=== PATIENT | male | born 1975 | race Hispanic/Latino ===

== ENCOUNTER 2016-08-19 17:45 | Inpatient (IN) | payer MEDICAID ==
[2016-08-19 17:52] VITALS: BMI 27.3
[2016-08-19 18:21] LABS: ADD MANUAL DIFF? NO
[2016-08-19 18:25] LABS: VENOUS BLOOD GAS BASE EXCESS 0.6 mmol/L (0.0-2.0); VENOUS BLOOD PH 7.36 (7.32-7.43)
[2016-08-19 18:29] LABS: BASO # 0.04 K/mm3 (0.0-2.0); BASO % 0.2 % (0.0-3.0); GRAN # 13.55 (1.4-6.5); GRAN % 74.6 % (50.0-68.0); HEMATOCRIT 40.3 % (42.0-52.0); LYMPH # 2.7 (1.2-3.4); LYMPH % 14.7 % (22.0-35.0); MEAN CELL VOLUME 86.7 fL (80.0-105.0); MEAN CORPUSCULAR HEMOGLOBIN 29.9 pg (25.0-35.0); MEAN CORPUSCULAR HGB CONC 34.5 g/dl (31.0-37.0); MEAN PLATELET VOLUME 11.6 fl (7.0-11.0); MONO # 1.9 (0.1-0.6); MONO % 10.5 % (1.0-6.0); PLATELET COUNT 313 10^3/uL (120.0-450.0); RED CELL DISTRIBUTION WIDTH 14.8 % (11.5-14.5); WHITE BLOOD COUNT 18.2 10^3/ul (4.5-11.0)
[2016-08-19 18:32] LABS: ALB/GLOB RATIO 1.7 (1.1-1.8); ALKALINE PHOSPHATASE 145 U/L (38-133); ALT/SGPT 28 U/L (7-56); AST/SGOT 23 U/L (15-59); BILIRUBIN,TOTAL 1.1 mg/dL (0.2-1.3); BLOOD UREA NITROGEN 44 mg/dL (7-21); CALCIUM 8.9 mg/dL (8.4-10.5); CARBON DIOXIDE 24 mmol/L (21-33); CHLORIDE 94 mmol/L (98-107); GFR AFRICAN-AMERICAN > 60; POTASSIUM 4.2 mmol/L (3.6-5.0); SODIUM 130 mmol/L (132-148)
[2016-08-19 18:35] LABS: INR 1.38 (0.93-1.08); PARTIAL THROMBOPLASTIN TIME 32.4 Seconds (23.7-30.8)
[2016-08-19 18:36] LABS: GLUCOSE,RANDOM 436 mg/dL (70-110)
[2016-08-19 18:43] LABS: ARTERIAL BLOOD GAS HCO3 25.4 mmol/L (21-28); ARTERIAL BLOOD GAS O2 CAPACITY 19.1 mL/dl (16-24); ARTERIAL BLOOD GAS PH 7.36 (7.35-7.45); ARTERIAL BLOOD HGB O2 SAT 90.9 % (95.0-98.0); CARBOXYHEMOGLOBIN 2.3 % (0.5-1.5); HHB 5.8 % (0-5)
[2016-08-19] MEDS ORDERED: Iodixanol 320 MG/ML 100 ML BOTTLE IV ONE (18:43)
[2016-08-19 18:44] LABS: TROPONIN I < 0.01 ng/mL
[2016-08-19 18:45] LABS: URINE BILIRUBIN NEGATIVE (NEGATIVE); URINE BLOOD NEGATIVE (NEGATIVE); URINE GLUCOSE (UA) 250 mg/dL (NEGATIVE); URINE KETONE TRACE mg/dL (NEGATIVE); URINE LEUKOCYTE ESTERASE NEGATIVE Leu/uL (NEGATIVE); URINE PROTEIN NEGATIVE mg/dL (<30 mg/dL)
[2016-08-19 18:57] LABS: URINE APPEARANCE CLEAR (CLEAR); URINE COLOR YELLOW (YELLOW)
--- NOTE | 2016-08-19 19:15 | ED PDOC ---
Arrival/HPI - General Historian: Patient - General Chief Complaint: Shortness Of Breath Time Seen by Provider: 08/19/16 17:55 - History of Present Illness Narrative History of Present Illness (Text): 08/19/16 19:00 40yo male with PMHx of IDDM, Factor 5 Leiden deficiency, PE, hypertension, CHF present with complaint SOB, left lower leg pain/redness/swelling. States SOB started this morning. Lower leg redness started few days ago and became worse today. He notes surgical history of Tonsillectomy yesterday. Also notes mild cough. Reports subjective fever at home. 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 States he was placed on Zpack s/p the tonsillectomy. Denies hemoptysis, chest pain, nausea, vomiting, diaphoresis, abdominal pain, calf pain, orthopnea, any other complaint. (Brandy Brewster A) Past Medical History - Provider Review Nursing Documentation Reviewed: Yes - Infectious Disease Hx of Infectious Diseases: None - Tetanus Immunization Tetanus Immunization: Up to Date (3 years ago) - Cardiac Hx Cardiac Disorders: Yes Hx Congestive Heart Failure: Yes - Pulmonary Hx Respiratory Disorders: Yes Hx Pneumonia: Yes Other/Comment: multiple PE and DVT - Neurological Hx Neurological Disorder: No - HEENT Hx HEENT Disorder: No - Renal Hx Renal Disorder: No - Endocrine/Metabolic Hx Diabetes Mellitus Type 1: Yes (dx 2001) - Hematological/Oncological Hx Blood Transfusions: Yes Hx Blood Transfusion Reaction: No - Integumentary Hx Dermatological Disorder: Yes (VITILIGO) Hx Psoriasis: Yes (LEFT LEG) Other/Comment: Laser pressley on removed tattoo kishore. 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 - Musculoskeletal/Rheumatological Hx Musculoskeletal Disorders: Yes Hx Falls: No Hx Fractures: Yes (FEMORAL FX ORIF REMOVAL OF HARDWARE) Hx Unsteady Gait: Yes - Gastrointestinal Hx Gastrointestinal Disorders: Yes Hx Gastroesophageal Reflux: Yes - Genitourinary/Gynecological Hx Genitourinary Disorders: Yes Other/Comment: ERECTILE DYSFUNCTION/penile implant - Psychiatric Hx Psychophysiologic Disorder: No Hx Substance Use: Yes (HEROINE/COCAINE H/O QUIT LAST USED MONTH AGO) - Surgical History Hx Open Heart Surgery: Yes (remove blot clot 2004) Hx Splenectomy: Yes (2003) Other/Comment: Femur fracture 2003,DVT IVC FILTER,OPEN HEART SURGERY-CLOT REMOVAL FOR L VENTRICLE 2004. - Anesthesia Hx Anesthesia Reactions: No Hx Malignant Hyperthermia: No - Suicidal Assessment Feels Threatened In Home Enviroment: No Family/Social History - Physician Review Nursing Documentation Reviewed: Yes Family/Social History: Unknown Family HX Smoking Status: Never Smoked Hx Alcohol Use: Yes Hx Substance Use: Yes (HEROINE/COCAINE H/O QUIT LAST USED MONTH AGO) Substance used: Amphetamines Hx Substance Use Treatment: No Allergies/Home Meds Allergies/Adverse Reactions: Allergies No Known Allergies Allergy (Verified 08/02/15 09:41) Home Medications: Home Meds Medication Instructions Recorded Confirmed Insulin Lispro Mix 75/25 [humalog 40 unit SC BID 08/19/16 08/19/16 Mix 75/25 75 U/Ml-25 U/Ml 10 Ml] Lisinopril [Zestril] 5 mg PO DAILY 08/19/16 08/19/16 Warfarin [Coumadin] 10 mg PO DAILY 08/19/16 08/19/16 Review of Systems - Physician Review All systems were reviewed & negative as marked: Yes - Review of Systems Constitutional: Normal Eyes: Normal ENT: Normal Respiratory: SOB, Cough. absent: Sputum, Wheezing Cardiovascular: Normal Gastrointestinal: Normal Genitourinary Male: Normal Musculoskeletal: Normal Skin: Cellulitis (Left lower leg) Neurological: Normal Endocrine: Normal Hemo/Lymphatic: Normal Psychiatric: Normal Physical Exam Vital Signs Reviewed: Yes Temperature: Afebrile Blood Pressure: Normal Pulse: Regular Respiratory Rate: Normal Appearance: Positive for: Well-Appearing, Non-Toxic, Comfortable Pain Distress: None Mental Status: Positive for: Alert and Oriented X 3 - Systems Exam Head: Present: Atraumatic, Normocephalic Pupils: Present: PERRL Extroacular Muscles: Present: EOMI Conjunctiva: Present: Normal Mouth: Present: Moist Mucous Membranes Neck: Present: Normal Range of Motion Respiratory/Chest: Present: Clear to Auscultation, Good Air Exchange, Other ( Right base crackle). No: Respiratory Distress, Accessory Muscle Use, Wheezes, Decreased Breath Sounds, Rales, Retracting, Rhonchi Cardiovascular: Present: Regular Rate and Rhythm, Normal S1, S2. No: Murmurs Abdomen: Present: Normal Bowel Sounds. No: Tenderness, Distention, Peritoneal Signs Back: Present: Normal Inspection Upper Extremity: Present: Normal Inspection. No: Cyanosis, Edema Lower Extremity: Present: Edema (2+ Left LE), NORMAL PULSES, Tenderness, Erythema (Left distal lower anterior leg), Temperature Abnormalties (Warm to touch), Neurovascularly Intact. No: CALF TENDERNESS Neurological: Present: GCS=15, CN II-XII Intact, Speech Normal Skin: Present: Warm, Dry, Normal Color. No: Rashes Psychiatric: Present: Alert, Oriented x 3, Normal Insight, Normal Concentration Medical Decision Making ED Course and Treatment: 08/19/16 22:01 Pt present with complaint of SOB and left lower leg pain/redness. He had crackle on exam, but not hypoxic. Left lower leg cellulitis was noted. He had hyperglycemia but not in DKA. states he took his insulin earlier this morning. Leukocysotis was noted secondary to the clellulitis. Rocephin and Vancomycin was ordered. Insulin was given. B/L LE doppler was negative for DVT chest angio was read as no acute PE. CXR _ Moderate cardiomegaly EKG NSR with LAD and nonspecific Twave abnormality @ 92bpm. NO ST changes noted Pt admitted for CHF exacerbation, Cellulitis and hyperglycemia Case was DW Dr. Eng and he accepted pt into the service. (Narcisa,Happiness A) - Lab Interpretations Microbiology Results: Microbiology Results 08/19/16 17:50 Blood-Venous Blood Culture - Final Klebsiella Pneumoniae 08/19/16 17:50 Blood-Venous Gram Stain - Final 08/19/16 18:15 Blood-Venous Blood Culture - Final Klebsiella Pneumoniae Ssp Pneu 08/19/16 18:15 Blood-Venous Gram Stain - Final Lab Results: 08/19/16 17:50 08/19/16 17:50 Lab Results 08/19/16 20:26: POC Glucose (mg/dL) 381 H 08/19/16 18:37: pCO2 45, pO2 60.0 L, HCO3 25.4, ABG pH 7.36, ABG Total CO2 26.8 , ABG O2 Saturation 94.0 L, ABG O2 Content 18.0, ABG Base Excess -0.4, ABG Hemoglobin 14.1, ABG Carboxyhemoglobin 2.3 H, POC ABG HHb (Measured) 5.8 H, ABG Methemoglobin 1.0, ABG O2 Capacity 19.1, Hgb O2 Saturation 90.9 L, FiO2 21.0 08/19/16 18:15: Urine Color Yellow, Urine Appearance Clear, Urine pH 6.0, Ur Specific [place] 1.020, Urine Protein Negative, Urine Glucose (UA) 250 H, Urine Ketones Trace H, Urine Blood Negative, Urine Nitrate Negative, Urine Bilirubin Negative, Urine Urobilinogen 1.0 H, Ur Leukocyte Esterase Negative 08/19/16 17:50: Phosphorus 1.5 L, Magnesium 2.3 H 08/19/16 17:50: Sodium 130 L, Chloride 94 L, Potassium 4.2, Carbon Dioxide 24, Anion Gap 16, BUN 44 H, Creatinine 1.3, Est GFR ( Amer) > 60, Est GFR ( Non-Af Amer) > 60, Random Glucose 436 H* D, Calcium 8.9, Total Bilirubin 1.1, AST 23, ALT 28, Alkaline Phosphatase 145 H, Lactate Dehydrogenase 406, Total Creatine Kinase 44, Troponin I < 0.01, NT-Pro-B Natriuret Pep 2180 H, Total Protein 6.0, Albumin 3.8, Globulin 2.2, Albumin/Globulin Ratio 1.7 08/19/16 17:50: pO2 70 H, VBG pH 7.36, VBG pCO2 47.0, VBG HCO3 26.6, VBG Total CO2 28.0, VBG O2 Sat (Calc) 95.6 H, VBG Base Excess 0.6, VBG Potassium 4.4, Sodium 132.0, Chloride 92.0 L, Glucose 471 H*, Lactate 2.0, FiO2 21.0, Venous Blood Potassium 4.4 08/19/16 17:50: PT 14.9 H, INR 1.38 H, APTT 32.4 H 08/19/16 17:50: WBC 18.2 H D, RBC 4.65, Hgb 13.9 L, Hct 40.3 L, MCV 86.7, MCH 29.9, MCHC 34.5, RDW 14.8 H, Plt Count 313, MPV 11.6 H, Gran % 74.6 H, Lymph % ( Auto) 14.7 L, [place] % (Auto) 10.5 H, Eos % (Auto) 0.0 L, Baso % (Auto) 0.2, Gran # 13.55 H, Lymph # 2.7, [place] # 1.9 H, Eos # 0.0, Baso # 0.04 - RAD Interpretation Radiology Orders: 08/19/16 18:10 ANGIO CHEST PE PROTOCOL [CT] Stat DUPLEX LOWER EXTRM VEIN BILAT [US] Stat 08/19/16 18:51 CHEST PORTABLE [RAD] Stat - Medication Orders Current Medication Orders: Albuterol/Ipratropium (Duoneb 3 Mg/0.5 Mg (3 Ml) Ud) 3 ml IH [id number] [facility] Last Admin: 08/23/16 07:51 Dose: 3 ml Carvedilol (Coreg) 3.125 mg PO BID [facility] Last Admin: 08/22/16 17:46 Dose: 3.125 mg Enoxaparin Sodium (Lovenox) 80 mg SC DAILY [facility] PRN Reason: Protocol Furosemide (Lasix) 40 mg PO DAILY [facility] Last Admin: 08/22/16 09:14 Dose: 40 mg Meropenem 1g/NS 100mL IVPB (Meropenem 1g/Ns 100ml Ivpb) 1 gm in 100 mls @ 100 mls/hr IVPB Q8 [facility] PRN Reason: Protocol Stop: 08/30/16 14:38 Last Admin: 08/23/16 05:05 Dose: 100 mls/hr Insulin Detemir (Levemir) 20 unit SC HS [facility] Last Admin: 08/22/16 23:48 Dose: Not Given Non-Admin Reason: Blood Sugar Parameter Insulin Human Lispro (Humalog Med) 0 units SC ACHS [facility] PRN Reason: Protocol Last Admin: 08/22/16 22:02 Dose: Not Given Non-Admin Reason: Blood Sugar Parameter Insulin Lispro Protam/Lispro Human (Humalog Mix 75/25) 20 units SC ACB [facility] Last Admin: 08/22/16 08:08 Dose: 20 units Insulin Lispro Protam/Lispro Human (Humalog Mix 75/25) 10 units SC ACD [facility] Last Admin: 08/22/16 16:35 Dose: 10 unit Lidocaine HCl (Lidocaine 2% Viscous) 15 ml MM Q3H PRN PRN Reason: Pain, moderate (4-7) Last Admin: 08/21/16 22:05 Dose: 15 ml Lisinopril (Zestril) 5 mg PO DAILY [facility] Last Admin: 08/22/16 09:14 Dose: 5 mg Morphine Sulfate (Morphine) 2 mg IVP Q6 PRN PRN Reason: Pain, moderate (4-7) Last Admin: 08/23/16 05:04 Dose: 2 mg Re-Assess: MARQUISE Pain Assessment Document 08/23/16 06:04 SBO (Rec: 08/23/16 06:49 SBO [id number]) Pain Reassessment Is this a pain reassessment? Yes Sleep Is patient sleeping during reassessment? Yes Pantoprazole Sodium (Protonix Ec Tab) 40 mg PO 0600 [place] Last Admin: 08/23/16 05:04 Dose: 40 mg Warfarin Sodium (Coumadin) 7.5 mg PO 1800 [place] PRN Reason: Protocol Last Admin: 08/22/16 17:46 Dose: 7.5 mg Discontinued Medications Enoxaparin Sodium (Lovenox) 80 mg SC Q12H [facility] PRN Reason: Protocol Last Admin: 08/21/16 11:21 Dose: 80 mg Furosemide (Lasix) 40 mg IVP STAT STA Stop: 08/19/16 21:04 Last Admin: 08/19/16 21:14 Dose: 40 mg Furosemide (Lasix) 40 mg IVP Q12 [place] Last Admin: 08/21/16 21:58 Dose: 40 mg Ceftriaxone Sodium (Rocephin 1 Gram Ivpb) 1 gm in 100 mls @ 200 mls/hr IVPB STAT STA PRN Reason: Protocol Stop: 08/19/16 21:28 Last Admin: 08/19/16 21:14 Dose: 200 mls/hr Vancomycin HCl (Vancomycin 1gm) 1 gm in 250 mls @ 167 mls/hr IVPB STAT STA PRN Reason: Protocol Stop: 08/19/16 22:29 Last Admin: 08/19/16 22:00 Dose: 167 mls/hr Ceftriaxone Sodium (Rocephin 1 Gram Ivpb) 1 gm in 100 mls @ 100 mls/hr IVPB DAILY [facility] PRN Reason: Protocol Last Admin: 08/20/16 11:09 Dose: 100 mls/hr Insulin Human Regular (Humulin R Med) 10 units SC ONCE STA PRN Reason: Protocol Stop: 08/19/16 19:23 Last Admin: 08/19/16 20:38 Dose: 10 units Insulin Human Regular (Humulin R) Confirm Administered Dose 10 units .ROUTE .STK -MED ONE Stop: 08/19/16 20:24 Last Admin: 08/19/16 20:37 Dose: Iodixanol (Visipaque 320 Mg/Ml 100 Ml) Confirm Administered Dose 100 ml IV .STK- MED ONE Stop: 08/19/16 18:44 Iohexol (Omnipaque 350 100 Ml) Confirm Administered Dose 350 mg .ROUTE .STK-MED ONE Stop: 08/20/16 09:48 Iohexol (Omnipaque 240 (50 Ml)) Confirm Administered Dose 50 ml .ROUTE .STK-MED ONE Stop: 08/21/16 12:45 Oxycodone/Acetaminophen (Percocet 5/325 Mg Tab) 1 tab PO STAT STA Stop: 08/19/16 20:58 Last Admin: 08/19/16 21:14 Dose: 1 tab Re-Assess: MARQUISE Pain Assessment Document 08/19/16 22:14 FDE (Rec: 08/19/16 23:40 FDE [id number]) Pain Reassessment Is this a pain reassessment? Yes Sleep Is patient sleeping during reassessment? No Presence of Pain Presence of Pain No Oxycodone/Acetaminophen (Percocet 5/325 Mg Tab) 1 tab PO STAT STA Stop: 08/20/16 03:47 Last Admin: 08/20/16 03:55 Dose: 1 tab Re-Assess: MARQUISE Pain Assessment Document 08/20/16 04:55 [facility] (Rec: 08/20/16 05:16 [id number] Pain Reassessment Is this a pain reassessment? Yes Sleep Is patient sleeping during reassessment? Yes Pantoprazole Sodium (Protonix Inj) 40 mg IVP DAILY [facility] Last Admin: 08/22/16 09:15 Dose: 40 mg Warfarin Sodium (Coumadin) 6 mg PO 1800 [place] PRN Reason: Protocol Disposition/Present on Arrival - Present on Arrival Any Indicators Present on Arrival: No History of DVT/PE: Yes History of Uncontrolled Diabetes: No Urinary Catheter: No History of Decub. Ulcer: No History Surgical Site Infection Following: None - Disposition Have Diagnosis and Disposition been Completed?: Yes Disposition Time: 21:00 - Disposition Diagnosis: Cellulitis, Congestive heart failure (CHF), Hyperglycemia Disposition: HOSPITALIZED Patient Problems: Current Active Problems Problem Status Onset Cellulitis Acute Congestive heart failure (CHF) Acute Hyperglycemia Acute Condition: FAIR
--- NOTE | 2016-08-19 19:18 | US ---
HISTORY: Leg pain and swelling. Evaluate for DVT PHYSICIAN(S): Jasbir Juarez MD. TECHNIQUE: Duplex sonography and color-flow Doppler with graded compression were used to evaluate the deep venous systems of both lower extremities. FINDINGS: The visualized deep venous systems of both lower extremities are sonographically normal and compressible. Normal wave forms and augmentation are seen. There is no sonographic evidence for deep venous thrombosis in the visualized segments of both lower extremities. IMPRESSION: No sonographic evidence for deep venous thrombosis in the visualized segments of both lower extremities.
[2016-08-19] MEDS ORDERED: Insulin Reg-MEDIUM-Coverage SC STA (19:22)
[2016-08-19] MEDS ORDERED: Morphine 4 mg/ml ISec IVP STA (20:14)
[2016-08-19] MEDS ORDERED: Insulin Regular 1 UNITS/0.01 ML ML ONE (20:23)
[2016-08-19] MEDS ORDERED: Oxycodone/Acetaminophen 5/325 mg Tab PO STA (20:57)
[2016-08-19] MEDS ORDERED: cefTRIAXone 1 gm 1 GM/100 ML BAG IVPB STA (20:59)
[2016-08-19] MEDS ORDERED: Vancomycin 1gm in NS 250ml 1 GM/250 ML BAG IVPB STA (21:00)
[2016-08-19 21:19] LABS: MAGNESIUM 2.3 mg/dL (1.7-2.2); PHOSPHOROUS 1.5 mg/dL (2.5-4.5)
--- NOTE | 2016-08-19 22:27 | CP.PCM.HP ---
<Quincy Tripathi - Last Filed: 08/20/16 05:41> History of Present Illness - History of Present Illness History of Present Illness: cc: dyspnea HPI: Patient is a 40yo male with extensive past medical history of congestive heart failure (LVEF ~10-15%), DM, DVT s/p IVC filter placement, factor v leiden mutation, psoriasis that presents c/o fever, chills, dyspnea, bodyaches and headache that started this morning. Patient reported that he was at [facility] yesterday and underwent a tonsillectomy. He reported that he had the procedure done and was discharged the same day with a prescription for azithromycin. He reported that this morning he woke up feeling unwell and decided to come to the emergency room for evaluation. He reported that he has had multiple admissions in the past for pneumonia and had recently had multiple cases of strep throat for which he underwent the tonsillectomy. He stated that he regularly follows up with his reimbursement representative, Dr. Villalpando and had last seen him one month prior for surgical clearance. He denied chest pain, palpitations, abdominal pain, nausea, vomiting, cough, focal weakness, numbness, tingling. 12 point ROS as per HPI above, otherwise negative PMHx: CHF (EF ~10-15%), DM, DVT, factor V leidin mutation, psoriasis, erectile dysfunction PSHx: open heart surgery, spleenectomy, IVC filter placement, left femoral fracture s/p ORIF, penile implant for ED Allergies: NDKA Medications: Humalog 75/25, lantus 40u HS, Coumadin 6mg po daily, lasix 80mg po daily, lisinopril 5mg po daily Family Hx: Sister: Cervical Ca; Father: from [place] at age 47yo; Grandmother (maternal): DMT2 Social hx: Alcohol abuse for over 15yrs, reports quiting 3 months ago; denies tobacco use; admits to prior amphetamine use; denies heroine and cocaine use; lives with family PMD: Dr. Lowe Riveter Pneumatic: Dr. Villalpando Present on Admission - Present on Admission Any Indicators Present on Admission: Yes History of DVT/PE: Yes Past Patient History - Infectious Disease Hx of Infectious Diseases: None - Tetanus Immunizations Tetanus Immunization: Up to Date (3 years ago) - Past Medical History & Family History Past Medical History?: Yes - Past Social History Smoking Status: Never Smoked - CARDIAC Hx Cardiac Disorders: Yes Hx Congestive Heart Failure: Yes - PULMONARY Hx Respiratory Disorders: Yes Hx Pneumonia: Yes Other/Comment: multiple PE and DVT - NEUROLOGICAL Hx Neurological Disorder: No - HEENT Hx HEENT Problems: No - RENAL Hx Chronic Kidney Disease: No - ENDOCRINE/METABOLIC Hx Diabetes Mellitus Type 1: Yes (dx 2001) - HEMATOLOGICAL/ONCOLOGICAL Hx Blood Transfusions: Yes Hx Blood Transfusion Reaction: No - INTEGUMENTARY Hx Dermatological Problems: Yes (VITILIGO) Hx Psoriasis: Yes (LEFT LEG) Other/Comment: Laser pressley on removed tattoo kishore. 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 - MUSCULOSKELETAL/RHEUMATOLOGICAL Hx Musculoskeletal Disorders: Yes Hx Falls: No Hx Fractures: Yes (FEMORAL FX ORIF REMOVAL OF HARDWARE) Hx Unsteady Gait: Yes - GASTROINTESTINAL Hx Gastrointestinal Disorders: Yes Hx Gastroesophageal Reflux: Yes - GENITOURINARY/GYNECOLOGICAL Hx Genitourinary Disorders: Yes Other/Comment: ERECTILE DYSFUNCTION/penile implant - PSYCHIATRIC Hx Psychophysiologic Disorder: No Hx Substance Use: Yes (HEROINE/COCAINE H/O QUIT LAST USED MONTH AGO) - SURGICAL HISTORY Hx Open Heart Surgery: Yes (remove blot clot 2004) Hx Splenectomy: Yes (2003) Other/Comment: Femur fracture 2003,DVT IVC FILTER,OPEN HEART SURGERY-CLOT REMOVAL FOR L VENTRICLE 2004. - ANESTHESIA Hx Anesthesia Reactions: No Hx Malignant Hyperthermia: No Meds Allergies/Adverse Reactions: Allergies Allergy/AdvReac Type Severity Reaction Status Date / Time No Known Allergies Allergy Verified 08/02/15 09:41 Physical Exam - Constitutional Appears: No Acute Distress - Head Exam Head Exam: ATRAUMATIC, NORMAL INSPECTION, NORMOCEPHALIC - Eye Exam Eye Exam: EOMI, PERRL - ENT Exam ENT Exam: Mucous Membranes Moist - Neck Exam Neck exam: Positive for: Normal Inspection. Negative for: Lymphadenopathy, Tenderness, Thyromegaly - Respiratory Exam Respiratory Exam: Clear to Auscultation Bilateral. absent: Rales, Rhonchi, Wheezes - Cardiovascular Exam Cardiovascular Exam: RRR, +S1, +S2. absent: Gallop, Rubs - GI/Abdominal Exam GI & Abdominal Exam: Normal Bowel Sounds, Soft. absent: Distended, Firm, Guarding, Rebound, Tenderness - Extremities Exam Extremities exam: Positive for: pedal pulses present. Negative for: calf tenderness, tenderness Additional comments: LLE cellulitis vs venous stasis 2+ pitting edema - Neurological Exam Neurological exam: Alert, CN II-XII Intact, Oriented x3 - Psychiatric Exam Psychiatric exam: Normal Affect, Normal Mood - Skin Skin Exam: Dry, Intact, Rash (LLE cellulitis ), Warm Results - Vital Signs Recent Vital Signs: Last Vital Signs Temp 98.1 F 08/19/16 20:36 Pulse 74 08/19/16 20:36 Resp 16 08/19/16 20:36 BP 92/59 L 08/19/16 21:14 Pulse Ox 95 08/19/16 20:36 - Labs Result Diagrams: 08/19/16 17:50 08/19/16 17:50 Assessment & Plan - Assessment and Plan (Free Text) Plan: 40yo male with history of CHF (LVEF 10-15%), DVT s/p IVC filter placement, factor v leidin mutation, psoriasis presents c/o fever, chills, headache, SOB and bodyaches s/p tonsillectomy yesterday 1. CHF exacerbation -LVEF ~10-15% on echocardiogram from 2015; see full report -BNP 2180 -Troponin negative x1, will trend -Echocardiogram pending -B/L venous duplex negative for DVT -CXR revealed vascular congestion; no apparent infiltrates; cardiomegaly -CT angio revealed no dissection or acute process in the lungs; small focal questionable filling defect of one of the segments of the left base, which may represent old PE, artifact, however a small acute PE in the area cannot be excluded but is felt to be less likely; see full report -Patient started on Lasix 40mg IVP q12h -Continue home lisinopril 5mg po qd -Strict I's and O's; Daily weight; HOB > 45', O2 supplementation -Cardiology consulted - Dr. Beaulieu 2. Diabetes mellitus -Patient started on Humalog 75/25 20U ACB and 10U ACD -Levemir 20U HS -Humalog ISS medium dose -Fingersticks ACHS -Consistent carb/heart healthy diet 3. History of DVT -Subtherapeutic INR; patient had his warfarin held prior to tonsillectomy -Continue warfarin 6mg PO daily -Repeat INR in AM 4. LLE cellulitis -leukocytosis, afebrile -Patient given Rocephin/Vanc in the ED -Started on rocephin 1gm IV -ID consult pending - Dr. Suarez 6. GI/DVT prophylaxis -Protonix/coumadin Patient seen and case discussed with attending, Dr. Eng - Date & Time Date: 08/19/16 Time: 22:28 <Margareth Eng - Last Filed: 08/20/16 20:20> Results - Vital Signs Recent Vital Signs: Last Vital Signs Temp 99.4 F 08/20/16 18:00 Pulse 83 08/20/16 18:00 Resp 20 08/20/16 18:00 BP 108/71 08/20/16 18:00 Pulse Ox 100 08/20/16 05:56 - Labs Result Diagrams: 08/20/16 06:30 08/20/16 06:30 Labs: Laboratory Results - last 24 hr 08/19/16 08/20/16 08/20/16 23:31 00:20 02:57 WBC RBC Hgb Hct MCV MCH MCHC RDW Plt Count MPV Gran % Lymph % (Auto) [place] % (Auto) Eos % (Auto) Baso % (Auto) Gran # Lymph # [place] # Eos # Baso # PT INR Sodium Potassium Chloride Carbon Dioxide Anion Gap BUN Creatinine Est GFR ( Amer) Est GFR (Non-Af Amer) POC Glucose (mg/dL) 308 H 326 H Random Glucose Calcium Total Bilirubin AST ALT Alkaline Phosphatase Troponin I < 0.01 Total Protein Albumin Globulin Albumin/Globulin Ratio Procalcitonin 08/20/16 08/20/16 08/20/16 06:30 06:30 06:30 WBC 14.4 H D RBC 4.64 Hgb 13.4 L Hct 40.5 L MCV 87.3 MCH 28.9 MCHC 33.1 RDW 14.9 H Plt Count 327 MPV 11.6 H Gran % 70.2 H Lymph % (Auto) 15.9 L [place] % (Auto) 13.7 H Eos % (Auto) 0.1 L Baso % (Auto) 0.1 Gran # 10.10 H Lymph # 2.3 [place] # 2.0 H Eos # 0.0 Baso # 0.02 PT INR Sodium 134 Potassium 4.2 Chloride 97 L Carbon Dioxide 25 Anion Gap 16 BUN 33 H Creatinine 1.0 Est GFR ( Amer) > 60 Est GFR (Non-Af Amer) > 60 POC Glucose (mg/dL) Random Glucose 290 H Calcium 8.8 Total Bilirubin 0.9 AST 18 ALT 32 Alkaline Phosphatase 127 Troponin I < 0.01 Total Protein 5.7 L Albumin 3.6 Globulin 2.1 Albumin/Globulin Ratio 1.7 Procalcitonin 1.90 H 08/20/16 08/20/16 08/20/16 06:30 07:35 11:13 WBC RBC Hgb Hct MCV MCH MCHC RDW Plt Count MPV Gran % Lymph % (Auto) [place] % (Auto) Eos % (Auto) Baso % (Auto) Gran # Lymph # [place] # Eos # Baso # PT 16.1 H INR 1.49 H Sodium Potassium Chloride Carbon Dioxide Anion Gap BUN Creatinine Est GFR ( Amer) Est GFR (Non-Af Amer) POC Glucose (mg/dL) 299 H 218 H Random Glucose Calcium Total Bilirubin AST ALT Alkaline Phosphatase Troponin I Total Protein Albumin Globulin Albumin/Globulin Ratio Procalcitonin 08/20/16 16:16 WBC RBC Hgb Hct MCV MCH MCHC RDW Plt Count MPV Gran % Lymph % (Auto) [place] % (Auto) Eos % (Auto) Baso % (Auto) Gran # Lymph # [place] # Eos # Baso # PT INR Sodium Potassium Chloride Carbon Dioxide Anion Gap BUN Creatinine Est GFR ( Amer) Est GFR (Non-Af Amer) POC Glucose (mg/dL) 260 H Random Glucose Calcium Total Bilirubin AST ALT Alkaline Phosphatase Troponin I Total Protein Albumin Globulin Albumin/Globulin Ratio Procalcitonin Attending/Attestation - Attestation I have personally seen and examined this patient.: Yes I have fully participated in the care of the patient.: Yes I have reviewed all pertinent clinical information: Yes Notes (Text): 08/20/16 20:19 Patient was seen when he was in bed # 14 in the ER. Agree with history, physical examination , assessment and plan.
[2016-08-19] MEDS: Insulin Lispro (humaLOG) MEDIUM Coverage SC SCH ×2 (22:30→23:37)
[2016-08-19] MEDS: Insulin Detemir 100 units/ml Vial (Levemir) SC SCH (23:49)
[2016-08-20] MEDS ORDERED: Oxycodone/Acetaminophen 5/325 mg Tab PO STA (03:46)
[2016-08-20 08:03] LABS: ADD MANUAL DIFF? NO
[2016-08-20 08:09] LABS: BASO # 0.02 K/mm3 (0.0-2.0); BASO % 0.1 % (0.0-3.0); EOS % 0.1 % (1.5-5.0); GRAN % 70.2 % (50.0-68.0); HEMATOCRIT 40.5 % (42.0-52.0); LYMPH # 2.3 (1.2-3.4); LYMPH % 15.9 % (22.0-35.0); MEAN CELL VOLUME 87.3 fL (80.0-105.0); MEAN CORPUSCULAR HEMOGLOBIN 28.9 pg (25.0-35.0); MEAN CORPUSCULAR HGB CONC 33.1 g/dl (31.0-37.0); MEAN PLATELET VOLUME 11.6 fl (7.0-11.0); MONO % 13.7 % (1.0-6.0); PLATELET COUNT 327 10^3/uL (120.0-450.0); RED CELL DISTRIBUTION WIDTH 14.9 % (11.5-14.5); WHITE BLOOD COUNT 14.4 10^3/ul (4.5-11.0)
[2016-08-20 08:19] LABS: ALB/GLOB RATIO 1.7 (1.1-1.8); ALKALINE PHOSPHATASE 127 U/L (38-133); ALT/SGPT 32 U/L (7-56); AST/SGOT 18 U/L (15-59); BILIRUBIN,TOTAL 0.9 mg/dL (0.2-1.3); BLOOD UREA NITROGEN 33 mg/dL (7-21); CALCIUM 8.8 mg/dL (8.4-10.5); CARBON DIOXIDE 25 mmol/L (21-33); CHLORIDE 97 mmol/L (98-107); GFR AFRICAN-AMERICAN > 60; GLUCOSE,RANDOM 290 mg/dL (70-110); POTASSIUM 4.2 mmol/L (3.6-5.0); SODIUM 134 mmol/L (132-148); TOTAL PROTEIN 5.7 g/dL (5.8-8.3)
[2016-08-20 08:21] LABS: INR 1.49 (0.93-1.08)
[2016-08-20 08:31] LABS: TROPONIN I < 0.01 ng/mL
[2016-08-20] MEDS: Insulin Lispro (humaLOG) MEDIUM Coverage SC SCH ×4 (08:42→21:58)
[2016-08-20] MEDS: Insulin Lispro (humaLOG) MIX 75/25(10 ml) SC SCH ×2 (09:03→16:58)
[2016-08-20] MEDS ORDERED: Iohexol 350 MG/100 ML VIAL ONE (09:47)
--- NOTE | 2016-08-20 09:48 | RAD ---
HISTORY: sob COMPARISON: 08/06/2016 FINDINGS: LUNGS: No active pulmonary disease. PLEURA: No significant pleural effusion identified, no pneumothorax apparent. CARDIOVASCULAR: Mild cardiomegaly OSSEOUS STRUCTURES: Sternal wires VISUALIZED UPPER ABDOMEN: Normal. OTHER FINDINGS: None. IMPRESSION: No active disease.
[2016-08-20] MEDS: Morphine 2 mg/ml ISec IVP PRN ×3 (09:55→21:43)
[2016-08-20] MEDS ORDERED: cefTRIAXone 1 gm 1 GM/100 ML BAG IVPB SCH (10:00)
--- NOTE | 2016-08-20 10:29 | CON ---
DATE: 08/20/2016 INDICATIONS: Shortness of breath, cardiomyopathy. HISTORY OF PRESENT ILLNESS: This is a 40-year-old man admitted yesterday with multiple symptoms, including shortness of breath, fever, chills, sore throat, body aches and left leg and foot discomfort. There was no chest pain, orthopnea , PND, syncope, presyncope, lightheadedness, dizziness, vertigo, palpitations, edema or claudication. There was no hemoptysis, abdominal pain, nausea, vomiting, diarrhea, constipation, or melena. PAST MEDICAL HISTORY: Complex. He has factor V Leiden mutation, a history of cardiomyopathy with left ventricular ejection fraction said to be 10-15%, congestive heart failure, pneumonia, DVT, IVC filter, pulmonary embolus with surgical thrombectomy, diabetes, hypertension, splenectomy, right knee hemarthrosis, recent tonsil and adenoid surgery on 08/18, psoriasis, history of left femur fracture, erectile dysfunction with penile implant. He has a history of smoking in the past. He has a history of drug use which has included amphetamine and heroin, although the record is not clear on this. Toxic screen was not done on admission. MEDICATIONS: At the time of admission include Humalog, Lantus, Coumadin, Lasix , and lisinopril. He follows with Dr. Diane for his cardiac condition. ALLERGIES: There are no medication allergies reported. SOCIAL HISTORY: He lives at home. He is ambulatory. He does not smoke at this time. He denies recent drug use. REVIEW OF SYSTEMS: A 10-point review of systems is otherwise unremarkable except as noted above. PHYSICAL EXAMINATION: GENERAL: He is a well-developed male sitting on his bed on telemetry in no acute distress. VITAL SIGNS: Notable for sinus rhythm at 75 beats per minute, afebrile, blood pressure 95/52, respirations 16-18, O2 sat 95-100% on nasal cannula and room air. HEENT: Reveals no neck vein distention, thyromegaly, or carotid bruits. Mucous membranes are moist. Conjunctivae are pink. NECK: Supple. LUNGS: A few scattered rhonchi. HEART: Revealed distant first and second heart sounds. A soft systolic murmur along the left sternal border. PMI is displaced laterally. ABDOMEN: Soft. Bowel sounds present. No mass, organomegaly, tenderness, rebound, guarding, CVA tenderness or palpable abdominal aortic aneurysm. EXTREMITIES: Revealed no cyanosis, clubbing or edema. There is a reddened area of the left lower extremity. NEUROLOGIC: He is awake, alert and oriented. PSYCHIATRIC: Normal as to mood and affect. SKIN: Warm and dry. No rash or cellulitis. LABORATORY AND IMAGING: A CT of the chest was done. The report is not available. The ER states that it was negative for PE. A lower extremity venous Doppler study revealed no evidence of DVT. An EKG demonstrates regular sinus rhythm, left anterior hemiblock, poor R-wave progression, low voltage limb leads, ST-T wave changes. No change from a previous EKG. A portable chest x-ray is not interpreted yet. It shows cardiomegaly, sternal sutures. No evidence of CHF, infiltrate or effusion by my interpretation. White count elevated 18,200, repeat 14,400, hemoglobin 13.4, hematocrit 40.5, platelet count 327,000. PT 14.9, repeat 16.1, INR 1.38, repeat 1.49. PTT 32.4. Blood gases are noted. Electrolytes notable for sodium of 130, BUN 44, creatinine 1.3. Blood sugar was 436 on admission. Repeat has been in 200 and 300 range. Magnesium 2.3. LFTs mildly abnormal. CK 44, troponin negative x 2. BNP 2180. Sodium this morning is 134. IMPRESSION: The patient is a 40-year-old male with known cardiomyopathy, known factor V Leiden mutation, aa history of deep venous thrombosis, pulmonary embolus, on Coumadin therapy with a history of drug abuse, noncompliance and recent tonsil and adenoid surgery, admitted with sore throat, shortness of breath, diffuse body aches, left lower extremity pain, possible cellulitis. PLAN: At this time, I will review his old records. An echocardiogram is ordered. He has been given IV Lasix. He is complaining of pain. This will be evaluated. A toxic screen should be done. He is getting warfarin, but he is subtherapeutic following tonsillectomy. Warfarin is reumed. His INR should be monitored daily. We should monitor I's and O's, stool for occult blood. An ID consult is pending. He has been cultured. He is getting antibiotics. He should be considered for Coreg therapy. He should be considered for a defibrillator. He states that he has not been offered this, although he is under the care of a non destructive evaluation manager. There may be medical noncompliance involved in his case. There may be continued drug use involved in his case. I will follow along with you. I will make additional recommendations based on his clinical course. Milind Beaulieu MD cc: [id number] TT: 08/20/2016 10:29:26 Confirmation # [id number] Dictation # [id number] MTDD
--- NOTE | 2016-08-20 10:42 | CT ---
PROCEDURE: CT NECK WITH CONTRAST HISTORY: neck mass COMPARISON: None TECHNIQUE: CT of the neck with intravenous contrast. Coronal and sagittal reformats generated. Intravenous contrast dose: 100 cc of Omni 350 Radiation dose: DLP 376 mGy-cm This CT exam was performed using one or more of the following dose reduction techniques: Automated exposure control, adjustment of the mA and/or kV according to patient size, and/or use of iterative reconstruction technique. FINDINGS: NASOPHARYNX: Unremarkable. SUPRAHYOID NECK: Small collections of air are seen bilaterally in the palatine tonsils and adjacent parapharyngeal space. This could be secondary to gas-forming infection. There is no evidence of an abscess. There is no airway obstruction. Clinical correlation is suggested. The findings are best seen on axial image 21 INFRAHYOID NECK: Unremarkable larynx, hypopharynx, and supraglottic space. Vocal cords intact. MASS: None. GLANDS: Parotid and submandibular glands unremarkable. Normal size thyroid gland, without nodule. LYMPH NODES: Normal. No lymphadenopathy. CERVICAL SPINE: No fracture or focal lesion. VASCULAR STRUCTURES: Unremarkable. OTHER FINDINGS: None. IMPRESSION: Small collections of air are seen bilaterally in the palatine tonsils and adjacent parapharyngeal space. This could be secondary to gas-forming infection. There is no evidence of an abscess. There is no airway obstruction. Clinical correlation is suggested
--- NOTE | 2016-08-20 10:59 | CP.PCM.PN ---
<Damián Barrett - Last Filed: 08/20/16 11:01> Subjective - Date & Time of Evaluation Date of Evaluation: 08/20/16 Time of Evaluation: 11:00 - Subjective Subjective: Med progress note. Attending: Dr. Hutchinson Pt seen and examined at bedside. No acute distress. Pt complaining of neck pain , will order ct scan. also has some right foot pain, x rays ordered. ID pending. Objective - Vital Signs/Intake and Output Vital Signs (last 24 hours): Temp Pulse Resp BP Pulse Ox 97.9 F 75 18 95/52 L 100 08/20/16 05:56 08/20/16 05:56 08/20/16 05:56 08/20/16 05:56 08/20/16 05:56 Intake and Output: 08/20/16 08/20/16 06:59 18:59 Intake Total 360 Balance 360 - Medications Medications: Current Medications Furosemide (Lasix) 40 mg IVP Q12 [place] Ceftriaxone Sodium (Rocephin 1 Gram Ivpb) 1 gm in 100 mls @ 100 mls/hr IVPB DAILY [place] PRN Reason: Protocol Insulin Detemir (Levemir) 20 unit SC HS [facility] Last Admin: 08/19/16 23:49 Dose: 20 unit Insulin Human Lispro (Humalog Med) 0 units SC ACHS [place] PRN Reason: Protocol Last Admin: 08/20/16 08:42 Dose: 5 units Insulin Lispro Protam/Lispro Human (Humalog Mix 75/25) 20 units SC ACB [place] Last Admin: 08/20/16 09:03 Dose: 20 units Insulin Lispro Protam/Lispro Human (Humalog Mix 75/25) 10 units SC ACD [facility] Lisinopril (Zestril) 5 mg PO DAILY [facility] Morphine Sulfate (Morphine) 2 mg IVP Q6 PRN PRN Reason: Pain, moderate (4-7) Last Admin: 08/20/16 09:55 Dose: 2 mg Pantoprazole Sodium (Protonix Inj) 40 mg IVP DAILY [facility] Warfarin Sodium (Coumadin) 7.5 mg PO 1800 LA PRN Reason: Protocol - Labs Labs: 08/20/16 06:30 08/20/16 06:30 PT 16.1 Seconds (9.9-11.8) H 08/20/16 06:30 INR 1.49 (0.93-1.08) H 08/20/16 06:30 APTT 32.4 Seconds (23.7-30.8) H 08/19/16 17:50 - Constitutional Appears: Non-toxic, No Acute Distress - Head Exam Head Exam: ATRAUMATIC, NORMAL INSPECTION, NORMOCEPHALIC - Eye Exam Eye Exam: EOMI - ENT Exam ENT Exam: Mucous Membranes Moist - Neck Exam Neck Exam: Full ROM, Normal Inspection - Respiratory Exam Respiratory Exam: NORMAL BREATHING PATTERN. absent: Respiratory Distress - Cardiovascular Exam Cardiovascular Exam: +S1, +S2 - GI/Abdominal Exam GI & Abdominal Exam: Soft, Normal Bowel Sounds. absent: Tenderness - Extremities Exam Extremities Exam: Tenderness - Neurological Exam Neurological Exam: Alert, Awake, Oriented x3 - Psychiatric Exam Psychiatric exam: Flat Affect - Skin Skin Exam: Dry, Intact, Normal Color, Warm Assessment and Plan - Assessment and Plan (Free Text) Assessment: This is a 40 yo male with past medical history of CHF (LVEF 10-15%), DVT s/p IVC filter placement, factor v leidin mutation, psoriasis presents c/o fever, chills, headache, SOB and bodyaches s/p tonsillectomy yesterday 1. CHF exacerbation -LVEF ~10-15% on echocardiogram from 2016; see full report -BNP 2180 -Troponin negative -Echocardiogram pending -B/L venous duplex negative for DVT -CXR revealed vascular congestion; no apparent infiltrates; cardiomegaly -CT angio revealed no dissection or acute process in the lungs; small focal questionable filling defect of one of the segments of the left base, which may represent old PE, artifact, however a small acute PE in the area cannot be excluded but is felt to be less likely; see full report -Patient started on Lasix 40mg IVP q12h -Continue home lisinopril 5mg po qd -Strict I's and O's; Daily weight; HOB > 45', O2 supplementation -Cardiology consulted - Dr. Beaulieu 2. Diabetes mellitus -Patient started on Humalog 75/25 20U ACB and 10U ACD -Levemir 20U HS -Humalog ISS medium dose -Fingersticks ACHS -Consistent carb/heart healthy diet 3. History of DVT -Subtherapeutic INR; patient had his warfarin held prior to tonsillectomy -Continue warfarin 7.5 mg PO daily -Repeat INR in AM 4. LLE cellulitis -leukocytosis, afebrile -Patient given Rocephin/Vanc in the ED -Started on rocephin 1gm IV -ID consult- Dr. Suarez -morphine for pain 5. Neck mass -gram neg in blood -ct scan with contrast 6. Pain in right foot -xrays pending 7. GI/DVT prophylaxis -Protonix/warfarin discussed with Dr. Hutchinson. <Irvin Hutchinson - Last Filed: 08/20/16 14:56> Objective - Vital Signs/Intake and Output Vital Signs (last 24 hours): Temp Pulse Resp BP Pulse Ox 97.9 F 64 18 105/69 100 08/20/16 05:56 08/20/16 11:10 08/20/16 05:56 08/20/16 11:10 08/20/16 05:56 Intake and Output: 08/20/16 08/20/16 06:59 18:59 Intake Total 360 Balance 360 - Medications Medications: Current Medications Furosemide (Lasix) 40 mg IVP Q12 [facility] Last Admin: 08/20/16 11:09 Dose: 40 mg Meropenem 1g/NS 100mL IVPB (Meropenem 1g/Ns 100ml Ivpb) 1 gm in 100 mls @ 100 mls/hr IVPB Q8 [place] PRN Reason: Protocol Stop: 08/30/16 14:38 Insulin Detemir (Levemir) 20 unit SC HS [facility] Last Admin: 08/19/16 23:49 Dose: 20 unit Insulin Human Lispro (Humalog Med) 0 units SC ACHS [facility] PRN Reason: Protocol Last Admin: 08/20/16 08:42 Dose: 5 units Insulin Lispro Protam/Lispro Human (Humalog Mix 75/25) 20 units SC ACB [facility] Last Admin: 08/20/16 09:03 Dose: 20 units Insulin Lispro Protam/Lispro Human (Humalog Mix 75/25) 10 units SC ACD [facility] Lisinopril (Zestril) 5 mg PO DAILY [facility] Last Admin: 08/20/16 11:10 Dose: 5 mg Morphine Sulfate (Morphine) 2 mg IVP Q6 PRN PRN Reason: Pain, moderate (4-7) Last Admin: 06/24/17 09:55 Dose: 2 mg Pantoprazole Sodium (Protonix Inj) 40 mg IVP DAILY [facility] Last Admin: 08/20/16 11:09 Dose: 40 mg Warfarin Sodium (Coumadin) 7.5 mg PO 1800 LA PRN Reason: Protocol - Labs Labs: 08/20/16 06:30 08/20/16 06:30 PT 16.1 Seconds (9.9-11.8) H 08/20/16 06:30 INR 1.49 (0.93-1.08) H 08/20/16 06:30 APTT 32.4 Seconds (23.7-30.8) H 08/19/16 17:50 Attending/Attestation - Attestation I have personally seen and examined this patient.: Yes I have fully participated in the care of the patient.: Yes I have reviewed all pertinent clinical information, including history, physical exam and plan: Yes Notes (Text): 08/20/16 14:45 40 year old male with past medical history of CHF (EF 10-15%), DVT s/p IVC filter, factor V leidin mutation and diabetes who presented with complaints of bodyaches and shortness of breath. Symptoms began after recent tonsillectomy. CXR and CT chest are unremarkable. BNP was 2180. Cardiology is following. Patient is on iv lasix. Echocardiogram is pending. He is on coumadin for history of DVT. INR is subtherapeutic and coumadin was increased to 7.5 mg tonight. He is on iv antibiotics for LE cellulitis. Blood culture grew gram negative rods. ID is following. He reports difficulty swallowing. Had recent tonsillectomy. Continue with liquid diet as tolerated. Speech/Swallow evaluation was requested. CT soft neck was done which showed small collections of air in the palatine tonsils adjacent parapharyngeal space; no evidence of abscess; no obstruction. ENT evaluation is requested. Continue with home medications for diabetes. Complained on right ankle/foot pain. Xrays were ordered which were negative. Irvin Hutchinson MD Hospitalist.
--- NOTE | 2016-08-20 11:07 | RAD ---
PROCEDURE: Right Ankle Radiographs. HISTORY: pain COMPARISON: None FINDINGS: BONES: Normal. No fracture. JOINTS: Normal. No osteoarthritis. Ankle mortise maintained. Talar dome intact SOFT TISSUES: Normal. OTHER FINDINGS: None. IMPRESSION: Normal right ankle radiographs.
--- NOTE | 2016-08-20 11:08 | RAD ---
PROCEDURE: Right Foot Radiographs. HISTORY: pain COMPARISON: None. FINDINGS: BONES: Normal. No fracture. JOINTS: Normal. SOFT TISSUES: Normal. OTHER FINDINGS: None. IMPRESSION: Normal right foot radiographs.
--- NOTE | 2016-08-20 11:38 | CT ---
PROCEDURE: CT Chest with contrast (Pulmonary Angiogram) HISTORY: SOB sp procedure COMPARISON: None available. TECHNIQUE: Axial computed tomography images were obtained of the chest in the pulmonary arterial phase of enhancement. Coronal and sagittal reformatted images were created and reviewed. Intravenous contrast dose: 100 cc of Omnipaque Radiation dose: Total exam DLP = 552 mGy-cm. This CT exam was performed using one or more of the following dose reduction techniques: Automated exposure control, adjustment of the mA and/or kV according to patient size, and/or use of iterative reconstruction technique. FINDINGS: PULMONARY ARTERIES: Unremarkable. No pulmonary embolism. AORTA: No acute findings. No thoracic aortic aneurysm. LUNGS: Unremarkable. No nodule, mass or pulmonary consolidation. PLEURAL SPACES: Unremarkable. No effusion or pneuomothorax. HEART: Unremarkable. No cardiomegaly. No significant pericardial effusion. LYMPH NODES: No lymphadenopathy. BONES, CHEST WALL: Sternal wires OTHER FINDINGS: The report concurs with the preliminary [facility] report IMPRESSION: Unremarkable CT pulmonary angiogram. No pulmonary embolus.
[2016-08-20] MEDS: Meropenem 1g/NS 100mL IVPB 1 GM/100 ML PIGGYBACK IVPB SCH ×2 (15:34→21:48)
--- NOTE | 2016-08-20 18:49 | CON ---
DATE: 08/20/2016 The patient was seen earlier this morning in room 266, bed 1. CHIEF COMPLAINT: Sore throat and neck pain times several days. HISTORY OF PRESENT ILLNESS: This is a 40-year-old male with history of diabetes mellitus and dilated cardiomyopathy, systolic congestive heart failure with reduced ejection fraction of 15% with a histo ry of left ventricular thrombus. The patient has factor V Leiden deficiency, history of coronary art dru disease, history of coronary bypass graft, splenectomy, right femoral ORIF, who was admitted with a diagnosis of congestive heart failure. The patient was seen in the Emergency Room by ____ , s he stated in the Emergency Room chart that the patient is having shortness of breath, left lower leg pain and redness and swelling. The patient had a tonsillectomy the day before surgery, the day befor e admission. REVIEW OF SYSTEMS: Reveals the patient has difficulty swallowing, throat pain, neck pain. No chest pain, no abdominal pain, diarrhea, does have mild shortness of breath. No dysuria or frequency, no h eadaches. ALLERGIES: The patient has no known allergies. Dr. Shailesh Jose's progress note from today is reviewed. MEDICATIONS AT HOME: Reviewed. Include Coumadin, insulin and Zestril. PAST MEDICAL HISTORY: Significant for diabetes, dilated cardiomyopathy, systolic congestive heart fa ilure with reduced ejection fraction of 15%, left ventricular thrombus and factor V Leiden deficiency , coronary artery disease. PAST SURGICAL HISTORY: Significant for coronary bypass graft, splenectomy, right femoral ORIF. The patient did have a recent tonsillectomy 2 days prior to admission and the day before admission. PHYSICAL EXAMINATION: GENERAL: The patient is in bed with a significant discomfort with sore throat. VITAL SIGNS: Temperature of 99, heart rate of 77 and blood pressure is 95/50, respiratory rate of 18 . HEENT: Unable to evaluate fully. The patient is unable to open his mouth due to significant pain in the oral cavity. NECK: Tenderness. LUNGS: Decreased breath sounds. HEART: Normal S1, S2. ABDOMEN: Soft, nontender. No rebound, no guarding. EXTREMITIES: Hands and feet, there is no evidence of any infection. The left leg has mild erythema. LABORATORY EXAMINATION: Reveals a white count of 18,200, hemoglobin of 13, platelets of 313 and 74% granulocytosis. Blood gases are noted. BUN of 33, creatinine of 1.0. Urinalysis is noted. Microbi ology reveals the blood cultures are positive for a gram-negative anuja. The patient's medications are reviewed. The patient was given a dose of vancomycin and a dose of Rocephin. Also this morning we had ordered a CAT scan of the neck and the results are noted. Urinalysis is not ed. Chemistries are noted. On the CAT scan of the neck, no mention of jugular vein thrombosis; simpson rocio, small collections of air seen bilaterally and in palatine tonsils. Consultation with Dr. Milind Beaulieu is reviewed. The patient has a history of a DVT and PE. ASSESSMENT AND PLAN: This is a 40-year-old white male with diabetes mellitus, history of dilated car diomyopathy, reduced ejection fraction and systolic congestive heart failure with ejection fraction o f 15%, history of deep venous thrombosis, history of pulmonary emboli, history of left ventricular th rombus, history of factor V Leiden deficiency, history of coronary artery disease who recently had a tonsillectomy, now comes with leukocytosis and sore throat and neck pain with gram-negative anuja bacte remia. Must rule out Lemierre's syndrome, also known history as jugular vein thrombophlebitis suppur ative septic in nature and post-pharyngitis and tonsillitis and internal jugular vein thrombosis with most commonly fusobacterium bacteremia is reported to be fusobacterium necrophorum. No jugular vein thrombosis seen on CAT scan. We will discuss that with radiology. We will treat the patient with m eropenem, discontinue the Rocephin. Check on the identification and sensitivity of the gram-negative anuja. Fusobacterium do produce beta lactamases. Recommend an ENT consult and will make further dylan mmendations. Ronnie Reed MD cc: [id number] TT: 08/20/2016 18:48:09 Confirmation # [id number] Dictation # [id number] raza
[2016-08-20] MEDS: Insulin Detemir 100 units/ml Vial (Levemir) SC SCH (21:49)
[2016-08-20] MEDS ORDERED: Insulin Detemir 100 units/ml Vial (Levemir) SC SCH (22:00)
--- NOTE | 2016-08-20 22:56 | CARD ---
APPROVED REPORT EKG Measurement Heart [id number] <Conclusion> Normal sinus rhythm Possible Left atrial enlargement Left axis deviation Nonspecific T wave abnormality Prolonged QT Abnormal ECG
[2016-08-21] MEDS: Morphine 2 mg/ml ISec IVP PRN ×2 (05:13→18:47)
[2016-08-21] MEDS: Meropenem 1g/NS 100mL IVPB 1 GM/100 ML PIGGYBACK IVPB SCH ×3 (05:47→22:04)
[2016-08-21 07:29] LABS: ADD MANUAL DIFF? NO
[2016-08-21 08:01] LABS: BASO # 0.03 K/mm3 (0.0-2.0); BASO % 0.3 % (0.0-3.0); EOS # 0.1 (0.0-0.7); EOS % 0.9 % (1.5-5.0); GRAN # 6.79 (1.4-6.5); GRAN % 58.5 % (50.0-68.0); HEMATOCRIT 41.4 % (42.0-52.0); LYMPH # 2.9 (1.2-3.4); LYMPH % 24.9 % (22.0-35.0); MEAN CELL VOLUME 88.1 fL (80.0-105.0); MEAN CORPUSCULAR HEMOGLOBIN 29.1 pg (25.0-35.0); MEAN CORPUSCULAR HGB CONC 33.1 g/dl (31.0-37.0); MEAN PLATELET VOLUME 11.7 fl (7.0-11.0); MONO # 1.8 (0.1-0.6); MONO % 15.4 % (1.0-6.0); PLATELET COUNT 353 10^3/uL (120.0-450.0); RED CELL DISTRIBUTION WIDTH 14.7 % (11.5-14.5); WHITE BLOOD COUNT 11.6 10^3/ul (4.5-11.0)
[2016-08-21 08:08] LABS: INR 1.61 (0.93-1.08)
[2016-08-21 08:13] LABS: ALB/GLOB RATIO 1.8 (1.1-1.8); ALKALINE PHOSPHATASE 111 U/L (38-133); ALT/SGPT 28 U/L (7-56); AST/SGOT 14 U/L (15-59); BILIRUBIN,TOTAL 1.2 mg/dL (0.2-1.3); BLOOD UREA NITROGEN 19 mg/dL (7-21); CALCIUM 9.2 mg/dL (8.4-10.5); CARBON DIOXIDE 31 mmol/L (21-33); CHLORIDE 96 mmol/L (98-107); GFR AFRICAN-AMERICAN > 60; GLUCOSE,RANDOM 253 mg/dL (70-110); MAGNESIUM 2.1 mg/dL (1.7-2.2); PHOSPHOROUS 2.7 mg/dL (2.5-4.5); POTASSIUM 4.2 mmol/L (3.6-5.0); SODIUM 136 mmol/L (132-148); TOTAL PROTEIN 5.9 g/dL (5.8-8.3)
--- NOTE | 2016-08-21 08:29 | CP.PCM.PN ---
Subjective - Date & Time of Evaluation Date of Evaluation: 08/21/16 Time of Evaluation: 07:00 - Subjective Subjective: Stable on 2R. No CP or SOB V/S noted. RSR. 99.4 PE: Lungs: clear Cor.: S1S2 Abd.: soft Ext.: no edema Neuro.: alert Labs: WBC= 11,600, INR= 1.61, BS's 200's BC x1 + GNR Objective - Vital Signs/Intake and Output Vital Signs (last 24 hours): Temp Pulse Resp BP Pulse Ox 97.8 F 88 20 107/66 97 08/21/16 06:00 08/21/16 06:00 08/21/16 06:00 08/21/16 06:00 08/21/16 06:00 Intake and Output: 08/21/16 08/21/16 06:59 18:59 Intake Total 1340 Output Total 2 Balance 1338 - Medications Medications: Current Medications Furosemide (Lasix) 40 mg IVP Q12 [facility] Last Admin: 08/20/16 21:51 Dose: 40 mg Meropenem 1g/NS 100mL IVPB (Meropenem 1g/Ns 100ml Ivpb) 1 gm in 100 mls @ 100 mls/hr IVPB Q8 LA PRN Reason: Protocol Stop: 08/30/16 14:38 Last Admin: 08/21/16 05:47 Dose: 100 mls/hr Insulin Detemir (Levemir) 20 unit SC HS [facility] Last Admin: 08/20/16 21:49 Dose: 20 unit Insulin Human Lispro (Humalog Med) 0 units SC ACHS [facility] PRN Reason: Protocol Last Admin: 08/20/16 21:58 Dose: Not Given Insulin Lispro Protam/Lispro Human (Humalog Mix 75/25) 20 units SC ACB [facility] Last Admin: 08/20/16 09:03 Dose: 20 units Insulin Lispro Protam/Lispro Human (Humalog Mix 75/25) 10 units SC ACD [facility] Last Admin: 08/20/16 16:58 Dose: 10 unit Lidocaine HCl (Lidocaine 2% Viscous) 15 ml MM Q3H PRN PRN Reason: Pain, moderate (4-7) Last Admin: 08/20/16 18:12 Dose: 15 ml Lisinopril (Zestril) 5 mg PO DAILY [facility] Last Admin: 08/20/16 11:10 Dose: 5 mg Morphine Sulfate (Morphine) 2 mg IVP Q6 PRN PRN Reason: Pain, moderate (4-7) Last Admin: 08/21/16 05:13 Dose: 2 mg Pantoprazole Sodium (Protonix Inj) 40 mg IVP DAILY [place] Last Admin: 08/20/16 11:09 Dose: 40 mg Warfarin Sodium (Coumadin) 7.5 mg PO 1800 LA PRN Reason: Protocol Last Admin: 08/20/16 19:04 Dose: 7.5 mg - Labs Labs: 08/21/16 07:00 08/20/16 06:30 PT 17.4 Seconds (9.9-11.8) H 08/21/16 07:00 INR 1.61 (0.93-1.08) H 08/21/16 07:00 APTT 32.4 Seconds (23.7-30.8) H 08/19/16 17:50 Assessment and Plan - Assessment and Plan (Free Text) Assessment: Fever, Chills, sore throat, body aches, leg pains S/P tonsillectomy 08/18 BC + GNR CMP CHF Factor V Leiden deficiency DVT/IVC Filter/PE with surgical PA thrombectomy HBP S/P Splenectomy H/O rght knee hemarthrosis Psoriasis H/O Drug Misuse S/P femur fracture ED/Penile implant Plan: As per ID, AB Continue IV Lasix Check echo As per ENT and Hospitalists Add carvedilol 3.25 BID Needs EP evaluation for ICD once infection issues are resolved. Monitor: I/O, labs, cultures, INR's, sats., etc
[2016-08-21] MEDS: Insulin Lispro (humaLOG) MEDIUM Coverage SC SCH ×4 (09:19→21:58)
[2016-08-21] MEDS: Insulin Lispro (humaLOG) MIX 75/25(10 ml) SC SCH ×2 (09:29→18:47)
[2016-08-21] MEDS ORDERED: Enoxaparin 80 mg Syringe SC SCH (11:00)
--- NOTE | 2016-08-21 11:37 | PN ---
DATE: 08/21/2016 The patient seen earlier this morning in room 266, bed 1. He states that his throat is somewhat impr fela, less painful. The neck pain in the neck is less. He is able to swallow. He has no fevers. H vera is tolerating the antibiotics. PHYSICAL EXAMINATION: VITAL SIGNS: Temperature is 97, blood pressure is 107/60, respiratory rate of 20. HEENT: Unremarkable. NECK: Still tenderness. LUNGS: Have decreased breath sounds. HEART: Normal S1, S2. ABDOMEN: Soft. LABORATORY EXAMINATION: Reveals the white count is down from 18,000 to 11,600 and hemoglobin of 13 a nd platelets of 353. Chemistries reveals the BUN of 19, creatinine of 0.8. The patient's procalcito ramos is 1.9. Urinalysis is noted. Microbiology reveals gram-negative anuja in both blood cultures, aer obic and anaerobic bottles are positive. Urine culture is negative. Dr. Beaulieu's progress note is reviewed. Dr. Hutchinson's note is reviewed from yesterday. ASSESSMENT AND PLAN: A 40-year-old male with diabetes mellitus, history of dilated cardiomyopathy, r educed ejection fraction, systolic congestive heart failure, ejection fraction of 15%, history of fransico p venous thrombosis, a history of pulmonary emboli, history of left ventricular thrombus, history of factor V Leiden deficiency and history of coronary artery disease who has had recently a tonsillectom y who comes with leukocytosis and a heart rate of 93 yesterday with positive blood cultures and with sepsis with gram-negative anuja bacteremia, must rule out fusobacterium Lemierre syndrome. CAT scan of the neck did not show any jugular venous thrombophlebitis, although no mention of it, should have Dr Courtney Garcia review the CAT scan of the head looking forward jugular venous thrombophlebitis and we will wait for the identification of the gram-negative anuja in the blood and will continue the meropenem. T here appears to be no gastrointestinal symptoms. However, we will order a CAT scan of the abdomen ju st to be complete for gram-negative anuja bacteremia and sepsis with a negative urinalysis. Still the fusobacterium is an anaerobic gram-negative anuja. We will follow closely with you, pending identifica tion of gram-negative anuja in the blood. Ronnie Reed MD cc: [id number] TT: 08/21/2016 11:36:59 Confirmation # [id number] Dictation # [id number]
--- NOTE | 2016-08-21 12:20 | CP.PCM.PN ---
<Bharath Jasso - Last Filed: 08/21/16 12:17> Subjective - Date & Time of Evaluation Date of Evaluation: 08/21/16 Time of Evaluation: 07:40 - Subjective Subjective: Medicine progress note: Pt seen and examined at bedside. No acute events overnight. Pt c/o of R foot pain. He also c/o of pain in his post pharynx and neck. Denies any herman, dizziness , f/c, sob, cp, abd pain, n/v/d. Objective - Vital Signs/Intake and Output Vital Signs (last 24 hours): Temp Pulse Resp BP Pulse Ox 97.8 F 73 20 107/67 97 08/21/16 06:00 08/21/16 10:40 08/21/16 06:00 08/21/16 10:40 08/21/16 06:00 Intake and Output: 08/21/16 08/21/16 06:59 18:59 Intake Total 1340 Output Total 2 Balance 1338 - Medications Medications: Current Medications Carvedilol (Coreg) 3.125 mg PO BID [facility] Last Admin: 08/21/16 10:40 Dose: 3.125 mg Enoxaparin Sodium (Lovenox) 80 mg SC Q12H [place] PRN Reason: Protocol Last Admin: 08/21/16 11:21 Dose: 80 mg Furosemide (Lasix) 40 mg IVP Q12 [place] Last Admin: 08/21/16 10:39 Dose: 40 mg Meropenem 1g/NS 100mL IVPB (Meropenem 1g/Ns 100ml Ivpb) 1 gm in 100 mls @ 100 mls/hr IVPB Q8 [place] PRN Reason: Protocol Stop: 08/30/16 14:38 Last Admin: 08/21/16 05:47 Dose: 100 mls/hr Insulin Detemir (Levemir) 20 unit SC HS [place] Last Admin: 08/20/16 21:49 Dose: 20 unit Insulin Human Lispro (Humalog Med) 0 units SC ACHS [place] PRN Reason: Protocol Last Admin: 08/21/16 09:19 Dose: 3 units Insulin Lispro Protam/Lispro Human (Humalog Mix 75/25) 20 units SC ACB [facility] Last Admin: 08/21/16 09:29 Dose: 20 units Insulin Lispro Protam/Lispro Human (Humalog Mix 75/25) 10 units SC ACD [facility] Last Admin: 08/20/16 16:58 Dose: 10 unit Lidocaine HCl (Lidocaine 2% Viscous) 15 ml MM Q3H PRN PRN Reason: Pain, moderate (4-7) Last Admin: 08/20/16 18:12 Dose: 15 ml Lisinopril (Zestril) 5 mg PO DAILY [facility] Last Admin: 08/21/16 10:39 Dose: 5 mg Morphine Sulfate (Morphine) 2 mg IVP Q6 PRN PRN Reason: Pain, moderate (4-7) Last Admin: 08/21/16 05:13 Dose: 2 mg Pantoprazole Sodium (Protonix Inj) 40 mg IVP DAILY [facility] Last Admin: 08/21/16 10:38 Dose: 40 mg Warfarin Sodium (Coumadin) 7.5 mg PO 1800 [facility] PRN Reason: Protocol Last Admin: 08/20/16 19:04 Dose: 7.5 mg - Labs Labs: 08/21/16 07:00 08/21/16 07:00 PT 17.4 Seconds (9.9-11.8) H 08/21/16 07:00 INR 1.61 (0.93-1.08) H 08/21/16 07:00 APTT 32.4 Seconds (23.7-30.8) H 08/19/16 17:50 - Constitutional Appears: No Acute Distress - Head Exam Head Exam: ATRAUMATIC, NORMAL INSPECTION, NORMOCEPHALIC - Eye Exam Eye Exam: EOMI, Normal appearance, PERRL Pupil Exam: NORMAL ACCOMODATION, PERRL - ENT Exam ENT Exam: Mucous Membranes Moist, Normal Exam - Neck Exam Neck Exam: Full ROM, Normal Inspection. absent: Lymphadenopathy - Respiratory Exam Respiratory Exam: Clear to Ausculation Bilateral, Rhonchi (b/l lung glover ), NORMAL BREATHING PATTERN. absent: Wheezes - Cardiovascular Exam Cardiovascular Exam: REGULAR RHYTHM, RRR, +S1, +S2. absent: Murmur - GI/Abdominal Exam GI & Abdominal Exam: Soft, Normal Bowel Sounds. absent: Distended, Tenderness - Extremities Exam Extremities Exam: Full ROM, Normal Capillary Refill, Normal Inspection, Tenderness. absent: Joint Swelling, Pedal Edema Additional comments: R foot and ankle, limited ROM - Back Exam Back Exam: NORMAL INSPECTION - Neurological Exam Neurological Exam: Alert, Awake, CN II-XII Intact, Normal Gait, Oriented x3 - Psychiatric Exam Psychiatric exam: Normal Affect, Normal Mood - Skin Skin Exam: Dry, Intact, Normal Color, Warm Assessment and Plan - Assessment and Plan (Free Text) Assessment: This is a 40 yo male with past medical history of CHF (LVEF 10-15%), DVT s/p IVC filter placement, factor v leidin mutation, psoriasis presents c/o fever, chills, headache, SOB and bodyaches s/p tonsillectomy. 1. CHF exacerbation - Ronchi on b/l lung glover - F/u CXR, sputum cx -LVEF ~10-15% on echocardiogram from 2016; see full report -BNP 2180 -Troponin negative x 3 -Echocardiogram pending -B/L venous duplex negative for DVT -CXR revealed vascular congestion; no apparent infiltrates; cardiomegaly -CT angio revealed no dissection or acute process in the lungs; small focal questionable filling defect of one of the segments of the left base, which may represent old PE, artifact, however a small acute PE in the area cannot be excluded but is felt to be less likely; see full report - Lasix 40mg IVP q12h -Continue home lisinopril 5mg po qd -Strict I's and O's; Daily weight; HOB > 45', O2 supplementation -Cardiology consulted - Dr. Beaulieu - Coreg started 2. Hx Tonsillectomy 3 days ago - Pain in post pharynx and neck - CT neck - small collection of air seen b the palatine tonsils and adjacent pharyngeal space - Gram neg rods in blood - ID consulted for recs - Cont Rory r/o Lemierre dx, and ordered CT abd/pelvis - f/u CT abd pelvis 3. Diabetes mellitus -Patient started on Humalog 75/25 20U ACB and 10U ACD -Levemir 20U HS -Humalog ISS medium dose -Fingersticks ACHS -Consistent carb/heart healthy diet 4. History of DVT -Subtherapeutic INR 1.61; patient had his warfarin held prior to tonsillectomy -Continue warfarin 7.5 mg PO daily - Started Lovenox 80mg BID unitl INR therapeutic -Repeat INR in AM 5. LLE cellulitis -leukocytosis 11.6, afebrile -Started on rocephin 1gm IV -ID consulted -morphine for pain 6. Pain in right foot -xrays negative 7. GI/DVT prophylaxis -Protonix/warfarin Case and plan was seen, reviewed and discussed in detail with Dr Last. <Prashanth Last - Last Filed: 08/21/16 13:31> Objective - Vital Signs/Intake and Output Vital Signs (last 24 hours): Temp Pulse Resp BP Pulse Ox 97.3 F L 82 20 109/72 97 08/21/16 12:00 08/21/16 12:00 08/21/16 12:00 08/21/16 12:00 08/21/16 06:00 Intake and Output: 08/21/16 08/21/16 06:59 18:59 Intake Total 1340 Output Total 2 Balance 1338 - Medications Medications: Current Medications Albuterol/Ipratropium (Duoneb 3 Mg/0.5 Mg (3 Ml) Ud) 3 ml IH [id number] [facility] Carvedilol (Coreg) 3.125 mg PO BID [facility] Last Admin: 08/21/16 10:40 Dose: 3.125 mg Enoxaparin Sodium (Lovenox) 80 mg SC DAILY [facility] PRN Reason: Protocol Furosemide (Lasix) 40 mg IVP Q12 [facility] Last Admin: 08/21/16 10:39 Dose: 40 mg Meropenem 1g/NS 100mL IVPB (Meropenem 1g/Ns 100ml Ivpb) 1 gm in 100 mls @ 100 mls/hr IVPB Q8 [place] PRN Reason: Protocol Stop: 08/30/16 14:38 Last Admin: 08/21/16 05:47 Dose: 100 mls/hr Insulin Detemir (Levemir) 20 unit SC HS [facility] Last Admin: 08/20/16 21:49 Dose: 20 unit Insulin Human Lispro (Humalog Med) 0 units SC ACHS [facility] PRN Reason: Protocol Last Admin: 08/21/16 12:31 Dose: 5 units Insulin Lispro Protam/Lispro Human (Humalog Mix 75/25) 20 units SC ACB [facility] Last Admin: 08/21/16 09:29 Dose: 20 units Insulin Lispro Protam/Lispro Human (Humalog Mix 75/25) 10 units SC ACD [facility] Last Admin: 08/20/16 16:58 Dose: 10 unit Lidocaine HCl (Lidocaine 2% Viscous) 15 ml MM Q3H PRN PRN Reason: Pain, moderate (4-7) Last Admin: 08/20/16 18:12 Dose: 15 ml Lisinopril (Zestril) 5 mg PO DAILY [facility] Last Admin: 08/21/16 10:39 Dose: 5 mg Morphine Sulfate (Morphine) 2 mg IVP Q6 PRN PRN Reason: Pain, moderate (4-7) Last Admin: 08/21/16 05:13 Dose: 2 mg Pantoprazole Sodium (Protonix Inj) 40 mg IVP DAILY [facility] Last Admin: 08/21/16 10:38 Dose: 40 mg Warfarin Sodium (Coumadin) 7.5 mg PO 1800 [place] PRN Reason: Protocol Last Admin: 08/20/16 19:04 Dose: 7.5 mg - Labs Labs: 08/21/16 07:00 08/21/16 07:00 PT 17.4 Seconds (9.9-11.8) H 08/21/16 07:00 INR 1.61 (0.93-1.08) H 08/21/16 07:00 APTT 32.4 Seconds (23.7-30.8) H 08/19/16 17:50 Attending/Attestation - Attestation I have personally seen and examined this patient.: Yes I have fully participated in the care of the patient.: Yes I have reviewed all pertinent clinical information, including history, physical exam and plan: Yes Notes (Text): This is a 40 yo male with past medical history of CHF (LVEF 10-15%), DVT s/p IVC filter placement, factor v leidin mutation, psoriasis presents c/o fever, chills, headache, SOB and bodyaches s/p tonsillectomy. Hx Tonsillectomy 3 days ago POSSIBLE post op infection CT neck - small collection of air seen b the palatine tonsils and adjacent pharyngeal space Gram neg rods in blood Diabetes mellitus CHF not acute chronic systolic DVT- subtherpeutic started lovenox
[2016-08-21] MEDS ORDERED: Iohexol 240 (50 ml) ONE (12:44)
[2016-08-21] MEDS: Albuterol-Ipratrop 3 mg / 0.5 (3 ml) UD IH SCH ×2 (15:41→19:38)
--- NOTE | 2016-08-21 20:54 | CON ---
DATE: 08/21/2016 EAR, NOSE AND THROAT SERVICE CONSULTATION REASON FOR CONSULTATION: Status post tonsillectomy. HISTORY OF PRESENT ILLNESS: The patient is a 40-year-old male with an extensive past medical history including CHF with an ejection fraction of 10%, diabetes, DVT secondary to hypercoagulability, facto r V Leiden deficiency on Coumadin at home, and psoriasis as well as past alcohol and amphetamine abus e. The patient underwent uncomplicated tonsillectomy for chronic tonsillitis with Dr. Alfonso at [facility] on 08/16/2016. Subsequently, he presented to [facility] after discharge d from [facility] [place] [place] with complaints of not feeling right, as well as fevers at home. He was f ound to have elevated BNP as well as elevated white blood cell count. Therefore, he is admitted on I V antibiotics and treated with Lasix. He also underwent a CAT scan of the neck, which showed small g as foci in the palatine tonsil and parapharyngeal space. Therefore, ear, nose and throat service was consulted for further evaluation. Of note, since admission, the patient reports he is doing and fee ling much better. He denies any chest pain, denies any shortness of breath. Does have some pain wit h swallowing, but is currently tolerating a clear liquid and soft diet as expected post-tonsillectomy . He denies any pain with moving his neck. He denies subjective fevers or chills and otherwise has no other ear, nose and throat complaints at this time. PAST MEDICAL HISTORY: As above. SOCIAL HISTORY: As above. HOME MEDICATIONS: Include Coumadin, Lasix, lisinopril, Humalog. PHYSICAL EXAMINATION: VITAL SIGNS: Blood pressure 107/67, pulse 73, temperature 97.8, saturating 97% on room air. GENERAL: The patient is awake and alert, oriented x 3, normal quality of voice. No stridor. HEAD: Normocephalic, atraumatic. EARS: External auricles without mass or lesions. NOSE: Nares patent bilaterally, no purulence or discharge noted. ORAL CAVITY AND OROPHARYNX: Moist mucous membranes. Tongue mobile and midline. Tonsillar fossa wit h eschar and typical post-tonsillectomy changes. No bleeding or clots noted. No concerning erythema surrounding the eschar. Uvula midline without edema. NECK: No crepitus palpable in neck. Full range of motion to the neck in extension, flexion and side bending and rotation. No tenderness to palpation of the neck. Trachea midline. There is no strido r. CHEST: Clear to auscultation. LABORATORY DATA: White blood cell count 11.6 down trending from 18.2 on admission. Blood cultures a re positive for gram-negative rods. Of note, the patient is currently on meropenem as an inpatient. ASSESSMENT AND PLAN: The patient is a 40-year-old male status post tonsillectomy. CT scan likely represents normal postsurgical changes to the tonsillar fossa. The patient is not dis playing any signs or symptoms of a gas-forming infection in his neck. He has no crepitus. He has go t no tenderness to pain in his neck. He is currently afebrile and white blood cell count is down jeaneth nding. Recommend patient be discharged home on a course of antibiotics and to follow up with his [facility] surgeon, Dr. Alfonso. Also recommend he follow up with Dr. Alfonso and his rubber tester prior to rebeginning his anticoagulation as the patient has high risk of bleeding, status post tonsillectomy. This was discussed with the patient with his nurse. Thank you for allowing us to participate in this patient's care. Deon Garcia DO cc: [id number] TT: 08/21/2016 20:53:28 Confirmation # [id number] Dictation # [id number]
[2016-08-21] MEDS: Insulin Detemir 100 units/ml Vial (Levemir) SC SCH (21:58)
[2016-08-22] MEDS: Albuterol-Ipratrop 3 mg / 0.5 (3 ml) UD IH SCH ×6 (00:04→19:43)
[2016-08-22] MEDS: Morphine 2 mg/ml ISec IVP PRN ×4 (02:40→22:43)
[2016-08-22] MEDS: Meropenem 1g/NS 100mL IVPB 1 GM/100 ML PIGGYBACK IVPB SCH ×3 (05:04→22:02)
[2016-08-22 06:41] VITALS: O2SAT 98
[2016-08-22 06:50] LABS: INR 1.87 (0.93-1.08)
[2016-08-22] MEDS: Insulin Lispro (humaLOG) MEDIUM Coverage SC SCH ×4 (08:07→22:02)
[2016-08-22] MEDS: Insulin Lispro (humaLOG) MIX 75/25(10 ml) SC SCH ×2 (08:08→16:35)
--- NOTE | 2016-08-22 08:30 | CT ---
PROCEDURE: CT Abdomen and Pelvis without intravenous contrast HISTORY: gram neg anuja in blood COMPARISON: 11/30/14. TECHNIQUE: Technique. Contrast Dose: Radiation dose: Total exam DLP = 532 mGy-cm. This CT exam was performed using one or more of the following dose reduction techniques: Automated exposure control, adjustment of the mA and/or kV according to patient size, and/or use of iterative reconstruction technique. FINDINGS: LOWER THORAX: Unremarkable. LIVER: Unremarkable. No gross lesion or ductal dilatation. GALLBLADDER AND BILE DUCTS: Cholelithiasis. PANCREAS: Unremarkable. No gross lesion or ductal dilatation. SPLEEN: Unremarkable. ADRENALS: Unremarkable. No mass. KIDNEYS AND URETERS: Bilateral renal cysts and areas of renal scarring, unchanged. New intra cortical calcifications are observed. No hydronephrosis. No solid mass. VASCULATURE: Inferior vena cava filter in place. No aneurysm of the aorta. BOWEL: Unremarkable. No obstruction. No gross mural thickening. APPENDIX: Unremarkable. Normal appendix. PERITONEUM: Unremarkable. No free fluid. No free air. LYMPH NODES: Unremarkable. No enlarged lymph nodes. BLADDER: Unremarkable. REPRODUCTIVE: Unremarkable. BONES: No acute fracture. OTHER FINDINGS: None. IMPRESSION: Areas of bilateral renal scar formation with cysts and complex cysts suggested with new intra cortical calcification in the left kidney. Recommend correlation with either renal ultrasound or contrast-enhanced CT scan. Cholelithiasis.
--- NOTE | 2016-08-22 09:09 | CP.PCM.PN ---
Subjective - Date & Time of Evaluation Date of Evaluation: 08/22/16 Time of Evaluation: 07:00 - Subjective Subjective: Stable on 2R. No CP or SOB V/S noted. RSR. PE: Lungs: clear Cor.: S1S2 Abd.: soft Ext.: no edema Neuro.: alert Labs: INR= 1.87 BC x2 + GNR CXR 08/21: not read yet. Clear lungs by my interpretation Objective - Vital Signs/Intake and Output Vital Signs (last 24 hours): Temp Pulse Resp BP Pulse Ox 97.2 F L 76 18 92/51 L 98 08/22/16 06:00 08/22/16 06:00 08/22/16 06:00 08/22/16 06:00 08/22/16 06:00 Intake and Output: 08/22/16 08/22/16 06:59 18:59 Intake Total 1320 Balance 1320 - Medications Medications: Current Medications Albuterol/Ipratropium (Duoneb 3 Mg/0.5 Mg (3 Ml) Ud) 3 ml IH [id number] [facility] Last Admin: 08/22/16 08:02 Dose: 3 ml Carvedilol (Coreg) 3.125 mg PO BID [facility] Last Admin: 08/21/16 18:33 Dose: Not Given Enoxaparin Sodium (Lovenox) 80 mg SC DAILY [facility] PRN Reason: Protocol Furosemide (Lasix) 40 mg IVP Q12 [facility] Last Admin: 08/21/16 21:58 Dose: 40 mg Meropenem 1g/NS 100mL IVPB (Meropenem 1g/Ns 100ml Ivpb) 1 gm in 100 mls @ 100 mls/hr IVPB Q8 [place] PRN Reason: Protocol Stop: 08/30/16 14:38 Last Admin: 08/22/16 05:04 Dose: 100 mls/hr Insulin Detemir (Levemir) 20 unit SC HS [place] Last Admin: 08/21/16 21:58 Dose: 20 unit Insulin Human Lispro (Humalog Med) 0 units SC ACHS [place] PRN Reason: Protocol Last Admin: 08/22/16 08:07 Dose: 5 units Insulin Lispro Protam/Lispro Human (Humalog Mix 75/25) 20 units SC ACB [facility] Last Admin: 08/22/16 08:08 Dose: 20 units Insulin Lispro Protam/Lispro Human (Humalog Mix 75/25) 10 units SC ACD [facility] Last Admin: 08/21/16 18:47 Dose: 10 unit Lidocaine HCl (Lidocaine 2% Viscous) 15 ml MM Q3H PRN PRN Reason: Pain, moderate (4-7) Last Admin: 08/21/16 22:05 Dose: 15 ml Lisinopril (Zestril) 5 mg PO DAILY [facility] Last Admin: 08/21/16 10:39 Dose: 5 mg Morphine Sulfate (Morphine) 2 mg IVP Q6 PRN PRN Reason: Pain, moderate (4-7) Last Admin: 08/22/16 08:46 Dose: 2 mg Pantoprazole Sodium (Protonix Inj) 40 mg IVP DAILY [facility] Last Admin: 08/21/16 10:38 Dose: 40 mg Warfarin Sodium (Coumadin) 7.5 mg PO 1800 [place] PRN Reason: Protocol Last Admin: 08/21/16 18:46 Dose: 7.5 mg - Labs Labs: 08/21/16 07:00 08/21/16 07:00 PT 20.2 Seconds (9.9-11.8) H 08/22/16 05:10 INR 1.87 (0.93-1.08) H 08/22/16 05:10 APTT 32.4 Seconds (23.7-30.8) H 08/19/16 17:50 Assessment and Plan - Assessment and Plan (Free Text) Assessment: Fever, Chills, sore throat, body aches, leg pains S/P tonsillectomy 08/18 BCs + GNR CMP CHF Factor V Leiden deficiency DVT/IVC Filter/PE with surgical PA thrombectomy HBP S/P Splenectomy H/O rght knee hemarthrosis Psoriasis H/O Drug Misuse S/P femur fracture ED/Penile implant Plan: As per ID, AB PO Lasix Check echo As per ENT and Hospitalists: D/W ENT A/C with warfarin at this time. Hold Lovenox. Continue Carvedilol 3.25 BID Needs EP evaluation for ICD once infection issues are resolved. To be arranged through his site medical director. Monitor: I/O, labs, cultures, INR's, sats., etc
[2016-08-22 09:20] LABS: BASO # 0.06 K/mm3 (0.0-2.0); BASO % 0.6 % (0.0-3.0); EOS # 0.2 (0.0-0.7); EOS % 1.5 % (1.5-5.0); GRAN % 54.2 % (50.0-68.0); HEMATOCRIT 41.9 % (42.0-52.0); LYMPH # 2.7 (1.2-3.4); LYMPH % 27.3 % (22.0-35.0); MEAN CELL VOLUME 87.7 fL (80.0-105.0); MEAN CORPUSCULAR HEMOGLOBIN 29.3 pg (25.0-35.0); MEAN CORPUSCULAR HGB CONC 33.4 g/dl (31.0-37.0); MEAN PLATELET VOLUME 11.9 fl (7.0-11.0); MONO # 1.6 (0.1-0.6); MONO % 16.4 % (1.0-6.0); PLATELET COUNT 349 10^3/uL (120.0-450.0); RED CELL DISTRIBUTION WIDTH 14.3 % (11.5-14.5); WHITE BLOOD COUNT 9.8 10^3/ul (4.5-11.0)
[2016-08-22 09:21] LABS: ADD MANUAL DIFF? NO
[2016-08-22 09:28] LABS: ALB/GLOB RATIO 1.6 (1.1-1.8); ALKALINE PHOSPHATASE 117 U/L (38-133); ALT/SGPT 25 U/L (7-56); AST/SGOT 18 U/L (15-59); BLOOD UREA NITROGEN 16 mg/dL (7-21); CALCIUM 9.1 mg/dL (8.4-10.5); CARBON DIOXIDE 28 mmol/L (21-33); GFR AFRICAN-AMERICAN > 60; GLUCOSE,RANDOM 260 mg/dL (70-110); PHOSPHOROUS 3.2 mg/dL (2.5-4.5); POTASSIUM 4.4 mmol/L (3.6-5.0); SODIUM 135 mmol/L (132-148); TOTAL PROTEIN 5.7 g/dL (5.8-8.3)
[2016-08-22 09:30] LABS: CHLORIDE 96 mmol/L (98-107)
--- NOTE | 2016-08-22 09:51 | RAD ---
PROCEDURE: CHEST RADIOGRAPH, 1 VIEW HISTORY: Ronchi on exam COMPARISON: 08/19/2016 FINDINGS: LUNGS: Clear. PLEURA: No pneumothorax or pleural fluid seen. CARDIOVASCULAR: Mild cardiomegaly OSSEOUS STRUCTURES: Sternal wires VISUALIZED UPPER ABDOMEN: Normal. OTHER FINDINGS: None. IMPRESSION: No active disease.
[2016-08-22] MEDS ORDERED: Enoxaparin 80 mg Syringe SC SCH (10:00)
--- NOTE | 2016-08-22 13:30 | CP.PCM.PN ---
<Damián Barrett - Last Filed: 08/22/16 13:30> Subjective - Date & Time of Evaluation Date of Evaluation: 08/22/16 Time of Evaluation: 13:30 - Subjective Subjective: Med progress note. Attending: Dr. Gibbs Pt seen and examined at bedside. No acute distress. Pt is complaining of right foot pain, x rays negative. No fevers, chills, vomiting, diarrhea. Objective - Vital Signs/Intake and Output Vital Signs (last 24 hours): Temp Pulse Resp BP Pulse Ox 97.2 F L 80 18 119/82 98 08/22/16 06:00 08/22/16 09:15 08/22/16 06:00 08/22/16 09:15 08/22/16 06:00 Intake and Output: 08/22/16 08/22/16 06:59 18:59 Intake Total 1320 Balance 1320 - Medications Medications: Current Medications Albuterol/Ipratropium (Duoneb 3 Mg/0.5 Mg (3 Ml) Ud) 3 ml IH [id number] [facility] Last Admin: 08/22/16 11:35 Dose: Not Given Carvedilol (Coreg) 3.125 mg PO BID [facility] Last Admin: 08/22/16 09:15 Dose: 3.125 mg Enoxaparin Sodium (Lovenox) 80 mg SC DAILY [facility] PRN Reason: Protocol Furosemide (Lasix) 40 mg PO DAILY [facility] Last Admin: 08/22/16 09:14 Dose: 40 mg Meropenem 1g/NS 100mL IVPB (Meropenem 1g/Ns 100ml Ivpb) 1 gm in 100 mls @ 100 mls/hr IVPB Q8 [place] PRN Reason: Protocol Stop: 08/30/16 14:38 Last Admin: 08/22/16 05:04 Dose: 100 mls/hr Insulin Detemir (Levemir) 20 unit SC HS [facility] Last Admin: 08/21/16 21:58 Dose: 20 unit Insulin Human Lispro (Humalog Med) 0 units SC ACHS [facility] PRN Reason: Protocol Last Admin: 08/22/16 12:46 Dose: 3 units Insulin Lispro Protam/Lispro Human (Humalog Mix 75/25) 20 units SC ACB [facility] Last Admin: 08/22/16 08:08 Dose: 20 units Insulin Lispro Protam/Lispro Human (Humalog Mix 75/25) 10 units SC ACD [facility] Last Admin: 08/21/16 18:47 Dose: 10 unit Lidocaine HCl (Lidocaine 2% Viscous) 15 ml MM Q3H PRN PRN Reason: Pain, moderate (4-7) Last Admin: 08/21/16 22:05 Dose: 15 ml Lisinopril (Zestril) 5 mg PO DAILY [facility] Last Admin: 08/22/16 09:14 Dose: 5 mg Morphine Sulfate (Morphine) 2 mg IVP Q6 PRN PRN Reason: Pain, moderate (4-7) Last Admin: 08/22/16 08:46 Dose: 2 mg Pantoprazole Sodium (Protonix Inj) 40 mg IVP DAILY [facility] Last Admin: 08/22/16 09:15 Dose: 40 mg Warfarin Sodium (Coumadin) 7.5 mg PO 1800 [facility] PRN Reason: Protocol Last Admin: 08/21/16 18:46 Dose: 7.5 mg - Labs Labs: 08/22/16 09:00 08/22/16 09:00 PT 20.2 Seconds (9.9-11.8) H 08/22/16 05:10 INR 1.87 (0.93-1.08) H 08/22/16 05:10 APTT 32.4 Seconds (23.7-30.8) H 08/19/16 17:50 - Constitutional Appears: Non-toxic, No Acute Distress - Head Exam Head Exam: ATRAUMATIC, NORMAL INSPECTION, NORMOCEPHALIC - Eye Exam Eye Exam: EOMI - ENT Exam ENT Exam: Mucous Membranes Moist - Neck Exam Neck Exam: Full ROM, Normal Inspection - Respiratory Exam Respiratory Exam: Rales. absent: Respiratory Distress - Cardiovascular Exam Cardiovascular Exam: +S1, +S2 - GI/Abdominal Exam GI & Abdominal Exam: Soft, Normal Bowel Sounds. absent: Tenderness - Extremities Exam Extremities Exam: Full ROM, Normal Inspection - Neurological Exam Neurological Exam: Alert, Awake, Oriented x3 - Psychiatric Exam Psychiatric exam: Flat Affect - Skin Skin Exam: Dry, Intact, Normal Color, Warm Assessment and Plan - Assessment and Plan (Free Text) Assessment: This is a 40 yo male with past medical history of CHF (LVEF 10-15%), DVT s/p IVC filter placement, factor v leiden mutation, psoriasis presents c/o fever, chills, headache, SOB and bodyaches s/p tonsillectomy. 1. CHF exacerbation - F/u sputum cultures -LVEF ~10-15% on echocardiogram from 2016; see full report -BNP 2180 -Troponin negative x 3 -Echocardiogram pending -B/L venous duplex negative for DVT -CXR revealed vascular congestion; no apparent infiltrates; cardiomegaly -CT angio revealed no dissection or acute process in the lungs; small focal questionable filling defect of one of the segments of the left base, which may represent old PE, artifact, however a small acute PE in the area cannot be excluded but is felt to be less likely; see full report - Lasix 40mg IVP q12h -Continue home lisinopril 5mg po qd -Strict I's and O's; Daily weight; HOB > 45', O2 supplementation -Cardiology consulted - Dr. Beaulieu -continue coreg BID 2. Hx Tonsillectomy 3 days ago - Pain in post pharynx and neck - CT neck - small collection of air seen b the palatine tonsils and adjacent pharyngeal space - Gram neg rods in blood - ID consulted for recs - Cont Rory r/o Lemierre dx, and ordered CT abd/pelvis - f/u CT abd pelvis >> shows b/l renal scars, along with renal cysts, please see full report 3. Diabetes mellitus -Patient started on Humalog 75/25 20U ACB and 10U ACD -Levemir 20U HS -Humalog ISS medium dose -Fingersticks ACHS -Consistent carb/heart healthy diet 4. History of DVT -Continue warfarin 7.5 mg PO daily -lovenox 40 q 12 -Repeat INR in AM 5. LLE cellulitis -pt has been afebrile -Started on rocephin 1gm IV>> now on meropenem IV -ID consulted -morphine for pain 6. Pain in right foot -xrays negative -will order uric acid level 7. GI/DVT prophylaxis -Protonix/warfarin discussed with Dr. Gibbs <Bernie FLOREZ,Yury - Last Filed: 08/23/16 16:32> Objective - Vital Signs/Intake and Output Vital Signs (last 24 hours): Temp Pulse Resp BP Pulse Ox 97.7 F 85 20 100/66 98 08/23/16 12:00 08/23/16 14:00 08/23/16 12:00 08/23/16 12:01 08/23/16 06:00 Intake and Output: 08/23/16 08/23/16 06:59 18:59 Intake Total 460 360 Balance 460 360 - Labs Labs: 08/23/16 06:05 08/23/16 06:05 PT 22.8 Seconds (9.9-11.8) H 08/23/16 08:00 INR 2.11 (0.93-1.08) H 08/23/16 08:00 APTT 36.2 Seconds (23.7-30.8) H 08/23/16 08:00 Attending/Attestation - Attestation I have personally seen and examined this patient.: Yes I have fully participated in the care of the patient.: Yes I have reviewed all pertinent clinical information, including history, physical exam and plan: Yes Notes (Text): 08/23/16 16:27 Patient was seen and examined with electromedical equipment technician .Agreed with resident assessment and plan. 40 yo male with past medical history of CHF (LVEF 10-15%), DVT s/p IVC filter placement, factor v leiden mutation, psoriasis presents c/o fever, chills, headache, SOB and bodyaches s/p tonsillectomy, grew gram negative anuja in blood, Patient is on IV meropennem, will follow up identification and sensitivity of bacteria.Patient was c/o ankle pain, X ray is negative for any acute pathology.Patient is Euvolemic. Management plan was discussed in detail with patient Education was provided. .
--- NOTE | 2016-08-22 15:34 | PN ---
DATE: 08/22/2016 The patient is in bed, in no acute distress, nontoxic. PHYSICAL EXAMINATION: VITAL SIGNS: Temperature is 98, blood pressure is 119/80, respiratory rate of 18. HEENT: Unremarkable. NECK: Supple. LUNGS: Have decreased breath sounds. HEART: Normal S1, S2. ABDOMEN: Soft. LABORATORY EXAMINATION: Reveals a white count of 9.8, hemoglobin of 14, platelets of 349. BUN of 16 , creatinine of 0.9. Microbiology reveals pansensitive Klebsiella pneumoniae in both blood cultures. CAT scan of the abdomen and pelvis is noted, there is cholelithiasis. Dr. Milind Beaulieu's note is rev iewed. Dr. Chavarria note is reviewed. 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 Would advise this patient to have p.o. Augmentin in hand in case he develops fever to start empiric a ntibiotics after this episode is resolved. May switch to p.o. Cipro and p.o. Flagyl x 7-10 days. Ronnie Reed MD cc: 350 TT: 08/22/2016 15:34:08 Confirmation # [id number] Dictation # [id number]
[2016-08-22] MEDS: Insulin Detemir 100 units/ml Vial (Levemir) SC SCH (23:48)
[2016-08-23] MEDS: Albuterol-Ipratrop 3 mg / 0.5 (3 ml) UD IH SCH ×4 (00:25→11:35)
[2016-08-23] MEDS: Morphine 2 mg/ml ISec IVP PRN ×2 (05:04→12:05)
[2016-08-23] MEDS: Meropenem 1g/NS 100mL IVPB 1 GM/100 ML PIGGYBACK IVPB SCH (05:05)
[2016-08-23] MEDS ORDERED: Pantoprazole 40 mg EC Tab PO SCH (06:00)
[2016-08-23 06:07] LABS: ADD MANUAL DIFF? NO
[2016-08-23 06:12] LABS: BASO # 0.05 K/mm3 (0.0-2.0); BASO % 0.5 % (0.0-3.0); EOS # 0.2 (0.0-0.7); EOS % 1.6 % (1.5-5.0); GRAN # 5.97 (1.4-6.5); GRAN % 57.3 % (50.0-68.0); HEMATOCRIT 39.3 % (42.0-52.0); LYMPH # 2.8 (1.2-3.4); LYMPH % 26.9 % (22.0-35.0); MEAN CELL VOLUME 87.5 fL (80.0-105.0); MEAN CORPUSCULAR HEMOGLOBIN 29.2 pg (25.0-35.0); MEAN CORPUSCULAR HGB CONC 33.3 g/dl (31.0-37.0); MEAN PLATELET VOLUME 11.4 fl (7.0-11.0); MONO # 1.4 (0.1-0.6); MONO % 13.7 % (1.0-6.0); PLATELET COUNT 364 10^3/uL (120.0-450.0); RED CELL DISTRIBUTION WIDTH 14.3 % (11.5-14.5); WHITE BLOOD COUNT 10.4 10^3/ul (4.5-11.0)
[2016-08-23 06:24] LABS: ALB/GLOB RATIO 1.9 (1.1-1.8); ALKALINE PHOSPHATASE 108 U/L (38-133); ALT/SGPT 29 U/L (7-56); AST/SGOT 19 U/L (15-59); BILIRUBIN,TOTAL 0.7 mg/dL (0.2-1.3); BLOOD UREA NITROGEN 16 mg/dL (7-21); CALCIUM 8.9 mg/dL (8.4-10.5); CARBON DIOXIDE 31 mmol/L (21-33); CHLORIDE 94 mmol/L (95-110); GFR AFRICAN-AMERICAN > 60; PHOSPHOROUS 3.2 mg/dL (2.5-4.5); POTASSIUM 4.9 mmol/L (3.6-5.0); SODIUM 134 mmol/L (132-148); TOTAL PROTEIN 5.4 g/dL (5.8-8.3)
[2016-08-23 06:45] VITALS: RESP 20
[2016-08-23 06:45] LABS: GLUCOSE,RANDOM 329 mg/dL (70-110)
[2016-08-23] MEDS: Insulin Lispro (humaLOG) MEDIUM Coverage SC SCH ×2 (08:16→12:05)
[2016-08-23 08:17] LABS: INR 2.11 (0.93-1.08); PARTIAL THROMBOPLASTIN TIME 36.2 Seconds (23.7-30.8)
[2016-08-23] MEDS: Insulin Lispro (humaLOG) MIX 75/25(10 ml) SC SCH (08:20)
--- NOTE | 2016-08-23 08:51 | CARD ---
APPROVED REPORT EXAM: Two-dimensional and M-mode echocardiogram with Doppler and color Doppler. Other Information Quality : AverageRhythm : INDICATION Dyspnea Cardiomyopathy 2D DIMENSIONS Left Atrium (2D)5.4 (1.6-4.0cm)IVSd1.0 (0.7-1.1cm) LVDd6.5 (3.9-5.9cm)PWd0.9 (0.7-1.1cm) LVDs5.4 (2.5-4.0cm)FS (%) 17.7 % LVEF (%)35.0 (>50%) M-Mode DIMENSIONS Aortic Root3.10 (2.2-3.7cm)Aortic Cusp Exc.1.70 (1.5-2.0cm) Aortic Valve AoV Peak Ridmptrk426.0cm/s Mitral Valve MV E Ncvwsyvf821.0cm/sMV A Jysbspfw72.9cm/sE/A ratio2.7 TDI E/Lateral E'0.0E/Medial E'0.0 Pulmonary Valve PV Peak Eovfrkwk19.8cm/sPV Peak Grad.1mmHg Tricuspid Valve TR Peak Ycakkhwf608ip/sRAP [id number] Peak Gr.16mmHg [id number] LEFT VENTRICLE The Left Ventricle is mildly dilated. There is normal left ventricular wall thickness. Left ventricle systolic function is moderately to severely impaired. The Ejection Fraction is 30-35%. There is moderate to severe global hypokinesis. RIGHT VENTRICLE The right ventricle is normal size. ATRIA The left atrium is mildly dilated. The right atrium size is normal. The interatrial septum is intact with no evidence for an atrial septal defect. AORTIC VALVE The aortic valve is normal in structure. MITRAL VALVE The mitral valve is normal in structure. Mitral regurgitation is trace to mild. TRICUSPID VALVE The tricuspid valve is normal in structure. There is trace tricuspid regurgitation. PULMONIC VALVE The pulmonary valve is normal in structure. There is trace pulmonic valvular regurgitation. GREAT VESSELS The aortic root is normal in size. PERICARDIAL EFFUSION There is no pericardial effusion. <Conclusion> The Left Ventricle is mildly dilated. There is normal left ventricular wall thickness. Left ventricle systolic function is moderately to severely impaired. The Ejection Fraction is 30-35%. There is moderate to severe global hypokinesis.
--- NOTE | 2016-08-23 08:59 | CP.PCM.PN ---
Subjective - Date & Time of Evaluation Date of Evaluation: 08/23/16 Time of Evaluation: 07:00 - Subjective Subjective: Stable on 2R. No CP or SOB. Sore throat. V/S noted. RSR. PE: Lungs: clear Cor.: S1S2 Abd.: soft Ext.: no edema Neuro.: alert Labs: INR= 2.11 BC x2 + Klebs CXR 08/21: NAD echo: Dilated LV with mod/sev LVD, EF ~ 30 - 35% Objective - Vital Signs/Intake and Output Vital Signs (last 24 hours): Temp Pulse Resp BP Pulse Ox 97.6 F 61 20 104/61 98 08/23/16 06:00 08/23/16 06:00 08/23/16 06:00 08/23/16 06:00 08/23/16 06:00 Intake and Output: 08/23/16 08/23/16 06:59 18:59 Intake Total 460 Balance 460 - Medications Medications: Current Medications Albuterol/Ipratropium (Duoneb 3 Mg/0.5 Mg (3 Ml) Ud) 3 ml IH [id number] [facility] Last Admin: 08/23/16 07:51 Dose: 3 ml Carvedilol (Coreg) 3.125 mg PO BID [facility] Last Admin: 08/22/16 17:46 Dose: 3.125 mg Furosemide (Lasix) 40 mg PO DAILY [facility] Last Admin: 08/22/16 09:14 Dose: 40 mg Meropenem 1g/NS 100mL IVPB (Meropenem 1g/Ns 100ml Ivpb) 1 gm in 100 mls @ 100 mls/hr IVPB Q8 [facility] PRN Reason: Protocol Stop: 08/30/16 14:38 Last Admin: 08/23/16 05:05 Dose: 100 mls/hr Insulin Detemir (Levemir) 20 unit SC HS [facility] Last Admin: 08/22/16 23:48 Dose: Not Given Insulin Human Lispro (Humalog Med) 0 units SC ACHS [facility] PRN Reason: Protocol Last Admin: 08/23/16 08:16 Dose: 5 units Insulin Lispro Protam/Lispro Human (Humalog Mix 75/25) 20 units SC ACB [facility] Last Admin: 08/23/16 08:20 Dose: 20 units Insulin Lispro Protam/Lispro Human (Humalog Mix 75/25) 10 units SC ACD [facility] Last Admin: 08/22/16 16:35 Dose: 10 unit Lidocaine HCl (Lidocaine 2% Viscous) 15 ml MM Q3H PRN PRN Reason: Pain, moderate (4-7) Last Admin: 08/21/16 22:05 Dose: 15 ml Lisinopril (Zestril) 5 mg PO DAILY [facility] Last Admin: 08/22/16 09:14 Dose: 5 mg Morphine Sulfate (Morphine) 2 mg IVP Q6 PRN PRN Reason: Pain, moderate (4-7) Last Admin: 08/23/16 05:04 Dose: 2 mg Pantoprazole Sodium (Protonix Ec Tab) 40 mg PO 0600 [facility] Last Admin: 08/23/16 05:04 Dose: 40 mg Warfarin Sodium (Coumadin) 7.5 mg PO 1800 [facility] PRN Reason: Protocol Last Admin: 08/22/16 17:46 Dose: 7.5 mg - Labs Labs: 08/23/16 06:05 08/23/16 06:05 PT 22.8 Seconds (9.9-11.8) H 08/23/16 08:00 INR 2.11 (0.93-1.08) H 08/23/16 08:00 APTT 36.2 Seconds (23.7-30.8) H 08/23/16 08:00 Assessment and Plan - Assessment and Plan (Free Text) Assessment: Fever, Chills, sore throat, body aches, leg pains S/P tonsillectomy 08/18 BCs x2 + Klebs CMP CHF Factor V Leiden deficiency DVT/IVC Filter/PE with surgical PA thrombectomy HBP S/P Splenectomy H/O rght knee hemarthrosis Psoriasis H/O Drug Misuse S/P femur fracture ED/Penile implant Plan: As per ID > AB tx. PO Lasix As per ENT and Hospitalists: D/W ENT A/C with warfarin at this time. Is it OK? Continue Carvedilol 3.25 BID Needs cardiology f/u and EP evaluation for ICD once infection issues are resolved. 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 Will order MUGA EF. Monitor: I/O, labs, cultures, INR's, sats., etc
[2016-08-23 12:08] VITALS: BP 100/66
[2016-08-23 12:41] VITALS: TEMP 97.7
--- NOTE | 2016-08-23 13:15 | CP.PCM.DIS ---
<Damián Barrett - Last Filed: 08/23/16 13:19> Provider - Provider Date of Admission: 08/19/16 21:00 Attending physician: Yury Gibbs MD Consults: Derek Garcia Time Spent in preparation of Discharge (in minutes): 45 Hospital Course - Lab Results Lab Results: Micro Results 08/20/16 00:01 Urine,Clean Catch Urine Culture - Final No Growth (<1,000 CFU/ML) Most Recent Lab Values WBC 10.4 10^3/ul (4.5-11.0) 08/23/16 06:05 RBC 4.49 10^6/uL (3.5-6.1) 08/23/16 06:05 Hgb 13.1 gm/dL (14.0-18.0) L 08/23/16 06:05 Hct 39.3 % (42.0-52.0) L 08/23/16 06:05 MCV 87.5 fL (80.0-105.0) 08/23/16 06:05 MCH 29.2 pg (25.0-35.0) 08/23/16 06:05 MCHC 33.3 g/dl (31.0-37.0) 08/23/16 06:05 RDW 14.3 % (11.5-14.5) 08/23/16 06:05 Plt Count 364 10^3/uL (120.0-450.0) 08/23/16 06:05 MPV 11.4 fl (7.0-11.0) H 08/23/16 06:05 Gran % 57.3 % (50.0-68.0) 08/23/16 06:05 Lymph % (Auto) 26.9 % (22.0-35.0) 08/23/16 06:05 [place] % (Auto) 13.7 % (1.0-6.0) H 08/23/16 06:05 Eos % (Auto) 1.6 % (1.5-5.0) 08/23/16 06:05 Baso % (Auto) 0.5 % (0.0-3.0) 08/23/16 06:05 Gran # 5.97 (1.4-6.5) 08/23/16 06:05 Lymph # 2.8 (1.2-3.4) 08/23/16 06:05 [place] # 1.4 (0.1-0.6) H 08/23/16 06:05 Eos # 0.2 (0.0-0.7) 08/23/16 06:05 Baso # 0.05 K/mm3 (0.0-2.0) 08/23/16 06:05 PT 22.8 Seconds (9.9-11.8) H 08/23/16 08:00 INR 2.11 (0.93-1.08) H 08/23/16 08:00 APTT 36.2 Seconds (23.7-30.8) H 08/23/16 08:00 pCO2 45 mm/Hg (35-45) 08/19/16 18:37 pO2 60.0 mm/Hg (80-100) L 08/19/16 18:37 HCO3 25.4 mmol/L (21-28) 08/19/16 18:37 ABG pH 7.36 (7.35-7.45) 08/19/16 18:37 ABG Total CO2 26.8 mmol.L (22-28) 08/19/16 18:37 ABG O2 Saturation 94.0 % (95-98) L 08/19/16 18:37 ABG O2 Content 18.0 ML/dl (15-23) 08/19/16 18:37 ABG Base Excess -0.4 mmol/L (-2.0-3.0) 08/19/16 18:37 ABG Hemoglobin 14.1 g/dL (11.7-17.4) 08/19/16 18:37 ABG Carboxyhemoglobin 2.3 % (0.5-1.5) H 08/19/16 18:37 POC ABG HHb (Measured) 5.8 % (0-5) H 08/19/16 18:37 ABG Methemoglobin 1.0 % (0.0-3.0) 08/19/16 18:37 ABG O2 Capacity 19.1 mL/dl (16-24) 08/19/16 18:37 VBG pH 7.36 (7.32-7.43) 08/19/16 17:50 VBG pCO2 47.0 (40-60) 08/19/16 17:50 VBG HCO3 26.6 mmol/l (21-28) 08/19/16 17:50 VBG Total CO2 28.0 mmol.L (22-28) 08/19/16 17:50 VBG O2 Sat (Calc) 95.6 % (40-65) H 08/19/16 17:50 VBG Base Excess 0.6 mmol/L (0.0-2.0) 08/19/16 17:50 VBG Potassium 4.4 mmol/L (3.6-5.2) 08/19/16 17:50 Hgb O2 Saturation 90.9 % (95.0-98.0) L 08/19/16 18:37 Sodium 132.0 mmol/L (132-148) 08/19/16 17:50 Chloride 92.0 mmol/L (98-107) L 08/19/16 17:50 Glucose 471 mg/dl (75-110) H* 08/19/16 17:50 Lactate 2.0 mmol/L (0.7-2.1) 08/19/16 17:50 FiO2 21.0 % 08/19/16 18:37 Sodium 134 mmol/L (132-148) 08/23/16 06:05 Potassium 4.9 mmol/L (3.6-5.0) 08/23/16 06:05 Chloride 94 mmol/L (95-110) L 08/23/16 06:05 Carbon Dioxide 31 mmol/L (21-33) 08/23/16 06:05 Anion Gap 14 (10-20) 08/23/16 06:05 BUN 16 mg/dL (7-21) 08/23/16 06:05 Creatinine 0.8 mg/dL (0.5-1.4) 08/23/16 06:05 Est GFR ( Amer) > 60 08/23/16 06:05 Est GFR (Non-Af Amer) > 60 08/23/16 06:05 POC Glucose (mg/dL) 322 mg/dL (65-110) H 08/23/16 11:03 Random Glucose 329 mg/dL (70-110) H* 08/23/16 06:05 Uric Acid 7.3 mg/dL (3.5-8.5) 08/22/16 07:00 Calcium 8.9 mg/dL (8.4-10.5) 08/23/16 06:05 Phosphorus 3.2 mg/dL (2.5-4.5) 08/23/16 06:05 Magnesium 2.0 mg/dL (1.7-2.2) 08/23/16 06:05 Total Bilirubin 0.7 mg/dL (0.2-1.3) 08/23/16 06:05 AST 19 U/L (15-59) 08/23/16 06:05 ALT 29 U/L (7-56) 08/23/16 06:05 Alkaline Phosphatase 108 U/L (38-133) 08/23/16 06:05 Lactate Dehydrogenase 406 U/L (333-699) 08/19/16 17:50 Total Creatine Kinase 44 U/L (35-230) 08/19/16 17:50 Troponin I < 0.01 ng/mL 08/20/16 06:30 NT-Pro-B Natriuret Pep 2180 pg/mL (0-450) H 08/19/16 17:50 Total Protein 5.4 g/dL (5.8-8.3) L 08/23/16 06:05 Albumin 3.5 g/dL (3.0-4.8) 08/23/16 06:05 Globulin 1.9 gm/dL 08/23/16 06:05 Albumin/Globulin Ratio 1.9 (1.1-1.8) H 08/23/16 06:05 Procalcitonin 1.90 NG/ML (0.19-0.49) H 08/20/16 06:30 Venous Blood Potassium 4.4 mmol/L (3.6-5.2) 08/19/16 17:50 Urine Color Yellow (YELLOW) 08/19/16 18:15 Urine Appearance Clear (CLEAR) 08/19/16 18:15 Urine pH 6.0 (4.7-8.0) 08/19/16 18:15 Ur Specific [place] 1.020 (1.005-1.035) 08/19/16 18:15 Urine Protein Negative mg/dL (<30 mg/dL) 08/19/16 18:15 Urine Glucose (UA) 250 mg/dL (NEGATIVE) H 08/19/16 18:15 Urine Ketones Trace mg/dL (NEGATIVE) H 08/19/16 18:15 Urine Blood Negative (NEGATIVE) 08/19/16 18:15 Urine Nitrate Negative (NEGATIVE) 08/19/16 18:15 Urine Bilirubin Negative (NEGATIVE) 08/19/16 18:15 Urine Urobilinogen 1.0 E.U./dL (<1 E.U./dL) H 08/19/16 18:15 Ur Leukocyte Esterase Negative Cori/uL (NEGATIVE) 08/19/16 18:15 - Hospital Course Hospital Course: Admit date- 08/19 DC date- 08/23 Consults Derek Garcia Discharge dx 1. Klebsiella bactermia 2. CHF 3. DM 4. HTN 5. s/p tonsillectomy 6. hx of DVT 7. hx of PE 8. hx of splenectomy Procedures- none No complications HPI: see h/p Labs: see lab data Hospital course This is a 40 yo male with past medical history of CHF (previously LVEF 10-15%), DVT s/p IVC filter placement, factor v leiden mutation, psoriasis, PE presents c /o fever, chills, headache, SOB and bodyaches s/p tonsillectomy. 1. CHF exacerbation - F/u sputum cultures -LVEF ~10-15% on echocardiogram from 2016; see full report -new EF 35 percent -BNP 2180 -Troponin negative x 3 -B/L venous duplex negative for DVT -CXR revealed vascular congestion; no apparent infiltrates; cardiomegaly -CT angio revealed no dissection or acute process in the lungs; small focal questionable filling defect of one of the segments of the left base, which may represent old PE, artifact, however a small acute PE in the area cannot be excluded but is felt to be less likely; see full report - Lasix 40mg IVP q12h>> changed to 40 mg daily -home lisinopril 5mg po qd -Strict I's and O's; Daily weight; HOB > 45', O2 supplementation -Cardiology consulted - Dr. Beaulieu -coreg BID -pt may need to be evaluated for defibrillator 2. Hx Tonsillectomy 3 days ago - Pain in post pharynx and neck - CT neck - small collection of air seen b the palatine tonsils and adjacent pharyngeal space - Gram neg rods in blood - ID consulted for recs - Cont Rory r/o Lemierre dx, and ordered CT abd/pelvis - f/u CT abd pelvis >> shows b/l renal scars, along with renal cysts, please see full report -pt with klebsiella bactermia -dc home on cipro and flagyl 3. Diabetes mellitus -Patient started on Humalog 75/25 20U ACB and 10U ACD -Levemir 20U HS -Humalog ISS medium dose -Fingersticks ACHS -Consistent carb/heart healthy diet 4. History of DVT -Continue warfarin 7.5 mg PO daily -lovenox 40 q 12 >> discontinued -INR checks 5. LLE cellulitis -pt has been afebrile -Started on rocephin 1gm IV>> now on meropenem IV>>> dc on cipro and flagyl -ID consulted -morphine for pain 6. Pain in right foot -xrays negative -urice acid level 7. GI/DVT prophylaxis -Protonix/warfarin DC instructions Please DC pt. home. Please f/u with PMD. Please return if condition worsens. Please f/u with ENT and cardiology. Take cipro and flagyl for 10 more days. DC meds 1. coreg 2. lasix 3. levemir 4. humalog 5. lisinopril 6. ciprofloxacin PO BID x 10 days 7. flagyl PO q 8 x 10 days - Date & Time of H&P Date of H&P: 08/19/16 Time of H&P: 22:18 Discharge Exam - Head Exam Head Exam: ATRAUMATIC, NORMAL INSPECTION, NORMOCEPHALIC - Eye Exam Eye Exam: EOMI - ENT Exam ENT Exam: Mucous Membranes Moist - Neck Exam Neck exam: Full Rom, Normal Inspection - Respiratory Exam Respiratory Exam: Rales, UNREMARKABLE - Cardiovascular Exam Cardiovascular Exam: +S1, +S2 - GI/Abdominal Exam GI & Abdominal Exam: Normal Bowel Sounds - Extremities Exam Extremities exam: full ROM, normal inspection - Neurological Exam Neurological exam: Alert, CN II-XII Intact, Oriented x3 - Psychiatric Exam Psychiatric exam: Normal Affect, Normal Mood - Skin Skin Exam: Dry, Intact, Normal Color, Warm Discharge Plan - Discharge Medications Prescriptions: Ciprofloxacin [Cipro] 500 mg PO Q12 #20 tab metroNIDAZOLE [Flagyl] 500 mg PO Q8 #30 tab - Follow Up Plan Condition: STABLE Disposition: HOME/ ROUTINE Instructions: Heart Failure (DC), Chronic Hypertension (DC), Tonsillectomy (DC) <Yury Gibbs MD - Last Filed: 08/23/16 17:16> Provider - Provider Date of Admission: 08/19/16 21:00 Attending physician: Yury Gibbs MD Hospital Course - Lab Results Lab Results: Micro Results 08/20/16 00:01 Urine,Clean Catch Urine Culture - Final No Growth (<1,000 CFU/ML) Most Recent Lab Values WBC 10.4 10^3/ul (4.5-11.0) 08/23/16 06:05 RBC 4.49 10^6/uL (3.5-6.1) 08/23/16 06:05 Hgb 13.1 gm/dL (14.0-18.0) L 08/23/16 06:05 Hct 39.3 % (42.0-52.0) L 08/23/16 06:05 MCV 87.5 fL (80.0-105.0) 08/23/16 06:05 MCH 29.2 pg (25.0-35.0) 08/23/16 06:05 MCHC 33.3 g/dl (31.0-37.0) 08/23/16 06:05 RDW 14.3 % (11.5-14.5) 08/23/16 06:05 Plt Count 364 10^3/uL (120.0-450.0) 08/23/16 06:05 MPV 11.4 fl (7.0-11.0) H 08/23/16 06:05 Gran % 57.3 % (50.0-68.0) 08/23/16 06:05 Lymph % (Auto) 26.9 % (22.0-35.0) 08/23/16 06:05 [place] % (Auto) 13.7 % (1.0-6.0) H 08/23/16 06:05 Eos % (Auto) 1.6 % (1.5-5.0) 08/23/16 06:05 Baso % (Auto) 0.5 % (0.0-3.0) 08/23/16 06:05 Gran # 5.97 (1.4-6.5) 08/23/16 06:05 Lymph # 2.8 (1.2-3.4) 08/23/16 06:05 [place] # 1.4 (0.1-0.6) H 08/23/16 06:05 Eos # 0.2 (0.0-0.7) 08/23/16 06:05 Baso # 0.05 K/mm3 (0.0-2.0) 08/23/16 06:05 PT 22.8 Seconds (9.9-11.8) H 08/23/16 08:00 INR 2.11 (0.93-1.08) H 08/23/16 08:00 APTT 36.2 Seconds (23.7-30.8) H 08/23/16 08:00 pCO2 45 mm/Hg (35-45) 08/19/16 18:37 pO2 60.0 mm/Hg (80-100) L 08/19/16 18:37 HCO3 25.4 mmol/L (21-28) 08/19/16 18:37 ABG pH 7.36 (7.35-7.45) 08/19/16 18:37 ABG Total CO2 26.8 mmol.L (22-28) 08/19/16 18:37 ABG O2 Saturation 94.0 % (95-98) L 08/19/16 18:37 ABG O2 Content 18.0 ML/dl (15-23) 08/19/16 18:37 ABG Base Excess -0.4 mmol/L (-2.0-3.0) 08/19/16 18:37 ABG Hemoglobin 14.1 g/dL (11.7-17.4) 08/19/16 18:37 ABG Carboxyhemoglobin 2.3 % (0.5-1.5) H 08/19/16 18:37 POC ABG HHb (Measured) 5.8 % (0-5) H 08/19/16 18:37 ABG Methemoglobin 1.0 % (0.0-3.0) 08/19/16 18:37 ABG O2 Capacity 19.1 mL/dl (16-24) 08/19/16 18:37 VBG pH 7.36 (7.32-7.43) 08/19/16 17:50 VBG pCO2 47.0 (40-60) 08/19/16 17:50 VBG HCO3 26.6 mmol/l (21-28) 08/19/16 17:50 VBG Total CO2 28.0 mmol.L (22-28) 08/19/16 17:50 VBG O2 Sat (Calc) 95.6 % (40-65) H 08/19/16 17:50 VBG Base Excess 0.6 mmol/L (0.0-2.0) 08/19/16 17:50 VBG Potassium 4.4 mmol/L (3.6-5.2) 08/19/16 17:50 Hgb O2 Saturation 90.9 % (95.0-98.0) L 08/19/16 18:37 Sodium 132.0 mmol/L (132-148) 08/19/16 17:50 Chloride 92.0 mmol/L (98-107) L 08/19/16 17:50 Glucose 471 mg/dl (75-110) H* 08/19/16 17:50 Lactate 2.0 mmol/L (0.7-2.1) 08/19/16 17:50 FiO2 21.0 % 08/19/16 18:37 Sodium 134 mmol/L (132-148) 08/23/16 06:05 Potassium 4.9 mmol/L (3.6-5.0) 08/23/16 06:05 Chloride 94 mmol/L (95-110) L 08/23/16 06:05 Carbon Dioxide 31 mmol/L (21-33) 08/23/16 06:05 Anion Gap 14 (10-20) 08/23/16 06:05 BUN 16 mg/dL (7-21) 08/23/16 06:05 Creatinine 0.8 mg/dL (0.5-1.4) 08/23/16 06:05 Est GFR ( Amer) > 60 08/23/16 06:05 Est GFR (Non-Af Amer) > 60 08/23/16 06:05 POC Glucose (mg/dL) 322 mg/dL (65-110) H 08/23/16 11:03 Random Glucose 329 mg/dL (70-110) H* 08/23/16 06:05 Uric Acid 7.3 mg/dL (3.5-8.5) 08/22/16 07:00 Calcium 8.9 mg/dL (8.4-10.5) 08/23/16 06:05 Phosphorus 3.2 mg/dL (2.5-4.5) 08/23/16 06:05 Magnesium 2.0 mg/dL (1.7-2.2) 08/23/16 06:05 Total Bilirubin 0.7 mg/dL (0.2-1.3) 08/23/16 06:05 AST 19 U/L (15-59) 08/23/16 06:05 ALT 29 U/L (7-56) 08/23/16 06:05 Alkaline Phosphatase 108 U/L (38-133) 08/23/16 06:05 Lactate Dehydrogenase 406 U/L (333-699) 08/19/16 17:50 Total Creatine Kinase 44 U/L (35-230) 08/19/16 17:50 Troponin I < 0.01 ng/mL 08/20/16 06:30 NT-Pro-B Natriuret Pep 2180 pg/mL (0-450) H 08/19/16 17:50 Total Protein 5.4 g/dL (5.8-8.3) L 08/23/16 06:05 Albumin 3.5 g/dL (3.0-4.8) 08/23/16 06:05 Globulin 1.9 gm/dL 08/23/16 06:05 Albumin/Globulin Ratio 1.9 (1.1-1.8) H 08/23/16 06:05 Procalcitonin 1.90 NG/ML (0.19-0.49) H 08/20/16 06:30 Venous Blood Potassium 4.4 mmol/L (3.6-5.2) 08/19/16 17:50 Urine Color Yellow (YELLOW) 08/19/16 18:15 Urine Appearance Clear (CLEAR) 08/19/16 18:15 Urine pH 6.0 (4.7-8.0) 08/19/16 18:15 Ur Specific [place] 1.020 (1.005-1.035) 08/19/16 18:15 Urine Protein Negative mg/dL (<30 mg/dL) 08/19/16 18:15 Urine Glucose (UA) 250 mg/dL (NEGATIVE) H 08/19/16 18:15 Urine Ketones Trace mg/dL (NEGATIVE) H 08/19/16 18:15 Urine Blood Negative (NEGATIVE) 08/19/16 18:15 Urine Nitrate Negative (NEGATIVE) 08/19/16 18:15 Urine Bilirubin Negative (NEGATIVE) 08/19/16 18:15 Urine Urobilinogen 1.0 E.U./dL (<1 E.U./dL) H 08/19/16 18:15 Ur Leukocyte Esterase Negative Cori/uL (NEGATIVE) 08/19/16 18:15 Attending/Attestation - Attestation I have fully participated in the care of the patient.: Yes I have reviewed all pertinent clinical information, including history, physical exam and plan: Yes Notes (Text): 08/23/16 17:11 Patient was seen and examined with electromedical equipment technician .Agreed with resident assessment and plan. 40 yo male with past medical history of CHF (previously LVEF 10-15%), DVT ,PE s/ p IVC filter placement, factor v leiden mutation on oral anticoagulation , was admitted with history of fever, chills, headache, SOB and body aches after tonsillectomy, CT scan of neck shows some gas like finding in tonsillar area.Patient was evaluated by ENT and felt that this is post operative changes.Patient grew K.Pneumonia bacteremia , was treated with IV Meropenem.He is afebrile.Repeat Echo showed EF 30-35%.Patient is euvolemic.INR is therapeutic.He will be discharged home on PO Ciprofloxacin as per ID.He will need close monitoring of INR with his PCP as he is on antibiotics that could affect his INR.He will also follow up with his gyroscopic instrument mechanic Management plan was discussed in detail with patient Education was provided.
[2016-08-23 15:12] VITALS: PULSE 85
--- NOTE | 2016-08-23 19:53 | CP.PCM.PN ---
Subjective - Date & Time of Evaluation Date of Evaluation: 08/23/16 Time of Evaluation: 09:00 - Subjective Subjective: DOING WELL Objective - Vital Signs/Intake and Output Vital Signs (last 24 hours): Temp Pulse Resp BP Pulse Ox 97.7 F 85 20 100/66 98 08/23/16 12:00 08/23/16 14:00 08/23/16 12:00 08/23/16 12:01 08/23/16 06:00 Intake and Output: 08/23/16 08/24/16 18:59 06:59 Intake Total 360 Balance 360 - Labs Labs: 08/23/16 06:05 08/23/16 06:05 PT 22.8 Seconds (9.9-11.8) H 08/23/16 08:00 INR 2.11 (0.93-1.08) H 08/23/16 08:00 APTT 36.2 Seconds (23.7-30.8) H 08/23/16 08:00 - Constitutional Appears: Well - Head Exam Head Exam: ATRAUMATIC, NORMAL INSPECTION, NORMOCEPHALIC - Eye Exam Eye Exam: EOMI, Normal appearance, PERRL Pupil Exam: NORMAL ACCOMODATION, PERRL - ENT Exam ENT Exam: Mucous Membranes Moist, Normal Exam - Neck Exam Neck Exam: Full ROM, Normal Inspection. absent: Lymphadenopathy - Respiratory Exam Respiratory Exam: Clear to Ausculation Bilateral, NORMAL BREATHING PATTERN - Cardiovascular Exam Cardiovascular Exam: REGULAR RHYTHM, +S1, +S2. absent: Murmur - GI/Abdominal Exam GI & Abdominal Exam: Soft, Normal Bowel Sounds. absent: Tenderness - Rectal Exam Rectal Exam: NORMAL INSPECTION - Exam Exam: Circumcision, NORMAL INSPECTION External exam: NORMAL EXTERNAL EXAM Speculum exam: NORMAL SPECULUM EXAM Bimanual exam: NORMAL BIMANUAL EXAM - Extremities Exam Extremities Exam: Full ROM, Normal Capillary Refill, Normal Inspection. absent : Joint Swelling, Pedal Edema - Back Exam Back Exam: NORMAL INSPECTION - Neurological Exam Neurological Exam: Alert, Awake, CN II-XII Intact, Normal Gait, Oriented x3 - Psychiatric Exam Psychiatric exam: Normal Affect, Normal Mood - Skin Skin Exam: Dry, Intact, Normal Color, Warm Assessment and Plan - Assessment and Plan (Free Text) Assessment: SEPSIS WITH KLEBS BACTEREMIA Plan: TX WITH PO PT EXPLAINED HAVING AUGMENTIN FOR FEVER SINCE NO SPLEEN F/UP WITH PMD
== END 2016-08-23 16:22 | disposition home or self-care (01) | DRG 584 ==
LOC: ED 17:45 → ERH 21:00 → 2RNO 23:00
PROVIDERS: ADMIT Internal Medicine; ATTEND Internal Medicine
DX: A41.89 Other specified sepsis (principal); I50.21 Acute systolic (congestive) heart failure; D68.51 Activated protein C resistance; I42.0 Dilated cardiomyopathy; E10.65 Type 1 diabetes mellitus with hyperglycemia; N28.1 Cyst of kidney, acquired; I11.0 Hypertensive heart disease with heart failure; B96.1 Klebsiella pneumoniae [K. pneumoniae] as the cause of diseases classified elsewhere; L03.116 Cellulitis of left lower limb; F10.10 Alcohol abuse, uncomplicated; I25.10 Atherosclerotic heart disease of native coronary artery without angina pectoris; K21.9 Gastro-esophageal reflux disease without esophagitis; L40.9 Psoriasis, unspecified; L80 Vitiligo; R13.10 Dysphagia, unspecified; Z79.01 Long term (current) use of anticoagulants; Z79.4 Long term (current) use of insulin; Z79.899 Other long term (current) drug therapy; Z80.9 Family history of malignant neoplasm, unspecified; Z82.49 Family history of ischemic heart disease and other diseases of the circulatory system; Z83.3 Family history of diabetes mellitus; Z86.711 Personal history of pulmonary embolism; Z86.718 Personal history of other venous thrombosis and embolism; Z87.01 Personal history of pneumonia (recurrent); Z87.891 Personal history of nicotine dependence; Z90.81 Acquired absence of spleen; Z91.19 Patient's noncompliance with other medical treatment and regimen; Z95.1 Presence of aortocoronary bypass graft; M79.671 Pain in right foot; R22.1 Localized swelling, mass and lump, neck; Z87.81 Personal history of (healed) traumatic fracture; Z87.898 Personal history of other specified conditions; Z96.89 Presence of other specified functional implants

== ENCOUNTER 2016-08-31 05:50 | Inpatient (IN) | payer MEDICAID ==
[2016-08-31 05:51] VITALS: BMI 27.3
--- NOTE | 2016-08-31 06:44 | ED PDOC ---
Arrival/HPI - General Chief Complaint: GI Problem Time Seen by Provider: 08/31/16 06:25 Historian: Patient - History of Present Illness Narrative History of Present Illness (Text): 08/31/16 06:38 40 y.o. male whose past medical history includes factor V leiden with h/o DVT/ IVC filter, DM, CHF and is 19 days s/p tonsillectomy. Patient says that he woke up this morning and coughed up a significant amount of blood as well as having a feeling of sob. He denies any chest pain or abd pain or dizziness. He says he has been getting a pain from his right heel and up the lower right calf over the past few days. No dizziness or n/v or blood in stools or hematemesis. No sore throat. Past Medical History - Infectious Disease Hx of Infectious Diseases: None - Tetanus Immunization Tetanus Immunization: Up to Date (3 years ago) - Cardiac Hx Cardiac Disorders: Yes Hx Congestive Heart Failure: Yes - Pulmonary Hx Respiratory Disorders: Yes Hx Pneumonia: Yes Other/Comment: multiple PE and DVT - Neurological Hx Neurological Disorder: No - HEENT Hx HEENT Disorder: No - Renal Hx Renal Disorder: No - Endocrine/Metabolic Hx Diabetes Mellitus Type 2: Yes - Hematological/Oncological Hx Blood Transfusions: Yes Hx Blood Transfusion Reaction: No Other/Comment: Factor V Leiden - Integumentary Hx Dermatological Disorder: Yes (VITILIGO) Hx Psoriasis: Yes (LEFT LEG) Other/Comment: Laser pressley on removed tattoo kishore. 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 - Musculoskeletal/Rheumatological Hx Musculoskeletal Disorders: Yes Hx Falls: No Hx Fractures: Yes (FEMORAL FX ORIF REMOVAL OF HARDWARE) Hx Unsteady Gait: Yes - Gastrointestinal Hx Gastrointestinal Disorders: Yes Hx Gastroesophageal Reflux: Yes - Genitourinary/Gynecological Hx Genitourinary Disorders: Yes Other/Comment: ERECTILE DYSFUNCTION/penile implant - Psychiatric Hx Psychophysiologic Disorder: No Hx Substance Use: Yes (HEROINE/COCAINE H/O QUIT LAST USED MONTH AGO) - Surgical History Hx Open Heart Surgery: Yes (remove blot clot 2004) Hx Splenectomy: Yes (2003) Hx Tonsillectomy: Yes Other/Comment: Femur fracture 2003,DVT IVC FILTER,OPEN HEART SURGERY-CLOT REMOVAL FOR L VENTRICLE 2004. - Anesthesia Hx Anesthesia Reactions: No Hx Malignant Hyperthermia: No - Suicidal Assessment Feels Threatened In Home Enviroment: No Family/Social History Family/Social History: No Known Family HX Smoking Status: Never Smoked Hx Alcohol Use: Yes Hx Substance Use: Yes (HEROINE/COCAINE H/O QUIT LAST USED MONTH AGO) Substance used: Amphetamines Hx Substance Use Treatment: No Allergies/Home Meds Allergies/Adverse Reactions: Allergies No Known Allergies Allergy (Verified 08/02/15 09:41) Home Medications: Home Meds Medication Instructions Recorded Confirmed Lisinopril [Zestril] 5 mg PO DAILY 08/19/16 08/19/16 Review of Systems - Physician Review All systems were reviewed & negative as marked: Yes - Review of Systems Constitutional: Normal Eyes: Normal ENT: Normal Respiratory: SOB, Cough Cardiovascular: PRAJAPATI Gastrointestinal: Normal Genitourinary Male: Normal Musculoskeletal: Other (R foot / calf pain) Skin: Normal Neurological: Normal Endocrine: Normal Hemo/Lymphatic: Normal Psychiatric: Normal Physical Exam Vital Signs Temp Pulse Resp BP Pulse Ox 08/31/16 06:12 98.0 F 80 18 104/65 97 Temperature: Afebrile Blood Pressure: Normal Pulse: Regular Respiratory Rate: Normal Appearance: Positive for: Well-Appearing, Non-Toxic, Comfortable Pain Distress: None Mental Status: Positive for: Alert and Oriented X 3 - Systems Exam Head: Present: Atraumatic, Normocephalic Pupils: Present: PERRL Conjunctiva: Present: Normal Mouth: Present: Moist Mucous Membranes Pharnyx: Present: Other (fibrinous material present in posterior oropharynx (R>L )). No: ERYTHEMA Neck: Present: Normal Range of Motion Respiratory/Chest: Present: Clear to Auscultation, Good Air Exchange. No: Respiratory Distress, Accessory Muscle Use Cardiovascular: Present: Regular Rate and Rhythm, Normal S1, S2. No: Murmurs Abdomen: Present: Normal Bowel Sounds. No: Tenderness, Distention, Peritoneal Signs Back: Present: Normal Inspection Upper Extremity: Present: Normal Inspection. No: Cyanosis, Edema Lower Extremity: Present: Normal Inspection. No: Edema Neurological: Present: GCS=15, CN II-XII Intact, Speech Normal Skin: Present: Warm, Dry, Normal Color. No: Rashes Psychiatric: Present: Alert, Oriented x 3, Normal Insight, Normal Concentration Medical Decision Making ED Course and Treatment: 08/31/16 06:59 Patient with noted history with hemoptysis. Differential: supratherapeutic INR vs PE vs CHF 08/31/16 07:00 Patient with another episode of hemoptysis in the ED. The plan is to follow labs and CXR and will likely need further w/u in the hospital; case endorsed to Dr. Harden. - RAD Interpretation Radiology Orders: 08/31/16 06:31 CHEST PORTABLE [RAD] Stat DUPLEX LOWER EXTRM VEIN RIGHT [US] Stat - EKG Interpretation EKG Interpretation (Text): 08/31/16 07:03 NSR @ 77 with LAD; QRS is 102; no new changes c/w 08/19/16. Interpreted by ED Physician: Yes Type: 12 lead EKG Comparison: Similar to previous EKG Disposition/Present on Arrival - Present on Arrival Any Indicators Present on Arrival: Yes History of DVT/PE: Yes History of Uncontrolled Diabetes: No Urinary Catheter: No History of Decub. Ulcer: No History Surgical Site Infection Following: None - Disposition Have Diagnosis and Disposition been Completed?: No Diagnosis: Hemoptysis Disposition Time: 07:00 Condition: STABLE
--- NOTE | 2016-08-31 07:04 | RAD ---
HISTORY: Shortness of breath and hemoptysis COMPARISON: No prior.08/21/2016 and 06/07/2014 FINDINGS: LUNGS: No consolidation appreciated. Perihilar bronchovascular marking prominence with probable cephalization of flow is suggested - pulmonary venous congestion inferred PLEURA: No significant pleural effusion identified, no pneumothorax apparent. CARDIOVASCULAR: Mild cardiomegaly. Midline sternotomy wires - grossly intact OSSEOUS STRUCTURES: No significant abnormalities. VISUALIZED UPPER ABDOMEN: Surgical changes over left upper abdominal quadrant OTHER FINDINGS: Hilar structures appear prominent now and have been somewhat prominent in the past - consistent in large part with pulmonary vascular engorgement. Concomitant hilar/mediastinal lymphadenopathy not excluded increased density in the right paratracheal region may in part be due to slight rotation and manubrium in her are additional right peritracheal pathology/ mediastinal lymphadenopathy here not excluded IMPRESSION: No consolidation. Interval increased pulmonary venous congestion. Bilateral hilar and right peritracheal prominence - as discussed above
[2016-08-31 07:16] LABS: BASO # 0.09 K/mm3 (0.0-2.0); BASO % 0.6 % (0.0-3.0); EOS # 0.1 (0.0-0.7); EOS % 0.7 % (1.5-5.0); GRAN # 7.96 (1.4-6.5); HEMOGLOBIN 14.7 gm/dL (14.0-18.0); LYMPH # 4.2 (1.2-3.4); LYMPH % 29.5 % (22.0-35.0); MEAN CELL VOLUME 86.8 fL (80.0-105.0); MEAN CORPUSCULAR HEMOGLOBIN 29.8 pg (25.0-35.0); MEAN CORPUSCULAR HGB CONC 34.3 g/dl (31.0-37.0); MEAN PLATELET VOLUME 11.3 fl (7.0-11.0); MONO # 1.9 (0.1-0.6); MONO % 13.2 % (1.0-6.0); PLATELET COUNT 478 10^3/uL (120.0-450.0); RBC 4.93 10^6/uL (3.5-6.1); RED CELL DISTRIBUTION WIDTH 14.8 % (11.5-14.5); WHITE BLOOD COUNT 14.2 10^3/ul (4.5-11.0)
--- NOTE | 2016-08-31 07:19 | ED PDOC ---
Physical Exam Vital Signs Reviewed: Yes Vital Signs Temp Pulse Resp BP Pulse Ox 08/31/16 06:12 98.0 F 80 18 104/65 97 Temperature: Afebrile Blood Pressure: Normal Pulse: Regular Respiratory Rate: Normal Appearance: Positive for: Well-Appearing, Non-Toxic, Comfortable Pain Distress: None Mental Status: Positive for: Alert and Oriented X 3 Medical Decision Making ED Course and Treatment: 08/31/16 07:00 Case signed out to me from overnight by Dr. Borjas, pending labs, imaging, reevaluation and final disposition. The patient is a 40 year old male c Past medical history DVT and tonsillectomy 19 days ago who presents to the emergency department for evaluation of hemoptysis and mild shortness of breath. On reevaluation, the patient is resting comfortably. Patient Chest X-ray shows no consolidation; Interval increased pulmonary venous congestion; Bilateral hilar and right peritracheal prominence. Supratherapeutic INR. Dr. Woods will consult, recommends CT with IV contrast of chest. Dr. Wang accepts to hospitalist service. - Lab Interpretations Lab Results: 08/31/16 06:57 08/31/16 06:57 Lab Results 08/31/16 06:57: Sodium 137, Potassium 4.3, Chloride 98, Carbon Dioxide 27, Anion Gap 16, BUN 20, Creatinine 0.8, Est GFR ( Amer) > 60, Est GFR (Non- Af Amer) > 60, Random Glucose 128 H, Calcium 9.4, Magnesium 1.8, Total Bilirubin 0.4, AST 30, ALT 31, Alkaline Phosphatase 141 H, Lactate Dehydrogenase 518, Total Creatine Kinase 77, Troponin I < 0.01, NT-Pro-B Natriuret Pep 1010 H, Total Protein 5.8, Albumin 4.1, Globulin 1.7, Albumin/ Globulin Ratio 2.4 H, Lipase 125 08/31/16 06:57: PT 47.8 H*, INR 4.43 H*, APTT 49.7 H 08/31/16 06:57: WBC 14.2 H D, RBC 4.93, Hgb 14.7, Hct 42.8, MCV 86.8, MCH 29.8, MCHC 34.3, RDW 14.8 H, Plt Count 478 H, MPV 11.3 H, Gran % 56.0, Lymph % (Auto) 29.5, [place] % (Auto) 13.2 H, Eos % (Auto) 0.7 L, Baso % (Auto) 0.6, Gran # 7.96 H , Lymph # 4.2 H, Stan[place] # 1.9 H, Eos # 0.1, Baso # 0.09 I have reviewed the lab results: Yes - RAD Interpretation Radiology Orders: 08/31/16 06:31 CHEST PORTABLE [RAD] Stat DUPLEX LOWER EXTRM VEIN RIGHT [US] Stat 08/31/16 09:11 CHEST W/CONTRAST [CT] Stat - Medication Orders Current Medication Orders: Discontinued Medications Iohexol (Omnipaque 350 100 Ml) Confirm Administered Dose 350 mg .ROUTE .[facility] Stop: 08/31/16 09:22 - Scribe Statement The provider has reviewed the documentation as recorded by the Scribe Luz Rosales Provider Scribe Attestation: All medical record entries made by the Scribe were at my direction and personally dictated by me. I have reviewed the chart and agree that the record accurately reflects my personal performance of the history, physical exam, medical decision making, and the department course for this patient. I have also personally directed, reviewed, and agree with the discharge instructions and disposition. Disposition/Present on Arrival - Present on Arrival Any Indicators Present on Arrival: Yes History of DVT/PE: Yes History of Uncontrolled Diabetes: No Urinary Catheter: No History of Decub. Ulcer: No History Surgical Site Infection Following: None - Disposition Have Diagnosis and Disposition been Completed?: Yes Diagnosis: Hemoptysis, Coagulopathy Disposition: HOSPITALIZED Disposition Time: 08:50 Patient Plan: Admission, Telemetry Patient Problems: Current Active Problems Problem Status Onset Hemoptysis Acute Condition: STABLE Referrals: Allyssa Lowe DO [Primary Care Provider] - Follow up with primary
[2016-08-31 07:36] LABS: ALB/GLOB RATIO 2.4 (1.1-1.8); ALBUMIN 4.1 g/dL (3.0-4.8); ALT/SGPT 31 U/L (7-56); AST/SGOT 30 U/L (15-59); BLOOD UREA NITROGEN 20 mg/dL (7-21); CALCIUM 9.4 mg/dL (8.4-10.5); GFR AFRICAN-AMERICAN > 60; GFR NON-AFRICAN AMERICAN > 60; LIPASE 125 U/L (23-300); MAGNESIUM 1.8 mg/dL (1.7-2.2)
[2016-08-31 07:38] LABS: PARTIAL THROMBOPLASTIN TIME 49.7 Seconds (23.7-30.8); PROTHROMBIN TIME 47.8 Seconds (9.9-11.8)
[2016-08-31 07:40] LABS: INR 4.43 (0.93-1.08)
[2016-08-31 07:48] LABS: B-TYPE NATRIURETIC PEPTIDE 1010 pg/mL (0-450)
[2016-08-31 07:53] LABS: TROPONIN I < 0.01 ng/mL
[2016-08-31] MEDS ORDERED: Iohexol 350 MG/100 ML VIAL ONE (09:21)
[2016-08-31 10:12] LABS: URINE BILIRUBIN NEGATIVE (NEGATIVE); URINE BLOOD NEGATIVE (NEGATIVE); URINE GLUCOSE (UA) 250 mg/dL (NEGATIVE); URINE LEUKOCYTE ESTERASE NEGATIVE Leu/uL (NEGATIVE); URINE NITRATE NEGATIVE (NEGATIVE); URINE PROTEIN NEGATIVE mg/dL (<30 mg/dL); URINE UROBILINOGEN 0.2 E.U./dL (<1 E.U./dL)
[2016-08-31 10:13] LABS: URINE APPEARANCE CLEAR (CLEAR); URINE COLOR YELLOW (YELLOW)
--- NOTE | 2016-08-31 10:17 | CT ---
PROCEDURE: CT Chest with contrast HISTORY: hemoptysis COMPARISON: None. TECHNIQUE: Contiguous axial images were obtained through the chest with intravenous contrast enhancement. Sagittal and coronal reconstructions were performed. IV contrast: 100 cc of Omni 350 Radiation dose (DLP): 562 mGy-cm. This CT exam was performed using one or more of the following dose reduction techniques: Automated exposure control, adjustment of the mA and/or kV according to patient size, and/or use of iterative reconstruction technique. FINDINGS: LUNGS: Clear lungs. Visualized airway clear. MEDIASTINUM: Unremarkable thoracic aorta. No aneurysm or dissection. Normal sized heart. Main pulmonary artery unremarkable. No vascular congestion. No lymphadenopathy. PLEURA: No pleural fluid. No pneumothorax. BONES: No fracture. No destructive lesion. UPPER ABDOMEN: Grossly unremarkable. OTHER FINDINGS: None. IMPRESSION: Unremarkable contrast enhanced CT of the chest.
--- NOTE | 2016-08-31 11:35 | US ---
PROCEDURE: Right lower extremity venous US HISTORY: Leg pain and swelling. Evaluate for DVT. PHYSICIAN(S): Jasbir Juarez M.D. TECHNIQUE: Duplex sonography and color-flow Doppler with graded compression were used to evaluate the deep venous system of the right lower extremity. FINDINGS: The visualized deep venous system of the right lower extremity is sonographically normal and compressible. Normal waveforms and augmentation are seen. There is no sonographic evidence for deep venous thrombosis in the visualized segments of the right lower extremity. IMPRESSION: 1. No sonographic evidence for deep venous thrombosis in the visualized segments of the right lower extremity.
--- NOTE | 2016-08-31 11:54 | CARD ---
APPROVED REPORT EKG Measurement Heart [id number] <Conclusion> Normal sinus rhythm Possible Left atrial enlargement Left axis deviation IVCD PRWP T wave abnormality, consider lateral ischemia Prolonged QT
[2016-08-31] MEDS ORDERED: Phytonadione 10 mg/ml Inj (Adult) SC ONE (15:07)
[2016-08-31] MEDS ORDERED: Sodium Chloride 0.9% 1,000 ML IV SCH (15:19)
[2016-08-31] MEDS ORDERED: Pneumococcal 23-Valent Vaccine IM ONE (15:54)
[2016-08-31] MEDS ORDERED: Sodium Chloride 0.9% 500 ML IV STA (15:55)
[2016-08-31 16:38] LABS: HEMOGLOBIN 13.8 gm/dL (14.0-18.0); MEAN CELL VOLUME 87.2 fL (80.0-105.0); MEAN CORPUSCULAR HEMOGLOBIN 28.9 pg (25.0-35.0); MEAN CORPUSCULAR HGB CONC 33.2 g/dl (31.0-37.0); MEAN PLATELET VOLUME 11.3 fl (7.0-11.0); PLATELET COUNT 428 10^3/uL (120.0-450.0); RBC 4.77 10^6/uL (3.5-6.1); RED CELL DISTRIBUTION WIDTH 14.6 % (11.5-14.5); WHITE BLOOD COUNT 22.6 10^3/ul (4.5-11.0)
[2016-08-31] MEDS ORDERED: EnalaprilAT 1.25 mg/ml Inj IVP SCH (16:45)
[2016-08-31] MEDS ORDERED: Phenylephrine 10 mg/ml Inj ONE (16:53)
[2016-08-31] MEDS ORDERED: Midazolam 2 MG/2 ML VIAL ONE (16:53)
[2016-08-31] MEDS ORDERED: Etomidate 20 mg/10ml Inj IV ONE (16:53)
[2016-08-31] MEDS ORDERED: Bupivacaine-Epi 0.25%-1:200,000 PF Inj ONE (16:55)
[2016-08-31] MEDS ORDERED: Succinylcholine 200 mg/10 ml Inj IV ONE (16:57)
[2016-08-31] MEDS ORDERED: Propofol 10 mg/ml Inj (20 ML) ONE (17:12)
--- NOTE | 2016-08-31 17:25 | CP.PCM.HP ---
<JAYNE ALDRIDGE - Last Filed: 08/31/16 17:34> History of Present Illness - History of Present Illness History of Present Illness: Medicine History and Physical: Pt is a 40 yo male with pMHx of Factor V Leiden, CHF, and DVT s/p IVC filter presents c/o coughing up blood that began at 5:00am this morning as he was brushing his teeth. He describes the blood as clotted and had several episodes since then. He does not describe any associated pain. Denies any nausea or vomiting. The patient was discharged on 08/23/16 post tonsillectomy. Pt states Coumadin was increased to 7.5mg s/p tonsillectomy. Pt also c/o right foot pain from his right heel and up the lower right calf over the past few days. Work up for right foot pain was negative on last admission. Pt denies n/v/f, CP, SOB, BRBPR, and abdominal pain. PMH: Factor V Leiden def, CHF, DVT s/p IVC filter Meds: Coumadin, Lasix, Lisinopril, insulin Allergies: none FMH: Grandmother- Diabetes, father- heart problems Social Hx: denies tobacco use, current drug use. Occasionally drinks beer Present on Admission - Present on Admission Any Indicators Present on Admission: Yes History of DVT/PE: Yes Review of Systems - Review of Systems All systems: reviewed and no additional remarkable complaints except (HPI) Past Patient History - Infectious Disease Hx of Infectious Diseases: None - Tetanus Immunizations Tetanus Immunization: Up to Date (3 years ago) - Past Medical History & Family History Past Medical History?: Yes Past Family History: Reviewed and not pertinent - Past Social History Smoking Status: Never Smoked Alcohol: Occasional Drugs: Denies - CARDIAC Hx Cardiac Disorders: Yes Hx Congestive Heart Failure: Yes Other/Comment: open heart to left ventricle to remove blood clot, dvt/ivc filter , multiple pe and dvt's, 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 - MUSCULOSKELETAL/RHEUMATOLOGICAL Hx Musculoskeletal Disorders: Yes Hx Falls: No Hx Fractures: Yes (FEMORAL FX ORIF REMOVAL OF HARDWARE) Hx Unsteady Gait: Yes Other/Comment: right orif and hardware removal - GASTROINTESTINAL Hx Gastrointestinal Disorders: Yes Hx Gastroesophageal Reflux: Yes - GENITOURINARY/GYNECOLOGICAL Hx Genitourinary Disorders: Yes Other/Comment: ERECTILE DYSFUNCTION/penile implant - PSYCHIATRIC Hx Psychophysiologic Disorder: No Hx Substance Use: Yes (quit 2 yrs ago) - SURGICAL HISTORY Hx Open Heart Surgery: Yes (remove blot clot 2004) Hx Splenectomy: Yes (2003) Other/Comment: Femur fracture right 2003,DVT IVC FILTER,OPEN HEART SURGERY-CLOT REMOVAL FOR L VENTRICLE 2004, arthoscopic debridement, synovectomy sx for right septic knee joint and left arm picc line insertion, 09/15/2015, splenectomy 2003 , tonsillectomy 13 days ago at [facility] - ANESTHESIA Hx Anesthesia Reactions: No Hx Malignant Hyperthermia: No Meds Allergies/Adverse Reactions: Allergies Allergy/AdvReac Type Severity Reaction Status Date / Time No Known Allergies Allergy Verified 08/02/15 09:41 Physical Exam - Head Exam Head Exam: ATRAUMATIC, NORMAL INSPECTION, NORMOCEPHALIC - Eye Exam Eye Exam: EOMI, Normal appearance, PERRL - ENT Exam Additional comments: Patient with active hemoptysis, Blood present in posterior pharynx, posterior pharynx consistent s/p tonsillectomy - Neck Exam Neck exam: Positive for: Full Rom - Respiratory Exam Respiratory Exam: Clear to Auscultation Bilateral. absent: Rales, Rhonchi, Wheezes - Cardiovascular Exam Cardiovascular Exam: RRR, +S1, +S2. absent: Diastolic murmur, Gallop, Rubs, Systolic Murmur - GI/Abdominal Exam GI & Abdominal Exam: Soft. absent: Distended, Firm, Guarding, Tenderness - Skin Skin Exam: Dry, Intact, Normal Color, Pallor Results - Vital Signs Recent Vital Signs: Last Vital Signs Temp 98.1 F 08/31/16 15:16 Pulse 91 H 08/31/16 16:47 Resp 14 08/31/16 16:47 BP 125/72 08/31/16 16:47 Pulse Ox 98 08/31/16 16:47 - Labs Result Diagrams: 08/31/16 16:30 08/31/16 06:57 Labs: Laboratory Results - last 24 hr 08/31/16 08/31/16 08/31/16 10:00 11:54 16:30 WBC 22.6 H D RBC 4.77 Hgb 13.8 L Hct 41.6 L MCV 87.2 MCH 28.9 MCHC 33.2 RDW 14.6 H Plt Count 428 MPV 11.3 H POC Glucose (mg/dL) 353 H Urine Color Yellow Urine Appearance Clear Urine pH 6.0 Ur Specific [place] 1.025 Urine Protein Negative Urine Glucose (UA) 250 H Urine Ketones Trace H Urine Blood Negative Urine Nitrate Negative Urine Bilirubin Negative Urine Urobilinogen 0.2 Ur Leukocyte Esterase Negative Crossmatch BBK History Checked 08/31/16 16:55 WBC RBC Hgb Hct MCV MCH MCHC RDW Plt Count MPV POC Glucose (mg/dL) Urine Color Urine Appearance Urine pH Ur Specific [place] Urine Protein Urine Glucose (UA) Urine Ketones Urine Blood Urine Nitrate Urine Bilirubin Urine Urobilinogen Ur Leukocyte Esterase Crossmatch See Detail BBK History Checked Patient has bt Assessment & Plan - Assessment and Plan (Free Text) Assessment: 40M with pMHx of factor V Leiden, CHF, and DVT s/p IVC filter admitted for supratherapeutic INR, hemoptysis, and foot pain. 1. Hemoptysis - Hold Coumadin for supratherapeutic INR -ENT consulted: Resident came and evaluated pt at bed side and recommended OR for left posterior oropharyngeal bleeding -Vit K, FFP, ordered -Zofran for nausea 2. Right foot pain -Tramadol when pt can daniel PO 3. IDDM -Decreased home dose from Levemir 20u --> 10u SC due to NPO 4. CHF -Lasix 20mg IVP daily 5. S/p tonsillectomy -Cont cipro and flagyl -ENT consulted 6. GI ppx -Protonix Pt was seen and discussed in detail with Dr. Hutchinson. <Irvin Hutchinson - Last Filed: 09/01/16 07:36> Results - Vital Signs Recent Vital Signs: Last Vital Signs Temp 97.6 F 09/01/16 04:00 Pulse 58 L 09/01/16 05:50 Resp 48 H 09/01/16 05:50 BP 98/53 L 09/01/16 05:00 Pulse Ox 97 09/01/16 05:50 - Labs Result Diagrams: 09/01/16 06:40 09/01/16 04:20 Labs: Laboratory Results - last 24 hr 08/31/16 08/31/16 08/31/16 10:00 11:54 16:30 WBC 22.6 H D RBC 4.77 Hgb 13.8 L Hct 41.6 L MCV 87.2 MCH 28.9 MCHC 33.2 RDW 14.6 H Plt Count 428 MPV 11.3 H Gran % Lymph % (Auto) [place] % (Auto) Eos % (Auto) Baso % (Auto) Gran # Lymph # Powell # Eos # Baso # Neutrophils % (Manual) 75 H Lymphocytes % (Manual) 22 Monocytes % (Manual) 3 Platelet Evaluation Normal Hypochromasia PT INR APTT Sodium Potassium Chloride Carbon Dioxide Anion Gap BUN Creatinine Est GFR ( Amer) Est GFR (Non-Af Amer) POC Glucose (mg/dL) 353 H Random Glucose Calcium Total Bilirubin AST ALT Alkaline Phosphatase Total Protein Albumin Globulin Albumin/Globulin Ratio Urine Color Yellow Urine Appearance Clear Urine pH 6.0 Ur Specific [place] 1.025 Urine Protein Negative Urine Glucose (UA) 250 H Urine Ketones Trace H Urine Blood Negative Urine Nitrate Negative Urine Bilirubin Negative Urine Urobilinogen 0.2 Ur Leukocyte Esterase Negative Blood Type Antibody Screen Crossmatch BBK History Checked 08/31/16 08/31/16 08/31/16 16:55 20:18 20:23 WBC 28.7 H* D RBC 3.85 Hgb 11.4 L Hct 34.1 L MCV 88.6 MCH 29.6 MCHC 33.4 RDW 14.4 Plt Count 390 MPV 11.2 H Gran % Lymph % (Auto) [place] % (Auto) Eos % (Auto) Baso % (Auto) Gran # Lymph # [place] # Eos # Baso # Neutrophils % (Manual) 96 H Lymphocytes % (Manual) 3 L Monocytes % (Manual) 1 Platelet Evaluation Normal Hypochromasia 1+ PT INR APTT Sodium Potassium Chloride Carbon Dioxide Anion Gap BUN Creatinine Est GFR ( Amer) Est GFR (Non-Af Amer) POC Glucose (mg/dL) > 500 H* Random Glucose Calcium Total Bilirubin AST ALT Alkaline Phosphatase Total Protein Albumin Globulin Albumin/Globulin Ratio Urine Color Urine Appearance Urine pH Ur Specific [place] Urine Protein Urine Glucose (UA) Urine Ketones Urine Blood Urine Nitrate Urine Bilirubin Urine Urobilinogen Ur Leukocyte Esterase Blood Type B POSITIVE Antibody Screen Negative Crossmatch See Detail BBK History Checked Patient has bt 08/31/16 08/31/16 09/01/16 20:23 22:17 00:20 WBC RBC Hgb 10.8 L Hct 32.2 L MCV MCH MCHC RDW Plt Count MPV Gran % Lymph % (Auto) Powell % (Auto) Eos % (Auto) Baso % (Auto) Gran # Lymph # Powell # Eos # Baso # Neutrophils % (Manual) Lymphocytes % (Manual) Monocytes % (Manual) Platelet Evaluation Hypochromasia PT 21.2 H INR 1.96 H APTT 36.9 H Sodium Potassium Chloride Carbon Dioxide Anion Gap BUN Creatinine Est GFR ( Amer) Est GFR (Non-Af Amer) POC Glucose (mg/dL) 488 H* Random Glucose Calcium Total Bilirubin AST ALT Alkaline Phosphatase Total Protein Albumin Globulin Albumin/Globulin Ratio Urine Color Urine Appearance Urine pH Ur Specific [place] Urine Protein Urine Glucose (UA) Urine Ketones Urine Blood Urine Nitrate Urine Bilirubin Urine Urobilinogen Ur Leukocyte Esterase Blood Type Antibody Screen Crossmatch BBK History Checked 09/01/16 09/01/16 09/01/16 04:20 04:20 04:20 WBC RBC Hgb 11.1 L Hct 33.1 L MCV MCH MCHC RDW Plt Count MPV Gran % Lymph % (Auto) Powell % (Auto) Eos % (Auto) Baso % (Auto) Gran # Lymph # [place] # Eos # Baso # Neutrophils % (Manual) Lymphocytes % (Manual) Monocytes % (Manual) Platelet Evaluation Hypochromasia PT 24.8 H INR 2.30 H APTT 39.2 H Sodium 133 Potassium 5.1 H Chloride 95 Carbon Dioxide 27 Anion Gap 16 BUN 24 H Creatinine 0.7 Est GFR ( Amer) > 60 Est GFR (Non-Af Amer) > 60 POC Glucose (mg/dL) Random Glucose 327 H* Calcium 9.5 Total Bilirubin 0.9 AST 24 ALT 37 Alkaline Phosphatase 115 Total Protein 5.7 L Albumin 3.7 Globulin 2.0 Albumin/Globulin Ratio 1.9 H Urine Color Urine Appearance Urine pH Ur Specific [place] Urine Protein Urine Glucose (UA) Urine Ketones Urine Blood Urine Nitrate Urine Bilirubin Urine Urobilinogen Ur Leukocyte Esterase Blood Type Antibody Screen Crossmatch BBK History Checked 09/01/16 06:40 WBC 19.4 H D RBC 3.87 Hgb 11.3 L Hct 33.5 L MCV 86.6 MCH 29.2 MCHC 33.7 RDW 14.2 Plt Count 427 MPV 12.1 H Gran % 89.7 H Lymph % (Auto) 7.9 L [place] % (Auto) 2.3 Eos % (Auto) 0.0 L Baso % (Auto) 0.1 Gran # 17.38 H Lymph # 1.5 Powell # 0.5 Eos # 0.0 Baso # 0.01 Neutrophils % (Manual) Lymphocytes % (Manual) Monocytes % (Manual) Platelet Evaluation Hypochromasia PT INR APTT Sodium Potassium Chloride Carbon Dioxide Anion Gap BUN Creatinine Est GFR ( Amer) Est GFR (Non-Af Amer) POC Glucose (mg/dL) Random Glucose Calcium Total Bilirubin AST ALT Alkaline Phosphatase Total Protein Albumin Globulin Albumin/Globulin Ratio Urine Color Urine Appearance Urine pH Ur Specific [place] Urine Protein Urine Glucose (UA) Urine Ketones Urine Blood Urine Nitrate Urine Bilirubin Urine Urobilinogen Ur Leukocyte Esterase Blood Type Antibody Screen Crossmatch BBK History Checked Attending/Attestation - Attestation I have personally seen and examined this patient.: Yes I have fully participated in the care of the patient.: Yes I have reviewed all pertinent clinical information: Yes Notes (Text): 08/31/16 40 year old male with past medical history of CHF, DVT s/p IVC filter, factor V Leiden and history of recent tonsillectomy who presents with complaint of hemoptysis since this morning. He was found to have supratherepeutic INR. He was given vitamin K and admitted to telemetry unit. This afternoon he began to have severe hemoptysis/hematemesis. He was given FFP. ICU and ENT evaluation were requested. I spoke with it program engagement director and ENT attending; patient will be going to have OR now. I spoke with occupational therapy teacher as well. Will hold lasix for now and give gentle fluids. Continue NPO and iv protonix. Continue with zofran prn. Continue with antibiotics. He complains of right foot pain of uncertain etiology. Exam in negative for erythema or swelling. Recent xrays were negative. Continue with levemir and insulin ss for diabetes. Irvin Hutchinson MD Hospitalist.
[2016-08-31 17:28] LABS: LYMPHOCYTE 22 % (22.0-35.0); MONOCYTE 3 % (1.0-6.0); NEUTROPHIL 75 % (50.0-70.0); PLATELET ESTIMATE NORMAL (NORMAL)
[2016-08-31] MEDS ORDERED: Insulin Regular 100 units/ml ONE (18:52)
[2016-08-31] MEDS ORDERED: Insulin Regular 1 UNITS/0.01 ML ML SC ONE (18:55)
[2016-08-31] MEDS ORDERED: Insulin Regular 1 UNITS/0.01 ML ML SC STA ×2 (18:57→21:02)
--- NOTE | 2016-08-31 19:11 | CP.PCM.PN ---
Subjective - Date & Time of Evaluation Date of Evaluation: 08/31/16 Time of Evaluation: 18:45 - Subjective Subjective: 40 y/o M w/ PMHX of Factor 5 Def, VTE w/ Cardiomyopathy who had a recent tonsilectomy . Presented [facility] 13 day after with alexander Upper airway bleeding. Appx 1L. Emergently taken to the OR by ENT. Found to have bleeding at the post op site. Bleeding site wa controlled. In PACU , without distress , talking and in no respiratory distress. Objective - Vital Signs/Intake and Output Vital Signs (last 24 hours): Temp Pulse Resp BP Pulse Ox 99 F 98 H 18 100/52 L 97 08/31/16 18:50 08/31/16 18:50 08/31/16 18:50 08/31/16 18:50 08/31/16 18:50 - Medications Medications: Current Medications Sodium Chloride (Sodium Chloride 0.9%) 1,000 mls @ 40 mls/hr IV .Q24H [facility] Last Admin: 08/31/16 15:33 Dose: 40 mls/hr Ciprofloxacin (Cipro 400mg/200ml Dsw) 400 mg in 200 mls @ 133.3 mls/hr IVPB Q12 LA PRN Reason: Protocol Stop: 08/31/16 23:31 Ceftriaxone Sodium (Rocephin 1 Gram Ivpb) 1 gm in 100 mls @ 100 mls/hr IVPB DAILY LA PRN Reason: Protocol Insulin Detemir (Levemir) 10 unit SC HS [facility] Ondansetron HCl (Zofran Inj) 4 mg IVP Q6H PRN PRN Reason: Nausea/Vomiting Pantoprazole Sodium (Protonix Inj) 40 mg IVP DAILY [facility] Last Admin: 08/31/16 15:27 Dose: 40 mg Tramadol HCl (Ultram) 50 mg PO TID PRN PRN Reason: Pain, moderate (4-7) - Labs Labs: 08/31/16 16:30 PT 47.8 Seconds (9.9-11.8) H* 08/31/16 06:57 INR 4.43 (0.93-1.08) H* 08/31/16 06:57 APTT 49.7 Seconds (23.7-30.8) H 08/31/16 06:57 - Constitutional Appears: Well - Head Exam Head Exam: ATRAUMATIC, NORMAL INSPECTION - Eye Exam Eye Exam: EOMI, Normal appearance Pupil Exam: NORMAL ACCOMODATION - ENT Exam ENT Exam: Mucous Membranes Moist, Normal Exam - Neck Exam Neck Exam: Normal Inspection - Respiratory Exam Respiratory Exam: Clear to Ausculation Bilateral, NORMAL BREATHING PATTERN - Cardiovascular Exam Cardiovascular Exam: REGULAR RHYTHM - GI/Abdominal Exam GI & Abdominal Exam: Normal Bowel Sounds - Rectal Exam Rectal Exam: NORMAL INSPECTION - Exam Exam: NORMAL INSPECTION - Extremities Exam Extremities Exam: Full ROM, Normal Inspection - Neurological Exam Neurological Exam: Alert, Awake, CN II-XII Intact, Oriented x3 Assessment and Plan - Assessment and Plan (Free Text) Assessment: 40 y/o M w/ Upper airway bleeding from post op Tonsilectomy site Bleeding controlled by ENT. INR reversal w/ 4 units FFP keep INR< 2. Does have factor 5 DEF and VTE hx , will need to restart anticoagulation within 24 hrs if bleeding is controlled. CHF hx w/ EF < 20% . After FFP , monitor for need of Lasix for resp distress HEMo following, ENt following. Pain controll. SCD PPI cc time 55 min
[2016-08-31 20:30] LABS: HEMOGLOBIN 11.4 gm/dL (14.0-18.0); MEAN CELL VOLUME 88.6 fL (80.0-105.0); MEAN CORPUSCULAR HEMOGLOBIN 29.6 pg (25.0-35.0); MEAN CORPUSCULAR HGB CONC 33.4 g/dl (31.0-37.0); MEAN PLATELET VOLUME 11.2 fl (7.0-11.0); PLATELET COUNT 390 10^3/uL (120.0-450.0); RBC 3.85 10^6/uL (3.5-6.1); RED CELL DISTRIBUTION WIDTH 14.4 % (11.5-14.5)
[2016-08-31 20:34] LABS: WHITE BLOOD COUNT 28.7 10^3/ul (4.5-11.0)
[2016-08-31 20:42] LABS: INR 1.96 (0.93-1.08); PARTIAL THROMBOPLASTIN TIME 36.9 Seconds (23.7-30.8); PROTHROMBIN TIME 21.2 Seconds (9.9-11.8)
--- NOTE | 2016-08-31 20:53 | CP.PCM.PN ---
Subjective - Date & Time of Evaluation Date of Evaluation: 08/31/16 Time of Evaluation: 20:46 Objective - Vital Signs/Intake and Output Vital Signs (last 24 hours): Temp Pulse Resp BP Pulse Ox 99.3 F 100 H 17 94/53 L 97 08/31/16 19:05 08/31/16 19:05 08/31/16 19:05 08/31/16 19:05 08/31/16 19:05 - Medications Medications: Current Medications Sodium Chloride (Sodium Chloride 0.9%) 1,000 mls @ 40 mls/hr IV .Q24H [facility] Last Admin: 08/31/16 15:33 Dose: 40 mls/hr Ciprofloxacin (Cipro 400mg/200ml Dsw) 400 mg in 200 mls @ 133.3 mls/hr IVPB Q12 [facility] PRN Reason: Protocol Stop: 08/31/16 23:31 Ceftriaxone Sodium (Rocephin 1 Gram Ivpb) 1 gm in 100 mls @ 100 mls/hr IVPB DAILY [facility] PRN Reason: Protocol Insulin Detemir (Levemir) 10 unit SC HS [facility] Ondansetron HCl (Zofran Inj) 4 mg IVP Q6H PRN PRN Reason: Nausea/Vomiting Oxycodone/Acetaminophen (Percocet 5/325 Mg Tab) 1 tab PO Q4H PRN PRN Reason: Pain, Mild (1-3) Stop: 09/03/16 20:46 Pantoprazole Sodium (Protonix Inj) 40 mg IVP DAILY [facility] Last Admin: 08/31/16 15:27 Dose: 40 mg Tramadol HCl (Ultram) 50 mg PO TID PRN PRN Reason: Pain, moderate (4-7) - Labs Labs: 08/31/16 20:23 PT 21.2 Seconds (9.9-11.8) H 08/31/16 20:23 INR 1.96 (0.93-1.08) H 08/31/16 20:23 APTT 36.9 Seconds (23.7-30.8) H 08/31/16 20:23
[2016-08-31] MEDS: Oxycodone/Acetaminophen 5/325 mg Tab PO PRN (20:54)
[2016-08-31 21:13] LABS: HYPOCHROMIA 1+; LYMPHOCYTE 3 % (22.0-35.0); MONOCYTE 1 % (1.0-6.0); NEUTROPHIL 96 % (50.0-70.0); PLATELET ESTIMATE NORMAL (NORMAL)
[2016-08-31] MEDS ORDERED: Insulin Detemir 100 units/ml Vial (Levemir) SC SCH (22:00)
[2016-08-31] MEDS ORDERED: Ciprofloxacin 400mg/200ml D5W 400 MG/200 ML BAG IVPB SCH (22:00)
[2016-09-01 00:42] LABS: HEMOGLOBIN 10.8 gm/dL (14.0-18.0)
[2016-09-01 04:52] LABS: HEMOGLOBIN 11.1 gm/dL (14.0-18.0)
[2016-09-01 05:50] LABS: INR 2.3 (0.93-1.08); PARTIAL THROMBOPLASTIN TIME 39.2 Seconds (23.7-30.8); PROTHROMBIN TIME 24.8 Seconds (9.9-11.8)
[2016-09-01 05:51] LABS: ALB/GLOB RATIO 1.9 (1.1-1.8); ALBUMIN 3.7 g/dL (3.0-4.8); ALT/SGPT 37 U/L (7-56); AST/SGOT 24 U/L (15-59); BLOOD UREA NITROGEN 24 mg/dL (7-21); CALCIUM 9.5 mg/dL (8.4-10.5); GFR AFRICAN-AMERICAN > 60; GFR NON-AFRICAN AMERICAN > 60
[2016-09-01] MEDS: Oxycodone/Acetaminophen 5/325 mg Tab PO PRN ×4 (06:29→21:35)
[2016-09-01 06:51] LABS: BASO # 0.01 K/mm3 (0.0-2.0); BASO % 0.1 % (0.0-3.0); GRAN # 17.38 (1.4-6.5); GRAN % 89.7 % (50.0-68.0); HEMOGLOBIN 11.3 gm/dL (14.0-18.0); LYMPH # 1.5 (1.2-3.4); LYMPH % 7.9 % (22.0-35.0); MEAN CELL VOLUME 86.6 fL (80.0-105.0); MEAN CORPUSCULAR HEMOGLOBIN 29.2 pg (25.0-35.0); MEAN CORPUSCULAR HGB CONC 33.7 g/dl (31.0-37.0); MEAN PLATELET VOLUME 12.1 fl (7.0-11.0); MONO # 0.5 (0.1-0.6); MONO % 2.3 % (1.0-6.0); PLATELET COUNT 427 10^3/uL (120.0-450.0); RBC 3.87 10^6/uL (3.5-6.1); RED CELL DISTRIBUTION WIDTH 14.2 % (11.5-14.5); WHITE BLOOD COUNT 19.4 10^3/ul (4.5-11.0)
--- NOTE | 2016-09-01 06:55 | CP.PCM.PN ---
<TYSON SONI - Last Filed: 09/01/16 13:22> Subjective - Date & Time of Evaluation Date of Evaluation: 09/01/16 Time of Evaluation: 06:52 - Subjective Subjective: PGY1 ICU Progress note: Patient seen and examined at bedside. No acute events overnight. Denies headache , blurry vision, n/v/d, hemoptysis, cp, sob, abdominal pain. Tolerating clear liquid diet well, will advance diet today. Objective - Vital Signs/Intake and Output Vital Signs (last 24 hours): Temp Pulse Resp BP Pulse Ox 97.6 F 58 L 48 H 98/53 L 97 09/01/16 04:00 09/01/16 05:50 09/01/16 05:50 09/01/16 05:00 09/01/16 05:50 Intake and Output: 08/31/16 09/01/16 18:59 06:59 Intake Total 1850 Output Total 1700 Balance 150 - Medications Medications: Current Medications Sodium Chloride (Sodium Chloride 0.9%) 1,000 mls @ 40 mls/hr IV .Q24H [facility] Last Admin: 08/31/16 15:33 Dose: 40 mls/hr Ceftriaxone Sodium (Rocephin 1 Gram Ivpb) 1 gm in 100 mls @ 100 mls/hr IVPB DAILY [facility] PRN Reason: Protocol Insulin Detemir (Levemir) 10 unit SC HS [facility] Last Admin: 08/31/16 21:48 Dose: 10 unit Ondansetron HCl (Zofran Inj) 4 mg IVP Q6H PRN PRN Reason: Nausea/Vomiting Oxycodone/Acetaminophen (Percocet 5/325 Mg Tab) 1 tab PO Q4H PRN PRN Reason: Pain, Mild (1-3) Stop: 09/03/16 20:46 Last Admin: 09/01/16 06:29 Dose: 1 tab Pantoprazole Sodium (Protonix Inj) 40 mg IVP DAILY [facility] Last Admin: 08/31/16 15:27 Dose: 40 mg Tramadol HCl (Ultram) 50 mg PO TID PRN PRN Reason: Pain, moderate (4-7) - Labs Labs: 09/01/16 04:20 09/01/16 04:20 PT 24.8 Seconds (9.9-11.8) H 09/01/16 04:20 INR 2.30 (0.93-1.08) H 09/01/16 04:20 APTT 39.2 Seconds (23.7-30.8) H 09/01/16 04:20 - Constitutional Appears: Well, No Acute Distress - Head Exam Head Exam: ATRAUMATIC, NORMOCEPHALIC - Eye Exam Eye Exam: Normal appearance, PERRL - ENT Exam ENT Exam: Mucous Membranes Moist, Normal Exam - Neck Exam Neck Exam: absent: Lymphadenopathy, Tenderness - Respiratory Exam Respiratory Exam: Clear to Ausculation Bilateral, NORMAL BREATHING PATTERN - Cardiovascular Exam Cardiovascular Exam: REGULAR RHYTHM, RRR, +S1, +S2. absent: Gallop, Rubs, Murmur - GI/Abdominal Exam GI & Abdominal Exam: Soft, Normal Bowel Sounds. absent: Distended, Tenderness, Rebound - Extremities Exam Extremities Exam: Tenderness. absent: Calf Tenderness Additional comments: R lateral malleolus and lower gleason tenderness noted, no erythema, swelling. - Skin Skin Exam: Dry, Intact, Warm Assessment and Plan - Assessment and Plan (Free Text) Assessment: 40 y/o M s/p surgery to control upper airway bleeding from post op tonsillectomy site, admitted to ICU for monitoring of upper airway. Plan: Neuro: AAOx3. No mental status changes. CV: SR, mildly hypotensive BP 76-100/33-52, encourage fluid intake and will advance diet today. cont to monitor Resp: On RA. Upper airway bleeding controlled by ENT surgery. Cont to monitor for resp distress. Heme: Hgb dropped 14.7-->11.1 since admission d/t acute bleed. Cont to monitor. INR 4.43 on admission, s/p 4 units FFP. INR 2.3 today, therapeutic. Resume TAC as per primary team. ID: Afebrile, leukocytosis/ C/w rocephin. cont to monitor. Nephro: BUN/Cr 24/0.7. UO adequate. Cont to monitor. K 5.1 today. Kayexalate given. Endo: Hyperglycemic BS [id number], on levemir and ISS. Obtain and start home insulin regimen. GI: tolerating CLD, will advance to altered gi/hepatic diet today. DVT ppx: SCDs GI ppx: PPI Case discussed and reviewed with PGY2 and attending, Dr. Conway. Tyson Soni, PGY1 <Aaron Conway - Last Filed: 09/01/16 17:03> Objective - Vital Signs/Intake and Output Vital Signs (last 24 hours): Temp Pulse Resp BP Pulse Ox 97.7 F 82 17 99/52 L 98 09/01/16 16:00 09/01/16 16:00 09/01/16 16:00 09/01/16 16:00 09/01/16 16:00 Intake and Output: 09/01/16 09/01/16 06:59 18:59 Intake Total 1850 Output Total 1700 Balance 150 - Medications Medications: Current Medications Sodium Chloride (Sodium Chloride 0.9%) 1,000 mls @ 40 mls/hr IV .Q24H [facility] Last Admin: 08/31/16 15:33 Dose: 40 mls/hr Ceftriaxone Sodium (Rocephin 1 Gram Ivpb) 1 gm in 100 mls @ 100 mls/hr IVPB DAILY [facility] PRN Reason: Protocol Last Admin: 09/01/16 09:16 Dose: Not Given Insulin Detemir (Levemir) 20 unit SC [facility] Insulin Human Lispro (Humalog Med) 0 units SC ACHS [facility] PRN Reason: Protocol Last Admin: 09/01/16 12:29 Dose: 10 units Insulin Lispro Protam/Lispro Human (Humalog Mix 75/25) 30 units SC ACHS [facility] Ondansetron HCl (Zofran Inj) 4 mg IVP Q6H PRN PRN Reason: Nausea/Vomiting Oxycodone/Acetaminophen (Percocet 5/325 Mg Tab) 1 tab PO Q4H PRN PRN Reason: Pain, Mild (1-3) Stop: 09/03/16 20:46 Last Admin: 09/01/16 12:25 Dose: 1 tab Pantoprazole Sodium (Protonix Inj) 40 mg IVP DAILY [facility] Last Admin: 09/01/16 09:16 Dose: Not Given Tramadol HCl (Ultram) 50 mg PO TID PRN PRN Reason: Pain, moderate (4-7) - Labs Labs: 09/01/16 06:40 09/01/16 04:20 PT 24.8 Seconds (9.9-11.8) H 09/01/16 04:20 INR 2.30 (0.93-1.08) H 09/01/16 04:20 APTT 39.2 Seconds (23.7-30.8) H 09/01/16 04:20 Attending/Attestation - Attestation I have personally seen and examined this patient.: Yes I have fully participated in the care of the patient.: Yes I have reviewed all pertinent clinical information, including history, physical exam and plan: Yes Notes (Text): 09/01/16 17:00 40 yo with recent tonsillectomy who presented with postop bleed, which stopped overnight. Able to protect airways, hemodynamically stable. No respiratory or otherwise distress. ok to downgrade to remote tele. ccm time 40 min
[2016-09-01] MEDS ORDERED: Insulin Regular 1 UNITS/0.01 ML ML SC STA (07:52)
[2016-09-01] MEDS: cefTRIAXone 1 gm 1 GM/100 ML BAG IVPB SCH ×2 (08:33→09:16)
--- NOTE | 2016-09-01 08:40 | RAD ---
HISTORY: sob COMPARISON: 08/31/2016 FINDINGS: LUNGS: No active pulmonary disease. PLEURA: No significant pleural effusion identified, no pneumothorax apparent. CARDIOVASCULAR: Normal heart size. Sternotomy wires. No congestive change. OSSEOUS STRUCTURES: No significant abnormalities. VISUALIZED UPPER ABDOMEN: Normal. OTHER FINDINGS: None. IMPRESSION: No active disease.
[2016-09-01] MEDS ORDERED: Sod Polystyrene Sulf 15 gm/60 ml Oral Susp PO ONE ×2 (10:09→12:44)
[2016-09-01] MEDS: Insulin Lispro (humaLOG) MEDIUM Coverage SC SCH ×3 (12:29→22:40)
[2016-09-01] MEDS ORDERED: Insulin Detemir 100 units/ml Vial (Levemir) SC SCH (12:33)
[2016-09-01] MEDS ORDERED: Insulin Lispro (humaLOG) MIX 75/25(10 ml) SC ONE (13:20)
[2016-09-01] MEDS ORDERED: Insulin Lispro (humaLOG) MIX 75/25(10 ml) SC SCH (13:30)
[2016-09-01] MEDS: Insulin Lispro (humaLOG) MIX 75/25(10 ml) SC SCH ×2 (17:00→22:58)
[2016-09-01] MEDS ORDERED: Insulin Regular 1 UNITS/0.01 ML ML IV ONE (18:08)
--- NOTE | 2016-09-01 18:27 | CP.PCM.PCO ---
Physician Communication Note - Physician Communication Note Physician Communication Note: Refer to attached note for summary
--- NOTE | 2016-09-01 19:27 | CP.PCM.PN ---
<JAYNE ALDRIDGE - Last Filed: 09/01/16 19:24> Subjective - Date & Time of Evaluation Date of Evaluation: 09/01/16 Time of Evaluation: 09:40 - Subjective Subjective: Pt was seen and examined at bedside. Pt denies any acute overnight events s/p tonsillectomy bleed repair. Pt reports minor soreness in throat. Pt denies any further hemoptysis or hematemesis. Pt reports that right foot pain is unchanged. Pt denies n/v/f, SOB, CP, abdominal pain. Objective - Vital Signs/Intake and Output Vital Signs (last 24 hours): Temp Pulse Resp BP Pulse Ox 97.7 F 79 18 99/52 L 98 09/01/16 16:00 09/01/16 18:20 09/01/16 18:20 09/01/16 16:00 09/01/16 16:00 Intake and Output: 09/01/16 09/02/16 18:59 06:59 Intake Total 2500 Output Total 3900 Balance -1400 - Medications Medications: Current Medications Ceftriaxone Sodium (Rocephin 1 Gram Ivpb) 1 gm in 100 mls @ 100 mls/hr IVPB DAILY [facility] PRN Reason: Protocol Last Admin: 09/01/16 09:16 Dose: Not Given Insulin Detemir (Levemir) 20 unit SC [facility] Insulin Human Lispro (Humalog Med) [address] [facility] PRN Reason: Protocol Last Admin: 09/01/16 17:00 Dose: 10 units Insulin Lispro Protam/Lispro Human (Humalog Mix 75/25) [address] [facility] Last Admin: 09/01/16 17:00 Dose: 30 unit Ondansetron HCl (Zofran Inj) 4 mg IVP Q6H PRN PRN Reason: Nausea/Vomiting Oxycodone/Acetaminophen (Percocet 5/325 Mg Tab) 1 tab PO Q4H PRN PRN Reason: Pain, Mild (1-3) Stop: 09/03/16 20:46 Last Admin: 09/01/16 17:04 Dose: 1 tab Pantoprazole Sodium (Protonix Inj) 40 mg IVP DAILY [facility] Last Admin: 09/01/16 09:16 Dose: Not Given Tramadol HCl (Ultram) 50 mg PO TID PRN PRN Reason: Pain, moderate (4-7) - Labs Labs: 09/01/16 06:40 09/01/16 04:20 PT 24.8 Seconds (9.9-11.8) H 09/01/16 04:20 INR 2.30 (0.93-1.08) H 09/01/16 04:20 APTT 39.2 Seconds (23.7-30.8) H 09/01/16 04:20 - Constitutional Appears: No Acute Distress - Head Exam Head Exam: ATRAUMATIC, NORMAL INSPECTION, NORMOCEPHALIC - Eye Exam Eye Exam: EOMI, Normal appearance, PERRL - ENT Exam ENT Exam: Mucous Membranes Moist - Neck Exam Neck Exam: Full ROM - Respiratory Exam Respiratory Exam: Clear to Ausculation Bilateral. absent: Rales, Rhonchi, Wheezes - Cardiovascular Exam Cardiovascular Exam: RRR, +S1, +S2. absent: Gallop, Rubs, Murmur - GI/Abdominal Exam GI & Abdominal Exam: Soft. absent: Firm, Guarding, Rigid, Tenderness - Extremities Exam Extremities Exam: Full ROM Additional comments: right foot tenderness - Neurological Exam Neurological Exam: Alert, Awake, Oriented x3 - Skin Skin Exam: Dry, Normal Color, Pallor, Warm Assessment and Plan - Assessment and Plan (Free Text) Assessment: 40M with pMHx of factor V Leiden, CHF, and DVT s/p IVC filter admitted for supratherapeutic INR, hemoptysis, and foot pain. 1. Hemoptysis s/p tonsillectomy bleed repair -Discussed resuming Coumadin with Dr. Brewster, hold for now, possibly resume tomorrow -ENT consulted: s/p tonsillectomy bleed repair -3 units of FFP given paraoperatively -Rocephin 1g -Percocet prn pain -Zofran for nausea 2. Right foot pain -Tramadol prn pain 3. IDDM -Increased Levemir from 10u to 20u due to resuming diet -Humalog 75/25 ACHS 30u/30u -Humalog ISS -Changed diet from CLD to soft consistent carb diet 4. CHF -Hold Lasix 20mg IVP daily 5. GI ppx -Protonix Pt was seen and discussed in detail with Dr. Hutchinson. <Irvin Hutchinson - Last Filed: 09/02/16 07:01> Objective - Vital Signs/Intake and Output Vital Signs (last 24 hours): Temp Pulse Resp BP Pulse Ox 97.7 F 64 18 99/52 L 98 09/01/16 16:00 09/02/16 04:56 09/01/16 18:20 09/01/16 16:00 09/01/16 16:00 Intake and Output: 09/01/16 09/02/16 18:59 06:59 Intake Total 2500 120 Output Total 3900 Balance -1400 120 - Medications Medications: Current Medications Enoxaparin Sodium (Lovenox) 80 mg SC Q12H [facility] PRN Reason: Protocol Ceftriaxone Sodium (Rocephin 1 Gram Ivpb) 1 gm in 100 mls @ 100 mls/hr IVPB DAILY [facility] PRN Reason: Protocol Last Admin: 09/01/16 09:16 Dose: Not Given Insulin Detemir (Levemir) 20 unit SC HS [facility] Last Admin: 09/01/16 23:30 Dose: 20 unit Insulin Human Lispro (Humalog Low) 0 units SC ACHS [facility] PRN Reason: Protocol Insulin Lispro Protam/Lispro Human (Humalog Mix 75/25) 40 units SC [facility] Insulin Lispro Protam/Lispro Human (Humalog Mix 75/25) 30 units SC [facility] Ondansetron HCl (Zofran Inj) 4 mg IVP Q6H PRN PRN Reason: Nausea/Vomiting Oxycodone/Acetaminophen (Percocet 5/325 Mg Tab) 1 tab PO Q4H PRN PRN Reason: Pain, Mild (1-3) Stop: 09/03/16 20:46 Last Admin: 09/02/16 06:10 Dose: 1 tab Pantoprazole Sodium (Protonix Inj) 40 mg IVP DAILY [facility] Last Admin: 09/01/16 09:16 Dose: Not Given Tramadol HCl (Ultram) 50 mg PO TID PRN PRN Reason: Pain, moderate (4-7) - Labs Labs: 09/01/16 06:40 09/01/16 04:20 PT 24.8 Seconds (9.9-11.8) H 09/01/16 04:20 INR 2.30 (0.93-1.08) H 09/01/16 04:20 APTT 39.2 Seconds (23.7-30.8) H 09/01/16 04:20 Attending/Attestation - Attestation I have personally seen and examined this patient.: Yes I have fully participated in the care of the patient.: Yes I have reviewed all pertinent clinical information, including history, physical exam and plan: Yes Notes (Text): 09/01/16 40 year old male with past medical history of CHF, DVT s/p IVC filter, factor V Leiden and history of recent tonsillectomy who presented with complaint of hemoptysis; also found to have supratherepeutic INR. He was given vitamin K and FFP. On the floor he began to have severe hemoptysis/hematemesis and taken to OR by ENT to control the bleeding. He was transferred to ICU postoperatively. His hemoptysis has resolved since. His INR has come down as did his hemoglobin which is now stable. Case was discussed with flat lock machine operator who recommended to hold coumadin today, possibly to resume it tomorrow based on INR and symptoms. Will advance his diet as tolerated. Continue with antibiotics. Monitor closely for recurrence of symptoms. He is on tramadol prn for pain. Recent xrays were negative. He has been hyperglycemic since last night and his home insulin regimen will be resumed. Patient is being transferred from ICU today. Irvin Hutchinson MD Hospitalist.
[2016-09-01] MEDS: Insulin Detemir 100 units/ml Vial (Levemir) SC SCH ×2 (22:58→23:30)
[2016-09-02] MEDS: Oxycodone/Acetaminophen 5/325 mg Tab PO PRN ×4 (06:10→19:36)
[2016-09-02] MEDS ORDERED: Insulin Lispro (HUMAlog) HIGH Coverage SC SCH (07:30)
[2016-09-02 08:13] LABS: BASO # 0.06 K/mm3 (0.0-2.0); BASO % 0.4 % (0.0-3.0); EOS % 0.3 % (1.5-5.0); GRAN # 9.82 (1.4-6.5); GRAN % 61.7 % (50.0-68.0); HEMOGLOBIN 10.7 gm/dL (14.0-18.0); LYMPH # 4.2 (1.2-3.4); LYMPH % 26.5 % (22.0-35.0); MEAN CELL VOLUME 87.2 fL (80.0-105.0); MEAN CORPUSCULAR HEMOGLOBIN 28.6 pg (25.0-35.0); MEAN CORPUSCULAR HGB CONC 32.8 g/dl (31.0-37.0); MEAN PLATELET VOLUME 11.4 fl (7.0-11.0); MONO # 1.8 (0.1-0.6); MONO % 11.1 % (1.0-6.0); PLATELET COUNT 416 10^3/uL (120.0-450.0); RBC 3.74 10^6/uL (3.5-6.1); RED CELL DISTRIBUTION WIDTH 14.8 % (11.5-14.5); WHITE BLOOD COUNT 15.9 10^3/ul (4.5-11.0)
[2016-09-02 08:19] LABS: INR 1.54 (0.93-1.08); PROTHROMBIN TIME 16.6 Seconds (9.9-11.8)
[2016-09-02 08:24] LABS: ALB/GLOB RATIO 1.7 (1.1-1.8); ALBUMIN 3.6 g/dL (3.0-4.8); ALT/SGPT 33 U/L (7-56); AST/SGOT 26 U/L (15-59); BLOOD UREA NITROGEN 21 mg/dL (7-21); GFR AFRICAN-AMERICAN > 60; GFR NON-AFRICAN AMERICAN > 60; HDL CHOLESTEROL 39 mg/dL (29-60)
[2016-09-02 08:35] LABS: LDL CHOLESTEROL 91 mg/dL (0-129)
[2016-09-02] MEDS: Enoxaparin 80 mg Syringe SC SCH ×2 (09:15→22:21)
[2016-09-02] MEDS: cefTRIAXone 1 gm 1 GM/100 ML BAG IVPB SCH (09:15)
[2016-09-02] MEDS: Insulin Lispro (humaLOG) LOW Coverage SC SCH ×4 (09:16→22:15)
[2016-09-02] MEDS: Insulin Lispro (humaLOG) MIX 75/25(10 ml) SC SCH (09:16)
[2016-09-02 13:00] LABS: CORTISOL AM 1.7 ug/dL (4.46-22.7)
--- NOTE | 2016-09-02 13:58 | CP.PCM.PN ---
<Bharath Jasso - Last Filed: 09/02/16 13:51> Subjective - Date & Time of Evaluation Date of Evaluation: 09/02/16 Time of Evaluation: 07:30 - Subjective Subjective: Medicine progress note: Pt seen and examined at bedside. No acute events overnight. Pt denies any episodes of hemoptysis. On soft diet. Denies any f/c, sob, cp, abd pain, n/v/d. Objective - Vital Signs/Intake and Output Vital Signs (last 24 hours): Temp Pulse Resp BP Pulse Ox 98.1 F 68 20 99/65 L 97 09/02/16 08:45 09/02/16 08:45 09/02/16 08:45 09/02/16 08:45 09/02/16 08:45 Intake and Output: 09/02/16 09/02/16 06:59 18:59 Intake Total 120 Balance 120 - Medications Medications: Current Medications Enoxaparin Sodium (Lovenox) 80 mg SC Q12H [facility] PRN Reason: Protocol Last Admin: 09/02/16 09:15 Dose: 80 mg Ceftriaxone Sodium (Rocephin 1 Gram Ivpb) 1 gm in 100 mls @ 100 mls/hr IVPB DAILY [facility] PRN Reason: Protocol Last Admin: 09/02/16 09:15 Dose: 100 mls/hr Insulin Detemir (Levemir) 20 unit SC HS [facility] Last Admin: 09/01/16 23:30 Dose: 20 unit Insulin Human Lispro (Humalog Low) 0 units SC ACHS [facility] PRN Reason: Protocol Last Admin: 09/02/16 11:58 Dose: Not Given Insulin Lispro Protam/Lispro Human (Humalog Mix 75/25) 40 units SC ACB [facility] Last Admin: 09/02/16 09:16 Dose: 40 units Insulin Lispro Protam/Lispro Human (Humalog Mix 75/25) 30 units SC ACD [facility] Ondansetron HCl (Zofran Inj) 4 mg IVP Q6H PRN PRN Reason: Nausea/Vomiting Oxycodone/Acetaminophen (Percocet 5/325 Mg Tab) 1 tab PO Q4H PRN PRN Reason: Pain, Mild (1-3) Stop: 09/03/16 20:46 Last Admin: 09/02/16 10:45 Dose: 1 tab Pantoprazole Sodium (Protonix Inj) 40 mg IVP DAILY [facility] Last Admin: 09/02/16 09:15 Dose: 40 mg Tramadol HCl (Ultram) 50 mg PO TID PRN PRN Reason: Pain, moderate (4-7) - Labs Labs: 09/02/16 07:30 09/02/16 07:30 PT 16.6 Seconds (9.9-11.8) H 09/02/16 07:30 INR 1.54 (0.93-1.08) H 09/02/16 07:30 APTT 39.2 Seconds (23.7-30.8) H 09/01/16 04:20 - Constitutional Appears: No Acute Distress - Head Exam Head Exam: ATRAUMATIC, NORMAL INSPECTION, NORMOCEPHALIC - Eye Exam Eye Exam: EOMI, Normal appearance, PERRL Pupil Exam: NORMAL ACCOMODATION, PERRL - ENT Exam ENT Exam: Mucous Membranes Moist, Normal Exam - Neck Exam Neck Exam: Full ROM, Normal Inspection. absent: Lymphadenopathy - Respiratory Exam Respiratory Exam: Clear to Ausculation Bilateral, NORMAL BREATHING PATTERN - Cardiovascular Exam Cardiovascular Exam: REGULAR RHYTHM, RRR, +S1, +S2. absent: Murmur - GI/Abdominal Exam GI & Abdominal Exam: Soft, Normal Bowel Sounds. absent: Distended, Tenderness - Extremities Exam Extremities Exam: Full ROM, Normal Capillary Refill, Normal Inspection. absent : Calf Tenderness, Joint Swelling, Pedal Edema - Back Exam Back Exam: NORMAL INSPECTION - Neurological Exam Neurological Exam: Alert, Awake, CN II-XII Intact, Oriented x3 - Psychiatric Exam Psychiatric exam: Normal Affect, Normal Mood - Skin Skin Exam: Dry, Intact, Normal Color, Warm Assessment and Plan - Assessment and Plan (Free Text) Assessment: 40M with pMHx of factor V Leiden, CHF, and DVT s/p IVC filter admitted for supratherapeutic INR, hemoptysis, and foot pain. 1. Hemoptysis s/p tonsillectomy bleed repair - INR 1.54 - Heme consulted for recs - Started on Lovenox 80 SC BID will discuss resuming Coumadin -ENT consulted: s/p tonsillectomy bleed repair -Soft diet -3 units of FFP given paraoperatively -Abx - Rocephin -Zofran for nausea 2. Right foot pain -Tramadol prn pain 3. IDDM - Levemir 20u -Humalog 75/25 ACHS 30u/30u -Humalog ISS - soft consistent carb diet 4. CHF -Hold Lasix 20mg IVP daily 5. GI ppx -Protonix Pt and plan was seen and discussed in detail with Dr. Hutchinson. <Irvin Hutchinson - Last Filed: 09/02/16 14:33> Objective - Vital Signs/Intake and Output Vital Signs (last 24 hours): Temp Pulse Resp BP Pulse Ox 98.1 F 68 20 99/65 L 97 09/02/16 08:45 09/02/16 08:45 09/02/16 08:45 09/02/16 08:45 09/02/16 08:45 Intake and Output: 09/02/16 09/02/16 06:59 18:59 Intake Total 120 Balance 120 - Medications Medications: Current Medications Enoxaparin Sodium (Lovenox) 80 mg SC Q12H [facility] PRN Reason: Protocol Last Admin: 09/02/16 09:15 Dose: 80 mg Ceftriaxone Sodium (Rocephin 1 Gram Ivpb) 1 gm in 100 mls @ 100 mls/hr IVPB DAILY [facility] PRN Reason: Protocol Last Admin: 09/02/16 09:15 Dose: 100 mls/hr Insulin Detemir (Levemir) 20 unit SC HS [facility] Last Admin: 09/01/16 23:30 Dose: 20 unit Insulin Human Lispro (Humalog Low) 0 units SC ACHS [facility] PRN Reason: Protocol Last Admin: 09/02/16 11:58 Dose: Not Given Insulin Lispro Protam/Lispro Human (Humalog Mix 75/25) 40 units SC ACB [facility] Last Admin: 09/02/16 09:16 Dose: 40 units Insulin Lispro Protam/Lispro Human (Humalog Mix 75/25) 30 units SC ACD [facility] Ondansetron HCl (Zofran Inj) 4 mg IVP Q6H PRN PRN Reason: Nausea/Vomiting Oxycodone/Acetaminophen (Percocet 5/325 Mg Tab) 1 tab PO Q4H PRN PRN Reason: Pain, Mild (1-3) Stop: 09/03/16 20:46 Last Admin: 09/02/16 10:45 Dose: 1 tab Pantoprazole Sodium (Protonix Inj) 40 mg IVP DAILY [facility] Last Admin: 09/02/16 09:15 Dose: 40 mg Tramadol HCl (Ultram) 50 mg PO TID PRN PRN Reason: Pain, moderate (4-7) - Labs Labs: 09/02/16 07:30 09/02/16 07:30 PT 16.6 Seconds (9.9-11.8) H 09/02/16 07:30 INR 1.54 (0.93-1.08) H 09/02/16 07:30 APTT 39.2 Seconds (23.7-30.8) H 09/01/16 04:20 Attending/Attestation - Attestation I have personally seen and examined this patient.: Yes I have fully participated in the care of the patient.: Yes I have reviewed all pertinent clinical information, including history, physical exam and plan: Yes Notes (Text): 09/02/16 14:11 40 year old male with past medical history of CHF, DVT s/p IVC filter, factor V Leiden and history of recent tonsillectomy who presented with complaint of hemoptysis; also found to have supratherepeutic INR. He was given vitamin K and FFP. On the floor he began to have severe hemoptysis/hematemesis and taken to OR by ENT to control the bleeding. He was transferred to ICU postoperatively. His hemoptysis has since resolved. His INR has come down as did his hemoglobin which is now stable. He had been started on lovenox by hematology today. He is tolerating diet. He is on antibiotics. He is on tramadol prn for pain. Recent foot/ankle xrays were negative. Endocrinology is following patient for uncontrolled diabetes. TSH was elevated. Will repeat and check free t4. Irvin Hutchinson MD Hospitalist.
[2016-09-02] MEDS ORDERED: Insulin Lispro (humaLOG) MIX 75/25(10 ml) SC SCH (16:30)
[2016-09-02] MEDS: Insulin Detemir 100 units/ml Vial (Levemir) SC SCH (22:21)
[2016-09-03] MEDS: Oxycodone/Acetaminophen 5/325 mg Tab PO PRN ×3 (02:54→11:47)
[2016-09-03] MEDS: Insulin Lispro (humaLOG) LOW Coverage SC SCH ×2 (07:54→11:45)
[2016-09-03] MEDS: Insulin Lispro (humaLOG) MIX 75/25(10 ml) SC SCH (07:57)
[2016-09-03 08:34] VITALS: BP 106/69; PULSE 64; RESP 19; TEMP 97.9; O2SAT 97
[2016-09-03 09:03] LABS: HEMOGLOBIN 11.7 gm/dL (14.0-18.0); MEAN CELL VOLUME 88.4 fL (80.0-105.0); MEAN CORPUSCULAR HEMOGLOBIN 29.4 pg (25.0-35.0); MEAN CORPUSCULAR HGB CONC 33.2 g/dl (31.0-37.0); MEAN PLATELET VOLUME 11.2 fl (7.0-11.0); RBC 3.98 10^6/uL (3.5-6.1); RED CELL DISTRIBUTION WIDTH 14.8 % (11.5-14.5); WHITE BLOOD COUNT 12.2 10^3/ul (4.5-11.0)
[2016-09-03 09:09] LABS: INR 1.16 (0.93-1.08); PROTHROMBIN TIME 12.5 Seconds (9.9-11.8)
[2016-09-03 09:14] LABS: ALB/GLOB RATIO 1.9 (1.1-1.8); ALBUMIN 3.8 g/dL (3.0-4.8); ALT/SGPT 51 U/L (7-56); AST/SGOT 45 U/L (15-59); BLOOD UREA NITROGEN 12 mg/dL (7-21); GFR AFRICAN-AMERICAN > 60; GFR NON-AFRICAN AMERICAN > 60
[2016-09-03] MEDS: Enoxaparin 80 mg Syringe SC SCH (09:24)
[2016-09-03] MEDS: cefTRIAXone 1 gm 1 GM/100 ML BAG IVPB SCH (09:24)
[2016-09-03 09:29] LABS: FREE T4 1.55 ng/dL (0.78-2.19)
[2016-09-03] MEDS ORDERED: Insulin Regular 1 UNITS/0.01 ML ML IV SCH (10:00)
--- NOTE | 2016-09-03 13:58 | CP.PCM.DIS ---
<Bharath Jasso - Last Filed: 09/03/16 13:40> Provider - Provider Date of Admission: 08/31/16 09:55 Attending physician: Irvin Hutchinson MD Primary care physician: Allyssa Lowe DO Consults: ENT, Endo, Heme, Time Spent in preparation of Discharge (in minutes): 45 Hospital Course - Lab Results Lab Results: Micro Results 08/31/16 20:15 Naris MRSA Culture (Admit) - Final MRSA NOT DETECTED 09/02/16 06:40 Stool C. difficile Antigen & Toxin A,B (M - Final Most Recent Lab Values WBC 12.2 10^3/ul (4.5-11.0) H D 09/03/16 08:45 RBC 3.98 10^6/uL (3.5-6.1) 09/03/16 08:45 Hgb 11.7 gm/dL (14.0-18.0) L 09/03/16 08:45 Hct 35.2 % (42.0-52.0) L 09/03/16 08:45 MCV 88.4 fL (80.0-105.0) 09/03/16 08:45 MCH 29.4 pg (25.0-35.0) 09/03/16 08:45 MCHC 33.2 g/dl (31.0-37.0) 09/03/16 08:45 RDW 14.8 % (11.5-14.5) H 09/03/16 08:45 Plt Count 457 10^3/uL (120.0-450.0) H 09/03/16 08:45 MPV 11.2 fl (7.0-11.0) H 09/03/16 08:45 Gran % 61.7 % (50.0-68.0) 09/02/16 07:30 Lymph % (Auto) 26.5 % (22.0-35.0) 09/02/16 07:30 Coles % (Auto) 11.1 % (1.0-6.0) H 09/02/16 07:30 Eos % (Auto) 0.3 % (1.5-5.0) L 09/02/16 07:30 Baso % (Auto) 0.4 % (0.0-3.0) 09/02/16 07:30 Gran # 9.82 (1.4-6.5) H 09/02/16 07:30 Lymph # 4.2 (1.2-3.4) H 09/02/16 07:30 Coles # 1.8 (0.1-0.6) H 09/02/16 07:30 Eos # 0.0 (0.0-0.7) 09/02/16 07:30 Baso # 0.06 K/mm3 (0.0-2.0) 09/02/16 07:30 Neutrophils % (Manual) 96 % (50.0-70.0) H 08/31/16 20:23 Lymphocytes % (Manual) 3 % (22.0-35.0) L 08/31/16 20:23 Monocytes % (Manual) 1 % (1.0-6.0) 08/31/16 20:23 Platelet Evaluation Normal (NORMAL) 08/31/16 20:23 Hypochromasia 1+ 08/31/16 20:23 PT 12.5 Seconds (9.9-11.8) H 09/03/16 08:45 INR 1.16 (0.93-1.08) H 09/03/16 08:45 APTT 39.2 Seconds (23.7-30.8) H 09/01/16 04:20 Sodium 136 mmol/L (132-148) 09/03/16 08:45 Potassium 4.7 mmol/L (3.6-5.0) 09/03/16 08:45 Chloride 97 mmol/L (95-110) 09/03/16 08:45 Carbon Dioxide 30 mmol/L (21-33) 09/03/16 08:45 Anion Gap 14 (10-20) 09/03/16 08:45 BUN 12 mg/dL (7-21) 09/03/16 08:45 Creatinine 0.6 mg/dL (0.5-1.4) 09/03/16 08:45 Est GFR ( Amer) > 60 09/03/16 08:45 Est GFR (Non-Af Amer) > 60 09/03/16 08:45 POC Glucose (mg/dL) 108 mg/dL (65-110) 09/03/16 11:43 Random Glucose 260 mg/dL (70-110) H 09/03/16 08:45 Hemoglobin A1c 9.8 % (4.2-6.5) H 09/02/16 07:30 Calcium 9.0 mg/dL (8.4-10.5) 09/03/16 08:45 Magnesium 1.8 mg/dL (1.7-2.2) 08/31/16 06:57 Total Bilirubin 0.4 mg/dL (0.2-1.3) 09/03/16 08:45 AST 45 U/L (15-59) 09/03/16 08:45 ALT 51 U/L (7-56) 09/03/16 08:45 Alkaline Phosphatase 121 U/L (38-133) 09/03/16 08:45 Lactate Dehydrogenase 518 U/L (333-699) 08/31/16 06:57 Total Creatine Kinase 77 U/L (35-230) 08/31/16 06:57 Troponin I < 0.01 ng/mL 08/31/16 06:57 NT-Pro-B Natriuret Pep 1010 pg/mL (0-450) H 08/31/16 06:57 Total Protein 5.9 g/dL (5.8-8.3) 09/03/16 08:45 Albumin 3.8 g/dL (3.0-4.8) 09/03/16 08:45 Globulin 2.0 gm/dL 09/03/16 08:45 Albumin/Globulin Ratio 1.9 (1.1-1.8) H 09/03/16 08:45 Triglycerides 193 mg/dL (35-160) H 09/02/16 07:30 Cholesterol 156 mg/dL (130-200) 09/02/16 07:30 LDL Cholesterol Direct 91 mg/dL (0-129) 09/02/16 07:30 HDL Cholesterol 39 mg/dL (29-60) 09/02/16 07:30 Lipase 125 U/L (23-300) 08/31/16 06:57 Free T4 1.55 ng/dL (0.78-2.19) 09/03/16 08:45 TSH 3rd Generation 6.96 mIU/mL (0.46-4.68) H 09/03/16 08:45 Cortisol AM Sample 1.7 ug/dL (4.46-22.7) L 09/02/16 07:30 Urine Color Yellow (YELLOW) 08/31/16 10:00 Urine Appearance Clear (CLEAR) 08/31/16 10:00 Urine pH 6.0 (4.7-8.0) 08/31/16 10:00 Ur Specific Brandon 1.025 (1.005-1.035) 08/31/16 10:00 Urine Protein Negative mg/dL (<30 mg/dL) 08/31/16 10:00 Urine Glucose (UA) 250 mg/dL (NEGATIVE) H 08/31/16 10:00 Urine Ketones Trace mg/dL (NEGATIVE) H 08/31/16 10:00 Urine Blood Negative (NEGATIVE) 08/31/16 10:00 Urine Nitrate Negative (NEGATIVE) 08/31/16 10:00 Urine Bilirubin Negative (NEGATIVE) 08/31/16 10:00 Urine Urobilinogen 0.2 E.U./dL (<1 E.U./dL) 08/31/16 10:00 Ur Leukocyte Esterase Negative Cori/uL (NEGATIVE) 08/31/16 10:00 Blood Type B POSITIVE 08/31/16 16:55 Antibody Screen Negative 08/31/16 16:55 Crossmatch See Detail 08/31/16 16:55 BBK History Checked Patient has bt 08/31/16 16:55 - Hospital Course Hospital Course: 40 yo male with pMHx of Factor V Leiden, CHF, DVT s/p IVC filter, and s/p tonsillectomy 2 weeks prior presents following multiple episodes of coughing up blood starting earlier in the morning. In the ED basic lab work and INR/PT was done. CXR showed no consolidation, b/l hilar and R Peritracheal enlargement. US of ext was neg for DVTs. CT chest was unremarkable. Wbc was 14.2, and Hb was 14.7, INR was supra therapeutic at 4.43. Pt was admitted to the floor for close monitoring. His Coumadin was held. Pt started having multiple bouts of hemoptysis on the floor. Vit K and FFP was given to reverse the INR. ENT was consulted and recommended taking the patient to the OR - controlled the bleeding tonsillectomy site. Pt tolerated the procedure well with no complications. Heme was consulted regarding anticoagulation and placed the pt on therapeutic Lovenox. Endo was consulted for blood sugars and elevated TSH. Insulin regimen was adjusted and pt was started on levothyroxine 50mcq. Today pt was seen and examined. No acute events. No further episodes of hemoptysis. Denies any f/c/n/v, sob, cp, abd pain, urinary or bm changes. Discharge Exam - Head Exam Head Exam: ATRAUMATIC, NORMAL INSPECTION, NORMOCEPHALIC - Eye Exam Eye Exam: EOMI, Normal appearance, PERRL Pupil Exam: NORMAL ACCOMODATION, PERRL - ENT Exam ENT Exam: Mucous Membranes Moist - Respiratory Exam Respiratory Exam: Clear to PA & Lateral, NORMAL BREATHING PATTERN. absent: Rales, Wheezes - Cardiovascular Exam Cardiovascular Exam: REGULAR RHYTHM, RRR, +S1, +S2 - GI/Abdominal Exam GI & Abdominal Exam: Normal Bowel Sounds, Soft. absent: Tenderness - Neurological Exam Neurological exam: Alert, CN II-XII Intact, Normal Gait, Oriented x3, Reflexes Normal - Psychiatric Exam Psychiatric exam: Normal Affect, Normal Mood - Skin Skin Exam: Dry, Intact, Normal Color, Warm Discharge Plan - Discharge Medications Prescriptions: Amoxicillin/Clavulanate [Augmentin 875 MG-125 MG] 1 tab PO BID #10 tab Enoxaparin [Lovenox] 80 mg IJ BID #28 syr Insulin Detemir [Levemir] 20 unit SC HS #30 unit Insulin Lispro Mix 75/25 [HumaLOG Mix 75/25] 30 units SC ACD #30 ml Insulin Lispro Mix 75/25 [HumaLOG Mix 75/25] 40 units SC ACB #30 ml Levothyroxine [Synthroid] 50 mcg PO DAILY #30 tab - Follow Up Plan Condition: IMPROVED Disposition: HOME/ ROUTINE Patient education suggested?: Yes Instructions: Hemoptysis (GEN), Blood Thinners (DC) Additional Instructions: Follow up with your PMD with in 2-3 days. Follow up with your ENT with in next week. If your symptoms recur come back to the ED. Take your meds as prescribed. Referrals: Omar Franco DO [Staff Provider] - Jodi Burrows MD [Medical Doctor] - Allyssa Lowe DO [Primary Care Provider] - Valerie Woods MD [Staff Provider] - <Irvin Hutchinson - Last Filed: 09/03/16 14:47> Provider - Provider Date of Admission: 08/31/16 09:55 Attending physician: Irvin Hutchinson MD Primary care physician: Allyssa Lowe DO [facility] Course - Lab Results Lab Results: Micro Results 08/31/16 20:15 Naris MRSA Culture (Admit) - Final MRSA NOT DETECTED 09/02/16 06:40 Stool C. difficile Antigen & Toxin A,B (M - Final Most Recent Lab Values WBC 12.2 10^3/ul (4.5-11.0) H D 09/03/16 08:45 RBC 3.98 10^6/uL (3.5-6.1) 09/03/16 08:45 Hgb 11.7 gm/dL (14.0-18.0) L 09/03/16 08:45 Hct 35.2 % (42.0-52.0) L 09/03/16 08:45 MCV 88.4 fL (80.0-105.0) 09/03/16 08:45 MCH 29.4 pg (25.0-35.0) 09/03/16 08:45 MCHC 33.2 g/dl (31.0-37.0) 09/03/16 08:45 RDW 14.8 % (11.5-14.5) H 09/03/16 08:45 Plt Count 457 10^3/uL (120.0-450.0) H 09/03/16 08:45 MPV 11.2 fl (7.0-11.0) H 09/03/16 08:45 Gran % 61.7 % (50.0-68.0) 09/02/16 07:30 Lymph % (Auto) 26.5 % (22.0-35.0) 09/02/16 07:30 Coles % (Auto) 11.1 % (1.0-6.0) H 09/02/16 07:30 Eos % (Auto) 0.3 % (1.5-5.0) L 09/02/16 07:30 Baso % (Auto) 0.4 % (0.0-3.0) 09/02/16 07:30 Gran # 9.82 (1.4-6.5) H 09/02/16 07:30 Lymph # 4.2 (1.2-3.4) H 09/02/16 07:30 Coles # 1.8 (0.1-0.6) H 09/02/16 07:30 Eos # 0.0 (0.0-0.7) 09/02/16 07:30 Baso # 0.06 K/mm3 (0.0-2.0) 09/02/16 07:30 Neutrophils % (Manual) 96 % (50.0-70.0) H 08/31/16 20:23 Lymphocytes % (Manual) 3 % (22.0-35.0) L 08/31/16 20:23 Monocytes % (Manual) 1 % (1.0-6.0) 08/31/16 20:23 Platelet Evaluation Normal (NORMAL) 08/31/16 20:23 Hypochromasia 1+ 08/31/16 20:23 PT 12.5 Seconds (9.9-11.8) H 09/03/16 08:45 INR 1.16 (0.93-1.08) H 09/03/16 08:45 APTT 39.2 Seconds (23.7-30.8) H 09/01/16 04:20 Sodium 136 mmol/L (132-148) 09/03/16 08:45 Potassium 4.7 mmol/L (3.6-5.0) 09/03/16 08:45 Chloride 97 mmol/L (95-110) 09/03/16 08:45 Carbon Dioxide 30 mmol/L (21-33) 09/03/16 08:45 Anion Gap 14 (10-20) 09/03/16 08:45 BUN 12 mg/dL (7-21) 09/03/16 08:45 Creatinine 0.6 mg/dL (0.5-1.4) 09/03/16 08:45 Est GFR ( Amer) > 60 09/03/16 08:45 Est GFR (Non-Af Amer) > 60 09/03/16 08:45 POC Glucose (mg/dL) 108 mg/dL (65-110) 09/03/16 11:43 Random Glucose 260 mg/dL (70-110) H 09/03/16 08:45 Hemoglobin A1c 9.8 % (4.2-6.5) H 09/02/16 07:30 Calcium 9.0 mg/dL (8.4-10.5) 09/03/16 08:45 Magnesium 1.8 mg/dL (1.7-2.2) 08/31/16 06:57 Total Bilirubin 0.4 mg/dL (0.2-1.3) 09/03/16 08:45 AST 45 U/L (15-59) 09/03/16 08:45 ALT 51 U/L (7-56) 09/03/16 08:45 Alkaline Phosphatase 121 U/L (38-133) 09/03/16 08:45 Lactate Dehydrogenase 518 U/L (333-699) 08/31/16 06:57 Total Creatine Kinase 77 U/L (35-230) 08/31/16 06:57 Troponin I < 0.01 ng/mL 08/31/16 06:57 NT-Pro-B Natriuret Pep 1010 pg/mL (0-450) H 08/31/16 06:57 Total Protein 5.9 g/dL (5.8-8.3) 09/03/16 08:45 Albumin 3.8 g/dL (3.0-4.8) 09/03/16 08:45 Globulin 2.0 gm/dL 09/03/16 08:45 Albumin/Globulin Ratio 1.9 (1.1-1.8) H 09/03/16 08:45 Triglycerides 193 mg/dL (35-160) H 09/02/16 07:30 Cholesterol 156 mg/dL (130-200) 09/02/16 07:30 LDL Cholesterol Direct 91 mg/dL (0-129) 09/02/16 07:30 HDL Cholesterol 39 mg/dL (29-60) 09/02/16 07:30 Lipase 125 U/L (23-300) 08/31/16 06:57 Free T4 1.55 ng/dL (0.78-2.19) 09/03/16 08:45 TSH 3rd Generation 6.96 mIU/mL (0.46-4.68) H 09/03/16 08:45 Cortisol AM Sample 1.7 ug/dL (4.46-22.7) L 09/02/16 07:30 Urine Color Yellow (YELLOW) 08/31/16 10:00 Urine Appearance Clear (CLEAR) 08/31/16 10:00 Urine pH 6.0 (4.7-8.0) 08/31/16 10:00 Ur Specific Brandon 1.025 (1.005-1.035) 08/31/16 10:00 Urine Protein Negative mg/dL (<30 mg/dL) 08/31/16 10:00 Urine Glucose (UA) 250 mg/dL (NEGATIVE) H 08/31/16 10:00 Urine Ketones Trace mg/dL (NEGATIVE) H 08/31/16 10:00 Urine Blood Negative (NEGATIVE) 08/31/16 10:00 Urine Nitrate Negative (NEGATIVE) 08/31/16 10:00 Urine Bilirubin Negative (NEGATIVE) 08/31/16 10:00 Urine Urobilinogen 0.2 E.U./dL (<1 E.U./dL) 08/31/16 10:00 Ur Leukocyte Esterase Negative Cori/uL (NEGATIVE) 08/31/16 10:00 Blood Type B POSITIVE 08/31/16 16:55 Antibody Screen Negative 08/31/16 16:55 Crossmatch See Detail 08/31/16 16:55 BBK History Checked Patient has bt 08/31/16 16:55 Attending/Attestation - Attestation I have personally seen and examined this patient.: Yes I have fully participated in the care of the patient.: Yes I have reviewed all pertinent clinical information, including history, physical exam and plan: Yes Notes (Text): 09/03/16 14:40 40 year old male with past medical history of CHF, DVT s/p IVC filter, factor V Leiden and history of recent tonsillectomy who presented with complaint of hemoptysis. He was found to have supratherepeutic INR. He was given vitamin K and FFP. On the floor he began to have severe hemoptysis/hematemesis and taken to OR by ENT to control the bleeding. His symptoms improved and his hemoptysis has since resolved. His INR has come down as did his hemoglobin which is now stable. He was started on lovenox by hematology. His diet was advanced which he is tolerating. He is on antibiotics and his leukocytosis has improved. He was being followed by endocrinology for uncontrolled diabetes. TSH was also elevated and he is to be started on synthroid after discussion with Dr. Burrows. Patient will be discharged home today. Follow up with pmd. Follow up with director television news. Follow up with ENT. Follow up with narcotics detective. Irvin Hutchinson MD Hospitalist.
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
--- NOTE | 2016-09-09 10:27 | PCM.OP ---
Operative Report - Operative Report Date of Surgery/Procedure: 08/31/16 Surgeon: Dr. Omar Franco Actuarial Technician: Dr. Coello Anesthesia/Sedation: General Endotracheal Pre-Operative Diagnosis: Post Tonsillectomy Bleeding Post-Operative Diagnosis: Post Tonsillectomy Bleeding Indication for Surgery: 40 year old male came in after tonsillectomy who presented with post-tonsillar bleeding ( left & right tonsil ). Evaluated at bedside where patient was actively hemorrhaging, noted left tonsillar fossa was bleeding. Decision was made to bring the patient to operating room. Risks/ Benefits: Injury to nearby vessels, potential for more bleeding , need for more operations, infection, loss of airway. CONSENT: Discussed possibilities with Pt whom understood and agreed to proceed with the operation Operative Findings: Bleeding from left tonsslar fossa. Procedure/Operation Description: 08/31/16 Pt was brought into OR placed on operating table in Supine position general anesthesia was induced. The Pt was then prepped and draped in surgical fashion, macgyver mask gag inserted into oral cavity and retracted for visualization of the tonsils. It was noted that there was a large blood clot in the L tonsillar fossa. There was also a. fair amount of blood sitting in the oropharynx __. The blood and the clot from the left tonsillar fossa, was noted that the anterior pole of the left tonsillar fossa and off the superior pole was bleeding. The bleeding was stopped using suction cautery on the left tonsillar fossa, where a small amount of bleeding on the right tonsillar fossa which was also controlled by using suction cautery. At this point, tonsillar sponge was used to apply pressure to the bilateral tonsillar fossa. The Macgyver Mask Gag was let down and at this point we waited several minutes to ensure adequate hemostasis was achieved. The Macgyver Mask gag was opened and hemostasis was noted in the tonsillar fossas. An orogastric tube was passed to allow suction of the stomach content, bloody content was then suctioned until clear. 0.25% Marcaine was injected into the bilateral tonsillar fossa as a local anesthetic. Macgyver Mask Gag was then removed and care was transferred back to the anesthesia team who woke the patient from anesthesia and transferred back to stable condition. Patient tolerated the procedure well. Estimated Blood Loss: 25 cc Complications: None Discharge & Condition: Disposition stable and brought to PACU. Patient tolerated the procedure well.
--- NOTE | 2016-09-09 10:52 | CP.PCM.PN ---
Subjective - Date & Time of Evaluation Date of Evaluation: 09/01/16 Time of Evaluation: 21:00 - Subjective Subjective: Patient is seen and examined, no acute medicine noted. The chart has been reviewed, patient is offering no complaints of bleeding today. He has been tolerating soft diet without difficulty. He denies chest pain, palpitations, shortness of breath, lightheadedness, and dizziness. He reports his conflict with pain is much improved today. Objective - Vital Signs/Intake and Output Vital Signs (last 24 hours): Temperature: 97.7 F Pulse: 82 Blood pressure: 99/52 Respiratory rate: 17 Oxygen saturation: 98% on room air Temp Pulse Resp BP Pulse Ox 97.9 F 64 19 106/69 97 09/03/16 06:00 09/03/16 06:00 09/03/16 06:00 09/03/16 06:00 09/03/16 06:00 - Labs Labs: Hemoglobin: 19.4. Trended with previously 11.1, 10.8, 11.4 values since his operative intervention coagulation Platelets: 427 INR: 2.3 Chemistry blood glucose: 327, elevated in the morning BMP: 384 and 481 09/03/16 08:45 09/03/16 08:45 PT 12.5 Seconds (9.9-11.8) H 09/03/16 08:45 INR 1.16 (0.93-1.08) H 09/03/16 08:45 APTT 39.2 Seconds (23.7-30.8) H 09/01/16 04:20 - Constitutional Appears: No Acute Distress, Other (Patient is age appropriate, 40 year old male with no acute distress. Answers questions appropriately in full sentences.) - ENT Exam Additional comments: Tongue midline, no swelling. Postoperative change in viral tonsil fossa, no active bleeding, no coagulum. Ears and auricles are unremarkable. Nose and ears are patent, there is no current epistaxis. - Neck Exam Additional comments: supple Assessment and Plan - Assessment and Plan (Free Text) Assessment: Patient is a 40 year old male, postoperative day 1, status post controlled post tonsillectomy pharyngeal hemorrhage. Patient is improved, he has had no bleeding , and he is asymptomatic from his acute blood loss. Plan: 1)Continue routine postoperative care. 2)Pain management as needed. 3)Continue soft diet for the next week. 4)Medical service should optimize blood glucose and other medical issues. 5)Patient should follow up at an outpatient within the next week with Dr. Yeung and Dr. Choudhary, Funmi is his primary stereotyper apprentice.
== END 2016-09-03 14:20 | disposition home or self-care (01) | DRG 442 ==
LOC: ED 05:50 → ERH 09:55 → 2RNO 11:23 → CCU 19:46 → 3RSO 09-01 19:41
PROVIDERS: ADMIT Internal Medicine; ATTEND Internal Medicine
PROC: 30233K1 Transfusion of Nonautologous Frozen Plasma into Peripheral Vein, Percutaneous Approach (ICD-10-PCS; 2016-08-31)
PROC: 0W330ZZ Control Bleeding in Oral Cavity and Throat, Open Approach (ICD-10-PCS; principal; 2016-08-31 15:45)
DX: J95.831 Postprocedural hemorrhage of a respiratory system organ or structure following other procedure (principal); D68.51 Activated protein C resistance; K92.0 Hematemesis; I42.9 Cardiomyopathy, unspecified; E11.65 Type 2 diabetes mellitus with hyperglycemia; I50.9 Heart failure, unspecified; R04.2 Hemoptysis; D72.829 Elevated white blood cell count, unspecified; K21.9 Gastro-esophageal reflux disease without esophagitis; L80 Vitiligo; R79.1 Abnormal coagulation profile; Z79.4 Long term (current) use of insulin; Z79.899 Other long term (current) drug therapy; Z83.3 Family history of diabetes mellitus; Z82.49 Family history of ischemic heart disease and other diseases of the circulatory system; Z86.718 Personal history of other venous thrombosis and embolism; Z87.01 Personal history of pneumonia (recurrent); Z90.81 Acquired absence of spleen; Z87.81 Personal history of (healed) traumatic fracture; L40.9 Psoriasis, unspecified; Z87.898 Personal history of other specified conditions; R40.2412 Glasgow coma scale score 13-15, at arrival to emergency department; M79.671 Pain in right foot

== ENCOUNTER 2017-01-24 17:44 | Emergency (ER) | payer BC, MEDICAID ==
[2017-01-24 17:51] VITALS: BMI 27.5
[2017-01-24 18:07] VITALS: RESP 18
--- NOTE | 2017-01-24 18:14 | ED PDOC ---
Arrival/HPI - General Chief Complaint: Abnormal Skin Integrity Time Seen by Provider: 01/24/17 18:08 Historian: Patient - History of Present Illness Narrative History of Present Illness (Text): 01/24/17 19:15 A 41 year old male, whose past medical history includes CHF, cardiomyopathy, sepsis, hypoglycemia, presents to the emergency department for post defibrillator placement, which was place in mid November. The patient states he has pain, redness, and swelling around the incision site. He deneis any shortness of breath, chest pain, nausea, vomiting, diarrhea, or any other complaints at this time. The patient was seen by Dr. Calixto who stated the patient should go to the emergency department to make sure he didn't have an abscess. 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 lower arms scar r lower leg injury from family medicine physician - Musculoskeletal/Rheumatological Hx Musculoskeletal Disorders: Yes Hx Falls: No Hx Fractures: Yes (FEMORAL FX ORIF REMOVAL OF HARDWARE) Hx Unsteady Gait: Yes Other/Comment: right orif and hardware removal - Gastrointestinal Hx Gastrointestinal Disorders: Yes Hx Gastroesophageal Reflux: Yes - Genitourinary/Gynecological Hx Genitourinary Disorders: Yes Other/Comment: ERECTILE DYSFUNCTION/penile implant - Psychiatric Hx Psychophysiologic Disorder: No Hx Substance Use: Yes (quit 2 yrs ago) - Surgical History Hx Open Heart Surgery: Yes (remove blot clot 2004) Hx Splenectomy: Yes (2003) Other/Comment: Femur fracture right 2003,DVT IVC FILTER,OPEN HEART SURGERY-CLOT REMOVAL FOR L VENTRICLE 2004, arthoscopic debridement, synovectomy sx for right septic knee joint and left arm picc line insertion, 09/15/2015, splenectomy 2003 , tonsillectomy 13 days ago at [facility] - Anesthesia Hx Anesthesia Reactions: No Hx Malignant Hyperthermia: No - Suicidal Assessment Feels Threatened In Home Enviroment: No Family/Social History - Physician Review Nursing Documentation Reviewed: Yes Family/Social History: No Known Family HX Smoking Status: Never Smoked Hx Alcohol Use: Yes (rare) Hx Substance Use: Yes (quit 2 yrs ago) Substance used: Amphetamines Hx Substance Use Treatment: No Allergies/Home Meds Allergies/Adverse Reactions: Allergies No Known Allergies Allergy (Verified 01/24/17 17:57) Home Medications: Home Meds Medication Instructions Recorded Confirmed Lisinopril [Zestril] 5 mg PO DAILY 08/19/16 01/24/17 Warfarin [Coumadin] 5 mg PO DAILY 01/24/17 01/24/17 Review of Systems - Physician Review All systems were reviewed & negative as marked: Yes - Review of Systems Respiratory: absent: SOB Cardiovascular: absent: Chest Pain Gastrointestinal: absent: Diarrhea, Nausea, Vomiting Skin: Other (pain, erythema, edema to incision site) Physical Exam Vital Signs Reviewed: Yes Vital Signs Temp Pulse Resp BP Pulse Ox 01/24/17 20:47 98.4 F 70 18 107/72 97 01/24/17 17:47 98.7 F 89 18 116/78 98 Temperature: Afebrile Blood Pressure: Normal Pulse: Regular Respiratory Rate: Normal Appearance: Positive for: Well-Appearing, Non-Toxic, Comfortable Pain Distress: None Mental Status: Positive for: Alert and Oriented X 3 - Systems Exam Head: Present: Atraumatic, Normocephalic Pupils: Present: PERRL Extroacular Muscles: Present: EOMI Conjunctiva: Present: Normal Mouth: Present: Moist Mucous Membranes Neck: Present: Normal Range of Motion Respiratory/Chest: Present: Clear to Auscultation, Good Air Exchange. No: Respiratory Distress, Accessory Muscle Use Cardiovascular: Present: Regular Rate and Rhythm, Normal S1, S2. No: Murmurs Abdomen: Present: Normal Bowel Sounds. No: Tenderness, Distention, Peritoneal Signs Upper Extremity: Present: Normal Inspection. No: Cyanosis, Edema Lower Extremity: Present: Normal Inspection. No: Edema Neurological: Present: GCS=15, CN II-XII Intact, Speech Normal Skin: Present: Warm, Dry, Normal Color, Other (bottom half of wound site shows small red tissue hanging out of open wound and the surrounding area is erythematous and tender; upper site of wound appears dry and intact with mild erythema.). No: Rashes Psychiatric: Present: Alert, Oriented x 3, Normal Insight, Normal Concentration Medical Decision Making ED Course and Treatment: 01/24/17 19:00 Impression: A 41 year old male with possible abscess to wound site. Differential Diagnosis included but are not limited to: Plan: -- Chest X-ray -- Chest X-ray with contrast -- Dilaudid, humulin, unasyn -- labs -- Reassess and disposition Progress Notes: CT Chest With Intravenous Contrast FINDINGS: Lungs: No mass. No consolidation. Right basilar scarring, unchanged. Pleural spaces: No significant effusion. No pneumothorax. Heart: Persistent cardiomegaly, without significant pericardial effusion. Interval placement of an SICD projecting over the left lateral chest wall. Its lead extending medially, with presternal tunneling. At the level of the xiphoid process, is a small fluid collection without rim enhancement possibly related to the area of clinical concern. This collection measures 29 x 21 mm, and extends to the left of midline. No subfascial extension is identified. Vasculature: No aortic aneurysm. Lymph nodes: Persistent left axillary lymphadenopathy, unchanged from prior. The largest lymph node measuring 19 mm in short axis dimension. No mediastinal lymphadenopathy is detected. Bones: No acute fracture. Prior sternotomy. IMPRESSION: Small fluid collection at the level of the xiphoid process, to the left of midline without rim enhancement to suggest an abscess, as detailed above. Additional nonacute findings, as detailed above. Dictated and Authenticated by: Va Price MD 01/24/2017 9:02 PM Eastern Time ([place] & [place]) - Lab Interpretations Lab Results: 01/24/17 18:00 01/24/17 18:00 Lab Results 01/24/17 18:00: Sodium 133, Potassium 4.6, Chloride 99, Carbon Dioxide 26, Anion Gap 14, BUN 11, Creatinine 0.6 L, Est GFR ( Amer) > 60, Est GFR ( Non-Af Amer) > 60, Random Glucose 404 H* D, Calcium 9.4, Total Bilirubin 0.9, AST 22, ALT 34, Alkaline Phosphatase 144 H, Total Protein 6.3, Albumin 4.2, Globulin 2.1, Albumin/Globulin Ratio 2.0 H 01/24/17 18:00: WBC 12.1 H, RBC 4.84, Hgb 14.0, Hct 42.0, MCV 86.8, MCH 28.9, MCHC 33.3, RDW 15.3 H, Plt Count 408, MPV 11.3 H, Gran % 52.5, Lymph % (Auto) 35.1 H, Rutherford % (Auto) 10.8 H, Eos % (Auto) 0.9 L, Baso % (Auto) 0.7, Gran # 6.38 , Lymph # 4.3 H, Rutherford # 1.3 H, Eos # 0.1, Baso # 0.08 - RAD Interpretation Radiology Orders: 01/24/17 18:30 CHEST W/CONTRAST [CT] Stat CHEST ONE VIEW [RAD] Stat - Medication Orders Current Medication Orders: Discontinued Medications Hydromorphone HCl (Dilaudid) 1 mg IVP STAT STA Stop: 01/24/17 18:32 Last Admin: 01/24/17 18:43 Dose: 1 mg MAR Pain Assessment Document 01/24/17 18:43 SRE (Rec: 01/24/17 18:44 [id number] [id number]) Pain Reassessment Is this a pain reassessment? Yes Sleep Is patient sleeping during reassessment? No Presence of Pain Presence of Pain Yes Pain Scale Used Pain Scale Used Numeric Location Left, Right or Bilateral Left Pain Location Body Site Abdomen IVP Administration Document 01/24/17 18:43 SRE (Rec: 01/24/17 18:44 SRE [id number]) Charges for Administration # of IVP Administrations 1 Hydromorphone HCl (Dilaudid) 1 mg IVP STAT STA Stop: 01/24/17 18:33 Last Admin: 01/24/17 18:41 Dose: Ampicillin Sodium/Sulbactam (Sodium 3 gm/ Sodium Chloride) 100 mls @ 100 mls/ hr IVPB STAT STA PRN Reason: Protocol Stop: 01/24/17 20:04 Last Admin: 01/24/17 19:45 Dose: 100 mls/hr eMAR Start Stop Document 01/24/17 19:45 [email or web address] (Rec: 01/24/17 19:[address]- [id number]) Intravenous Solution Start Date 01/24/17 Start Time 19:45 End Date 01/24/17 Insulin Human Regular (Humulin R) 6 units SC ONCE ONE Stop: 01/24/17 19:07 Last Admin: 01/24/17 19:15 Dose: 6 units MAR Blood Glucose Document 01/24/17 19:15 [email or web address] (Rec: 01/24/17 19:[address]- [id number]) Blood Glucose Finger Stick Blood Glucose (70-120) 404 Subcutaneous Administrations Document 01/24/17 19:15 [email or web address] (Rec: 01/24/17 19:[address]- [id number]) Injection Site MAR Injection Site Right Deltoid Charges for Administration # of Subcutaneous Administrations 1 - Scribe Statement The provider has reviewed the documentation as recorded by the Ceferino Ramirez Provider Scribe Attestation: All medical record entries made by the Scribe were at my direction and personally dictated by me. I have reviewed the chart and agree that the record accurately reflects my personal performance of the history, physical exam, medical decision making, and the department course for this patient. I have also personally directed, reviewed, and agree with the discharge instructions and disposition. Disposition/Present on Arrival - Present on Arrival Any Indicators Present on Arrival: Yes History of DVT/PE: Yes History of Uncontrolled Diabetes: No Urinary Catheter: No History of Decub. Ulcer: No History Surgical Site Infection Following: None - Disposition Have Diagnosis and Disposition been Completed?: Yes Diagnosis: Cellulitis Disposition: HOME/ ROUTINE Disposition Time: 21:18 Patient Problems: Current Active Problems Problem Status Onset Cellulitis Acute Condition: IMPROVED Discharge Instructions (ExitCare): Cellulitis (ED), Cellulitis (DC) Prescriptions: Amoxicillin/Clavulanate [Augmentin 875 MG-125 MG] 1 tab PO BID 7 Days #14 tab oxyCODONE/Acetaminophen [Percocet 5/325 mg Tab] 1 ea PO TID PRN #15 tab PRN Reason: Pain, Moderate (4-7) Referrals: Allyssa Lowe DO [Primary Care Provider] - Follow up with primary Forms: [employer] (Arabic)
[2017-01-24] MEDS ORDERED: HYDROmorphone 1 mg/ml ISec IVP STA ×2 (18:31→18:32)
[2017-01-24 18:46] LABS: BASO # 0.08 K/mm3 (0.0-2.0); BASO % 0.7 % (0.0-3.0); EOS # 0.1 (0.0-0.7); EOS % 0.9 % (1.5-5.0); GRAN # 6.38 (1.4-6.5); GRAN % 52.5 % (50.0-68.0); LYMPH # 4.3 (1.2-3.4); LYMPH % 35.1 % (22.0-35.0); MEAN CELL VOLUME 86.8 fl (80.0-105.0); MEAN CORPUSCULAR HEMOGLOBIN 28.9 pg (25.0-35.0); MEAN CORPUSCULAR HGB CONC 33.3 g/dl (31.0-37.0); MEAN PLATELET VOLUME 11.3 fl (7.0-11.0); MONO # 1.3 (0.1-0.6); MONO % 10.8 % (1.0-6.0); RBC 4.84 10^6/uL (3.5-6.1); RED CELL DISTRIBUTION WIDTH 15.3 % (11.5-14.5); WHITE BLOOD COUNT 12.1 10^3/ul (4.5-11.0)
[2017-01-24 19:02] LABS: ALBUMIN 4.2 g/dL (3.0-4.8); ALT/SGPT 34 U/L (7-56); AST/SGOT 22 U/L (17-59); BLOOD UREA NITROGEN 11 mg/dL (7-21); CALCIUM 9.4 mg/dL (8.4-10.5); GFR AFRICAN-AMERICAN > 60; GFR NON-AFRICAN AMERICAN > 60
[2017-01-24] MEDS ORDERED: Insulin Regular 1 UNITS/0.01 ML ML SC ONE (19:06)
[2017-01-24 20:49] VITALS: PULSE 70; TEMP 98.4; O2SAT 97
--- NOTE | 2017-01-24 21:02 | CT ---
EXAM: CT Chest With Intravenous Contrast CLINICAL HISTORY: 41 years old, male; Pain; Chest pain; Type not specified; Additional info: RO abscess TECHNIQUE: Axial computed tomography images of the chest with intravenous contrast. All CT scans at this facility use one or more dose reduction techniques, viz.: automated exposure control; ma/kV adjustment per patient size (including targeted exams where dose is matched to indication; i.e. head); or iterative reconstruction technique. MIP reconstructed images were created and reviewed. Coronal and sagittal reformatted images were created and reviewed. CONTRAST: 100 mL of OMNI administered intravenously. COMPARISON: CT - CHEST W/CONTRAST 2016-08-31 09:26 FINDINGS: Lungs: No mass. No consolidation. Right basilar scarring, unchanged. Pleural spaces: No significant effusion. No pneumothorax. Heart: Persistent cardiomegaly, without significant pericardial effusion. Interval placement of an SICD projecting over the left lateral chest wall. Its lead extending medially, with presternal tunneling. At the level of the xiphoid process, is a small fluid collection without rim enhancement possibly related to the area of clinical concern. This collection measures 29 x 21 mm, and extends to the left of midline. No subfascial extension is identified. Vasculature: No aortic aneurysm. Lymph nodes: Persistent left axillary lymphadenopathy, unchanged from prior. The largest lymph node measuring 19 mm in short axis dimension. No mediastinal lymphadenopathy is detected. Bones: No acute fracture. Prior sternotomy. IMPRESSION: Small fluid collection at the level of the xiphoid process, to the left of midline without rim enhancement to suggest an abscess, as detailed above. Additional nonacute findings, as detailed above.
[2017-01-24 21:25] VITALS: BP 107/74
--- NOTE | 2017-01-25 09:34 | RAD ---
PROCEDURE: CHEST RADIOGRAPH, 1 VIEW HISTORY: chest pain COMPARISON: 11/22/2016 FINDINGS: LUNGS: No consolidation. Each costophrenic angle is blunted this appears similar. Trace pleural effusions enter trace chronic inferolateral minimal pleural thickening is consistent with this. The no interval increased pleural effusions are suggested. PLEURA: No pneumothorax or pleural fluid seen. CARDIOVASCULAR: Similar cardiomegaly. Similar midline sternal wires -superior sternal wire discontinuous. -as before interval insertion of an apparently subcutaneous meter device is noted. Pulmonary venous congestion is possibly minimally increased compared a prior studies minimal increased pulmonary venous congestion possible. OSSEOUS STRUCTURES: No significant abnormalities. VISUALIZED UPPER ABDOMEN: Surgical brittany/ device project over the left upper abdomen -similar-appearing OTHER FINDINGS: None. IMPRESSION: Interval insertion of a subcutaneous a defibrillator device. Possible minimal interval increased pulmonary venous congestion. Cardiomegaly as before
[2017-01-25] MEDS ORDERED: Insulin Lispro (humaLOG) MIX 75/25(10 ml) SC SCH (16:30)
== END 2017-01-24 21:25 | disposition home or self-care (01) ==
LOC: ED 17:44
DX: L03.90 Cellulitis, unspecified (principal); I50.9 Heart failure, unspecified
CPT/HCPCS: 71010; 71260; 80053; 85025; 87040; 96374; 96375; 99283; J0295; J1170; Q9967

== ENCOUNTER 2017-03-18 07:46 | Emergency (ER) | payer BC ==
[2017-03-18 07:46] VITALS: BMI 27.5
== END 2017-03-18 08:01 | disposition left against medical advice (07) ==
LOC: ED 07:46
DX: Z02.89 Encounter for other administrative examinations (principal); R52 Pain, unspecified

== ENCOUNTER 2017-03-18 08:02 | Emergency (ER) | payer BC ==
[2017-03-18 08:05] VITALS: BMI 27.5
[2017-03-18] MEDS ORDERED: Lidocaine/Epi 1% 1:100000 20 ML IJ ONE (08:41)
--- NOTE | 2017-03-18 09:00 | ED PDOC ---
Arrival/HPI - General Chief Complaint: Wound Check Time Seen by Provider: 03/18/17 08:31 Historian: Patient - History of Present Illness Narrative History of Present Illness (Text): 03/18/17 09:01 A 41 year old male, whose past medical history includes CHF, cardiomyopathy, insulin dependent diabetes, s/p pacemaker placement (in mid November by Dr. Calixto) and s/p DVT, PE, presents to the emergency department complaining of non healing xiphisternal wound open since november, date of incision and been worsening. He reports fibrinopurulent discharge. Denies any fever or chills in the past couple days. Denies any surrounding redness or swelling. Patient denies any other complaints at this time. 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 lower arms scar r lower leg injury from [employer] - Musculoskeletal/Rheumatological Hx Musculoskeletal Disorders: Yes Hx Falls: No Hx Fractures: Yes (FEMORAL FX ORIF REMOVAL OF HARDWARE) Hx Unsteady Gait: Yes Other/Comment: right orif and hardware removal - Gastrointestinal Hx Gastrointestinal Disorders: Yes Hx Gastroesophageal Reflux: Yes - Genitourinary/Gynecological Hx Genitourinary Disorders: Yes Other/Comment: ERECTILE DYSFUNCTION/penile implant - Psychiatric Hx Psychophysiologic Disorder: No Hx Substance Use: Yes (quit 2 yrs ago) - Surgical History Hx Open Heart Surgery: Yes (remove blot clot 2004) Hx Splenectomy: Yes (2003) Other/Comment: Femur fracture right 2003,DVT IVC FILTER,OPEN HEART SURGERY-CLOT REMOVAL FOR L VENTRICLE 2004, arthoscopic debridement, synovectomy sx for right septic knee joint and left arm picc line insertion, 09/15/2015, splenectomy 2003 , tonsillectomy 13 days ago at [facility], difibrillator implaint 2017 - Anesthesia Hx Anesthesia: Yes Hx Anesthesia Reactions: No Hx Malignant Hyperthermia: No - Suicidal Assessment Feels Threatened In Home Enviroment: No Family/Social History - Physician Review Nursing Documentation Reviewed: Yes Family/Social History: No Known Family HX Smoking Status: Never Smoked Hx Alcohol Use: Yes (rare) Hx Substance Use: Yes (quit 2 yrs ago) Substance used: Amphetamines Hx Substance Use Treatment: No Allergies/Home Meds Allergies/Adverse Reactions: Allergies No Known Allergies Allergy (Verified 03/18/17 08:36) Home Medications: Home Meds Medication Instructions Recorded Confirmed Lisinopril [Zestril] 5 mg PO DAILY 08/19/16 03/18/17 Warfarin [Coumadin] 5 mg PO DAILY 01/24/17 03/18/17 Insulin Lispro Mix 75/25 [HumaLOG 40 units SC ACD 03/18/17 03/18/17 Mix 75/25] Review of Systems - Physician Review All systems were reviewed & negative as marked: Yes - Review of Systems Constitutional: absent: Fevers, Other (chills) Skin: Other (non healing xiphisternal open wound, fibrinopurulent discharge; no surrounding redness or swelling) Physical Exam Vital Signs Reviewed: Yes Vital Signs Temp Pulse Resp BP Pulse Ox 03/18/17 08:15 99.1 F 89 20 124/81 98 Temperature: Afebrile Blood Pressure: Normal Pulse: Regular Respiratory Rate: Normal Appearance: Positive for: Well-Appearing, Non-Toxic, Comfortable Pain Distress: None Mental Status: Positive for: Alert and Oriented X 3 - Systems Exam Head: Present: Atraumatic, Normocephalic Pupils: Present: PERRL Extroacular Muscles: Present: EOMI Conjunctiva: Present: Normal Mouth: Present: Moist Mucous Membranes Neck: Present: Normal Range of Motion Respiratory/Chest: Present: Clear to Auscultation, Good Air Exchange. No: Respiratory Distress, Accessory Muscle Use Cardiovascular: Present: Regular Rate and Rhythm, Normal S1, S2. No: Murmurs Abdomen: Present: Normal Bowel Sounds. No: Tenderness, Distention, Peritoneal Signs Back: Present: Normal Inspection Upper Extremity: Present: Other (1.5- 2 cm horizontal xiphisternal wound with extruded pink, healthy flesh). No: Cyanosis, Edema Lower Extremity: Present: Normal Inspection. No: Edema Neurological: Present: GCS=15, CN II-XII Intact, Speech Normal Skin: Present: Warm, Dry, Normal Color. No: Rashes Psychiatric: Present: Alert, Oriented x 3, Normal Insight, Normal Concentration Medical Decision Making ED Course and Treatment: 03/18/17 08:57 Impression: A 41 year old male with non healing xiphisternal open wound. Plan: -- Doryx, Lidocaine/Epi -- Reassess and disposition Prior Visits: Notes and results from previous visits were reviewed. Patient was last seen in the emergency department on 01/24/17 for evaluation of post defibrillator placement, redness, pain and swelling around incision site. Progress Note: - Medication Orders Current Medication Orders: Discontinued Medications Doxycycline Hyclate (Doryx) 100 mg PO STAT STA PRN Reason: Protocol Stop: 03/18/17 08:41 Last Admin: 03/18/17 08:54 Dose: 100 mg Lidocaine/Epinephrine (Lidocaine/Epi 1% 1:121057 20 Ml) 2 ml IJ ONCE ONE Stop: 03/18/17 08:42 Last Admin: 03/18/17 08:56 Dose: 2 ml Trimethoprim/Sulfamethoxazole (Bactrim Ds Tab) 1 tab PO STAT STA PRN Reason: Protocol Stop: 03/18/17 13:58 - Scribe Statement The provider has reviewed the documentation as recorded by the Ceferino Carrasco Provider Scribe Attestation: All medical record entries made by the Scribvera were at my direction and personally dictated by me. I have reviewed the chart and agree that the record accurately reflects my personal performance of the history, physical exam, medical decision making, and the department course for this patient. I have also personally directed, reviewed, and agree with the discharge instructions and disposition. Disposition/Present on Arrival - Present on Arrival Any Indicators Present on Arrival: Yes History of DVT/PE: Yes History of Uncontrolled Diabetes: No Urinary Catheter: No History of Decub. Ulcer: No History Surgical Site Infection Following: None - Disposition Have Diagnosis and Disposition been Completed?: Yes Diagnosis: Open wound anterior abdominal wall Disposition: HOME/ ROUTINE Disposition Time: 14:03 Patient Plan: Discharge Patient Problems: Current Active Problems Problem Status Onset Open wound anterior abdominal wall Acute Condition: GUARDED Discharge Instructions (ExitCare): Chronic Wound Care (ED) Print Language: DJIBOUTIAN Additional Instructions: Please follow up with Dr. Valerie Woods your regular pmd to check your pt/inr as they haven't seen you in some time. 2) Dr. Calixto's cardiovascular surgeon whom placed your defibrillator to address this nonclosing wound. 3) return for any signs of worseining infection: a)spreading redness b) increasing pustulent drainage c)increasing pain d) fevers withno other upeprrespiratyory type symptoms. 4) Return in 14 days to have your sutures removed. maintain the wound dry for 2- 3 days,applying bacitracin on wound 2-3 x/daily . Referrals: Allyssa Lowe DO [Primary Care Provider] - Follow up with primary Valerie Woods MD [Staff Provider] - Follow up with primary Forms: [employer] (Greek)
[2017-03-18 09:05] VITALS: RESP 20
[2017-03-18] MEDS ORDERED: Tmp-Smz 800 mg-160 mg DS Tab PO STA (13:57)
[2017-03-18] MEDS ORDERED: Oxycodone/Acetaminophen 5/325 mg Tab PO STA (14:07)
[2017-03-18 14:47] VITALS: BP 125/75; PULSE 75; TEMP 98.1; O2SAT 99
== END 2017-03-18 14:46 | disposition home or self-care (01) ==
LOC: ED 08:02
DX: S31.109A Unspecified open wound of abdominal wall, unspecified quadrant without penetration into peritoneal cavity, initial encounter (principal); X58.XXXA Exposure to other specified factors, initial encounter; E11.9 Type 2 diabetes mellitus without complications; Z79.4 Long term (current) use of insulin; I50.9 Heart failure, unspecified; Z95.0 Presence of cardiac pacemaker; Z79.01 Long term (current) use of anticoagulants

== ENCOUNTER 2017-04-01 18:07 | Inpatient (IN) | payer BC ==
[2017-04-01] MEDS ORDERED: Vancomycin 1gm in NS 250ml 1 GM/250 ML BAG IVPB STA (19:13)
[2017-04-01] MEDS ORDERED: Piperacillin/Tazobact 3.375 gm 100 ML IVPB STA (19:13)
--- NOTE | 2017-04-01 19:26 | ED PDOC ---
Arrival/HPI - General Chief Complaint: Abnormal Skin Integrity Time Seen by Provider: 04/01/17 19:02 Historian: Patient - History of Present Illness Narrative History of Present Illness (Text): 04/01/17 19:10 41 year old male, whose past medical history includes CHF, cardiomyopathy, sepsis, and hypoglycemia, presents to the ED complaining of purluent dc from previous surgical wound today from post defribrillator placement, which was placed in mid November. pt is on bactrim, and finished course. Patient informs similar episode in the past with recent one being last week but was unable to get in touch with the surgeon. Patient additionally informs worsening right leg discomfort since onset. Patient denies any fever, chills, nausea, vomiting, abdominal pain, chest pain, shortness of breath or any other complaints. 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 - Musculoskeletal/Rheumatological Hx Musculoskeletal Disorders: Yes Hx Falls: No Hx Fractures: Yes (FEMORAL FX ORIF REMOVAL OF HARDWARE) Hx Unsteady Gait: Yes Other/Comment: right orif and hardware removal - Gastrointestinal Hx Gastrointestinal Disorders: Yes Hx Gastroesophageal Reflux: Yes - Genitourinary/Gynecological Hx Genitourinary Disorders: Yes Other/Comment: ERECTILE DYSFUNCTION/penile implant - Psychiatric Hx Psychophysiologic Disorder: No Hx Substance Use: Yes (quit 2 yrs ago) - Surgical History Other/Comment: Femur fracture right 2003,DVT IVC FILTER,OPEN HEART SURGERY-CLOT REMOVAL FOR L VENTRICLE 2004, arthoscopic debridement, synovectomy sx for right septic knee joint and left arm picc line insertion, 09/15/2015, splenectomy 2003 , tonsillectomy 13 days ago at [facility], difibrillator implaint 2017 - Anesthesia Hx Anesthesia: Yes Hx Anesthesia Reactions: No Hx Malignant Hyperthermia: No - Suicidal Assessment Feels Threatened In Home Enviroment: No Family/Social History - Physician Review Nursing Documentation Reviewed: Yes Family/Social History: No Known Family HX Smoking Status: Never Smoked Hx Alcohol Use: No (rare) Hx Substance Use: Yes (quit 2 yrs ago) Substance used: Amphetamines Hx Substance Use Treatment: No Allergies/Home Meds Allergies/Adverse Reactions: Allergies No Known Allergies Allergy (Verified 04/01/17 18:49) Home Medications: Home Meds Medication Instructions Recorded Confirmed Lisinopril [Zestril] 5 mg PO DAILY 08/19/16 04/01/17 Warfarin [Coumadin] 5 mg PO DAILY 01/24/17 04/01/17 Insulin Lispro Mix 75/25 [HumaLOG 40 units SC BID 03/18/17 04/01/17 Mix 75/25] Insulin Glargine, Recombina 40 unit SUBCUT HS 04/01/17 04/01/17 [Lantus] Review of Systems - Physician Review All systems were reviewed & negative as marked: Yes - Review of Systems Constitutional: Normal. absent: Fevers Eyes: Normal ENT: Normal Respiratory: Normal. absent: SOB Cardiovascular: Normal. absent: Chest Pain Gastrointestinal: Normal. absent: Abdominal Pain, Diarrhea, Nausea, Vomiting Genitourinary Male: Normal Musculoskeletal: Normal Skin: Other (open wound ) Neurological: Normal Endocrine: Normal Hemo/Lymphatic: Normal Psychiatric: Normal Physical Exam Vital Signs Reviewed: Yes Vital Signs Temp Pulse Resp BP Pulse Ox 04/01/17 21:56 79 18 94/67 L 97 04/01/17 20:34 81 18 100/60 20 L 04/01/17 18:40 98.2 F 89 19 111/70 95 Temperature: Afebrile Blood Pressure: Normal Pulse: Regular Respiratory Rate: Normal Appearance: Positive for: Well-Appearing, Non-Toxic, Comfortable Pain Distress: None Mental Status: Positive for: Alert and Oriented X 3 - Systems Exam Head: Present: Atraumatic, Normocephalic Pupils: Present: PERRL Extroacular Muscles: Present: EOMI Conjunctiva: Present: Normal Mouth: Present: Moist Mucous Membranes Neck: Present: Normal Range of Motion Respiratory/Chest: Present: Clear to Auscultation, Good Air Exchange. No: Respiratory Distress, Accessory Muscle Use Cardiovascular: Present: Regular Rate and Rhythm, Normal S1, S2. No: Murmurs Abdomen: Present: Normal Bowel Sounds. No: Tenderness, Distention, Peritoneal Signs Back: Present: Normal Inspection Upper Extremity: Present: Normal Inspection. No: Cyanosis, Edema Lower Extremity: Present: Normal Inspection, Tenderness (mild right leg tenderness to palpation ). No: Edema Neurological: Present: GCS=15, CN II-XII Intact, Speech Normal Skin: Present: Warm, Dry, Normal Color, Other (Open wound with purulent discharge on mid-bottom chest ). No: Rashes Psychiatric: Present: Alert, Oriented x 3, Normal Insight, Normal Concentration Medical Decision Making ED Course and Treatment: 04/01/17 19:31 Impression: 41 year old male presents to the Emergency department for open wound. failure of outpt tx- also c/o of right leg pain r/o dvt Plan: -- Labs -- Vancomycin -- Piperacillin -- US Lower extremity -- Reassess and disposition Progress Notes: 04/01/17 22:00 noted inr. no bleeding. no indication for ffp vit k. dvt study neg. antibiotics dosed. discussed with dr ambreen damon. - Lab Interpretations Lab Results: 04/01/17 19:25 04/01/17 19:25 Lab Results 04/01/17 19:25: Sodium 141, Potassium 4.6, Chloride 100, Carbon Dioxide 26, Anion Gap 20, BUN 14, Creatinine 0.6 L, Est GFR ( Amer) > 60, Est GFR ( Non-Af Amer) > 60, Random Glucose 240 H, Calcium 10.1, Total Bilirubin 0.5, AST 25, ALT 39, Alkaline Phosphatase 190 H D, Total Protein 6.6, Albumin 4.2, Globulin 2.4, Albumin/Globulin Ratio 1.7 04/01/17 19:25: PT 83.0 H, INR 7.00 H*, APTT 117.3 H* 04/01/17 19:25: WBC 13.5 H, RBC 4.81, Hgb 13.8 L, Hct 42.0, MCV 87.3, MCH 28.7, MCHC 32.9, RDW 14.6 H, Plt Count 541 H, MPV 10.9, Gran % 53.4, Lymph % (Auto) 32.3, [place] % (Auto) 13.0 H, Eos % (Auto) 0.7 L, Baso % (Auto) 0.6, Gran # 7.19 H , Lymph # (Auto) 4.3 H, [place] # (Auto) 1.8 H, Eos # (Auto) 0.1, Baso # (Auto) 0.08 - RAD Interpretation Radiology Orders: 04/01/17 19:13 DUPLEX LOWER EXTRM VEIN RIGHT [US] Stat - Medication Orders Current Medication Orders: Acetaminophen (Tylenol 325mg Tab) 650 mg PO Q6H PRN PRN Reason: Fever >100.4 F Last Admin: 04/02/17 00:53 Dose: 650 mg MARQUISE Pain/Vitals Document 04/02/17 00:53 RM (Rec: 04/02/17 00:54 RM [id number]) Pain Reassessment Is This A Pain ReAssessment? No Sleep Is patient sleeping during reassessment? No Presence of Pain Presence of Pain Yes Pain Scale Used Pain Scale Used Numeric Location Left, Right or Bilateral Right Pain Location Body Site Leg Description Sharp Re-Assess: MARQUISE Pain/Vitals Document 04/02/17 01:53 RM (Rec: 04/02/17 03:14 RM [id number]) Pain Reassessment Is This A Pain ReAssessment? Yes Sleep Is patient sleeping during reassessment? No Presence of Pain Presence of Pain Yes Docusate Sodium (Colace) 100 mg PO DAILY [facility] Last Admin: 04/04/17 10:42 Dose: 100 mg Hydromorphone HCl (Dilaudid) 2 mg IVP Q4H PRN PRN Reason: Pain, severe (8-10) Last Admin: 04/04/17 21:49 Dose: 2 mg MAR Pain Assessment Document 04/04/17 21:49 RS (Rec: 04/04/17 21:49 RS [id number]) Pain Reassessment Is this a pain reassessment? No IVP Administration Document 04/04/17 21:49 RS (Rec: 04/04/17 21:49 RS [id number]) Charges for Administration # of IVP Administrations 1 Ceftaroline Fosamil 600 mg/ (Sodium Chloride) 100 mls @ 250 mls/hr IV Q12 [facility] PRN Reason: Protocol Stop: 04/12/17 10:01 Last Admin: 04/04/17 21:59 Dose: 250 mls/hr eMAR Start Stop Document 04/04/17 21:59 RS (Rec: 04/04/17 22:00 RS [id number]) Intravenous Solution Start Date 04/04/17 Start Time 22:00 End Date 04/04/17 End time 22:24 Total Infusion Time 24 Insulin Detemir (Levemir) 20 unit SC Q12 [facility] Last Admin: 04/04/17 21:59 Dose: 20 unit Subcutaneous Administrations Document 04/04/17 21:59 RS (Rec: 04/04/17 21:59 RS [id number]) Charges for Administration # of Subcutaneous Administrations 1 Insulin Lispro Protam/Lispro Human (Humalog Mix 75/25) 40 units SC BID [facility] Last Admin: 04/04/17 17:30 Dose: 40 units MAR Blood Glucose Document 04/04/17 17:30 MV (Rec: 04/04/17 17:30 MV [id number]) Blood Glucose Finger Stick Blood Glucose (70-120) 241 Subcutaneous Administrations Document 04/04/17 17:30 MV (Rec: 04/04/17 17:30 MV [id number]) Injection Site MAR Injection Site Right Arm Charges for Administration # of Subcutaneous Administrations 1 Lactic Acid (Lac-Hydrin 12% Cream (140 G)) 0 ea TOP Q6 [facility] Last Admin: 04/04/17 03:42 Dose: Not Given Non-Admin Reason: Patient Asleep Lidocaine (Lidoderm) 1 ea TD DAILY [facility] Last Admin: 04/04/17 10:40 Dose: 1 ea MAR Transdermal Patch Site Document 04/04/17 10:40 MV (Rec: 04/04/17 10:41 MV [id number]) Transdermal Patch Site Transdermal Patch Site Right Hip Lisinopril (Zestril) 5 mg PO DAILY [facility] Last Admin: 04/04/17 10:40 Dose: 5 mg MAR Pulse and Blood Pressure Document 04/04/17 10:40 MV (Rec: 04/04/17 10:40 MV [id number]) Pulse Pulse Rate (60-90) 98 Blood Pressure Blood Pressure (100/60-150/90) 108/75 Oxycodone/Acetaminophen (Percocet 10/325 Mg Tab) 1 tab PO Q6H PRN PRN Reason: Pain, moderate (4-7) Last Admin: 04/04/17 19:54 Dose: 1 tab MAR Pain Assessment Document 04/04/17 19:54 RS (Rec: 04/04/17 19:54 RS [id number]) Pain Reassessment Is this a pain reassessment? No Sleep Is patient sleeping during reassessment? No Presence of Pain Presence of Pain Yes Location Left, Right or Bilateral Right Upper or Lower Upper Pain Location Body Site Leg Discontinued Medications Acetaminophen (Tylenol 325mg Tab) 975 mg PO STAT STA Stop: 04/01/17 21:39 Last Admin: 04/01/17 21:40 Dose: Not Given Non-Admin Reason: Patient Refused Hydromorphone HCl (Dilaudid) 2 mg IVP Q4H PRN PRN Reason: Pain, severe (8-10) Vancomycin HCl (Vancomycin 1gm) 1 gm in 250 mls @ 167 mls/hr IVPB STAT STA PRN Reason: Protocol Stop: 04/01/17 20:42 Last Admin: 04/01/17 20:33 Dose: 167 mls/hr eMAR Start Stop Document 04/01/17 20:33 RG (Rec: 04/01/17 20:34 RG [id number]) Intravenous Solution Start Date 04/01/17 Start Time 20:34 Piperacillin Sod/Tazobactam Sod (Zosyn 3.375 In Ns 100ml) 100 mls @ 200 mls/hr IVPB STAT STA PRN Reason: Protocol Stop: 04/01/17 19:42 Last Admin: 04/01/17 19:34 Dose: 200 mls/hr eMAR Start Stop Document 04/01/17 19:34 AD (Rec: 04/01/17 19:35 AD [facility] [id number]) Intravenous Solution Start Date 04/01/17 Start Time 19:35 Piperacillin Sod/Tazobactam Sod (Zosyn 2.25 Gm In 0.9% 100 Ml) 2.25 gm in 100 mls @ 100 mls/hr IVPB Q6 [facility] PRN Reason: Protocol Stop: 04/02/17 06:59 Last Admin: 04/02/17 05:33 Dose: 100 mls/hr eMAR Start Stop Document 04/02/17 05:33 RM (Rec: 04/02/17 05:33 RM [id number]) Intravenous Solution Start Date 04/02/17 Start Time 05:33 End Date 04/02/17 End time 06:33 Total Infusion Time 60 Vancomycin HCl (Vancomycin 1gm) 1 gm in 250 mls @ 167 mls/hr IVPB Q12H [place] PRN Reason: Protocol Stop: 04/11/17 06:46 Last Admin: 04/02/17 07:20 Dose: 167 mls/hr eMAR Start Stop Document 04/02/17 07:20 RM (Rec: 04/02/17 07:21 RM [id number]) Intravenous Solution Start Date 04/02/17 Start Time 07:21 End Date 04/02/17 End time 08:51 Total Infusion Time 90 Ceftaroline Fosamil 600 mg/ (Sodium Chloride) 250 mls @ 250 mls/hr IV Q12 [place] PRN Reason: Protocol Stop: 04/12/17 10:01 Last Admin: 04/03/17 10:23 Dose: 250 mls/hr eMAR Start Stop Document 04/03/17 10:23 MV (Rec: 04/03/17 10:23 MV [id number]) Intravenous Solution Start Date 04/03/17 Start Time 10:23 Ibuprofen (Motrin Tab) 600 mg PO ONCE ONE Stop: 04/02/17 08:04 Last Admin: 04/02/17 08:26 Dose: 600 mg Re-Assess: MAR Pain/Vitals Document 04/02/17 09:26 ML (Rec: 04/02/17 10:18 ML [facility] [id number]) Pain Reassessment Is This A Pain ReAssessment? Yes Presence of Pain Presence of Pain No Morphine Sulfate (Morphine) 2 mg IVP Q4H PRN PRN Reason: Pain, severe (8-10) Last Admin: 04/03/17 14:16 Dose: 2 mg IVP Administration Document 04/03/17 14:16 BIR (Rec: 04/03/17 14:16 BIR [id number]) Charges for Administration # of IVP Administrations 1 Morphine Sulfate (Morphine) 2 mg IVP Q4H PRN PRN Reason: Pain, severe (8-10) Last Admin: 04/03/17 17:43 Dose: 2 mg [facility] Pain Assessment Document 04/03/17 17:43 MV (Rec: 04/03/17 17:43 MV [id number]) Pain Reassessment Is this a pain reassessment? No IVP Administration Document 04/03/17 17:43 MV (Rec: 04/03/17 17:43 MV [id number]) Charges for Administration # of IVP Administrations 1 Oxycodone/Acetaminophen (Percocet 5/325 Mg Tab) 1 tab PO Q6H PRN PRN Reason: Pain, moderate (4-7) Stop: 04/05/17 08:10 Last Admin: 04/02/17 08:26 Dose: 1 tab [facility] Pain Assessment Document 04/02/17 08:26 ML (Rec: 04/02/17 08:26 ML [id number]) Pain Reassessment Is this a pain reassessment? No Presence of Pain Presence of Pain Yes Re-Assess: [facility] Pain Assessment Document 04/02/17 09:26 ML (Rec: 04/02/17 10:18 ML [facility] [id number]) Pain Reassessment Is this a pain reassessment? Yes Presence of Pain Presence of Pain No Tramadol HCl (Ultram) 50 mg PO STAT STA Stop: 04/01/17 22:10 Last Admin: 04/01/17 22:29 Dose: 50 mg [facility] Pain Assessment Document 04/01/17 22:29 AD (Rec: 04/01/17 22:29 AD [facility] [id number]) Pain Reassessment Is this a pain reassessment? No Presence of Pain Presence of Pain Yes Description Intensity of Pain at present 7 Pain Behavior Facial Grimacing Tramadol HCl (Ultram) 50 mg PO ONCE ONE Stop: 04/02/17 16:45 Last Admin: 04/02/17 16:45 Dose: Not Given Non-Admin Reason: Patient Refused - Scribe Statement The provider has reviewed the documentation as recorded by the Scribe Femi Rodas. All medical record entries made by the Scribe were at my direction and personally dictated by me. I have reviewed the chart and agree that the record accurately reflects my personal performance of the history, physical exam, medical decision making, and the department course for this patient. I have also personally directed, reviewed, and agree with the discharge instructions and disposition. Disposition/Present on Arrival - Present on Arrival Any Indicators Present on Arrival: No History of DVT/PE: Yes History of Uncontrolled Diabetes: No Urinary Catheter: No History of Decub. Ulcer: No History Surgical Site Infection Following: None - Disposition Have Diagnosis and Disposition been Completed?: Yes Diagnosis: Cellulitis, Supratherapeutic INR Disposition: HOSPITALIZED Disposition Time: 22:01 Patient Problems: Current Active Problems Problem Status Onset Cellulitis Acute Supratherapeutic INR Acute Condition: STABLE
[2017-04-01 19:42] LABS: BASO # 0.08 K/mm3 (0.0-2.0); BASO % 0.6 % (0.0-3.0); EOS # 0.1 (0.0-0.7); EOS % 0.7 % (1.5-5.0); GRAN # 7.19 (1.4-6.5); GRAN % 53.4 % (50.0-68.0); HEMOGLOBIN 13.8 g/dL (14.0-18.0); LYMPH # 4.3 (1.2-3.4); LYMPH % 32.3 % (22.0-35.0); MEAN CELL VOLUME 87.3 fl (80.0-105.0); MEAN CORPUSCULAR HEMOGLOBIN 28.7 pg (25.0-35.0); MEAN CORPUSCULAR HGB CONC 32.9 g/dl (31.0-37.0); MEAN PLATELET VOLUME 10.9 fl (7.0-11.0); MONO # 1.8 (0.1-0.6); RBC 4.81 10^6/uL (3.5-6.1); RED CELL DISTRIBUTION WIDTH 14.6 % (11.5-14.5); WHITE BLOOD COUNT 13.5 10^3/ul (4.5-11.0)
[2017-04-01 19:56] LABS: ALB/GLOB RATIO 1.7 (1.1-1.8); ALBUMIN 4.2 g/dL (3.0-4.8); ALT/SGPT 39 U/L (7-56); AST/SGOT 25 U/L (17-59); BLOOD UREA NITROGEN 14 mg/dL (7-21); CALCIUM 10.1 mg/dL (8.4-10.5); GFR AFRICAN-AMERICAN > 60; GFR NON-AFRICAN AMERICAN > 60
[2017-04-01 20:26] LABS: PARTIAL THROMBOPLASTIN TIME 117.3 Seconds (25.1-36.5)
[2017-04-02] MEDS: Insulin Detemir 100 units/ml Vial (Levemir) SC SCH ×3 (00:15→21:12)
[2017-04-02] MEDS: Piperacillin/Tazobact 2.25gm 2.25 GM/100 ML BAG IVPB SCH ×2 (00:15→05:33)
[2017-04-02 00:41] VITALS: BMI 27.3
[2017-04-02] MEDS ORDERED: Vancomycin 1gm in NS 250ml 1 GM/250 ML BAG IVPB SCH (06:45)
[2017-04-02 07:48] LABS: BASO # 0.05 K/mm3 (0.0-2.0); BASO % 0.4 % (0.0-3.0); EOS # 0.2 (0.0-0.7); EOS % 1.4 % (1.5-5.0); GRAN # 5.41 (1.4-6.5); HEMOGLOBIN 12.9 g/dL (14.0-18.0); LYMPH # 4.1 (1.2-3.4); LYMPH % 35.2 % (22.0-35.0); MEAN CELL VOLUME 87.1 fl (80.0-105.0); MEAN CORPUSCULAR HEMOGLOBIN 28.3 pg (25.0-35.0); MEAN CORPUSCULAR HGB CONC 32.5 g/dl (31.0-37.0); MEAN PLATELET VOLUME 10.8 fl (7.0-11.0); RBC 4.56 10^6/uL (3.5-6.1); RED CELL DISTRIBUTION WIDTH 14.8 % (11.5-14.5); WHITE BLOOD COUNT 11.7 10^3/ul (4.5-11.0)
[2017-04-02 07:57] LABS: BLOOD UREA NITROGEN 13 mg/dL (7-21); CALCIUM 9.3 mg/dL (8.4-10.5); GFR AFRICAN-AMERICAN > 60; GFR NON-AFRICAN AMERICAN > 60
[2017-04-02] MEDS ORDERED: Oxycodone/Acetaminophen 5/325 mg Tab PO PRN (08:09)
[2017-04-02 08:44] LABS: PROTHROMBIN TIME 100.2 SECONDS (9.4-12.5)
[2017-04-02 08:45] LABS: INR 8.34 (0.93-1.08)
[2017-04-02] MEDS: Insulin Lispro (humaLOG) MIX 75/25(10 ml) SC SCH ×2 (12:21→17:24)
--- NOTE | 2017-04-02 17:01 | HP ---
HISTORY OF PRESENT ILLNESS: Ms. Jose is a 41-year-old male, admitted to the hospital with purulent discharge from the surgical wound from defibrillator placement in November. He was on Bactrim as outpatient, finished the course, but still there continued to be the pus depressed discharge. He has history of hypercoagulable state with factor V Leiden, noncompliant. Currently on Coumadin with supratherapeutic INR. Also complaining of right leg discomfort. Doppler of right lower extremity negative for DVT. No fever, no chills, no rigors. PAST MEDICAL HISTORY: Congestive cardiac failure, multiple PE in the past, factor V Leiden, cardiomyopathy, sepsis, diabetes mellitus type 1, GE reflux. PAST SURGICAL HISTORY: Defibrillator placement, IVC filter placement, open-heart surgery, removal of clot from the ventricle in 2004, right knee surgery, synovectomy for septic knee, splenectomy, tonsillectomy, defibrillator placement in 2016. PERSONAL HISTORY: History of drug abuse and amphetamines, quit 2 years ago. Smoking, never smoked. FAMILY HISTORY: Noncontributory. ALLERGIES: NO KNOWN DRUG ALLERGIES. HOME MEDICATIONS: Lisinopril 5 daily, Coumadin 5 mg daily, insulin. REVIEW OF SYSTEMS: As per HPI. Rest of 12-point review of systems reviewed and negative. PHYSICAL EXAMINATION: GENERAL: Comfortable in bed, in no acute distress. VITAL SIGNS: Temperature 98.2, heart rate 89 per minute, respiratory rate 18 per minute, blood pressure 110/70, pulse ox is 95% on room air. HEENT: Normal. NECK: No lymphadenopathy. CHEST: Air entry present and equal bilaterally. No added sound. CARDIOVASCULAR: S1 and S2 normal. No murmur. No gallop. CHEST: There is open wound in the midline. Erythema on the left side of the chest where the defibrillator is. ABDOMEN: Soft, nontender. No hepatosplenomegaly. EXTREMITIES: Bilateral lower extremity normal. No edema. LABORATORY DATA: White count 13.5, hemoglobin 13.8, hematocrit 42, glucose 554. Sodium 141, potassium 4.6, BUN 14, creatinine 0.6, glucose 240. ASSESSMENT: 1. Chest wall infection of the surgical wound for defibrillator placement. 2. Factor V Leiden, hypercoagulable state. 3. Supratherapeutic INR. 4. Congestive heart failure. 5. History of cardiomyopathy. PLAN: He will be admitted to the hospital. ID consultation, Dr. Reed, requested. He is currently on ceftaroline and he received one dose of vancomycin in the ER. Complaining of pain in the right lower extremity. Percocet p.r.n. 10 mg/325 q. 6 hours p.r.n. for pain. Continue Zestril 5 mg daily, insulin levemir 20 mg q. 12 hours, Mixtard 40 mg subcu b.i.d. Continue to monitor glucose fingerstick. We will request the Surgery consultation, Dr. Izaguirre for chest wound. Valerie Woods MD MTDD
[2017-04-02] MEDS: Oxycodone/Acetaminophen 10/325 mg Tab PO PRN (17:23)
--- NOTE | 2017-04-02 19:15 | CON ---
DATE: 04/02/2017 CHIEF COMPLAINT: Erythematous defibrillator site times several days. HISTORY OF PRESENT ILLNESS: This is a 41-year-old male, known to me from previous admissions with a past medical history of diabetes mellitus, dilated cardiomyopathy, systolic congestive heart failure with a reduced ejection fraction of 15%, history of left ventricular thrombus and a history of factor V Leiden deficiency and coronary artery disease and coronary artery bypass graft and splenectomy with a right femoral ORIF, who had a defibrillator placed in 11/2016, now is admitted with erythematous site at the defibrillator site. He states that it became past few days and swollen with edema. He denies any fevers and chills. He denies any chest pain, shortness of breath or cough. No hemoptysis. No abdominal pain or diarrhea or constipation. PAST MEDICAL HISTORY: Significant for factor V Leiden deficiency, left ventricular thrombus, ejection fraction 15%, systolic congestive heart failure, dilated cardiomyopathy and coronary artery disease, diabetes mellitus. The patient had a history of Klebsiella bacteremia. PAST SURGICAL HISTORY: Significant for a recent defibrillator placement in 11/2016. The patient has coronary artery bypass graft and right femoral ORIF and splenectomy. The patient has no known rash. MEDICATIONS AT HOME: Include insulin and lisinopril and Coumadin. PHYSICAL EXAMINATION: GENERAL: The patient is in bed, in no acute distress, answering questions appropriately. VITAL SIGNS: Temperature of 98, blood pressure is 100/60, respiratory rate 20, heart rate of 81. HEENT: Examination of HEENT is unremarkable. NECK: Supple. LUNGS: Have decreased breath sounds. HEART: Normal S1, S2. ABDOMEN: Soft, nontender. No organomegaly. No rebound. SKIN: PEG tube site appears to be clean. On the lateral aspect of the chest where the defibrillator is erythematous with edema, clearly infected. LABORATORY DATA: Laboratory examination reveals the patient has a white count of 13,500, hemoglobin of 13 and platelets of 541. The patient has 53% granulocytosis, 32% lymphocytosis. Coagulation is noted with an INR of 7 and chemistries reveal a BUN of 14, creatinine of 0.6. Review of the chemistries, the patient's creatinine has been mildly elevated on 11/24/2014 up to 1.4. The patient has alk phos of 190. Emergency room chart is the only available information at this time. ASSESSMENT AND PLAN: A 41-year-old male with diabetes mellitus, dilated cardiomyopathy, systemic ejection fraction of 15%, left ventricular thrombus, factor V Leiden deficiency, coronary artery disease and history of Klebsiella bacteremia, now with a defibrillator site infection and cellulitis with leukocytosis of 13,500 with a history of renal insufficiency. We will start the patient on ceftaroline 600 mg IV q. 12 hours and discontinue the Zosyn and discontinue the vancomycin. Concerned about renal toxicity in this patient. Pending panculture results and clinical response and we will also order blood cultures x2. will order ct of right thigh because of complaint of right thigh pain Ronnie Reed MD [id number]
--- NOTE | 2017-04-02 20:18 | CP.PCM.CON ---
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 Patient states that 2 weeks after his surgery a dressing that held the wound together came off, leaving a wound through which some beefy red tissue protruded. When he got it evaluated he was told it would heal by secondary intention. Patient came to [facility] 2 weeks ago with the unhealed wound and got it repaired in the ER with sutures. Yesterday the sutures came apart and his wound recurred so he came to the ER. Patient denies fevers, chills, chest pain, SOB, nausea, vomiting, or any other contributing symtpoms. Patient says that the wound secretes thick white fluid and small amounts of blood, but is not red or inflammed. Review of Systems - Review of Systems All systems: reviewed and no additional remarkable complaints except - Constitutional Constitutional: As Per HPI - Cardiovascular Cardiovascular: As Per HPI - Respiratory Respiratory: absent: Cough, Dyspnea, Wheezing - Gastrointestinal Gastrointestinal: absent: Abdominal Pain, Belching, Nausea, Vomiting - Musculoskeletal Musculoskeletal: Radiating Pain into Limb (right posterior thigh) - Integumentary Integumentary: As Per HPI - Neurological Neurological: Radicular Pain (right leg). absent: Numbness - Hematologic/Lymphatic Hematologic: Easy Bleeding Past Patient History - Infectious Disease Hx of Infectious Diseases: None - Tetanus Immunizations Tetanus Immunization: Up to Date (3 years ago) - Past Medical History & Family History Past Medical History?: Yes - Past Social History Smoking Status: Never Smoked - CARDIAC Hx Cardiac Disorders: Yes Hx Congestive Heart Failure: Yes Hx Internal Defibrillator: Yes - PULMONARY Hx Respiratory Disorders: Yes Hx Pneumonia: Yes - NEUROLOGICAL Hx Neurological Disorder: No - HEENT Hx HEENT Problems: No - RENAL Hx Chronic Kidney Disease: No - ENDOCRINE/METABOLIC Hx Endocrine Disorders: Yes Hx Diabetes Mellitus Type 1: Yes - HEMATOLOGICAL/ONCOLOGICAL Hx Blood Disorders: Yes Other/Comment: Factor V Leiden - INTEGUMENTARY Hx Dermatological Problems: Yes Hx Psoriasis: Yes - MUSCULOSKELETAL/RHEUMATOLOGICAL Hx Musculoskeletal Disorders: Yes Hx Arthritis: Yes Hx Back Pain: Yes Hx Falls: No - GASTROINTESTINAL Hx Gastrointestinal Disorders: No - GENITOURINARY/GYNECOLOGICAL Hx Genitourinary Disorders: No - PSYCHIATRIC Hx Psychophysiologic Disorder: No Hx Substance Use: No - SURGICAL HISTORY Hx Surgeries: Yes Hx Open Heart Surgery: Yes Hx Splenectomy: Yes Other/Comment: Tonsils. Synovectomy - ANESTHESIA Hx Anesthesia: Yes Hx Anesthesia Reactions: No Hx Malignant Hyperthermia: No Meds Allergies/Adverse Reactions: Allergies Allergy/AdvReac Type Severity Reaction Status Date / Time No Known Allergies Allergy Verified 04/01/17 18:49 - Medications Medications: Current Medications Acetaminophen (Tylenol 325mg Tab) 650 mg PO Q6H PRN PRN Reason: Fever >100.4 F Last Admin: 04/02/17 00:53 Dose: 650 mg Ceftaroline Fosamil 600 mg/ (Sodium Chloride) 250 mls @ 250 mls/hr IV Q12 [facility] PRN Reason: Protocol Stop: 04/12/17 10:01 Last Admin: 04/02/17 11:33 Dose: 250 mls/hr Insulin Detemir (Levemir) 20 unit SC Q12 [facility] Last Admin: 04/02/17 11:29 Dose: 20 unit Insulin Lispro Protam/Lispro Human (Humalog Mix 75/25) 40 units SC BID [facility] Last Admin: 04/02/17 17:24 Dose: 40 units Lisinopril (Zestril) 5 mg PO DAILY [facility] Last Admin: 04/02/17 11:31 Dose: Not Given Oxycodone/Acetaminophen (Percocet 10/325 Mg Tab) 1 tab PO Q6H PRN PRN Reason: Pain, moderate (4-7) Last Admin: 04/02/17 17:23 Dose: 1 tab Physical Exam - Constitutional Appears: Well, Non-toxic, No Acute Distress - Head Exam Head Exam: ATRAUMATIC, NORMOCEPHALIC - Eye Exam Eye Exam: Normal appearance. absent: Conjunctival injection, Scleral icterus - ENT Exam ENT Exam: Mucous Membranes Moist, Normal Oropharynx - Respiratory Exam Respiratory Exam: Clear to Auscultation Bilateral, NORMAL BREATHING PATTERN. absent: Accessory Muscle Use - Cardiovascular Exam Cardiovascular Exam: RRR, +S1, +S2 - GI/Abdominal Exam GI & Abdominal Exam: Soft. absent: Distended, Tenderness - Extremities Exam Extremities exam: Positive for: pedal pulses present. Negative for: calf tenderness, pedal edema Additional comments: no swelling or erythema of hte right leg - Neurological Exam Neurological exam: Alert, Oriented x3 - Psychiatric Exam Psychiatric exam: Normal Affect, Normal Mood - Skin Additional comments: 2cm wound in the skin of the chest with red, beefy tissue protruding from it. Small amount of thick, white drainage expressible, no surrounding erythema, fluctuance or active bleeding Results - Vital Signs Recent Vital Signs: Last Vital Signs Temp 97.9 F 04/02/17 17:05 Pulse 89 04/02/17 17:05 Resp 20 04/02/17 17:05 BP 109/75 04/02/17 17:05 Pulse Ox 97 04/02/17 17:05 - Labs Result Diagrams: 04/02/17 07:00 04/02/17 07:00 Labs: Laboratory Results - last 24 hr 04/01/17 04/02/17 04/02/17 23:51 01:53 02:57 WBC RBC Hgb Hct MCV MCH MCHC RDW Plt Count MPV Gran % Lymph % (Auto) [place] % (Auto) Eos % (Auto) Baso % (Auto) Gran # Lymph # (Auto) [place] # (Auto) Eos # (Auto) Baso # (Auto) ESR PT INR Sodium Potassium Chloride Carbon Dioxide Anion Gap BUN Creatinine Est GFR ( Amer) Est GFR (Non-Af Amer) POC Glucose (mg/dL) 60 L 35 L* 134 H Random Glucose Calcium C-React Prot High Sens 04/02/17 04/02/17 04/02/17 07:00 07:00 07:00 WBC 11.7 H RBC 4.56 Hgb 12.9 L Hct 39.7 L MCV 87.1 MCH 28.3 MCHC 32.5 RDW 14.8 H Plt Count 509 H MPV 10.8 Gran % 46.0 L Lymph % (Auto) 35.2 H [place] % (Auto) 17.0 H Eos % (Auto) 1.4 L Baso % (Auto) 0.4 Gran # 5.41 Lymph # (Auto) 4.1 H [place] # (Auto) 2.0 H Eos # (Auto) 0.2 Baso # (Auto) 0.05 ESR PT 100.2 H INR 8.34 H* Sodium 138 Potassium 4.3 Chloride 102 Carbon Dioxide 25 Anion Gap 16 BUN 13 Creatinine 0.5 L Est GFR ( Amer) > 60 Est GFR (Non-Af Amer) > 60 POC Glucose (mg/dL) Random Glucose 71 Calcium 9.3 C-React Prot High Sens 04/02/17 04/02/17 04/02/17 07:55 09:15 09:15 WBC RBC Hgb Hct MCV MCH MCHC RDW Plt Count MPV Gran % Lymph % (Auto) [place] % (Auto) Eos % (Auto) Baso % (Auto) Gran # Lymph # (Auto) [place] # (Auto) Eos # (Auto) Baso # (Auto) ESR 14 PT INR Sodium Potassium Chloride Carbon Dioxide Anion Gap BUN Creatinine Est GFR ( Amer) Est GFR (Non-Af Amer) POC Glucose (mg/dL) 50 L Random Glucose Calcium C-React Prot High Sens > 15.00 H 04/02/17 04/02/17 11:29 16:24 WBC RBC Hgb Hct MCV MCH MCHC RDW Plt Count MPV Gran % Lymph % (Auto) [place] % (Auto) Eos % (Auto) Baso % (Auto) Gran # Lymph # (Auto) [place] # (Auto) Eos # (Auto) Baso # (Auto) ESR PT INR Sodium Potassium Chloride Carbon Dioxide Anion Gap BUN Creatinine Est GFR ( Amer) Est GFR (Non-Af Amer) POC Glucose (mg/dL) 172 H 122 H Random Glucose Calcium C-React Prot High Sens Assessment & Plan - Assessment and Plan (Free Text) Assessment: 41M with chronic chest wound from defibrillator insertion Plan: -Possible bed side debridement and closure 04/03 -No need for emergent surgical intervention -F/U wound cultures -Continue current antibiotics per ID recommendations -Continue vaseline gauze and 4x4 dressing -PRN pain medication Discussed with Dr. Izaguirre, further recs per him Carol Osborne, PGY2
[2017-04-02] MEDS: Morphine 5 MG/ML SYRINGE IVP PRN (21:13)
[2017-04-03] MEDS: Morphine 5 MG/ML SYRINGE IVP PRN ×4 (01:27→14:16)
[2017-04-03 06:34] LABS: HEMOGLOBIN 13.6 g/dL (14.0-18.0); MEAN CELL VOLUME 86.5 fl (80.0-105.0); MEAN CORPUSCULAR HEMOGLOBIN 28.3 pg (25.0-35.0); MEAN CORPUSCULAR HGB CONC 32.8 g/dl (31.0-37.0); MEAN PLATELET VOLUME 10.9 fl (7.0-11.0); RBC 4.8 10^6/uL (3.5-6.1); RED CELL DISTRIBUTION WIDTH 14.3 % (11.5-14.5); WHITE BLOOD COUNT 20.2 10^3/ul (4.5-11.0)
[2017-04-03 06:49] LABS: PROTHROMBIN TIME 52.4 SECONDS (9.4-12.5)
[2017-04-03 06:50] LABS: INR 4.42 (0.93-1.08)
[2017-04-03 07:13] LABS: BLOOD UREA NITROGEN 7 mg/dL (7-21); CALCIUM 9.8 mg/dL (8.4-10.5); GFR AFRICAN-AMERICAN > 60; GFR NON-AFRICAN AMERICAN > 60
--- NOTE | 2017-04-03 08:27 | CP.PCM.PN ---
Subjective - Date & Time of Evaluation Date of Evaluation: 04/03/17 Time of Evaluation: 08:20 - Subjective Subjective: GENERAL SURGERY CONSULT PROGRESS NOTE FOR DR. WYLIE. Patient has been seen and examined. No overnight events have been reported. Patient complains of minimal pain at his midline chest wound. He complains of mild pruritis at his surgical scar on the left chest wall. He states he has been scratching it. He denies any fevers or chills. He does complains of sharp pain in his right popliteal fossa that radiates upward. Objective - Vital Signs/Intake and Output Vital Signs (last 24 hours): Temp Pulse Resp BP Pulse Ox 98.8 F 95 H 20 125/82 97 04/03/17 06:00 04/03/17 06:00 04/03/17 06:00 04/03/17 06:00 04/03/17 06:00 Intake and Output: 04/03/17 04/03/17 06:59 18:59 Intake Total 840 Output Total 600 Balance 240 - Medications Medications: Current Medications Acetaminophen (Tylenol 325mg Tab) 650 mg PO Q6H PRN PRN Reason: Fever >100.4 F Last Admin: 04/02/17 00:53 Dose: 650 mg Docusate Sodium (Colace) 100 mg PO DAILY [facility] Ceftaroline Fosamil 600 mg/ (Sodium Chloride) 250 mls @ 250 mls/hr IV Q12 [facility] PRN Reason: Protocol Stop: 04/12/17 10:01 Last Admin: 04/02/17 21:13 Dose: 250 mls/hr Insulin Detemir (Levemir) 20 unit SC Q12 [facility] Last Admin: 04/02/17 21:12 Dose: 20 unit Insulin Lispro Protam/Lispro Human (Humalog Mix 75/25) 40 units SC BID [facility] Last Admin: 04/02/17 17:24 Dose: 40 units Lactic Acid (Lac-Hydrin 12% Cream (140 G)) 0 ea TOP Q6 [facility] Lisinopril (Zestril) 5 mg PO DAILY [facility] Last Admin: 04/02/17 11:31 Dose: Not Given Morphine Sulfate (Morphine) 2 mg IVP Q4H PRN PRN Reason: Pain, severe (8-10) Last Admin: 04/03/17 05:48 Dose: 2 mg Oxycodone/Acetaminophen (Percocet 10/325 Mg Tab) 1 tab PO Q6H PRN PRN Reason: Pain, moderate (4-7) Last Admin: 04/02/17 17:23 Dose: 1 tab - Labs Labs: 04/03/17 05:45 04/03/17 05:45 PT 52.4 SECONDS (9.4-12.5) H 04/03/17 05:45 INR 4.42 (0.93-1.08) H* 04/03/17 05:45 APTT 117.3 Seconds (25.1-36.5) H* 04/01/17 19:25 - Additional Findings Additional findings: - Constitutional Appears: Well, Non-toxic, No Acute Distress - Head Exam Head Exam: ATRAUMATIC, NORMOCEPHALIC - Eye Exam Eye Exam: Normal appearance. absent: Conjunctival injection, Scleral icterus - ENT Exam ENT Exam: Mucous Membranes Moist, Normal Oropharynx - Respiratory Exam Respiratory Exam: Clear to Auscultation Bilateral, NORMAL BREATHING PATTERN. absent: Accessory Muscle Use - Cardiovascular Exam Cardiovascular Exam: RRR, +S1, +S2 - GI/Abdominal Exam GI & Abdominal Exam: Soft. absent: Distended, Tenderness - Extremities Exam Extremities exam: Positive for: pedal pulses present. Negative for: calf tenderness, pedal edema Additional comments: Right popliteal tendernes no swelling or erythema of the right leg - Neurological Exam Neurological exam: Alert, Oriented x3 - Psychiatric Exam Psychiatric exam: Normal Affect, Normal Mood - Skin Additional comments: 2cm wound in the skin of the chest with red, beefy tissue protruding from it, no drainage, no surrounding erythema, fluctuance or active bleeding Surgical Scar in the left chest wall with surrounding erythema. No drainage, fluctulance, or active bleeding. Assessment and Plan - Assessment and Plan (Free Text) Assessment: 41M with chronic chest wound from defibrillator insertion -Vital Signs are Stable. Afebrile. -White Count Elevated at 20.2 -INR 4.42 Plan: -Lac-Hydrin Cream for chest wall scar. -No need for emergent surgical intervention -Pt. Needs evaluation by heat treat worker for possible removal of defribillator. Consulted Dr. Nice. -F/U wound cultures -Continue current antibiotics per ID recommendations -Continue vaseline gauze and 4x4 dressing -PRN pain medication Discussed with Dr. Wylie. Jf Plascencia, PGY1
[2017-04-03] MEDS: Insulin Detemir 100 units/ml Vial (Levemir) SC SCH ×2 (10:22→23:19)
[2017-04-03] MEDS: Insulin Lispro (humaLOG) MIX 75/25(10 ml) SC SCH ×2 (10:25→17:43)
--- NOTE | 2017-04-03 12:04 | CT ---
PROCEDURE: HISTORY: severe right thigh pain r/o collection COMPARISON: TECHNIQUE: FINDINGS: Likely post-traumatic cortical sclerosis and thickening along the distal medial femoral condyle. No mass or erosion. Question proximal hamstring tear; recommend MRI correlation. IMPRESSION: Likely post-traumatic cortical sclerosis and thickening along the distal medial femoral condyle. Question proximal hamstring tear; recommend MRI correlation.
--- NOTE | 2017-04-03 12:41 | CP.PCM.PN ---
Subjective - Date & Time of Evaluation Date of Evaluation: 04/03/17 Time of Evaluation: 11:20 - Subjective Subjective: Comfortable in bed, no fevers. Objective - Vital Signs/Intake and Output Vital Signs (last 24 hours): Temp Pulse Resp BP Pulse Ox 98 F 95 H 20 125/82 97 04/03/17 08:25 04/03/17 08:25 04/03/17 08:25 04/03/17 08:25 04/03/17 08:25 Intake and Output: 04/03/17 04/03/17 06:59 18:59 Intake Total 840 Output Total 600 Balance 240 - Medications Medications: Current Medications Acetaminophen (Tylenol 325mg Tab) 650 mg PO Q6H PRN PRN Reason: Fever >100.4 F Last Admin: 04/02/17 00:53 Dose: 650 mg Docusate Sodium (Colace) 100 mg PO DAILY [facility] Ceftaroline Fosamil 600 mg/ (Sodium Chloride) 250 mls @ 250 mls/hr IV Q12 [facility] PRN Reason: Protocol Stop: 04/12/17 10:01 Last Admin: 04/02/17 21:13 Dose: 250 mls/hr Insulin Detemir (Levemir) 20 unit SC Q12 [facility] Last Admin: 04/02/17 21:12 Dose: 20 unit Insulin Lispro Protam/Lispro Human (Humalog Mix 75/25) 40 units SC BID [facility] Last Admin: 04/02/17 17:24 Dose: 40 units Lactic Acid (Lac-Hydrin 12% Cream (140 G)) 0 ea TOP Q6 [facility] Lisinopril (Zestril) 5 mg PO DAILY [facility] Last Admin: 04/02/17 11:31 Dose: Not Given Morphine Sulfate (Morphine) 2 mg IVP Q4H PRN PRN Reason: Pain, severe (8-10) Last Admin: 04/03/17 05:48 Dose: 2 mg Oxycodone/Acetaminophen (Percocet 10/325 Mg Tab) 1 tab PO Q6H PRN PRN Reason: Pain, moderate (4-7) Last Admin: 04/02/17 17:23 Dose: 1 tab - Labs Labs: 04/03/17 05:45 04/03/17 05:45 PT 52.4 SECONDS (9.4-12.5) H 04/03/17 05:45 INR 4.42 (0.93-1.08) H* 04/03/17 05:45 APTT 117.3 Seconds (25.1-36.5) H* 04/01/17 19:25 - Constitutional Appears: Chronically Ill - Head Exam Head Exam: NORMAL INSPECTION - Respiratory Exam Respiratory Exam: Decreased Breath Sounds - Cardiovascular Exam Cardiovascular Exam: +S1, +S2 - GI/Abdominal Exam GI & Abdominal Exam: Soft. 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
[2017-04-03] MEDS: Oxycodone/Acetaminophen 10/325 mg Tab PO PRN ×2 (15:10→23:23)
[2017-04-03] MEDS ORDERED: Morphine 2 mg/ml ISec IVP PRN (17:33)
[2017-04-03] MEDS: Ammonium Lactate 12% Cream (140 g) TOP SCH (17:49)
[2017-04-03] MEDS ORDERED: HYDROmorphone 2 mg/ml ISec IVP PRN (19:24)
[2017-04-03] MEDS: Ceftaroline 600 MG in Sodium Chloride 0.9% 100 ML IV SCH (21:45)
--- NOTE | 2017-04-03 23:09 | CP.PCM.PN ---
Subjective - Date & Time of Evaluation Date of Evaluation: 04/03/17 Time of Evaluation: 18:00 - Subjective Subjective: Complaining of severe leg pain right. Asking to increase the dose of morphine. Stating that morphine does not do anything for pain, percocet did not help either. CT right leg possible hanstring tear. Doppler right leg negative for DVT. Objective - Vital Signs/Intake and Output Vital Signs (last 24 hours): Temp Pulse Resp BP Pulse Ox 98.5 F 82 19 119/78 97 04/03/17 16:00 04/03/17 16:00 04/03/17 16:00 04/03/17 16:00 04/03/17 16:00 Intake and Output: 04/03/17 04/04/17 18:59 06:59 Intake Total 600 Output Total 1800 900 Balance -1200 -900 - Medications Medications: Current Medications Acetaminophen (Tylenol 325mg Tab) 650 mg PO Q6H PRN PRN Reason: Fever >100.4 F Last Admin: 04/02/17 00:53 Dose: 650 mg Docusate Sodium (Colace) 100 mg PO DAILY [facility] Last Admin: 04/03/17 10:24 Dose: 100 mg Hydromorphone HCl (Dilaudid) 2 mg IVP Q4H PRN PRN Reason: Pain, severe (8-10) Last Admin: 04/03/17 19:46 Dose: 2 mg Ceftaroline Fosamil 600 mg/ (Sodium Chloride) 100 mls @ 250 mls/hr IV Q12 [facility] PRN Reason: Protocol Stop: 04/12/17 10:01 Last Admin: 04/03/17 21:45 Dose: 250 mls/hr Insulin Detemir (Levemir) 20 unit SC Q12 [facility] Last Admin: 04/03/17 10:22 Dose: 20 unit Insulin Lispro Protam/Lispro Human (Humalog Mix 75/25) 40 units SC BID [facility] Last Admin: 04/03/17 17:43 Dose: 40 units Lactic Acid (Lac-Hydrin 12% Cream (140 G)) 0 ea TOP Q6 [facility] Last Admin: 04/03/17 17:49 Dose: 1 applic Lisinopril (Zestril) 5 mg PO DAILY [facility] Last Admin: 04/03/17 10:24 Dose: 5 mg Oxycodone/Acetaminophen (Percocet 10/325 Mg Tab) 1 tab PO Q6H PRN PRN Reason: Pain, moderate (4-7) Last Admin: 04/03/17 15:10 Dose: 1 tab - Labs Labs: 04/03/17 05:45 04/03/17 05:45 PT 52.4 SECONDS (9.4-12.5) H 04/03/17 05:45 INR 4.42 (0.93-1.08) H* 04/03/17 05:45 APTT 117.3 Seconds (25.1-36.5) H* 04/01/17 19:25 - Constitutional Appears: In Acute Distress - Head Exam Head Exam: ATRAUMATIC, NORMAL INSPECTION, NORMOCEPHALIC - Eye Exam Eye Exam: Normal appearance - ENT Exam ENT Exam: Mucous Membranes Moist - Neck Exam Neck Exam: Normal Inspection - Respiratory Exam Respiratory Exam: Clear to Ausculation Bilateral - GI/Abdominal Exam GI & Abdominal Exam: Soft, Normal Bowel Sounds - Extremities Exam Extremities Exam: Normal Inspection - Back Exam Back Exam: NORMAL INSPECTION - Neurological Exam Neurological Exam: Alert, Awake, Oriented x3 - Skin Skin Exam: Normal Color, Warm Assessment and Plan - Assessment and Plan (Free Text) Assessment: 1. Hypercoaguable state . Factor V leidin. coumadin on hold for increased INR. 2. Chest wound infection : on antibiotics as per ID 3. Pain : right leg non tender. possible drug seeking behaviour. H/O of drug abuse in past. Dc morphine. Dilaudid 1 mg Q4 hr prn for pain. 4. ortho consult for questionable right hamstring tear. 5. Surgery consult appreciated. Note reviewed.
[2017-04-04] MEDS: Ammonium Lactate 12% Cream (140 g) TOP SCH ×2 (03:42→11:00)
[2017-04-04] MEDS: Oxycodone/Acetaminophen 10/325 mg Tab PO PRN ×3 (05:35→19:54)
[2017-04-04 10:31] LABS: BASO # 0.04 K/mm3 (0.0-2.0); BASO % 0.3 % (0.0-3.0); EOS # 0.2 (0.0-0.7); GRAN # 8.73 (1.4-6.5); HEMOGLOBIN 14.5 g/dL (14.0-18.0); LYMPH # 3.7 (1.2-3.4); MEAN CELL VOLUME 86.6 fl (80.0-105.0); MEAN CORPUSCULAR HEMOGLOBIN 28.9 pg (25.0-35.0); MEAN CORPUSCULAR HGB CONC 33.4 g/dl (31.0-37.0); MEAN PLATELET VOLUME 10.9 fl (7.0-11.0); MONO # 2.7 (0.1-0.6); MONO % 17.7 % (1.0-6.0); RBC 5.01 10^6/uL (3.5-6.1); RED CELL DISTRIBUTION WIDTH 14.5 % (11.5-14.5); WHITE BLOOD COUNT 15.3 10^3/ul (4.5-11.0)
[2017-04-04] MEDS: Lidocaine 5% Patch TD SCH (10:40)
[2017-04-04] MEDS: Insulin Lispro (humaLOG) MIX 75/25(10 ml) SC SCH ×2 (10:41→17:30)
[2017-04-04] MEDS: Insulin Detemir 100 units/ml Vial (Levemir) SC SCH ×2 (10:42→21:59)
[2017-04-04] MEDS: Ceftaroline 600 MG in Sodium Chloride 0.9% 100 ML IV SCH ×2 (10:49→21:59)
--- NOTE | 2017-04-04 10:52 | CP.PCM.PN ---
Subjective - Date & Time of Evaluation Date of Evaluation: 04/04/17 Time of Evaluation: 06:50 - Subjective Subjective: Patient seen and examined at bedside. No acute events overnight. patient denies and fevers or chils but reports persistent R leg pain. Patient also has persistent itching and erythema over the defibrillator site. Spoke to Dr. Beaulieu who was consulted to evaluate the defibrillator site, he recommended transferrign patient to [facility] so that original cardiovascular surgeon--Dr. Castañeda--can evaluate and treat him. No consult note in chart. Objective - Vital Signs/Intake and Output Vital Signs (last 24 hours): Temp Pulse Resp BP Pulse Ox 98.8 F 103 H 19 108/75 94 L 04/04/17 08:16 04/04/17 08:16 04/04/17 08:16 04/04/17 08:16 04/04/17 08:16 Intake and Output: 04/04/17 04/04/17 06:59 18:59 Intake Total 240 Output Total 900 Balance -900 240 - Medications Medications: Current Medications Acetaminophen (Tylenol 325mg Tab) 650 mg PO Q6H PRN PRN Reason: Fever >100.4 F Last Admin: 04/02/17 00:53 Dose: 650 mg Docusate Sodium (Colace) 100 mg PO DAILY [facility] Last Admin: 04/03/17 10:24 Dose: 100 mg Hydromorphone HCl (Dilaudid) 2 mg IVP Q4H PRN PRN Reason: Pain, severe (8-10) Last Admin: 04/04/17 03:57 Dose: 2 mg Ceftaroline Fosamil 600 mg/ (Sodium Chloride) 100 mls @ 250 mls/hr IV Q12 [facility] PRN Reason: Protocol Stop: 04/12/17 10:01 Last Admin: 04/03/17 21:45 Dose: 250 mls/hr Insulin Detemir (Levemir) 20 unit SC Q12 [facility] Last Admin: 04/03/17 23:19 Dose: 20 unit Insulin Lispro Protam/Lispro Human (Humalog Mix 75/25) 40 units SC BID [facility] Last Admin: 04/03/17 17:43 Dose: 40 units Lactic Acid (Lac-Hydrin 12% Cream (140 G)) 0 ea TOP Q6 [facility] Last Admin: 04/04/17 03:42 Dose: Not Given Lidocaine (Lidoderm) 1 ea TD DAILY [facility] Lisinopril (Zestril) 5 mg PO DAILY [facility] Last Admin: 04/03/17 10:24 Dose: 5 mg Oxycodone/Acetaminophen (Percocet 10/325 Mg Tab) 1 tab PO Q6H PRN PRN Reason: Pain, moderate (4-7) Last Admin: 04/04/17 05:35 Dose: 1 tab - Labs Labs: 04/04/17 09:38 04/03/17 05:45 PT 52.4 SECONDS (9.4-12.5) H 04/03/17 05:45 INR 4.42 (0.93-1.08) H* 04/03/17 05:45 APTT 117.3 Seconds (25.1-36.5) H* 04/01/17 19:25 - Constitutional Appears: Well, Non-toxic, No Acute Distress - Head Exam Head Exam: ATRAUMATIC, NORMOCEPHALIC - ENT Exam ENT Exam: Mucous Membranes Moist - Respiratory Exam Respiratory Exam: NORMAL BREATHING PATTERN. absent: Accessory Muscle Use, Respiratory Distress - Cardiovascular Exam Cardiovascular Exam: RRR - Extremities Exam Extremities Exam: absent: Calf Tenderness, Pedal Edema, Tenderness - Neurological Exam Neurological Exam: Alert, Awake, Oriented x3 - Psychiatric Exam Psychiatric exam: Normal Affect, Normal Mood - Skin Additional comments: Dressing over anterior skin wound over sternum c/d/i. Skin over the defibrillator in the left anterior axillary line of the chest erythematous and excoriated, without drainage or fluctuance Assessment and Plan - Assessment and Plan (Free Text) Assessment: 41M with chronic central chest wound from defibrillator insertion and possible infected defibrillator Plan: -No need for emergent surgical intervention in the anterior chest chronic skin wound, Continue vaseline gauze and 4x4 dressing per nursing -Pt. Needs evaluation by concrete vault maker for possible removal of defribillator. Dr. Beaulieu recommended referral back to Dr. Nice, original cardiovascular surgeon -F/U wound cultures: light gram-negative anuja growth -Continue current antibiotics per ID recommendations -PRN pain medication Discussed with Dr. Izaguirre. Carol Osborne, PGY2
--- NOTE | 2017-04-04 12:30 | CP.PCM.PN ---
Subjective - Date & Time of Evaluation Date of Evaluation: 04/04/17 Time of Evaluation: 10:50 - Subjective Subjective: Comfortable, no fevers, not much pain around the ICD site but still erythematous. Objective - Vital Signs/Intake and Output Vital Signs (last 24 hours): Temp Pulse Resp BP Pulse Ox 98.8 F 103 H 19 108/75 94 L 04/04/17 08:16 04/04/17 08:16 04/04/17 08:16 04/04/17 08:16 04/04/17 08:16 Intake and Output: 04/04/17 04/04/17 06:59 18:59 Intake Total 240 Output Total 900 Balance -900 240 - Medications Medications: Current Medications Acetaminophen (Tylenol 325mg Tab) 650 mg PO Q6H PRN PRN Reason: Fever >100.4 F Last Admin: 04/02/17 00:53 Dose: 650 mg Docusate Sodium (Colace) 100 mg PO DAILY [facility] Last Admin: 04/03/17 10:24 Dose: 100 mg Hydromorphone HCl (Dilaudid) 2 mg IVP Q4H PRN PRN Reason: Pain, severe (8-10) Last Admin: 04/04/17 03:57 Dose: 2 mg Ceftaroline Fosamil 600 mg/ (Sodium Chloride) 100 mls @ 250 mls/hr IV Q12 [facility] PRN Reason: Protocol Stop: 04/12/17 10:01 Last Admin: 04/03/17 21:45 Dose: 250 mls/hr Insulin Detemir (Levemir) 20 unit SC Q12 [facility] Last Admin: 04/03/17 23:19 Dose: 20 unit Insulin Lispro Protam/Lispro Human (Humalog Mix 75/25) 40 units SC BID [facility] Last Admin: 04/03/17 17:43 Dose: 40 units Lactic Acid (Lac-Hydrin 12% Cream (140 G)) 0 ea TOP Q6 [facility] Last Admin: 04/04/17 03:42 Dose: Not Given Lidocaine (Lidoderm) 1 ea TD DAILY [facility] Lisinopril (Zestril) 5 mg PO DAILY [facility] Last Admin: 04/03/17 10:24 Dose: 5 mg Oxycodone/Acetaminophen (Percocet 10/325 Mg Tab) 1 tab PO Q6H PRN PRN Reason: Pain, moderate (4-7) Last Admin: 04/04/17 05:35 Dose: 1 tab - Labs Labs: 04/03/17 05:45 04/03/17 05:45 PT 52.4 SECONDS (9.4-12.5) H 04/03/17 05:45 INR 4.42 (0.93-1.08) H* 04/03/17 05:45 APTT 117.3 Seconds (25.1-36.5) H* 04/01/17 19:25 - Constitutional Appears: Non-toxic, Chronically Ill - Head Exam Head Exam: NORMAL INSPECTION - ENT Exam ENT Exam: Mucous Membranes Moist - Neck Exam Neck Exam: absent: Meningismus - Respiratory Exam Respiratory Exam: Decreased Breath Sounds Additional comments: median chest area with dressings in place, left chest wall area where ICD is with erythema but no discharge noted - Cardiovascular Exam Cardiovascular Exam: +S1, +S2 - GI/Abdominal Exam GI & Abdominal Exam: Soft. 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
--- NOTE | 2017-04-04 22:29 | CP.PCM.PN ---
Subjective - Date & Time of Evaluation Date of Evaluation: 04/04/17 Time of Evaluation: 18:00 - Subjective Subjective: Comfortable in bed. No acute distress. Complaining of pain right leg. Stating nothing helping. No fever, no nausea, vomiting. he is on dilaudid IV prn for pain. Objective - Vital Signs/Intake and Output Vital Signs (last 24 hours): Temp Pulse Resp BP Pulse Ox 98 F 87 20 110/79 96 04/04/17 16:00 04/04/17 16:00 04/04/17 16:00 04/04/17 16:00 04/04/17 16:00 Intake and Output: 04/04/17 04/05/17 18:59 06:59 Intake Total 240 360 Output Total 400 Balance 240 -40 - Medications Medications: Current Medications Acetaminophen (Tylenol 325mg Tab) 650 mg PO Q6H PRN PRN Reason: Fever >100.4 F Last Admin: 04/02/17 00:53 Dose: 650 mg Docusate Sodium (Colace) 100 mg PO DAILY [facility] Last Admin: 04/04/17 10:42 Dose: 100 mg Hydromorphone HCl (Dilaudid) 2 mg IVP Q4H PRN PRN Reason: Pain, severe (8-10) Last Admin: 04/04/17 21:49 Dose: 2 mg Ceftaroline Fosamil 600 mg/ (Sodium Chloride) 100 mls @ 250 mls/hr IV Q12 [facility] PRN Reason: Protocol Stop: 04/12/17 10:01 Last Admin: 04/04/17 21:59 Dose: 250 mls/hr Insulin Detemir (Levemir) 20 unit SC Q12 [facility] Last Admin: 04/04/17 21:59 Dose: 20 unit Insulin Lispro Protam/Lispro Human (Humalog Mix 75/25) 40 units SC BID [facility] Last Admin: 04/04/17 17:30 Dose: 40 units Lactic Acid (Lac-Hydrin 12% Cream (140 G)) 0 ea TOP Q6 [facility] Last Admin: 04/04/17 11:00 Dose: 1 applic Lidocaine (Lidoderm) 1 ea TD DAILY [facility] Last Admin: 04/04/17 10:40 Dose: 1 ea Lisinopril (Zestril) 5 mg PO DAILY [facility] Last Admin: 04/04/17 10:40 Dose: 5 mg Oxycodone/Acetaminophen (Percocet 10/325 Mg Tab) 1 tab PO Q6H PRN PRN Reason: Pain, moderate (4-7) Last Admin: 04/04/17 19:54 Dose: 1 tab - Labs Labs: 04/04/17 09:38 04/03/17 05:45 PT 52.4 SECONDS (9.4-12.5) H 04/03/17 05:45 INR 4.42 (0.93-1.08) H* 04/03/17 05:45 APTT 117.3 Seconds (25.1-36.5) H* 04/01/17 19:25 - Constitutional Appears: Well, Non-toxic - Head Exam Head Exam: ATRAUMATIC, NORMAL INSPECTION, NORMOCEPHALIC - Eye Exam Eye Exam: Normal appearance Pupil Exam: NORMAL ACCOMODATION - ENT Exam ENT Exam: Mucous Membranes Moist, Normal Exam - Neck Exam Neck Exam: Normal Inspection - Respiratory Exam Respiratory Exam: Clear to Ausculation Bilateral - Cardiovascular Exam Cardiovascular Exam: REGULAR RHYTHM, +S1, +S2 - GI/Abdominal Exam GI & Abdominal Exam: Soft, Normal Bowel Sounds - Extremities Exam Extremities Exam: Normal Inspection - Back Exam Back Exam: NORMAL INSPECTION - Neurological Exam Neurological Exam: Alert, Awake, Oriented x3 - Skin Skin Exam: Pallor, Warm Assessment and Plan - Assessment and Plan (Free Text) Assessment: 1. Hypercogubale state : Factor V leidin. INR elevated. check with am labs. Hold coumadin . 2. Infected defibrillator : Discussed with Dr. Izaguirre. removal of defibrillator suggested. Dr. Nice at [facility] [place] patient for transfer but he refused to be transferred and communicated to surgical team- Dr. Osborne. I had a lengthy discussion with him. he refused to be transferred. He communicated that 'my leg should be fixed. I am not worried about defibrillator ". he stated that he had a bad episode at [facility] so does not want to be transferred. I explained to him that not removing device might be life threatening. he said he will think over it. I gave him the option of transfer to [facility]. he finally agreed to be transferred to [facility]. 3. Pain right leg : no swelling, erythema. Doppler negative for DVT. evaluated by Dr. Marvin . 4. ID ; on ernesto , culture wound growing gram neg rods. ID following. transfer to [facility] under Dr. Nice. Contacted Dr. Packer, his primary machine grinder, he will evaluate him tomorrow.
[2017-04-05] MEDS: Ammonium Lactate 12% Cream (140 g) TOP SCH ×3 (00:39→17:03)
[2017-04-05] MEDS: Oxycodone/Acetaminophen 10/325 mg Tab PO PRN ×4 (02:18→20:04)
[2017-04-05 06:52] LABS: HEMOGLOBIN 13.8 g/dL (14.0-18.0); MEAN CELL VOLUME 88.2 fl (80.0-105.0); MEAN CORPUSCULAR HEMOGLOBIN 28.5 pg (25.0-35.0); MEAN CORPUSCULAR HGB CONC 32.3 g/dl (31.0-37.0); MEAN PLATELET VOLUME 10.7 fl (7.0-11.0); RBC 4.84 10^6/uL (3.5-6.1); RED CELL DISTRIBUTION WIDTH 14.6 % (11.5-14.5); WHITE BLOOD COUNT 12.8 10^3/ul (4.5-11.0)
[2017-04-05 07:25] LABS: PARTIAL THROMBOPLASTIN TIME 37.8 Seconds (25.1-36.5)
[2017-04-05 07:56] LABS: BLOOD UREA NITROGEN 16 mg/dL (7-21); CALCIUM 10.2 mg/dL (8.4-10.5); GFR AFRICAN-AMERICAN > 60; GFR NON-AFRICAN AMERICAN > 60
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
--- NOTE | 2017-04-05 08:23 | PN ---
DATE: 04/04/2017 LOCATION: The patient is seen in [facility], bed 2. There is a white count up to 20,000; hemoglobin 13. The patient was anticoagulated with a PT of 52 and INR of 4. On physical exam, the patient has a defibrillator placed. He has redness upon the pocket, with may be some fluid . There is a wire going into the midsternum has a granuloma on it. It is cultured aerobically and anaerobically. I believe this is an infected port and I am going to ask for Cardiology to evaluate it. More than likely, the port has to be removed and possibly replaced. Consult is made to the Cardiology group. Dr. Nice, the operating surgeon, does not come here anymore. This was done at [facility]. If this cannot be done here, the patient possibly should be transferred to the [facility] where the transplant was done. Juarez Izaguirre MD
[2017-04-05] MEDS: HYDROmorphone 2 mg/ml ISec IVP PRN ×4 (09:14→21:31)
[2017-04-05] MEDS: Insulin Detemir 100 units/ml Vial (Levemir) SC SCH ×2 (09:16→21:36)
[2017-04-05] MEDS: Insulin Lispro (humaLOG) MIX 75/25(10 ml) SC SCH ×2 (09:16→17:03)
[2017-04-05] MEDS: Lidocaine 5% Patch TD SCH (09:18)
[2017-04-05] MEDS: Linezolid 600 mg in D5W 300 ml 600 MG/300 ML BAG IVPB SCH ×2 (09:34→21:37)
[2017-04-05] MEDS: Cefepime IV 2 gm in NS 2 GM/100 ML BAG IVPB SCH ×3 (11:42→21:38)
--- NOTE | 2017-04-05 11:48 | CP.PCM.PN ---
Subjective - Date & Time of Evaluation Date of Evaluation: 04/05/17 Time of Evaluation: 11:44 - Subjective Subjective: GENERAL SURGERY CONSULT NOTE FOR DR. WYLIE. Patient has been seen and examined at bedside. No overnight events reported. Patient has no complaints about chest wall wound/infection. He denies any fevers. Patient continues to complain of right lower extremity pain and states that nothing is helping the pain. Patient very adamant about receiving intervention for is leg pain before transfer to [facility]. Importance of treating his infected defibrillator was explained to patient including the risk of permanent disability and . Patient is still agreeable with the transfer but wants intervention for his leg. Objective - Vital Signs/Intake and Output Vital Signs (last 24 hours): Temp Pulse Resp BP Pulse Ox 97.9 F 85 18 123/79 94 L 04/05/17 08:49 04/05/17 09:17 04/05/17 08:49 04/05/17 09:17 04/05/17 08:49 Intake and Output: 04/05/17 04/05/17 06:59 18:59 Intake Total 600 Output Total 650 Balance -50 - Medications Medications: Current Medications Acetaminophen (Tylenol 325mg Tab) 650 mg PO Q6H PRN PRN Reason: Fever >100.4 F Last Admin: 04/02/17 00:53 Dose: 650 mg Docusate Sodium (Colace) 100 mg PO DAILY [facility] Last Admin: 04/05/17 09:17 Dose: 100 mg Hydromorphone HCl (Dilaudid) 2 mg IVP Q4H PRN PRN Reason: Pain, severe (8-10) Last Admin: 04/05/17 09:14 Dose: 2 mg Cefepime HCl (Maxipime 2gm) 2 gm in 100 mls @ 100 mls/hr IVPB Q8 [facility] PRN Reason: Protocol Stop: 04/10/17 09:16 Linezolid (Zyvox 600mg/300ml D5w) 600 mg in 300 mls @ 200 mls/hr IVPB Q12 [facility] PRN Reason: Protocol Stop: 04/12/17 10:01 Last Admin: 04/05/17 09:34 Dose: 200 mls/hr Insulin Detemir (Levemir) 20 unit SC Q12 [facility] Last Admin: 04/05/17 09:16 Dose: 20 unit Insulin Lispro Protam/Lispro Human (Humalog Mix 75/25) 40 units SC BID [facility] Last Admin: 04/05/17 09:16 Dose: 40 units Lactic Acid (Lac-Hydrin 12% Cream (140 G)) 0 ea TOP Q6 [facility] Last Admin: 04/05/17 00:39 Dose: 1 applic Lidocaine (Lidoderm) 1 ea TD DAILY [facility] Last Admin: 04/05/17 09:18 Dose: 1 ea Lisinopril (Zestril) 5 mg PO DAILY [facility] Last Admin: 04/05/17 09:17 Dose: 5 mg Oxycodone/Acetaminophen (Percocet 10/325 Mg Tab) 1 tab PO Q6H PRN PRN Reason: Pain, moderate (4-7) Last Admin: 04/05/17 07:38 Dose: 1 tab - Labs Labs: 04/05/17 06:35 04/05/17 06:35 PT 52.4 SECONDS (9.4-12.5) H 04/03/17 05:45 INR 4.42 (0.93-1.08) H* 04/03/17 05:45 APTT 37.8 Seconds (25.1-36.5) H 04/05/17 06:35 - Additional Findings Additional findings: - Constitutional Appears: Well, Non-toxic, No Acute Distress - Head Exam Head Exam: ATRAUMATIC, NORMOCEPHALIC - ENT Exam ENT Exam: Mucous Membranes Moist - Respiratory Exam Respiratory Exam: NORMAL BREATHING PATTERN. absent: Accessory Muscle Use, Respiratory Distress - Cardiovascular Exam Cardiovascular Exam: RRR - Extremities Exam Extremities Exam: absent: Calf Tenderness, Pedal Edema, Joint edema. - Neurological Exam Neurological Exam: Alert, Awake, Oriented x3 - Psychiatric Exam Psychiatric exam: Normal Affect, Normal Mood - Skin Additional comments: Dressing over anterior skin wound over sternum c/d/i. Skin over the defibrillator in the left anterior axillary line of the chest erythematous and excoriated, without drainage or fluctuance Assessment and Plan - Assessment and Plan (Free Text) Assessment: 41M with chronic central chest wound from defibrillator insertion and possible infected defibrillator Ant. midline chest Wound Culture - Pseudomonas Aeruginosa Skin overlying defibrillator has worsening erythema concerning for continuing infection. Leukocytosis - Improving Plan: -No indication for emergent general surgical intervention in the anterior chest chronic skin wound, Continue vaseline gauze and 4x4 dressing per nursing -Pt. Needs evaluation by staffing operations manager for possible removal of defribillator. Dr. Beaulieu recommended referral back to Dr. Nice, original cardiovascular surgeon -Transfer to [facility] tomorrow morning under the service of Dr. Nice; who has accepted this patient for removal of defibrillator per primary. -Continue current antibiotics per ID recommendations while at [facility] -PRN pain medication Discussed with Dr. Wylie. Jf Plascencia, PGY1
--- NOTE | 2017-04-05 12:17 | CP.PCM.PN ---
Subjective - Date & Time of Evaluation Date of Evaluation: 04/05/17 Time of Evaluation: 10:45 - Subjective Subjective: Left side of the chest feels better, no fevers. Objective - Vital Signs/Intake and Output Vital Signs (last 24 hours): Temp Pulse Resp BP Pulse Ox 97.9 F 85 18 123/79 94 L 04/05/17 08:49 04/05/17 08:49 04/05/17 08:49 04/05/17 08:49 04/05/17 08:49 Intake and Output: 04/05/17 04/05/17 06:59 18:59 Intake Total 600 Output Total 650 Balance -50 - Medications Medications: Current Medications Acetaminophen (Tylenol 325mg Tab) 650 mg PO Q6H PRN PRN Reason: Fever >100.4 F Last Admin: 04/02/17 00:53 Dose: 650 mg Docusate Sodium (Colace) 100 mg PO DAILY [facility] Last Admin: 04/04/17 10:42 Dose: 100 mg Hydromorphone HCl (Dilaudid) 2 mg IVP Q4H PRN PRN Reason: Pain, severe (8-10) Cefepime HCl (Maxipime 2gm) 2 gm in 100 mls @ 100 mls/hr IVPB Q8 [facility] PRN Reason: Protocol Stop: 04/10/17 09:16 Linezolid (Zyvox 600mg/300ml D5w) 600 mg in 300 mls @ 200 mls/hr IVPB Q12 [facility] PRN Reason: Protocol Stop: 04/12/17 10:01 Insulin Detemir (Levemir) 20 unit SC Q12 [facility] Last Admin: 04/04/17 21:59 Dose: 20 unit Insulin Lispro Protam/Lispro Human (Humalog Mix 75/25) 40 units SC BID [facility] Last Admin: 04/04/17 17:30 Dose: 40 units Lactic Acid (Lac-Hydrin 12% Cream (140 G)) 0 ea TOP Q6 [facility] Last Admin: 04/05/17 00:39 Dose: 1 applic Lidocaine (Lidoderm) 1 ea TD DAILY [facility] Last Admin: 04/04/17 10:40 Dose: 1 ea Lisinopril (Zestril) 5 mg PO DAILY [facility] Last Admin: 04/04/17 10:40 Dose: 5 mg Oxycodone/Acetaminophen (Percocet 10/325 Mg Tab) 1 tab PO Q6H PRN PRN Reason: Pain, moderate (4-7) Last Admin: 04/05/17 07:38 Dose: 1 tab - Labs Labs: 04/05/17 06:35 04/05/17 06:35 PT 52.4 SECONDS (9.4-12.5) H 04/03/17 05:45 INR 4.42 (0.93-1.08) H* 04/03/17 05:45 APTT 37.8 Seconds (25.1-36.5) H 04/05/17 06:35 - Constitutional Appears: Chronically Ill - Head Exam Head Exam: NORMAL INSPECTION - ENT Exam ENT Exam: Mucous Membranes Moist - Neck Exam Neck Exam: absent: Meningismus - Respiratory Exam Respiratory Exam: Decreased Breath Sounds Additional comments: left side of the chest with ICD site with decreasing erythema, no tenderness currently - Cardiovascular Exam Cardiovascular Exam: +S1, +S2 - GI/Abdominal Exam GI & Abdominal Exam: Soft. 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
[2017-04-05 13:36] LABS: INR 1.79 (0.93-1.08); PROTHROMBIN TIME 20.8 SECONDS (9.4-12.5)
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
[2017-04-05] MEDS ORDERED: Enoxaparin 80 mg Syringe SC SCH (16:00)
[2017-04-05 16:49] VITALS: BP 113/78; PULSE 84; RESP 20; TEMP 97.8; O2SAT 97
[2017-04-05] MEDS ORDERED: HYDROmorphone 0.5 mg/0.5 ml ISec IVP STA (23:29)
--- NOTE | 2017-04-05 23:49 | PN ---
DATE: 04/05/2017 SUBJECTIVE: He is comfortable in bed, in no acute distress. He has been observed by a staff nurse that he has been very comfortable when he is not being observed. He is on Dilaudid every 4 hours p.r.n. for right leg pain, which he has been complaining since admission. Doppler of right lower extremity has been negative. CAT scan of the right thigh did not show any pathology indicating the right thigh pain. Evaluated by Orthopedics, Dr. Sheehan, who advised knee support to the knee joint and Lidoderm patch. He was not happy with the Lidoderm patch. He is fixated on the right leg pain, asking to repeat the Doppler because he thinks he has DVT. Again, he is able to ambulate without difficulty if he is not being watched. He is currently on IV antibiotics. REVIEW OF SYSTEMS: As per HPI. Rest of the 12-point review of systems reviewed, negative. PHYSICAL EXAMINATION GENERAL: Comfortable in bed, in no acute distress. VITAL SIGNS: Temperature is 97.8, heart rate 84 per minute, blood pressure 120/79, respiratory rate 18 per minute, oxygen saturation 97% on room air. HEENT: Pallor positive. NECK: No lymphadenopathy. CHEST: Air entry present and equal bilaterally. No added sounds. CARDIOVASCULAR: S1, S2 normal. No murmur, no gallop. ABDOMEN: Soft, nontender, no hepatosplenomegaly. EXTREMITIES: No edema. The right leg is nontender. LABORATORY DATA: INR 1.7. White count 7.8, hemoglobin 13.8, platelets 568. Glucose well controlled on current medication. MEDICATIONS: Tylenol 650 q. 6 hours p.r.n., cefepime 2 g 2. 8h hours, Colace 100 mg daily, Lovenox 70 mg subcu q. 24 hours, Dilaudid 2 mg IV q. 4 hours p.r.n, Levemir, Zyvox 600 mg q. 12 hours, Lisinopril 5 mg daily, Percocet 1 tablet q. 6 hours p.r.n. ASSESSMENT: 1. Infected defibrillator. 2. Hypercoagulable state, factor V Leiden. 3. Right leg pain. 4. Drug-seeking behavior. PLAN: He is currently on full anticoagulation with Lovenox, on IV antibiotics as per ID, no evidence of DVT in right leg. He is exhibiting drug-seeing behavior. Plan is to transfer to [facility] with Dr. Henson, who accepted the transfer. Dr. Henson is the surgeon who put the pacemaker in. The plan is to transfer to [facility] for pacemaker removal and further management. We are awaiting bed from [facility]. Spoke to Dr. Henson. Coordinated the transfer. Discussed with the staff nurse, discussed with the patient. He agreed to go to [facility]. Surgical team is aware of the transfer to [facility]. Discussed with Dr. Osborne, Dr. Izaguirre's team. Valerie Woods MD
== END 2017-04-05 23:50 | disposition short-term general hospital (02) | DRG 315 ==
LOC: ED 18:07 → ERH 20:40 → 3RNO 23:00
PROVIDERS: ADMIT Internal Medicine Medical Oncology; ATTEND Internal Medicine Medical Oncology
DX: T82.7XXA Infection and inflammatory reaction due to other cardiac and vascular devices, implants and grafts, initial encounter (principal); D68.51 Activated protein C resistance; D68.59 Other primary thrombophilia; I42.0 Dilated cardiomyopathy; I50.20 Unspecified systolic (congestive) heart failure; L03.313 Cellulitis of chest wall; K21.9 Gastro-esophageal reflux disease without esophagitis; E10.9 Type 1 diabetes mellitus without complications; I25.10 Atherosclerotic heart disease of native coronary artery without angina pectoris; M24.561 Contracture, right knee; I25.5 Ischemic cardiomyopathy; Z91.19 Patient's noncompliance with other medical treatment and regimen; Y83.1 Surgical operation with implant of artificial internal device as the cause of abnormal reaction of the patient, or of later complication, without mention of misadventure at the time of the procedure; Z76.5 Malingerer [conscious simulation]; Z79.01 Long term (current) use of anticoagulants; Z95.1 Presence of aortocoronary bypass graft; Z90.81 Acquired absence of spleen; Y92.009 Unspecified place in unspecified non-institutional (private) residence as the place of occurrence of the external cause

== ENCOUNTER 2017-10-24 13:06 | Inpatient (IN) | payer BC ==
[2017-10-24 13:06] VITALS: BMI 27.3
[2017-10-24] MEDS ORDERED: Albuterol-Ipratrop 3 mg / 0.5 (3 ml) UD IH STA (13:53)
[2017-10-24 14:25] LABS: BASO # 0.04 K/mm3 (0.0-2.0); BASO % 0.1 % (0.0-3.0); GRAN # 24.14 (1.4-6.5); HEMOGLOBIN 12.5 g/dL (14.0-18.0); LYMPH # 2.3 (1.2-3.4); LYMPH % 7.7 % (22.0-35.0); MEAN CELL VOLUME 84.2 fl (80.0-105.0); MEAN CORPUSCULAR HEMOGLOBIN 28.6 pg (25.0-35.0); MEAN PLATELET VOLUME 11.3 fl (7.0-11.0); MONO # 2.7 (0.1-0.6); MONO % 9.2 % (1.0-6.0); RBC 4.37 10^6/uL (3.5-6.1)
[2017-10-24 14:30] LABS: WHITE BLOOD COUNT 29.1 10^3/ul (4.5-11.0)
--- NOTE | 2017-10-24 14:34 | RAD ---
Date of service: 10/24/2017 HISTORY: sob COMPARISON: Frontal chest radiograph 01/24/2017. FINDINGS: LUNGS: No active pulmonary disease. PLEURA: No significant pleural effusion identified, no pneumothorax apparent. CARDIOVASCULAR: Interval AICD/ pacemaker now inserted by an apparent left subclavian approach with the generator the left pectoralis region and solitary lead extending into the heart region. Sternotomy wires reiterated. Prior cardiac device now removed. Defibrillator OSSEOUS STRUCTURES: No significant abnormalities. VISUALIZED UPPER ABDOMEN: Surgical clips left upper quadrant abdomen once again noted. OTHER FINDINGS: None. IMPRESSION: No interval acute cardiopulmonary disease. AICD/ pacemaker replaced as discussed above with sternotomy again evident.
[2017-10-24 14:40] LABS: INR 1.04; PARTIAL THROMBOPLASTIN TIME 25.2 Seconds (25.1-36.5); PROTHROMBIN TIME 11.9 SECONDS (9.4-12.5)
--- NOTE | 2017-10-24 14:41 | ED PDOC ---
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 Patient reports also experiencing chest tightness, non-radiating left shoulder pain, intermittent chills/fever, and non-productive cough. Patient denies any bilateral leg swelling, syncopal episode, recent sick contacts or any recent medication intake. PMD: Dr. 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 - Musculoskeletal/Rheumatological Hx Musculoskeletal Disorders: Yes Hx Falls: No Hx Fractures: Yes (FEMORAL FX ORIF REMOVAL OF HARDWARE) Hx Unsteady Gait: Yes Other/Comment: right orif and hardware removal - Gastrointestinal Hx Gastrointestinal Disorders: Yes Hx Gastroesophageal Reflux: Yes - Genitourinary/Gynecological Hx Genitourinary Disorders: Yes Other/Comment: ERECTILE DYSFUNCTION/penile implant - Psychiatric Hx Psychophysiologic Disorder: No Hx Substance Use: Yes (quit 2 yrs ago) - Surgical History Other/Comment: Femur fracture right 2003,DVT IVC FILTER,OPEN HEART SURGERY-CLOT REMOVAL FOR L VENTRICLE 2004, arthoscopic debridement, synovectomy sx for right septic knee joint and left arm picc line insertion, 09/15/2015, splenectomy 2004 , tonsillectomy 13 days ago at [facility], difibrillator implaint 2017 - Anesthesia Hx Anesthesia: Yes Hx Anesthesia Reactions: No Hx Malignant Hyperthermia: No - Suicidal Assessment Feels Threatened In Home Enviroment: No Family/Social History - Physician Review Nursing Documentation Reviewed: Yes Family/Social History: No Known Family HX Smoking Status: Never Smoked Hx Alcohol Use: No (rare) Hx Substance Use: Yes (quit 2 yrs ago) Substance used: Amphetamines Hx Substance Use Treatment: No Allergies/Home Meds Allergies/Adverse Reactions: Allergies No Known Allergies Allergy (Verified 04/01/17 18:49) Home Medications: Home Meds Medication Instructions Recorded Confirmed Lisinopril [Zestril] 5 mg PO DAILY 08/19/16 04/01/17 Warfarin [Coumadin] 5 mg PO DAILY 01/24/17 04/01/17 Insulin Lispro Mix 75/25 [HumaLOG 40 units SC BID 03/18/17 04/01/17 Mix 75/25] Insulin Glargine, Recombina 40 unit SUBCUT HS 04/01/17 04/01/17 [Lantus] Review of Systems - Physician Review All systems were reviewed & negative as marked: Yes - Review of Systems Constitutional: Fevers Respiratory: SOB, Cough (non-productive) Cardiovascular: Chest Pain (chest tightness). absent: Syncope Musculoskeletal: Other (left shoulder pain; no bilateral leg swelling) Physical Exam Vital Signs Reviewed: Yes Vital Signs Temp Pulse Resp BP Pulse Ox 10/24/17 18:20 83 19 98 10/24/17 16:00 97.9 F 79 19 97 10/24/17 13:22 18 97 10/24/17 13:21 98.4 F 78 18 110/66 98 Temperature: Afebrile Blood Pressure: Normal Pulse: Regular Respiratory Rate: Normal Appearance: Positive for: Well-Appearing, Non-Toxic, Comfortable Pain Distress: None Mental Status: Positive for: Alert and Oriented X 3 - Systems Exam Head: Present: Atraumatic, Normocephalic Pupils: Present: PERRL Extroacular Muscles: Present: EOMI Conjunctiva: Present: Normal Mouth: Present: Moist Mucous Membranes Respiratory/Chest: Present: Clear to Auscultation (equal bilaterally), Good Air Exchange, Tender to Palpation (left anterior chest wall). No: Respiratory Distress, Accessory Muscle Use, Wheezes, Rales, Rhonchi Cardiovascular: Present: Regular Rate and Rhythm, Normal S1, S2. No: Murmurs Abdomen: No: Tenderness, Distention, Peritoneal Signs Upper Extremity: Present: Normal Inspection. No: Cyanosis, Edema Lower Extremity: Present: Normal Inspection, NORMAL PULSES (distal pulses equal and strong). No: Edema (no pedial edema) Neurological: Present: GCS=15, CN II-XII Intact, Speech Normal Skin: Present: Warm, Dry, Normal Color. No: Rashes Psychiatric: Present: Alert, Oriented x 3, Normal Insight, Normal Concentration Medical Decision Making ED Course and Treatment: 10/24/17 15:15 Impression: 41 year old male with shortness of breath and chest tightness. Plan: -- EKG -- Chest X-ray -- Angio Chest CT -- Duoneb -- Morphine -- Zosyn -- Reassess and disposition Progress Notes: 10/24/2017 14:33 Chest X-ray FINDINGS: LUNGS: No active pulmonary disease. PLEURA: No significant pleural effusion identified, no pneumothorax apparent. CARDIOVASCULAR: Interval AICD/pacemaker now inserted by an apparent left subclavian approach with the generator the left pectoralis region and solitary lead extendng into the heart region. Sternotomy wires reiterated. Prior cardiac device now removed. Defibrillator. OSSEOUS STRUCTURES: No significant abnormalities. VISUALIZED UPPER ABDOMEN: Surgical clips left upper quadrant abdomen once again noted. OTHER FINDINGS: None. IMPRESSION: No interval acute cardiopulmonary disease. AICD/pacemaker replaced as discussed above with sternotomy again evident. Dictator: Lew Gibbs MD 10/24/17 15:18 Labs have been reviewed, WBC at 29.1, D dimer elevated with subtherapeutic INR. Concern for PE with CTPE ordered. Discussed with Dr. Peralta, who requests to admit under hospitalist services. Page for Dr. Rosales made. 10/24/17 15:[address] Preeti Rosales hospitalist, who accepts patient to her service. - Lab Interpretations Lab Results: 10/24/17 14:21 10/24/17 14:21 Lab Results 10/24/17 14:21: NT-Pro-B Natriuret Pep 2160 H 10/24/17 14:21: Procalcitonin 1.91 H 10/24/17 14:21: Sodium 130 L, Potassium 4.6, Chloride 93 L, Carbon Dioxide 19 L , Anion Gap 23 H, BUN 21, Creatinine 0.8, Est GFR ( Amer) > 60, Est GFR ( Non-Af Amer) > 60, Random Glucose 464 H* D, Calcium 9.9, Magnesium 2.1, Total Bilirubin 1.1, AST 12 L D, ALT 19, Alkaline Phosphatase 137 H D, Troponin I 0.13 H* D, Total Protein 6.2, Albumin 4.0, Globulin 2.2, Albumin/Globulin Ratio 1.8 10/24/17 14:21: PT 11.9, INR 1.04, APTT 25.2, D-Dimer, Quantitative 380 H 10/24/17 14:21: WBC 29.1 H* D, RBC 4.37, Hgb 12.5 L, Hct 36.8 L, MCV 84.2 D, MCH 28.6, MCHC 34.0, RDW 14.0, Plt Count 289, MPV 11.3 H, Gran % 83.0 H, Lymph % (Auto) 7.7 L, Blair % (Auto) 9.2 H, Eos % (Auto) 0.0 L, Baso % (Auto) 0.1, Gran # 24.14 H, Lymph # (Auto) 2.3, Blair # (Auto) 2.7 H, Eos # (Auto) 0.0, Baso # (Auto) 0.04 - RAD Interpretation Radiology Orders: 10/24/17 13:53 CHEST PORTABLE [RAD] Stat 10/24/17 15:23 ANGIO CHEST PE PROTOCOL [CT] Stat - Medication Orders Current Medication Orders: Albuterol Sulfate (Albuterol 0.083% Inhal Isha (2.5 Mg/3 Ml) Ud) 2.5 mg INH [id number] PRN PRN Reason: Shortness of Breath Aspirin (Aspirin Chewable) 81 mg PO DAILY LA Atorvastatin Calcium (Lipitor) 20 mg PO DIN LA Carvedilol (Coreg) 3.125 mg PO 0800,1800 LA Cefepime HCl (Maxipime 1gm) 1 gm in 100 mls @ 100 mls/hr IVPB Q8 LA PRN Reason: Protocol Last Admin: 10/24/17 18:04 Dose: 100 mls/hr eMAR Start Stop Document 10/24/17 18:04 [email or web address] (Rec: 10/24/17 18:04 [email or web address] [id number]) Intravenous Solution Start Date 10/24/17 Start Time 18:04 Vancomycin HCl (Vancomycin 1gm) 1 gm in 250 mls @ 167 mls/hr IVPB Q12 LA PRN Reason: Protocol Sodium Chloride (Sodium Chloride 0.9%) 1,000 mls @ 150 mls/hr IV .Q6H40M LA Stop: 10/24/17 22:54 Last Admin: 10/24/17 19:21 Dose: 150 mls/hr eMAR Start Stop Document 10/24/17 19:21 [email or web address] (Rec: 10/24/17 19:21 [email or web address] [id number]) Intravenous Solution Start Date 10/24/17 Start Time 19:21 Insulin Human Regular 100 (units/ Sodium Chloride) 100 mls @ 4 mls/hr IV .Q24H PRN; Protocol; 4 UNITS/HR PRN Reason: TITRATE PER MD ORDER Heparin Sodium/Sodium Chloride (Heparin 00977 Units/250ml 1/2 Normal Saline) 25 ,000 units in 250 mls @ 14.288 mls/hr IV .[id number] LA; 18 UNITS/KG/HR PRN Reason: Protocol Last Admin: 10/24/17 19:22 Dose: 18 units/kg/hr, 14.288 mls/hr eMAR Start Stop Document 10/24/17 19:22 [email or web address] (Rec: 10/24/17 19:24 [email or web address] [id number]) Intravenous Solution Start Date 10/24/17 Start Time 19:24 MAR aPTT Document 10/24/17 19:22 [email or web address] (Rec: 10/24/17 19:24 [email or web address] [id number]) aPTT aPTT (secs) 25.2 Titration Intervention Document 10/24/17 19:22 [email or web address] (Rec: 10/24/17 19:24 [email or web address] [id number]) Titration Intake Waste Amount 0 Container Volume 250 Titration Dosing Titration Dose 18 IV Rate 14.288 Intake/Decrease Started Insulin Human Lispro (Humalog Med) 0 units SC ACHS LA PRN Reason: Protocol Pantoprazole Sodium (Protonix Ec Tab) 40 mg PO 0600 LA Discontinued Medications Albuterol/Ipratropium (Duoneb 3 Mg/0.5 Mg (3 Ml) Ud) 3 ml IH STAT STA Stop: 10/24/17 13:54 Last Admin: 10/24/17 16:02 Dose: 3 ml Aspirin (Aspirin) 325 mg PO STAT STA Stop: 10/24/17 16:08 Last Admin: 10/24/17 17:42 Dose: 325 mg Carvedilol (Coreg) 3.125 mg PO 0800,1800 LA Heparin Sodium (Porcine) (Heparin) 5,600 units IV ONCE ONE Stop: 10/24/17 17:50 Last Admin: 10/24/17 19:21 Dose: 5,600 units eMAR Start Stop Document 10/24/17 19:21 [email or web address] (Rec: 10/24/17 19:21 [email or web address] [id number]) Intravenous Solution Start Date 10/24/17 Start Time 19:21 Piperacillin Sod/Tazobactam Sod (Zosyn 4.5 Gm In Ns 100ml) 4.5 gm in 100 mls @ 200 mls/hr IVPB STAT STA PRN Reason: Protocol Stop: 10/24/17 15:22 Last Admin: 10/24/17 16:02 Dose: 200 mls/hr eMAR Start Stop Document 10/24/17 16:02 [email or web address] (Rec: 10/24/17 16:02 [email or web address] [id number]) Intravenous Solution Start Date 10/24/17 Start Time 16:02 Sodium Chloride (Sodium Chloride 0.9%) 1,000 mls @ 50 mls/hr IV .Q20H LA Stop: 10/25/17 12:14 Last Admin: 10/24/17 17:43 Dose: 50 mls/hr eMAR Start Stop Document 10/24/17 17:43 [email or web address] (Rec: 10/24/17 17:43 [email or web address] [id number]) Intravenous Solution Start Date 10/24/17 Start Time 17:43 Vancomycin HCl (Vancomycin 1gm) 1 gm in 250 mls @ 167 mls/hr IVPB STAT STA PRN Reason: Protocol Stop: 10/24/17 18:26 Last Admin: 10/24/17 19:26 Dose: 167 mls/hr eMAR Start Stop Document 10/24/17 19:26 [email or web address] (Rec: 10/24/17 19:26 [email or web address] [id number]) Intravenous Solution Start Date 10/24/17 Start Time 19:26 Insulin Human Regular (Humulin R) 10 units SC ONCE ONE Stop: 10/24/17 16:59 Last Admin: 10/24/17 17:41 Dose: 10 unit MAR Blood Glucose Document 10/24/17 17:41 [email or web address] (Rec: 10/24/17 17:42 [email or web address] [id number]) Blood Glucose Finger Stick Blood Glucose (70-120) 481 Subcutaneous Administrations Document 10/24/17 17:41 [email or web address] (Rec: 10/24/17 17:42 [email or web address] [id number]) Charges for Administration # of Subcutaneous Administrations 1 Morphine Sulfate (Morphine) 2 mg IVP STAT STA Stop: 10/24/17 15:06 Last Admin: 10/24/17 16:02 Dose: 2 mg MAR Pain Assessment Document 10/24/17 16:02 [email or web address] (Rec: 10/24/17 16:02 [email or web address] [id number]) Pain Reassessment Is this a pain reassessment? No Sleep Is patient sleeping during reassessment? No Presence of Pain Presence of Pain Yes Pain Scale Used Pain Scale Used Numeric Location Pain Location Body Site Generalized Description Description Constant Intensity of Pain at present 6 Pain Behavior Facial Grimacing Aggravating Factors Changing Position Alleviating Factors/Management Medication Techniques Alleviating Factors Medication IVP Administration Document 10/24/17 16:02 [email or web address] (Rec: 10/24/17 16:02 [email or web address] [id number]) Charges for Administration # of IVP Administrations 1 Morphine Sulfate (Morphine) 2 mg IVP STAT STA Stop: 10/24/17 18:09 Last Admin: 10/24/17 20:15 Dose: 2 mg MAR Pain Assessment Document 10/24/17 20:15 SS (Rec: 10/24/17 20:15 SS [id number]) Pain Reassessment Is this a pain reassessment? No Sleep Is patient sleeping during reassessment? No Presence of Pain Presence of Pain Yes IVP Administration Document 10/24/17 20:15 SS (Rec: 10/24/17 20:15 SS [id number]) Charges for Administration # of IVP Administrations 1 - Scribe Statement The provider has reviewed the documentation as recorded by the Ceferino Cunningham Provider Scribe Provider Scribe Attestation: All medical record entries made by the Ceferino were at my direction and personally dictated by me. I have reviewed the chart and agree that the record accurately reflects my personal performance of the history, physical exam, medical decision making, and the department course for this patient. I have also personally directed, reviewed, and agree with the discharge instructions and disposition. Disposition/Present on Arrival - Present on Arrival Any Indicators Present on Arrival: Yes History of DVT/PE: Yes History of Uncontrolled Diabetes: No Urinary Catheter: No History of Decub. Ulcer: No History Surgical Site Infection Following: None - Disposition Have Diagnosis and Disposition been Completed?: Yes Diagnosis: Shortness of breath, Leukocytosis Disposition: HOSPITALIZED Disposition Time: 15:25 Patient Plan: ICU Condition: [facility]IR
[2017-10-24 14:53] LABS: ALB/GLOB RATIO 1.8 (1.1-1.8); ALT/SGPT 19 U/L (7-56); AST/SGOT 12 U/L (17-59); BLOOD UREA NITROGEN 21 mg/dL (7-21); CALCIUM 9.9 mg/dL (8.4-10.5); GFR NON-AFRICAN AMERICAN > 60; TROPONIN I 0.13 ng/mL
[2017-10-24] MEDS ORDERED: Piperacill/Tazo 4.5gm in NS 4.5 GM/100 ML BAG IVPB STA (14:53)
[2017-10-24] MEDS ORDERED: Morphine 2 mg/ml ISec IVP STA ×2 (15:05→18:08)
[2017-10-24] MEDS ORDERED: Heparin25000 units/250ml 1/2NS 25,000 UNITS/250 ML BAG IV SCH (16:15)
[2017-10-24] MEDS ORDERED: Sodium Chloride 0.9% 1,000 ML IV SCH ×2 (16:15→17:46)
[2017-10-24] MEDS ORDERED: Vancomycin 2 GM in Sodium Chloride 0.9% 500 ML IVPB ONE (16:18)
[2017-10-24] MEDS ORDERED: Iodixanol 320 MG/ML 100 ML BOTTLE IV ONE (16:28)
[2017-10-24] MEDS ORDERED: Vancomycin 1gm in NS 250ml 1 GM/250 ML BAG IVPB STA (16:57)
[2017-10-24] MEDS ORDERED: Insulin Regular 1 UNITS/0.01 ML ML SC ONE (16:58)
[2017-10-24 17:45] LABS: ARTERIAL BLOOD GAS HCO3 16.8 mmol/L (21-28); ARTERIAL BLOOD GAS O2 SAT 98.1 % (95-98); ARTERIAL BLOOD GAS PCO2 29 mm/Hg (35-45); ARTERIAL BLOOD GAS PH 7.37 (7.35-7.45); ARTERIAL BLOOD GAS TCO2 17.7 mmol.L (22-28)
[2017-10-24] MEDS ORDERED: Albuterol 0.083% Inhal Sol (2.5 mg/3 mL) UD INH PRN (18:01)
[2017-10-24] MEDS: Cefepime 1gm in NS 100ml 1 GM/100 ML BAG IVPB SCH ×2 (18:04→23:03)
--- NOTE | 2017-10-24 19:19 | CP.PCM.HP ---
<Kelvin Lyons - Last Filed: 10/24/17 17:27> History of Present Illness - History of Present Illness History of Present Illness: Hospitalist Service H&P Kelvin Lyons, PGY-3 IM CC: shortness of breath/L chest pain x3 days This is a 41 yo M with hx of Factor V Leiden s/p DVTs/PEs/IVC filter/L ventricular thrombectomy (2004) on Coumadin, HTN, DM, CHF s/p AICD placement, AICD replacement 2/2 [place] [facility] [place] psoriatic arthritis, HLD, and splenectomy (2003) who presents with complaint of shortness of breath and left-sided chest pain x3 days. Of not, HPI/ROS limited as patient is poor historian, unreliable historian. As per patient, approx 3 weeks ago, after last Cosentyn injection for psoriatic arthritis (monoclonal antibody), he started feeling unwell. As per pt's pharmacy, he was started on Bentyl 40mg and Prednisone 20mg daily each for 5 days, and Augmentin 875mg BID for 10 days (Patient only recalls the augmentin). He reports completion of the course, no improvement of symptoms, and for the last 2-3 days, feeling so weak and malaised that he remained in bed, did not eat anything (reports "vomiting up" any PO liquid intake during this time), and did not take his medications. Today, he checked his blood sugars, found them elevated at 400's, took some of his home insulin, did not see an improvement, and [place] [facility] Chest pain is left-sided, non-radiating, worse with deep breathing and palpation. Denies shortness of breath currently at rest, but admits to at-rest shortness of breath while at home and exertional shortness of breath. Reports emesis with PO intake at home, including fluids, but denies hematemesis/biliary emesis. Admits to intermittent diarrhea, but denies recurrent and persistent watery diarrhea, denies melena/hematochezia. Denies productive cough, sputum, radiation of chest pain, hx of similar chest pain, hemoptysis, swelling of upper or lower extremities, trauma, falls, dizziness, room-spinning, vision changes, syncope, near-syncope, or gasping for air. Does admit to subjective fevers and chills at home for last 3 days. All other ROS in 12-system review were negative. While in the ED, he was found to have a trop of 0.13, EKG concerning for new T wave depression in V4-6, WBCs 29, Glucose 464, anion gap of 18, and an INR of 1.04. Concern for DKA, PE with RV strain, and sepsis in setting of medication non-compliance, hx of Factor V Leiden, hx of multiple VTEs, and recent immunosuppresive medications. Of note, when reaching out to patient pharmacy, several medications he reports being on (specifically Lisinopril and Coreg) were last obtained in Nov 2016, and refills ordered this year were never picked up. Additionally, he reports that his PMD is Dr. Lowe, but the pharmacy reported that he has scripts for Lisopril 5mg written in July this year by Dr. Madeline Pizarro and Dr. Mac, so unclear if he actually has a PMD or if he is bouncing between multiple physicians. 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 Lowe Pharmacy: [facility] [address] [facility] as per Pharmacy: -Percocet 10/325mg, TID PRN -Coumadin 9mg daily -Albuterol 0.0083%, 1 vial q6 prn -Calcipotriene 0.0005% ointment, apply to affected area BID -Coreg 6.25mg BID (not picked up since May 2017) -Lisinopril 5mg daily (not picked up since July 2017) -Lipitor 20mg daily -Gabapentin 800mg TID (never picked up) -Methotrexate 15mg weekly Present on Admission - Present on Admission Any Indicators Present on Admission: Yes History of DVT/PE: Yes History of Uncontrolled Diabetes: Yes Urinary Catheter: No Decubitus Ulcer Present: No Review of Systems - Review of Systems All systems: reviewed and no additional remarkable complaints except (as per HPI ) Past Patient History - Infectious Disease Hx of Infectious Diseases: None - Tetanus Immunizations Tetanus Immunization: Up to Date (3 years ago) - Past Medical History & Family History Past Medical History?: Yes - Past Social History Smoking Status: Never Smoked - CARDIAC Hx Cardiac Disorders: Yes Hx Congestive Heart Failure: Yes Other/Comment: open heart to left ventricle to remove blood clot, dvt/ivc filter , multiple pe and dvt's, 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 - MUSCULOSKELETAL/RHEUMATOLOGICAL Hx Musculoskeletal Disorders: Yes Hx Falls: No Hx Fractures: Yes (FEMORAL FX ORIF REMOVAL OF HARDWARE) Hx Unsteady Gait: Yes Other/Comment: right orif and hardware removal - GASTROINTESTINAL Hx Gastrointestinal Disorders: Yes Hx Gastroesophageal Reflux: Yes - GENITOURINARY/GYNECOLOGICAL Hx Genitourinary Disorders: Yes Other/Comment: ERECTILE DYSFUNCTION/penile implant - PSYCHIATRIC Hx Psychophysiologic Disorder: No Hx Substance Use: Yes (quit 2 yrs ago) - SURGICAL HISTORY Other/Comment: Femur fracture right 2003,DVT IVC FILTER,OPEN HEART SURGERY-CLOT REMOVAL FOR L VENTRICLE 2004, arthoscopic debridement, synovectomy sx for right septic knee joint and left arm picc line insertion, 09/15/2015, splenectomy 2003 , tonsillectomy 13 days ago at [facility], difibrillator implaint 2017 - ANESTHESIA Hx Anesthesia: Yes Hx Anesthesia Reactions: No Hx Malignant Hyperthermia: No Meds Allergies/Adverse Reactions: Allergies Allergy/AdvReac Type Severity Reaction Status Date / Time No Known Allergies Allergy Verified 02/03/18 18:49 Physical Exam - Constitutional Appears: Non-toxic, No Acute Distress, Other (Appears unwell, but not acutely or chronically ill) - Head Exam Head Exam: ATRAUMATIC, NORMOCEPHALIC - Eye Exam Eye Exam: EOMI, Normal appearance. absent: Conjunctival injection, Scleral icterus Pupil Exam: absent: Fixed, Irregular - ENT Exam ENT Exam: Mucous Membranes Dry Additional comments: No epistaxis or nasal secretion crusting along exterior of nose, nose midline No appreciable oral candidiasis - Neck Exam Neck exam: Negative for: Lymphadenopathy, Tenderness, Thyromegaly Additional comments: Trachea midline - Respiratory Exam Respiratory Exam: Chest Wall Tenderness (Reproducible on palpation at left 3rd- 5th ribs along mid-clavicular line, no pain elsewhere in chest wall, baseline pain worse with deep respirations for lung ausculation), Clear to Auscultation Bilateral, NORMAL BREATHING PATTERN. absent: Accessory Muscle Use, Decreased Breath Sounds, Rales, Rhonchi, Wheezes Additional comments: of note, pt self-limiting depth of breaths due to exacerbation of chest wall pain with deep breathing, but does appear to be sufficient breaths for ausculation not tachypnic no appreciable alexander cyanosis No cough, retracting, accessory muscle use, overt wheezing or gurgling with routine breathing, or stridor - Cardiovascular Exam Cardiovascular Exam: REGULAR RHYTHM, RRR, +S1, +S2, Systolic Murmur (faint systolic murmur at left upper sternal border). absent: Bradycardia, Tachycardia , Irregular Rhythm, JVD, +S4 - GI/Abdominal Exam GI & Abdominal Exam: Normal Bowel Sounds, Soft. absent: Diminished Bowel Sounds , Distended, Firm, Guarding, Hyperactive Bowel Sounds, Hypoactive Bowel Sounds, Rigid, Tenderness - Extremities Exam Extremities exam: Positive for: pedal pulses present (+2 radials and +1 dorsalis pedis bilaterally). Negative for: calf tenderness, joint swelling, pedal edema, tenderness Additional comments: no cold extremities distally - Neurological Exam Additional comments: awake and alert, following all commands appropriately, moving all extremities spontaneously motor appears grossly intact and equal bilaterally no facial droop or asymmetry appreciated - Psychiatric Exam Additional comments: flat mood and affect, poor historian with poor insight and recall regarding his medical conditions - Skin Skin Exam: Dry, Intact, Normal Color, Warm Results - Vital Signs Recent Vital Signs: Last Vital Signs Temp 98.4 F 10/24/17 13:21 Pulse 78 10/24/17 13:21 Resp 18 10/24/17 13:21 BP 110/66 10/24/17 13:21 Pulse Ox 98 10/24/17 13:21 - Labs Result Diagrams: 10/24/17 14:21 10/24/17 14:21 Labs: Laboratory Results - last 24 hr 10/24/17 16:47 POC Glucose (mg/dL) 431 H* Assessment & Plan - Assessment and Plan (Free Text) Assessment: This is a 41 yo M with hx of Factor V Leiden s/p DVTs/PEs/IVC filter/L ventricular thrombectomy (2004) on Coumadin, HTN, DM, CHF s/p AICD placement, AICD replacement 2/2 [place] [facility] [place] psoriatic arthritis, HLD, and splenectomy (2003) who presents with complaint of shortness of breath and left-sided chest pain x3 days. He is being worked up for NSTEMI vs R-heart strain from possible PE, suspected sepsis with WBCs 29 but unclear source, and possible DKA. Pending evaluation for possible admission to ICU. Plan: 1) Chest pain/shortness of breath x3 days ddx: NSTEMI vs PE with R heart strain vs DKA vs Sepsis (source unknown) vs CHF exacerbation -subtherapeutic INR at 1.04, hx of inherited Factor V Leiden with extensive DVT/ PE hx -Trop 0.13, trending 2 more q6; EKG in ED concerning for new T wave depression in V4-6 not seen on prior EKGs ACS vs cardiac strain from PE, will start Heparin drip for NSTEMI pending CTA to r/o PE, will convert to VTE/DVT dosing if CTA positive for PE Hx CHF with EF 35% on last echo (July 2016) and AICD, BNP 2160 in ED, so only careful and limited hydration for this patient -Cardio consulted, appreciate their recs -Glucose 464, Gap 18, but due to CHF, not been aggressively fluid rehydrated; 1L NS ordered at 50cc/hr, Regular Insulin SC 10u x1 ordered, Lispro Medium sliding scale ordered, A1c ordered Repeat CMP to reassess Glucose, anion gap, and Albumin If glucose and gap remain elevated, pt will likely require insulin drip; ICU consulted to evaluate patient NPO until determined if DKA, if so, NPO until gap closed and transitioned to long acting insulin -WBCs 29, no clear source, may be reactive 2/2 DKA, but given reported N/V/D by patient, will assess for GI source, CT abd/pelvis ordered Denies recent frequent watery diarrhea, but given severity of leukocytosis and recent augmentin use, will obtain stool C. diff testing to r/o c diff collitis ABG shock panel pending, f/u lactate, but even if septic, unable to properly rehydrate Given recent hx of immunosuppresive agents (cosentyn, methotrexate, recent steroids), empirically cover with IV Vanco and Cefepime, UA ordered, blood/urine/sputum cultures ordered, procal ordered, ID consulted -Pt reports hx of Coreg 6.25mg BID for CHF and Lisinopril 5mg daily for CHF/HTN , but pharmacy reports neither filled this year; given BP 110/66, will only order 3.125 mg Coreg BID, to provide some CHF benefit without dropping BP too much; will hold Lisinopril -No reported hx of asthma or COPD, but pharmacy confirms previously on nebulized Albuterol, will order PRN; no wheezing or dyspnea on exam, no need for steroids at this time -Drug screen, coags ordered, f/u -Given heparin drip increases risk for GI bleed, will cover GI ppx with Protonix daily 2) DM -pending determination if currently in DKA -s/p 10 units regular insulin SC, pending gentle hydration with NS at 50cc/hr ( due to CHF) -Med sliding scale ordered -Pt reports hx of Lantus 40u HS and Humalog 40u BID, but not confirmed by pharmacy, and patient not reliable historian, so will monitor on current regimen and adjust accordingly; alternatively, if ends up on insulin drip, can calculate new requirements and transition to appropriate long-acting/short- acting regimen 3) CHF -EF on last in-house Echo 35% (July 2016) -reports hx of recent AICD removal and replacement due to infected hardware, [place] [facility] [place]Cardio consulted, appreciate all recs 4) Factor V Leiden on Coumadin -questionable compliance with AC -INR 1.04 on admission -Heparin drip for NSTEMI vs VTE, pending CTA to rule out PE -holding coumadin for now, will bridge while on heparin when patient's condition more stable Dispo: Telemetry vs ICU (pending ICU eval), NSTEMI vs PE with RV strain vs DKA vs sepsis, pending CTA chest and CT abd/pelvis, results of initial workup FEN: NPO, NS at 50cc/hr Access: Peripheral IVs Consults: Cardio, ID, ICU Ppx: Protonix for GI, Heparin drip covers for DVT Patient seen, reviewed, and discussed with attending, Dr. Bernadine Rosales. <Shreya Rosales R - Last Filed: 10/25/17 18:02> Results - Vital Signs Recent Vital Signs: Last Vital Signs Temp 97.9 F 10/25/17 16:44 Pulse 68 10/25/17 16:40 Resp 18 10/25/17 16:40 BP 107/69 10/25/17 16:00 Pulse Ox 100 10/25/17 16:40 - Labs Result Diagrams: 10/25/17 13:50 10/25/17 13:50 Labs: Laboratory Results - last 24 hr 10/24/17 10/24/17 10/24/17 17:35 18:16 20:35 WBC RBC Hgb Hct MCV MCH MCHC RDW Plt Count MPV Gran % Lymph % (Auto) Preston % (Auto) Eos % (Auto) Baso % (Auto) Gran # Lymph # (Auto) Preston # (Auto) Eos # (Auto) Baso # (Auto) Neutrophils % (Manual) Band Neutrophils % Lymphocytes % (Manual) Monocytes % (Manual) Platelet Evaluation PT INR APTT pCO2 29 L pO2 89.0 HCO3 16.8 L ABG pH 7.37 ABG Total CO2 17.7 L ABG O2 Saturation 98.1 H ABG Base Excess -7.1 L ABG Potassium 4.3 Sodium 129.0 L Chloride 96.0 L Glucose 445 H* Lactate 1.3 FiO2 21.0 Potassium Carbon Dioxide Anion Gap BUN Creatinine Est GFR ( Amer) Est GFR (Non-Af Amer) POC Glucose (mg/dL) 401 H* 364 H Random Glucose Lactic Acid Calcium Phosphorus Magnesium Total Bilirubin AST ALT Alkaline Phosphatase Troponin I Total Protein Albumin Globulin Albumin/Globulin Ratio Triglycerides Cholesterol LDL Cholesterol Direct HDL Cholesterol Arterial Blood Potassium 4.3 Urine Color Urine Appearance Urine pH Ur Specific [place] Urine Protein Urine Glucose (UA) Urine Ketones Urine Blood Urine Nitrate Urine Bilirubin Urine Urobilinogen Ur Leukocyte Esterase Urine Opiates Screen Urine Methadone Screen Ur Barbiturates Screen Ur Phencyclidine Scrn Ur Amphetamines Screen U Benzodiazepines Scrn U Oth Cocaine Metabols U Cannabinoids Screen 10/24/17 10/24/17 10/24/17 21:07 21:07 22:18 WBC RBC Hgb Hct MCV MCH MCHC RDW Plt Count MPV Gran % Lymph % (Auto) Preston % (Auto) Eos % (Auto) Baso % (Auto) Gran # Lymph # (Auto) Preston # (Auto) Eos # (Auto) Baso # (Auto) Neutrophils % (Manual) Band Neutrophils % Lymphocytes % (Manual) Monocytes % (Manual) Platelet Evaluation PT INR APTT pCO2 pO2 HCO3 ABG pH ABG Total CO2 ABG O2 Saturation ABG Base Excess ABG Potassium Sodium Chloride Glucose Lactate FiO2 Potassium Carbon Dioxide Anion Gap BUN Creatinine Est GFR ( Amer) Est GFR (Non-Af Amer) POC Glucose (mg/dL) > 500 H* Random Glucose Lactic Acid Calcium Phosphorus Magnesium Total Bilirubin AST ALT Alkaline Phosphatase Troponin I Total Protein Albumin Globulin Albumin/Globulin Ratio Triglycerides Cholesterol LDL Cholesterol Direct HDL Cholesterol Arterial Blood Potassium Urine Color Yellow Urine Appearance Clear Urine pH 6.0 Ur Specific [place] 1.015 Urine Protein Negative Urine Glucose (UA) >=1000 Urine Ketones 40 H Urine Blood Negative Urine Nitrate Negative Urine Bilirubin Negative Urine Urobilinogen 0.2 Ur Leukocyte Esterase Negative Urine Opiates Screen Positive H Urine Methadone Screen Negative Ur Barbiturates Screen Negative Ur Phencyclidine Scrn Negative Ur Amphetamines Screen Negative U Benzodiazepines Scrn Negative U Oth Cocaine Metabols Negative U Cannabinoids Screen Negative 10/24/17 10/24/17 10/25/17 23:11 23:58 00:25 WBC RBC Hgb Hct MCV MCH MCHC RDW Plt Count MPV Gran % Lymph % (Auto) Preston % (Auto) Eos % (Auto) Baso % (Auto) Gran # Lymph # (Auto) Preston # (Auto) Eos # (Auto) Baso # (Auto) Neutrophils % (Manual) Band Neutrophils % Lymphocytes % (Manual) Monocytes % (Manual) Platelet Evaluation PT INR APTT pCO2 pO2 HCO3 ABG pH ABG Total CO2 ABG O2 Saturation ABG Base Excess ABG Potassium Sodium 135 Chloride 97 L Glucose Lactate FiO2 Potassium 4.2 Carbon Dioxide 19 L Anion Gap 23 H BUN 18 Creatinine 0.8 Est GFR ( Amer) > 60 Est GFR (Non-Af Amer) > 60 POC Glucose (mg/dL) 499 H* 454 H* Random Glucose 432 H* Lactic Acid Calcium 9.7 Phosphorus Magnesium Total Bilirubin AST ALT Alkaline Phosphatase Troponin I 0.13 H* Total Protein Albumin Globulin Albumin/Globulin Ratio Triglycerides Cholesterol LDL Cholesterol Direct HDL Cholesterol Arterial Blood Potassium Urine Color Urine Appearance Urine pH Ur Specific [place] Urine Protein Urine Glucose (UA) Urine Ketones Urine Blood Urine Nitrate Urine Bilirubin Urine Urobilinogen Ur Leukocyte Esterase Urine Opiates Screen Urine Methadone Screen Ur Barbiturates Screen Ur Phencyclidine Scrn Ur Amphetamines Screen U Benzodiazepines Scrn U Oth Cocaine Metabols U Cannabinoids Screen 10/25/17 10/25/17 10/25/17 00:25 00:51 02:04 WBC RBC Hgb Hct MCV MCH MCHC RDW Plt Count MPV Gran % Lymph % (Auto) Preston % (Auto) Eos % (Auto) Baso % (Auto) Gran # Lymph # (Auto) Preston # (Auto) Eos # (Auto) Baso # (Auto) Neutrophils % (Manual) Band Neutrophils % Lymphocytes % (Manual) Monocytes % (Manual) Platelet Evaluation PT 12.3 INR 1.08 APTT 33.4 pCO2 pO2 HCO3 ABG pH ABG Total CO2 ABG O2 Saturation ABG Base Excess ABG Potassium Sodium Chloride Glucose Lactate FiO2 Potassium Carbon Dioxide Anion Gap BUN Creatinine Est GFR ( Amer) Est GFR (Non-Af Amer) POC Glucose (mg/dL) 400 H* 386 H Random Glucose Lactic Acid Calcium Phosphorus Magnesium Total Bilirubin AST ALT Alkaline Phosphatase Troponin I Total Protein Albumin Globulin Albumin/Globulin Ratio Triglycerides Cholesterol LDL Cholesterol Direct HDL Cholesterol Arterial Blood Potassium Urine Color Urine Appearance Urine pH Ur Specific [place] Urine Protein Urine Glucose (UA) Urine Ketones Urine Blood Urine Nitrate Urine Bilirubin Urine Urobilinogen Ur Leukocyte Esterase Urine Opiates Screen Urine Methadone Screen Ur Barbiturates Screen Ur Phencyclidine Scrn Ur Amphetamines Screen U Benzodiazepines Scrn U Oth Cocaine Metabols U Cannabinoids Screen 10/25/17 10/25/17 10/25/17 05:30 05:30 05:30 WBC 23.4 H RBC 4.84 Hgb 13.8 L Hct 40.3 L MCV 83.3 MCH 28.5 MCHC 34.2 RDW 14.0 Plt Count 193 MPV 12.6 H Gran % 91.2 H Lymph % (Auto) 7.2 L Preston % (Auto) 1.6 Eos % (Auto) 0.0 L Baso % (Auto) 0.0 Gran # 21.34 H Lymph # (Auto) 1.7 Preston # (Auto) 0.4 Eos # (Auto) 0.0 Baso # (Auto) 0.01 Neutrophils % (Manual) 72 H Band Neutrophils % 7 H Lymphocytes % (Manual) 17 L Monocytes % (Manual) 4 Platelet Evaluation Normal PT 13.7 H INR 1.19 APTT 37.7 H pCO2 pO2 HCO3 ABG pH ABG Total CO2 ABG O2 Saturation ABG Base Excess ABG Potassium Sodium 139 Chloride 106 Glucose Lactate FiO2 Potassium 2.8 L* D Carbon Dioxide 16 L Anion Gap 20 BUN 23 H Creatinine 1.1 Est GFR ( Amer) > 60 Est GFR (Non-Af Amer) > 60 POC Glucose (mg/dL) Random Glucose 191 H Lactic Acid Calcium 9.4 Phosphorus 0.6 L* Magnesium 1.6 L Total Bilirubin 1.3 AST 65 H D ALT 30 Alkaline Phosphatase 242 H D Troponin I 0.27 H* D Total Protein 5.5 L Albumin 3.3 Globulin 2.3 Albumin/Globulin Ratio 1.4 Triglycerides 140 Cholesterol 141 LDL Cholesterol Direct 94 HDL Cholesterol 23 L Arterial Blood Potassium Urine Color Urine Appearance Urine pH Ur Specific [place] Urine Protein Urine Glucose (UA) Urine Ketones Urine Blood Urine Nitrate Urine Bilirubin Urine Urobilinogen Ur Leukocyte Esterase Urine Opiates Screen Urine Methadone Screen Ur Barbiturates Screen Ur Phencyclidine Scrn Ur Amphetamines Screen U Benzodiazepines Scrn U Oth Cocaine Metabols U Cannabinoids Screen 10/25/17 10/25/17 10/25/17 05:30 11:50 13:50 WBC RBC Hgb Hct MCV MCH MCHC RDW Plt Count MPV Gran % Lymph % (Auto) Preston % (Auto) Eos % (Auto) Baso % (Auto) Gran # Lymph # (Auto) Preston # (Auto) Eos # (Auto) Baso # (Auto) Neutrophils % (Manual) Band Neutrophils % Lymphocytes % (Manual) Monocytes % (Manual) Platelet Evaluation PT INR APTT 127.5 H* pCO2 pO2 HCO3 ABG pH ABG Total CO2 ABG O2 Saturation ABG Base Excess ABG Potassium Sodium Chloride Glucose Lactate FiO2 Potassium Carbon Dioxide Anion Gap BUN Creatinine Est GFR ( Amer) Est GFR (Non-Af Amer) POC Glucose (mg/dL) Random Glucose Lactic Acid 3.8 H Calcium Phosphorus Magnesium Total Bilirubin AST ALT Alkaline Phosphatase Troponin I 0.13 H* D Total Protein Albumin Globulin Albumin/Globulin Ratio Triglycerides Cholesterol LDL Cholesterol Direct HDL Cholesterol Arterial Blood Potassium Urine Color Urine Appearance Urine pH Ur Specific [place] Urine Protein Urine Glucose (UA) Urine Ketones Urine Blood Urine Nitrate Urine Bilirubin Urine Urobilinogen Ur Leukocyte Esterase Urine Opiates Screen Urine Methadone Screen Ur Barbiturates Screen Ur Phencyclidine Scrn Ur Amphetamines Screen U Benzodiazepines Scrn U Oth Cocaine Metabols U Cannabinoids Screen 10/25/17 10/25/17 10/25/17 13:50 13:50 14:11 WBC 42.3 H* D RBC 4.40 Hgb 12.6 L Hct 36.2 L MCV 82.3 MCH 28.6 MCHC 34.8 RDW 14.2 Plt Count 179 MPV 11.0 Gran % 89.4 H Lymph % (Auto) 3.6 L Preston % (Auto) 6.9 H Eos % (Auto) 0.0 L Baso % (Auto) 0.1 Gran # 37.83 H Lymph # (Auto) 1.5 Preston # (Auto) 2.9 H Eos # (Auto) 0.0 Baso # (Auto) 0.03 Neutrophils % (Manual) Band Neutrophils % Lymphocytes % (Manual) Monocytes % (Manual) Platelet Evaluation PT INR APTT pCO2 pO2 HCO3 ABG pH ABG Total CO2 ABG O2 Saturation ABG Base Excess ABG Potassium Sodium 138 Chloride 108 H Glucose Lactate FiO2 Potassium 4.4 Carbon Dioxide 16 L Anion Gap 19 BUN 21 Creatinine 0.8 Est GFR ( Amer) > 60 Est GFR (Non-Af Amer) > 60 POC Glucose (mg/dL) 271 H Random Glucose 262 H Lactic Acid Calcium 9.0 Phosphorus 2.0 L Magnesium 1.5 L Total Bilirubin AST ALT Alkaline Phosphatase Troponin I 0.12 Total Protein Albumin Globulin Albumin/Globulin Ratio Triglycerides Cholesterol LDL Cholesterol Direct HDL Cholesterol Arterial Blood Potassium Urine Color Urine Appearance Urine pH Ur Specific [place] Urine Protein Urine Glucose (UA) Urine Ketones Urine Blood Urine Nitrate Urine Bilirubin Urine Urobilinogen Ur Leukocyte Esterase Urine Opiates Screen Urine Methadone Screen Ur Barbiturates Screen Ur Phencyclidine Scrn Ur Amphetamines Screen U Benzodiazepines Scrn U Oth Cocaine Metabols U Cannabinoids Screen 10/25/17 15:30 WBC RBC Hgb Hct MCV MCH MCHC RDW Plt Count MPV Gran % Lymph % (Auto) [place] % (Auto) Eos % (Auto) Baso % (Auto) Gran # Lymph # (Auto) Preston # (Auto) Eos # (Auto) Baso # (Auto) Neutrophils % (Manual) Band Neutrophils % Lymphocytes % (Manual) Monocytes % (Manual) Platelet Evaluation PT INR APTT pCO2 pO2 HCO3 ABG pH ABG Total CO2 ABG O2 Saturation ABG Base Excess ABG Potassium Sodium Chloride Glucose Lactate FiO2 Potassium Carbon Dioxide Anion Gap BUN Creatinine Est GFR ( Amer) Est GFR (Non-Af Amer) POC Glucose (mg/dL) 267 H Random Glucose Lactic Acid Calcium Phosphorus Magnesium Total Bilirubin AST ALT Alkaline Phosphatase Troponin I Total Protein Albumin Globulin Albumin/Globulin Ratio Triglycerides Cholesterol LDL Cholesterol Direct HDL Cholesterol Arterial Blood Potassium Urine Color Urine Appearance Urine pH Ur Specific [place] Urine Protein Urine Glucose (UA) Urine Ketones Urine Blood Urine Nitrate Urine Bilirubin Urine Urobilinogen Ur Leukocyte Esterase Urine Opiates Screen Urine Methadone Screen Ur Barbiturates Screen Ur Phencyclidine Scrn Ur Amphetamines Screen U Benzodiazepines Scrn U Oth Cocaine Metabols U Cannabinoids Screen Attending/Attestation - Attestation I have personally seen and examined this patient.: Yes I have fully participated in the care of the patient.: Yes I have reviewed all pertinent clinical information: Yes Notes (Text): Patient seen and examined by me at 4:45PM with resident 10/24/17. Case including HPI, physical exam, and assessment and plan discussed with resident. Agree with above with following additions/corrections. Physical exam: General: Awake and alert, lying in bed in no acute distress HEENT: Normocephalic, atraumatic. Extraocular muscles intact. No scleral icterus. Oropharynx is pink. Positive dry mucous membranes. No pharyngeal erythema or exudate appreciated. Neck is supple. Cardiovascular: Normal rhythm. Normal S1, S2. No murmurs, rubs, or gallops appreciated Pulmonary: Normal respiratory effort. Decreased breath sounds. No rhonchi, rales , or wheezing appreciated. Gastrointestinal: Soft, nondistended, nontender. Positive bowel sounds all 4 quadrants, no guarding. Musculoskeletal: Normal range of motion all extremities, no calf tenderness, no edema appreciated, positive left anterior chest wall tenderness. Central nervous system: CN2-12 grossly intact. AAO x 3 Dermatologic: Skin warm and dry Assessment and plan: Patient is a 41-year-old male with past medical history significant for factor V Leiden, DVT/PE status post IVC filter maintained on Coumadin, hypertension, type 2 diabetes, systolic CHF status post AICD placement , status post AICD replacement secondary to infection, psoriatic arthritis maintained on close Cosentyx, and splenectomy that presented to the emergency room with shortness of breath and left-sided chest pain with inspiration. 1. Elevated blood sugars. Positive anion gap. Urine for ketones pending. Likely DKA. ICU consulted, recommendations appreciated. Patient to be placed on insulin drip. Patient placed on low-dose of IV fluids secondary to history of CHF. Monitor electrolytes and anion gap. Monitor Accu-Cheks closely. 2. Leukocytosis. Chest CT ordered. CT abdomen and pelvis ordered. Patient states that he was having diarrhea for approximately 2 days. He was recently on on Augmentin. We'll check stool for C. difficile. Patient is afebrile. However patient is on Cosentyx and high risk for infection. Patient is also s/p splenectomy. Will place on cefepime and vancomycin empirically. Consult ID, follow up recommendations. Chest xray does not show any acute cardiopulmonary disease. Blood cultures and urine cultures pending. ?infection of AICD. Follow up procalcitonin. Follow up lactic acid. 3. Elevated troponin. Likely demand ischemia. Will rule out ACS. Chest pain reproducible. Follow up serial troponins. Follow up 2d echo. Cardiology consulted. Start on heparin drip. Rule out new PE or right heart strain. CTA chest ordered. Monitor on telemetry. Given ASA 325mg PO daily. Start ASA [address] on Coreg 3.125mg PO BID with hold parameters. 4. Chronic systolic CHF. S/P AICD placement. Unclear what medications patient actually takes at home. Seems to be a component of noncompliance. Will place on Coreg 3.125mg PO BID with holding parameter. Appears to be compensated. Follow up 2D echo. Cardiology consulted, follow up recommendations 5. History of PE/DVT. Factor V Leiden. D-dimer elevated. Patient states he has not taken his coumadin in 2-3 days. INR 1.04. Will place on heparin drip. Check CTA chest to rule out PE. 6. GI/DVT prophylaxis. Protonix and heparin drip 7. Patient to be monitored closely in ICU. Case was discussed in detail with patient regarding current diagnosis and treatment plan.
[2017-10-24] MEDS: Heparin25000 units/250ml 1/2NS 25,000 UNITS/250 ML BAG IV SCH (19:22)
--- NOTE | 2017-10-24 20:49 | CP.PCM.CON ---
History of Present Illness - History of Present Illness History of Present Illness: Infectious Disease Consultation: October 24, 2017 41 yo male with extensive PMHx that includes Factor V Leiden s/p DVTs/PEs/IVC filter/L ventricular thrombectomy (2004) on Coumadin, HTN, DM, CHF s/p AICD placement, AICD replacement 2/2 infected hardware (May 2017 at [facility] [place] as per patient), psoriatic arthritis, HLD, and splenectomy (2003) who presents with complaint of shortness of breath and left-sided chest pain x3 days. As per patient, he started to feel unwell 3 weeks ago after receiving last Cosentyn injection. He apparently received Bentyl and Prednisone for 5 days with 10 days of Augmentin. No improvement. Had SOB at home and high glucose levels above 400. Claimed poor oral intake. Elevated trop in ER here at [facility] [place]. Question of medication compliance as the patient's pharmacy has several medications listed there that have not been filled in the past year. PMHx: Factor V Leiden s/p DVTs/PEs/IVC filter/L ventricular thrombectomy (2004) on Coumadin, HTN, DM, CHF s/p AICD placement, AICD replacement 2/2 infected hardware (May 2017 at [facility] as per patient), psoriatic arthritis, HLD, and splenectomy (2003) PSHx: L ventricular thromboectomy (2003), R Femur fracture repair (2003), IVC filter placement, arthoscopic debridement, synovectomy for right septic knee joint, splenectomy 2003, tonsillectomy 2016, AICD placement, AICD removal and replacement (2/2 infected hardware) Allergies: NKDA Social Hx: No tobacco, Prior EtOH Abuse, Prior Ectasy and Crystal Meth abuse. Active Medications Albuterol Sulfate (Albuterol 0.083% Inhal Isha (2.5 Mg/3 Ml) Ud) 2.5 mg INH [id number] PRN PRN Reason: Shortness of Breath Aspirin (Aspirin Chewable) 81 mg PO DAILY LA Atorvastatin Calcium (Lipitor) 20 mg PO DIN LA Carvedilol (Coreg) 3.125 mg PO 0800,1800 LA Cefepime HCl (Maxipime 1gm) 1 gm in 100 mls @ 100 mls/hr IVPB Q8 LA PRN Reason: Protocol Last Admin: 10/24/17 18:04 Dose: 100 mls/hr Vancomycin HCl (Vancomycin 1gm) 1 gm in 250 mls @ 167 mls/hr IVPB Q12 LA PRN Reason: Protocol Sodium Chloride (Sodium Chloride 0.9%) 1,000 mls @ 150 mls/hr IV .Q6H40M LA Stop: 10/24/17 22:54 Last Admin: 10/24/17 19:21 Dose: 150 mls/hr Insulin Human Regular 100 (units/ Sodium Chloride) 100 mls @ 4 mls/hr IV .Q24H PRN; Protocol; 4 UNITS/HR PRN Reason: TITRATE PER MD ORDER Heparin Sodium/Sodium Chloride (Heparin 77323 Units/250ml 1/2 Normal Saline) 25 ,000 units in 250 mls @ 14.288 mls/hr IV .[id number] LA; 18 UNITS/KG/HR PRN Reason: Protocol Last Admin: 10/24/17 19:22 Dose: 18 units/kg/hr, 14.288 mls/hr Insulin Human Lispro (Humalog Med) 0 units SC ACHS LA PRN Reason: Protocol Family Hx: AK - Father CAD - Mother ROS: Nausea, Poor appetite No fevers, chest pain, abdominal pain, melena, hematuria, hematemesis, hematochezia, depression, anxiety. Past Patient History - Infectious Disease Hx of Infectious Diseases: None - Tetanus Immunizations Tetanus Immunization: Up to Date (3 years ago) - Past Medical History & Family History Past Medical History?: Yes - Past Social History Smoking Status: Never Smoked - CARDIAC Hx Cardiac Disorders: Yes Hx Congestive Heart Failure: Yes Other/Comment: open heart to left ventricle to remove blood clot, dvt/ivc filter , multiple pe and dvt's, 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 - MUSCULOSKELETAL/RHEUMATOLOGICAL Hx Musculoskeletal Disorders: Yes Hx Falls: No Hx Fractures: Yes (FEMORAL FX ORIF REMOVAL OF HARDWARE) Hx Unsteady Gait: Yes Other/Comment: right orif and hardware removal - GASTROINTESTINAL Hx Gastrointestinal Disorders: Yes Hx Gastroesophageal Reflux: Yes - GENITOURINARY/GYNECOLOGICAL Hx Genitourinary Disorders: Yes Other/Comment: ERECTILE DYSFUNCTION/penile implant - PSYCHIATRIC Hx Psychophysiologic Disorder: No Hx Substance Use: Yes (quit 2 yrs ago) - SURGICAL HISTORY Other/Comment: Femur fracture right 2003,DVT IVC FILTER,OPEN HEART SURGERY-CLOT REMOVAL FOR L VENTRICLE 2004, arthoscopic debridement, synovectomy sx for right septic knee joint and left arm picc line insertion, 09/15/2015, splenectomy 2003 , tonsillectomy 13 [facility], difibrillator implaint 2016 - ANESTHESIA Hx Anesthesia: Yes Hx Anesthesia Reactions: No Hx Malignant Hyperthermia: No Meds Allergies/Adverse Reactions: Allergies Allergy/AdvReac Type Severity Reaction Status Date / Time No Known Allergies Allergy Verified 04/01/17 18:49 - Medications Medications: Current Medications Albuterol Sulfate (Albuterol 0.083% Inhal Isha (2.5 Mg/3 Ml) Ud) 2.5 mg INH [id number] PRN PRN Reason: Shortness of Breath Aspirin (Aspirin Chewable) 81 mg PO DAILY [facility] Atorvastatin Calcium (Lipitor) 20 mg PO DIN [facility] Carvedilol (Coreg) 3.125 mg PO 0800,1800 [facility] Cefepime HCl (Maxipime 1gm) 1 gm in 100 mls @ 100 mls/hr IVPB Q8 LA PRN Reason: Protocol Last Admin: 10/24/17 18:04 Dose: 100 mls/hr Vancomycin HCl (Vancomycin 1gm) 1 gm in 250 mls @ 167 mls/hr IVPB Q12 LA PRN Reason: Protocol Sodium Chloride (Sodium Chloride 0.9%) 1,000 mls @ 150 mls/hr IV .Q6H40M [facility] Stop: 10/24/17 22:54 Last Admin: 10/24/17 19:21 Dose: 150 mls/hr Insulin Human Regular 100 (units/ Sodium Chloride) 100 mls @ 4 mls/hr IV .Q24H PRN; Protocol; 4 UNITS/HR PRN Reason: TITRATE PER MD ORDER Heparin Sodium/Sodium Chloride (Heparin 67503 Units/250ml 1/2 Normal Saline) 25 ,000 units in 250 mls @ 14.288 mls/hr IV .[id number] LA; 18 UNITS/KG/HR PRN Reason: Protocol Last Admin: 10/24/17 19:22 Dose: 18 units/kg/hr, 14.288 mls/hr Insulin Human Lispro (Humalog Med) 0 units SC ACHS LA PRN Reason: Protocol Lisinopril (Zestril) 5 mg PO DAILY LA Physical Exam - Constitutional Appears: Non-toxic, No Acute Distress - Head Exam Head Exam: ATRAUMATIC, NORMOCEPHALIC - Eye Exam Eye Exam: EOMI, PERRL Pupil Exam: NORMAL ACCOMODATION, PERRL - ENT Exam ENT Exam: Mucous Membranes Moist, Normal External Ear Exam, TM's Normal Bilaterally - Neck Exam Neck exam: Positive for: Full Rom, Normal Inspection - Respiratory Exam Respiratory Exam: Chest Wall Tenderness, Clear to Auscultation Bilateral, NORMAL BREATHING PATTERN - Cardiovascular Exam Cardiovascular Exam: REGULAR RHYTHM, RRR, +S1, +S2 - GI/Abdominal Exam GI & Abdominal Exam: Normal Bowel Sounds, Soft. absent: Distended, Tenderness - Extremities Exam Extremities exam: Positive for: full ROM, pedal pulses present. Negative for: joint swelling, pedal edema - Neurological Exam Neurological exam: Alert, CN II-XII Intact, Oriented x3 - Psychiatric Exam Psychiatric exam: Flat Affect - Skin Skin Exam: Intact, Normal Color, Warm Results - Vital Signs Recent Vital Signs: Last Vital Signs Temp 97.9 F 10/24/17 16:00 Pulse 83 10/24/17 18:20 Resp 19 10/24/17 18:20 BP 110/66 10/24/17 13:21 Pulse Ox 98 10/24/17 18:20 - Labs Result Diagrams: 10/24/17 14:21 10/24/17 14:21 Labs: Laboratory Results - last 24 hr 10/24/17 10/24/17 10/24/17 16:47 17:35 18:16 pCO2 29 L pO2 89.0 HCO3 16.8 L ABG pH 7.37 ABG Total CO2 17.7 L ABG O2 Saturation 98.1 H ABG Base Excess -7.1 L ABG Potassium 4.3 Sodium 129.0 L Chloride 96.0 L Glucose 445 H* Lactate 1.3 FiO2 21.0 POC Glucose (mg/dL) 431 H* 401 H* Arterial Blood Potassium 4.3 Assessment & Plan - Assessment and Plan (Free Text) Assessment: 41 yo male with vague complaints of feeling unwell with significant leukocytosis of 29. Extensive PMHx of L ventricular thromboectomy (2003), R Femur fracture repair (2003), IVC filter placement, arthoscopic debridement, synovectomy for right septic knee joint, splenectomy 2003, tonsillectomy 2016, AICD placement, AICD removal and replacement (2/2 infected hardware). The patient with complaints of SOB and left sided chest pain. No specific findings of the Chest X-ray. Supportive care. Started on Cefepime and IV Vancomycin at this time. Lund cultures. May need further imaging studies with CT scan. Thank you for allowing me to participate in the care of the patient, we will follow with you.
[2017-10-24 21:19] LABS: URINE BILIRUBIN NEGATIVE (NEGATIVE); URINE BLOOD NEGATIVE (NEGATIVE); URINE GLUCOSE (UA) >=1000 mg/dL (NEGATIVE); URINE LEUKOCYTE ESTERASE NEGATIVE Leu/uL (NEGATIVE); URINE PROTEIN NEGATIVE mg/dL (<30 mg/dL); URINE UROBILINOGEN 0.2 E.U./dL (<1 E.U./dL)
[2017-10-24 21:20] LABS: URINE APPEARANCE CLEAR (CLEAR); URINE COLOR YELLOW (YELLOW)
[2017-10-24 21:57] LABS: BARBITURATES, UR NEGATIVE (NEGATIVE); BENZODIAZEPINES, UR NEGATIVE (NEGATIVE); OPIATES, UR POSITIVE (NEGATIVE); PHENCYCLIDINE, UR NEGATIVE (NEGATIVE)
[2017-10-24] MEDS ORDERED: Insulin Lispro (humaLOG) LOW Coverage SC SCH (22:00)
[2017-10-24] MEDS ORDERED: Vancomycin 1gm in NS 250ml 1 GM/250 ML BAG IVPB SCH (22:00)
[2017-10-24] MEDS: Insulin Lispro (humaLOG) MEDIUM Coverage SC SCH (22:30)
[2017-10-24] MEDS: Pantoprazole 40 mg EC Tab PO SCH (22:31)
[2017-10-24] MEDS: Insulin Regular 100 UNITS in Sodium Chloride 0.9% 99 ML IV PRN (23:12)
[2017-10-25] MEDS ORDERED: Morphine 2 mg/ml ISec IVP ONE (00:32)
[2017-10-25 00:59] LABS: BLOOD UREA NITROGEN 18 mg/dL (7-21); CALCIUM 9.7 mg/dL (8.4-10.5); GFR NON-AFRICAN AMERICAN > 60; INR 1.08; PARTIAL THROMBOPLASTIN TIME 33.4 Seconds (25.1-36.5); PROTHROMBIN TIME 12.3 SECONDS (9.4-12.5)
[2017-10-25 01:19] LABS: TROPONIN I 0.13 ng/mL
[2017-10-25] MEDS ORDERED: Sodium Chloride 0.9% 1,000 ML IV STA ×2 (02:41→06:15)
[2017-10-25] MEDS: Cefepime 1gm in NS 100ml 1 GM/100 ML BAG IVPB SCH ×3 (05:14→21:54)
[2017-10-25] MEDS: Vancomycin 1gm in NS 250ml 1 GM/250 ML BAG IVPB SCH ×2 (05:15→17:29)
--- NOTE | 2017-10-25 06:10 | CON ---
Copied To: Aaron Conway MD Attending MD: Aaron Conway MD DATE: 10/24/2017 HISTORY OF PRESENT ILLNESS: This is 41-year-old gentleman with a history of hypercoagulable state, history of PE and DVT in the past, diabetes, severe left ventricular systolic dysfunction who presented this time with 4-day history of substantial pleuritic chest pain (increased on deep inspiration and reproducible on deep palpation). The patient describes pain as severe, close to 8-9/10 sharp that interfere with his ability to sleep and perform activity of daily living. The onset is rather sudden. The patient never experienced this pain before. Of note, the patient reports having fever, chills about 4 weeks ago and never completely recover from that. The patient does have history of psoriasis and is on Cosentyx for it, shot of which appears triggered his episode of infection timeline novoa. No nausea, vomiting, diarrhea or constipation. SOCIAL HISTORY: No alcohol, illicit drug abuse. No tobacco smoking. FAMILY HISTORY: Noncontributory. MEDICATIONS: At home, Cosentyx, Lantus insulin, lisinopril, Coumadin. PAST MEDICAL HISTORY: Hypercoagulable state, PE, DVT, psoriasis (on Cosentyx), diabetes, CHF. REVIEW OF SYSTEM: Review of 12-organ system other than mentioned in history of present illness is negative. PHYSICAL EXAMINATION: VITAL SIGNS: Blood pressure 110/66, temperature 98.4, heart rate 78, respiratory rate 18, oxygen saturation 98% on room air. HEENT: Head and neck atraumatic. LUNGS: Clear to auscultation bilaterally. HEART: Regular rate and rhythm. S1, S2 distant. ABDOMEN: Soft, nontender, nondistended. MUSCULOSKELETAL: No C/C/E. NEUROLOGIC: The patient moves all extremities spontaneously. SKIN: Moist. PSYCH: The patient is alert, in [id number] distress due to pleuritic chest pain. LABORATORY DATA: Sodium 130, potassium 4.6, chloride 93, carbon dioxide 19, BUN 21, creatinine 0.8, glucose 431. Troponin 0.13. ProBNP 2160, AST 12, ALT 19, total bilirubin 1.1. WBC 29.1, hemoglobin 12.5, platelet count 289. INR 1.04. D-dimers significantly elevated at 380. EKG showed ST depression in V4, V5, V6, lead I and aVL; however, it appears to be old even though appears slightly to be deeper. Chest x-ray, no active pulmonary disease. Echocardiogram performed 1 year ago showed severe left ventricular systolic dysfunction with ejection fraction about 35%. ASSESSMENT/PLAN: This is 41-year-old gentleman who presented with 4-day history of pleuritic chest pain in the setting of a hypercoagulable state, subtherapeutic INR despite being on Coumadin, accompanied by shortness of breath. The patient was also found to have substantially elevated blood glucose and anion gap suggests a diagnosis of diabetic ketoacidosis. Troponin and BMP were also elevated which might be due to either recurrent pulmonary embolism with RV strain, or primary cardiac event. At present time, we will proceed with insulin drip. Fluid resuscitation with normal saline at 150 mL/hour. Accu-Chek every 1 hour. BMP every 4 hours. Once anion gap closed, we will switch to long-acting subcutaneous formulation of insulin. I will order another echocardiogram. Therapeutic anticoagulation with heparin empirically will be started. CT chest with pulmonary embolism protocol will be done and followed up. I agree with lisinopril for afterload reduction. At present time, the patient is hemodynamically stable and I do not think he needs ionotropic support. The patient will be going to ICU for further management and monitoring. Troponin will be trended. We will continue target euvolemia, euglycemia, normothermia and oxygen saturation more than 90%. We will continue with GI prophylaxis. ccm time 40 min Aaron Conway MD MTDZayra
[2017-10-25] MEDS: Pantoprazole 40 mg EC Tab PO SCH (06:27)
[2017-10-25 06:37] LABS: BASO # 0.01 K/mm3 (0.0-2.0); GRAN # 21.34 (1.4-6.5); GRAN % 91.2 % (50.0-68.0); HEMOGLOBIN 13.8 g/dL (14.0-18.0); LYMPH # 1.7 (1.2-3.4); LYMPH % 7.2 % (22.0-35.0); MEAN CELL VOLUME 83.3 fl (80.0-105.0); MEAN CORPUSCULAR HEMOGLOBIN 28.5 pg (25.0-35.0); MEAN CORPUSCULAR HGB CONC 34.2 g/dl (31.0-37.0); MEAN PLATELET VOLUME 12.6 fl (7.0-11.0); MONO # 0.4 (0.1-0.6); MONO % 1.6 % (1.0-6.0); PLATELET COUNT 193 10^3/uL (120.0-450.0); RBC 4.84 10^6/uL (3.5-6.1); WHITE BLOOD COUNT 23.4 10^3/ul (4.5-11.0)
[2017-10-25 06:49] LABS: INR 1.19; PARTIAL THROMBOPLASTIN TIME 37.7 Seconds (25.1-36.5); PROTHROMBIN TIME 13.7 SECONDS (9.4-12.5)
[2017-10-25] MEDS ORDERED: NOREPINEPHRINE BIT/0.9 % NACL 4 MG/250 ML BAG IV PRN (07:48)
[2017-10-25] MEDS: Insulin Lispro (humaLOG) MEDIUM Coverage SC SCH ×2 (08:05→12:51)
[2017-10-25 08:17] LABS: ALB/GLOB RATIO 1.4 (1.1-1.8); ALBUMIN 3.3 g/dL (3.0-4.8); ALT/SGPT 30 U/L (7-56); AST/SGOT 65 U/L (17-59); BLOOD UREA NITROGEN 23 mg/dL (7-21); CALCIUM 9.4 mg/dL (8.4-10.5); GFR NON-AFRICAN AMERICAN > 60
[2017-10-25] MEDS ORDERED: Potassium Phosphate 15 MMOLE in Dextrose 5% In Water 250 ML IVPB ONE (08:38)
[2017-10-25] MEDS ORDERED: Potassium Phosphate 15 MMOLE in Sodium Chloride 0.9% 250 ML IVPB ONE ×2 (08:45→13:11)
[2017-10-25 08:54] LABS: TROPONIN I 0.27 ng/mL
[2017-10-25 08:59] LABS: HDL CHOLESTEROL 23 mg/dL (29-60)
[2017-10-25 09:09] LABS: LDL CHOLESTEROL 94 mg/dL (0-129)
[2017-10-25 09:20] LABS: BAND 7 % (0-2); LYMPHOCYTE 17 % (22.0-35.0); MONOCYTE 4 % (1.0-6.0); NEUTROPHIL 72 % (50.0-70.0); PLATELET ESTIMATE NORMAL (NORMAL)
[2017-10-25] MEDS ORDERED: Potassium Chloride 40 mEq/30 ml LIQ UD PO ONE (09:20)
[2017-10-25] MEDS: Dextrose 5%/0.45% NS 1,000 ML IV SCH ×2 (09:28→21:59)
--- NOTE | 2017-10-25 10:16 | CARD ---
APPROVED REPORT Date of service: 10/24/2017 EKG Measurement Heart [id number] <Conclusion> Normal sinus rhythm Possible Left atrial enlargement Left axis deviation Low voltage QRS Poor R wave progression ST & T wave abnormality, consider lateral ischemia Prolonged QT Abnormal ECG
--- NOTE | 2017-10-25 10:28 | CT ---
Date of service: 10/24/2017 PROCEDURE: CT Abdomen and Pelvis without intravenous contrast HISTORY: severe leukocytosis V/D, collits vs abscess? COMPARISON: None. TECHNIQUE: Without contrast.. Contrast dose: Radiation dose: Total exam DLP = 410 mGy-cm. This CT exam was performed using one or more of the following dose reduction techniques: Automated exposure control, adjustment of the mA and/or kV according to patient size, and/or use of iterative reconstruction technique. FINDINGS: LOWER THORAX: Unremarkable. LIVER: Unremarkable. No gross lesion or ductal dilatation. GALLBLADDER AND BILE DUCTS: Gallstones PANCREAS: Unremarkable. No gross lesion or ductal dilatation. SPLEEN: Unremarkable. ADRENALS: Unremarkable. No mass. KIDNEYS AND URETERS: The kidneys have a lobulated contour most likely due to underlying cysts. There is some cortical atrophy on the right. Findings are unchanged. VASCULATURE: Unremarkable. No aortic aneurysm. Caval filter BOWEL: Unremarkable. No obstruction. No gross mural thickening. Mild constipation APPENDIX: Unremarkable. Normal appendix. PERITONEUM: Unremarkable. No free fluid. No free air. LYMPH NODES: Unremarkable. No enlarged lymph nodes. BLADDER: Unremarkable. REPRODUCTIVE: Unremarkable. BONES: No acute fracture. OTHER FINDINGS: The report concurs with the preliminary [facility] report IMPRESSION: No acute intra-abdominal findings
--- NOTE | 2017-10-25 11:22 | CT ---
Date of service: 10/24/2017 PROCEDURE: CT Chest with contrast (Pulmonary Angiogram) HISTORY: subtherapeutic INR, CP/SOB w/ h/o DVTs COMPARISON: None available. TECHNIQUE: Axial computed tomography images were obtained of the chest in the pulmonary arterial phase of enhancement. Coronal and sagittal reformatted images were created and reviewed. Intravenous contrast dose: 100 cc of Visipaque Radiation dose: Total exam DLP = 443 mGy-cm. This CT exam was performed using one or more of the following dose reduction techniques: Automated exposure control, adjustment of the mA and/or kV according to patient size, and/or use of iterative reconstruction technique. FINDINGS: PULMONARY ARTERIES: Unremarkable. No pulmonary embolism. AORTA: No acute findings. No thoracic aortic aneurysm. LUNGS: Unremarkable. No nodule, mass or pulmonary consolidation. PLEURAL SPACES: Unremarkable. No effusion or pneumothorax. HEART: Unremarkable. No cardiomegaly. No significant pericardial effusion. LYMPH NODES: No lymphadenopathy. BONES, CHEST WALL: Unremarkable. No fracture or destructive lesion OTHER FINDINGS: Unremarkable. IMPRESSION: Unremarkable CT pulmonary angiogram. No pulmonary embolus.
--- NOTE | 2017-10-25 12:10 | CARD ---
APPROVED REPORT Date of service: 10/25/2017 EKG Measurement Heart [id number] <Conclusion> Normal sinus rhythm Possible Left atrial enlargement Left axis deviation Low voltage QRS, limb leads PRWP IVCD STTW changes c/w ischemia Prolonged QTc
--- NOTE | 2017-10-25 12:52 | CP.CCUPN ---
<Jaylan Rosales - Last Filed: 10/25/17 14:00> CCU Subjective - Physician Review Subjective (Free Text): 10/25/17 12:46 Jaylan Rosales DO PGY1 - Internal medicine Space Technologist - ICU Progress Note Nate was seen and examined this Am at [facility] in ICU [place] patient was febrile and hemodynamically unstable; Given PO tylenol, bolused fluids, and started on midodrine PO. Still voicing complaints of pleuritic chest pain and some nausea; denies any SOB , cough, abd pain, V/D/C, dizziness/ light headedness. 12 system ROS otherwise negative. Critical Care Time Spent (in minutes): 60 CCU Objective - Vital Signs / Intake & Output Vital Signs (Last 4 hours): Vital Signs Pulse Resp BP 10/25/17 11:00 79 28 H 10/25/17 10:50 88 19 10/25/17 10:40 77 14 10/25/17 10:39 105/62 10/25/17 10:38 68 28 H 10/25/17 10:37 79 31 H 10/25/17 10:36 80 27 H 10/25/17 10:35 75 27 H 10/25/17 10:34 78 20 10/25/17 10:33 79 28 H 10/25/17 10:32 77 22 10/25/17 10:31 76 20 10/25/17 10:30 76 32 H 10/25/17 10:29 78 18 10/25/17 10:28 76 29 H 10/25/17 10:27 77 25 H 10/25/17 10:26 74 31 H 10/25/17 10:25 74 28 H 10/25/17 10:24 78 10/25/17 10:23 78 23 10/25/17 10:22 77 29 H 10/25/17 10:21 76 21 10/25/17 10:20 75 27 H 10/25/17 10:19 79 21 10/25/17 10:18 76 10/25/17 10:17 79 10/25/17 10:16 77 26 H 10/25/17 10:15 73 22 10/25/17 10:14 75 10/25/17 10:13 79 34 H 10/25/17 10:12 79 20 10/25/17 10:11 79 31 H 10/25/17 10:10 78 21 10/25/17 10:09 76 19 10/25/17 10:08 78 26 H 10/25/17 10:07 78 27 H 10/25/17 10:06 78 28 H 10/25/17 10:05 81 10/25/17 10:04 79 10/25/17 10:03 77 26 H 10/25/17 10:02 76 10/25/17 10:01 77 25 H 10/25/17 10:00 88/51 L 10/25/17 09:59 76 13 10/25/17 09:58 78 10/25/17 09:57 76 Intake and Output (Last 8hrs): Intake & Output 10/24/17 10/25/17 10/25/17 22:59 06:59 14:59 Intake Total 3101 47 Output Total 875 Balance 2226 47 Weight 173 lb 3.2 oz Intake: IV 3101 47 0.9 2000 abx 700 heparin 200 insulin 67 Output: Urine 875 Urine, Voided 875 Other: Voiding Method Urinal - Physical Exam Head: Positive for: Atraumatic, Normocephalic Pupils: Positive for: PERRL Extroacular Muscles: Positive for: EOMI Conjunctiva: Positive for: Normal Mouth: Positive for: Moist Mucous Membranes Respiratory/Chest: Positive for: Clear to Auscultation (equal bilaterally), Good Air Exchange, Tender to Palpation (left anterior chest wall). Negative for : Respiratory Distress, Accessory Muscle Use, Wheezes, Rales, Rhonchi Cardiovascular: Positive for: Regular Rate and Rhythm, Normal S1, S2. Negative for: Murmurs Abdomen: Negative for: Tenderness, Distention, Peritoneal Signs Upper Extremity: Positive for: Normal Inspection. Negative for: Cyanosis, Edema Lower Extremity: Positive for: Normal Inspection, NORMAL PULSES (distal pulses equal and strong). Negative for: Edema (no pedal edema) Neurological: Positive for: GCS=15, CN II-XII Intact, Speech Normal Skin: Positive for: Warm, Dry, Normal Color. Negative for: Rashes Psychiatric: Positive for: Alert, Oriented x 3, Normal Insight, Normal Concentration - Medications Active Medications: Active Medications Generic Name Dose Route Start Last Admin Trade Name Freq PRN Reason Stop Dose Admin Acetaminophen 650 mg 10/24/17 23:25 10/24/17 23:58 Tylenol 325mg Tab PO 650 mg Q6H PRN Administration Temperature Albuterol Sulfate 2.5 mg 10/24/17 18:01 Albuterol 0.083% Inhal Isha (2.5 Mg/3 Ml) Ud INH [id number] PRN Shortness of Breath Aspirin 81 mg 10/25/17 10:00 10/25/17 09:58 Aspirin Chewable PO 81 mg DAILY LA Administration Atorvastatin Calcium 20 mg 10/24/17 18:15 10/24/17 23:04 Lipitor PO 20 mg DIN LA Administration Carvedilol 3.125 mg 10/25/17 08:00 Coreg PO 0800,1800 [facility] Cefepime HCl 1 gm in 100 mls @ 100 mls/hr 10/24/17 16:30 10/25/17 05:14 Maxipime 1gm IVPB 100 mls/hr Q8 [facility] Administration Protocol Insulin Human Regular 100 100 mls @ 4 mls/hr 10/24/17 17:46 10/25/17 11:13 units/ Sodium Chloride IV 3 units/hr .Q24H PRN 3 mls/hr TITRATE PER MD ORDER Titration Protocol 4 UNITS/HR Heparin Sodium/Sodium Chloride 25,000 units in 250 mls @ 14.288 mls/hr 17:55 10/25/17 08:07 Heparin 99508 Units/250ml 1/2 Normal Saline IV 28 units/kg/hr .[id number] LA 22.226 mls/hr Protocol Titration 18 UNITS/KG/HR Vancomycin HCl 1 gm in 250 mls @ 167 mls/hr 10/24/17 22:00 10/25/17 05:15 Vancomycin 1gm IVPB 167 mls/hr 0600,1800 [facility] Administration Protocol NOREPINEPHRINE BIT/0.9 % NACL 4 mg in 250 mls @ 15 mls/hr 10/25/17 07:48 08:12 Levophed 4 Mg/ 250 Ml Ns Premixed IV 4 mcg/min .[id number] PRN 15 mls/hr TITRATE PER MD ORDER Administration Protocol 4 MCG/MIN Potassium Phosphate 15 mmole/ 255 mls @ 42.5 mls/hr 10/25/17 08:45 10/25/17 09:59 Sodium Chloride IVPB 10/25/17 14:44 42.5 mls/hr ONCE ONE Administration Dextrose/Sodium Chloride 1,000 mls @ 100 mls/hr 10/25/17 08:45 10/25/17 09:28 Dextrose 5%/0.45% Ns 1000 Ml IV 100 mls/hr .Q10H LA Administration Insulin Human Lispro 0 units 10/24/17 22:00 10/25/17 08:05 Humalog Med SC Not Given ACHS [facility] Protocol Midodrine 10 mg 10/25/17 06:14 10/25/17 09:58 Proamatine PO 10 mg TID LA Administration Pantoprazole Sodium 40 mg 10/24/17 20:45 10/25/17 06:27 Protonix Ec Tab PO 40 mg 0600 LA Administration - Patient Studies Lab Studies: Lab Studies 10/25/17 10/25/17 10/25/17 Range/Units 11:50 05:30 05:30 WBC (4.5-11.0) 10^3/ul RBC (3.5-6.1) 10^6/uL Hgb (14.0-18.0) g/dL Hct (42.0-52.0) % MCV (80.0-105.0) fl MCH (25.0-35.0) pg MCHC (31.0-37.0) g/dl RDW (11.5-14.5) % Plt Count (120.0-450.0) 10^3/uL MPV (7.0-11.0) fl Gran % (50.0-68.0) % Lymph % (Auto) (22.0-35.0) % [place] % (Auto) (1.0-6.0) % Eos % (Auto) (1.5-5.0) % Baso % (Auto) (0.0-3.0) % Gran # (1.4-6.5) Lymph # (Auto) (1.2-3.4) [place] # (Auto) (0.1-0.6) Eos # (Auto) (0.0-0.7) Baso # (Auto) (0.0-2.0) K/mm3 Neutrophils % (Manual) (50.0-70.0) % Band Neutrophils % (0-2) % Lymphocytes % (Manual) (22.0-35.0) % Monocytes % (Manual) (1.0-6.0) % Platelet Evaluation (NORMAL) PT (9.4-12.5) SECONDS INR APTT (25.1-36.5) Seconds pCO2 (35-45) mm/Hg pO2 (80-100) mm/Hg HCO3 (21-28) mmol/L ABG pH (7.35-7.45) ABG Total CO2 (22-28) mmol.L ABG O2 Saturation (95-98) % ABG Base Excess (-2.0-3.0) mmol/L ABG Potassium (3.6-5.2) mmol/L Sodium 139 (132-148) mmol/L Chloride 106 (98-107) mmol/L Glucose (75-110) mg/dl Lactate (0.7-2.1) mmol/L FiO2 % Potassium 2.8 L* D (3.6-5.0) mmol/L Carbon Dioxide 16 L (21-33) mmol/L Anion Gap 20 (10-20) BUN 23 H (7-21) mg/dL Creatinine 1.1 (0.8-1.5) mg/dl Est GFR ( Amer) > 60 Est GFR (Non-Af Amer) > 60 POC Glucose (mg/dL) (65-110) mg/dL Random Glucose 191 H (70-110) mg/dL Lactic Acid 3.8 H (0.7-2.1) mmol/L Calcium 9.4 (8.4-10.5) mg/dL Phosphorus 0.6 L* (2.5-4.5) mg/dL Magnesium 1.6 L (1.7-2.2) mg/dL Total Bilirubin 1.3 (0.2-1.3) mg/dL AST 65 H D (17-59) U/L ALT 30 (7-56) U/L Alkaline Phosphatase 242 H D (38-126) U/L Troponin I 0.13 H* D 0.27 H* D ng/mL Total Protein 5.5 L (5.8-8.3) g/dL Albumin 3.3 (3.0-4.8) g/dL Globulin 2.3 gm/dL Albumin/Globulin Ratio 1.4 (1.1-1.8) Triglycerides 140 (35-160) mg/dL Cholesterol 141 (130-200) mg/dL LDL Cholesterol Direct 94 (0-129) mg/dL HDL Cholesterol 23 L (29-60) mg/dL Arterial Blood Potassium (3.6-5.2) mmol/L Urine Color (YELLOW) Urine Appearance (CLEAR) Urine pH (4.7-8.0) Ur Specific Ernul (1.005-1.035) Urine Protein (<30 mg/dL) mg/dL Urine Glucose (UA) (NEGATIVE) mg/dL Urine Ketones (NEGATIVE) mg/dL Urine Blood (NEGATIVE) Urine Nitrate (NEGATIVE) Urine Bilirubin (NEGATIVE) Urine Urobilinogen (<1 E.U./dL) E.U./dL Ur Leukocyte Esterase (NEGATIVE) Cori/uL Urine Opiates Screen (NEGATIVE) Urine Methadone Screen (NEGATIVE) Ur Barbiturates Screen (NEGATIVE) Ur Phencyclidine Scrn (NEGATIVE) Ur Amphetamines Screen (NEGATIVE) U Benzodiazepines Scrn (NEGATIVE) U Oth Cocaine Metabols (NEGATIVE) U Cannabinoids Screen (NEGATIVE) 10/25/17 10/25/17 10/25/17 Range/Units 05:30 05:30 02:04 WBC 23.4 H (4.5-11.0) 10^3/ul RBC 4.84 (3.5-6.1) 10^6/uL Hgb 13.8 L (14.0-18.0) g/dL Hct 40.3 L (42.0-52.0) % MCV 83.3 (80.0-105.0) fl MCH 28.5 (25.0-35.0) pg MCHC 34.2 (31.0-37.0) g/dl RDW 14.0 (11.5-14.5) % Plt Count 193 (120.0-450.0) 10^3/uL MPV 12.6 H (7.0-11.0) fl Gran % 91.2 H (50.0-68.0) % Lymph % (Auto) 7.2 L (22.0-35.0) % [place] % (Auto) 1.6 (1.0-6.0) % Eos % (Auto) 0.0 L (1.5-5.0) % Baso % (Auto) 0.0 (0.0-3.0) % Gran # 21.34 H (1.4-6.5) Lymph # (Auto) 1.7 (1.2-3.4) [place] # (Auto) 0.4 (0.1-0.6) Eos # (Auto) 0.0 (0.0-0.7) Baso # (Auto) 0.01 (0.0-2.0) K/mm3 Neutrophils % (Manual) 72 H (50.0-70.0) % Band Neutrophils % 7 H (0-2) % Lymphocytes % (Manual) 17 L (22.0-35.0) % Monocytes % (Manual) 4 (1.0-6.0) % Platelet Evaluation Normal (NORMAL) PT 13.7 H (9.4-12.5) SECONDS INR 1.19 APTT 37.7 H (25.1-36.5) Seconds pCO2 (35-45) mm/Hg pO2 (80-100) mm/Hg HCO3 (21-28) mmol/L ABG pH (7.35-7.45) ABG Total CO2 (22-28) mmol.L ABG O2 Saturation (95-98) % ABG Base Excess (-2.0-3.0) mmol/L ABG Potassium (3.6-5.2) mmol/L Sodium (132-148) mmol/L Chloride (98-107) mmol/L Glucose (75-110) mg/dl Lactate (0.7-2.1) mmol/L FiO2 % Potassium (3.6-5.0) mmol/L Carbon Dioxide (21-33) mmol/L Anion Gap (10-20) BUN (7-21) mg/dL Creatinine (0.8-1.5) mg/dl Est GFR ( Amer) Est GFR (Non-Af Amer) POC Glucose (mg/dL) 386 H (65-110) mg/dL Random Glucose (70-110) mg/dL Lactic Acid (0.7-2.1) mmol/L Calcium (8.4-10.5) mg/dL Phosphorus (2.5-4.5) mg/dL Magnesium (1.7-2.2) mg/dL Total Bilirubin (0.2-1.3) mg/dL AST (17-59) U/L ALT (7-56) U/L Alkaline Phosphatase (38-126) U/L Troponin I ng/mL Total Protein (5.8-8.3) g/dL Albumin (3.0-4.8) g/dL Globulin gm/dL Albumin/Globulin Ratio (1.1-1.8) Triglycerides (35-160) mg/dL Cholesterol (130-200) mg/dL LDL Cholesterol Direct (0-129) mg/dL HDL Cholesterol (29-60) mg/dL Arterial Blood Potassium (3.6-5.2) mmol/L Urine Color (YELLOW) Urine Appearance (CLEAR) Urine pH (4.7-8.0) Ur Specific Ernul (1.005-1.035) Urine Protein (<30 mg/dL) mg/dL Urine Glucose (UA) (NEGATIVE) mg/dL Urine Ketones (NEGATIVE) mg/dL Urine Blood (NEGATIVE) Urine Nitrate (NEGATIVE) Urine Bilirubin (NEGATIVE) Urine Urobilinogen (<1 E.U./dL) E.U./dL Ur Leukocyte Esterase (NEGATIVE) Cori/uL Urine Opiates Screen (NEGATIVE) Urine Methadone Screen (NEGATIVE) Ur Barbiturates Screen (NEGATIVE) Ur Phencyclidine Scrn (NEGATIVE) Ur Amphetamines Screen (NEGATIVE) U Benzodiazepines Scrn (NEGATIVE) U Oth Cocaine Metabols (NEGATIVE) U Cannabinoids Screen (NEGATIVE) 10/25/17 10/25/17 10/25/17 Range/Units 00:51 00:25 00:25 WBC (4.5-11.0) 10^3/ul RBC (3.5-6.1) 10^6/uL Hgb (14.0-18.0) g/dL Hct (42.0-52.0) % MCV (80.0-105.0) fl MCH (25.0-35.0) pg MCHC (31.0-37.0) g/dl RDW (11.5-14.5) % Plt Count (120.0-450.0) 10^3/uL MPV (7.0-11.0) fl Gran % (50.0-68.0) % Lymph % (Auto) (22.0-35.0) % [place] % (Auto) (1.0-6.0) % Eos % (Auto) (1.5-5.0) % Baso % (Auto) (0.0-3.0) % Gran # (1.4-6.5) Lymph # (Auto) (1.2-3.4) [place] # (Auto) (0.1-0.6) Eos # (Auto) (0.0-0.7) Baso # (Auto) (0.0-2.0) K/mm3 Neutrophils % (Manual) (50.0-70.0) % Band Neutrophils % (0-2) % Lymphocytes % (Manual) (22.0-35.0) % Monocytes % (Manual) (1.0-6.0) % Platelet Evaluation (NORMAL) PT 12.3 (9.4-12.5) SECONDS INR 1.08 APTT 33.4 (25.1-36.5) Seconds pCO2 (35-45) mm/Hg pO2 (80-100) mm/Hg HCO3 (21-28) mmol/L ABG pH (7.35-7.45) ABG Total CO2 (22-28) mmol.L ABG O2 Saturation (95-98) % ABG Base Excess (-2.0-3.0) mmol/L ABG Potassium (3.6-5.2) mmol/L Sodium 135 (132-148) mmol/L Chloride 97 L (98-107) mmol/L Glucose (75-110) mg/dl Lactate (0.7-2.1) mmol/L FiO2 % Potassium 4.2 (3.6-5.0) mmol/L Carbon Dioxide 19 L (21-33) mmol/L Anion Gap 23 H (10-20) BUN 18 (7-21) mg/dL Creatinine 0.8 (0.8-1.5) mg/dl Est GFR ( Amer) > 60 Est GFR (Non-Af Amer) > 60 POC Glucose (mg/dL) 400 H* (65-110) mg/dL Random Glucose 432 H* (70-110) mg/dL Lactic Acid (0.7-2.1) mmol/L Calcium 9.7 (8.4-10.5) mg/dL Phosphorus (2.5-4.5) mg/dL Magnesium (1.7-2.2) mg/dL Total Bilirubin (0.2-1.3) mg/dL AST (17-59) U/L ALT (7-56) U/L Alkaline Phosphatase (38-126) U/L Troponin I 0.13 H* ng/mL Total Protein (5.8-8.3) g/dL Albumin (3.0-4.8) g/dL Globulin gm/dL Albumin/Globulin Ratio (1.1-1.8) Triglycerides (35-160) mg/dL Cholesterol (130-200) mg/dL LDL Cholesterol Direct (0-129) mg/dL HDL Cholesterol (29-60) mg/dL Arterial Blood Potassium (3.6-5.2) mmol/L Urine Color (YELLOW) Urine Appearance (CLEAR) Urine pH (4.7-8.0) Ur Specific Ernul (1.005-1.035) Urine Protein (<30 mg/dL) mg/dL Urine Glucose (UA) (NEGATIVE) mg/dL Urine Ketones (NEGATIVE) mg/dL Urine Blood (NEGATIVE) Urine Nitrate (NEGATIVE) Urine Bilirubin (NEGATIVE) Urine Urobilinogen (<1 E.U./dL) E.U./dL Ur Leukocyte Esterase (NEGATIVE) Cori/uL Urine Opiates Screen (NEGATIVE) Urine Methadone Screen (NEGATIVE) Ur Barbiturates Screen (NEGATIVE) Ur Phencyclidine Scrn (NEGATIVE) Ur Amphetamines Screen (NEGATIVE) U Benzodiazepines Scrn (NEGATIVE) U Oth Cocaine Metabols (NEGATIVE) U Cannabinoids Screen (NEGATIVE) 10/24/17 10/24/17 10/24/17 Range/Units 23:58 23:11 22:18 WBC (4.5-11.0) 10^3/ul RBC (3.5-6.1) 10^6/uL Hgb (14.0-18.0) g/dL Hct (42.0-52.0) % MCV (80.0-105.0) fl MCH (25.0-35.0) pg MCHC (31.0-37.0) g/dl RDW (11.5-14.5) % Plt Count (120.0-450.0) 10^3/uL MPV (7.0-11.0) fl Gran % (50.0-68.0) % Lymph % (Auto) (22.0-35.0) % [place] % (Auto) (1.0-6.0) % Eos % (Auto) (1.5-5.0) % Baso % (Auto) (0.0-3.0) % Gran # (1.4-6.5) Lymph # (Auto) (1.2-3.4) [place] # (Auto) (0.1-0.6) Eos # (Auto) (0.0-0.7) Baso # (Auto) (0.0-2.0) K/mm3 Neutrophils % (Manual) (50.0-70.0) % Band Neutrophils % (0-2) % Lymphocytes % (Manual) (22.0-35.0) % Monocytes % (Manual) (1.0-6.0) % Platelet Evaluation (NORMAL) PT (9.4-12.5) SECONDS INR APTT (25.1-36.5) Seconds pCO2 (35-45) mm/Hg pO2 (80-100) mm/Hg HCO3 (21-28) mmol/L ABG pH (7.35-7.45) ABG Total CO2 (22-28) mmol.L ABG O2 Saturation (95-98) % ABG Base Excess (-2.0-3.0) mmol/L ABG Potassium (3.6-5.2) mmol/L Sodium (132-148) mmol/L Chloride (98-107) mmol/L Glucose (75-110) mg/dl Lactate (0.7-2.1) mmol/L FiO2 % Potassium (3.6-5.0) mmol/L Carbon Dioxide (21-33) mmol/L Anion Gap (10-20) BUN (7-21) mg/dL Creatinine (0.8-1.5) mg/dl Est GFR ( Amer) Est GFR (Non-Af Amer) POC Glucose (mg/dL) 454 H* 499 H* > 500 H* (65-110) mg/dL Random Glucose (70-110) mg/dL Lactic Acid (0.7-2.1) mmol/L Calcium (8.4-10.5) mg/dL Phosphorus (2.5-4.5) mg/dL Magnesium (1.7-2.2) mg/dL Total Bilirubin (0.2-1.3) mg/dL AST (17-59) U/L ALT (7-56) U/L Alkaline Phosphatase (38-126) U/L Troponin I ng/mL Total Protein (5.8-8.3) g/dL Albumin (3.0-4.8) g/dL Globulin gm/dL Albumin/Globulin Ratio (1.1-1.8) Triglycerides (35-160) mg/dL Cholesterol (130-200) mg/dL LDL Cholesterol Direct (0-129) mg/dL HDL Cholesterol (29-60) mg/dL Arterial Blood Potassium (3.6-5.2) mmol/L Urine Color (YELLOW) Urine Appearance (CLEAR) Urine pH (4.7-8.0) Ur Specific Ernul (1.005-1.035) Urine Protein (<30 mg/dL) mg/dL Urine Glucose (UA) (NEGATIVE) mg/dL Urine Ketones (NEGATIVE) mg/dL Urine Blood (NEGATIVE) Urine Nitrate (NEGATIVE) Urine Bilirubin (NEGATIVE) Urine Urobilinogen (<1 E.U./dL) E.U./dL Ur Leukocyte Esterase (NEGATIVE) Cori/uL Urine Opiates Screen (NEGATIVE) Urine Methadone Screen (NEGATIVE) Ur Barbiturates Screen (NEGATIVE) Ur Phencyclidine Scrn (NEGATIVE) Ur Amphetamines Screen (NEGATIVE) U Benzodiazepines Scrn (NEGATIVE) U Oth Cocaine Metabols (NEGATIVE) U Cannabinoids Screen (NEGATIVE) 10/24/17 10/24/17 10/24/17 Range/Units 21:07 21:07 20:35 WBC (4.5-11.0) 10^3/ul RBC (3.5-6.1) 10^6/uL Hgb (14.0-18.0) g/dL Hct (42.0-52.0) % MCV (80.0-105.0) fl MCH (25.0-35.0) pg MCHC (31.0-37.0) g/dl RDW (11.5-14.5) % Plt Count (120.0-450.0) 10^3/uL MPV (7.0-11.0) fl Gran % (50.0-68.0) % Lymph % (Auto) (22.0-35.0) % [place] % (Auto) (1.0-6.0) % Eos % (Auto) (1.5-5.0) % Baso % (Auto) (0.0-3.0) % Gran # (1.4-6.5) Lymph # (Auto) (1.2-3.4) [place] # (Auto) (0.1-0.6) Eos # (Auto) (0.0-0.7) Baso # (Auto) (0.0-2.0) K/mm3 Neutrophils % (Manual) (50.0-70.0) % Band Neutrophils % (0-2) % Lymphocytes % (Manual) (22.0-35.0) % Monocytes % (Manual) (1.0-6.0) % Platelet Evaluation (NORMAL) PT (9.4-12.5) SECONDS INR APTT (25.1-36.5) Seconds pCO2 (35-45) mm/Hg pO2 (80-100) mm/Hg HCO3 (21-28) mmol/L ABG pH (7.35-7.45) ABG Total CO2 (22-28) mmol.L ABG O2 Saturation (95-98) % ABG Base Excess (-2.0-3.0) mmol/L ABG Potassium (3.6-5.2) mmol/L Sodium (132-148) mmol/L Chloride (98-107) mmol/L Glucose (75-110) mg/dl Lactate (0.7-2.1) mmol/L FiO2 % Potassium (3.6-5.0) mmol/L Carbon Dioxide (21-33) mmol/L Anion Gap (10-20) BUN (7-21) mg/dL Creatinine (0.8-1.5) mg/dl Est GFR ( Amer) Est GFR (Non-Af Amer) POC Glucose (mg/dL) 364 H (65-110) mg/dL Random Glucose (70-110) mg/dL Lactic Acid (0.7-2.1) mmol/L Calcium (8.4-10.5) mg/dL Phosphorus (2.5-4.5) mg/dL Magnesium (1.7-2.2) mg/dL Total Bilirubin (0.2-1.3) mg/dL AST (17-59) U/L ALT (7-56) U/L Alkaline Phosphatase (38-126) U/L Troponin I ng/mL Total Protein (5.8-8.3) g/dL Albumin (3.0-4.8) g/dL Globulin gm/dL Albumin/Globulin Ratio (1.1-1.8) Triglycerides (35-160) mg/dL Cholesterol (130-200) mg/dL LDL Cholesterol Direct (0-129) mg/dL HDL Cholesterol (29-60) mg/dL Arterial Blood Potassium (3.6-5.2) mmol/L Urine Color Yellow (YELLOW) Urine Appearance Clear (CLEAR) Urine pH 6.0 (4.7-8.0) Ur Specific Ernul 1.015 (1.005-1.035) Urine Protein Negative (<30 mg/dL) mg/dL Urine Glucose (UA) >=1000 (NEGATIVE) mg/dL Urine Ketones 40 H (NEGATIVE) mg/dL Urine Blood Negative (NEGATIVE) Urine Nitrate Negative (NEGATIVE) Urine Bilirubin Negative (NEGATIVE) Urine Urobilinogen 0.2 (<1 E.U./dL) E.U./dL Ur Leukocyte Esterase Negative (NEGATIVE) Cori/uL Urine Opiates Screen Positive H (NEGATIVE) Urine Methadone Screen Negative (NEGATIVE) Ur Barbiturates Screen Negative (NEGATIVE) Ur Phencyclidine Scrn Negative (NEGATIVE) Ur Amphetamines Screen Negative (NEGATIVE) U Benzodiazepines Scrn Negative (NEGATIVE) U Oth Cocaine Metabols Negative (NEGATIVE) U Cannabinoids Screen Negative (NEGATIVE) 10/24/17 10/24/17 10/24/17 Range/Units 18:16 17:35 16:47 WBC (4.5-11.0) 10^3/ul RBC (3.5-6.1) 10^6/uL Hgb (14.0-18.0) g/dL Hct (42.0-52.0) % MCV (80.0-105.0) fl MCH (25.0-35.0) pg MCHC (31.0-37.0) g/dl RDW (11.5-14.5) % Plt Count (120.0-450.0) 10^3/uL MPV (7.0-11.0) fl Gran % (50.0-68.0) % Lymph % (Auto) (22.0-35.0) % [place] % (Auto) (1.0-6.0) % Eos % (Auto) (1.5-5.0) % Baso % (Auto) (0.0-3.0) % Gran # (1.4-6.5) Lymph # (Auto) (1.2-3.4) [place] # (Auto) (0.1-0.6) Eos # (Auto) (0.0-0.7) Baso # (Auto) (0.0-2.0) K/mm3 Neutrophils % (Manual) (50.0-70.0) % Band Neutrophils % (0-2) % Lymphocytes % (Manual) (22.0-35.0) % Monocytes % (Manual) (1.0-6.0) % Platelet Evaluation (NORMAL) PT (9.4-12.5) SECONDS INR APTT (25.1-36.5) Seconds pCO2 29 L (35-45) mm/Hg pO2 89.0 (80-100) mm/Hg HCO3 16.8 L (21-28) mmol/L ABG pH 7.37 (7.35-7.45) ABG Total CO2 17.7 L (22-28) mmol.L ABG O2 Saturation 98.1 H (95-98) % ABG Base Excess -7.1 L (-2.0-3.0) mmol/L ABG Potassium 4.3 (3.6-5.2) mmol/L Sodium 129.0 L (132-148) mmol/L Chloride 96.0 L (98-107) mmol/L Glucose 445 H* (75-110) mg/dl Lactate 1.3 (0.7-2.1) mmol/L FiO2 21.0 % Potassium (3.6-5.0) mmol/L Carbon Dioxide (21-33) mmol/L Anion Gap (10-20) BUN (7-21) mg/dL Creatinine (0.8-1.5) mg/dl Est GFR ( Amer) Est GFR (Non-Af Amer) POC Glucose (mg/dL) 401 H* 431 H* (65-110) mg/dL Random Glucose (70-110) mg/dL Lactic Acid (0.7-2.1) mmol/L Calcium (8.4-10.5) mg/dL Phosphorus (2.5-4.5) mg/dL Magnesium (1.7-2.2) mg/dL Total Bilirubin (0.2-1.3) mg/dL AST (17-59) U/L ALT (7-56) U/L Alkaline Phosphatase (38-126) U/L Troponin I ng/mL Total Protein (5.8-8.3) g/dL Albumin (3.0-4.8) g/dL Globulin gm/dL Albumin/Globulin Ratio (1.1-1.8) Triglycerides (35-160) mg/dL Cholesterol (130-200) mg/dL LDL Cholesterol Direct (0-129) mg/dL HDL Cholesterol (29-60) mg/dL Arterial Blood Potassium 4.3 (3.6-5.2) mmol/L Urine Color (YELLOW) Urine Appearance (CLEAR) Urine pH (4.7-8.0) Ur Specific Ernul (1.005-1.035) Urine Protein (<30 mg/dL) mg/dL Urine Glucose (UA) (NEGATIVE) mg/dL Urine Ketones (NEGATIVE) mg/dL Urine Blood (NEGATIVE) Urine Nitrate (NEGATIVE) Urine Bilirubin (NEGATIVE) Urine Urobilinogen (<1 E.U./dL) E.U./dL Ur Leukocyte Esterase (NEGATIVE) Cori/uL Urine Opiates Screen (NEGATIVE) Urine Methadone Screen (NEGATIVE) Ur Barbiturates Screen (NEGATIVE) Ur Phencyclidine Scrn (NEGATIVE) Ur Amphetamines Screen (NEGATIVE) U Benzodiazepines Scrn (NEGATIVE) U Oth Cocaine Metabols (NEGATIVE) U Cannabinoids Screen (NEGATIVE) Laboratory Results - last 24 hr 10/24/17 10/24/17 10/24/17 16:47 17:35 18:16 WBC RBC Hgb Hct MCV MCH MCHC RDW Plt Count MPV Gran % Lymph % (Auto) [place] % (Auto) Eos % (Auto) Baso % (Auto) Gran # Lymph # (Auto) [place] # (Auto) Eos # (Auto) Baso # (Auto) Neutrophils % (Manual) Band Neutrophils % Lymphocytes % (Manual) Monocytes % (Manual) Platelet Evaluation PT INR APTT pCO2 29 L pO2 89.0 HCO3 16.8 L ABG pH 7.37 ABG Total CO2 17.7 L ABG O2 Saturation 98.1 H ABG Base Excess -7.1 L ABG Potassium 4.3 Sodium 129.0 L Chloride 96.0 L Glucose 445 H* Lactate 1.3 FiO2 21.0 Potassium Carbon Dioxide Anion Gap BUN Creatinine Est GFR ( Amer) Est GFR (Non-Af Amer) POC Glucose (mg/dL) 431 H* 401 H* Random Glucose Lactic Acid Calcium Phosphorus Magnesium Total Bilirubin AST ALT Alkaline Phosphatase Troponin I Total Protein Albumin Globulin Albumin/Globulin Ratio Triglycerides Cholesterol LDL Cholesterol Direct HDL Cholesterol Arterial Blood Potassium 4.3 Urine Color Urine Appearance Urine pH Ur Specific Ernul Urine Protein Urine Glucose (UA) Urine Ketones Urine Blood Urine Nitrate Urine Bilirubin Urine Urobilinogen Ur Leukocyte Esterase Urine Opiates Screen Urine Methadone Screen Ur Barbiturates Screen Ur Phencyclidine Scrn Ur Amphetamines Screen U Benzodiazepines Scrn U Oth Cocaine Metabols U Cannabinoids Screen 10/24/17 10/24/17 10/24/17 20:35 21:07 21:07 WBC RBC Hgb Hct MCV MCH MCHC RDW Plt Count MPV Gran % Lymph % (Auto) [place] % (Auto) Eos % (Auto) Baso % (Auto) Gran # Lymph # (Auto) [place] # (Auto) Eos # (Auto) Baso # (Auto) Neutrophils % (Manual) Band Neutrophils % Lymphocytes % (Manual) Monocytes % (Manual) Platelet Evaluation PT INR APTT pCO2 pO2 HCO3 ABG pH ABG Total CO2 ABG O2 Saturation ABG Base Excess ABG Potassium Sodium Chloride Glucose Lactate FiO2 Potassium Carbon Dioxide Anion Gap BUN Creatinine Est GFR ( Amer) Est GFR (Non-Af Amer) POC Glucose (mg/dL) 364 H Random Glucose Lactic Acid Calcium Phosphorus Magnesium Total Bilirubin AST ALT Alkaline Phosphatase Troponin I Total Protein Albumin Globulin Albumin/Globulin Ratio Triglycerides Cholesterol LDL Cholesterol Direct HDL Cholesterol Arterial Blood Potassium Urine Color Yellow Urine Appearance Clear Urine pH 6.0 Ur Specific Ern[place] 1.015 Urine Protein Negative Urine Glucose (UA) >=1000 Urine Ketones 40 H Urine Blood Negative Urine Nitrate Negative Urine Bilirubin Negative Urine Urobilinogen 0.2 Ur Leukocyte Esterase Negative Urine Opiates Screen Positive H Urine Methadone Screen Negative Ur Barbiturates Screen Negative Ur Phencyclidine Scrn Negative Ur Amphetamines Screen Negative U Benzodiazepines Scrn Negative U Oth Cocaine Metabols Negative U Cannabinoids Screen Negative 10/24/17 10/24/1718 22:18 23:11 23:58 WBC RBC Hgb Hct MCV MCH MCHC RDW Plt Count MPV Gran % Lymph % (Auto) [place] % (Auto) Eos % (Auto) Baso % (Auto) Gran # Lymph # (Auto) [place] # (Auto) Eos # (Auto) Baso # (Auto) Neutrophils % (Manual) Band Neutrophils % Lymphocytes % (Manual) Monocytes % (Manual) Platelet Evaluation PT INR APTT pCO2 pO2 HCO3 ABG pH ABG Total CO2 ABG O2 Saturation ABG Base Excess ABG Potassium Sodium Chloride Glucose Lactate FiO2 Potassium Carbon Dioxide Anion Gap BUN Creatinine Est GFR ( Amer) Est GFR (Non-Af Amer) POC Glucose (mg/dL) > 500 H* 499 H* 454 H* Random Glucose Lactic Acid Calcium Phosphorus Magnesium Total Bilirubin AST ALT Alkaline Phosphatase Troponin I Total Protein Albumin Globulin Albumin/Globulin Ratio Triglycerides Cholesterol LDL Cholesterol Direct HDL Cholesterol Arterial Blood Potassium Urine Color Urine Appearance Urine pH Ur Specific Ernul Urine Protein Urine Glucose (UA) Urine Ketones Urine Blood Urine Nitrate Urine Bilirubin Urine Urobilinogen Ur Leukocyte Esterase Urine Opiates Screen Urine Methadone Screen Ur Barbiturates Screen Ur Phencyclidine Scrn Ur Amphetamines Screen U Benzodiazepines Scrn U Oth Cocaine Metabols U Cannabinoids Screen 10/25/17 10/25/17 10/25/17 00:25 00:25 00:51 WBC RBC Hgb Hct MCV MCH MCHC RDW Plt Count MPV Gran % Lymph % (Auto) [place] % (Auto) Eos % (Auto) Baso % (Auto) Gran # Lymph # (Auto) [place] # (Auto) Eos # (Auto) Baso # (Auto) Neutrophils % (Manual) Band Neutrophils % Lymphocytes % (Manual) Monocytes % (Manual) Platelet Evaluation PT 12.3 INR 1.08 APTT 33.4 pCO2 pO2 HCO3 ABG pH ABG Total CO2 ABG O2 Saturation ABG Base Excess ABG Potassium Sodium 135 Chloride 97 L Glucose Lactate FiO2 Potassium 4.2 Carbon Dioxide 19 L Anion Gap 23 H BUN 18 Creatinine 0.8 Est GFR ( Amer) > 60 Est GFR (Non-Af Amer) > 60 POC Glucose (mg/dL) 400 H* Random Glucose 432 H* Lactic Acid Calcium 9.7 Phosphorus Magnesium Total Bilirubin AST ALT Alkaline Phosphatase Troponin I 0.13 H* Total Protein Albumin Globulin Albumin/Globulin Ratio Triglycerides Cholesterol LDL Cholesterol Direct HDL Cholesterol Arterial Blood Potassium Urine Color Urine Appearance Urine pH Ur Specific Ernul Urine Protein Urine Glucose (UA) Urine Ketones Urine Blood Urine Nitrate Urine Bilirubin Urine Urobilinogen Ur Leukocyte Esterase Urine Opiates Screen Urine Methadone Screen Ur Barbiturates Screen Ur Phencyclidine Scrn Ur Amphetamines Screen U Benzodiazepines Scrn U Oth Cocaine Metabols U Cannabinoids Screen 10/25/17 10/25/17 10/25/17 02:04 05:30 05:30 WBC 23.4 H RBC 4.84 Hgb 13.8 L Hct 40.3 L MCV 83.3 MCH 28.5 MCHC 34.2 RDW 14.0 Plt Count 193 MPV 12.6 H Gran % 91.2 H Lymph % (Auto) 7.2 L [place] % (Auto) 1.6 Eos % (Auto) 0.0 L Baso % (Auto) 0.0 Gran # 21.34 H Lymph # (Auto) 1.7 [place] # (Auto) 0.4 Eos # (Auto) 0.0 Baso # (Auto) 0.01 Neutrophils % (Manual) 72 H Band Neutrophils % 7 H Lymphocytes % (Manual) 17 L Monocytes % (Manual) 4 Platelet Evaluation Normal PT 13.7 H INR 1.19 APTT 37.7 H pCO2 pO2 HCO3 ABG pH ABG Total CO2 ABG O2 Saturation ABG Base Excess ABG Potassium Sodium Chloride Glucose Lactate FiO2 Potassium Carbon Dioxide Anion Gap BUN Creatinine Est GFR ( Amer) Est GFR (Non-Af Amer) POC Glucose (mg/dL) 386 H Random Glucose Lactic Acid Calcium Phosphorus Magnesium Total Bilirubin AST ALT Alkaline Phosphatase Troponin I Total Protein Albumin Globulin Albumin/Globulin Ratio Triglycerides Cholesterol LDL Cholesterol Direct HDL Cholesterol Arterial Blood Potassium Urine Color Urine Appearance Urine pH Ur Specific Ernul Urine Protein Urine Glucose (UA) Urine Ketones Urine Blood Urine Nitrate Urine Bilirubin Urine Urobilinogen Ur Leukocyte Esterase Urine Opiates Screen Urine Methadone Screen Ur Barbiturates Screen Ur Phencyclidine Scrn Ur Amphetamines Screen U Benzodiazepines Scrn U Oth Cocaine Metabols U Cannabinoids Screen 10/25/17 10/25/17 10/25/17 05:30 05:30 11:50 WBC RBC Hgb Hct MCV MCH MCHC RDW Plt Count MPV Gran % Lymph % (Auto) [place] % (Auto) Eos % (Auto) Baso % (Auto) Gran # Lymph # (Auto) [place] # (Auto) Eos # (Auto) Baso # (Auto) Neutrophils % (Manual) Band Neutrophils % Lymphocytes % (Manual) Monocytes % (Manual) Platelet Evaluation PT INR APTT pCO2 pO2 HCO3 ABG pH ABG Total CO2 ABG O2 Saturation ABG Base Excess ABG Potassium Sodium 139 Chloride 106 Glucose Lactate FiO2 Potassium 2.8 L* D Carbon Dioxide 16 L Anion Gap 20 BUN 23 H Creatinine 1.1 Est GFR ( Amer) > 60 Est GFR (Non-Af Amer) > 60 POC Glucose (mg/dL) Random Glucose 191 H Lactic Acid 3.8 H Calcium 9.4 Phosphorus 0.6 L* Magnesium 1.6 L Total Bilirubin 1.3 AST 65 H D ALT 30 Alkaline Phosphatase 242 H D Troponin I 0.27 H* D 0.13 H* D Total Protein 5.5 L Albumin 3.3 Globulin 2.3 Albumin/Globulin Ratio 1.4 Triglycerides 140 Cholesterol 141 LDL Cholesterol Direct 94 HDL Cholesterol 23 L Arterial Blood Potassium Urine Color Urine Appearance Urine pH Ur Specific Ernul Urine Protein Urine Glucose (UA) Urine Ketones Urine Blood Urine Nitrate Urine Bilirubin Urine Urobilinogen Ur Leukocyte Esterase Urine Opiates Screen Urine Methadone Screen Ur Barbiturates Screen Ur Phencyclidine Scrn Ur Amphetamines Screen U Benzodiazepines Scrn U Oth Cocaine Metabols U Cannabinoids Screen EKG/Cardiology Studies: Cardiology / EKG Studies 10/25/17 07:00 EKG [ELECTROCARDIOGRAM] DAILY Comment: Reason For Exam: chest pain f/u Fingerstick Blood Sugar Results: 173 Review of Systems - Review of Systems All systems: reviewed and no additional remarkable complaints except Review of Systems: as per HPI Critical Care Progress Note - Extremities/Vascular Does the Patient have a Central Venous Catheter?: Yes Insertion Site: Internal Jugular Vein (R) - Nutrition Nutrition: Nutrition Category Date Time Status NPO Diet [DIET] Diets 10/25/17 Breakfast Ordered Assessment/Plan - Assessment and Plan (Free Text) Assessment: 41M w/ a PMH significant for Factor V Leiden s/p DVTs/PEs/IVC filter/L ventricular thrombectomy (2004) on Coumadin, HTN, DM, CHF s/p AICD placement, AICD replacement 2/2 infected hardware (May 2017 at [facility] [place]), psoriatic arthritis, HLD, and splenectomy (2003) who presents with complaint of shortness of breath and left-sided chest pain x3 days. Patient is being in the managed for suspected NSTEMI, SIRS, and DKA. Neurology: -AAO3 -Neurologically intact -No change in neuro status, Continue to monitor Cardiovascular: -Hx HFrEF - 30-35% - 07/2016 -Hemodynamically unstable; suspect septic shock most likely however cannot rule out cardiogenic shock vs hypovolemic shock given trops and DKA -On levophed 5mcg/kg/hr; -Central placed; can increase levophed if necessary -Fluid resucitation - s/p 2L Bolus NS, and on D5 1/2 normal @ 100mls/hr for maintenance; must maintain caution w/ fluid resuscitation as patient has a hx of CHF -BNP elevated 2100 -Echo pending -Troponins 0.13, 0.13, 0.27, 0.13; no ST segment elevations; however new T wave changes can be appreciated -Started on heparin drip empirically for NSTEMI -Cardiology Consulted Pulm: -RLL Consolidation; suspect PNA; official read pending cannot exclude CHF -Maintain O2 Sat 95% Endo: -DKA; AG on admission 19; BG 432 -BMP Q4 -On Insulin Drip per DKA Algorithm - 81 Units as of 10/25 - 1100 GI: -NPO -Can resume diet once gap closes /Nephro: -Hypophos; Repleted w/ Kphos -Recheck in AM ID: -Febrile + Hypotensive + Tachycardic -Lactic acid elevated -Procal elevated -CXR w/ some questionable RLL opacities -CTAP wnl -Lund culture pending -Continue Empiric Vancomycin + Cefepime -ID Followoing Patient was seen and examined with attending physician Dr. Felipe Rosales DO PGy1 - Internal Medicine Space Technologist - ICU Progress Note - Date & Time Date: 10/25/17 Time: 14:03 <Tho Wang - Last Filed: 10/25/17 15:31> CCU Subjective - Physician Review Critical Care Time Spent (in minutes): 0 CCU Objective - Vital Signs / Intake & Output Vital Signs (Last 4 hours): Vital Signs Pulse Resp BP Pulse Ox 10/25/17 15:00 74 31 H 83/40 L 100 10/25/17 14:50 69 27 H 98 10/25/17 14:40 66 25 H 99 10/25/17 14:30 78 18 100 10/25/17 14:20 68 28 H 99 10/25/17 14:10 69 42 H 99 10/25/17 14:07 69 20 116/70 100 10/25/17 14:00 74 27 H 75/38 L 100 10/25/17 13:55 72 89/44 L 99 10/25/17 13:50 69 25 H 109/73 100 10/25/17 13:45 68 31 H 117/74 99 10/25/17 13:40 72 34 H 104/58 L 100 10/25/17 13:35 67 24 99/58 L 100 10/25/17 13:30 99/54 L 10/25/17 13:29 70 18 99 10/25/17 13:25 67 23 107/66 99 10/25/17 13:20 74 19 111/65 99 10/25/17 13:15 107/66 10/25/17 13:14 70 20 99 10/25/17 13:10 68 20 105/69 99 10/25/17 13:05 99/62 L 10/25/17 13:04 72 15 99 10/25/17 13:00 71 19 94/54 L 100 10/25/17 12:55 69 24 105/65 99 10/25/17 12:50 64 25 H 118/66 99 10/25/17 12:45 98/61 L 10/25/17 12:44 73 38 H 99 10/25/17 12:40 77 34 H 107/60 98 10/25/17 12:35 69 30 H 104/60 100 10/25/17 12:30 69 27 H 106/65 99 10/25/17 12:25 69 20 107/61 99 10/25/17 12:21 71 30 H 98 Intake and Output (Last 8hrs): Intake & Output 10/25/17 10/25/17 10/25/17 06:59 14:59 22:59 Intake Total 3101 111 Output Total 875 Balance 2226 111 Intake: IV 3101 111 0.9 2000 abx 700 heparin 200 insulin 67 Output: Urine 875 Urine, Voided 875 Other: Voiding Method Urinal - Medications Active Medications: Active Medications Generic Name Dose Route Start Last Admin Trade Name Freq PRN Reason Stop Dose Admin Acetaminophen 650 mg 10/24/17 23:25 10/24/17 23:58 Tylenol 325mg Tab PO 650 mg Q6H PRN Administration Temperature Albuterol Sulfate 2.5 mg 10/24/17 18:01 Albuterol 0.083% Inhal Isha (2.5 Mg/3 Ml) Ud INH [id number] PRN Shortness of Breath Aspirin 81 mg 10/25/17 10:00 10/25/17 09:58 Aspirin Chewable PO 81 mg DAILY LA Administration Atorvastatin Calcium 20 mg 10/24/17 18:15 10/24/17 23:04 Lipitor PO 20 mg DIN LA Administration Carvedilol 3.125 mg 10/25/17 08:00 Coreg PO 0800,1800 [facility] Cefepime HCl 1 gm in 100 mls @ 100 mls/hr 10/24/17 16:30 10/25/17 13:36 Maxipime 1gm IVPB 100 mls/hr Q8 [facility] Administration Protocol Insulin Human Regular 100 100 mls @ 4 mls/hr 10/24/17 17:46 10/25/17 14:19 units/ Sodium Chloride IV 6 units/hr .Q24H PRN 6 mls/hr TITRATE PER MD ORDER Titration Protocol 4 UNITS/HR Heparin Sodium/Sodium Chloride 25,000 units in 250 mls @ 14.288 mls/hr 17:55 10/25/17 14:22 Heparin 18929 Units/250ml 1/2 Normal Saline IV 25 units/kg/hr .[id number] LA 19.845 mls/hr Protocol Titration 18 UNITS/KG/HR Vancomycin HCl 1 gm in 250 mls @ 167 mls/hr 10/24/17 22:00 10/25/17 05:15 Vancomycin 1gm IVPB 167 mls/hr 0600,1800 [facility] Administration Protocol NOREPINEPHRINE BIT/0.9 % NACL 4 mg in 250 mls @ 15 mls/hr 10/25/17 07:48 08:12 Levophed 4 Mg/ 250 Ml Ns Premixed IV 4 mcg/min .[id number] PRN 15 mls/hr TITRATE PER MD ORDER Administration Protocol 4 MCG/MIN Dextrose/Sodium Chloride 1,000 mls @ 100 mls/hr 10/25/17 08:45 10/25/17 09:28 Dextrose 5%/0.45% Ns 1000 Ml IV 100 mls/hr .Q10H LA Administration Pantoprazole Sodium 40 mg 10/24/17 20:45 10/25/17 06:27 Protonix Ec Tab PO 40 mg 0600 LA Administration - Patient Studies Lab Studies: Lab Studies 10/25/17 10/25/17 10/25/17 Range/Units 13:50 13:50 13:50 WBC 42.3 H* D (4.5-11.0) 10^3/ul RBC 4.40 (3.5-6.1) 10^6/uL Hgb 12.6 L (14.0-18.0) g/dL Hct 36.2 L (42.0-52.0) % MCV 82.3 (80.0-105.0) fl MCH 28.6 (25.0-35.0) pg MCHC 34.8 (31.0-37.0) g/dl RDW 14.2 (11.5-14.5) % Plt Count 179 (120.0-450.0) 10^3/uL MPV 11.0 (7.0-11.0) fl Gran % 89.4 H (50.0-68.0) % Lymph % (Auto) 3.6 L (22.0-35.0) % [place] % (Auto) 6.9 H (1.0-6.0) % Eos % (Auto) 0.0 L (1.5-5.0) % Baso % (Auto) 0.1 (0.0-3.0) % Gran # 37.83 H (1.4-6.5) Lymph # (Auto) 1.5 (1.2-3.4) [place] # (Auto) 2.9 H (0.1-0.6) Eos # (Auto) 0.0 (0.0-0.7) Baso # (Auto) 0.03 (0.0-2.0) K/mm3 Neutrophils % (Manual) (50.0-70.0) % Band Neutrophils % (0-2) % Lymphocytes % (Manual) (22.0-35.0) % Monocytes % (Manual) (1.0-6.0) % Platelet Evaluation (NORMAL) PT (9.4-12.5) SECONDS INR APTT 127.5 H* (25.1-36.5) Seconds pCO2 (35-45) mm/Hg pO2 (80-100) mm/Hg HCO3 (21-28) mmol/L ABG pH (7.35-7.45) ABG Total CO2 (22-28) mmol.L ABG O2 Saturation (95-98) % ABG Base Excess (-2.0-3.0) mmol/L ABG Potassium (3.6-5.2) mmol/L Sodium 138 (132-148) mmol/L Chloride 108 H (98-107) mmol/L Glucose (75-110) mg/dl Lactate (0.7-2.1) mmol/L FiO2 % Potassium 4.4 (3.6-5.0) mmol/L Carbon Dioxide 16 L (21-33) mmol/L Anion Gap 19 (10-20) BUN 21 (7-21) mg/dL Creatinine 0.8 (0.8-1.5) mg/dl Est GFR ( Amer) > 60 Est GFR (Non-Af Amer) > 60 POC Glucose (mg/dL) (65-110) mg/dL Random Glucose 262 H (70-110) mg/dL Lactic Acid (0.7-2.1) mmol/L Calcium 9.0 (8.4-10.5) mg/dL Phosphorus 2.0 L (2.5-4.5) mg/dL Magnesium 1.5 L (1.7-2.2) mg/dL Total Bilirubin (0.2-1.3) mg/dL AST (17-59) U/L ALT (7-56) U/L Alkaline Phosphatase (38-126) U/L Troponin I 0.12 ng/mL Total Protein (5.8-8.3) g/dL Albumin (3.0-4.8) g/dL Globulin gm/dL Albumin/Globulin Ratio (1.1-1.8) Triglycerides (35-160) mg/dL Cholesterol (130-200) mg/dL LDL Cholesterol Direct (0-129) mg/dL HDL Cholesterol (29-60) mg/dL Arterial Blood Potassium (3.6-5.2) mmol/L Urine Color (YELLOW) Urine Appearance (CLEAR) Urine pH (4.7-8.0) Ur Specific Ernul (1.005-1.035) Urine Protein (<30 mg/dL) mg/dL Urine Glucose (UA) (NEGATIVE) mg/dL Urine Ketones (NEGATIVE) mg/dL Urine Blood (NEGATIVE) Urine Nitrate (NEGATIVE) Urine Bilirubin (NEGATIVE) Urine Urobilinogen (<1 E.U./dL) E.U./dL Ur Leukocyte Esterase (NEGATIVE) Cori/uL Urine Opiates Screen (NEGATIVE) Urine Methadone Screen (NEGATIVE) Ur Barbiturates Screen (NEGATIVE) Ur Phencyclidine Scrn (NEGATIVE) Ur Amphetamines Screen (NEGATIVE) U Benzodiazepines Scrn (NEGATIVE) U Oth Cocaine Metabols (NEGATIVE) U Cannabinoids Screen (NEGATIVE) 10/25/17 10/25/17 10/25/17 Range/Units 11:50 05:30 05:30 WBC (4.5-11.0) 10^3/ul RBC (3.5-6.1) 10^6/uL Hgb (14.0-18.0) g/dL Hct (42.0-52.0) % MCV (80.0-105.0) fl MCH (25.0-35.0) pg MCHC (31.0-37.0) g/dl RDW (11.5-14.5) % Plt Count (120.0-450.0) 10^3/uL MPV (7.0-11.0) fl Gran % (50.0-68.0) % Lymph % (Auto) (22.0-35.0) % [place] % (Auto) (1.0-6.0) % Eos % (Auto) (1.5-5.0) % Baso % (Auto) (0.0-3.0) % Gran # (1.4-6.5) Lymph # (Auto) (1.2-3.4) [place] # (Auto) (0.1-0.6) Eos # (Auto) (0.0-0.7) Baso # (Auto) (0.0-2.0) K/mm3 Neutrophils % (Manual) (50.0-70.0) % Band Neutrophils % (0-2) % Lymphocytes % (Manual) (22.0-35.0) % Monocytes % (Manual) (1.0-6.0) % Platelet Evaluation (NORMAL) PT (9.4-12.5) SECONDS INR APTT (25.1-36.5) Seconds pCO2 (35-45) mm/Hg pO2 (80-100) mm/Hg HCO3 (21-28) mmol/L ABG pH (7.35-7.45) ABG Total CO2 (22-28) mmol.L ABG O2 Saturation (95-98) % ABG Base Excess (-2.0-3.0) mmol/L ABG Potassium (3.6-5.2) mmol/L Sodium 139 (132-148) mmol/L Chloride 106 (98-107) mmol/L Glucose (75-110) mg/dl Lactate (0.7-2.1) mmol/L FiO2 % Potassium 2.8 L* D (3.6-5.0) mmol/L Carbon Dioxide 16 L (21-33) mmol/L Anion Gap 20 (10-20) BUN 23 H (7-21) mg/dL Creatinine 1.1 (0.8-1.5) mg/dl Est GFR ( Amer) > 60 Est GFR (Non-Af Amer) > 60 POC Glucose (mg/dL) (65-110) mg/dL Random Glucose 191 H (70-110) mg/dL Lactic Acid 3.8 H (0.7-2.1) mmol/L Calcium 9.4 (8.4-10.5) mg/dL Phosphorus 0.6 L* (2.5-4.5) mg/dL Magnesium 1.6 L (1.7-2.2) mg/dL Total Bilirubin 1.3 (0.2-1.3) mg/dL AST 65 H D (17-59) U/L ALT 30 (7-56) U/L Alkaline Phosphatase 242 H D (38-126) U/L Troponin I 0.13 H* D 0.27 H* D ng/mL Total Protein 5.5 L (5.8-8.3) g/dL Albumin 3.3 (3.0-4.8) g/dL Globulin 2.3 gm/dL Albumin/Globulin Ratio 1.4 (1.1-1.8) Triglycerides 140 (35-160) mg/dL Cholesterol 141 (130-200) mg/dL LDL Cholesterol Direct 94 (0-129) mg/dL HDL Cholesterol 23 L (29-60) mg/dL Arterial Blood Potassium (3.6-5.2) mmol/L Urine Color (YELLOW) Urine Appearance (CLEAR) Urine pH (4.7-8.0) Ur Specific Ernul (1.005-1.035) Urine Protein (<30 mg/dL) mg/dL Urine Glucose (UA) (NEGATIVE) mg/dL Urine Ketones (NEGATIVE) mg/dL Urine Blood (NEGATIVE) Urine Nitrate (NEGATIVE) Urine Bilirubin (NEGATIVE) Urine Urobilinogen (<1 E.U./dL) E.U./dL Ur Leukocyte Esterase (NEGATIVE) Cori/uL Urine Opiates Screen (NEGATIVE) Urine Methadone Screen (NEGATIVE) Ur Barbiturates Screen (NEGATIVE) Ur Phencyclidine Scrn (NEGATIVE) Ur Amphetamines Screen (NEGATIVE) U Benzodiazepines Scrn (NEGATIVE) U Oth Cocaine Metabols (NEGATIVE) U Cannabinoids Screen (NEGATIVE) 10/25/17 10/25/17 10/25/17 Range/Units 05:30 05:30 02:04 WBC 23.4 H (4.5-11.0) 10^3/ul RBC 4.84 (3.5-6.1) 10^6/uL Hgb 13.8 L (14.0-18.0) g/dL Hct 40.3 L (42.0-52.0) % MCV 83.3 (80.0-105.0) fl MCH 28.5 (25.0-35.0) pg MCHC 34.2 (31.0-37.0) g/dl RDW 14.0 (11.5-14.5) % Plt Count 193 (120.0-450.0) 10^3/uL MPV 12.6 H (7.0-11.0) fl Gran % 91.2 H (50.0-68.0) % Lymph % (Auto) 7.2 L (22.0-35.0) % [place] % (Auto) 1.6 (1.0-6.0) % Eos % (Auto) 0.0 L (1.5-5.0) % Baso % (Auto) 0.0 (0.0-3.0) % Gran # 21.34 H (1.4-6.5) Lymph # (Auto) 1.7 (1.2-3.4) [place] # (Auto) 0.4 (0.1-0.6) Eos # (Auto) 0.0 (0.0-0.7) Baso # (Auto) 0.01 (0.0-2.0) K/mm3 Neutrophils % (Manual) 72 H (50.0-70.0) % Band Neutrophils % 7 H (0-2) % Lymphocytes % (Manual) 17 L (22.0-35.0) % Monocytes % (Manual) 4 (1.0-6.0) % Platelet Evaluation Normal (NORMAL) PT 13.7 H (9.4-12.5) SECONDS INR 1.19 APTT 37.7 H (25.1-36.5) Seconds pCO2 (35-45) mm/Hg pO2 (80-100) mm/Hg HCO3 (21-28) mmol/L ABG pH (7.35-7.45) ABG Total CO2 (22-28) mmol.L ABG O2 Saturation (95-98) % ABG Base Excess (-2.0-3.0) mmol/L ABG Potassium (3.6-5.2) mmol/L Sodium (132-148) mmol/L Chloride (98-107) mmol/L Glucose (75-110) mg/dl Lactate (0.7-2.1) mmol/L FiO2 % Potassium (3.6-5.0) mmol/L Carbon Dioxide (21-33) mmol/L Anion Gap (10-20) BUN (7-21) mg/dL Creatinine (0.8-1.5) mg/dl Est GFR ( Amer) Est GFR (Non-Af Amer) POC Glucose (mg/dL) 386 H (65-110) mg/dL Random Glucose (70-110) mg/dL Lactic Acid (0.7-2.1) mmol/L Calcium (8.4-10.5) mg/dL Phosphorus (2.5-4.5) mg/dL Magnesium (1.7-2.2) mg/dL Total Bilirubin (0.2-1.3) mg/dL AST (17-59) U/L ALT (7-56) U/L Alkaline Phosphatase (38-126) U/L Troponin I ng/mL Total Protein (5.8-8.3) g/dL Albumin (3.0-4.8) g/dL Globulin gm/dL Albumin/Globulin Ratio (1.1-1.8) Triglycerides (35-160) mg/dL Cholesterol (130-200) mg/dL LDL Cholesterol Direct (0-129) mg/dL HDL Cholesterol (29-60) mg/dL Arterial Blood Potassium (3.6-5.2) mmol/L Urine Color (YELLOW) Urine Appearance (CLEAR) Urine pH (4.7-8.0) Ur Specific Ernul (1.005-1.035) Urine Protein (<30 mg/dL) mg/dL Urine Glucose (UA) (NEGATIVE) mg/dL Urine Ketones (NEGATIVE) mg/dL Urine Blood (NEGATIVE) Urine Nitrate (NEGATIVE) Urine Bilirubin (NEGATIVE) Urine Urobilinogen (<1 E.U./dL) E.U./dL Ur Leukocyte Esterase (NEGATIVE) Cori/uL Urine Opiates Screen (NEGATIVE) Urine Methadone Screen (NEGATIVE) Ur Barbiturates Screen (NEGATIVE) Ur Phencyclidine Scrn (NEGATIVE) Ur Amphetamines Screen (NEGATIVE) U Benzodiazepines Scrn (NEGATIVE) U Oth Cocaine Metabols (NEGATIVE) U Cannabinoids Screen (NEGATIVE) 10/25/17 10/25/17 10/25/17 Range/Units 00:51 00:25 00:25 WBC (4.5-11.0) 10^3/ul RBC (3.5-6.1) 10^6/uL Hgb (14.0-18.0) g/dL Hct (42.0-52.0) % MCV (80.0-105.0) fl MCH (25.0-35.0) pg MCHC (31.0-37.0) g/dl RDW (11.5-14.5) % Plt Count (120.0-450.0) 10^3/uL MPV (7.0-11.0) fl Gran % (50.0-68.0) % Lymph % (Auto) (22.0-35.0) % [place] % (Auto) (1.0-6.0) % Eos % (Auto) (1.5-5.0) % Baso % (Auto) (0.0-3.0) % Gran # (1.4-6.5) Lymph # (Auto) (1.2-3.4) [place] # (Auto) (0.1-0.6) Eos # (Auto) (0.0-0.7) Baso # (Auto) (0.0-2.0) K/mm3 Neutrophils % (Manual) (50.0-70.0) % Band Neutrophils % (0-2) % Lymphocytes % (Manual) (22.0-35.0) % Monocytes % (Manual) (1.0-6.0) % Platelet Evaluation (NORMAL) PT 12.3 (9.4-12.5) SECONDS INR 1.08 APTT 33.4 (25.1-36.5) Seconds pCO2 (35-45) mm/Hg pO2 (80-100) mm/Hg HCO3 (21-28) mmol/L ABG pH (7.35-7.45) ABG Total CO2 (22-28) mmol.L ABG O2 Saturation (95-98) % ABG Base Excess (-2.0-3.0) mmol/L ABG Potassium (3.6-5.2) mmol/L Sodium 135 (132-148) mmol/L Chloride 97 L (98-107) mmol/L Glucose (75-110) mg/dl Lactate (0.7-2.1) mmol/L FiO2 % Potassium 4.2 (3.6-5.0) mmol/L Carbon Dioxide 19 L (21-33) mmol/L Anion Gap 23 H (10-20) BUN 18 (7-21) mg/dL Creatinine 0.8 (0.8-1.5) mg/dl Est GFR ( Amer) > 60 Est GFR (Non-Af Amer) > 60 POC Glucose (mg/dL) 400 H* (65-110) mg/dL Random Glucose 432 H* (70-110) mg/dL Lactic Acid (0.7-2.1) mmol/L Calcium 9.7 (8.4-10.5) mg/dL Phosphorus (2.5-4.5) mg/dL Magnesium (1.7-2.2) mg/dL Total Bilirubin (0.2-1.3) mg/dL AST (17-59) U/L ALT (7-56) U/L Alkaline Phosphatase (38-126) U/L Troponin I 0.13 H* ng/mL Total Protein (5.8-8.3) g/dL Albumin (3.0-4.8) g/dL Globulin gm/dL Albumin/Globulin Ratio (1.1-1.8) Triglycerides (35-160) mg/dL Cholesterol (130-200) mg/dL LDL Cholesterol Direct (0-129) mg/dL HDL Cholesterol (29-60) mg/dL Arterial Blood Potassium (3.6-5.2) mmol/L Urine Color (YELLOW) Urine Appearance (CLEAR) Urine pH (4.7-8.0) Ur Specific Ernul (1.005-1.035) Urine Protein (<30 mg/dL) mg/dL Urine Glucose (UA) (NEGATIVE) mg/dL Urine Ketones (NEGATIVE) mg/dL Urine Blood (NEGATIVE) Urine Nitrate (NEGATIVE) Urine Bilirubin (NEGATIVE) Urine Urobilinogen (<1 E.U./dL) E.U./dL Ur Leukocyte Esterase (NEGATIVE) Cori/uL Urine Opiates Screen (NEGATIVE) Urine Methadone Screen (NEGATIVE) Ur Barbiturates Screen (NEGATIVE) Ur Phencyclidine Scrn (NEGATIVE) Ur Amphetamines Screen (NEGATIVE) U Benzodiazepines Scrn (NEGATIVE) U Oth Cocaine Metabols (NEGATIVE) U Cannabinoids Screen (NEGATIVE) 10/24/17 10/24/17 10/24/17 Range/Units 23:58 23:11 22:18 WBC (4.5-11.0) 10^3/ul RBC (3.5-6.1) 10^6/uL Hgb (14.0-18.0) g/dL Hct (42.0-52.0) % MCV (80.0-105.0) fl MCH (25.0-35.0) pg MCHC (31.0-37.0) g/dl RDW (11.5-14.5) % Plt Count (120.0-450.0) 10^3/uL MPV (7.0-11.0) fl Gran % (50.0-68.0) % Lymph % (Auto) (22.0-35.0) % [place] % (Auto) (1.0-6.0) % Eos % (Auto) (1.5-5.0) % Baso % (Auto) (0.0-3.0) % Gran # (1.4-6.5) Lymph # (Auto) (1.2-3.4) [place] # (Auto) (0.1-0.6) Eos # (Auto) (0.0-0.7) Baso # (Auto) (0.0-2.0) K/mm3 Neutrophils % (Manual) (50.0-70.0) % Band Neutrophils % (0-2) % Lymphocytes % (Manual) (22.0-35.0) % Monocytes % (Manual) (1.0-6.0) % Platelet Evaluation (NORMAL) PT (9.4-12.5) SECONDS INR APTT (25.1-36.5) Seconds pCO2 (35-45) mm/Hg pO2 (80-100) mm/Hg HCO3 (21-28) mmol/L ABG pH (7.35-7.45) ABG Total CO2 (22-28) mmol.L ABG O2 Saturation (95-98) % ABG Base Excess (-2.0-3.0) mmol/L ABG Potassium (3.6-5.2) mmol/L Sodium (132-148) mmol/L Chloride (98-107) mmol/L Glucose (75-110) mg/dl Lactate (0.7-2.1) mmol/L FiO2 % Potassium (3.6-5.0) mmol/L Carbon Dioxide (21-33) mmol/L Anion Gap (10-20) BUN (7-21) mg/dL Creatinine (0.8-1.5) mg/dl Est GFR ( Amer) Est GFR (Non-Af Amer) POC Glucose (mg/dL) 454 H* 499 H* > 500 H* (65-110) mg/dL Random Glucose (70-110) mg/dL Lactic Acid (0.7-2.1) mmol/L Calcium (8.4-10.5) mg/dL Phosphorus (2.5-4.5) mg/dL Magnesium (1.7-2.2) mg/dL Total Bilirubin (0.2-1.3) mg/dL AST (17-59) U/L ALT (7-56) U/L Alkaline Phosphatase (38-126) U/L Troponin I ng/mL Total Protein (5.8-8.3) g/dL Albumin (3.0-4.8) g/dL Globulin gm/dL Albumin/Globulin Ratio (1.1-1.8) Triglycerides (35-160) mg/dL Cholesterol (130-200) mg/dL LDL Cholesterol Direct (0-129) mg/dL HDL Cholesterol (29-60) mg/dL Arterial Blood Potassium (3.6-5.2) mmol/L Urine Color (YELLOW) Urine Appearance (CLEAR) Urine pH (4.7-8.0) Ur Specific Ernul (1.005-1.035) Urine Protein (<30 mg/dL) mg/dL Urine Glucose (UA) (NEGATIVE) mg/dL Urine Ketones (NEGATIVE) mg/dL Urine Blood (NEGATIVE) Urine Nitrate (NEGATIVE) Urine Bilirubin (NEGATIVE) Urine Urobilinogen (<1 E.U./dL) E.U./dL Ur Leukocyte Esterase (NEGATIVE) Cori/uL Urine Opiates Screen (NEGATIVE) Urine Methadone Screen (NEGATIVE) Ur Barbiturates Screen (NEGATIVE) Ur Phencyclidine Scrn (NEGATIVE) Ur Amphetamines Screen (NEGATIVE) U Benzodiazepines Scrn (NEGATIVE) U Oth Cocaine Metabols (NEGATIVE) U Cannabinoids Screen (NEGATIVE) 10/24/17 10/24/17 10/24/17 Range/Units 21:07 21:07 20:35 WBC (4.5-11.0) 10^3/ul RBC (3.5-6.1) 10^6/uL Hgb (14.0-18.0) g/dL Hct (42.0-52.0) % MCV (80.0-105.0) fl MCH (25.0-35.0) pg MCHC (31.0-37.0) g/dl RDW (11.5-14.5) % Plt Count (120.0-450.0) 10^3/uL MPV (7.0-11.0) fl Gran % (50.0-68.0) % Lymph % (Auto) (22.0-35.0) % [place] % (Auto) (1.0-6.0) % Eos % (Auto) (1.5-5.0) % Baso % (Auto) (0.0-3.0) % Gran # (1.4-6.5) Lymph # (Auto) (1.2-3.4) [place] # (Auto) (0.1-0.6) Eos # (Auto) (0.0-0.7) Baso # (Auto) (0.0-2.0) K/mm3 Neutrophils % (Manual) (50.0-70.0) % Band Neutrophils % (0-2) % Lymphocytes % (Manual) (22.0-35.0) % Monocytes % (Manual) (1.0-6.0) % Platelet Evaluation (NORMAL) PT (9.4-12.5) SECONDS INR APTT (25.1-36.5) Seconds pCO2 (35-45) mm/Hg pO2 (80-100) mm/Hg HCO3 (21-28) mmol/L ABG pH (7.35-7.45) ABG Total CO2 (22-28) mmol.L ABG O2 Saturation (95-98) % ABG Base Excess (-2.0-3.0) mmol/L ABG Potassium (3.6-5.2) mmol/L Sodium (132-148) mmol/L Chloride (98-107) mmol/L Glucose (75-110) mg/dl Lactate (0.7-2.1) mmol/L FiO2 % Potassium (3.6-5.0) mmol/L Carbon Dioxide (21-33) mmol/L Anion Gap (10-20) BUN (7-21) mg/dL Creatinine (0.8-1.5) mg/dl Est GFR ( Amer) Est GFR (Non-Af Amer) POC Glucose (mg/dL) 364 H (65-110) mg/dL Random Glucose (70-110) mg/dL Lactic Acid (0.7-2.1) mmol/L Calcium (8.4-10.5) mg/dL Phosphorus (2.5-4.5) mg/dL Magnesium (1.7-2.2) mg/dL Total Bilirubin (0.2-1.3) mg/dL AST (17-59) U/L ALT (7-56) U/L Alkaline Phosphatase (38-126) U/L Troponin I ng/mL Total Protein (5.8-8.3) g/dL Albumin (3.0-4.8) g/dL Globulin gm/dL Albumin/Globulin Ratio (1.1-1.8) Triglycerides (35-160) mg/dL Cholesterol (130-200) mg/dL LDL Cholesterol Direct (0-129) mg/dL HDL Cholesterol (29-60) mg/dL Arterial Blood Potassium (3.6-5.2) mmol/L Urine Color Yellow (YELLOW) Urine Appearance Clear (CLEAR) Urine pH 6.0 (4.7-8.0) Ur Specific Ernul 1.015 (1.005-1.035) Urine Protein Negative (<30 mg/dL) mg/dL Urine Glucose (UA) >=1000 (NEGATIVE) mg/dL Urine Ketones 40 H (NEGATIVE) mg/dL Urine Blood Negative (NEGATIVE) Urine Nitrate Negative (NEGATIVE) Urine Bilirubin Negative (NEGATIVE) Urine Urobilinogen 0.2 (<1 E.U./dL) E.U./dL Ur Leukocyte Esterase Negative (NEGATIVE) Cori/uL Urine Opiates Screen Positive H (NEGATIVE) Urine Methadone Screen Negative (NEGATIVE) Ur Barbiturates Screen Negative (NEGATIVE) Ur Phencyclidine Scrn Negative (NEGATIVE) Ur Amphetamines Screen Negative (NEGATIVE) U Benzodiazepines Scrn Negative (NEGATIVE) U Oth Cocaine Metabols Negative (NEGATIVE) U Cannabinoids Screen Negative (NEGATIVE) 10/24/17 10/24/17 10/24/17 Range/Units 18:16 17:35 16:47 WBC (4.5-11.0) 10^3/ul RBC (3.5-6.1) 10^6/uL Hgb (14.0-18.0) g/dL Hct (42.0-52.0) % MCV (80.0-105.0) fl MCH (25.0-35.0) pg MCHC (31.0-37.0) g/dl RDW (11.5-14.5) % Plt Count (120.0-450.0) 10^3/uL MPV (7.0-11.0) fl Gran % (50.0-68.0) % Lymph % (Auto) (22.0-35.0) % [place] % (Auto) (1.0-6.0) % Eos % (Auto) (1.5-5.0) % Baso % (Auto) (0.0-3.0) % Gran # (1.4-6.5) Lymph # (Auto) (1.2-3.4) [place] # (Auto) (0.1-0.6) Eos # (Auto) (0.0-0.7) Baso # (Auto) (0.0-2.0) K/mm3 Neutrophils % (Manual) (50.0-70.0) % Band Neutrophils % (0-2) % Lymphocytes % (Manual) (22.0-35.0) % Monocytes % (Manual) (1.0-6.0) % Platelet Evaluation (NORMAL) PT (9.4-12.5) SECONDS INR APTT (25.1-36.5) Seconds pCO2 29 L (35-45) mm/Hg pO2 89.0 (80-100) mm/Hg HCO3 16.8 L (21-28) mmol/L ABG pH 7.37 (7.35-7.45) ABG Total CO2 17.7 L (22-28) mmol.L ABG O2 Saturation 98.1 H (95-98) % ABG Base Excess -7.1 L (-2.0-3.0) mmol/L ABG Potassium 4.3 (3.6-5.2) mmol/L Sodium 129.0 L (132-148) mmol/L Chloride 96.0 L (98-107) mmol/L Glucose 445 H* (75-110) mg/dl Lactate 1.3 (0.7-2.1) mmol/L FiO2 21.0 % Potassium (3.6-5.0) mmol/L Carbon Dioxide (21-33) mmol/L Anion Gap (10-20) BUN (7-21) mg/dL Creatinine (0.8-1.5) mg/dl Est GFR ( Amer) Est GFR (Non-Af Amer) POC Glucose (mg/dL) 401 H* 431 H* (65-110) mg/dL Random Glucose (70-110) mg/dL Lactic Acid (0.7-2.1) mmol/L Calcium (8.4-10.5) mg/dL Phosphorus (2.5-4.5) mg/dL Magnesium (1.7-2.2) mg/dL Total Bilirubin (0.2-1.3) mg/dL AST (17-59) U/L ALT (7-56) U/L Alkaline Phosphatase (38-126) U/L Troponin I ng/mL Total Protein (5.8-8.3) g/dL Albumin (3.0-4.8) g/dL Globulin gm/dL Albumin/Globulin Ratio (1.1-1.8) Triglycerides (35-160) mg/dL Cholesterol (130-200) mg/dL LDL Cholesterol Direct (0-129) mg/dL HDL Cholesterol (29-60) mg/dL Arterial Blood Potassium 4.3 (3.6-5.2) mmol/L Urine Color (YELLOW) Urine Appearance (CLEAR) Urine pH (4.7-8.0) Ur Specific Ernul (1.005-1.035) Urine Protein (<30 mg/dL) mg/dL Urine Glucose (UA) (NEGATIVE) mg/dL Urine Ketones (NEGATIVE) mg/dL Urine Blood (NEGATIVE) Urine Nitrate (NEGATIVE) Urine Bilirubin (NEGATIVE) Urine Urobilinogen (<1 E.U./dL) E.U./dL Ur Leukocyte Esterase (NEGATIVE) Cori/uL Urine Opiates Screen (NEGATIVE) Urine Methadone Screen (NEGATIVE) Ur Barbiturates Screen (NEGATIVE) Ur Phencyclidine Scrn (NEGATIVE) Ur Amphetamines Screen (NEGATIVE) U Benzodiazepines Scrn (NEGATIVE) U Oth Cocaine Metabols (NEGATIVE) U Cannabinoids Screen (NEGATIVE) Laboratory Results - last 24 hr 10/24/17 10/24/17 10/24/17 16:47 17:35 18:16 WBC RBC Hgb Hct MCV MCH MCHC RDW Plt Count MPV Gran % Lymph % (Auto) [place] % (Auto) Eos % (Auto) Baso % (Auto) Gran # Lymph # (Auto) [place] # (Auto) Eos # (Auto) Baso # (Auto) Neutrophils % (Manual) Band Neutrophils % Lymphocytes % (Manual) Monocytes % (Manual) Platelet Evaluation PT INR APTT pCO2 29 L pO2 89.0 HCO3 16.8 L ABG pH 7.37 ABG Total CO2 17.7 L ABG O2 Saturation 98.1 H ABG Base Excess -7.1 L ABG Potassium 4.3 Sodium 129.0 L Chloride 96.0 L Glucose 445 H* Lactate 1.3 FiO2 21.0 Potassium Carbon Dioxide Anion Gap BUN Creatinine Est GFR ( Amer) Est GFR (Non-Af Amer) POC Glucose (mg/dL) 431 H* 401 H* Random Glucose Lactic Acid Calcium Phosphorus Magnesium Total Bilirubin AST ALT Alkaline Phosphatase Troponin I Total Protein Albumin Globulin Albumin/Globulin Ratio Triglycerides Cholesterol LDL Cholesterol Direct HDL Cholesterol Arterial Blood Potassium 4.3 Urine Color Urine Appearance Urine pH Ur Specific Ernul Urine Protein Urine Glucose (UA) Urine Ketones Urine Blood Urine Nitrate Urine Bilirubin Urine Urobilinogen Ur Leukocyte Esterase Urine Opiates Screen Urine Methadone Screen Ur Barbiturates Screen Ur Phencyclidine Scrn Ur Amphetamines Screen U Benzodiazepines Scrn U Oth Cocaine Metabols U Cannabinoids Screen 10/24/17 10/24/17 10/24/17 20:35 21:07 21:07 WBC RBC Hgb Hct MCV MCH MCHC RDW Plt Count MPV Gran % Lymph % (Auto) [place] % (Auto) Eos % (Auto) Baso % (Auto) Gran # Lymph # (Auto) [place] # (Auto) Eos # (Auto) Baso # (Auto) Neutrophils % (Manual) Band Neutrophils % Lymphocytes % (Manual) Monocytes % (Manual) Platelet Evaluation PT INR APTT pCO2 pO2 HCO3 ABG pH ABG Total CO2 ABG O2 Saturation ABG Base Excess ABG Potassium Sodium Chloride Glucose Lactate FiO2 Potassium Carbon Dioxide Anion Gap BUN Creatinine Est GFR ( Amer) Est GFR (Non-Af Amer) POC Glucose (mg/dL) 364 H Random Glucose Lactic Acid Calcium Phosphorus Magnesium Total Bilirubin AST ALT Alkaline Phosphatase Troponin I Total Protein Albumin Globulin Albumin/Globulin Ratio Triglycerides Cholesterol LDL Cholesterol Direct HDL Cholesterol Arterial Blood Potassium Urine Color Yellow Urine Appearance Clear Urine pH 6.0 Ur Specific Ernul 1.015 Urine Protein Negative Urine Glucose (UA) >=1000 Urine Ketones 40 H Urine Blood Negative Urine Nitrate Negative Urine Bilirubin Negative Urine Urobilinogen 0.2 Ur Leukocyte Esterase Negative Urine Opiates Screen Positive H Urine Methadone Screen Negative Ur Barbiturates Screen Negative Ur Phencyclidine Scrn Negative Ur Amphetamines Screen Negative U Benzodiazepines Scrn Negative U Oth Cocaine Metabols Negative U Cannabinoids Screen Negative 10/24/17 10/24/17 10/24/17 22:18 23:11 23:58 WBC RBC Hgb Hct MCV MCH MCHC RDW Plt Count MPV Gran % Lymph % (Auto) [place] % (Auto) Eos % (Auto) Baso % (Auto) Gran # Lymph # (Auto) [place] # (Auto) Eos # (Auto) Baso # (Auto) Neutrophils % (Manual) Band Neutrophils % Lymphocytes % (Manual) Monocytes % (Manual) Platelet Evaluation PT INR APTT pCO2 pO2 HCO3 ABG pH ABG Total CO2 ABG O2 Saturation ABG Base Excess ABG Potassium Sodium Chloride Glucose Lactate FiO2 Potassium Carbon Dioxide Anion Gap BUN Creatinine Est GFR ( Amer) Est GFR (Non-Af Amer) POC Glucose (mg/dL) > 500 H* 499 H* 454 H* Random Glucose Lactic Acid Calcium Phosphorus Magnesium Total Bilirubin AST ALT Alkaline Phosphatase Troponin I Total Protein Albumin Globulin Albumin/Globulin Ratio Triglycerides Cholesterol LDL Cholesterol Direct HDL Cholesterol Arterial Blood Potassium Urine Color Urine Appearance Urine pH Ur Specific Ernul Urine Protein Urine Glucose (UA) Urine Ketones Urine Blood Urine Nitrate Urine Bilirubin Urine Urobilinogen Ur Leukocyte Esterase Urine Opiates Screen Urine Methadone Screen Ur Barbiturates Screen Ur Phencyclidine Scrn Ur Amphetamines Screen U Benzodiazepines Scrn U Oth Cocaine Metabols U Cannabinoids Screen 10/25/17 10/25/17 10/25/17 00:25 00:25 00:51 WBC RBC Hgb Hct MCV MCH MCHC RDW Plt Count MPV Gran % Lymph % (Auto) [place] % (Auto) Eos % (Auto) Baso % (Auto) Gran # Lymph # (Auto) [place] # (Auto) Eos # (Auto) Baso # (Auto) Neutrophils % (Manual) Band Neutrophils % Lymphocytes % (Manual) Monocytes % (Manual) Platelet Evaluation PT 12.3 INR 1.08 APTT 33.4 pCO2 pO2 HCO3 ABG pH ABG Total CO2 ABG O2 Saturation ABG Base Excess ABG Potassium Sodium 135 Chloride 97 L Glucose Lactate FiO2 Potassium 4.2 Carbon Dioxide 19 L Anion Gap 23 H BUN 18 Creatinine 0.8 Est GFR ( Amer) > 60 Est GFR (Non-Af Amer) > 60 POC Glucose (mg/dL) 400 H* Random Glucose 432 H* Lactic Acid Calcium 9.7 Phosphorus Magnesium Total Bilirubin AST ALT Alkaline Phosphatase Troponin I 0.13 H* Total Protein Albumin Globulin Albumin/Globulin Ratio Triglycerides Cholesterol LDL Cholesterol Direct HDL Cholesterol Arterial Blood Potassium Urine Color Urine Appearance Urine pH Ur Specific Ernul Urine Protein Urine Glucose (UA) Urine Ketones Urine Blood Urine Nitrate Urine Bilirubin Urine Urobilinogen Ur Leukocyte Esterase Urine Opiates Screen Urine Methadone Screen Ur Barbiturates Screen Ur Phencyclidine Scrn Ur Amphetamines Screen U Benzodiazepines Scrn U Oth Cocaine Metabols U Cannabinoids Screen 10/25/17 10/25/17 10/25/17 02:04 05:30 05:30 WBC 23.4 H RBC 4.84 Hgb 13.8 L Hct 40.3 L MCV 83.3 MCH 28.5 MCHC 34.2 RDW 14.0 Plt Count 193 MPV 12.6 H Gran % 91.2 H Lymph % (Auto) 7.2 L [place] % (Auto) 1.6 Eos % (Auto) 0.0 L Baso % (Auto) 0.0 Gran # 21.34 H Lymph # (Auto) 1.7 [place] # (Auto) 0.4 Eos # (Auto) 0.0 Baso # (Auto) 0.01 Neutrophils % (Manual) 72 H Band Neutrophils % 7 H Lymphocytes % (Manual) 17 L Monocytes % (Manual) 4 Platelet Evaluation Normal PT 13.7 H INR 1.19 APTT 37.7 H pCO2 pO2 HCO3 ABG pH ABG Total CO2 ABG O2 Saturation ABG Base Excess ABG Potassium Sodium Chloride Glucose Lactate FiO2 Potassium Carbon Dioxide Anion Gap BUN Creatinine Est GFR ( Amer) Est GFR (Non-Af Amer) POC Glucose (mg/dL) 386 H Random Glucose Lactic Acid Calcium Phosphorus Magnesium Total Bilirubin AST ALT Alkaline Phosphatase Troponin I Total Protein Albumin Globulin Albumin/Globulin Ratio Triglycerides Cholesterol LDL Cholesterol Direct HDL Cholesterol Arterial Blood Potassium Urine Color Urine Appearance Urine pH Ur Specific Ernul Urine Protein Urine Glucose (UA) Urine Ketones Urine Blood Urine Nitrate Urine Bilirubin Urine Urobilinogen Ur Leukocyte Esterase Urine Opiates Screen Urine Methadone Screen Ur Barbiturates Screen Ur Phencyclidine Scrn Ur Amphetamines Screen U Benzodiazepines Scrn U Oth Cocaine Metabols U Cannabinoids Screen 10/25/17 10/25/17 10/25/17 05:30 05:30 11:50 WBC RBC Hgb Hct MCV MCH MCHC RDW Plt Count MPV Gran % Lymph % (Auto) [place] % (Auto) Eos % (Auto) Baso % (Auto) Gran # Lymph # (Auto) [place] # (Auto) Eos # (Auto) Baso # (Auto) Neutrophils % (Manual) Band Neutrophils % Lymphocytes % (Manual) Monocytes % (Manual) Platelet Evaluation PT INR APTT pCO2 pO2 HCO3 ABG pH ABG Total CO2 ABG O2 Saturation ABG Base Excess ABG Potassium Sodium 139 Chloride 106 Glucose Lactate FiO2 Potassium 2.8 L* D Carbon Dioxide 16 L Anion Gap 20 BUN 23 H Creatinine 1.1 Est GFR ( Amer) > 60 Est GFR (Non-Af Amer) > 60 POC Glucose (mg/dL) Random Glucose 191 H Lactic Acid 3.8 H Calcium 9.4 Phosphorus 0.6 L* Magnesium 1.6 L Total Bilirubin 1.3 AST 65 H D ALT 30 Alkaline Phosphatase 242 H D Troponin I 0.27 H* D 0.13 H* D Total Protein 5.5 L Albumin 3.3 Globulin 2.3 Albumin/Globulin Ratio 1.4 Triglycerides 140 Cholesterol 141 LDL Cholesterol Direct 94 HDL Cholesterol 23 L Arterial Blood Potassium Urine Color Urine Appearance Urine pH Ur Specific Ernul Urine Protein Urine Glucose (UA) Urine Ketones Urine Blood Urine Nitrate Urine Bilirubin Urine Urobilinogen Ur Leukocyte Esterase Urine Opiates Screen Urine Methadone Screen Ur Barbiturates Screen Ur Phencyclidine Scrn Ur Amphetamines Screen U Benzodiazepines Scrn U Oth Cocaine Metabols U Cannabinoids Screen 10/25/17 10/25/17 10/25/17 13:50 13:50 13:50 WBC 42.3 H* D RBC 4.40 Hgb 12.6 L Hct 36.2 L MCV 82.3 MCH 28.6 MCHC 34.8 RDW 14.2 Plt Count 179 MPV 11.0 Gran % 89.4 H Lymph % (Auto) 3.6 L [place] % (Auto) 6.9 H Eos % (Auto) 0.0 L Baso % (Auto) 0.1 Gran # 37.83 H Lymph # (Auto) 1.5 [place] # (Auto) 2.9 H Eos # (Auto) 0.0 Baso # (Auto) 0.03 Neutrophils % (Manual) Band Neutrophils % Lymphocytes % (Manual) Monocytes % (Manual) Platelet Evaluation PT INR APTT 127.5 H* pCO2 pO2 HCO3 ABG pH ABG Total CO2 ABG O2 Saturation ABG Base Excess ABG Potassium Sodium 138 Chloride 108 H Glucose Lactate FiO2 Potassium 4.4 Carbon Dioxide 16 L Anion Gap 19 BUN 21 Creatinine 0.8 Est GFR ( Amer) > 60 Est GFR (Non-Af Amer) > 60 POC Glucose (mg/dL) Random Glucose 262 H Lactic Acid Calcium 9.0 Phosphorus 2.0 L Magnesium 1.5 L Total Bilirubin AST ALT Alkaline Phosphatase Troponin I 0.12 Total Protein Albumin Globulin Albumin/Globulin Ratio Triglycerides Cholesterol LDL Cholesterol Direct HDL Cholesterol Arterial Blood Potassium Urine Color Urine Appearance Urine pH Ur Specific Ernul Urine Protein Urine Glucose (UA) Urine Ketones Urine Blood Urine Nitrate Urine Bilirubin Urine Urobilinogen Ur Leukocyte Esterase Urine Opiates Screen Urine Methadone Screen Ur Barbiturates Screen Ur Phencyclidine Scrn Ur Amphetamines Screen U Benzodiazepines Scrn U Oth Cocaine Metabols U Cannabinoids Screen EKG/Cardiology Studies: Cardiology / EKG Studies 10/25/17 07:00 EKG [ELECTROCARDIOGRAM] DAILY Comment: Reason For Exam: chest pain f/u Critical Care Progress Note - Nutrition Nutrition: Nutrition Category Date Time Status NPO Diet [DIET] Diets 10/25/17 Breakfast Ordered Addendum Addendum: 10/25/17 15:31 ICU Attending Addendum: Patient seen and examined. Case reviewed on round with housestaff. Agree with resident note above with the following additions/exceptions: 41M with Factor V Leiden (hx of DVTs/PE), L ventricular thrombectomy (2004) HTN, DM, CHF s/p AICD admitted with shock and DKA. Unclear why he was hypotensive. CTA ruled out PE. Will cont heparin for his hypercoag d/o. His INR was subtherpeutic, complaince questionable. He is certainly at risk for cardiogenic shock however I would expect him to be more hypoxic and in resp distress. +TNI were elevated and he is on ASA and heparin. Cardio consulted. Septic shock is more likely given his elevated WBC and lac. SOurce unclear. He has a hx of AICD infection so this may be the case again. For now, on broad abx as well a levophed. Goal SBP > 90 since he usually runs a low BP. Follow up cultures. f/u echo. Will place central line as well given hypotension and muliple IV interventions. For DKA will cont insulin drip with D5 1/2NS trend BMP q4, qhour fingersticks, replete mag phos and K Rest of care as noted above. Tho Wang MD Bridge Welder Critical care time : 45 mins
--- NOTE | 2017-10-25 13:15 | PCM.PROC ---
<Jasmin Sanford - Last Filed: 10/25/17 13:13> Procedures Attestation:: I certify that I have explained the specified Operation(s) or Procedure(s), risks, benefits and reasonable alternatives to the Patient and/or other person responsible. The opportunity was given to ask questions and all questions answered - Central Line Placement Right Internal Jugular Triple Lumen Catheter Aseptic technique was employed throughout the procedure: Hand Hygiene done prior to procedure, Full sterile barriers (mask, hair cover, sterile gown, sterile gloves), Full body sterile drape, Chloraprep Antiseptic: 30 second prep for IJ or SC sites CVP Time Out Performed: Yes Pt. Placed on Pulse Ox Monitor: Yes Central Line Prep: Chlorhexidine-Alcohol Combination Local Anesthesia Used: Lidocaine 1% Amount of Anesthesia Used (mls): 10 Ultrasound Used for Placement: Yes Central Line Lumen Inserted: triple Central Line Length: 16 cm Post Procedure: Sutured in Place, Good Blood Return, All Ports Aspirated, Flushed, Capped, Sterile Dressing Applied Secured by: Suture Post procedure dressing: Clear vapor permeable, Chlorhexidine disc (Biopatch) Post Procedure X-Ray: Yes Patient Tolerated Procedure: Well Immediate Complications: None <Tho Wang - Last Filed: 10/25/17 15:40> Addendum Addendum: 10/25/17 15:40 ICU Supervising Attending: Agree with procedure note above I was present from the start to finish of the entire procedure no complications patient tolerated well Tho Wang MD Spray Foam Installer
[2017-10-25] MEDS: Insulin Regular 100 UNITS in Sodium Chloride 0.9% 99 ML IV PRN (13:33)
--- NOTE | 2017-10-25 13:41 | RAD ---
Date of service: 10/25/2017 HISTORY: S/P TLC insertion COMPARISON: 10/24/2017 FINDINGS: LUNGS: No active pulmonary disease. PLEURA: No significant pleural effusion identified, no pneumothorax apparent. CARDIOVASCULAR: Normal. OSSEOUS STRUCTURES: No significant abnormalities. VISUALIZED UPPER ABDOMEN: Normal. OTHER FINDINGS: Pacemaker IMPRESSION: Right IJ line terminates at the junction of the SVC and right atrium. No pneumothorax
[2017-10-25 14:00] LABS: BASO # 0.03 K/mm3 (0.0-2.0); BASO % 0.1 % (0.0-3.0); GRAN # 37.83 (1.4-6.5); GRAN % 89.4 % (50.0-68.0); HEMOGLOBIN 12.6 g/dL (14.0-18.0); LYMPH # 1.5 (1.2-3.4); LYMPH % 3.6 % (22.0-35.0); MEAN CELL VOLUME 82.3 fl (80.0-105.0); MEAN CORPUSCULAR HEMOGLOBIN 28.6 pg (25.0-35.0); MEAN CORPUSCULAR HGB CONC 34.8 g/dl (31.0-37.0); MONO # 2.9 (0.1-0.6); MONO % 6.9 % (1.0-6.0); RBC 4.4 10^6/uL (3.5-6.1); RED CELL DISTRIBUTION WIDTH 14.2 % (11.5-14.5)
[2017-10-25 14:05] LABS: WHITE BLOOD COUNT 42.3 10^3/ul (4.5-11.0)
[2017-10-25 14:21] LABS: BLOOD UREA NITROGEN 21 mg/dL (7-21); GFR NON-AFRICAN AMERICAN > 60
[2017-10-25 14:30] LABS: TROPONIN I 0.12 ng/mL
--- NOTE | 2017-10-25 16:02 | CP.PCM.PN ---
Subjective - Date & Time of Evaluation Date of Evaluation: 10/25/17 Time of Evaluation: 15:15 - Subjective Subjective: Infectious Disease Follow Up: October 25, 2017 41 yo male with extensive PMHx that includes Factor V Leiden s/p DVTs/PEs/IVC filter/L ventricular thrombectomy (2004) on Coumadin, HTN, DM, CHF s/p AICD placement, [place]ICD replacement 2/2 [place] hardware [place] [facility] [place] psoriatic arthritis, HLD, and splenectomy (2003) who presents with complaint of shortness of breath and left-sided chest pain x3 days. As per patient, he started to feel unwell 3 weeks ago after receiving last Cosentyn injection. He apparently received Bentyl and Prednisone for 5 days with 10 days of Augmentin. No improvement. Had SOB at home and high glucose levels above 400. Claimed poor oral intake. Elevated trop in ER here at [facility] [place]. Question of medication compliance as the patient's pharmacy has several medications listed there that have not been filled in the past year. Tachcardia under control today. Still with episodes of hypotension. Remains on Vancomycin and Cefepime for antibiotic coverage. Cultures are still pending. Objective - Vital Signs/Intake and Output Vital Signs (last 24 hours): Temp Pulse Resp BP Pulse Ox 105.6 F H 72 31 H 83/40 L 100 10/25/17 01:20 10/25/17 15:31 10/25/17 15:00 10/25/17 15:00 10/25/17 15:00 Intake and Output: 10/25/17 10/25/17 06:59 18:59 Intake Total 3101 117 Output Total 875 Balance 2226 117 - Medications Medications: Current Medications Acetaminophen (Tylenol 325mg Tab) 650 mg PO Q6H PRN PRN Reason: Temperature Last Admin: 10/24/17 23:58 Dose: 650 mg Albuterol Sulfate (Albuterol 0.083% Inhal Isha (2.5 Mg/3 Ml) Ud) 2.5 mg INH [id number] PRN PRN Reason: Shortness of Breath Aspirin (Aspirin Chewable) 81 mg PO DAILY [facility] Last Admin: 10/25/17 09:58 Dose: 81 mg Atorvastatin Calcium (Lipitor) 20 mg PO DIN [facility] Last Admin: 10/24/17 23:04 Dose: 20 mg Carvedilol (Coreg) 3.125 mg PO 0800,1800 LA Cefepime HCl (Maxipime 1gm) 1 gm in 100 mls @ 100 mls/hr IVPB Q8 LA PRN Reason: Protocol Last Admin: 10/25/17 13:36 Dose: 100 mls/hr Insulin Human Regular 100 (units/ Sodium Chloride) 100 mls @ 4 mls/hr IV .Q24H PRN; Protocol; 4 UNITS/HR PRN Reason: TITRATE PER MD ORDER Last Titration: 10/25/17 15:41 Dose: 6 units/hr, 6 mls/hr Heparin Sodium/Sodium Chloride (Heparin 10709 Units/250ml 1/2 Normal Saline) 25 ,000 units in 250 mls @ 14.288 mls/hr IV .[id number] LA; 18 UNITS/KG/HR PRN Reason: Protocol Last Titration: 10/25/17 14:22 Dose: 25 units/kg/hr, 19.845 mls/hr Vancomycin HCl (Vancomycin 1gm) 1 gm in 250 mls @ 167 mls/hr IVPB 0600,1800 LA PRN Reason: Protocol Last Admin: 10/25/17 05:15 Dose: 167 mls/hr NOREPINEPHRINE BIT/0.9 % NACL (Levophed 4 Mg/ 250 Ml Ns Premixed) 4 mg in 250 mls @ 15 mls/hr IV .[id number] PRN; Protocol; 4 MCG/MIN PRN Reason: TITRATE PER MD ORDER Last Admin: 10/25/17 08:12 Dose: 4 mcg/min, 15 mls/hr Dextrose/Sodium Chloride (Dextrose 5%/0.45% Ns 1000 Ml) 1,000 mls @ 100 mls/hr IV .Q10H LA Last Admin: 10/25/17 09:28 Dose: 100 mls/hr Pantoprazole Sodium (Protonix Ec Tab) 40 mg PO 0600 LA Last Admin: 10/25/17 06:27 Dose: 40 mg - Labs Labs: 10/25/17 13:50 10/25/17 13:50 PT 13.7 SECONDS (9.4-12.5) H 10/25/17 05:30 INR 1.19 10/25/17 05:30 APTT 127.5 Seconds (25.1-36.5) H* 10/25/17 13:50 - Constitutional Appears: Non-toxic, No Acute Distress - Head Exam Head Exam: ATRAUMATIC, NORMOCEPHALIC - Eye Exam Eye Exam: EOMI, PERRL Pupil Exam: NORMAL ACCOMODATION, PERRL - ENT Exam ENT Exam: Mucous Membranes Moist, Normal External Ear Exam, TM's Normal Bilaterally - Neck Exam Neck Exam: Full ROM, Normal Inspection - Respiratory Exam Respiratory Exam: Chest Wall Tenderness, Clear to Ausculation Bilateral, NORMAL BREATHING PATTERN. absent: Rales, Rhonchi, Wheezes - Cardiovascular Exam Cardiovascular Exam: REGULAR RHYTHM, RRR, +S1, +S2 - GI/Abdominal Exam GI & Abdominal Exam: Soft, Normal Bowel Sounds. absent: Distended, Tenderness - Extremities Exam Extremities Exam: Full ROM, Normal Inspection - Neurological Exam Neurological Exam: Alert, Awake, CN II-XII Intact, Oriented x3 - Psychiatric Exam Psychiatric exam: Flat Affect - Skin Skin Exam: Intact, Normal Color, Warm Assessment and Plan - Assessment and Plan (Free Text) Assessment: 41 yo male with vague complaints of feeling unwell with significant leukocytosis of 29. Extensive PMHx of L ventricular thromboectomy (2003), R Femur fracture repair (2003), IVC filter placement, arthoscopic debridement, synovectomy for right septic knee joint, splenectomy 2003, tonsillectomy 2016, AICD placement, AICD removal and replacement (2/2 infected hardware). The patient with complaints of SOB and left sided chest pain. No specific findings of the Chest X-ray. Supportive care. Continued on Cefepime and IV Vancomycin at this time. If symptoms do not improve or culture results return, may need to consider escalating antibiotic of Cefepime to Meropenem in the next 24-48 hours. Although not tachycardia today, the patient still has hypotensive episodes. Will give a single dose of Gentamicin at this time. Leukocytosis of 43 today. Broad spectrum antibiotics for sepsis of unclear source. Cultures are still pending. Lund cultures. May need further imaging studies with CT scan. CT angio negative for PE. CT abdomen and pelvis was unremarkable. Thank you for allowing me to participate in the care of the patient, we will follow with you.
--- NOTE | 2017-10-25 17:56 | CP.PCM.PN ---
Subjective - Date & Time of Evaluation Date of Evaluation: 10/25/17 Time of Evaluation: 09:30 - Subjective Subjective: Flex Regan PGY1, medicine progress note for Dr Rees. Pt seen and examined this morning in ICU. Pt denies abdominal pain, nausea, or vomiting at this time. Pt reports feeling weak and sweaty. Objective - Vital Signs/Intake and Output Vital Signs (last 24 hours): Temp Pulse Resp BP Pulse Ox 97.9 F 68 18 107/69 100 10/25/17 16:44 10/25/17 16:40 10/25/17 16:40 10/25/17 16:00 10/25/17 16:40 Intake and Output: 10/25/17 10/25/17 06:59 18:59 Intake Total 3101 131 Output Total 875 Balance 2226 131 - Medications Medications: Current Medications Acetaminophen (Tylenol 325mg Tab) 650 mg PO Q6H PRN PRN Reason: Temperature Last Admin: 10/24/17 23:58 Dose: 650 mg Albuterol Sulfate (Albuterol 0.083% Inhal Isha (2.5 Mg/3 Ml) Ud) 2.5 mg INH [id number] PRN PRN Reason: Shortness of Breath Aspirin (Aspirin Chewable) 81 mg PO DAILY LA Last Admin: 10/25/17 09:58 Dose: 81 mg Atorvastatin Calcium (Lipitor) 20 mg PO DIN LA Last Admin: 10/25/17 17:30 Dose: 20 mg Carvedilol (Coreg) 3.125 mg PO 0800,1800 [place] Cefepime HCl (Maxipime 1gm) 1 gm in 100 mls @ 100 mls/hr IVPB Q8 LA PRN Reason: Protocol Last Admin: 10/25/17 13:36 Dose: 100 mls/hr Insulin Human Regular 100 (units/ Sodium Chloride) 100 mls @ 4 mls/hr IV .Q24H PRN; Protocol; 4 UNITS/HR PRN Reason: TITRATE PER MD ORDER Last Titration: 10/25/17 17:36 Dose: 5 units/hr, 5 mls/hr Heparin Sodium/Sodium Chloride (Heparin 90938 Units/250ml 1/2 Normal Saline) 25 ,000 units in 250 mls @ 14.288 mls/hr IV .[id number] LA; 18 UNITS/KG/HR PRN Reason: Protocol Last Titration: 10/25/17 14:22 Dose: 25 units/kg/hr, 19.845 mls/hr Vancomycin HCl (Vancomycin 1gm) 1 gm in 250 mls @ 167 mls/hr IVPB 0600,1800 [facility] PRN Reason: Protocol Last Admin: 10/25/17 17:29 Dose: 167 mls/hr NOREPINEPHRINE BIT/0.9 % NACL (Levophed 4 Mg/ 250 Ml Ns Premixed) 4 mg in 250 mls @ 15 mls/hr IV .[id number] PRN; Protocol; 4 MCG/MIN PRN Reason: TITRATE PER MD ORDER Last Admin: 10/25/17 08:12 Dose: 4 mcg/min, 15 mls/hr Dextrose/Sodium Chloride (Dextrose 5%/0.45% Ns 1000 Ml) 1,000 mls @ 100 mls/hr IV .Q10H [facility] Last Admin: 10/25/17 09:28 Dose: 100 mls/hr Pantoprazole Sodium (Protonix Ec Tab) 40 mg PO 0600 [facility] Last Admin: 10/25/17 06:27 Dose: 40 mg - Labs Labs: 10/25/17 13:50 10/25/17 13:50 PT 13.7 SECONDS (9.4-12.5) H 10/25/17 05:30 INR 1.19 10/25/17 05:30 APTT 127.5 Seconds (25.1-36.5) H* 10/25/17 13:50 - Constitutional Appears: No Acute Distress - Head Exam Head Exam: ATRAUMATIC, NORMOCEPHALIC - Eye Exam Eye Exam: EOMI - ENT Exam ENT Exam: Mucous Membranes Moist - Neck Exam Neck Exam: Full ROM - Respiratory Exam Respiratory Exam: absent: Accessory Muscle Use, Stridor - Cardiovascular Exam Cardiovascular Exam: REGULAR RHYTHM, +S1, +S2. absent: Bradycardia, Tachycardia , JVD - GI/Abdominal Exam GI & Abdominal Exam: Soft. absent: Distended, Firm, Guarding, Rigid, Tenderness , Rebound - Extremities Exam Extremities Exam: Full ROM - Neurological Exam Neurological Exam: Alert, Awake, Oriented x3 - Psychiatric Exam Psychiatric exam: Normal Affect, Normal Mood - Skin Skin Exam: Dry, Normal Color, Warm Assessment and Plan - Assessment and Plan (Free Text) Assessment: Pt is a 41 yo Male with PMH of Factor V Leiden, DVT, PE, HTN, DM, CHF, HLD, and splenectomy who presents with complaint of SOB and left-sided chest pain x3 days. Plan: DKA, Undiagnosed DM - WBC 42, Hgb 12.6 - HA1C 9.3, glucose 260 - hypophosphatemia has resolved, hypokalemia has resolved - Procal 1.91 - UA ketones 40 - ID following, Dr De León - blood, sputum, urine cultures pending - continue cefepime, vanc - keep NPO - PT consulted - C. diff ordered ACS, rule out - trop 0.13, 0.13, 0.27, 0.13, 0.12 Factor V Leiden - Coumadin, on hold - INR 1.19 - continue heparin CHF - cardio consulted, Dr Santoyo - ECHO- waiting for official read Ppx -Protonix -Heparin Pt seen, examined, and assessment/ plan discussed with Dr Rees. Flex Regan PGY1
[2017-10-25 20:38] LABS: BLOOD UREA NITROGEN 18 mg/dL (7-21); CALCIUM 8.7 mg/dL (8.4-10.5); GFR NON-AFRICAN AMERICAN > 60
[2017-10-25 21:20] LABS: TROPONIN I 0.15 ng/mL
[2017-10-25] MEDS: Heparin25000 units/250ml 1/2NS 25,000 UNITS/250 ML BAG IV SCH (21:55)
[2017-10-25] MEDS ORDERED: Norepinephrine 8 MG in Sodium Chloride 0.9% 500 ML IV PRN (22:00)
[2017-10-25] MEDS ORDERED: Morphine 2 mg/ml ISec IVP STA (22:14)
--- NOTE | 2017-10-26 02:31 | CON ---
Copied To: Jasbir Santoyo MD Attending MD: Jasbir Santoyo MD DATE: 10/25/2017 CARDIOLOGY CONSULTATION HISTORY OF PRESENT ILLNESS: The patient is a 41-year-old male who presents with pleuritic like chest pain. His chest pain is increased with deep inspiration. The patient's past medical history is notable for hypercoagulable state. He is status post thrombectomy of the left ventricle with open heart at [facility] years ago. In addition, the patient has had DVTs bilaterally in the past. In addition, the patient had an ICD placed years ago for presumed poor LV function. The status of his coronary arteries are unclear. The patient apparently underwent cardiac catheterization a year and a half ago at [facility]. The results are unclear. In addition, he suffers from hypertension as well as dyspnea. REVIEW OF SYSTEMS: A 14-point review of systems is reviewed in detail. Other than his pleuritic like chest pain, no other cardiac symptomatology noted. PHYSICAL EXAMINATION VITAL SIGNS: Blood pressure is 90 systolic, heart rate is in the 70s, normal sinus rhythm. NECK: Negative JVD. LUNGS: Without rales. HEART: Reveals S1 and S2. EXTREMITIES: Without edema. EKG shows normal sinus rhythm with diffuse ST-T changes. LABORATORY DATA: White count is up to 42,000, hemoglobin is 12.6. Chemistries: BUN and creatinine are within normal limits. Troponins are elevated peaked at 0.27. The PTT is 127 adjusted. IMPRESSION: 1. Hypercoagulable state. 2. [id number] myocardial infarction. 3. High probability for coronary artery disease. 4. Dilated cardiomyopathy with an ejection fraction of 20%-23%. 5. History of left ventricular thrombectomy. 6. History of deep venous thromboses. PLAN: Given these findings, the patient will need a cardiac catheterization. However, given his elevated white count, we will need to wait to rule out an infection before approaching an invasive cardiac procedure. We will need to obtain his cath report at [facility] done a year and a half ago. Jasbir Santoyo MD
[2017-10-26 02:50] LABS: BLOOD UREA NITROGEN 15 mg/dL (7-21); CALCIUM 8.7 mg/dL (8.4-10.5); GFR NON-AFRICAN AMERICAN > 60
[2017-10-26 03:21] LABS: TROPONIN I 0.19 ng/mL
[2017-10-26] MEDS: Cefepime 1gm in NS 100ml 1 GM/100 ML BAG IVPB SCH ×2 (06:59→13:25)
[2017-10-26] MEDS: Pantoprazole 40 mg EC Tab PO SCH (07:00)
[2017-10-26] MEDS: Vancomycin 1gm in NS 250ml 1 GM/250 ML BAG IVPB SCH ×2 (07:00→17:59)
[2017-10-26] MEDS: Heparin25000 units/250ml 1/2NS 25,000 UNITS/250 ML BAG IV SCH (07:01)
[2017-10-26] MEDS: Dextrose 5%/0.45% NS 1,000 ML IV SCH (07:05)
[2017-10-26] MEDS ORDERED: Insulin Detemir 100 units/ml Vial (Levemir) SC ONE (07:58)
[2017-10-26 08:03] LABS: BASO # 0.05 K/mm3 (0.0-2.0); BASO % 0.1 % (0.0-3.0); GRAN # 47.58 (1.4-6.5); HEMOGLOBIN 11.6 g/dL (14.0-18.0); LYMPH # 3.5 (1.2-3.4); LYMPH % 6.3 % (22.0-35.0); MEAN CELL VOLUME 80.6 fl (80.0-105.0); MEAN CORPUSCULAR HEMOGLOBIN 28.4 pg (25.0-35.0); MEAN CORPUSCULAR HGB CONC 35.3 g/dl (31.0-37.0); MEAN PLATELET VOLUME 10.9 fl (7.0-11.0); MONO # 3.6 (0.1-0.6); MONO % 6.6 % (1.0-6.0); RBC 4.08 10^6/uL (3.5-6.1); RED CELL DISTRIBUTION WIDTH 14.4 % (11.5-14.5)
[2017-10-26 08:10] LABS: WHITE BLOOD COUNT 54.8 10^3/ul (4.5-11.0)
[2017-10-26 08:21] LABS: ALB/GLOB RATIO 1.3 (1.1-1.8); ALBUMIN 2.8 g/dL (3.0-4.8); ALT/SGPT 29 U/L (7-56); AST/SGOT 21 U/L (17-59); BLOOD UREA NITROGEN 12 mg/dL (7-21); CALCIUM 8.5 mg/dL (8.4-10.5); GFR NON-AFRICAN AMERICAN > 60
[2017-10-26] MEDS ORDERED: Potassium Phosphate 15 MMOLE in Sodium Chloride 0.9% 250 ML IVPB ONE (08:27)
[2017-10-26] MEDS ORDERED: Magnesium Sulfate 2 gm/50 ml 2 GM/50 ML BAG IVPB ONE (08:28)
--- NOTE | 2017-10-26 09:09 | CARD ---
APPROVED REPORT Date of service: 10/25/2017 EXAM: Two-dimensional and M-mode echocardiogram with Doppler and color Doppler. Other Information Quality : AverageRhythm : INDICATION Chest Pain Congestive Heart Failure CCM, HBP, etc 2D DIMENSIONS Left Atrium (2D)4.6 (1.6-4.0cm)IVSd1.1 (0.7-1.1cm) LVDd6.4 (3.9-5.9cm)PWd1.1 (0.7-1.1cm) LVDs5.7 (2.5-4.0cm)FS (%) 10.9 % LVEF (%)23.0 (>50%) M-Mode DIMENSIONS Aortic Root2.90 (2.2-3.7cm)Aortic Cusp Exc.1.80 (1.5-2.0cm) Aortic Valve AoV Peak Zrmrrgyk388.0cm/s Mitral Valve MV E Qmzpovod062.0cm/sMV A Oastapgs86.0cm/sE/A ratio1.8 TDI E/Lateral E'0.0E/Medial E'0.0 Tricuspid Valve TR Peak [id number]/sRAP [id number] Peak Gr.13mmHg [id number] LEFT VENTRICLE The Left Ventricle is moderately dilated. There is normal left ventricular wall thickness. Left ventricle systolic function is severely impaired. The Ejection Fraction is 20-25%. There is severe global hypokinesis. The apex appears akinetic. There is thickening at the apex, possible thrombus vs. surgical repair (given history of remoteLV thrombectomy) RIGHT VENTRICLE The right ventricle is normal size. There is an ICD lead in the right ventricle. AORTIC VALVE The aortic valve is normal in structure. MITRAL VALVE The mitral valve is normal in structure. Mitral regurgitation is trace. TRICUSPID VALVE The tricuspid valve is normal in structure. There is mild tricuspid regurgitation. PULMONIC VALVE The pulmonary valve is normal in structure. There is moderate pulmonic valvular regurgitation. GREAT VESSELS The aortic root is normal in size. PERICARDIAL EFFUSION There is no pericardial effusion. <Conclusion> The Left Ventricle is moderately dilated. There is normal left ventricular wall thickness. Left ventricle systolic function is severely impaired. The Ejection Fraction is 20-25%. There is severe global hypokinesis. The apex appears akinetic. There is thickening at the apex, possible thrombus vs. surgical repair (given history of remoteLV thrombectomy). There is mild tricuspid regurgitation. There is moderate pulmonic valvular regurgitation.
[2017-10-26] MEDS: Lidocaine 5% Patch TD SCH (10:41)
[2017-10-26] MEDS: DOBUTamine 500mg/250ml D5W 500 MG/250 ML BAG IV PRN (10:41)
[2017-10-26] MEDS: Insulin Reg-HIGH-Coverage SC SCH ×2 (11:37→16:36)
--- NOTE | 2017-10-26 13:52 | PN ---
Copied To: Jasbir Santoyo MD Attending MD: Jasbir Santoyo MD DATE: 10/26/2017 CARDIOLOGY FOLLOWUP SUBJECTIVE: The patient is comfortable in bed. No shortness of breath noted. OBJECTIVE: VITAL SIGNS: Stable. NECK: Negative JVD. LUNGS: Decreased breath sounds. HEART: Reveal S1, S2. EXTREMITIES: Without edema. LABORATORY DATA: His white count is up to 54,000. Chemistries: BUN and creatinine are unremarkable. Echocardiogram reveals decreased LV function with an EF of 23%. IMPRESSION: 1. Dilated cardiomyopathy. 2. Status post implantable cardioverter-defibrillator placement. 3. History of thrombectomy of the left ventricle years ago. 4. High probability for coronary artery disease. 5. Non-ST elevation myocardial infarction. 6. History of deep venous thrombosis. Given these findings, the report from [facility] should be arriving today of his previous catheterization. No intervention at this time until sepsis and the cause of his elevated white count is elucidated. Jasbir Santoyo MD
--- NOTE | 2017-10-26 16:21 | CP.PCM.PN ---
<Flex Regan - Last Filed: 10/26/17 16:17> Subjective - Date & Time of Evaluation Date of Evaluation: 10/26/17 Time of Evaluation: 09:30 - Subjective Subjective: Pt seen and examined at bedside in the ICU. Pt reporting mild upper back pain at this time. Objective - Vital Signs/Intake and Output Vital Signs (last 24 hours): Temp Pulse Resp BP Pulse Ox 98.3 F 86 16 102/45 L 99 10/26/17 08:00 10/26/17 14:00 10/26/17 13:53 10/26/17 14:00 10/26/17 10:30 Intake and Output: 10/26/17 10/26/17 06:59 18:59 Intake Total 2051 58 Output Total 300 Balance 1751 58 - Medications Medications: Current Medications Acetaminophen (Tylenol 325mg Tab) 650 mg PO Q6H PRN PRN Reason: Temperature Last Admin: 10/25/17 18:18 Dose: 650 mg Albuterol Sulfate (Albuterol 0.083% Inhal Isha (2.5 Mg/3 Ml) Ud) 2.5 mg INH [id number] PRN PRN Reason: Shortness of Breath Aspirin (Aspirin Chewable) 81 mg PO DAILY LA Last Admin: 10/26/17 10:41 Dose: 81 mg Atorvastatin Calcium (Lipitor) 20 mg PO DIN LA Last Admin: 10/25/17 17:30 Dose: 20 mg Carvedilol (Coreg) 3.125 mg PO 0800,1800 [place] Heparin Sodium/Sodium Chloride (Heparin 29414 Units/250ml 1/2 Normal Saline) 25 ,000 units in 250 mls @ 14.288 mls/hr IV .[id number] LA; 18 UNITS/KG/HR PRN Reason: Protocol Last Admin: 10/26/17 07:01 Dose: 23 units/kg/hr, 18.257 mls/hr Vancomycin HCl (Vancomycin 1gm) 1 gm in 250 mls @ 167 mls/hr IVPB 0600,1800 [place] PRN Reason: Protocol Last Admin: 10/26/17 07:00 Dose: 167 mls/hr Norepinephrine Bitartrate 8 mg (/ Sodium Chloride) 508 mls @ 15.24 mls/hr IV .Q24H PRN; Protocol; 4 MCG/MIN PRN Reason: TITRATE PER MD ORDER Last Titration: 10/26/17 09:00 Dose: 0 mcg/min, 0 mls/hr Dobutamine HCl/Dextrose (Dobutamine/Dextrose 5% 500mg/250ml) 500 mg in 250 mls @ 4.714 mls/hr IV .Q24H PRN; Protocol; 2 MCG/KG/MIN PRN Reason: TITRATE PER PROTOCOL Last Admin: 10/26/17 10:41 Dose: 2 mcg/kg/min, 4.714 mls/hr Ceftriaxone Sodium (Rocephin 1 Gram Ivpb) 1 gm in 100 mls @ 100 mls/hr IVPB DAILY LA PRN Reason: Protocol Insulin Human Regular (Humulin R High) 0 units SC ACHS LA PRN Reason: Protocol Last Admin: 10/26/17 11:37 Dose: Not Given Lidocaine (Lidoderm) 1 ea TD DAILY LA Last Admin: 10/26/17 10:41 Dose: 1 ea Pantoprazole Sodium (Protonix Ec Tab) 40 mg PO 0600 [place] Last Admin: 10/26/17 07:00 Dose: 40 mg - Labs Labs: 10/26/17 07:58 10/26/17 07:58 PT 13.7 SECONDS (9.4-12.5) H 10/25/17 05:30 INR 1.19 10/25/17 05:30 APTT 61.5 Seconds (25.1-36.5) H 10/26/17 07:58 Assessment and Plan - Assessment and Plan (Free Text) Assessment: Pt is a 41 yo Male with PMH of Factor V Leiden, DVT, PE, HTN, DM, CHF, HLD, and splenectomy who presents with complaint of SOB and left-sided chest pain x3 days. Plan: DKA - HA1C 9.3 - glucose 160, improving - anion gap, closed - keep NPO - continue to monitor Persistent Leukocytosis, unknown source - WBC 54, increased since yesterday - blood cultures- GPC - ceftriaxone started - continue vanc - ID following, Dr De León CHF - ECHO: EF=23%, severe global hypokinesis - report from [facility] is being obtained concerning his prior catheterization - cardio following, Dr Santoyo, no intervention until elevated WBC is determined Factor V Leiden - Coumadin, on hold, INR 1.19 - continue heparin Ppx -Protonix -Heparin Pt seen, examined, assessment and plan discussed with Dr Guerra. Flex Regan PGY1 <Jason Guerra - Last Filed: 10/29/17 06:16> Objective - Vital Signs/Intake and Output Vital Signs (last 24 hours): Temp Pulse Resp BP Pulse Ox 97.7 F 91 H 18 140/99 H 98 10/29/17 00:00 10/29/17 02:00 10/29/17 00:00 10/29/17 00:00 10/29/17 00:00 Intake and Output: 10/28/17 10/29/17 18:59 06:59 Intake Total 1059 1210 Output Total 500 Balance 559 1210 - Medications Medications: Current Medications Acetaminophen (Tylenol 325mg Tab) 650 mg PO Q6H PRN PRN Reason: Temperature Last Admin: 10/25/17 18:18 Dose: 650 mg Albuterol Sulfate (Albuterol 0.083% Inhal Isha (2.5 Mg/3 Ml) Ud) 2.5 mg INH [id number] PRN PRN Reason: Shortness of Breath Aspirin (Aspirin Chewable) 81 mg PO DAILY [facility] Last Admin: 10/28/17 09:13 Dose: 81 mg Atorvastatin Calcium (Lipitor) 20 mg PO DIN LA Last Admin: 10/28/17 17:49 Dose: 20 mg Carvedilol (Coreg) 3.125 mg PO 0800,1800 [place] Cyclobenzaprine HCl (Flexeril) 5 mg PO TID PRN PRN Reason: Pain, severe (8-10) Last Admin: 10/28/17 08:19 Dose: 5 mg Hydromorphone HCl (Dilaudid) 1 mg IVP Q4H PRN PRN Reason: Pain, severe (8-10) Last Admin: 10/29/17 02:48 Dose: 1 mg Heparin Sodium/Sodium Chloride (Heparin 68718 Units/250ml 1/2 Normal Saline) 25 ,000 units in 250 mls @ 14.288 mls/hr IV .[id number] LA; 18 UNITS/KG/HR PRN Reason: Protocol Last Admin: 10/29/17 00:03 Dose: 25 units/kg/hr, 19.845 mls/hr Norepinephrine Bitartrate 8 mg (/ Sodium Chloride) 508 mls @ 15.24 mls/hr IV .Q24H PRN; Protocol; 4 MCG/MIN PRN Reason: TITRATE PER MD ORDER Last Titration: 10/26/17 09:00 Dose: 0 mcg/min, 0 mls/hr Dobutamine HCl/Dextrose (Dobutamine/Dextrose 5% 500mg/250ml) 500 mg in 250 mls @ 4.714 mls/hr IV .Q24H PRN; Protocol; 2 MCG/KG/MIN PRN Reason: TITRATE PER PROTOCOL Last Admin: 10/28/17 10:11 Dose: 2 mcg/kg/min, 4.714 mls/hr Ceftriaxone Sodium (Rocephin 1 Gram Ivpb) 1 gm in 100 mls @ 100 mls/hr IVPB DAILY [facility] PRN Reason: Protocol Last Admin: 10/28/17 09:26 Dose: 100 mls/hr Insulin Detemir (Levemir) 40 unit SC HS [facility] Last Admin: 10/28/17 21:46 Dose: 40 units Insulin Human Lispro (Humalog Low) 0 units SC ACHS [facility] PRN Reason: Protocol Last Admin: 10/28/17 22:01 Dose: 2 units Insulin Lispro Protam/Lispro Human (Humalog Mix 75/25) 20 units SC ACB [facility] Last Admin: 10/28/17 08:13 Dose: 20 units Insulin Lispro Protam/Lispro Human (Humalog Mix 75/25) 16 units SC ACD [facility] Last Admin: 10/28/17 16:05 Dose: 16 units Lidocaine (Lidoderm) 1 ea TD DAILY [facility] Last Admin: 10/28/17 09:14 Dose: 1 ea Oxycodone/Acetaminophen (Percocet 5/325 Mg Tab) 1 tab PO Q6H PRN PRN Reason: Pain, moderate (4-7) Stop: 10/29/17 19:57 Last Admin: 10/28/17 12:13 Dose: 1 tab Pantoprazole Sodium (Protonix Ec Tab) 40 mg PO 0600 [facility] Last Admin: 10/29/17 05:26 Dose: 40 mg Vancomycin HCl (Vancocin 25 Mg/Ml (Oral Use)) 250 mg PO QID LA PRN Reason: Protocol Last Admin: 10/28/17 22:03 Dose: 250 mg - Labs Labs: 10/28/17 05:00 10/28/17 05:00 PT 12.7 SECONDS (9.4-12.5) H 10/28/17 05:00 INR 1.10 10/28/17 05:00 APTT 56.3 Seconds (25.1-36.5) H 10/28/17 05:00 Attending/Attestation - Attestation I have personally seen and examined this patient.: Yes I have fully participated in the care of the patient.: Yes I have reviewed all pertinent clinical information, including history, physical exam and plan: Yes
[2017-10-26 16:36] LABS: BASO # 0.06 K/mm3 (0.0-2.0); BASO % 0.1 % (0.0-3.0); GRAN # 49.97 (1.4-6.5); HEMOGLOBIN 11.6 g/dL (14.0-18.0); LYMPH # 3.6 (1.2-3.4); LYMPH % 6.4 % (22.0-35.0); MEAN CELL VOLUME 81.2 fl (80.0-105.0); MEAN CORPUSCULAR HEMOGLOBIN 28.6 pg (25.0-35.0); MEAN CORPUSCULAR HGB CONC 35.3 g/dl (31.0-37.0); MEAN PLATELET VOLUME 11.9 fl (7.0-11.0); MONO # 3.1 (0.1-0.6); MONO % 5.5 % (1.0-6.0); RBC 4.05 10^6/uL (3.5-6.1); RED CELL DISTRIBUTION WIDTH 14.6 % (11.5-14.5)
[2017-10-26] MEDS: cefTRIAXone 1 gm 1 GM/100 ML BAG IVPB SCH (16:36)
[2017-10-26 16:44] LABS: WHITE BLOOD COUNT 56.8 10^3/ul (4.5-11.0)
[2017-10-26 16:45] LABS: BLOOD UREA NITROGEN 12 mg/dL (7-21); CALCIUM 8.3 mg/dL (8.4-10.5); GFR NON-AFRICAN AMERICAN > 60
--- NOTE | 2017-10-26 18:05 | CP.PCM.CON ---
History of Present Illness - History of Present Illness History of Present Illness: 41 year old male patient with history of Factor V Leiden s/p DVTs/PEs/IVC filter /L ventricular thrombectomy (2004) on Coumadin (noncompliant), HTN, DM, CHF s/p AICD placement, AICD replacement 2/2 [place] [facility] [place] psoriatic arthritis, HLD, and splenectomy (2003) who was admitted for shortness of breath and chest pain, found to have gram + cocci bacteremia. Hematology consulted for evaluation of leukocytosis. Patient states that prior to his admission he was having fevers/chills x 5 days. He complained of nausea, vomiting, and mild diarrhea which have all improved since his admission. He denies any night sweats, weight loss, or other complaints. States that currently he's having back pain with deep inspiration. 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 absent: Excessive Sweating, Increased Appetite, Weight Loss - EENT Eyes: As Per HPI. absent: Blurred Vision, Decreased Night Vision, Dry Eye, Itchy Eyes, Loss of Peripheral Vision, Photophobia, Requires Corrective Lenses Ears: As Per HPI Nose/Mouth/Throat: absent: Epistaxis, Nasal Congestion, Nasal Discharge, Nasal Obstruction, Nasal Trauma - Cardiovascular Cardiovascular: Chest Pain at Rest, Dyspnea, Dyspnea on Exertion, Palpitations. absent: Chest Pain, Edema, Irregular Heart Rhythm - Respiratory Respiratory: Cough, Wheezing, Pain on Inspiration, Pain with Coughing - Gastrointestinal Gastrointestinal: absent: Abdominal Pain, Belching, Diarrhea, Dyspepsia, Dysphagia, Melena, Nausea - Genitourinary Genitourinary: absent: Dysuria, Flank Pain, Hematuria, Urinary Incontinence, Urinary Frequency, Urinary Hesitance - Reproductive: Male Reproductive:Male: As Per HPI - Musculoskeletal Musculoskeletal: Back Pain. absent: Abnormal Gait, Arthralgias, Atrophy, Deformity - Neurological Neurological: As Per HPI - Psychiatric Psychiatric: As Per HPI - Endocrine Endocrine: Fatigue, Polydipsia, Polyuria - Hematologic/Lymphatic Hematologic: absent: Easy Bleeding, Easy Bruising, Lymphadenopathy Past Patient History - Infectious Disease Hx of Infectious Diseases: None - Tetanus Immunizations Tetanus Immunization: Up to Date (3 years ago) - Past Medical History & Family History Past Medical History?: Yes - Past Social History Smoking Status: Current Some Days Smoker - CARDIAC Hx Cardiac Disorders: Yes Hx Congestive Heart Failure: Yes Other/Comment: open heart to left ventricle to remove blood clot, dvt/ivc filter , multiple pe and dvt's, 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 - MUSCULOSKELETAL/RHEUMATOLOGICAL Hx Musculoskeletal Disorders: Yes Hx Falls: No Hx Fractures: Yes (FEMORAL FX ORIF REMOVAL OF HARDWARE) Hx Unsteady Gait: Yes Other/Comment: right orif and hardware removal - GASTROINTESTINAL Hx Gastrointestinal Disorders: Yes Hx Gastroesophageal Reflux: Yes - GENITOURINARY/GYNECOLOGICAL Hx Genitourinary Disorders: Yes Other/Comment: ERECTILE DYSFUNCTION/penile implant - PSYCHIATRIC Hx Psychophysiologic Disorder: No - SURGICAL HISTORY Other/Comment: Femur fracture right 2003,DVT IVC FILTER,OPEN HEART SURGERY-CLOT REMOVAL FOR L VENTRICLE 2004, arthoscopic debridement, synovectomy sx for right septic knee joint and left arm picc line insertion, 09/15/2015, splenectomy 2004 , tonsillectomy 13 days ago at [facility], difibrillator implaint 2017 - ANESTHESIA Hx Anesthesia: Yes Hx Anesthesia Reactions: No Hx Malignant Hyperthermia: No Meds Allergies/Adverse Reactions: Allergies Allergy/AdvReac Type Severity Reaction Status Date / Time No Known Allergies Allergy Verified 04/01/17 18:49 - Medications Medications: Current Medications Acetaminophen (Tylenol 325mg Tab) 650 mg PO Q6H PRN PRN Reason: Temperature Last Admin: 10/25/17 18:18 Dose: 650 mg Albuterol Sulfate (Albuterol 0.083% Inhal Isha (2.5 Mg/3 Ml) Ud) 2.5 mg INH [id number] PRN PRN Reason: Shortness of Breath Aspirin (Aspirin Chewable) 81 mg PO DAILY LA Last Admin: 10/26/17 10:41 Dose: 81 mg Atorvastatin Calcium (Lipitor) 20 mg PO DIN LA Last Admin: 10/26/17 16:35 Dose: 20 mg Carvedilol (Coreg) 3.125 mg PO 0800,1800 LA Heparin Sodium/Sodium Chloride (Heparin 78602 Units/250ml 1/2 Normal Saline) 25 ,000 units in 250 mls @ 14.288 mls/hr IV .[id number] LA; 18 UNITS/KG/HR PRN Reason: Protocol Last Admin: 10/26/17 07:01 Dose: 23 units/kg/hr, 18.257 mls/hr Vancomycin HCl (Vancomycin 1gm) 1 gm in 250 mls @ 167 mls/hr IVPB 0600,1800 LA PRN Reason: Protocol Last Admin: 10/26/17 07:00 Dose: 167 mls/hr Norepinephrine Bitartrate 8 mg (/ Sodium Chloride) 508 mls @ 15.24 mls/hr IV .Q24H PRN; Protocol; 4 MCG/MIN PRN Reason: TITRATE PER MD ORDER Last Titration: 10/26/17 09:00 Dose: 0 mcg/min, 0 mls/hr Dobutamine HCl/Dextrose (Dobutamine/Dextrose 5% 500mg/250ml) 500 mg in 250 mls @ 4.714 mls/hr IV .Q24H PRN; Protocol; 2 MCG/KG/MIN PRN Reason: TITRATE PER PROTOCOL Last Admin: 10/26/17 10:41 Dose: 2 mcg/kg/min, 4.714 mls/hr Ceftriaxone Sodium (Rocephin 1 Gram Ivpb) 1 gm in 100 mls @ 100 mls/hr IVPB DAILY LA PRN Reason: Protocol Last Admin: 10/26/17 16:36 Dose: 100 mls/hr Insulin Detemir (Levemir) 40 unit SC HS LA Insulin Human Regular (Humulin R High) 0 units SC ACHS LA PRN Reason: Protocol Last Admin: 10/26/17 16:36 Dose: 7 units Lidocaine (Lidoderm) 1 ea TD DAILY LA Last Admin: 10/26/17 10:41 Dose: 1 ea Pantoprazole Sodium (Protonix Ec Tab) 40 mg PO 0600 LA Last Admin: 10/26/17 07:00 Dose: 40 mg Physical Exam - Constitutional Appears: No Acute Distress, Unkempt - Head Exam Head Exam: ATRAUMATIC, NORMAL INSPECTION - Eye Exam Eye Exam: Normal appearance, PERRL Pupil Exam: PERRL - ENT Exam ENT Exam: Mucous Membranes Moist, Normal Exam Additional comments: right neck triple lumen in place, dressing c/d/i - Respiratory Exam Respiratory Exam: Decreased Breath Sounds, Rales. absent: Accessory Muscle Use Additional comments: rales over right lower lung field. - Cardiovascular Exam Cardiovascular Exam: REGULAR RHYTHM, +S1, +S2 - GI/Abdominal Exam GI & Abdominal Exam: Normal Bowel Sounds - Rectal Exam Rectal Exam: Deferred - Extremities Exam Extremities exam: Positive for: full ROM, normal inspection - Back Exam Back exam: NORMAL INSPECTION - Psychiatric Exam Psychiatric exam: Normal Mood - Skin Skin Exam: Dry, Warm Results - Vital Signs Recent Vital Signs: Last Vital Signs Temp 98.3 F 10/26/17 08:00 Pulse 90 10/26/17 17:00 Resp 18 10/26/17 16:50 BP 135/81 10/26/17 17:00 Pulse Ox 98 10/26/17 16:50 - Labs Result Diagrams: 10/26/17 16:25 10/26/17 16:25 Labs: Laboratory Results - last 24 hr 10/25/17 10/25/17 10/25/17 03:06 03:54 04:53 WBC RBC Hgb Hct MCV MCH MCHC RDW Plt Count MPV Gran % Lymph % (Auto) [place] % (Auto) Eos % (Auto) Baso % (Auto) Gran # Lymph # (Auto) [place] # (Auto) Eos # (Auto) Baso # (Auto) APTT Sodium Potassium Chloride Carbon Dioxide Anion Gap BUN Creatinine Est GFR ( Amer) Est GFR (Non-Af Amer) POC Glucose (mg/dL) 295 H 251 H 226 H Random Glucose Lactic Acid Calcium Phosphorus Magnesium Total Bilirubin AST ALT Alkaline Phosphatase Troponin I Total Protein Albumin Globulin Albumin/Globulin Ratio 10/25/17 10/25/17 10/25/17 05:59 07:06 07:42 WBC RBC Hgb Hct MCV MCH MCHC RDW Plt Count MPV Gran % Lymph % (Auto) [place] % (Auto) Eos % (Auto) Baso % (Auto) Gran # Lymph # (Auto) [place] # (Auto) Eos # (Auto) Baso # (Auto) APTT Sodium Potassium Chloride Carbon Dioxide Anion Gap BUN Creatinine Est GFR ( Amer) Est GFR (Non-Af Amer) POC Glucose (mg/dL) 173 H 169 H 145 H Random Glucose Lactic Acid Calcium Phosphorus Magnesium Total Bilirubin AST ALT Alkaline Phosphatase Troponin I Total Protein Albumin Globulin Albumin/Globulin Ratio 10/25/17 10/25/17 10/25/17 09:46 11:02 13:27 WBC RBC Hgb Hct MCV MCH MCHC RDW Plt Count MPV Gran % Lymph % (Auto) [place] % (Auto) Eos % (Auto) Baso % (Auto) Gran # Lymph # (Auto) [place] # (Auto) Eos # (Auto) Baso # (Auto) APTT Sodium Potassium Chloride Carbon Dioxide Anion Gap BUN Creatinine Est GFR ( Amer) Est GFR (Non-Af Amer) POC Glucose (mg/dL) 163 H 196 H 252 H Random Glucose Lactic Acid Calcium Phosphorus Magnesium Total Bilirubin AST ALT Alkaline Phosphatase Troponin I Total Protein Albumin Globulin Albumin/Globulin Ratio 10/25/17 10/25/17 10/25/17 16:14 17:26 18:18 WBC RBC Hgb Hct MCV MCH MCHC RDW Plt Count MPV Gran % Lymph % (Auto) [place] % (Auto) Eos % (Auto) Baso % (Auto) Gran # Lymph # (Auto) [place] # (Auto) Eos # (Auto) Baso # (Auto) APTT Sodium Potassium Chloride Carbon Dioxide Anion Gap BUN Creatinine Est GFR ( Amer) Est GFR (Non-Af Amer) POC Glucose (mg/dL) 303 H 257 H 249 H Random Glucose Lactic Acid Calcium Phosphorus Magnesium Total Bilirubin AST ALT Alkaline Phosphatase Troponin I Total Protein Albumin Globulin Albumin/Globulin Ratio 10/25/17 10/25/17 10/25/17 18:53 20:02 20:22 WBC RBC Hgb Hct MCV MCH MCHC RDW Plt Count MPV Gran % Lymph % (Auto) [place] % (Auto) Eos % (Auto) Baso % (Auto) Gran # Lymph # (Auto) [place] # (Auto) Eos # (Auto) Baso # (Auto) APTT Sodium 141 Potassium 3.9 Chloride 110 H Carbon Dioxide 17 L Anion Gap 18 BUN 18 Creatinine 0.7 L Est GFR ( Amer) > 60 Est GFR (Non-Af Amer) > 60 POC Glucose (mg/dL) 247 H 239 H Random Glucose 228 H Lactic Acid Calcium 8.7 Phosphorus Magnesium Total Bilirubin AST ALT Alkaline Phosphatase Troponin I 0.15 H* D Total Protein Albumin Globulin Albumin/Globulin Ratio 10/25/17 10/25/17 10/25/17 20:22 21:00 22:18 WBC RBC Hgb Hct MCV MCH MCHC RDW Plt Count MPV Gran % Lymph % (Auto) [place] % (Auto) Eos % (Auto) Baso % (Auto) Gran # Lymph # (Auto) [place] # (Auto) Eos # (Auto) Baso # (Auto) APTT 85.3 H Sodium Potassium Chloride Carbon Dioxide Anion Gap BUN Creatinine Est GFR ( Amer) Est GFR (Non-Af Amer) POC Glucose (mg/dL) 231 H 230 H Random Glucose Lactic Acid Calcium Phosphorus Magnesium Total Bilirubin AST ALT Alkaline Phosphatase Troponin I Total Protein Albumin Globulin Albumin/Globulin Ratio 10/25/17 10/26/17 10/26/17 23:18 00:02 00:58 WBC RBC Hgb Hct MCV MCH MCHC RDW Plt Count MPV Gran % Lymph % (Auto) [place] % (Auto) Eos % (Auto) Baso % (Auto) Gran # Lymph # (Auto) [place] # (Auto) Eos # (Auto) Baso # (Auto) APTT Sodium Potassium Chloride Carbon Dioxide Anion Gap BUN Creatinine Est GFR ( Amer) Est GFR (Non-Af Amer) POC Glucose (mg/dL) 212 H 207 H 191 H Random Glucose Lactic Acid Calcium Phosphorus Magnesium Total Bilirubin AST ALT Alkaline Phosphatase Troponin I Total Protein Albumin Globulin Albumin/Globulin Ratio 10/26/17 10/26/17 10/26/17 02:10 02:10 03:33 WBC RBC Hgb Hct MCV MCH MCHC RDW Plt Count MPV Gran % Lymph % (Auto) [place] % (Auto) Eos % (Auto) Baso % (Auto) Gran # Lymph # (Auto) [place] # (Auto) Eos # (Auto) Baso # (Auto) APTT 66.2 H Sodium 142 Potassium 3.7 Chloride 110 H Carbon Dioxide 20 L Anion Gap 16 BUN 15 Creatinine 0.6 L Est GFR ( Amer) > 60 Est GFR (Non-Af Amer) > 60 POC Glucose (mg/dL) 181 H Random Glucose 181 H Lactic Acid Calcium 8.7 Phosphorus Magnesium Total Bilirubin AST ALT Alkaline Phosphatase Troponin I 0.19 H* D Total Protein Albumin Globulin Albumin/Globulin Ratio 10/26/17 10/26/17 10/26/17 03:43 05:13 06:17 WBC RBC Hgb Hct MCV MCH MCHC RDW Plt Count MPV Gran % Lymph % (Auto) [place] % (Auto) Eos % (Auto) Baso % (Auto) Gran # Lymph # (Auto) [place] # (Auto) Eos # (Auto) Baso # (Auto) APTT Sodium Potassium Chloride Carbon Dioxide Anion Gap BUN Creatinine Est GFR ( Amer) Est GFR (Non-Af Amer) POC Glucose (mg/dL) 175 H 184 H 146 H Random Glucose Lactic Acid Calcium Phosphorus Magnesium Total Bilirubin AST ALT Alkaline Phosphatase Troponin I Total Protein Albumin Globulin Albumin/Globulin Ratio 10/26/17 10/26/17 10/26/17 07:50 07:58 07:58 WBC RBC Hgb Hct MCV MCH MCHC RDW Plt Count MPV Gran % Lymph % (Auto) [place] % (Auto) Eos % (Auto) Baso % (Auto) Gran # Lymph # (Auto) [place] # (Auto) Eos # (Auto) Baso # (Auto) APTT 61.5 H Sodium 143 Potassium 3.5 L Chloride 111 H Carbon Dioxide 20 L Anion Gap 15 BUN 12 Creatinine 0.6 L Est GFR ( Amer) > 60 Est GFR (Non-Af Amer) > 60 POC Glucose (mg/dL) 151 H Random Glucose 160 H Lactic Acid Calcium 8.5 Phosphorus 1.2 L* Magnesium 1.6 L Total Bilirubin 0.6 AST 21 ALT 29 Alkaline Phosphatase 135 H D Troponin I Total Protein 4.9 L Albumin 2.8 L Globulin 2.2 Albumin/Globulin Ratio 1.3 10/26/17 10/26/17 10/26/17 07:58 09:07 09:30 WBC 54.8 H* D RBC 4.08 Hgb 11.6 L Hct 32.9 L MCV 80.6 MCH 28.4 MCHC 35.3 RDW 14.4 Plt Count 165 MPV 10.9 Gran % 87.0 H Lymph % (Auto) 6.3 L [place] % (Auto) 6.6 H Eos % (Auto) 0.0 L Baso % (Auto) 0.1 Gran # 47.58 H Lymph # (Auto) 3.5 H [place] # (Auto) 3.6 H Eos # (Auto) 0.0 Baso # (Auto) 0.05 APTT Sodium Potassium Chloride Carbon Dioxide Anion Gap BUN Creatinine Est GFR ( Amer) Est GFR (Non-Af Amer) POC Glucose (mg/dL) 153 H Random Glucose Lactic Acid 1.5 Calcium Phosphorus Magnesium Total Bilirubin AST ALT Alkaline Phosphatase Troponin I Total Protein Albumin Globulin Albumin/Globulin Ratio 10/26/17 10/26/17 10/26/17 11:01 16:25 16:25 WBC 56.8 H* RBC 4.05 Hgb 11.6 L Hct 32.9 L MCV 81.2 MCH 28.6 MCHC 35.3 RDW 14.6 H Plt Count 178 MPV 11.9 H Gran % 88.0 H Lymph % (Auto) 6.4 L [place] % (Auto) 5.5 Eos % (Auto) 0.0 L Baso % (Auto) 0.1 Gran # 49.97 H Lymph # (Auto) 3.6 H [place] # (Auto) 3.1 H Eos # (Auto) 0.0 Baso # (Auto) 0.06 APTT Sodium 137 Potassium 4.1 Chloride 108 H Carbon Dioxide 18 L Anion Gap 15 BUN 12 Creatinine 0.5 L Est GFR ( Amer) > 60 Est GFR (Non-Af Amer) > 60 POC Glucose (mg/dL) 160 H Random Glucose 283 H Lactic Acid Calcium 8.3 L Phosphorus Magnesium Total Bilirubin AST ALT Alkaline Phosphatase Troponin I Total Protein Albumin Globulin Albumin/Globulin Ratio Assessment & Plan (1) Leukocytosis Status: Acute Priority: High - Assessment and Plan (Free Text) Assessment: In summary, this is a 41 year old male patient with multiple comorbid conditions including DM, CHF s/p AICD placement, asplenia admitted for sepsis noted to have gram + cocci bacteremia. Patient has a leukomoid reaction in the setting of bacteremia and asplenia. Differential consistent with leukomoid reaction mostly neutrophils. Patient is clinically improving with fluids, pressors and antibiotics. Plan Will follow up peripheral flow cytometry which was sent Continue IV antibiotics Continue supportive measures Patient does not need emergent leukaphersis unless counts are >100K Will continue to follow Thank you for allowing me to partake in your patients care. Sincerely, Ernesto Monroe
[2017-10-26] MEDS: Oxycodone/Acetaminophen 5/325 mg Tab PO PRN (20:33)
--- NOTE | 2017-10-26 20:41 | CP.CCUPN ---
<Rosales,Jaylan - Last Filed: 10/26/17 20:37> CCU Subjective - Physician Review Subjective (Free Text): Jaylan Rosales DO PGY1 - Internal medicine Grading Clerk - ICU Progress Note Seen and examined this morning at bedside; Reports pleuritic chest pain is unchanged; Reporting some cough and SOB 2/2 pleuritic pain 12 System ROS is otherwise negative 10/26/17 20:41 CCU Objective - Vital Signs / Intake & Output Vital Signs (Last 4 hours): Vital Signs Pulse Resp BP Pulse Ox 10/26/17 18:00 90 10/26/17 17:00 90 135/81 10/26/17 16:50 99 H 18 98 10/26/17 16:40 91 H 30 H 92 L Intake and Output (Last 8hrs): Intake & Output 10/26/17 10/26/17 10/26/17 06:59 14:59 22:59 Intake Total 1722 58 1342 Output Total 300 600 Balance 1422 58 742 Intake: IV 1722 58 892 Right Antecubital 1650 400 abx 450 heparin 42 Oral 450 Output: Urine 300 600 Urine, Voided 300 600 Other: # Voids Urine, Voided 1 # Bowel Movements 0 1 - Physical Exam Head: Positive for: Atraumatic, Normocephalic Pupils: Positive for: PERRL Extroacular Muscles: Positive for: EOMI Conjunctiva: Positive for: Normal Mouth: Positive for: Moist Mucous Membranes Respiratory/Chest: Positive for: Clear to Auscultation (equal bilaterally), Good Air Exchange, Tender to Palpation (left anterior chest wall), Other ( Midline scar appreciated from procedure; AICD placement scar - hyper pigmented in L axillary aspect of chest appreciated). Negative for: Respiratory Distress , Accessory Muscle Use, Wheezes, Rales, Rhonchi Cardiovascular: Positive for: Regular Rate and Rhythm, Normal S1, S2. Negative for: Murmurs Abdomen: Negative for: Tenderness, Distention, Peritoneal Signs Upper Extremity: Positive for: Normal Inspection. Negative for: Cyanosis, Edema Lower Extremity: Positive for: Normal Inspection, NORMAL PULSES (distal pulses equal and strong). Negative for: Edema (no pedal edema) Neurological: Positive for: GCS=15, CN II-XII Intact, Speech Normal Skin: Positive for: Warm, Dry, Normal Color. Negative for: Rashes Psychiatric: Positive for: Alert, Oriented x 3, Normal Insight, Normal Concentration - Medications Active Medications: Active Medications Generic Name Dose Route Start Last Admin Trade Name Freq PRN Reason Stop Dose Admin Acetaminophen 650 mg 10/24/17 23:25 10/25/17 18:18 Tylenol 325mg Tab PO 650 mg Q6H PRN Administration Temperature Albuterol Sulfate 2.5 mg 10/24/17 18:01 Albuterol 0.083% Inhal Isha (2.5 Mg/3 Ml) Ud INH [id number] PRN Shortness of Breath Aspirin 81 mg 10/25/17 10:00 10/26/17 10:41 Aspirin Chewable PO 81 mg DAILY LA Administration Atorvastatin Calcium 20 mg 10/24/17 18:15 10/26/17 16:35 Lipitor PO 20 mg DIN LA Administration Carvedilol 3.125 mg 10/25/17 08:00 Coreg PO 0800,1800 LA Heparin Sodium/Sodium Chloride 25,000 units in 250 mls @ 14.288 mls/hr 17:55 10/26/17 07:01 Heparin 92467 Units/250ml 1/2 Normal Saline IV 23 units/kg/hr .[id number] LA 18.257 mls/hr Protocol Administration 18 UNITS/KG/HR Vancomycin HCl 1 gm in 250 mls @ 167 mls/hr 10/24/17 22:00 10/26/17 17:59 Vancomycin 1gm IVPB 167 mls/hr 0600,1800 LA Administration Protocol Norepinephrine Bitartrate 8 mg 508 mls @ 15.24 mls/hr 10/25/17 22:00 09:00 / Sodium Chloride IV 0 mcg/min .Q24H PRN 0 mls/hr TITRATE PER MD ORDER Titration Protocol 4 MCG/MIN Dobutamine HCl/Dextrose 500 mg in 250 mls @ 4.714 mls/hr 10/26/17 10:21 10/26 10:41 Dobutamine/Dextrose 5% 500mg/250ml IV 2 mcg/kg/min .Q24H PRN 4.714 mls/hr TITRATE PER PROTOCOL Administration Protocol 2 MCG/KG/MIN Ceftriaxone Sodium 1 gm in 100 mls @ 100 mls/hr 10/26/17 16:15 10/26/17 16:36 Rocephin 1 Gram Ivpb IVPB 100 mls/hr DAILY LA Administration Protocol Insulin Detemir 40 unit 10/26/17 22:00 Levemir SC HS LA Insulin Human Lispro 0 units 10/26/17 22:00 Humalog Low SC ACHS LA Protocol Insulin Lispro Protam/Lispro Human 14 units 10/27/17 07:30 Humalog Mix 75/25 SC ACB LA Insulin Lispro Protam/Lispro Human 10 units 10/27/17 16:30 Humalog Mix 75/25 SC ACD LA Lidocaine 1 ea 10/26/17 10:30 10/26/17 10:41 Lidoderm TD 1 ea DAILY LA Administration Oxycodone/Acetaminophen 1 tab 10/26/17 19:56 10/26/17 20:33 Percocet 5/325 Mg Tab PO 10/29/17 19:57 1 tab Q6H PRN Administration Pain, moderate (4-7) Pantoprazole Sodium 40 mg 10/24/17 20:45 10/26/17 07:00 Protonix Ec Tab PO 40 mg 0600 LA Administration - Patient Studies Lab Studies: Microbiology Studies 10/24/17 23:19 Urine Culture - Final Urine No Growth (<1,000 CFU/ML) 10/25/17 00:15 S.aureus & Coag-Neg Staph PNA FISH - Preliminary Blood-Venous Blood Culture - Preliminary Gram Positive Cocci Gram Stain - Preliminary 10/25/17 00:25 Blood Culture - Preliminary Blood-Venous Gram Positive Cocci Gram Stain - Final Lab Studies 10/26/17 10/26/17 10/26/17 Range/Units 16:25 16:25 16:18 WBC 56.8 H* (4.5-11.0) 10^3/ul RBC 4.05 (3.5-6.1) 10^6/uL Hgb 11.6 L (14.0-18.0) g/dL Hct 32.9 L (42.0-52.0) % MCV 81.2 (80.0-105.0) fl MCH 28.6 (25.0-35.0) pg MCHC 35.3 (31.0-37.0) g/dl RDW 14.6 H (11.5-14.5) % Plt Count 178 (120.0-450.0) 10^3/uL MPV 11.9 H (7.0-11.0) fl Gran % 88.0 H (50.0-68.0) % Lymph % (Auto) 6.4 L (22.0-35.0) % Garvin % (Auto) 5.5 (1.0-6.0) % Eos % (Auto) 0.0 L (1.5-5.0) % Baso % (Auto) 0.1 (0.0-3.0) % Gran # 49.97 H (1.4-6.5) Lymph # (Auto) 3.6 H (1.2-3.4) Garvin # (Auto) 3.1 H (0.1-0.6) Eos # (Auto) 0.0 (0.0-0.7) Baso # (Auto) 0.06 (0.0-2.0) K/mm3 APTT (25.1-36.5) Seconds Sodium 137 (132-148) mmol/L Potassium 4.1 (3.6-5.0) mmol/L Chloride 108 H (98-107) mmol/L Carbon Dioxide 18 L (21-33) mmol/L Anion Gap 15 (10-20) BUN 12 (7-21) mg/dL Creatinine 0.5 L (0.8-1.5) mg/dl Est GFR ( Amer) > 60 Est GFR (Non-Af Amer) > 60 POC Glucose (mg/dL) 279 H (65-110) mg/dL Random Glucose 283 H (70-110) mg/dL Lactic Acid (0.7-2.1) mmol/L Calcium 8.3 L (8.4-10.5) mg/dL Phosphorus (2.5-4.5) mg/dL Magnesium (1.7-2.2) mg/dL Total Bilirubin (0.2-1.3) mg/dL AST (17-59) U/L ALT (7-56) U/L Alkaline Phosphatase (38-126) U/L Troponin I ng/mL Total Protein (5.8-8.3) g/dL Albumin (3.0-4.8) g/dL Globulin gm/dL Albumin/Globulin Ratio (1.1-1.8) 10/26/17 10/26/1710/26/18 Range/Units 11:01 09:30 09:07 WBC (4.5-11.0) 10^3/ul RBC (3.5-6.1) 10^6/uL Hgb (14.0-18.0) g/dL Hct (42.0-52.0) % MCV (80.0-105.0) fl MCH (25.0-35.0) pg MCHC (31.0-37.0) g/dl RDW (11.5-14.5) % Plt Count (120.0-450.0) 10^3/uL MPV (7.0-11.0) fl Gran % (50.0-68.0) % Lymph % (Auto) (22.0-35.0) % Garvin % (Auto) (1.0-6.0) % Eos % (Auto) (1.5-5.0) % Baso % (Auto) (0.0-3.0) % Gran # (1.4-6.5) Lymph # (Auto) (1.2-3.4) Garvin # (Auto) (0.1-0.6) Eos # (Auto) (0.0-0.7) Baso # (Auto) (0.0-2.0) K/mm3 APTT (25.1-36.5) Seconds Sodium (132-148) mmol/L Potassium (3.6-5.0) mmol/L Chloride (98-107) mmol/L Carbon Dioxide (21-33) mmol/L Anion Gap (10-20) BUN (7-21) mg/dL Creatinine (0.8-1.5) mg/dl Est GFR ( Amer) Est GFR (Non-Af Amer) POC Glucose (mg/dL) 160 H 153 H (65-110) mg/dL Random Glucose (70-110) mg/dL Lactic Acid 1.5 (0.7-2.1) mmol/L Calcium (8.4-10.5) mg/dL Phosphorus (2.5-4.5) mg/dL Magnesium (1.7-2.2) mg/dL Total Bilirubin (0.2-1.3) mg/dL AST (17-59) U/L ALT (7-56) U/L Alkaline Phosphatase (38-126) U/L Troponin I ng/mL Total Protein (5.8-8.3) g/dL Albumin (3.0-4.8) g/dL Globulin gm/dL Albumin/Globulin Ratio (1.1-1.8) 10/26/17 10/26/17 10/26/17 Range/Units 07:58 07:58 07:58 WBC 54.8 H* D (4.5-11.0) 10^3/ul RBC 4.08 (3.5-6.1) 10^6/uL Hgb 11.6 L (14.0-18.0) g/dL Hct 32.9 L (42.0-52.0) % MCV 80.6 (80.0-105.0) fl MCH 28.4 (25.0-35.0) pg MCHC 35.3 (31.0-37.0) g/dl RDW 14.4 (11.5-14.5) % Plt Count 165 (120.0-450.0) 10^3/uL MPV 10.9 (7.0-11.0) fl Gran % 87.0 H (50.0-68.0) % Lymph % (Auto) 6.3 L (22.0-35.0) % Garvin % (Auto) 6.6 H (1.0-6.0) % Eos % (Auto) 0.0 L (1.5-5.0) % Baso % (Auto) 0.1 (0.0-3.0) % Gran # 47.58 H (1.4-6.5) Lymph # (Auto) 3.5 H (1.2-3.4) Garvin # (Auto) 3.6 H (0.1-0.6) Eos # (Auto) 0.0 (0.0-0.7) Baso # (Auto) 0.05 (0.0-2.0) K/mm3 APTT 61.5 H (25.1-36.5) Seconds Sodium 143 (132-148) mmol/L Potassium 3.5 L (3.6-5.0) mmol/L Chloride 111 H (98-107) mmol/L Carbon Dioxide 20 L (21-33) mmol/L Anion Gap 15 (10-20) BUN 12 (7-21) mg/dL Creatinine 0.6 L (0.8-1.5) mg/dl Est GFR ( Amer) > 60 Est GFR (Non-Af Amer) > 60 POC Glucose (mg/dL) (65-110) mg/dL Random Glucose 160 H (70-110) mg/dL Lactic Acid (0.7-2.1) mmol/L Calcium 8.5 (8.4-10.5) mg/dL Phosphorus 1.2 L* (2.5-4.5) mg/dL Magnesium 1.6 L (1.7-2.2) mg/dL Total Bilirubin 0.6 (0.2-1.3) mg/dL AST 21 (17-59) U/L ALT 29 (7-56) U/L Alkaline Phosphatase 135 H D (38-126) U/L Troponin I ng/mL Total Protein 4.9 L (5.8-8.3) g/dL Albumin 2.8 L (3.0-4.8) g/dL Globulin 2.2 gm/dL Albumin/Globulin Ratio 1.3 (1.1-1.8) 10/26/17 10/26/17 10/26/17 Range/Units 07:50 06:17 05:13 WBC (4.5-11.0) 10^3/ul RBC (3.5-6.1) 10^6/uL Hgb (14.0-18.0) g/dL Hct (42.0-52.0) % MCV (80.0-105.0) fl MCH (25.0-35.0) pg MCHC (31.0-37.0) g/dl RDW (11.5-14.5) % Plt Count (120.0-450.0) 10^3/uL MPV (7.0-11.0) fl Gran % (50.0-68.0) % Lymph % (Auto) (22.0-35.0) % Garvin % (Auto) (1.0-6.0) % Eos % (Auto) (1.5-5.0) % Baso % (Auto) (0.0-3.0) % Gran # (1.4-6.5) Lymph # (Auto) (1.2-3.4) Garvin # (Auto) (0.1-0.6) Eos # (Auto) (0.0-0.7) Baso # (Auto) (0.0-2.0) K/mm3 APTT (25.1-36.5) Seconds Sodium (132-148) mmol/L Potassium (3.6-5.0) mmol/L Chloride (98-107) mmol/L Carbon Dioxide (21-33) mmol/L Anion Gap (10-20) BUN (7-21) mg/dL Creatinine (0.8-1.5) mg/dl Est GFR ( Amer) Est GFR (Non-Af Amer) POC Glucose (mg/dL) 151 H 146 H 184 H (65-110) mg/dL Random Glucose (70-110) mg/dL Lactic Acid (0.7-2.1) mmol/L Calcium (8.4-10.5) mg/dL Phosphorus (2.5-4.5) mg/dL Magnesium (1.7-2.2) mg/dL Total Bilirubin (0.2-1.3) mg/dL AST (17-59) U/L ALT (7-56) U/L Alkaline Phosphatase (38-126) U/L Troponin I ng/mL Total Protein (5.8-8.3) g/dL Albumin (3.0-4.8) g/dL Globulin gm/dL Albumin/Globulin Ratio (1.1-1.8) 10/26/17 10/26/17 10/26/17 Range/Units 03:43 03:33 02:10 WBC (4.5-11.0) 10^3/ul RBC (3.5-6.1) 10^6/uL Hgb (14.0-18.0) g/dL Hct (42.0-52.0) % MCV (80.0-105.0) fl MCH (25.0-35.0) pg MCHC (31.0-37.0) g/dl RDW (11.5-14.5) % Plt Count (120.0-450.0) 10^3/uL MPV (7.0-11.0) fl Gran % (50.0-68.0) % Lymph % (Auto) (22.0-35.0) % Garvin % (Auto) (1.0-6.0) % Eos % (Auto) (1.5-5.0) % Baso % (Auto) (0.0-3.0) % Gran # (1.4-6.5) Lymph # (Auto) (1.2-3.4) Garvin # (Auto) (0.1-0.6) Eos # (Auto) (0.0-0.7) Baso # (Auto) (0.0-2.0) K/mm3 APTT 66.2 H (25.1-36.5) Seconds Sodium (132-148) mmol/L Potassium (3.6-5.0) mmol/L Chloride (98-107) mmol/L Carbon Dioxide (21-33) mmol/L Anion Gap (10-20) BUN (7-21) mg/dL Creatinine (0.8-1.5) mg/dl Est GFR ( Amer) Est GFR (Non-Af Amer) POC Glucose (mg/dL) 175 H 181 H (65-110) mg/dL Random Glucose (70-110) mg/dL Lactic Acid (0.7-2.1) mmol/L Calcium (8.4-10.5) mg/dL Phosphorus (2.5-4.5) mg/dL Magnesium (1.7-2.2) mg/dL Total Bilirubin (0.2-1.3) mg/dL AST (17-59) U/L ALT (7-56) U/L Alkaline Phosphatase (38-126) U/L Troponin I ng/mL Total Protein (5.8-8.3) g/dL Albumin (3.0-4.8) g/dL Globulin gm/dL Albumin/Globulin Ratio (1.1-1.8) 10/26/17 10/26/17 10/26/17 Range/Units 02:10 00:58 00:02 WBC (4.5-11.0) 10^3/ul RBC (3.5-6.1) 10^6/uL Hgb (14.0-18.0) g/dL Hct (42.0-52.0) % MCV (80.0-105.0) fl MCH (25.0-35.0) pg MCHC (31.0-37.0) g/dl RDW (11.5-14.5) % Plt Count (120.0-450.0) 10^3/uL MPV (7.0-11.0) fl Gran % (50.0-68.0) % Lymph % (Auto) (22.0-35.0) % Garvin % (Auto) (1.0-6.0) % Eos % (Auto) (1.5-5.0) % Baso % (Auto) (0.0-3.0) % Gran # (1.4-6.5) Lymph # (Auto) (1.2-3.4) Garvin # (Auto) (0.1-0.6) Eos # (Auto) (0.0-0.7) Baso # (Auto) (0.0-2.0) K/mm3 APTT (25.1-36.5) Seconds Sodium 142 (132-148) mmol/L Potassium 3.7 (3.6-5.0) mmol/L Chloride 110 H (98-107) mmol/L Carbon Dioxide 20 L (21-33) mmol/L Anion Gap 16 (10-20) BUN 15 (7-21) mg/dL Creatinine 0.6 L (0.8-1.5) mg/dl Est GFR ( Amer) > 60 Est GFR (Non-Af Amer) > 60 POC Glucose (mg/dL) 191 H 207 H (65-110) mg/dL Random Glucose 181 H (70-110) mg/dL Lactic Acid (0.7-2.1) mmol/L Calcium 8.7 (8.4-10.5) mg/dL Phosphorus (2.5-4.5) mg/dL Magnesium (1.7-2.2) mg/dL Total Bilirubin (0.2-1.3) mg/dL AST (17-59) U/L ALT (7-56) U/L Alkaline Phosphatase (38-126) U/L Troponin I 0.19 H* D ng/mL Total Protein (5.8-8.3) g/dL Albumin (3.0-4.8) g/dL Globulin gm/dL Albumin/Globulin Ratio (1.1-1.8) 10/25/17 10/25/17 10/25/17 Range/Units 23:18 22:18 21:00 WBC (4.5-11.0) 10^3/ul RBC (3.5-6.1) 10^6/uL Hgb (14.0-18.0) g/dL Hct (42.0-52.0) % MCV (80.0-105.0) fl MCH (25.0-35.0) pg MCHC (31.0-37.0) g/dl RDW (11.5-14.5) % Plt Count (120.0-450.0) 10^3/uL MPV (7.0-11.0) fl Gran % (50.0-68.0) % Lymph % (Auto) (22.0-35.0) % Garvin % (Auto) (1.0-6.0) % Eos % (Auto) (1.5-5.0) % Baso % (Auto) (0.0-3.0) % Gran # (1.4-6.5) Lymph # (Auto) (1.2-3.4) Garvin # (Auto) (0.1-0.6) Eos # (Auto) (0.0-0.7) Baso # (Auto) (0.0-2.0) K/mm3 APTT (25.1-36.5) Seconds Sodium (132-148) mmol/L Potassium (3.6-5.0) mmol/L Chloride (98-107) mmol/L Carbon Dioxide (21-33) mmol/L Anion Gap (10-20) BUN (7-21) mg/dL Creatinine (0.8-1.5) mg/dl Est GFR ( Amer) Est GFR (Non-Af Amer) POC Glucose (mg/dL) 212 H 230 H 231 H (65-110) mg/dL Random Glucose (70-110) mg/dL Lactic Acid (0.7-2.1) mmol/L Calcium (8.4-10.5) mg/dL Phosphorus (2.5-4.5) mg/dL Magnesium (1.7-2.2) mg/dL Total Bilirubin (0.2-1.3) mg/dL AST (17-59) U/L ALT (7-56) U/L Alkaline Phosphatase (38-126) U/L Troponin I ng/mL Total Protein (5.8-8.3) g/dL Albumin (3.0-4.8) g/dL Globulin gm/dL Albumin/Globulin Ratio (1.1-1.8) 10/25/17 10/25/17 10/25/17 Range/Units 20:22 20:22 13:27 WBC (4.5-11.0) 10^3/ul RBC (3.5-6.1) 10^6/uL Hgb (14.0-18.0) g/dL Hct (42.0-52.0) % MCV (80.0-105.0) fl MCH (25.0-35.0) pg MCHC (31.0-37.0) g/dl RDW (11.5-14.5) % Plt Count (120.0-450.0) 10^3/uL MPV (7.0-11.0) fl Gran % (50.0-68.0) % Lymph % (Auto) (22.0-35.0) % Garvin % (Auto) (1.0-6.0) % Eos % (Auto) (1.5-5.0) % Baso % (Auto) (0.0-3.0) % Gran # (1.4-6.5) Lymph # (Auto) (1.2-3.4) Garvin # (Auto) (0.1-0.6) Eos # (Auto) (0.0-0.7) Baso # (Auto) (0.0-2.0) K/mm3 APTT 85.3 H (25.1-36.5) Seconds Sodium 141 (132-148) mmol/L Potassium 3.9 (3.6-5.0) mmol/L Chloride 110 H (98-107) mmol/L Carbon Dioxide 17 L (21-33) mmol/L Anion Gap 18 (10-20) BUN 18 (7-21) mg/dL Creatinine 0.7 L (0.8-1.5) mg/dl Est GFR ( Amer) > 60 Est GFR (Non-Af Amer) > 60 POC Glucose (mg/dL) 252 H (65-110) mg/dL Random Glucose 228 H (70-110) mg/dL Lactic Acid (0.7-2.1) mmol/L Calcium 8.7 (8.4-10.5) mg/dL Phosphorus (2.5-4.5) mg/dL Magnesium (1.7-2.2) mg/dL Total Bilirubin (0.2-1.3) mg/dL AST (17-59) U/L ALT (7-56) U/L Alkaline Phosphatase (38-126) U/L Troponin I 0.15 H* D ng/mL Total Protein (5.8-8.3) g/dL Albumin (3.0-4.8) g/dL Globulin gm/dL Albumin/Globulin Ratio (1.1-1.8) 10/25/17 10/25/17 10/25/17 Range/Units 11:02 09:46 07:42 WBC (4.5-11.0) 10^3/ul RBC (3.5-6.1) 10^6/uL Hgb (14.0-18.0) g/dL Hct (42.0-52.0) % MCV (80.0-105.0) fl MCH (25.0-35.0) pg MCHC (31.0-37.0) g/dl RDW (11.5-14.5) % Plt Count (120.0-450.0) 10^3/uL MPV (7.0-11.0) fl Gran % (50.0-68.0) % Lymph % (Auto) (22.0-35.0) % Garvin % (Auto) (1.0-6.0) % Eos % (Auto) (1.5-5.0) % Baso % (Auto) (0.0-3.0) % Gran # (1.4-6.5) Lymph # (Auto) (1.2-3.4) Garvin # (Auto) (0.1-0.6) Eos # (Auto) (0.0-0.7) Baso # (Auto) (0.0-2.0) K/mm3 APTT (25.1-36.5) Seconds Sodium (132-148) mmol/L Potassium (3.6-5.0) mmol/L Chloride (98-107) mmol/L Carbon Dioxide (21-33) mmol/L Anion Gap (10-20) BUN (7-21) mg/dL Creatinine (0.8-1.5) mg/dl Est GFR ( Amer) Est GFR (Non-Af Amer) POC Glucose (mg/dL) 196 H 163 H 145 H (65-110) mg/dL Random Glucose (70-110) mg/dL Lactic Acid (0.7-2.1) mmol/L Calcium (8.4-10.5) mg/dL Phosphorus (2.5-4.5) mg/dL Magnesium (1.7-2.2) mg/dL Total Bilirubin (0.2-1.3) mg/dL AST (17-59) U/L ALT (7-56) U/L Alkaline Phosphatase (38-126) U/L Troponin I ng/mL Total Protein (5.8-8.3) g/dL Albumin (3.0-4.8) g/dL Globulin gm/dL Albumin/Globulin Ratio (1.1-1.8) 10/25/17 10/25/17 10/25/17 Range/Units 07:06 05:59 04:53 WBC (4.5-11.0) 10^3/ul RBC (3.5-6.1) 10^6/uL Hgb (14.0-18.0) g/dL Hct (42.0-52.0) % MCV (80.0-105.0) fl MCH (25.0-35.0) pg MCHC (31.0-37.0) g/dl RDW (11.5-14.5) % Plt Count (120.0-450.0) 10^3/uL MPV (7.0-11.0) fl Gran % (50.0-68.0) % Lymph % (Auto) (22.0-35.0) % Garvin % (Auto) (1.0-6.0) % Eos % (Auto) (1.5-5.0) % Baso % (Auto) (0.0-3.0) % Gran # (1.4-6.5) Lymph # (Auto) (1.2-3.4) Garvin # (Auto) (0.1-0.6) Eos # (Auto) (0.0-0.7) Baso # (Auto) (0.0-2.0) K/mm3 APTT (25.1-36.5) Seconds Sodium (132-148) mmol/L Potassium (3.6-5.0) mmol/L Chloride (98-107) mmol/L Carbon Dioxide (21-33) mmol/L Anion Gap (10-20) BUN (7-21) mg/dL Creatinine (0.8-1.5) mg/dl Est GFR ( Amer) Est GFR (Non-Af Amer) POC Glucose (mg/dL) 169 H 173 H 226 H (65-110) mg/dL Random Glucose (70-110) mg/dL Lactic Acid (0.7-2.1) mmol/L Calcium (8.4-10.5) mg/dL Phosphorus (2.5-4.5) mg/dL Magnesium (1.7-2.2) mg/dL Total Bilirubin (0.2-1.3) mg/dL AST (17-59) U/L ALT (7-56) U/L Alkaline Phosphatase (38-126) U/L Troponin I ng/mL Total Protein (5.8-8.3) g/dL Albumin (3.0-4.8) g/dL Globulin gm/dL Albumin/Globulin Ratio (1.1-1.8) 10/25/17 10/25/17 Range/Units 03:54 03:06 WBC (4.5-11.0) 10^3/ul RBC (3.5-6.1) 10^6/uL Hgb (14.0-18.0) g/dL Hct (42.0-52.0) % MCV (80.0-105.0) fl MCH (25.0-35.0) pg MCHC (31.0-37.0) g/dl RDW (11.5-14.5) % Plt Count (120.0-450.0) 10^3/uL MPV (7.0-11.0) fl Gran % (50.0-68.0) % Lymph % (Auto) (22.0-35.0) % Garvin % (Auto) (1.0-6.0) % Eos % (Auto) (1.5-5.0) % Baso % (Auto) (0.0-3.0) % Gran # (1.4-6.5) Lymph # (Auto) (1.2-3.4) Garvin # (Auto) (0.1-0.6) Eos # (Auto) (0.0-0.7) Baso # (Auto) (0.0-2.0) K/mm3 APTT (25.1-36.5) Seconds Sodium (132-148) mmol/L Potassium (3.6-5.0) mmol/L Chloride (98-107) mmol/L Carbon Dioxide (21-33) mmol/L Anion Gap (10-20) BUN (7-21) mg/dL Creatinine (0.8-1.5) mg/dl Est GFR ( Amer) Est GFR (Non-Af Amer) POC Glucose (mg/dL) 251 H 295 H (65-110) mg/dL Random Glucose (70-110) mg/dL Lactic Acid (0.7-2.1) mmol/L Calcium (8.4-10.5) mg/dL Phosphorus (2.5-4.5) mg/dL Magnesium (1.7-2.2) mg/dL Total Bilirubin (0.2-1.3) mg/dL AST (17-59) U/L ALT (7-56) U/L Alkaline Phosphatase (38-126) U/L Troponin I ng/mL Total Protein (5.8-8.3) g/dL Albumin (3.0-4.8) g/dL Globulin gm/dL Albumin/Globulin Ratio (1.1-1.8) Laboratory Results - last 24 hr 10/25/17 10/25/17 10/25/17 03:06 03:54 04:53 WBC RBC Hgb Hct MCV MCH MCHC RDW Plt Count MPV Gran % Lymph % (Auto) Garvin % (Auto) Eos % (Auto) Baso % (Auto) Gran # Lymph # (Auto) Garvin # (Auto) Eos # (Auto) Baso # (Auto) APTT Sodium Potassium Chloride Carbon Dioxide Anion Gap BUN Creatinine Est GFR ( Amer) Est GFR (Non-Af Amer) POC Glucose (mg/dL) 295 H 251 H 226 H Random Glucose Lactic Acid Calcium Phosphorus Magnesium Total Bilirubin AST ALT Alkaline Phosphatase Troponin I Total Protein Albumin Globulin Albumin/Globulin Ratio 10/25/17 10/25/17 10/25/17 05:59 07:06 07:42 WBC RBC Hgb Hct MCV MCH MCHC RDW Plt Count MPV Gran % Lymph % (Auto) Garvin % (Auto) Eos % (Auto) Baso % (Auto) Gran # Lymph # (Auto) Garvin # (Auto) Eos # (Auto) Baso # (Auto) APTT Sodium Potassium Chloride Carbon Dioxide Anion Gap BUN Creatinine Est GFR ( Amer) Est GFR (Non-Af Amer) POC Glucose (mg/dL) 173 H 169 H 145 H Random Glucose Lactic Acid Calcium Phosphorus Magnesium Total Bilirubin AST ALT Alkaline Phosphatase Troponin I Total Protein Albumin Globulin Albumin/Globulin Ratio 10/25/17 10/25/17 10/25/17 09:46 11:02 13:27 WBC RBC Hgb Hct MCV MCH MCHC RDW Plt Count MPV Gran % Lymph % (Auto) Garvin % (Auto) Eos % (Auto) Baso % (Auto) Gran # Lymph # (Auto) Garvin # (Auto) Eos # (Auto) Baso # (Auto) APTT Sodium Potassium Chloride Carbon Dioxide Anion Gap BUN Creatinine Est GFR ( Amer) Est GFR (Non-Af Amer) POC Glucose (mg/dL) 163 H 196 H 252 H Random Glucose Lactic Acid Calcium Phosphorus Magnesium Total Bilirubin AST ALT Alkaline Phosphatase Troponin I Total Protein Albumin Globulin Albumin/Globulin Ratio 10/25/17 10/25/17 10/25/17 20:22 20:22 21:00 WBC RBC Hgb Hct MCV MCH MCHC RDW Plt Count MPV Gran % Lymph % (Auto) Garvin % (Auto) Eos % (Auto) Baso % (Auto) Gran # Lymph # (Auto) Garvin # (Auto) Eos # (Auto) Baso # (Auto) APTT 85.3 H Sodium 141 Potassium 3.9 Chloride 110 H Carbon Dioxide 17 L Anion Gap 18 BUN 18 Creatinine 0.7 L Est GFR ( Amer) > 60 Est GFR (Non-Af Amer) > 60 POC Glucose (mg/dL) 231 H Random Glucose 228 H Lactic Acid Calcium 8.7 Phosphorus Magnesium Total Bilirubin AST ALT Alkaline Phosphatase Troponin I 0.15 H* D Total Protein Albumin Globulin Albumin/Globulin Ratio 10/25/17 10/25/17 10/26/17 22:18 23:18 00:02 WBC RBC Hgb Hct MCV MCH MCHC RDW Plt Count MPV Gran % Lymph % (Auto) Garvin % (Auto) Eos % (Auto) Baso % (Auto) Gran # Lymph # (Auto) Garvin # (Auto) Eos # (Auto) Baso # (Auto) APTT Sodium Potassium Chloride Carbon Dioxide Anion Gap BUN Creatinine Est GFR ( Amer) Est GFR (Non-Af Amer) POC Glucose (mg/dL) 230 H 212 H 207 H Random Glucose Lactic Acid Calcium Phosphorus Magnesium Total Bilirubin AST ALT Alkaline Phosphatase Troponin I Total Protein Albumin Globulin Albumin/Globulin Ratio 10/26/17 10/26/17 10/26/17 00:58 02:10 02:10 WBC RBC Hgb Hct MCV MCH MCHC RDW Plt Count MPV Gran % Lymph % (Auto) Garvin % (Auto) Eos % (Auto) Baso % (Auto) Gran # Lymph # (Auto) Garvin # (Auto) Eos # (Auto) Baso # (Auto) APTT 66.2 H Sodium 142 Potassium 3.7 Chloride 110 H Carbon Dioxide 20 L Anion Gap 16 BUN 15 Creatinine 0.6 L Est GFR ( Amer) > 60 Est GFR (Non-Af Amer) > 60 POC Glucose (mg/dL) 191 H Random Glucose 181 H Lactic Acid Calcium 8.7 Phosphorus Magnesium Total Bilirubin AST ALT Alkaline Phosphatase Troponin I 0.19 H* D Total Protein Albumin Globulin Albumin/Globulin Ratio 10/26/17 10/26/17 10/26/17 03:33 03:43 05:13 WBC RBC Hgb Hct MCV MCH MCHC RDW Plt Count MPV Gran % Lymph % (Auto) Garvin % (Auto) Eos % (Auto) Baso % (Auto) Gran # Lymph # (Auto) Garvin # (Auto) Eos # (Auto) Baso # (Auto) APTT Sodium Potassium Chloride Carbon Dioxide Anion Gap BUN Creatinine Est GFR ( Amer) Est GFR (Non-Af Amer) POC Glucose (mg/dL) 181 H 175 H 184 H Random Glucose Lactic Acid Calcium Phosphorus Magnesium Total Bilirubin AST ALT Alkaline Phosphatase Troponin I Total Protein Albumin Globulin Albumin/Globulin Ratio 10/26/17 10/26/17 10/26/17 06:17 07:50 07:58 WBC RBC Hgb Hct MCV MCH MCHC RDW Plt Count MPV Gran % Lymph % (Auto) Garvin % (Auto) Eos % (Auto) Baso % (Auto) Gran # Lymph # (Auto) Garvin # (Auto) Eos # (Auto) Baso # (Auto) APTT Sodium 143 Potassium 3.5 L Chloride 111 H Carbon Dioxide 20 L Anion Gap 15 BUN 12 Creatinine 0.6 L Est GFR ( Amer) > 60 Est GFR (Non-Af Amer) > 60 POC Glucose (mg/dL) 146 H 151 H Random Glucose 160 H Lactic Acid Calcium 8.5 Phosphorus 1.2 L* Magnesium 1.6 L Total Bilirubin 0.6 AST 21 ALT 29 Alkaline Phosphatase 135 H D Troponin I Total Protein 4.9 L Albumin 2.8 L Globulin 2.2 Albumin/Globulin Ratio 1.3 10/26/17 10/26/17 10/26/17 07:58 07:58 09:07 WBC 54.8 H* D RBC 4.08 Hgb 11.6 L Hct 32.9 L MCV 80.6 MCH 28.4 MCHC 35.3 RDW 14.4 Plt Count 165 MPV 10.9 Gran % 87.0 H Lymph % (Auto) 6.3 L Garvin % (Auto) 6.6 H Eos % (Auto) 0.0 L Baso % (Auto) 0.1 Gran # 47.58 H Lymph # (Auto) 3.5 H Garvin # (Auto) 3.6 H Eos # (Auto) 0.0 Baso # (Auto) 0.05 APTT 61.5 H Sodium Potassium Chloride Carbon Dioxide Anion Gap BUN Creatinine Est GFR ( Amer) Est GFR (Non-Af Amer) POC Glucose (mg/dL) 153 H Random Glucose Lactic Acid Calcium Phosphorus Magnesium Total Bilirubin AST ALT Alkaline Phosphatase Troponin I Total Protein Albumin Globulin Albumin/Globulin Ratio 10/26/17 10/26/17 10/26/17 09:30 11:01 16:18 WBC RBC Hgb Hct MCV MCH MCHC RDW Plt Count MPV Gran % Lymph % (Auto) Garvin % (Auto) Eos % (Auto) Baso % (Auto) Gran # Lymph # (Auto) Garvin # (Auto) Eos # (Auto) Baso # (Auto) APTT Sodium Potassium Chloride Carbon Dioxide Anion Gap BUN Creatinine Est GFR ( Amer) Est GFR (Non-Af Amer) POC Glucose (mg/dL) 160 H 279 H Random Glucose Lactic Acid 1.5 Calcium Phosphorus Magnesium Total Bilirubin AST ALT Alkaline Phosphatase Troponin I Total Protein Albumin Globulin Albumin/Globulin Ratio 10/26/17 10/26/17 16:25 16:25 WBC 56.8 H* RBC 4.05 Hgb 11.6 L Hct 32.9 L MCV 81.2 MCH 28.6 MCHC 35.3 RDW 14.6 H Plt Count 178 MPV 11.9 H Gran % 88.0 H Lymph % (Auto) 6.4 L Garvin % (Auto) 5.5 Eos % (Auto) 0.0 L Baso % (Auto) 0.1 Gran # 49.97 H Lymph # (Auto) 3.6 H Garvin # (Auto) 3.1 H Eos # (Auto) 0.0 Baso # (Auto) 0.06 APTT Sodium 137 Potassium 4.1 Chloride 108 H Carbon Dioxide 18 L Anion Gap 15 BUN 12 Creatinine 0.5 L Est GFR ( Amer) > 60 Est GFR (Non-Af Amer) > 60 POC Glucose (mg/dL) Random Glucose 283 H Lactic Acid Calcium 8.3 L Phosphorus Magnesium Total Bilirubin AST ALT Alkaline Phosphatase Troponin I Total Protein Albumin Globulin Albumin/Globulin Ratio Fingerstick Blood Sugar Results: 279 Review of Systems - Review of Systems All systems: reviewed and no additional remarkable complaints except Review of Systems: as per HPI Critical Care Progress Note - Nutrition Nutrition: Nutrition Category Date Time Status Heart Healthy Diet [DIET] Diets 10/26/17 Lunch Active Assessment/Plan - Assessment and Plan (Free Text) Assessment: 41M w/ a PMH significant for Factor V Leiden deficiency s/p DVTs/PEs/IVC filter/ L ventricular thrombectomy (2004) on Coumadin, HTN, DM, CHF s/p AICD placement, AICD replacement 2/2 [place] [facility] [place] psoriatic arthritis, HLD, and splenectomy (2003) who presents with complaint of shortness of breath and left-sided chest pain x3 days. Patient is being in the managed for suspected NSTEMI, SIRS, and DKA. His DKA has resolved, gap is closed. His findings are starting to become more consistent with that of septicemia/ bacteremia given 2/2 + BCX growing Gram Positive Cocci. Neurology: -AAO3 -Neurologically intact -No change in neuro status, Continue to monitor Cardiovascular: -Hx HFrEF - 30-35% - 07/2016 -LVEF of 23% on 10/26/2017 -Hemodynamically unstable on adm; Most likely septic shock however cannot rule out cardiogenic shock given his worsening EF, and troponins -Given troponins w/ no conclusive EKG changes, the patient may likley have an inflammatory cardiac process such as myocarditis or pericaridits -However no pericardial fluid appreciated on echo -Troponins 0.13, 0.13, 0.27, 0.13, 0.12, 0.15, 0.19 ; no ST segment elevations; however new T wave changes can be appreciated -No longer requiring levophed to maintain pressures -Although pressures are borderline hypotensive; this is baseline for the patient when compared to previous visits -No longer displaying tachycardia -BNP elevated 2100 -Continued on heparin drip empirically for NSTEMI -ROBYN tomorrow 10/27 -Can consider cardiac cath once infection resolves -Cardiology Dr. Santoyo following Pulm: -RLL Consolidation; suspect PNA; official read pending cannot exclude CHF -Maintain O2 Sat 95% Endo: -DKA; AG on admission 19; BG 432 -AG this AM 12 -Transitioned w/ Levemir 40 this AM -Will get Levemir 20 tonight -On ISS High AC -Endocrinology Dr. Burrows following GI: -Diet resumed -C/w Protonix /Nephro: -Hypophos, HypoMag, HypoK - Repleted this AM -Reasses and replete in AM -Renal function at baseline; BUN/Cr 12/0.5 ID: -AFebrile overnight -WBC worsening (42 --> 57) -Lactic acid elevated -Procal elevated -CXR read w/o active airway disease -CTAP wnl -UA w/o any signs of infx ; UCX normal -Blood Cx + 2/2 Gram positive cocci -Continue Empiric Vancomycin -DC Cefepime; Started Ceftriaxone 1gm QD -ID Following MSK: Pt. complaining of lower back pain this AM; Added lidocaine patch DVT PPX: Heparin drip as above GI PPX: Protonix PO DISPO: Continued ICU management at this time; if Afebrile and stable overnight, patient MAY be suitable for downgrade to tele Patient was seen, examined, and discussed at length w/ attending physician Dr. Man Rosales DO - PGY1 Internal Medicine Grading Clerk - Pager [phone] - Date & Time Date: 10/26/17 Time: 21:09 <Aaron Conway - Last Filed: 10/27/17 08:19> CCU Objective - Vital Signs / Intake & Output Vital Signs (Last 4 hours): Vital Signs Pulse Resp BP 10/27/17 05:44 88 34 H 10/27/17 05:43 94 H 27 H 10/27/17 05:42 84 38 H 10/27/17 05:41 84 36 H 10/27/17 05:40 86 36 H 10/27/17 05:39 91 H 37 H 10/27/17 05:38 86 34 H 10/27/17 05:37 91 H 19 10/27/17 05:36 104 H 10/27/17 05:35 90 34 H 10/27/17 05:34 87 25 H 10/27/17 05:33 86 34 H 10/27/17 05:32 83 33 H 10/27/17 05:31 84 36 H 10/27/17 05:30 96 H 10/27/17 05:29 84 34 H 10/27/17 05:28 83 36 H 10/27/17 05:27 86 36 H 10/27/17 05:26 88 35 H 10/27/17 05:25 84 35 H 10/27/17 05:24 84 34 H 10/27/17 05:23 84 31 H 10/27/17 05:22 83 30 H 10/27/17 05:21 84 34 H 10/27/17 05:20 83 34 H 10/27/17 05:19 85 34 H 10/27/17 05:18 86 34 H 10/27/17 05:17 87 34 H 10/27/17 05:16 86 33 H 10/27/17 05:15 84 32 H 10/27/17 05:14 92 H 35 H 10/27/17 05:13 96 H 26 H 10/27/17 05:12 99 H 35 H 10/27/17 05:11 99 H 28 H 10/27/17 05:10 94 H 10/27/17 05:09 116 H 10/27/17 05:08 87 31 H 10/27/17 05:07 89 32 H 10/27/17 05:06 84 31 H 10/27/17 05:05 87 31 H 10/27/17 05:04 87 27 H 10/27/17 05:03 83 31 H 10/27/17 05:02 85 35 H 10/27/17 05:01 83 32 H 10/27/17 05:00 128/67 10/27/17 04:59 86 34 H 10/27/17 04:58 84 29 H 10/27/17 04:57 83 32 H 10/27/17 04:56 84 31 H 10/27/17 04:55 82 28 H Intake and Output (Last 8hrs): Intake & Output 10/26/17 10/27/17 10/27/17 22:59 06:59 14:59 Intake Total 1342 522 Output Total 600 700 Balance 742 -178 Intake: IV 892 522 Right Antecubital 400 Right Internal Jugular 522 abx 450 heparin 42 Oral 450 Output: Urine 600 700 Urine, Voided 600 700 Other: # Voids Urine, Voided 1 # Bowel Movements 1 - Medications Active Medications: Active Medications Generic Name Dose Route Start Last Admin Trade Name Freq PRN Reason Stop Dose Admin Acetaminophen 650 mg 10/24/17 23:25 10/25/17 18:18 Tylenol 325mg Tab PO 650 mg Q6H PRN Administration Temperature Albuterol Sulfate 2.5 mg 10/24/17 18:01 Albuterol 0.083% Inhal Isha (2.5 Mg/3 Ml) Ud INH [id number] PRN Shortness of Breath Aspirin 81 mg 10/25/17 10:00 10/26/17 10:41 Aspirin Chewable PO 81 mg DAILY LA Administration Atorvastatin Calcium 20 mg 10/24/17 18:15 10/26/17 16:35 Lipitor PO 20 mg DIN LA Administration Carvedilol 3.125 mg 10/25/17 08:00 Coreg PO 0800,1800 LA Heparin Sodium/Sodium Chloride 25,000 units in 250 mls @ 14.288 mls/hr 17:55 10/26/17 07:01 Heparin 53624 Units/250ml 1/2 Normal Saline IV 23 units/kg/hr .[id number] LA 18.257 mls/hr Protocol Administration 18 UNITS/KG/HR Vancomycin HCl 1 gm in 250 mls @ 167 mls/hr 10/24/17 22:00 10/27/17 05:06 Vancomycin 1gm IVPB 167 mls/hr 0600,1800 [facility] Administration Protocol Norepinephrine Bitartrate 8 mg 508 mls @ 15.24 mls/hr 10/25/17 22:00 09:00 / Sodium Chloride IV 0 mcg/min .Q24H PRN 0 mls/hr TITRATE PER MD ORDER Titration Protocol 4 MCG/MIN Dobutamine HCl/Dextrose 500 mg in 250 mls @ 4.714 mls/hr 10/26/17 10:21 10/26 10:41 Dobutamine/Dextrose 5% 500mg/250ml IV 2 mcg/kg/min .Q24H PRN 4.714 mls/hr TITRATE PER PROTOCOL Administration Protocol 2 MCG/KG/MIN Ceftriaxone Sodium 1 gm in 100 mls @ 100 mls/hr 10/26/17 16:15 10/26/17 16:36 Rocephin 1 Gram Ivpb IVPB 100 mls/hr DAILY LA Administration Protocol Insulin Detemir 40 unit 10/26/17 22:00 10/26/17 21:51 Levemir SC 40 units HS LA Administration Insulin Human Lispro 0 units 10/26/17 22:00 10/26/17 21:48 Humalog Low SC 3 units ACHS LA Administration Protocol Insulin Lispro Protam/Lispro Human 14 units 10/27/17 07:30 Humalog Mix 75/25 SC ACB LA Insulin Lispro Protam/Lispro Human 10 units 10/27/17 16:30 Humalog Mix 75/25 SC ACD LA Lidocaine 1 ea 10/26/17 10:30 10/26/17 10:41 Lidoderm TD 1 ea DAILY LA Administration Oxycodone/Acetaminophen 1 tab 10/26/17 19:56 10/27/17 06:17 Percocet 5/325 Mg Tab PO 10/29/17 19:57 1 tab Q6H PRN Administration Pain, moderate (4-7) Pantoprazole Sodium 40 mg 10/24/17 20:45 08/31/18 06:17 Protonix Ec Tab PO 40 mg 0600 LA Administration - Patient Studies Lab Studies: Microbiology Studies 10/24/17 23:19 Urine Culture - Final Urine No Growth (<1,000 CFU/ML) 10/25/17 00:15 S.aureus & Coag-Neg Staph PNA FISH - Preliminary Blood-Venous Blood Culture - Preliminary Gram Positive Cocci Gram Stain - Preliminary 10/25/17 00:25 Blood Culture - Preliminary Blood-Venous Gram Positive Cocci Gram Stain - Final Lab Studies 10/27/17 10/27/17 10/27/17 Range/Units 05:30 05:30 05:30 WBC 40.0 H* D (4.5-11.0) 10^3/ul RBC 4.20 (3.5-6.1) 10^6/uL Hgb 11.8 L (14.0-18.0) g/dL Hct 34.4 L (42.0-52.0) % MCV 81.9 (80.0-105.0) fl MCH 28.1 (25.0-35.0) pg MCHC 34.3 (31.0-37.0) g/dl RDW 15.0 H (11.5-14.5) % Plt Count 201 (120.0-450.0) 10^3/uL MPV 13.0 H (7.0-11.0) fl Gran % 89.3 H (50.0-68.0) % Lymph % (Auto) 8.0 L (22.0-35.0) % Garvin % (Auto) 2.5 (1.0-6.0) % Eos % (Auto) 0.1 L (1.5-5.0) % Baso % (Auto) 0.1 (0.0-3.0) % Gran # 35.67 H (1.4-6.5) Lymph # (Auto) 3.2 (1.2-3.4) Garvin # (Auto) 1.0 H (0.1-0.6) Eos # (Auto) 0.1 (0.0-0.7) Baso # (Auto) 0.05 (0.0-2.0) K/mm3 PT 12.2 (9.4-12.5) SECONDS INR 1.06 APTT 40.9 H (25.1-36.5) Seconds Sodium 139 (132-148) mmol/L Potassium 4.0 (3.6-5.0) mmol/L Chloride 107 (98-107) mmol/L Carbon Dioxide 21 (21-33) mmol/L Anion Gap 15 (10-20) BUN 12 (7-21) mg/dL Creatinine 0.6 L (0.8-1.5) mg/dl Est GFR ( Amer) > 60 Est GFR (Non-Af Amer) > 60 POC Glucose (mg/dL) (65-110) mg/dL Random Glucose 259 H (70-110) mg/dL Lactic Acid (0.7-2.1) mmol/L Calcium 8.4 (8.4-10.5) mg/dL Phosphorus 1.7 L (2.5-4.5) mg/dL Magnesium 2.0 (1.7-2.2) mg/dL Total Bilirubin 0.4 (0.2-1.3) mg/dL AST 36 (17-59) U/L ALT 35 (7-56) U/L Alkaline Phosphatase 199 H D (38-126) U/L Total Protein 5.4 L (5.8-8.3) g/dL Albumin 3.0 (3.0-4.8) g/dL Globulin 2.4 gm/dL Albumin/Globulin Ratio 1.3 (1.1-1.8) 10/26/17 10/26/17 10/26/17 Range/Units 16:25 16:25 16:18 WBC 56.8 H* (4.5-11.0) 10^3/ul RBC 4.05 (3.5-6.1) 10^6/uL Hgb 11.6 L (14.0-18.0) g/dL Hct 32.9 L (42.0-52.0) % MCV 81.2 (80.0-105.0) fl MCH 28.6 (25.0-35.0) pg MCHC 35.3 (31.0-37.0) g/dl RDW 14.6 H (11.5-14.5) % Plt Count 178 (120.0-450.0) 10^3/uL MPV 11.9 H (7.0-11.0) fl Gran % 88.0 H (50.0-68.0) % Lymph % (Auto) 6.4 L (22.0-35.0) % Garvin % (Auto) 5.5 (1.0-6.0) % Eos % (Auto) 0.0 L (1.5-5.0) % Baso % (Auto) 0.1 (0.0-3.0) % Gran # 49.97 H (1.4-6.5) Lymph # (Auto) 3.6 H (1.2-3.4) Garvin # (Auto) 3.1 H (0.1-0.6) Eos # (Auto) 0.0 (0.0-0.7) Baso # (Auto) 0.06 (0.0-2.0) K/mm3 PT (9.4-12.5) SECONDS INR APTT (25.1-36.5) Seconds Sodium 137 (132-148) mmol/L Potassium 4.1 (3.6-5.0) mmol/L Chloride 108 H (98-107) mmol/L Carbon Dioxide 18 L (21-33) mmol/L Anion Gap 15 (10-20) BUN 12 (7-21) mg/dL Creatinine 0.5 L (0.8-1.5) mg/dl Est GFR ( Amer) > 60 Est GFR (Non-Af Amer) > 60 POC Glucose (mg/dL) 279 H (65-110) mg/dL Random Glucose 283 H (70-110) mg/dL Lactic Acid (0.7-2.1) mmol/L Calcium 8.3 L (8.4-10.5) mg/dL Phosphorus (2.5-4.5) mg/dL Magnesium (1.7-2.2) mg/dL Total Bilirubin (0.2-1.3) mg/dL AST (17-59) U/L ALT (7-56) U/L Alkaline Phosphatase (38-126) U/L Total Protein (5.8-8.3) g/dL Albumin (3.0-4.8) g/dL Globulin gm/dL Albumin/Globulin Ratio (1.1-1.8) 0810/26/17 10/26/17 Range/Units 11:01 09:30 09:07 WBC (4.5-11.0) 10^3/ul RBC (3.5-6.1) 10^6/uL Hgb (14.0-18.0) g/dL Hct (42.0-52.0) % MCV (80.0-105.0) fl MCH (25.0-35.0) pg MCHC (31.0-37.0) g/dl RDW (11.5-14.5) % Plt Count (120.0-450.0) 10^3/uL MPV (7.0-11.0) fl Gran % (50.0-68.0) % Lymph % (Auto) (22.0-35.0) % Garvin % (Auto) (1.0-6.0) % Eos % (Auto) (1.5-5.0) % Baso % (Auto) (0.0-3.0) % Gran # (1.4-6.5) Lymph # (Auto) (1.2-3.4) Garvin # (Auto) (0.1-0.6) Eos # (Auto) (0.0-0.7) Baso # (Auto) (0.0-2.0) K/mm3 PT (9.4-12.5) SECONDS INR APTT (25.1-36.5) Seconds Sodium (132-148) mmol/L Potassium (3.6-5.0) mmol/L Chloride (98-107) mmol/L Carbon Dioxide (21-33) mmol/L Anion Gap (10-20) BUN (7-21) mg/dL Creatinine (0.8-1.5) mg/dl Est GFR ( Amer) Est GFR (Non-Af Amer) POC Glucose (mg/dL) 160 H 153 H (65-110) mg/dL Random Glucose (70-110) mg/dL Lactic Acid 1.5 (0.7-2.1) mmol/L Calcium (8.4-10.5) mg/dL Phosphorus (2.5-4.5) mg/dL Magnesium (1.7-2.2) mg/dL Total Bilirubin (0.2-1.3) mg/dL AST (17-59) U/L ALT (7-56) U/L Alkaline Phosphatase (38-126) U/L Total Protein (5.8-8.3) g/dL Albumin (3.0-4.8) g/dL Globulin gm/dL Albumin/Globulin Ratio (1.1-1.8) 10/26/17 10/26/17 10/26/17 Range/Units 07:58 07:50 06:17 WBC (4.5-11.0) 10^3/ul RBC (3.5-6.1) 10^6/uL Hgb (14.0-18.0) g/dL Hct (42.0-52.0) % MCV (80.0-105.0) fl MCH (25.0-35.0) pg MCHC (31.0-37.0) g/dl RDW (11.5-14.5) % Plt Count (120.0-450.0) 10^3/uL MPV (7.0-11.0) fl Gran % (50.0-68.0) % Lymph % (Auto) (22.0-35.0) % Garvin % (Auto) (1.0-6.0) % Eos % (Auto) (1.5-5.0) % Baso % (Auto) (0.0-3.0) % Gran # (1.4-6.5) Lymph # (Auto) (1.2-3.4) Garvin # (Auto) (0.1-0.6) Eos # (Auto) (0.0-0.7) Baso # (Auto) (0.0-2.0) K/mm3 PT (9.4-12.5) SECONDS INR APTT (25.1-36.5) Seconds Sodium 143 (132-148) mmol/L Potassium 3.5 L (3.6-5.0) mmol/L Chloride 111 H (98-107) mmol/L Carbon Dioxide 20 L (21-33) mmol/L Anion Gap 15 (10-20) BUN 12 (7-21) mg/dL Creatinine 0.6 L (0.8-1.5) mg/dl Est GFR ( Amer) > 60 Est GFR (Non-Af Amer) > 60 POC Glucose (mg/dL) 151 H 146 H (65-110) mg/dL Random Glucose 160 H (70-110) mg/dL Lactic Acid (0.7-2.1) mmol/L Calcium 8.5 (8.4-10.5) mg/dL Phosphorus 1.2 L* (2.5-4.5) mg/dL Magnesium 1.6 L (1.7-2.2) mg/dL Total Bilirubin 0.6 (0.2-1.3) mg/dL AST 21 (17-59) U/L ALT 29 (7-56) U/L Alkaline Phosphatase 135 H D (38-126) U/L Total Protein 4.9 L (5.8-8.3) g/dL Albumin 2.8 L (3.0-4.8) g/dL Globulin 2.2 gm/dL Albumin/Globulin Ratio 1.3 (1.1-1.8) 10/26/17 10/26/17 10/26/17 Range/Units 05:13 03:43 03:33 WBC (4.5-11.0) 10^3/ul RBC (3.5-6.1) 10^6/uL Hgb (14.0-18.0) g/dL Hct (42.0-52.0) % MCV (80.0-105.0) fl MCH (25.0-35.0) pg MCHC (31.0-37.0) g/dl RDW (11.5-14.5) % Plt Count (120.0-450.0) 10^3/uL MPV (7.0-11.0) fl Gran % (50.0-68.0) % Lymph % (Auto) (22.0-35.0) % Garvin % (Auto) (1.0-6.0) % Eos % (Auto) (1.5-5.0) % Baso % (Auto) (0.0-3.0) % Gran # (1.4-6.5) Lymph # (Auto) (1.2-3.4) Garvin # (Auto) (0.1-0.6) Eos # (Auto) (0.0-0.7) Baso # (Auto) (0.0-2.0) K/mm3 PT (9.4-12.5) SECONDS INR APTT (25.1-36.5) Seconds Sodium (132-148) mmol/L Potassium (3.6-5.0) mmol/L Chloride (98-107) mmol/L Carbon Dioxide (21-33) mmol/L Anion Gap (10-20) BUN (7-21) mg/dL Creatinine (0.8-1.5) mg/dl Est GFR ( Amer) Est GFR (Non-Af Amer) POC Glucose (mg/dL) 184 H 175 H 181 H (65-110) mg/dL Random Glucose (70-110) mg/dL Lactic Acid (0.7-2.1) mmol/L Calcium (8.4-10.5) mg/dL Phosphorus (2.5-4.5) mg/dL Magnesium (1.7-2.2) mg/dL Total Bilirubin (0.2-1.3) mg/dL AST (17-59) U/L ALT (7-56) U/L Alkaline Phosphatase (38-126) U/L Total Protein (5.8-8.3) g/dL Albumin (3.0-4.8) g/dL Globulin gm/dL Albumin/Globulin Ratio (1.1-1.8) 10/25/17 10/25/17 10/25/17 Range/Units 13:27 11:02 09:46 WBC (4.5-11.0) 10^3/ul RBC (3.5-6.1) 10^6/uL Hgb (14.0-18.0) g/dL Hct (42.0-52.0) % MCV (80.0-105.0) fl MCH (25.0-35.0) pg MCHC (31.0-37.0) g/dl RDW (11.5-14.5) % Plt Count (120.0-450.0) 10^3/uL MPV (7.0-11.0) fl Gran % (50.0-68.0) % Lymph % (Auto) (22.0-35.0) % Garvin % (Auto) (1.0-6.0) % Eos % (Auto) (1.5-5.0) % Baso % (Auto) (0.0-3.0) % Gran # (1.4-6.5) Lymph # (Auto) (1.2-3.4) Garvin # (Auto) (0.1-0.6) Eos # (Auto) (0.0-0.7) Baso # (Auto) (0.0-2.0) K/mm3 PT (9.4-12.5) SECONDS INR APTT (25.1-36.5) Seconds Sodium (132-148) mmol/L Potassium (3.6-5.0) mmol/L Chloride (98-107) mmol/L Carbon Dioxide (21-33) mmol/L Anion Gap (10-20) BUN (7-21) mg/dL Creatinine (0.8-1.5) mg/dl Est GFR ( Amer) Est GFR (Non-Af Amer) POC Glucose (mg/dL) 252 H 196 H 163 H (65-110) mg/dL Random Glucose (70-110) mg/dL Lactic Acid (0.7-2.1) mmol/L Calcium (8.4-10.5) mg/dL Phosphorus (2.5-4.5) mg/dL Magnesium (1.7-2.2) mg/dL Total Bilirubin (0.2-1.3) mg/dL AST (17-59) U/L ALT (7-56) U/L Alkaline Phosphatase (38-126) U/L Total Protein (5.8-8.3) g/dL Albumin (3.0-4.8) g/dL Globulin gm/dL Albumin/Globulin Ratio (1.1-1.8) 10/25/17 10/25/17 10/25/17 Range/Units 07:42 07:06 05:59 WBC (4.5-11.0) 10^3/ul RBC (3.5-6.1) 10^6/uL Hgb (14.0-18.0) g/dL Hct (42.0-52.0) % MCV (80.0-105.0) fl MCH (25.0-35.0) pg MCHC (31.0-37.0) g/dl RDW (11.5-14.5) % Plt Count (120.0-450.0) 10^3/uL MPV (7.0-11.0) fl Gran % (50.0-68.0) % Lymph % (Auto) (22.0-35.0) % Garvin % (Auto) (1.0-6.0) % Eos % (Auto) (1.5-5.0) % Baso % (Auto) (0.0-3.0) % Gran # (1.4-6.5) Lymph # (Auto) (1.2-3.4) Garvin # (Auto) (0.1-0.6) Eos # (Auto) (0.0-0.7) Baso # (Auto) (0.0-2.0) K/mm3 PT (9.4-12.5) SECONDS INR APTT (25.1-36.5) Seconds Sodium (132-148) mmol/L Potassium (3.6-5.0) mmol/L Chloride (98-107) mmol/L Carbon Dioxide (21-33) mmol/L Anion Gap (10-20) BUN (7-21) mg/dL Creatinine (0.8-1.5) mg/dl Est GFR ( Amer) Est GFR (Non-Af Amer) POC Glucose (mg/dL) 145 H 169 H 173 H (65-110) mg/dL Random Glucose (70-110) mg/dL Lactic Acid (0.7-2.1) mmol/L Calcium (8.4-10.5) mg/dL Phosphorus (2.5-4.5) mg/dL Magnesium (1.7-2.2) mg/dL Total Bilirubin (0.2-1.3) mg/dL AST (17-59) U/L ALT (7-56) U/L Alkaline Phosphatase (38-126) U/L Total Protein (5.8-8.3) g/dL Albumin (3.0-4.8) g/dL Globulin gm/dL Albumin/Globulin Ratio (1.1-1.8) 10/25/17 10/25/17 10/25/17 Range/Units 04:53 03:54 03:06 WBC (4.5-11.0) 10^3/ul RBC (3.5-6.1) 10^6/uL Hgb (14.0-18.0) g/dL Hct (42.0-52.0) % MCV (80.0-105.0) fl MCH (25.0-35.0) pg MCHC (31.0-37.0) g/dl RDW (11.5-14.5) % Plt Count (120.0-450.0) 10^3/uL MPV (7.0-11.0) fl Gran % (50.0-68.0) % Lymph % (Auto) (22.0-35.0) % Garvin % (Auto) (1.0-6.0) % Eos % (Auto) (1.5-5.0) % Baso % (Auto) (0.0-3.0) % Gran # (1.4-6.5) Lymph # (Auto) (1.2-3.4) Garvin # (Auto) (0.1-0.6) Eos # (Auto) (0.0-0.7) Baso # (Auto) (0.0-2.0) K/mm3 PT (9.4-12.5) SECONDS INR APTT (25.1-36.5) Seconds Sodium (132-148) mmol/L Potassium (3.6-5.0) mmol/L Chloride (98-107) mmol/L Carbon Dioxide (21-33) mmol/L Anion Gap (10-20) BUN (7-21) mg/dL Creatinine (0.8-1.5) mg/dl Est GFR ( Amer) Est GFR (Non-Af Amer) POC Glucose (mg/dL) 226 H 251 H 295 H (65-110) mg/dL Random Glucose (70-110) mg/dL Lactic Acid (0.7-2.1) mmol/L Calcium (8.4-10.5) mg/dL Phosphorus (2.5-4.5) mg/dL Magnesium (1.7-2.2) mg/dL Total Bilirubin (0.2-1.3) mg/dL AST (17-59) U/L ALT (7-56) U/L Alkaline Phosphatase (38-126) U/L Total Protein (5.8-8.3) g/dL Albumin (3.0-4.8) g/dL Globulin gm/dL Albumin/Globulin Ratio (1.1-1.8) Laboratory Results - last 24 hr 10/25/17 10/25/17 10/25/17 03:06 03:54 04:53 WBC RBC Hgb Hct MCV MCH MCHC RDW Plt Count MPV Gran % Lymph % (Auto) Garvin % (Auto) Eos % (Auto) Baso % (Auto) Gran # Lymph # (Auto) Garvin # (Auto) Eos # (Auto) Baso # (Auto) PT INR APTT Sodium Potassium Chloride Carbon Dioxide Anion Gap BUN Creatinine Est GFR ( Amer) Est GFR (Non-Af Amer) POC Glucose (mg/dL) 295 H 251 H 226 H Random Glucose Lactic Acid Calcium Phosphorus Magnesium Total Bilirubin AST ALT Alkaline Phosphatase Total Protein Albumin Globulin Albumin/Globulin Ratio 10/25/17 10/25/17 10/25/17 05:59 07:06 07:42 WBC RBC Hgb Hct MCV MCH MCHC RDW Plt Count MPV Gran % Lymph % (Auto) Garvin % (Auto) Eos % (Auto) Baso % (Auto) Gran # Lymph # (Auto) Garvin # (Auto) Eos # (Auto) Baso # (Auto) PT INR APTT Sodium Potassium Chloride Carbon Dioxide Anion Gap BUN Creatinine Est GFR ( Amer) Est GFR (Non-Af Amer) POC Glucose (mg/dL) 173 H 169 H 145 H Random Glucose Lactic Acid Calcium Phosphorus Magnesium Total Bilirubin AST ALT Alkaline Phosphatase Total Protein Albumin Globulin Albumin/Globulin Ratio 10/25/17 10/25/17 10/25/17 09:46 11:02 13:27 WBC RBC Hgb Hct MCV MCH MCHC RDW Plt Count MPV Gran % Lymph % (Auto) Garvin % (Auto) Eos % (Auto) Baso % (Auto) Gran # Lymph # (Auto) Garvin # (Auto) Eos # (Auto) Baso # (Auto) PT INR APTT Sodium Potassium Chloride Carbon Dioxide Anion Gap BUN Creatinine Est GFR ( Amer) Est GFR (Non-Af Amer) POC Glucose (mg/dL) 163 H 196 H 252 H Random Glucose Lactic Acid Calcium Phosphorus Magnesium Total Bilirubin AST ALT Alkaline Phosphatase Total Protein Albumin Globulin Albumin/Globulin Ratio 10/26/17 10/26/17 10/26/17 03:33 03:43 05:13 WBC RBC Hgb Hct MCV MCH MCHC RDW Plt Count MPV Gran % Lymph % (Auto) Garvin % (Auto) Eos % (Auto) Baso % (Auto) Gran # Lymph # (Auto) Garvin # (Auto) Eos # (Auto) Baso # (Auto) PT INR APTT Sodium Potassium Chloride Carbon Dioxide Anion Gap BUN Creatinine Est GFR ( Amer) Est GFR (Non-Af Amer) POC Glucose (mg/dL) 181 H 175 H 184 H Random Glucose Lactic Acid Calcium Phosphorus Magnesium Total Bilirubin AST ALT Alkaline Phosphatase Total Protein Albumin Globulin Albumin/Globulin Ratio 10/26/17 10/26/17 10/26/17 06:17 07:50 07:58 WBC RBC Hgb Hct MCV MCH MCHC RDW Plt Count MPV Gran % Lymph % (Auto) Garvin % (Auto) Eos % (Auto) Baso % (Auto) Gran # Lymph # (Auto) Garvin # (Auto) Eos # (Auto) Baso # (Auto) PT INR APTT Sodium 143 Potassium 3.5 L Chloride 111 H Carbon Dioxide 20 L Anion Gap 15 BUN 12 Creatinine 0.6 L Est GFR ( Amer) > 60 Est GFR (Non-Af Amer) > 60 POC Glucose (mg/dL) 146 H 151 H Random Glucose 160 H Lactic Acid Calcium 8.5 Phosphorus 1.2 L* Magnesium 1.6 L Total Bilirubin 0.6 AST 21 ALT 29 Alkaline Phosphatase 135 H D Total Protein 4.9 L Albumin 2.8 L Globulin 2.2 Albumin/Globulin Ratio 1.3 10/26/17 10/26/17 10/26/17 09:07 09:30 11:01 WBC RBC Hgb Hct MCV MCH MCHC RDW Plt Count MPV Gran % Lymph % (Auto) Garvin % (Auto) Eos % (Auto) Baso % (Auto) Gran # Lymph # (Auto) Garvin # (Auto) Eos # (Auto) Baso # (Auto) PT INR APTT Sodium Potassium Chloride Carbon Dioxide Anion Gap BUN Creatinine Est GFR ( Amer) Est GFR (Non-Af Amer) POC Glucose (mg/dL) 153 H 160 H Random Glucose Lactic Acid 1.5 Calcium Phosphorus Magnesium Total Bilirubin AST ALT Alkaline Phosphatase Total Protein Albumin Globulin Albumin/Globulin Ratio 10/26/17 10/26/17 10/26/17 16:18 16:25 16:25 WBC 56.8 H* RBC 4.05 Hgb 11.6 L Hct 32.9 L MCV 81.2 MCH 28.6 MCHC 35.3 RDW 14.6 H Plt Count 178 MPV 11.9 H Gran % 88.0 H Lymph % (Auto) 6.4 L Garvin % (Auto) 5.5 Eos % (Auto) 0.0 L Baso % (Auto) 0.1 Gran # 49.97 H Lymph # (Auto) 3.6 H Garvin # (Auto) 3.1 H Eos # (Auto) 0.0 Baso # (Auto) 0.06 PT INR APTT Sodium 137 Potassium 4.1 Chloride 108 H Carbon Dioxide 18 L Anion Gap 15 BUN 12 Creatinine 0.5 L Est GFR ( Amer) > 60 Est GFR (Non-Af Amer) > 60 POC Glucose (mg/dL) 279 H Random Glucose 283 H Lactic Acid Calcium 8.3 L Phosphorus Magnesium Total Bilirubin AST ALT Alkaline Phosphatase Total Protein Albumin Globulin Albumin/Globulin Ratio 10/27/17 10/27/17 10/27/17 05:30 05:30 05:30 WBC 40.0 H* D RBC 4.20 Hgb 11.8 L Hct 34.4 L MCV 81.9 MCH 28.1 MCHC 34.3 RDW 15.0 H Plt Count 201 MPV 13.0 H Gran % 89.3 H Lymph % (Auto) 8.0 L Garvin % (Auto) 2.5 Eos % (Auto) 0.1 L Baso % (Auto) 0.1 Gran # 35.67 H Lymph # (Auto) 3.2 Garvin # (Auto) 1.0 H Eos # (Auto) 0.1 Baso # (Auto) 0.05 PT 12.2 INR 1.06 APTT 40.9 H Sodium 139 Potassium 4.0 Chloride 107 Carbon Dioxide 21 Anion Gap 15 BUN 12 Creatinine 0.6 L Est GFR ( Amer) > 60 Est GFR (Non-Af Amer) > 60 POC Glucose (mg/dL) Random Glucose 259 H Lactic Acid Calcium 8.4 Phosphorus 1.7 L Magnesium 2.0 Total Bilirubin 0.4 AST 36 ALT 35 Alkaline Phosphatase 199 H D Total Protein 5.4 L Albumin 3.0 Globulin 2.4 Albumin/Globulin Ratio 1.3 Critical Care Progress Note - Nutrition Nutrition: Nutrition Category Date Time Status Heart Healthy Diet [DIET] Diets 10/26/17 Lunch Active Attending/Attestation - Attestation I have personally seen and examined this patient.: Yes I have fully participated in the care of the patient.: Yes I have reviewed all pertinent clinical information: Yes Notes (Text): 10/27/17 08:[address] Conway note
[2017-10-26] MEDS: Insulin Lispro (humaLOG) LOW Coverage SC SCH (21:48)
[2017-10-26] MEDS: Insulin Detemir 100 units/ml Vial (Levemir) SC SCH (21:51)
[2017-10-26] MEDS ORDERED: Insulin Detemir 100 units/ml Vial (Levemir) SC SCH (22:00)
--- NOTE | 2017-10-26 23:47 | CP.PCM.PN ---
Subjective - Date & Time of Evaluation Date of Evaluation: 10/26/17 Time of Evaluation: 23:38 - Subjective Subjective: Infectious Disease Follow Up: October 26, 2017 41 yo male with extensive PMHx that includes Factor V Leiden s/p DVTs/PEs/IVC filter/L ventricular thrombectomy (2004) on Coumadin, HTN, DM, CHF s/p AICD placement, AICD replacement 2/2 infected hardware (May 2017 at [facility] as per patient), psoriatic arthritis, HLD, and splenectomy (2003) who presents with complaint of shortness of breath and left-sided chest pain x3 days. As per patient, he started to feel unwell 3 weeks ago after receiving last Cosentyn injection. He apparently received Bentyl and Prednisone for 5 days with 10 days of Augmentin. No improvement. Had SOB at home and high glucose levels above 400. Claimed poor oral intake. Elevated trop in ER here at [facility]. Question of medication compliance as the patient's pharmacy has several medications listed there that have not been filled in the past year. Tachcardia under control today. Still with episodes of hypotension. Remains on Vancomycin and Cefepime for antibiotic coverage. Cultures are still pending. Blood cultures showing gram positive cocci. Verigene suggesting Streptococci. Objective - Vital Signs/Intake and Output Vital Signs (last 24 hours): Temp Pulse Resp BP Pulse Ox 98.8 F 84 34 H 120/65 89 L 10/26/17 20:00 10/26/17 22:34 10/26/17 22:34 10/26/17 22:00 10/26/17 20:00 Intake and Output: 10/26/17 10/27/17 18:59 06:59 Intake Total 1400 Output Total 600 Balance 800 - Medications Medications: Current Medications Acetaminophen (Tylenol 325mg Tab) 650 mg PO Q6H PRN PRN Reason: Temperature Last Admin: 10/25/17 18:18 Dose: 650 mg Albuterol Sulfate (Albuterol 0.083% Inhal Siha (2.5 Mg/3 Ml) Ud) 2.5 mg INH [id number] PRN PRN Reason: Shortness of Breath Aspirin (Aspirin Chewable) 81 mg PO DAILY [facility] Last Admin: 10/26/17 10:41 Dose: 81 mg Atorvastatin Calcium (Lipitor) 20 mg PO DIN [facility] Last Admin: 10/26/17 16:35 Dose: 20 mg Carvedilol (Coreg) 3.125 mg PO 0800,1800 LA Heparin Sodium/Sodium Chloride (Heparin 46778 Units/250ml 1/2 Normal Saline) 25 ,000 units in 250 mls @ 14.288 mls/hr IV .[id number] LA; 18 UNITS/KG/HR PRN Reason: Protocol Last Admin: 10/26/17 07:01 Dose: 23 units/kg/hr, 18.257 mls/hr Vancomycin HCl (Vancomycin 1gm) 1 gm in 250 mls @ 167 mls/hr IVPB 0600,1800 LA PRN Reason: Protocol Last Admin: 10/26/17 17:59 Dose: 167 mls/hr Norepinephrine Bitartrate 8 mg (/ Sodium Chloride) 508 mls @ 15.24 mls/hr IV .Q24H PRN; Protocol; 4 MCG/MIN PRN Reason: TITRATE PER MD ORDER Last Titration: 10/26/17 09:00 Dose: 0 mcg/min, 0 mls/hr Dobutamine HCl/Dextrose (Dobutamine/Dextrose 5% 500mg/250ml) 500 mg in 250 mls @ 4.714 mls/hr IV .Q24H PRN; Protocol; 2 MCG/KG/MIN PRN Reason: TITRATE PER PROTOCOL Last Admin: 10/26/17 10:41 Dose: 2 mcg/kg/min, 4.714 mls/hr Ceftriaxone Sodium (Rocephin 1 Gram Ivpb) 1 gm in 100 mls @ 100 mls/hr IVPB DAILY LA PRN Reason: Protocol Last Admin: 10/26/17 16:36 Dose: 100 mls/hr Insulin Detemir (Levemir) 40 unit SC HS LA Last Admin: 10/26/17 21:51 Dose: 40 units Insulin Human Lispro (Humalog Low) 0 units SC ACHS LA PRN Reason: Protocol Last Admin: 10/26/17 21:48 Dose: 3 units Insulin Lispro Protam/Lispro Human (Humalog Mix 75/25) 14 units SC ACB LA Insulin Lispro Protam/Lispro Human (Humalog Mix 75/25) 10 units SC ACD LA Lidocaine (Lidoderm) 1 ea TD DAILY LA Last Admin: 10/26/17 10:41 Dose: 1 ea Oxycodone/Acetaminophen (Percocet 5/325 Mg Tab) 1 tab PO Q6H PRN PRN Reason: Pain, moderate (4-7) Stop: 10/29/17 19:57 Last Admin: 10/26/17 20:33 Dose: 1 tab Pantoprazole Sodium (Protonix Ec Tab) 40 mg PO 0600 LA Last Admin: 10/26/17 07:00 Dose: 40 mg - Labs Labs: 10/26/17 16:25 10/26/17 16:25 PT 13.7 SECONDS (9.4-12.5) H 10/25/17 05:30 INR 1.19 10/25/17 05:30 APTT 61.5 Seconds (25.1-36.5) H 10/26/17 07:58 - Constitutional Appears: Chronically Ill - Head Exam Head Exam: ATRAUMATIC, NORMOCEPHALIC - Eye Exam Eye Exam: EOMI, PERRL Pupil Exam: NORMAL ACCOMODATION, PERRL - ENT Exam ENT Exam: Mucous Membranes Moist, Normal External Ear Exam, TM's Normal Bilaterally - Neck Exam Neck Exam: Full ROM, Normal Inspection - Respiratory Exam Respiratory Exam: Clear to Ausculation Bilateral, NORMAL BREATHING PATTERN. absent: Rales, Rhonchi, Wheezes - Cardiovascular Exam Cardiovascular Exam: REGULAR RHYTHM, RRR, +S1, +S2 - GI/Abdominal Exam GI & Abdominal Exam: Soft, Normal Bowel Sounds. absent: Distended, Tenderness - Extremities Exam Extremities Exam: Full ROM, Normal Inspection - Neurological Exam Neurological Exam: Alert, Awake, CN II-XII Intact, Oriented x3 - Psychiatric Exam Psychiatric exam: Flat Affect - Skin Skin Exam: Intact, Normal Color Assessment and Plan - Assessment and Plan (Free Text) Assessment: 41 yo male with vague complaints of feeling unwell with significant leukocytosis of 29. Extensive PMHx of L ventricular thromboectomy (2003), R Femur fracture repair (2003), IVC filter placement, arthoscopic debridement, synovectomy for right septic knee joint, splenectomy 2003, tonsillectomy 2016, AICD placement, AICD removal and replacement (2/2 infected hardware). The patient with complaints of SOB and left sided chest pain. No specific findings of the Chest X-ray. Supportive care. Continued on Cefepime and IV Vancomycin at this time. If symptoms do not improve or culture results return, may need to consider escalating antibiotic of Cefepime to Meropenem in the next 24-48 hours. Although not tachycardia today, the patient still has hypotensive episodes. Will give a single dose of Gentamicin at this time. Leukocytosis of 43 today. Broad spectrum antibiotics for sepsis of unclear source. Cultures are showing gram positive diplococci. Possible Streptococci. On IV Vancomycin and Cefepime. Lund cultures. May need further imaging studies with CT scan. CT angio negative for PE. CT abdomen and pelvis was unremarkable. Thank you for allowing me to participate in the care of the patient, we will follow with you.
--- NOTE | 2017-10-27 03:43 | CON ---
Copied To: Jodi Burrows MD Attending MD: Jodi Burrows MD DATE: 10/26/2017 ENDOCRINOLOGY CONSULT LOCATION: In [facility]U [facility], room 2. HISTORY OF PRESENT ILLNESS: This is a 41-year-old male with known history of type 2 insulin-requiring diabetes with significant coagulopathy, presenting here with progressive shortness of breath and supervening chest pain and is now being referred for diabetic evaluation because of marked hyperglycemic accelerations as noted thereof. PAST MEDICAL HISTORY: As mentioned above, history of type 2 insulin-requiring diabetes, currently on a combination of Humalog 75/25 given as 40 units b.i.d. with Lantus given as 40 units at bedtime; history of hypertensive cardiovascular disease and dyslipidemia; history of coronary artery disease and dilated cardiomyopathy with a subsequent AICD placement and insertion undertaken thereof; he also has significant factor VII Leiden coagulopathy with multiple episodes of deep vein thrombosis and pulmonary embolism, currently on oral anticoagulation therapy; he also has previous ventricular thrombectomy and IVC filter insertion as noted; history of hypertension and dyslipidemia; history of psoriatic arthritis and diffuse osteoarthritis with a previous debridement and joint procedures in the right knee area; he also had a right femoral fracture in the past. FAMILY HISTORY: Positive for hypertension and heart disease. SOCIAL HISTORY: He had a previous longstanding history of chronic alcoholism and also polysubstance drug abuse as noted. He has supportive family otherwise. REVIEW OF SYSTEMS: As mentioned above, admits to generalized body weakness with easy fatigability and tiredness and suboptimal energy level; also admits to episodic bouts of dizziness and lightheadedness, worse on the day of admission. He admits to insomnia with disruptive sleep patterns and occasional bifrontal headaches and visual blurring as noted. As mentioned above, admits to sudden onset of precordial chest pain with progressive shortness of breath, initially on exertion and then at rest occurring about 3 to 4 days prior to admission and worse on the day of admission. His oral intake has been variable with nausea, dyspepsia and vague upper abdominal pains, also admits to marked polyuria, nocturia and polydipsia as noted. PHYSICAL EXAMINATION: GENERAL: This is an average built male in no apparent distress. VITAL SIGNS: Blood pressure of 140/80; pulse of 100 beats per minute, regular; temperature 98; respirations 20. Height is 5 feet 8 inches, weight is 173 pounds. HEENT: Head normocephalic. Eyes: Anicteric with pink conjunctivae. Funduscopy not possible at this time. Ears, nose and throat otherwise normal. NECK: Supple. Thyroid gland is normal sized. No carotid bruits or cervical adenopathy. CARDIOPULMONARY: Some adynamic precordium. S1, S2 is rapid and regular. LUNGS: Clear to auscultation. ABDOMEN: Flat, soft with positive bowel sounds. EXTREMITIES: No peripheral edema. Pulses are +2 bilaterally. LABORATORY DATA: His hemoglobin A1c is 9.3%. The latest chemistry showed a BUN of 12, sodium 137, potassium 4.1, chloride 108, CO2 of 18, glucose 283 and creatinine 0.5. ASSESSMENT: This is a 41-year-old male with uncontrolled and decompensated type 2 insulin-requiring diabetes presenting here with chest pain and shortness of breath and concomitant hyperosmolar hyperglycemic state and mild ketosis and is now being referred for diabetic evaluation and management. PLAN OF MANAGEMENT: We will continue, but modify the basal insulin to a higher dose of Levemir given as 24 units subcu at bedtime daily to start tonight. We will restart his premixed insulin regimen with Humalog 75/25 given as 14 units before breakfast and 10 units before dinner and we will titrate incrementally as indicated to optimize metabolic control. We will modify the coverage scale to obviate hypoglycemia and detailed orders have been given. We will obtain serial chemistries and supplement accordingly needed. We will follow. Jodi Burrows MD
[2017-10-27] MEDS: Vancomycin 1gm in NS 250ml 1 GM/250 ML BAG IVPB SCH ×2 (05:06→17:21)
[2017-10-27] MEDS: Pantoprazole 40 mg EC Tab PO SCH (06:17)
[2017-10-27] MEDS: Oxycodone/Acetaminophen 5/325 mg Tab PO PRN ×2 (06:17→19:42)
--- NOTE | 2017-10-27 06:30 | PN ---
Copied To: Aaron Conway MD Attending MD: Aaron Conway MD DATE: 10/26/2017 SUBJECTIVE: The patient is seen and examined at bedside. He continues to be doing better. His pleuritic chest pain substantially improved compared with a few days ago when I first saw him. Patient had low blood pressure in the morning and dobutamine was started in light of his worsening ejection fraction that was found on echocardiogram yesterday. Patient responded to dobutamine quite well. His blood pressure improved from 80 systolic to 103 systolic. Patient tolerates oral nutrition and hydration well. Talks full sentences. Not in respiratory or otherwise distress. PHYSICAL EXAMINATION: VITAL SIGNS: Heart rate 89, respiratory rate 18, oxygen saturation 99% on room air, blood pressure 103/45 with mean arterial pressure of 67. HEENT: Head and neck atraumatic. LUNGS: Clear to auscultation bilaterally. HEART: Regular rate and rhythm. S1 and S2 normal. ABDOMEN: Soft, nontender, nondistended. MUSCULOSKELETAL: No C/C/E. NEUROLOGIC: The patient moves all extremities spontaneously. SKIN: Moist. PSYCHIATRIC: The patient is alert, awake and oriented x3. LABORATORY DATA: WBC 64.8, hemoglobin 11.6, platelet count 165. Sodium 143, potassium 3.5, chloride 111, carbon dioxide 20, BUN 12, creatinine 0.6, lactic acid 1.5. AST 21, ALT 29. Phosphorous 1.2, magnesium 1.6. PTT 61.5. MEDICATIONS: Tylenol p.r.n., DuoNeb p.r.n., aspirin, Lipitor, dobutamine, heparin drip, regular insulin sliding scale high protocol, cefepime, Protonix, potassium supplementation, vancomycin. ASSESSMENT AND PLAN: This is a 41-year-old gentleman with history of intermittent fever with T-max 105 yesterday and significantly rising leukocytosis, in the absence of clear-cut source of infection. As such, CAT scan of the abdomen and pelvis is negative for intraabdominal pathology. CT of chest did not reveal either pulmonary embolism or potential infiltrate/consolidation. Urinalysis was negative for leukocyte esterase and nitrites. I discussed the situation with LUCINDA, Dr. De León. Patient remains on empiric antibiotics for now. However, infectious etiology of his fever and leukocytosis is now in question. I spoke with Dr. Treadwell who will see the patient, and flow cytometry of peripheral blood was also sent. The other important part of puzzle is drop in ejection fraction based on yesterday's echocardiogram compared with echo that was done several months ago. I spoke with Dr. Santoyo, and he is uncomfortable to do cardiac catheterization in the setting of undulating fevers and substantial rise in leukocytosis. If Infectious Disease clears him from infectious etiology of his above symptoms and Hematology Service wont provide answer that would help put all pieces of puzzles together (? hematologic malignancy), I will re-address issue of cardiac catheterization with Dr. Santoyo again. Meanwhile, we will continue with dobutamine, conservative fluid management. I agree with aspirin, statins. Beta-kg is on hold as patient is on dobutamine. We will continue to target euvolemia, euglycemia, normothermia and oxygen saturation more than 90%. We will continue with deep venous thrombosis and gastrointestinal prophylaxes. Addendum: Blood culture returned positive for GPC in chains (strep?)-->that might explain high fever and rising leukocytosis, even though original source is still unclear. Speciation is pending. Spoke with Dr. De León-->switch from cefepime to ceftriaxone, otherwise continue vanco for now. ccm time 40 min Aaron Conway MD MTDD
[2017-10-27 06:33] LABS: BASO # 0.05 K/mm3 (0.0-2.0); BASO % 0.1 % (0.0-3.0); EOS # 0.1 (0.0-0.7); EOS % 0.1 % (1.5-5.0); GRAN # 35.67 (1.4-6.5); GRAN % 89.3 % (50.0-68.0); HEMOGLOBIN 11.8 g/dL (14.0-18.0); LYMPH # 3.2 (1.2-3.4); MEAN CELL VOLUME 81.9 fl (80.0-105.0); MEAN CORPUSCULAR HEMOGLOBIN 28.1 pg (25.0-35.0); MEAN CORPUSCULAR HGB CONC 34.3 g/dl (31.0-37.0); MONO % 2.5 % (1.0-6.0); RBC 4.2 10^6/uL (3.5-6.1)
[2017-10-27 06:59] LABS: INR 1.06; PARTIAL THROMBOPLASTIN TIME 40.9 Seconds (25.1-36.5); PROTHROMBIN TIME 12.2 SECONDS (9.4-12.5)
[2017-10-27 07:11] LABS: ALB/GLOB RATIO 1.3 (1.1-1.8); ALT/SGPT 35 U/L (7-56); AST/SGOT 36 U/L (17-59); BLOOD UREA NITROGEN 12 mg/dL (7-21); CALCIUM 8.4 mg/dL (8.4-10.5); GFR NON-AFRICAN AMERICAN > 60
[2017-10-27] MEDS ORDERED: Insulin Lispro (humaLOG) MIX 75/25(10 ml) SC SCH ×2 (07:30→16:30)
[2017-10-27] MEDS: Insulin Lispro (humaLOG) LOW Coverage SC SCH ×4 (08:00→21:39)
[2017-10-27] MEDS ORDERED: Potassium Phosphate 15 MMOLE in Sodium Chloride 0.9% 250 ML IVPB ONE (08:20)
--- NOTE | 2017-10-27 09:06 | PN ---
Copied To: Aaron Conway MD Attending MD: Aaron Conway MD DATE: 10/27/2017 SUBJECTIVE: The patient is seen and examined at bedside. He appears to be comfortable and talks full sentences. He is not in respiratory or otherwise distress. However, reports that last night, he still had this back pain in the upper torso and pain on deep inspiration. It is not radiating and it is not specifically localized to the spine area. It is 5/10 and sometimes sharp in nature. This is not new pain, however. As there is no clear-cut and identfiable etiology for pain based on available imaging studies and MRI may not be an option as patient has metalic implant in penis ( disclosed by patient when MRI discussed), will touch base with pain service for symptomatic relief. PHYSICAL EXAMINATION: VITAL SIGNS: Heart rate 88, respiratory rate 20, blood pressure 128/67, oxygen saturation 98% on room air. ENT: Head and neck atraumatic. LUNGS: Clear to auscultation bilaterally. HEART: Regular rate and rhythm. S1 and S2 normal. ABDOMEN: Soft, nontender and nondistended. MUSCULOSKELETAL: There is some tenderness in the left upper back area. There is no localized pain over the osseous processes of the vertebrae. There is no erythema or swelling in localized fashion anyway in the back. No C/C/E. NEURO: The patient moves all extremities spontaneously. SKIN: Moist. PSYCH: The patient is alert, awake and oriented x3. LABORATORY DATA: WBC 40, down from 56.8; hemoglobin of 11.8; platelet count 201, up from 178. Sodium 139; potassium 4; chloride 107; carbon dioxide 21, up from 18; BUN 12; creatinine 0.6; glucose 259 (Dr. Burrows saw the patient yesterday and her consult appreciated); AST 36; ALT 35; total bilirubin 0.4; phosphorus 1.7 (supplemented). MEDICATIONS: Tylenol p.r.n., DuoNeb p.r.n., aspirin, Lipitor, dobutamine, heparin drip, Levemir 40 units subcu at bedtime, insulin 75/25 at 14 units subcutaneous before breakfast, insulin lispro 75/25 at 10 units subcutaneous before breakfast and lispro insulin low protocol before meals and at bedtime, Lidoderm patch, Percocet p.r.n., Protonix, potassium phosphate, ceftriaxone, vancomycin. ASSESSMENT AND PLAN: This is a 41-year-old gentleman, who presented with severe sepsis secondary to Streptococcus bacteremia of unclear origin (CT abdomen, pelvis and chest did not reveal any source). While speciation is pending, the patient is on broad-spectrum antibiotics and to better examine TTE findings consideration was given to ROBYN in part to rule out infective endocarditis. The patient has metallic implant in his body (see above), thus MRI of the spine may not be safe. Whether or not that implant is MRI compatible is unclear at present time. Nevertheless, the patient is afebrile for about 48 hours and his leukocytosis is going down. I am concerned about his back pain; however, there is no clear-cut explanation for it. Will get pain service to evaluate. We will continue to target euvolemia , euglycemia, normothermia and oxygen saturation more than 90%. From my perspective, once ROBYN done and no complications observed, the patient can be transferred to telemetry floor. Addendum: Spoke with Dr. Santoyo-->ROBYN was postponed till Monday, ok to downgrade to telemetry ccm time 40 min Aaron Conway MD MTDD
[2017-10-27] MEDS: Lidocaine 5% Patch TD SCH (09:11)
[2017-10-27] MEDS: cefTRIAXone 1 gm 1 GM/100 ML BAG IVPB SCH (09:13)
[2017-10-27] MEDS: Heparin25000 units/250ml 1/2NS 25,000 UNITS/250 ML BAG IV SCH (09:15)
--- NOTE | 2017-10-27 12:07 | PN ---
Copied To: Jasbir Santoyo MD Attending MD: Jasbir Santoyo MD DATE: 10/27/2017 CARDIOLOGY FOLLOWUP SUBJECTIVE: The patient is awake and alert, in no distress. PHYSICAL EXAMINATION: VITAL SIGNS: Blood pressure is 119/69. NECK: Negative JVD. LUNGS: Without rales. HEART: S1 and S2. EXTREMITIES: Without change. LABORATORY DATA: White count is down to 40,000, hemoglobin is 11.8. Chemistries: BUN and creatinine unremarkable. Glucose is 259. Blood cultures are positive for Gram-positive cocci. IMPRESSION: 1. Dilated cardiomyopathy. 2. Coronary artery disease. 3. Marked sepsis with bacteremia. 4. Hypertension. 5. Diabetes mellitus. 6. History of implantable cardioverter-defibrillator placement. 7. Recent replacement of his implantable cardioverter-defibrillator secondary to infection. PLAN: Given these findings, the patient will need a ROBYN. I have discussed with the patient in detail. We will arrange for ROBYN next week. Jasbir Santoyo MD
--- NOTE | 2017-10-27 13:28 | CP.CCUPN ---
<Jasmin Sanford - Last Filed: 10/27/17 13:25> CCU Subjective - Physician Review Events Since Last Encounter (Free Text): 10/27/17 13:25 Patient seen and examined at bedside. Patient had acute complaints of back pain overnight, started on percocet. patient reports mild nonproductive cough, denies fevers, chills, nausea, vomiting, abdominal pain, leg swelling, urinary complaints. patient reports lower back pain 8/10, constant pain. CCU Objective - Vital Signs / Intake & Output Vital Signs (Last 4 hours): Vital Signs Temp Pulse Resp BP 10/27/17 12:00 98.4 F 130/78 10/27/17 11:59 87 16 10/27/17 10:00 71 22 Intake and Output (Last 8hrs): Intake & Output 10/26/17 10/27/17 10/27/17 22:59 06:59 14:59 Intake Total 1342 522 250 Output Total 600 700 Balance 742 -178 250 Intake: IV 892 522 250 Right Antecubital 400 Right Internal Jugular 522 abx 450 heparin 42 Oral 450 Output: Urine 600 700 Urine, Voided 600 700 Other: # Voids Urine, Voided 1 # Bowel Movements 1 - Physical Exam Head: Positive for: Atraumatic, Normocephalic Pupils: Positive for: PERRL Extroacular Muscles: Positive for: EOMI Conjunctiva: Positive for: Normal Mouth: Positive for: Moist Mucous Membranes Respiratory/Chest: Positive for: Clear to Auscultation (equal bilaterally), Good Air Exchange, Other (Midline scar appreciated from procedure; AICD placement scar - hyper pigmented in L axillary aspect of chest appreciated). Negative for: Respiratory Distress, Accessory Muscle Use, Wheezes, Rales, Rhonchi Cardiovascular: Positive for: Regular Rate and Rhythm, Normal S1, S2. Negative for: Murmurs Abdomen: Negative for: Tenderness, Distention, Peritoneal Signs Back: Positive for: Normal Inspection, Paraspinal Tenderness Upper Extremity: Positive for: Normal Inspection. Negative for: Cyanosis, Edema Lower Extremity: Positive for: Normal Inspection, NORMAL PULSES (distal pulses equal and strong). Negative for: Edema Neurological: Positive for: GCS=15, CN II-XII Intact, Speech Normal Skin: Positive for: Warm, Dry, Normal Color. Negative for: Rashes Psychiatric: Positive for: Alert, Oriented x 3, Normal Insight, Normal Concentration - Medications Active Medications: Active Medications Generic Name Dose Route Start Last Admin Trade Name Freq PRN Reason Stop Dose Admin Acetaminophen 650 mg 10/24/17 23:25 10/25/17 18:18 Tylenol 325mg Tab PO 650 mg Q6H PRN Administration Temperature Albuterol Sulfate 2.5 mg 10/24/17 18:01 Albuterol 0.083% Inhal Isha (2.5 Mg/3 Ml) Ud INH [id number] PRN Shortness of Breath Aspirin 81 mg 10/25/17 10:00 10/27/17 09:13 Aspirin Chewable PO 81 mg DAILY LA Administration Atorvastatin Calcium 20 mg 10/24/17 18:15 10/26/17 16:35 Lipitor PO 20 mg DIN LA Administration Carvedilol 3.125 mg 10/25/17 08:00 Coreg PO 0800,1800 [facility] Cyclobenzaprine HCl 5 mg 10/27/17 09:26 10/27/17 12:04 Flexeril PO 5 mg TID PRN Administration Pain, severe (8-10) Heparin Sodium/Sodium Chloride 25,000 units in 250 mls @ 14.288 mls/hr 17:55 10/27/17 09:15 Heparin 24515 Units/250ml 1/2 Normal Saline IV 25 units/kg/hr .[id number] LA 19.845 mls/hr Protocol Administration 18 UNITS/KG/HR Vancomycin HCl 1 gm in 250 mls @ 167 mls/hr 10/24/17 22:00 10/27/17 05:06 Vancomycin 1gm IVPB 167 mls/hr 0600,1800 [facility] Administration Protocol Norepinephrine Bitartrate 8 mg 508 mls @ 15.24 mls/hr 10/25/17 22:00 09:00 / Sodium Chloride IV 0 mcg/min .Q24H PRN 0 mls/hr TITRATE PER MD ORDER Titration Protocol 4 MCG/MIN Dobutamine HCl/Dextrose 500 mg in 250 mls @ 4.714 mls/hr 10/26/17 10:21 10/26 10:41 Dobutamine/Dextrose 5% 500mg/250ml IV 2 mcg/kg/min .Q24H PRN 4.714 mls/hr TITRATE PER PROTOCOL Administration Protocol 2 MCG/KG/MIN Ceftriaxone Sodium 1 gm in 100 mls @ 100 mls/hr 10/26/17 16:15 10/27/17 09:13 Rocephin 1 Gram Ivpb IVPB 100 mls/hr DAILY LA Administration Protocol Potassium Phosphate 15 mmole/ 255 mls @ 42.5 mls/hr 10/27/17 08:20 10/27/17 09:12 Sodium Chloride IVPB 10/27/17 14:19 42.5 mls/hr ONCE ONE Administration Insulin Detemir 40 unit 10/26/17 22:00 10/26/17 21:51 Levemir SC 40 units HS LA Administration Insulin Human Lispro 0 units 10/26/17 22:00 10/27/17 11:44 Humalog Low SC Not Given ACHS [facility] Protocol Insulin Lispro Protam/Lispro Human 14 units 10/27/17 07:30 10/27/17 09:10 Humalog Mix 75/25 SC 14 units ACB LA Administration Insulin Lispro Protam/Lispro Human 10 units 10/27/17 16:30 Humalog Mix 75/25 SC ACD LA Lidocaine 1 ea 10/26/17 10:30 10/27/17 09:11 Lidoderm TD 1 ea DAILY LA Administration Oxycodone/Acetaminophen 1 tab 10/26/17 19:56 10/27/17 06:17 Percocet 5/325 Mg Tab PO 10/29/17 19:57 1 tab Q6H PRN Administration Pain, moderate (4-7) Pantoprazole Sodium 40 mg 10/24/17 20:45 10/27/17 06:17 Protonix Ec Tab PO 40 mg 0600 LA Administration - Patient Studies Lab Studies: Microbiology Studies 10/24/17 23:19 Urine Culture - Final Urine No Growth (<1,000 CFU/ML) 10/25/17 00:15 S.aureus & Coag-Neg Staph PNA FISH - Preliminary Blood-Venous Blood Culture - Preliminary Gram Positive Cocci Gram Stain - Preliminary 10/25/17 00:25 Blood Culture - Preliminary Blood-Venous Gram Positive Cocci Gram Stain - Final Lab Studies 10/27/17 10/27/17 10/27/17 Range/Units 11:42 08:08 05:30 WBC (4.5-11.0) 10^3/ul RBC (3.5-6.1) 10^6/uL Hgb (14.0-18.0) g/dL Hct (42.0-52.0) % MCV (80.0-105.0) fl MCH (25.0-35.0) pg MCHC (31.0-37.0) g/dl RDW (11.5-14.5) % Plt Count (120.0-450.0) 10^3/uL MPV (7.0-11.0) fl Gran % (50.0-68.0) % Lymph % (Auto) (22.0-35.0) % Calloway % (Auto) (1.0-6.0) % Eos % (Auto) (1.5-5.0) % Baso % (Auto) (0.0-3.0) % Gran # (1.4-6.5) Lymph # (Auto) (1.2-3.4) Calloway # (Auto) (0.1-0.6) Eos # (Auto) (0.0-0.7) Baso # (Auto) (0.0-2.0) K/mm3 PT 12.2 (9.4-12.5) SECONDS INR 1.06 APTT 40.9 H (25.1-36.5) Seconds Sodium (132-148) mmol/L Potassium (3.6-5.0) mmol/L Chloride (98-107) mmol/L Carbon Dioxide (21-33) mmol/L Anion Gap (10-20) BUN (7-21) mg/dL Creatinine (0.8-1.5) mg/dl Est GFR ( Amer) Est GFR (Non-Af Amer) POC Glucose (mg/dL) 247 H 250 H (65-110) mg/dL Random Glucose (70-110) mg/dL Calcium (8.4-10.5) mg/dL Phosphorus (2.5-4.5) mg/dL Magnesium (1.7-2.2) mg/dL Total Bilirubin (0.2-1.3) mg/dL AST (17-59) U/L ALT (7-56) U/L Alkaline Phosphatase (38-126) U/L Total Protein (5.8-8.3) g/dL Albumin (3.0-4.8) g/dL Globulin gm/dL Albumin/Globulin Ratio (1.1-1.8) 10/27/17 10/27/17 10/26/17 Range/Units 05:30 05:30 21:45 WBC 40.0 H* D (4.5-11.0) 10^3/ul RBC 4.20 (3.5-6.1) 10^6/uL Hgb 11.8 L (14.0-18.0) g/dL Hct 34.4 L (42.0-52.0) % MCV 81.9 (80.0-105.0) fl MCH 28.1 (25.0-35.0) pg MCHC 34.3 (31.0-37.0) g/dl RDW 15.0 H (11.5-14.5) % Plt Count 201 (120.0-450.0) 10^3/uL MPV 13.0 H (7.0-11.0) fl Gran % 89.3 H (50.0-68.0) % Lymph % (Auto) 8.0 L (22.0-35.0) % Calloway % (Auto) 2.5 (1.0-6.0) % Eos % (Auto) 0.1 L (1.5-5.0) % Baso % (Auto) 0.1 (0.0-3.0) % Gran # 35.67 H (1.4-6.5) Lymph # (Auto) 3.2 (1.2-3.4) Calloway # (Auto) 1.0 H (0.1-0.6) Eos # (Auto) 0.1 (0.0-0.7) Baso # (Auto) 0.05 (0.0-2.0) K/mm3 PT (9.4-12.5) SECONDS INR APTT (25.1-36.5) Seconds Sodium 139 (132-148) mmol/L Potassium 4.0 (3.6-5.0) mmol/L Chloride 107 (98-107) mmol/L Carbon Dioxide 21 (21-33) mmol/L Anion Gap 15 (10-20) BUN 12 (7-21) mg/dL Creatinine 0.6 L (0.8-1.5) mg/dl Est GFR ( Amer) > 60 Est GFR (Non-Af Amer) > 60 POC Glucose (mg/dL) 404 H* (65-110) mg/dL Random Glucose 259 H (70-110) mg/dL Calcium 8.4 (8.4-10.5) mg/dL Phosphorus 1.7 L (2.5-4.5) mg/dL Magnesium 2.0 (1.7-2.2) mg/dL Total Bilirubin 0.4 (0.2-1.3) mg/dL AST 36 (17-59) U/L ALT 35 (7-56) U/L Alkaline Phosphatase 199 H D (38-126) U/L Total Protein 5.4 L (5.8-8.3) g/dL Albumin 3.0 (3.0-4.8) g/dL Globulin 2.4 gm/dL Albumin/Globulin Ratio 1.3 (1.1-1.8) 10/26/17 10/26/17 10/26/17 Range/Units 16:25 16:25 16:18 WBC 56.8 H* (4.5-11.0) 10^3/ul RBC 4.05 (3.5-6.1) 10^6/uL Hgb 11.6 L (14.0-18.0) g/dL Hct 32.9 L (42.0-52.0) % MCV 81.2 (80.0-105.0) fl MCH 28.6 (25.0-35.0) pg MCHC 35.3 (31.0-37.0) g/dl RDW 14.6 H (11.5-14.5) % Plt Count 178 (120.0-450.0) 10^3/uL MPV 11.9 H (7.0-11.0) fl Gran % 88.0 H (50.0-68.0) % Lymph % (Auto) 6.4 L (22.0-35.0) % Calloway % (Auto) 5.5 (1.0-6.0) % Eos % (Auto) 0.0 L (1.5-5.0) % Baso % (Auto) 0.1 (0.0-3.0) % Gran # 49.97 H (1.4-6.5) Lymph # (Auto) 3.6 H (1.2-3.4) Calloway # (Auto) 3.1 H (0.1-0.6) Eos # (Auto) 0.0 (0.0-0.7) Baso # (Auto) 0.06 (0.0-2.0) K/mm3 PT (9.4-12.5) SECONDS INR APTT (25.1-36.5) Seconds Sodium 137 (132-148) mmol/L Potassium 4.1 (3.6-5.0) mmol/L Chloride 108 H (98-107) mmol/L Carbon Dioxide 18 L (21-33) mmol/L Anion Gap 15 (10-20) BUN 12 (7-21) mg/dL Creatinine 0.5 L (0.8-1.5) mg/dl Est GFR ( Amer) > 60 Est GFR (Non-Af Amer) > 60 POC Glucose (mg/dL) 279 H (65-110) mg/dL Random Glucose 283 H (70-110) mg/dL Calcium 8.3 L (8.4-10.5) mg/dL Phosphorus (2.5-4.5) mg/dL Magnesium (1.7-2.2) mg/dL Total Bilirubin (0.2-1.3) mg/dL AST (17-59) U/L ALT (7-56) U/L Alkaline Phosphatase (38-126) U/L Total Protein (5.8-8.3) g/dL Albumin (3.0-4.8) g/dL Globulin gm/dL Albumin/Globulin Ratio (1.1-1.8) 10/25/17 10/25/17 Range/Units 13:27 11:02 WBC (4.5-11.0) 10^3/ul RBC (3.5-6.1) 10^6/uL Hgb (14.0-18.0) g/dL Hct (42.0-52.0) % MCV (80.0-105.0) fl MCH (25.0-35.0) pg MCHC (31.0-37.0) g/dl RDW (11.5-14.5) % Plt Count (120.0-450.0) 10^3/uL MPV (7.0-11.0) fl Gran % (50.0-68.0) % Lymph % (Auto) (22.0-35.0) % Calloway % (Auto) (1.0-6.0) % Eos % (Auto) (1.5-5.0) % Baso % (Auto) (0.0-3.0) % Gran # (1.4-6.5) Lymph # (Auto) (1.2-3.4) Calloway # (Auto) (0.1-0.6) Eos # (Auto) (0.0-0.7) Baso # (Auto) (0.0-2.0) K/mm3 PT (9.4-12.5) SECONDS INR APTT (25.1-36.5) Seconds Sodium (132-148) mmol/L Potassium (3.6-5.0) mmol/L Chloride (98-107) mmol/L Carbon Dioxide (21-33) mmol/L Anion Gap (10-20) BUN (7-21) mg/dL Creatinine (0.8-1.5) mg/dl Est GFR ( Amer) Est GFR (Non-Af Amer) POC Glucose (mg/dL) 252 H 196 H (65-110) mg/dL Random Glucose (70-110) mg/dL Calcium (8.4-10.5) mg/dL Phosphorus (2.5-4.5) mg/dL Magnesium (1.7-2.2) mg/dL Total Bilirubin (0.2-1.3) mg/dL AST (17-59) U/L ALT (7-56) U/L Alkaline Phosphatase (38-126) U/L Total Protein (5.8-8.3) g/dL Albumin (3.0-4.8) g/dL Globulin gm/dL Albumin/Globulin Ratio (1.1-1.8) Laboratory Results - last 24 hr 10/25/17 10/25/17 10/26/17 11:02 13:27 16:18 WBC RBC Hgb Hct MCV MCH MCHC RDW Plt Count MPV Gran % Lymph % (Auto) Calloway % (Auto) Eos % (Auto) Baso % (Auto) Gran # Lymph # (Auto) Calloway # (Auto) Eos # (Auto) Baso # (Auto) PT INR APTT Sodium Potassium Chloride Carbon Dioxide Anion Gap BUN Creatinine Est GFR ( Amer) Est GFR (Non-Af Amer) POC Glucose (mg/dL) 196 H 252 H 279 H Random Glucose Calcium Phosphorus Magnesium Total Bilirubin AST ALT Alkaline Phosphatase Total Protein Albumin Globulin Albumin/Globulin Ratio 10/26/17 10/26/17 10/26/17 16:25 16:25 21:45 WBC 56.8 H* RBC 4.05 Hgb 11.6 L Hct 32.9 L MCV 81.2 MCH 28.6 MCHC 35.3 RDW 14.6 H Plt Count 178 MPV 11.9 H Gran % 88.0 H Lymph % (Auto) 6.4 L Calloway % (Auto) 5.5 Eos % (Auto) 0.0 L Baso % (Auto) 0.1 Gran # 49.97 H Lymph # (Auto) 3.6 H Calloway # (Auto) 3.1 H Eos # (Auto) 0.0 Baso # (Auto) 0.06 PT INR APTT Sodium 137 Potassium 4.1 Chloride 108 H Carbon Dioxide 18 L Anion Gap 15 BUN 12 Creatinine 0.5 L Est GFR ( Amer) > 60 Est GFR (Non-Af Amer) > 60 POC Glucose (mg/dL) 404 H* Random Glucose 283 H Calcium 8.3 L Phosphorus Magnesium Total Bilirubin AST ALT Alkaline Phosphatase Total Protein Albumin Globulin Albumin/Globulin Ratio 10/27/17 10/27/17 10/27/17 05:30 05:30 05:30 WBC 40.0 H* D RBC 4.20 Hgb 11.8 L Hct 34.4 L MCV 81.9 MCH 28.1 MCHC 34.3 RDW 15.0 H Plt Count 201 MPV 13.0 H Gran % 89.3 H Lymph % (Auto) 8.0 L Calloway % (Auto) 2.5 Eos % (Auto) 0.1 L Baso % (Auto) 0.1 Gran # 35.67 H Lymph # (Auto) 3.2 Calloway # (Auto) 1.0 H Eos # (Auto) 0.1 Baso # (Auto) 0.05 PT 12.2 INR 1.06 APTT 40.9 H Sodium 139 Potassium 4.0 Chloride 107 Carbon Dioxide 21 Anion Gap 15 BUN 12 Creatinine 0.6 L Est GFR ( Amer) > 60 Est GFR (Non-Af Amer) > 60 POC Glucose (mg/dL) Random Glucose 259 H Calcium 8.4 Phosphorus 1.7 L Magnesium 2.0 Total Bilirubin 0.4 AST 36 ALT 35 Alkaline Phosphatase 199 H D Total Protein 5.4 L Albumin 3.0 Globulin 2.4 Albumin/Globulin Ratio 1.3 10/27/17 10/27/17 08:08 11:42 WBC RBC Hgb Hct MCV MCH MCHC RDW Plt Count MPV Gran % Lymph % (Auto) Calloway % (Auto) Eos % (Auto) Baso % (Auto) Gran # Lymph # (Auto) Calloway # (Auto) Eos # (Auto) Baso # (Auto) PT INR APTT Sodium Potassium Chloride Carbon Dioxide Anion Gap BUN Creatinine Est GFR ( Amer) Est GFR (Non-Af Amer) POC Glucose (mg/dL) 250 H 247 H Random Glucose Calcium Phosphorus Magnesium Total Bilirubin AST ALT Alkaline Phosphatase Total Protein Albumin Globulin Albumin/Globulin Ratio Fingerstick Blood Sugar Results: 247 Review of Systems - Review of Systems All systems: reviewed and no additional remarkable complaints except Review of Systems: as per HPI Critical Care Progress Note - Nutrition Nutrition: Nutrition Category Date Time Status Heart Healthy Diet [DIET] Diets 10/26/17 Lunch Active Assessment/Plan - Assessment and Plan (Free Text) Assessment: 41 year old male with PMH significant for Factor V Leiden deficiency s/p DVTs/ PEs/IVC filter/L ventricular thrombectomy (2004) on Coumadin, HTN, DM, CHF s/p AICD placement, AICD replacement 2/2 infected hardware (May 2017 at [facility] as per patient), psoriatic arthritis on Cosentyx, HLD, and splenectomy (2003), admitted for management of DKA, severe sepsis, found to be from strep bacteremia , source unknown (likely infected AICD vs endocarditis vs lower spine abscess). Patient scheduled for ROBYN on 10/31 (monday next week) with Dr Bolton. Patient afebrile for 48 hours, downgraded, primary team aware: Neurology: -AAO3 -Neurologically intact -No change in neuro status, Continue to monitor Cardiovascular: -Hx HFrEF - 30-35%, mod to severe global hypokinesis - 07/2016 -LVEF of 23%, severe global hypokinesis, apex appears akinetic. Thickening at apex, possible thrombus vs surgical scar, moderate pulmonary valve regurgitation on 10/26/2017 -maintain MAP>65 -remains on dobutamine drip -BNP elevated 2100 -Cardiology Dr. Santoyo following Pulm: -Maintain O2 Sat 95% Endo: -DKA; AG on admission 19; BG 432, closed yesterday. on SQ long acting and short acting insulin, Dr Burrows on board. Maintain euglycemia. Diabetic education recommended. GI: -carb consistent diet -C/w Protonix Nephro: - replete lytes, maintain euvolemia. Stable Cr ID: -AFebrile overnight. last febrile episodes 105.6 on 10/25 at 1AM -leukocytosis improving -Blood cultures positive for gram pos cocci in chains, strep pneumo -UCx neg, CT abd pelvis neg. -On vanco, rocephin per ID -scheduled for ROBYN next Monday -monitor MSK: Pt. complaining of lower back pain, on percocet, lidocaine patch, flexeril. has continued pain, consulted Pain management Dr Livingston. DVT PPX: scds GI PPX: Protonix PO Patient was seen, examined, and discussed w/ attending physician Dr. Conway. Jasmin Sanford, PGY2 <Aaron Conway - Last Filed: 10/27/17 15:39> CCU Objective - Vital Signs / Intake & Output Vital Signs (Last 4 hours): Vital Signs Temp Pulse Resp BP 10/27/17 14:00 74 10/27/17 12:00 98.4 F 130/78 10/27/17 11:59 87 16 Intake and Output (Last 8hrs): Intake & Output 10/27/17 10/27/17 10/27/17 06:59 14:59 22:59 Intake Total 522 250 Output Total 700 Balance -178 250 Intake: IV 522 250 Right Internal Jugular 522 Output: Urine 700 Urine, Voided 700 - Medications Active Medications: Active Medications Generic Name Dose Route Start Last Admin Trade Name Freq PRN Reason Stop Dose Admin Acetaminophen 650 mg 10/24/17 23:25 10/25/17 18:18 Tylenol 325mg Tab PO 650 mg Q6H PRN Administration Temperature Albuterol Sulfate 2.5 mg 10/24/17 18:01 Albuterol 0.083% Inhal Isha (2.5 Mg/3 Ml) Ud INH [id number] PRN Shortness of Breath Aspirin 81 mg 10/25/17 10:00 10/27/17 09:13 Aspirin Chewable PO 81 mg DAILY LA Administration Atorvastatin Calcium 20 mg 10/24/17 18:15 10/26/17 16:35 Lipitor PO 20 mg DIN LA Administration Carvedilol 3.125 mg 10/25/17 08:00 Coreg PO 0800,1800 [facility] Cyclobenzaprine HCl 5 mg 10/27/17 09:26 10/27/17 12:04 Flexeril PO 5 mg TID PRN Administration Pain, severe (8-10) Heparin Sodium/Sodium Chloride 25,000 units in 250 mls @ 14.288 mls/hr 17:55 10/27/17 09:15 Heparin 79311 Units/250ml 1/2 Normal Saline IV 25 units/kg/hr .[id number] LA 19.845 mls/hr Protocol Administration 18 UNITS/KG/HR Vancomycin HCl 1 gm in 250 mls @ 167 mls/hr 10/24/17 22:00 10/27/17 05:06 Vancomycin 1gm IVPB 167 mls/hr 0600,1800 [facility] Administration Protocol Norepinephrine Bitartrate 8 mg 508 mls @ 15.24 mls/hr 10/25/17 22:00 09:00 / Sodium Chloride IV 0 mcg/min .Q24H PRN 0 mls/hr TITRATE PER MD ORDER Titration Protocol 4 MCG/MIN Dobutamine HCl/Dextrose 500 mg in 250 mls @ 4.714 mls/hr 10/26/17 10:21 10/26 10:41 Dobutamine/Dextrose 5% 500mg/250ml IV 2 mcg/kg/min .Q24H PRN 4.714 mls/hr TITRATE PER PROTOCOL Administration Protocol 2 MCG/KG/MIN Ceftriaxone Sodium 1 gm in 100 mls @ 100 mls/hr 10/26/17 16:15 10/27/17 09:13 Rocephin 1 Gram Ivpb IVPB 100 mls/hr DAILY [facility] Administration Protocol Insulin Detemir 40 unit 10/26/17 22:00 10/26/17 21:51 Levemir SC 40 units HS LA Administration Insulin Human Lispro 0 units 10/26/17 22:00 10/27/17 11:44 Humalog Low SC Not Given ACHS [facility] Protocol Insulin Lispro Protam/Lispro Human 20 units 10/28/17 07:30 Humalog Mix 75/25 SC ACB LA Insulin Lispro Protam/Lispro Human 16 units 10/27/17 16:30 Humalog Mix 75/25 SC ACD LA Lidocaine 1 ea 10/26/17 10:30 10/27/17 09:11 Lidoderm TD 1 ea DAILY LA Administration Oxycodone/Acetaminophen 1 tab 10/26/17 19:56 10/27/17 06:17 Percocet 5/325 Mg Tab PO 10/29/17 19:57 1 tab Q6H PRN Administration Pain, moderate (4-7) Pantoprazole Sodium 40 mg 10/24/17 20:45 10/27/17 06:17 Protonix Ec Tab PO 40 mg 0600 LA Administration - Patient Studies Lab Studies: Microbiology Studies 10/24/17 23:19 Urine Culture - Final Urine No Growth (<1,000 CFU/ML) 10/25/17 00:15 S.aureus & Coag-Neg Staph PNA FISH - Preliminary Blood-Venous Blood Culture - Preliminary Gram Positive Cocci Gram Stain - Preliminary 10/25/17 00:25 Blood Culture - Preliminary Blood-Venous Gram Positive Cocci Gram Stain - Final Lab Studies 10/27/17 10/27/17 10/27/17 Range/Units 14:00 11:42 08:08 WBC (4.5-11.0) 10^3/ul RBC (3.5-6.1) 10^6/uL Hgb (14.0-18.0) g/dL Hct (42.0-52.0) % MCV (80.0-105.0) fl MCH (25.0-35.0) pg MCHC (31.0-37.0) g/dl RDW (11.5-14.5) % Plt Count (120.0-450.0) 10^3/uL MPV (7.0-11.0) fl Gran % (50.0-68.0) % Lymph % (Auto) (22.0-35.0) % Calloway % (Auto) (1.0-6.0) % Eos % (Auto) (1.5-5.0) % Baso % (Auto) (0.0-3.0) % Gran # (1.4-6.5) Lymph # (Auto) (1.2-3.4) C[place]ay # (Auto) (0.1-0.6) Eos # (Auto) (0.0-0.7) Baso # (Auto) (0.0-2.0) K/mm3 PT (9.4-12.5) SECONDS INR APTT 61.6 H (25.1-36.5) Seconds Sodium (132-148) mmol/L Potassium (3.6-5.0) mmol/L Chloride (98-107) mmol/L Carbon Dioxide (21-33) mmol/L Anion Gap (10-20) BUN (7-21) mg/dL Creatinine (0.8-1.5) mg/dl Est GFR ( Amer) Est GFR (Non-Af Amer) POC Glucose (mg/dL) 247 H 250 H (65-110) mg/dL Random Glucose (70-110) mg/dL Calcium (8.4-10.5) mg/dL Phosphorus (2.5-4.5) mg/dL Magnesium (1.7-2.2) mg/dL Total Bilirubin (0.2-1.3) mg/dL AST (17-59) U/L ALT (7-56) U/L Alkaline Phosphatase (38-126) U/L Total Protein (5.8-8.3) g/dL Albumin (3.0-4.8) g/dL Globulin gm/dL Albumin/Globulin Ratio (1.1-1.8) 10/27/17 10/27/17 10/27/17 Range/Units 05:30 05:30 05:30 WBC 40.0 H* D (4.5-11.0) 10^3/ul RBC 4.20 (3.5-6.1) 10^6/uL Hgb 11.8 L (14.0-18.0) g/dL Hct 34.4 L (42.0-52.0) % MCV 81.9 (80.0-105.0) fl MCH 28.1 (25.0-35.0) pg MCHC 34.3 (31.0-37.0) g/dl RDW 15.0 H (11.5-14.5) % Plt Count 201 (120.0-450.0) 10^3/uL MPV 13.0 H (7.0-11.0) fl Gran % 89.3 H (50.0-68.0) % Lymph % (Auto) 8.0 L (22.0-35.0) % C[place] % (Auto) 2.5 (1.0-6.0) % Eos % (Auto) 0.1 L (1.5-5.0) % Baso % (Auto) 0.1 (0.0-3.0) % Gran # 35.67 H (1.4-6.5) Lymph # (Auto) 3.2 (1.2-3.4) C[place]ay # (Auto) 1.0 H (0.1-0.6) Eos # (Auto) 0.1 (0.0-0.7) Baso # (Auto) 0.05 (0.0-2.0) K/mm3 PT 12.2 (9.4-12.5) SECONDS INR 1.06 APTT 40.9 H (25.1-36.5) Seconds Sodium 139 (132-148) mmol/L Potassium 4.0 (3.6-5.0) mmol/L Chloride 107 (98-107) mmol/L Carbon Dioxide 21 (21-33) mmol/L Anion Gap 15 (10-20) BUN 12 (7-21) mg/dL Creatinine 0.6 L (0.8-1.5) mg/dl Est GFR ( Amer) > 60 Est GFR (Non-Af Amer) > 60 POC Glucose (mg/dL) (65-110) mg/dL Random Glucose 259 H (70-110) mg/dL Calcium 8.4 (8.4-10.5) mg/dL Phosphorus 1.7 L (2.5-4.5) mg/dL Magnesium 2.0 (1.7-2.2) mg/dL Total Bilirubin 0.4 (0.2-1.3) mg/dL AST 36 (17-59) U/L ALT 35 (7-56) U/L Alkaline Phosphatase 199 H D (38-126) U/L Total Protein 5.4 L (5.8-8.3) g/dL Albumin 3.0 (3.0-4.8) g/dL Globulin 2.4 gm/dL Albumin/Globulin Ratio 1.3 (1.1-1.8) 10/26/17 10/26/17 10/26/17 Range/Units 21:45 16:25 16:25 WBC 56.8 H* (4.5-11.0) 10^3/ul RBC 4.05 (3.5-6.1) 10^6/uL Hgb 11.6 L (14.0-18.0) g/dL Hct 32.9 L (42.0-52.0) % MCV 81.2 (80.0-105.0) fl MCH 28.6 (25.0-35.0) pg MCHC 35.3 (31.0-37.0) g/dl RDW 14.6 H (11.5-14.5) % Plt Count 178 (120.0-450.0) 10^3/uL MPV 11.9 H (7.0-11.0) fl Gran % 88.0 H (50.0-68.0) % Lymph % (Auto) 6.4 L (22.0-35.0) % [place] % (Auto) 5.5 (1.0-6.0) % Eos % (Auto) 0.0 L (1.5-5.0) % Baso % (Auto) 0.1 (0.0-3.0) % Gran # 49.97 H (1.4-6.5) Lymph # (Auto) 3.6 H (1.2-3.4) [place] # (Auto) 3.1 H (0.1-0.6) Eos # (Auto) 0.0 (0.0-0.7) Baso # (Auto) 0.06 (0.0-2.0) K/mm3 PT (9.4-12.5) SECONDS INR APTT (25.1-36.5) Seconds Sodium 137 (132-148) mmol/L Potassium 4.1 (3.6-5.0) mmol/L Chloride 108 H (98-107) mmol/L Carbon Dioxide 18 L (21-33) mmol/L Anion Gap 15 (10-20) BUN 12 (7-21) mg/dL Creatinine 0.5 L (0.8-1.5) mg/dl Est GFR ( Amer) > 60 Est GFR (Non-Af Amer) > 60 POC Glucose (mg/dL) 404 H* (65-110) mg/dL Random Glucose 283 H (70-110) mg/dL Calcium 8.3 L (8.4-10.5) mg/dL Phosphorus (2.5-4.5) mg/dL Magnesium (1.7-2.2) mg/dL Total Bilirubin (0.2-1.3) mg/dL AST (17-59) U/L ALT (7-56) U/L Alkaline Phosphatase (38-126) U/L Total Protein (5.8-8.3) g/dL Albumin (3.0-4.8) g/dL Globulin gm/dL Albumin/Globulin Ratio (1.1-1.8) 10/26/17 Range/Units 16:18 WBC (4.5-11.0) 10^3/ul RBC (3.5-6.1) 10^6/uL Hgb (14.0-18.0) g/dL Hct (42.0-52.0) % MCV (80.0-105.0) fl MCH (25.0-35.0) pg MCHC (31.0-37.0) g/dl RDW (11.5-14.5) % Plt Count (120.0-450.0) 10^3/uL MPV (7.0-11.0) fl Gran % (50.0-68.0) % Lymph % (Auto) (22.0-35.0) % [place] % (Auto) (1.0-6.0) % Eos % (Auto) (1.5-5.0) % Baso % (Auto) (0.0-3.0) % Gran # (1.4-6.5) Lymph # (Auto) (1.2-3.4) [place] # (Auto) (0.1-0.6) Eos # (Auto) (0.0-0.7) Baso # (Auto) (0.0-2.0) K/mm3 PT (9.4-12.5) SECONDS INR APTT (25.1-36.5) Seconds Sodium (132-148) mmol/L Potassium (3.6-5.0) mmol/L Chloride (98-107) mmol/L Carbon Dioxide (21-33) mmol/L Anion Gap (10-20) BUN (7-21) mg/dL Creatinine (0.8-1.5) mg/dl Est GFR ( Amer) Est GFR (Non-Af Amer) POC Glucose (mg/dL) 279 H (65-110) mg/dL Random Glucose (70-110) mg/dL Calcium (8.4-10.5) mg/dL Phosphorus (2.5-4.5) mg/dL Magnesium (1.7-2.2) mg/dL Total Bilirubin (0.2-1.3) mg/dL AST (17-59) U/L ALT (7-56) U/L Alkaline Phosphatase (38-126) U/L Total Protein (5.8-8.3) g/dL Albumin (3.0-4.8) g/dL Globulin gm/dL Albumin/Globulin Ratio (1.1-1.8) Laboratory Results - last 24 hr 10/26/17 10/26/17 10/26/17 16:18 16:25 16:25 WBC 56.8 H* RBC 4.05 Hgb 11.6 L Hct 32.9 L MCV 81.2 MCH 28.6 MCHC 35.3 RDW 14.6 H Plt Count 178 MPV 11.9 H Gran % 88.0 H Lymph % (Auto) 6.4 L [place] % (Auto) 5.5 Eos % (Auto) 0.0 L Baso % (Auto) 0.1 Gran # 49.97 H Lymph # (Auto) 3.6 H [place] # (Auto) 3.1 H Eos # (Auto) 0.0 Baso # (Auto) 0.06 PT INR APTT Sodium 137 Potassium 4.1 Chloride 108 H Carbon Dioxide 18 L Anion Gap 15 BUN 12 Creatinine 0.5 L Est GFR ( Amer) > 60 Est GFR (Non-Af Amer) > 60 POC Glucose (mg/dL) 279 H Random Glucose 283 H Calcium 8.3 L Phosphorus Magnesium Total Bilirubin AST ALT Alkaline Phosphatase Total Protein Albumin Globulin Albumin/Globulin Ratio 10/26/17 10/27/17 10/27/17 21:45 05:30 05:30 WBC 40.0 H* D RBC 4.20 Hgb 11.8 L Hct 34.4 L MCV 81.9 MCH 28.1 MCHC 34.3 RDW 15.0 H Plt Count 201 MPV 13.0 H Gran % 89.3 H Lymph % (Auto) 8.0 L [place] % (Auto) 2.5 Eos % (Auto) 0.1 L Baso % (Auto) 0.1 Gran # 35.67 H Lymph # (Auto) 3.2 Calloway # (Auto) 1.0 H Eos # (Auto) 0.1 Baso # (Auto) 0.05 PT INR APTT Sodium 139 Potassium 4.0 Chloride 107 Carbon Dioxide 21 Anion Gap 15 BUN 12 Creatinine 0.6 L Est GFR ( Amer) > 60 Est GFR (Non-Af Amer) > 60 POC Glucose (mg/dL) 404 H* Random Glucose 259 H Calcium 8.4 Phosphorus 1.7 L Magnesium 2.0 Total Bilirubin 0.4 AST 36 ALT 35 Alkaline Phosphatase 199 H D Total Protein 5.4 L Albumin 3.0 Globulin 2.4 Albumin/Globulin Ratio 1.3 10/27/17 10/27/17 10/27/17 05:30 08:08 11:42 WBC RBC Hgb Hct MCV MCH MCHC RDW Plt Count MPV Gran % Lymph % (Auto) Calloway % (Auto) Eos % (Auto) Baso % (Auto) Gran # Lymph # (Auto) Calloway # (Auto) Eos # (Auto) Baso # (Auto) PT 12.2 INR 1.06 APTT 40.9 H Sodium Potassium Chloride Carbon Dioxide Anion Gap BUN Creatinine Est GFR ( Amer) Est GFR (Non-Af Amer) POC Glucose (mg/dL) 250 H 247 H Random Glucose Calcium Phosphorus Magnesium Total Bilirubin AST ALT Alkaline Phosphatase Total Protein Albumin Globulin Albumin/Globulin Ratio 10/27/17 14:00 WBC RBC Hgb Hct MCV MCH MCHC RDW Plt Count MPV Gran % Lymph % (Auto) Calloway % (Auto) Eos % (Auto) Baso % (Auto) Gran # Lymph # (Auto) Calloway # (Auto) Eos # (Auto) Baso # (Auto) PT INR APTT 61.6 H Sodium Potassium Chloride Carbon Dioxide Anion Gap BUN Creatinine Est GFR ( Amer) Est GFR (Non-Af Amer) POC Glucose (mg/dL) Random Glucose Calcium Phosphorus Magnesium Total Bilirubin AST ALT Alkaline Phosphatase Total Protein Albumin Globulin Albumin/Globulin Ratio Critical Care Progress Note - Nutrition Nutrition: Nutrition Category Date Time Status Heart Healthy Diet [DIET] Diets 10/26/17 Lunch Active Attending/Attestation - Attestation I have personally seen and examined this patient.: Yes I have fully participated in the care of the patient.: Yes I have reviewed all pertinent clinical information: Yes Notes (Text): 10/27/17 15:[address] Conway note
--- NOTE | 2017-10-27 15:05 | CP.PCM.PN ---
Subjective - Date & Time of Evaluation Date of Evaluation: 10/27/17 Time of Evaluation: 14:30 - Subjective Subjective: Infectious Disease Follow Up: October 27, 2017 41 yo male with extensive PMHx that includes Factor V Leiden s/p DVTs/PEs/IVC filter/L ventricular thrombectomy (2004) on Coumadin, HTN, DM, CHF s/p AICD placement, AICD replacement 2/2 infected hardware ([place] [facility] [place]), psoriatic arthritis, HLD, and splenectomy (2003) who presents with complaint of shortness of breath and left-sided chest pain x3 days. As per patient, he started to feel unwell 3 weeks ago after receiving last Cosentyn injection. He apparently received Bentyl and Prednisone for 5 days with 10 days of Augmentin. No improvement. Had SOB at home and high glucose levels above 400. Claimed poor oral intake. Elevated trop in ER here at [facility] [place]. Question of medication compliance as the patient's pharmacy has several medications listed there that have not been filled in the past year. Tachcardia under control today. Still with episodes of hypotension. Remains on Vancomycin and Cefepime for antibiotic coverage. Cultures are still pending. Still complaining of back pain that he rates at 8 out of 10. Cultures still pending. Blood cultures showing gram positive cocci. Verigene suggesting Streptococci. Objective - Vital Signs/Intake and Output Vital Signs (last 24 hours): Temp Pulse Resp BP Pulse Ox 98.4 F 74 16 130/78 89 L 10/27/17 12:00 10/27/17 14:00 10/27/17 11:59 10/27/17 12:00 10/26/17 20:00 Intake and Output: 10/27/17 10/27/17 06:59 18:59 Intake Total 522 250 Output Total 700 Balance -178 250 - Medications Medications: Current Medications Acetaminophen (Tylenol 325mg Tab) 650 mg PO Q6H PRN PRN Reason: Temperature Last Admin: 10/25/17 18:18 Dose: 650 mg Albuterol Sulfate (Albuterol 0.083% Inhal Isha (2.5 Mg/3 Ml) Ud) 2.5 mg INH [id number] PRN PRN Reason: Shortness of Breath Aspirin (Aspirin Chewable) 81 mg PO DAILY LA Last Admin: 10/27/17 09:13 Dose: 81 mg Atorvastatin Calcium (Lipitor) 20 mg PO DIN [facility] Last Admin: 10/26/17 16:35 Dose: 20 mg Carvedilol (Coreg) 3.125 mg PO 0800,1800 LA Cyclobenzaprine HCl (Flexeril) 5 mg PO TID PRN PRN Reason: Pain, severe (8-10) Last Admin: 10/27/17 12:04 Dose: 5 mg Heparin Sodium/Sodium Chloride (Heparin 00791 Units/250ml 1/2 Normal Saline) 25 ,000 units in 250 mls @ 14.288 mls/hr IV .[id number] LA; 18 UNITS/KG/HR PRN Reason: Protocol Last Admin: 10/27/17 09:15 Dose: 25 units/kg/hr, 19.845 mls/hr Vancomycin HCl (Vancomycin 1gm) 1 gm in 250 mls @ 167 mls/hr IVPB 0600,1800 [facility] PRN Reason: Protocol Last Admin: 10/27/17 05:06 Dose: 167 mls/hr Norepinephrine Bitartrate 8 mg (/ Sodium Chloride) 508 mls @ 15.24 mls/hr IV .Q24H PRN; Protocol; 4 MCG/MIN PRN Reason: TITRATE PER MD ORDER Last Titration: 10/26/17 09:00 Dose: 0 mcg/min, 0 mls/hr Dobutamine HCl/Dextrose (Dobutamine/Dextrose 5% 500mg/250ml) 500 mg in 250 mls @ 4.714 mls/hr IV .Q24H PRN; Protocol; 2 MCG/KG/MIN PRN Reason: TITRATE PER PROTOCOL Last Admin: 10/26/17 10:41 Dose: 2 mcg/kg/min, 4.714 mls/hr Ceftriaxone Sodium (Rocephin 1 Gram Ivpb) 1 gm in 100 mls @ 100 mls/hr IVPB DAILY [facility] PRN Reason: Protocol Last Admin: 10/27/17 09:13 Dose: 100 mls/hr Insulin Detemir (Levemir) 40 unit SC HS [facility] Last Admin: 10/26/17 21:51 Dose: 40 units Insulin Human Lispro (Humalog Low) 0 units SC ACHS [facility] PRN Reason: Protocol Last Admin: 10/27/17 11:44 Dose: Not Given Insulin Lispro Protam/Lispro Human (Humalog Mix 75/25) 20 units SC ACB LA Insulin Lispro Protam/Lispro Human (Humalog Mix 75/25) 16 units SC ACD [facility] Lidocaine (Lidoderm) 1 ea TD DAILY [facility] Last Admin: 10/27/17 09:11 Dose: 1 ea Oxycodone/Acetaminophen (Percocet 5/325 Mg Tab) 1 tab PO Q6H PRN PRN Reason: Pain, moderate (4-7) Stop: 10/29/17 19:57 Last Admin: 10/27/17 06:17 Dose: 1 tab Pantoprazole Sodium (Protonix Ec Tab) 40 mg PO 0600 LA Last Admin: 10/27/17 06:17 Dose: 40 mg - Labs Labs: 10/27/17 05:30 10/27/17 05:30 PT 12.2 SECONDS (9.4-12.5) 10/27/17 05:30 INR 1.06 10/27/17 05:30 APTT 61.6 Seconds (25.1-36.5) H 10/27/17 14:00 - Constitutional Appears: Chronically Ill - Head Exam Head Exam: ATRAUMATIC, NORMOCEPHALIC - Eye Exam Eye Exam: EOMI, PERRL Pupil Exam: NORMAL ACCOMODATION, PERRL - ENT Exam ENT Exam: Mucous Membranes Moist, Normal External Ear Exam, TM's Normal Bilaterally - Neck Exam Neck Exam: Full ROM, Normal Inspection - Respiratory Exam Respiratory Exam: Clear to Ausculation Bilateral, NORMAL BREATHING PATTERN. absent: Rales, Rhonchi, Wheezes - Cardiovascular Exam Cardiovascular Exam: REGULAR RHYTHM, RRR, +S1, +S2 - GI/Abdominal Exam GI & Abdominal Exam: Soft, Normal Bowel Sounds. absent: Distended, Tenderness - Extremities Exam Extremities Exam: Full ROM, Normal Inspection - Neurological Exam Neurological Exam: Alert, Awake, CN II-XII Intact, Oriented x3 - Psychiatric Exam Psychiatric exam: Flat Affect - Skin Skin Exam: Intact, Normal Color Assessment and Plan - Assessment and Plan (Free Text) Assessment: 41 yo male with vague complaints of feeling unwell with significant leukocytosis of 29. Extensive PMHx of L ventricular thromboectomy (2003), R Femur fracture repair (2003), IVC filter placement, arthoscopic debridement, synovectomy for right septic knee joint, splenectomy 2003, tonsillectomy 2017, AICD placement, AICD removal and replacement (2/2 infected hardware). The patient with complaints of SOB and left sided chest pain. No specific findings of the Chest X-ray. Supportive care. Continued on Cefepime and IV Vancomycin at this time. Although not tachycardia today, the patient still has hypotensive episodes. Given a single dose of Gentamicin during this hospitalization. Leukocytosis of 40 today. High of 56.8. Broad spectrum antibiotics for sepsis of unclear source. Cultures are showing gram positive diplococci. Possible Streptococci. On IV Vancomycin and Ceftriaxone. Still awaiting final cultures. Patient with back pain still that he is currently rating at 8 out of 10. Lund cultures. May need further imaging studies with CT scan. CT angio negative for PE. CT abdomen and pelvis was unremarkable. Thank you for allowing me to participate in the care of the patient, we will follow with you.
[2017-10-27] MEDS: Insulin Lispro (humaLOG) MIX 75/25(10 ml) SC SCH (16:30)
--- NOTE | 2017-10-27 16:52 | CP.PCM.PN ---
Subjective - Date & Time of Evaluation Date of Evaluation: 10/27/17 Time of Evaluation: 02:50 - Subjective Subjective: Patient seen today for follow up. Complaining of back pain especially on deep inspiration. No fevers or chills. Objective - Vital Signs/Intake and Output Vital Signs (last 24 hours): Temp Pulse Resp BP Pulse Ox 98.4 F 74 16 130/78 89 L 10/27/17 12:00 10/27/17 14:00 10/27/17 11:59 10/27/17 12:00 10/26/17 20:00 Intake and Output: 10/27/17 10/27/17 06:59 18:59 Intake Total 522 250 Output Total 700 Balance -178 250 - Medications Medications: Current Medications Acetaminophen (Tylenol 325mg Tab) 650 mg PO Q6H PRN PRN Reason: Temperature Last Admin: 10/25/17 18:18 Dose: 650 mg Albuterol Sulfate (Albuterol 0.083% Inhal Isha (2.5 Mg/3 Ml) Ud) 2.5 mg INH [id number] PRN PRN Reason: Shortness of Breath Aspirin (Aspirin Chewable) 81 mg PO DAILY LA Last Admin: 10/27/17 09:13 Dose: 81 mg Atorvastatin Calcium (Lipitor) 20 mg PO DIN LA Last Admin: 10/27/17 16:32 Dose: 20 mg Carvedilol (Coreg) 3.125 mg PO 0800,1800 LA Cyclobenzaprine HCl (Flexeril) 5 mg PO TID PRN PRN Reason: Pain, severe (8-10) Last Admin: 10/27/17 12:04 Dose: 5 mg Heparin Sodium/Sodium Chloride (Heparin 56503 Units/250ml 1/2 Normal Saline) 25 ,000 units in 250 mls @ 14.288 mls/hr IV .[id number] LA; 18 UNITS/KG/HR PRN Reason: Protocol Last Admin: 10/27/17 09:15 Dose: 25 units/kg/hr, 19.845 mls/hr Vancomycin HCl (Vancomycin 1gm) 1 gm in 250 mls @ 167 mls/hr IVPB 0600,1800 LA PRN Reason: Protocol Last Admin: 10/27/17 05:06 Dose: 167 mls/hr Norepinephrine Bitartrate 8 mg (/ Sodium Chloride) 508 mls @ 15.24 mls/hr IV .Q24H PRN; Protocol; 4 MCG/MIN PRN Reason: TITRATE PER MD ORDER Last Titration: 10/26/17 09:00 Dose: 0 mcg/min, 0 mls/hr Dobutamine HCl/Dextrose (Dobutamine/Dextrose 5% 500mg/250ml) 500 mg in 250 mls @ 4.714 mls/hr IV .Q24H PRN; Protocol; 2 MCG/KG/MIN PRN Reason: TITRATE PER PROTOCOL Last Admin: 10/26/17 10:41 Dose: 2 mcg/kg/min, 4.714 mls/hr Ceftriaxone Sodium (Rocephin 1 Gram Ivpb) 1 gm in 100 mls @ 100 mls/hr IVPB DAILY [facility] PRN Reason: Protocol Last Admin: 10/27/17 09:13 Dose: 100 mls/hr Insulin Detemir (Levemir) 40 unit SC HS [facility] Last Admin: 10/26/17 21:51 Dose: 40 units Insulin Human Lispro (Humalog Low) 0 units SC ACHS [facility] PRN Reason: Protocol Last Admin: 10/27/17 16:29 Dose: 4 units Insulin Lispro Protam/Lispro Human (Humalog Mix 75/25) 20 units SC ACB LA Insulin Lispro Protam/Lispro Human (Humalog Mix 75/25) 16 units SC ACD [facility] Last Admin: 10/27/17 16:30 Dose: 16 units Lidocaine (Lidoderm) 1 ea TD DAILY [facility] Last Admin: 10/27/17 09:11 Dose: 1 ea Oxycodone/Acetaminophen (Percocet 5/325 Mg Tab) 1 tab PO Q6H PRN PRN Reason: Pain, moderate (4-7) Stop: 10/29/17 19:57 Last Admin: 10/27/17 06:17 Dose: 1 tab Pantoprazole Sodium (Protonix Ec Tab) 40 mg PO 0600 [facility] Last Admin: 10/27/17 06:17 Dose: 40 mg - Labs Labs: 10/27/17 05:30 10/27/17 05:30 PT 12.2 SECONDS (9.4-12.5) 10/27/17 05:30 INR 1.06 10/27/17 05:30 APTT 61.6 Seconds (25.1-36.5) H 08/31/18 14:00 - Constitutional Appears: Well, Non-toxic - Head Exam Head Exam: ATRAUMATIC, NORMAL INSPECTION, NORMOCEPHALIC - Eye Exam Eye Exam: EOMI, Normal appearance, PERRL - ENT Exam ENT Exam: Mucous Membranes Moist, Normal Exam - Neck Exam Neck Exam: absent: Lymphadenopathy - Respiratory Exam Respiratory Exam: NORMAL BREATHING PATTERN. absent: Accessory Muscle Use, Chest Wall Tenderness, Decreased Breath Sounds - Cardiovascular Exam Cardiovascular Exam: REGULAR RHYTHM, +S1, +S2 - GI/Abdominal Exam GI & Abdominal Exam: Soft, Normal Bowel Sounds - Rectal Exam Rectal Exam: Deferred - Extremities Exam Extremities Exam: Full ROM - Neurological Exam Neurological Exam: Alert, Awake, CN II-XII Intact, Oriented x3 - Psychiatric Exam Psychiatric exam: Normal Mood Assessment and Plan (1) Leukocytosis Status: Acute - Assessment and Plan (Free Text) Assessment: In summary, this is a 41 year old male patient with multiple comorbid conditions including DM, CHF s/p AICD placement, asplenia admitted for sepsis noted to have bacteremia. Source of infection may be related to recently replaced AICD, vegatations or spinal abscess. Patient will have further cardiac workup next week. At this time WBC are trending down and clinically patient is improving. Smear findings were consistent with left shift with a leukomoid reaction, many bands with toxic granulation. RBC morphology was notable for anisopoikilocytosis , but otherwise no schisctocytes or nucleated rbc were not present. Plan Will follow up peripheral flow cytometry Continue IV antibiotics Continue supportive measures Continue anticoagulation, heparin may be a better option if any surgical intervention is required next week No need for leukapheresis at this time Thank you for allowing me to partake in your patients care. Sincerely, Ernesto Monroe
--- NOTE | 2017-10-27 16:58 | CP.PCM.PN ---
<Landen Dent - Last Filed: 10/27/17 16:54> Subjective - Date & Time of Evaluation Date of Evaluation: 10/27/17 Time of Evaluation: 10:15 - Subjective Subjective: Landen Dent DO PGY-1, [employer] [facility] Progress Note Pt seen and examined at bedside. reported upper back pain b/l overnight improving with pain medication. Otherwise no acute events. Pt to have ROBYN performed early next week with Dr. Santoyo. 12-point ROS obtained, otherwise neg as per pt. Objective - Vital Signs/Intake and Output Vital Signs (last 24 hours): Temp Pulse Resp BP Pulse Ox 98.4 F 74 16 130/78 89 L 10/27/17 12:00 10/27/17 14:00 10/27/17 11:59 10/27/17 12:00 10/26/17 20:00 Intake and Output: 10/27/17 10/27/17 06:59 18:59 Intake Total 522 250 Output Total 700 Balance -178 250 - Medications Medications: Current Medications Acetaminophen (Tylenol 325mg Tab) 650 mg PO Q6H PRN PRN Reason: Temperature Last Admin: 10/25/17 18:18 Dose: 650 mg Albuterol Sulfate (Albuterol 0.083% Inhal Isha (2.5 Mg/3 Ml) Ud) 2.5 mg INH [id number] PRN PRN Reason: Shortness of Breath Aspirin (Aspirin Chewable) 81 mg PO DAILY LA Last Admin: 10/27/17 09:13 Dose: 81 mg Atorvastatin Calcium (Lipitor) 20 mg PO DIN LA Last Admin: 10/27/17 16:32 Dose: 20 mg Carvedilol (Coreg) 3.125 mg PO 0800,1800 [facility] Cyclobenzaprine HCl (Flexeril) 5 mg PO TID PRN PRN Reason: Pain, severe (8-10) Last Admin: 10/27/17 12:04 Dose: 5 mg Heparin Sodium/Sodium Chloride (Heparin 05152 Units/250ml 1/2 Normal Saline) 25 ,000 units in 250 mls @ 14.288 mls/hr IV .[id number] LA; 18 UNITS/KG/HR PRN Reason: Protocol Last Admin: 10/27/17 09:15 Dose: 25 units/kg/hr, 19.845 mls/hr Vancomycin HCl (Vancomycin 1gm) 1 gm in 250 mls @ 167 mls/hr IVPB 0600,1800 LA PRN Reason: Protocol Last Admin: 10/27/17 05:06 Dose: 167 mls/hr Norepinephrine Bitartrate 8 mg (/ Sodium Chloride) 508 mls @ 15.24 mls/hr IV .Q24H PRN; Protocol; 4 MCG/MIN PRN Reason: TITRATE PER MD ORDER Last Titration: 10/26/17 09:00 Dose: 0 mcg/min, 0 mls/hr Dobutamine HCl/Dextrose (Dobutamine/Dextrose 5% 500mg/250ml) 500 mg in 250 mls @ 4.714 mls/hr IV .Q24H PRN; Protocol; 2 MCG/KG/MIN PRN Reason: TITRATE PER PROTOCOL Last Admin: 10/26/17 10:41 Dose: 2 mcg/kg/min, 4.714 mls/hr Ceftriaxone Sodium (Rocephin 1 Gram Ivpb) 1 gm in 100 mls @ 100 mls/hr IVPB DAILY [facility] PRN Reason: Protocol Last Admin: 10/27/17 09:13 Dose: 100 mls/hr Insulin Detemir (Levemir) 40 unit SC HS LA Last Admin: 10/26/17 21:51 Dose: 40 units Insulin Human Lispro (Humalog Low) 0 units SC ACHS [facility] PRN Reason: Protocol Last Admin: 10/27/17 16:29 Dose: 4 units Insulin Lispro Protam/Lispro Human (Humalog Mix 75/25) 20 units SC ACB LA Insulin Lispro Protam/Lispro Human (Humalog Mix 75/25) 16 units SC ACD LA Last Admin: 10/27/17 16:30 Dose: 16 units Lidocaine (Lidoderm) 1 ea TD DAILY [facility] Last Admin: 10/27/17 09:11 Dose: 1 ea Oxycodone/Acetaminophen (Percocet 5/325 Mg Tab) 1 tab PO Q6H PRN PRN Reason: Pain, moderate (4-7) Stop: 10/29/17 19:57 Last Admin: 10/27/17 06:17 Dose: 1 tab Pantoprazole Sodium (Protonix Ec Tab) 40 mg PO 0600 [facility] Last Admin: 10/27/17 06:17 Dose: 40 mg - Labs Labs: 10/27/17 05:30 10/27/17 05:30 PT 12.2 SECONDS (9.4-12.5) 10/27/17 05:30 INR 1.06 10/27/17 05:30 APTT 61.6 Seconds (25.1-36.5) H 10/27/17 14:00 - Constitutional Appears: Non-toxic, No Acute Distress - Eye Exam Eye Exam: EOMI, Normal appearance, PERRL - ENT Exam ENT Exam: Mucous Membranes Moist, Normal Oropharynx - Respiratory Exam Respiratory Exam: Clear to Ausculation Bilateral, NORMAL BREATHING PATTERN - Cardiovascular Exam Cardiovascular Exam: REGULAR RHYTHM, +S1, +S2 - GI/Abdominal Exam GI & Abdominal Exam: Soft, Normal Bowel Sounds. absent: Tenderness - Extremities Exam Extremities Exam: Full ROM, Normal Capillary Refill, Normal Inspection - Neurological Exam Neurological Exam: Alert, Awake, CN II-XII Intact, Oriented x3 - Skin Skin Exam: Dry, Intact, Normal Color, Warm Assessment and Plan - Assessment and Plan (Free Text) Assessment: 41 yo Male with PMH of Factor V Leiden, DVT, PE, HTN, DM, CHF, HLD, and splenectomy who presented to the ED with complaint of SOB and left-sided chest pain x3 days. Plan: DKA - HA1C 9.3 - Cont to trend fingersticks - anion gap, closed - continue to monitor Persistent Leukocytosis - WBC 40 today - blood cultures- GPC - ceftriaxone started - continue vanc - ID following, Dr De León, recs appreciated CHF - ECHO: EF=23%, severe global hypokinesis - [place] [facility] [place] concerning his prior catheterization - cardio following, Dr Santoyo, plan for ROBYN for early next week Factor V Leiden - Coumadin, on hold, INR 1.19 - continue heparin Ppx -Protonix -Heparin Per ICU, pt to be downgraded to med/surg floor. Pt seen, examined, assessment and plan discussed with Dr Guerra, attending. Landen Dent DO PGY-1, [employer] Pager #[phone] <Jason Guerra - Last Filed: 10/28/17 19:07> Objective - Vital Signs/Intake and Output Vital Signs (last 24 hours): Temp Pulse Resp BP Pulse Ox 97.4 F L 64 13 105/32 L 74 L 10/28/17 16:00 10/28/17 16:00 10/28/17 16:00 10/28/17 12:01 10/28/17 04:00 Intake and Output: 10/28/17 10/29/17 18:59 06:59 Intake Total 1059 Output Total 500 Balance 559 - Medications Medications: Current Medications Acetaminophen (Tylenol 325mg Tab) 650 mg PO Q6H PRN PRN Reason: Temperature Last Admin: 10/25/17 18:18 Dose: 650 mg Albuterol Sulfate (Albuterol 0.083% Inhal Isha (2.5 Mg/3 Ml) Ud) 2.5 mg INH [id number] PRN PRN Reason: Shortness of Breath Aspirin (Aspirin Chewable) 81 mg PO DAILY LA Last Admin: 10/28/17 09:13 Dose: 81 mg Atorvastatin Calcium (Lipitor) 20 mg PO DIN LA Last Admin: 10/28/17 17:49 Dose: 20 mg Carvedilol (Coreg) 3.125 mg PO 0800,1800 [facility] Cyclobenzaprine HCl (Flexeril) 5 mg PO TID PRN PRN Reason: Pain, severe (8-10) Last Admin: 10/28/17 08:19 Dose: 5 mg Hydromorphone HCl (Dilaudid) 1 mg IVP Q4H PRN PRN Reason: Pain, severe (8-10) Last Admin: 10/28/17 17:48 Dose: 1 mg Heparin Sodium/Sodium Chloride (Heparin 79975 Units/250ml 1/2 Normal Saline) 25 ,000 units in 250 mls @ 14.288 mls/hr IV .[id number] LA; 18 UNITS/KG/HR PRN Reason: Protocol Last Admin: 10/28/17 09:27 Dose: 25 units/kg/hr, 19.845 mls/hr Norepinephrine Bitartrate 8 mg (/ Sodium Chloride) 508 mls @ 15.24 mls/hr IV .Q24H PRN; Protocol; 4 MCG/MIN PRN Reason: TITRATE PER MD ORDER Last Titration: 10/26/17 09:00 Dose: 0 mcg/min, 0 mls/hr Dobutamine HCl/Dextrose (Dobutamine/Dextrose 5% 500mg/250ml) 500 mg in 250 mls @ 4.714 mls/hr IV .Q24H PRN; Protocol; 2 MCG/KG/MIN PRN Reason: TITRATE PER PROTOCOL Last Admin: 10/28/17 10:11 Dose: 2 mcg/kg/min, 4.714 mls/hr Ceftriaxone Sodium (Rocephin 1 Gram Ivpb) 1 gm in 100 mls @ 100 mls/hr IVPB DAILY [facility] PRN Reason: Protocol Last Admin: 10/28/17 09:26 Dose: 100 mls/hr Insulin Detemir (Levemir) 40 unit SC HS [facility] Last Admin: 10/27/17 21:39 Dose: 40 units Insulin Human Lispro (Humalog Low) 0 units SC ACHS [facility] PRN Reason: Protocol Last Admin: 10/28/17 16:05 Dose: 3 units Insulin Lispro Protam/Lispro Human (Humalog Mix 75/25) 20 units SC ACB [facility] Last Admin: 10/28/17 08:13 Dose: 20 units Insulin Lispro Protam/Lispro Human (Humalog Mix 75/25) 16 units SC ACD [facility] Last Admin: 10/28/17 16:05 Dose: 16 units Lidocaine (Lidoderm) 1 ea TD DAILY [facility] Last Admin: 10/28/17 09:14 Dose: 1 ea Oxycodone/Acetaminophen (Percocet 5/325 Mg Tab) 1 tab PO Q6H PRN PRN Reason: Pain, moderate (4-7) Stop: 10/29/17 19:57 Last Admin: 10/28/17 12:13 Dose: 1 tab Pantoprazole Sodium (Protonix Ec Tab) 40 mg PO 0600 [facility] Last Admin: 10/28/17 05:18 Dose: 40 mg Vancomycin HCl (Vancocin 25 Mg/Ml (Oral Use)) 250 mg PO QID [facility] PRN Reason: Protocol - Labs Labs: 10/28/17 05:00 10/28/17 05:00 PT 12.7 SECONDS (9.4-12.5) H 10/28/17 05:00 INR 1.10 10/28/17 05:00 APTT 56.3 Seconds (25.1-36.5) H 10/28/17 05:00 Attending/Attestation - Attestation I have personally seen and examined this patient.: Yes I have fully participated in the care of the patient.: Yes I have reviewed all pertinent clinical information, including history, physical exam and plan: Yes
--- NOTE | 2017-10-27 17:42 | CP.PCM.CON ---
History of Present Illness - History of Present Illness History of Present Illness: Pain management consult Patient is 41yo M with PMHx of Factor V Leiden, DVT, PE, left ventricular thrombectomy, HTN, DM, CHF with AICD, HLD, and psoriatic arthritis presented initially with SOB and left sided chest pain found to be in DKA and severe sepsis from strep bacteremia. Currently off pressors and anion gap closed. Patient complaining of uncontrolled upper back pain which started 2 days after being admitted. Pain starts in the trapezius and radiates downwards bilaterally , constant, sharp/soreness in nature and 10/10. Patient was initially started on percocet 5/325 which did not relieve his pain. Subsequently lidoderm and flexeril were added. He states the flexeril did relieve his pain temporary for couple of hours bringing the pain level down to 6/10. At home he takes percocet 10 for his psoriatic arthritis. Patient states he wants the pain to be better controlled. Recommendations: Case discuss with interior decorator painting Dr. Barahona - resume patient home pain medication regiment of percocet - Continue current flexeril and lidoderm - Start dilaudid 1mg IV Q4h PRN breakthrough pain - Gabapentin 100mg PO BID - Obtain MRI of thoracic and lumbar spine - Start bedside PT Past Patient History - Infectious Disease Hx of Infectious Diseases: None - Tetanus Immunizations Tetanus Immunization: Up to Date (3 years ago) - Past Medical History & Family History Past Medical History?: Yes - Past Social History Smoking Status: Current Some Days Smoker - CARDIAC Hx Cardiac Disorders: Yes Hx Congestive Heart Failure: Yes Other/Comment: open heart to left ventricle to remove blood clot, dvt/ivc filter , multiple pe and dvt's, 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 - MUSCULOSKELETAL/RHEUMATOLOGICAL Hx Musculoskeletal Disorders: Yes Hx Falls: No Hx Fractures: Yes (FEMORAL FX ORIF REMOVAL OF HARDWARE) Hx Unsteady Gait: Yes Other/Comment: right orif and hardware removal - GASTROINTESTINAL Hx Gastrointestinal Disorders: Yes Hx Gastroesophageal Reflux: Yes - GENITOURINARY/GYNECOLOGICAL Hx Genitourinary Disorders: Yes Other/Comment: ERECTILE DYSFUNCTION/penile implant - PSYCHIATRIC Hx Psychophysiologic Disorder: No - SURGICAL HISTORY Other/Comment: Femur fracture right 2003,DVT IVC FILTER,OPEN HEART SURGERY-CLOT REMOVAL FOR L VENTRICLE 2004, arthoscopic debridement, synovectomy sx for right septic knee joint and left arm picc line insertion, 09/15/2015, splenectomy 2003 , tonsillectomy 13 days ago at [facility], difibrillator implaint 2016 - ANESTHESIA Hx Anesthesia: Yes Hx Anesthesia Reactions: No Hx Malignant Hyperthermia: No Meds Allergies/Adverse Reactions: Allergies Allergy/AdvReac Type Severity Reaction Status Date / Time No Known Allergies Allergy Verified 04/01/17 18:49 - Medications Medications: Current Medications Acetaminophen (Tylenol 325mg Tab) 650 mg PO Q6H PRN PRN Reason: Temperature Last Admin: 10/25/17 18:18 Dose: 650 mg Albuterol Sulfate (Albuterol 0.083% Inhal Isha (2.5 Mg/3 Ml) Ud) 2.5 mg INH [id number] PRN PRN Reason: Shortness of Breath Aspirin (Aspirin Chewable) 81 mg PO DAILY [facility] Last Admin: 10/27/17 09:13 Dose: 81 mg Atorvastatin Calcium (Lipitor) 20 mg PO DIN [facility] Last Admin: 10/27/17 16:32 Dose: 20 mg Carvedilol (Coreg) 3.125 mg PO 0800,1800 [facility] Cyclobenzaprine HCl (Flexeril) 5 mg PO TID PRN PRN Reason: Pain, severe (8-10) Last Admin: 10/27/17 17:20 Dose: 5 mg Heparin Sodium/Sodium Chloride (Heparin 76930 Units/250ml 1/2 Normal Saline) 25 ,000 units in 250 mls @ 14.288 mls/hr IV .[id number] LA; 18 UNITS/KG/HR PRN Reason: Protocol Last Admin: 10/27/17 09:15 Dose: 25 units/kg/hr, 19.845 mls/hr Vancomycin HCl (Vancomycin 1gm) 1 gm in 250 mls @ 167 mls/hr IVPB 0600,1800 [place] PRN Reason: Protocol Last Admin: 10/27/17 17:21 Dose: 167 mls/hr Norepinephrine Bitartrate 8 mg (/ Sodium Chloride) 508 mls @ 15.24 mls/hr IV .Q24H PRN; Protocol; 4 MCG/MIN PRN Reason: TITRATE PER MD ORDER Last Titration: 10/26/17 09:00 Dose: 0 mcg/min, 0 mls/hr Dobutamine HCl/Dextrose (Dobutamine/Dextrose 5% 500mg/250ml) 500 mg in 250 mls @ 4.714 mls/hr IV .Q24H PRN; Protocol; 2 MCG/KG/MIN PRN Reason: TITRATE PER PROTOCOL Last Admin: 10/26/17 10:41 Dose: 2 mcg/kg/min, 4.714 mls/hr Ceftriaxone Sodium (Rocephin 1 Gram Ivpb) 1 gm in 100 mls @ 100 mls/hr IVPB DAILY LA PRN Reason: Protocol Last Admin: 10/27/17 09:13 Dose: 100 mls/hr Insulin Detemir (Levemir) 40 unit SC HS [facility] Last Admin: 10/26/17 21:51 Dose: 40 units Insulin Human Lispro (Humalog Low) 0 units SC ACHS [facility] PRN Reason: Protocol Last Admin: 10/27/17 16:29 Dose: 4 units Insulin Lispro Protam/Lispro Human (Humalog Mix 75/25) 20 units SC ACB LA Insulin Lispro Protam/Lispro Human (Humalog Mix 75/25) 16 units SC ACD [facility] Last Admin: 10/27/17 16:30 Dose: 16 units Lidocaine (Lidoderm) 1 ea TD DAILY [facility] Last Admin: 10/27/17 09:11 Dose: 1 ea Oxycodone/Acetaminophen (Percocet 5/325 Mg Tab) 1 tab PO Q6H PRN PRN Reason: Pain, moderate (4-7) Stop: 10/29/17 19:57 Last Admin: 10/27/17 06:17 Dose: 1 tab Pantoprazole Sodium (Protonix Ec Tab) 40 mg PO 0600 [facility] Last Admin: 10/27/17 06:17 Dose: 40 mg Results - Vital Signs Recent Vital Signs: Last Vital Signs Temp 98.4 F 10/27/17 16:00 Pulse 87 10/27/17 16:00 Resp 30 H 10/27/17 16:00 BP 131/84 10/27/17 16:00 Pulse Ox 84 L 10/27/17 16:00 - Labs Result Diagrams: 10/27/17 05:30 10/27/17 05:30 Labs: Laboratory Results - last 24 hr 10/26/17 10/26/17 10/27/17 16:18 21:45 05:30 WBC 40.0 H* D RBC 4.20 Hgb 11.8 L Hct 34.4 L MCV 81.9 MCH 28.1 MCHC 34.3 RDW 15.0 H Plt Count 201 MPV 13.0 H Gran % 89.3 H Lymph % (Auto) 8.0 L Baxter % (Auto) 2.5 Eos % (Auto) 0.1 L Baso % (Auto) 0.1 Gran # 35.67 H Lymph # (Auto) 3.2 Baxter # (Auto) 1.0 H Eos # (Auto) 0.1 Baso # (Auto) 0.05 PT INR APTT Sodium Potassium Chloride Carbon Dioxide Anion Gap BUN Creatinine Est GFR ( Amer) Est GFR (Non-Af Amer) POC Glucose (mg/dL) 279 H 404 H* Random Glucose Calcium Phosphorus Magnesium Total Bilirubin AST ALT Alkaline Phosphatase Total Protein Albumin Globulin Albumin/Globulin Ratio 10/27/17 10/27/17 10/27/17 05:30 05:30 08:08 WBC RBC Hgb Hct MCV MCH MCHC RDW Plt Count MPV Gran % Lymph % (Auto) Baxter % (Auto) Eos % (Auto) Baso % (Auto) Gran # Lymph # (Auto) Baxter # (Auto) Eos # (Auto) Baso # (Auto) PT 12.2 INR 1.06 APTT 40.9 H Sodium 139 Potassium 4.0 Chloride 107 Carbon Dioxide 21 Anion Gap 15 BUN 12 Creatinine 0.6 L Est GFR ( Amer) > 60 Est GFR (Non-Af Amer) > 60 POC Glucose (mg/dL) 250 H Random Glucose 259 H Calcium 8.4 Phosphorus 1.7 L Magnesium 2.0 Total Bilirubin 0.4 AST 36 ALT 35 Alkaline Phosphatase 199 H D Total Protein 5.4 L Albumin 3.0 Globulin 2.4 Albumin/Globulin Ratio 1.3 10/27/17 10/27/17 10/27/17 11:42 14:00 16:05 WBC RBC Hgb Hct MCV MCH MCHC RDW Plt Count MPV Gran % Lymph % (Auto) Baxter % (Auto) Eos % (Auto) Baso % (Auto) Gran # Lymph # (Auto) Baxter # (Auto) Eos # (Auto) Baso # (Auto) PT INR APTT 61.6 H Sodium Potassium Chloride Carbon Dioxide Anion Gap BUN Creatinine Est GFR ( Amer) Est GFR (Non-Af Amer) POC Glucose (mg/dL) 247 H 374 H Random Glucose Calcium Phosphorus Magnesium Total Bilirubin AST ALT Alkaline Phosphatase Total Protein Albumin Globulin Albumin/Globulin Ratio
[2017-10-27] MEDS: Insulin Detemir 100 units/ml Vial (Levemir) SC SCH (21:39)
--- NOTE | 2017-10-27 23:45 | PN ---
Copied To: Jodi Burrows MD Attending MD: Jodi Burrows MD DATE: 10/27/2017 ENDO FOLLOWUP NOTE LOCATION: In CCU 129, room 2. SUBJECTIVE: This is a 41-year-old male with recent uncontrolled type 2 insulin-requiring diabetes, presenting here with sudden onset of precordial chest pain and now undergoing cardiac workup as noted thereof. He is also being followed closely for metabolic management because of recent hyperglycemic accelerations as noted thereof. His glucose values are fluctuating and ranging from 247-250 mg/dL. His latest chemistries today showed a BUN of 12, sodium 139, potassium 4, chloride 107, CO2 of 21, glucose 259 and creatinine 0.6. His A1c level is pending at this time. So for now, we will continue the same basal and bolus insulin regimen. So at this time, we will continue the same basal insulin regimen given as Levemir at 40 units subcu at bedtime daily as given. We will continue the low-dose correction scale using Humalog insulin to obviate hypoglycemia and detailed orders have been given. We will also increase his premixed insulin regimen with Humalog 75/25 given as 20 units before breakfast and 16 units before dinner as ordered. We will continue the low-dose correction scale using Humalog insulin as given. We will also obtain serial chemistries and supplement accordingly as needed and in the meantime, continue the IV hydration as ordered. We will follow. Jodi Burrows MD
[2017-10-28] MEDS: Pantoprazole 40 mg EC Tab PO SCH (05:18)
[2017-10-28 05:54] LABS: BASO # 0.09 K/mm3 (0.0-2.0); BASO % 0.3 % (0.0-3.0); EOS # 0.3 (0.0-0.7); EOS % 1.1 % (1.5-5.0); GRAN # 17.13 (1.4-6.5); GRAN % 66.3 % (50.0-68.0); HEMOGLOBIN 11.5 g/dL (14.0-18.0); LYMPH # 6.3 (1.2-3.4); LYMPH % 24.4 % (22.0-35.0); MEAN CELL VOLUME 81.3 fl (80.0-105.0); MEAN CORPUSCULAR HEMOGLOBIN 27.6 pg (25.0-35.0); MEAN PLATELET VOLUME 12.8 fl (7.0-11.0); MONO # 2.1 (0.1-0.6); MONO % 7.9 % (1.0-6.0); RBC 4.16 10^6/uL (3.5-6.1); RED CELL DISTRIBUTION WIDTH 15.1 % (11.5-14.5)
[2017-10-28 06:01] LABS: WHITE BLOOD COUNT 25.9 10^3/ul (4.5-11.0)
[2017-10-28 06:11] LABS: INR 1.1; PARTIAL THROMBOPLASTIN TIME 56.3 Seconds (25.1-36.5); PROTHROMBIN TIME 12.7 SECONDS (9.4-12.5)
[2017-10-28 06:17] LABS: ALB/GLOB RATIO 1.4 (1.1-1.8); ALBUMIN 2.9 g/dL (3.0-4.8); ALT/SGPT 45 U/L (7-56); AST/SGOT 37 U/L (17-59); BLOOD UREA NITROGEN 8 mg/dL (7-21); CALCIUM 8.5 mg/dL (8.4-10.5); GFR NON-AFRICAN AMERICAN > 60
[2017-10-28] MEDS ORDERED: Potassium Chloride 40 mEq/30 ml LIQ UD PO ONE (08:10)
[2017-10-28] MEDS: Insulin Lispro (humaLOG) LOW Coverage SC SCH ×4 (08:10→22:01)
[2017-10-28] MEDS: Insulin Lispro (humaLOG) MIX 75/25(10 ml) SC SCH ×2 (08:13→16:05)
[2017-10-28] MEDS: Lidocaine 5% Patch TD SCH (09:14)
[2017-10-28] MEDS: cefTRIAXone 1 gm 1 GM/100 ML BAG IVPB SCH (09:26)
[2017-10-28] MEDS: Heparin25000 units/250ml 1/2NS 25,000 UNITS/250 ML BAG IV SCH (09:27)
[2017-10-28] MEDS: DOBUTamine 500mg/250ml D5W 500 MG/250 ML BAG IV PRN (10:11)
[2017-10-28] MEDS: Oxycodone/Acetaminophen 5/325 mg Tab PO PRN (12:13)
--- NOTE | 2017-10-28 12:32 | PN ---
Copied To: Campbell Mackenzie MD Attending MD: Campbell Mackenzie MD DATE: 10/28/[address] Jasbir Santoyo. SUBJECTIVE: The patient's shortness of breath improved. He denies any chest pain. PHYSICAL EXAMINATION: VITAL SIGNS: Blood pressure 39058, heart rate 75, temperature 99.4, respirations 20. HEENT: Normocephalic. CHEST: Bibasilar rhonchi. HEART: S1 and S2 regular. EXTREMITIES: Trace leg edema. LABORATORY DATA: Hemoglobin and hematocrit 11.5 and 33.8, white count 25.9, platelet count 125,000. Today's SMA-7 is within normal limits except for glucose of 176 and creatinine 0.6, alkaline phosphatase is elevated at 232. INR is 1.1, PTT 56.3. Echocardiography study revealed moderately dilated left ventricle with ejection fraction in the range of 20-25%. Chest x-ray revealed mild cardiomegaly and mild CHF. A single-lead ICD. Blood cultures negative for Streptococcus anginosus. ASSESSMENT: 1. Dilated cardiomyopathy. 2. Coronary artery disease. 3. Streptococcus bacteremia, rule out bacterial endocarditis. 4. Status post implantable cardioverter-defibrillator placement with recent replacement of the battery generator secondary to infection. RECOMMENDATIONS: Continue current aspirin 81 mg once a day, Dobutrex infusion, intravenous heparin in therapeutic regimen. Lipitor 20 mg once a day, Rocephin at 1 g intravenously daily. The patient will be transferred to telemetry and ROBYN is planned for early next week. Campbell Mackenzie MD
--- NOTE | 2017-10-28 15:25 | PN ---
Copied To: Jodi Burrows MD Attending MD: Jodi Burrows MD DATE: 10/28/2017 LOCATION: ICU 129, room 2. SUBJECTIVE: This is a 41-year-old male with recent uncontrolled type 2 insulin-requiring diabetes presenting here with precordial chest pain and currently undergoing cardiac workup and hemodynamic monitoring at this time. His glycemic levels are fluctuating, but improved as noted overnight and his glucose levels overnight have ranged from 136 this morning to 371 at bedtime last night. His chemistry showed a BUN of 8. Sodium 141, potassium 3.6, chloride 105, CO2 of 26. Glucose 176. Creatinine 0.6. So at this time, we will modify once again his basal and premixed insulin regimen with Humalog 75/25 given as 20 units before breakfast and 16 units before dinner to start today. We will continue the basal insulin given as Levemir at 40 units subcu at bedtime daily as given. We will titrate incrementally as indicated to optimize metabolic control. We will continue the low-dose correction scale using Humalog insulin as given. We will follow. Jodi Burrows MD
--- NOTE | 2017-10-28 15:33 | CP.PCM.PN ---
<Hubert Mayendany - Last Filed: 10/28/17 15:28> Subjective - Date & Time of Evaluation Date of Evaluation: 10/28/17 Time of Evaluation: 15:28 - Subjective Subjective: Medicine progress note for Dr. Tsai: Faheem, PGY - 2, IM resident Patient seen and examined at bedside. Patient had acute bouts of pain overnight , received Percocet at 7:40PM as per nursing. At bedside, patient still complains that his pain is not well controlled with pain regimen. Objective - Vital Signs/Intake and Output Vital Signs (last 24 hours): Temp Pulse Resp BP Pulse Ox 98 F 72 37 H 105/32 L 74 L 10/28/17 12:00 10/28/17 14:00 10/28/17 14:00 10/28/17 12:01 10/28/17 04:00 Intake and Output: 10/28/17 10/28/17 06:59 18:59 Intake Total 1094 250 Output Total 700 Balance 394 250 - Medications Medications: Current Medications Acetaminophen (Tylenol 325mg Tab) 650 mg PO Q6H PRN PRN Reason: Temperature Last Admin: 10/25/17 18:18 Dose: 650 mg Albuterol Sulfate (Albuterol 0.083% Inhal Isha (2.5 Mg/3 Ml) Ud) 2.5 mg INH [id number] PRN PRN Reason: Shortness of Breath Aspirin (Aspirin Chewable) 81 mg PO DAILY [place] Last Admin: 10/28/17 09:13 Dose: 81 mg Atorvastatin Calcium (Lipitor) 20 mg PO DIN [place] Last Admin: 10/27/17 16:32 Dose: 20 mg Carvedilol (Coreg) 3.125 mg PO 0800,1800 [facility] Cyclobenzaprine HCl (Flexeril) 5 mg PO TID PRN PRN Reason: Pain, severe (8-10) Last Admin: 10/28/17 08:19 Dose: 5 mg Hydromorphone HCl (Dilaudid) 1 mg IVP Q4H PRN PRN Reason: Pain, severe (8-10) Heparin Sodium/Sodium Chloride (Heparin 37016 Units/250ml 1/2 Normal Saline) 25 ,000 units in 250 mls @ 14.288 mls/hr IV .[id number] LA; 18 UNITS/KG/HR PRN Reason: Protocol Last Admin: 10/28/17 09:27 Dose: 25 units/kg/hr, 19.845 mls/hr Norepinephrine Bitartrate 8 mg (/ Sodium Chloride) 508 mls @ 15.24 mls/hr IV .Q24H PRN; Protocol; 4 MCG/MIN PRN Reason: TITRATE PER MD ORDER Last Titration: 10/26/17 09:00 Dose: 0 mcg/min, 0 mls/hr Dobutamine HCl/Dextrose (Dobutamine/Dextrose 5% 500mg/250ml) 500 mg in 250 mls @ 4.714 mls/hr IV .Q24H PRN; Protocol; 2 MCG/KG/MIN PRN Reason: TITRATE PER PROTOCOL Last Admin: 10/28/17 10:11 Dose: 2 mcg/kg/min, 4.714 mls/hr Ceftriaxone Sodium (Rocephin 1 Gram Ivpb) 1 gm in 100 mls @ 100 mls/hr IVPB DAILY [place] PRN Reason: Protocol Last Admin: 10/28/17 09:26 Dose: 100 mls/hr Insulin Detemir (Levemir) 40 unit SC HS [facility] Last Admin: 10/27/17 21:39 Dose: 40 units Insulin Human Lispro (Humalog Low) 0 units SC ACHS [facility] PRN Reason: Protocol Last Admin: 10/28/17 12:09 Dose: Not Given Insulin Lispro Protam/Lispro Human (Humalog Mix 75/25) 20 units SC ACB [facility] Last Admin: 10/28/17 08:13 Dose: 20 units Insulin Lispro Protam/Lispro Human (Humalog Mix 75/25) 16 units SC ACD [facility] Last Admin: 10/27/17 16:30 Dose: 16 units Lidocaine (Lidoderm) 1 ea TD DAILY [facility] Last Admin: 10/28/17 09:14 Dose: 1 ea Oxycodone/Acetaminophen (Percocet 5/325 Mg Tab) 1 tab PO Q6H PRN PRN Reason: Pain, moderate (4-7) Stop: 10/29/17 19:57 Last Admin: 10/28/17 12:13 Dose: 1 tab Pantoprazole Sodium (Protonix Ec Tab) 40 mg PO 0600 [facility] Last Admin: 10/28/17 05:18 Dose: 40 mg Vancomycin HCl (Vancocin 25 Mg/Ml (Oral Use)) 250 mg PO QID LA PRN Reason: Protocol - Labs Labs: 10/28/17 05:00 10/28/17 05:00 PT 12.7 SECONDS (9.4-12.5) H 10/28/17 05:00 INR 1.10 10/28/17 05:00 APTT 56.3 Seconds (25.1-36.5) H 10/28/17 05:00 - Constitutional Appears: Well - Head Exam Head Exam: ATRAUMATIC, NORMAL INSPECTION, NORMOCEPHALIC - Eye Exam Eye Exam: EOMI, Normal appearance, PERRL Pupil Exam: NORMAL ACCOMODATION, PERRL - ENT Exam ENT Exam: Mucous Membranes Moist, Normal Exam - Neck Exam Neck Exam: Full ROM, Normal Inspection. absent: Lymphadenopathy - Respiratory Exam Respiratory Exam: Decreased Breath Sounds, Clear to Ausculation Bilateral - Cardiovascular Exam Cardiovascular Exam: REGULAR RHYTHM, +S1, +S2. absent: Murmur - GI/Abdominal Exam GI & Abdominal Exam: Soft, Normal Bowel Sounds. absent: Tenderness - Extremities Exam Extremities Exam: Full ROM, Normal Capillary Refill, Normal Inspection. absent : Joint Swelling, Pedal Edema - Back Exam Back Exam: NORMAL INSPECTION Additional comments: Tenderness to palpation in upper back near T3-T4 region - Neurological Exam Neurological Exam: Alert, Awake, CN II-XII Intact, Normal Gait, Oriented x3 - Psychiatric Exam Psychiatric exam: Normal Affect, Normal Mood - Skin Skin Exam: Dry, Intact, Normal Color, Warm Assessment and Plan - Assessment and Plan (Free Text) Assessment: 41 year old male initially admitted for DKA as well as chest pain with concern for PE vs ACS. Patient was found to have a leukocytosis, which turned out to be sepsis with fever, T max of 105.6 on 10/25. Patient also had a temp of 99.9 on 10/27, but has not technically been febrile since 10/25. Patient's leukocytosis is also trending down, is down to 25.9 today, maxed at 56; Patient has been on Maxipime, but was switched to Rocephin. This information combined indicates that patient's sepsis is getting better. The source of the sepsis at this point is unclear, but given coag negative staph, the top differential right now would be AICD infection, as these tend to live on artificial implants. RE: patient's DKA, AG is closed and is at 10 today with FS this am at 136. Patient is receiving near his home regimen of 120 units total of insulin over 24 hours here at the hospital - 122 total units of insulin over the past 24 hours yesterday, indicating that patient's DKA is resolved and that this glucose is normalizing. RE: patient's troponins, however, patient's last troponin remains elevated at .19; but it maxed at .27. It is uncertain whether this indicates Type II RI from demand ischemia due to infection, or if it this is a result of an NSTEMI or cardiogenic shock. Of note, patient's C. Diff antigen is positive but toxin is negative. Plan: Possible cardiogenic shock, likely 2/2 Systolic Dysfunction due to Ischemic Cardiomyopathy - Continue dobutamine drip - ROBYN scheduled for Monday Elevated troponins, likely 2/2 NSTEMI VS Type II RI VS Cardiogenic shock - Continue heparin drip for now Sepsis, likely 2/2 AICD Infection VS Endocarditis VS C. Diff, VS Mixed Picture or Unknown Etiology - ROBYN scheduled for Monday with Dr. Santoyo - Continue Rocephin for antibiotic coverage - Patient off fluids for now Possible C. Diff Diarrhea - Start oral vancomycin as per most current guidelines - Contact precautions Acute Back Pain - Continue Dilaudid, Lidoderm, Flexeril as per orders and Pain mgmt recommendations DKA - Resolved - Monitor for changes in AG and order BG accordingly if gap re-opens - Continue with insulin regimen of RISS Low + Lispro 20 ACB and 16 ACD with 40 of levemir - Insulin drip discontinued Hx Factor V Leiden - Coumadin on hold 2/2 subtherapeutic INR 1.19 - Continue Heparin drip for bridge to coumadin Hx HTN - Hold coreg right now, patient may have cardiogenic shock Hx CHF s/p AICD placement X 2 - Continue ASA, Lipitor, hold coreg as above Hx DM - Management as per DKA assessment above Hx HLD - Continue lipitor as above Hx Psoriatic Arthritis - Continue pain management as in back pain assessment above GI/DVT PPX -Protonix/Heparin <Keith Tsai - Last Filed: 10/28/17 20:32> Objective - Vital Signs/Intake and Output Vital Signs (last 24 hours): Temp Pulse Resp BP Pulse Ox 97.4 F L 98 H 13 105/32 L 74 L 10/28/17 16:00 10/28/17 18:00 10/28/17 16:00 10/28/17 12:01 10/28/17 04:00 Intake and Output: 10/28/17 10/29/17 18:59 06:59 Intake Total 1059 Output Total 500 Balance 559 - Medications Medications: Current Medications Acetaminophen (Tylenol 325mg Tab) 650 mg PO Q6H PRN PRN Reason: Temperature Last Admin: 10/25/17 18:18 Dose: 650 mg Albuterol Sulfate (Albuterol 0.083% Inhal Isha (2.5 Mg/3 Ml) Ud) 2.5 mg INH [id number] PRN PRN Reason: Shortness of Breath Aspirin (Aspirin Chewable) 81 mg PO DAILY [facility] Last Admin: 10/28/17 09:13 Dose: 81 mg Atorvastatin Calcium (Lipitor) 20 mg PO DIN [place] Last Admin: 10/28/17 17:49 Dose: 20 mg Carvedilol (Coreg) 3.125 mg PO 0800,1800 [facility] Cyclobenzaprine HCl (Flexeril) 5 mg PO TID PRN PRN Reason: Pain, severe (8-10) Last Admin: 10/28/17 08:19 Dose: 5 mg Hydromorphone HCl (Dilaudid) 1 mg IVP Q4H PRN PRN Reason: Pain, severe (8-10) Last Admin: 10/28/17 17:48 Dose: 1 mg Heparin Sodium/Sodium Chloride (Heparin 08349 Units/250ml 1/2 Normal Saline) 25 ,000 units in 250 mls @ 14.288 mls/hr IV .[id number] LA; 18 UNITS/KG/HR PRN Reason: Protocol Last Admin: 10/28/17 09:27 Dose: 25 units/kg/hr, 19.845 mls/hr Norepinephrine Bitartrate 8 mg (/ Sodium Chloride) 508 mls @ 15.24 mls/hr IV .Q24H PRN; Protocol; 4 MCG/MIN PRN Reason: TITRATE PER MD ORDER Last Titration: 10/26/17 09:00 Dose: 0 mcg/min, 0 mls/hr Dobutamine HCl/Dextrose (Dobutamine/Dextrose 5% 500mg/250ml) 500 mg in 250 mls @ 4.714 mls/hr IV .Q24H PRN; Protocol; 2 MCG/KG/MIN PRN Reason: TITRATE PER PROTOCOL Last Admin: 10/28/17 10:11 Dose: 2 mcg/kg/min, 4.714 mls/hr Ceftriaxone Sodium (Rocephin 1 Gram Ivpb) 1 gm in 100 mls @ 100 mls/hr IVPB DAILY [facility] PRN Reason: Protocol Last Admin: 10/28/17 09:26 Dose: 100 mls/hr Insulin Detemir (Levemir) 40 unit SC HS [facility] Last Admin: 10/27/17 21:39 Dose: 40 units Insulin Human Lispro (Humalog Low) 0 units SC ACHS [facility] PRN Reason: Protocol Last Admin: 10/28/17 16:05 Dose: 3 units Insulin Lispro Protam/Lispro Human (Humalog Mix 75/25) 20 units SC ACB [facility] Last Admin: 10/28/17 08:13 Dose: 20 units Insulin Lispro Protam/Lispro Human (Humalog Mix 75/25) 16 units SC ACD [facility] Last Admin: 10/28/17 16:05 Dose: 16 units Lidocaine (Lidoderm) 1 ea TD DAILY [facility] Last Admin: 10/28/17 09:14 Dose: 1 ea Oxycodone/Acetaminophen (Percocet 5/325 Mg Tab) 1 tab PO Q6H PRN PRN Reason: Pain, moderate (4-7) Stop: 10/29/17 19:57 Last Admin: 10/28/17 12:13 Dose: 1 tab Pantoprazole Sodium (Protonix Ec Tab) 40 mg PO 0600 [facility] Last Admin: 10/28/17 05:18 Dose: 40 mg Vancomycin HCl (Vancocin 25 Mg/Ml (Oral Use)) 250 mg PO QID [facility] PRN Reason: Protocol Last Admin: 10/28/17 19:08 Dose: 250 mg - Labs Labs: 10/28/17 05:00 10/28/17 05:00 PT 12.7 SECONDS (9.4-12.5) H 10/28/17 05:00 INR 1.10 10/28/17 05:00 APTT 56.3 Seconds (25.1-36.5) H 10/28/17 05:00 Attending/Attestation - Attestation I have personally seen and examined this patient.: Yes I have fully participated in the care of the patient.: Yes I have reviewed all pertinent clinical information, including history, physical exam and plan: Yes Notes (Text): 10/28/17 20:30 Patient seen and examined at bedside. Labs, vitals and notes reviewed. No new complaints and he feels better overall. Plan for CT L/S to evaluate for back pain as well as continue antibiotics including P.O vancomycin for C.diff. Multi- speciality follow up ongoing. Agree with the plan as discussed and outlined by the resident.
--- NOTE | 2017-10-28 17:35 | CP.PCM.PN ---
Subjective - Date & Time of Evaluation Date of Evaluation: 10/28/17 Time of Evaluation: 15:30 - Subjective Subjective: Infectious Disease Follow Up: October 28, 2017 41 yo male with extensive PMHx that includes Factor V Leiden s/p DVTs/PEs/IVC filter/L ventricular thrombectomy (2004) on Coumadin, HTN, DM, CHF s/p AICD placement, AICD replacement 2/2 infected hardware [place] [facility] [place] psoriatic arthritis, HLD, and splenectomy (2003) who presents with complaint of shortness of breath and left-sided chest pain x3 days. As per patient, he started to feel unwell 3 weeks ago after receiving last Cosentyn injection. He apparently received Bentyl and Prednisone for 5 days with 10 days of Augmentin. No improvement. Had SOB at home and high glucose levels above 400. Claimed poor oral intake. Elevated trop in ER here at [facility] [place]. Question of medication compliance as the patient's pharmacy has several medications listed there that have not been filled in the past year. Tachcardia under control today. Still with episodes of hypotension. Remains on Vancomycin and Rocephin for antibiotic coverage. Cultures are still pending. Still complaining of back pain that he rates at 8 out of 10. Cultures showing streptococcus anginosus growth. C. Diff studies showing positive antigen but negative toxin. Noted oral Vancomycin started. Blood cultures showing gram positive cocci. Verigene suggesting Streptococci. Objective - Vital Signs/Intake and Output Vital Signs (last 24 hours): Temp Pulse Resp BP Pulse Ox 97.4 F L 64 13 105/32 L 74 L 10/28/17 16:00 10/28/17 16:00 10/28/17 16:00 10/28/17 12:01 10/28/17 04:00 Intake and Output: 10/28/17 10/28/17 06:59 18:59 Intake Total 1094 1059 Output Total 700 500 Balance 394 559 - Medications Medications: Current Medications Acetaminophen (Tylenol 325mg Tab) 650 mg PO Q6H PRN PRN Reason: Temperature Last Admin: 10/25/17 18:18 Dose: 650 mg Albuterol Sulfate (Albuterol 0.083% Inhal Isha (2.5 Mg/3 Ml) Ud) 2.5 mg INH [id number] PRN PRN Reason: Shortness of Breath Aspirin (Aspirin Chewable) 81 mg PO DAILY [facility] Last Admin: 10/28/17 09:13 Dose: 81 mg Atorvastatin Calcium (Lipitor) 20 mg PO DIN [facility] Last Admin: 10/27/17 16:32 Dose: 20 mg Carvedilol (Coreg) 3.125 mg PO 0800,1800 [facility] Cyclobenzaprine HCl (Flexeril) 5 mg PO TID PRN PRN Reason: Pain, severe (8-10) Last Admin: 10/28/17 08:19 Dose: 5 mg Hydromorphone HCl (Dilaudid) 1 mg IVP Q4H PRN PRN Reason: Pain, severe (8-10) Heparin Sodium/Sodium Chloride (Heparin 99497 Units/250ml 1/2 Normal Saline) 25 ,000 units in 250 mls @ 14.288 mls/hr IV .[id number] LA; 18 UNITS/KG/HR PRN Reason: Protocol Last Admin: 10/28/17 09:27 Dose: 25 units/kg/hr, 19.845 mls/hr Norepinephrine Bitartrate 8 mg (/ Sodium Chloride) 508 mls @ 15.24 mls/hr IV .Q24H PRN; Protocol; 4 MCG/MIN PRN Reason: TITRATE PER MD ORDER Last Titration: 10/26/17 09:00 Dose: 0 mcg/min, 0 mls/hr Dobutamine HCl/Dextrose (Dobutamine/Dextrose 5% 500mg/250ml) 500 mg in 250 mls @ 4.714 mls/hr IV .Q24H PRN; Protocol; 2 MCG/KG/MIN PRN Reason: TITRATE PER PROTOCOL Last Admin: 10/28/17 10:11 Dose: 2 mcg/kg/min, 4.714 mls/hr Ceftriaxone Sodium (Rocephin 1 Gram Ivpb) 1 gm in 100 mls @ 100 mls/hr IVPB DAILY [facility] PRN Reason: Protocol Last Admin: 10/28/17 09:26 Dose: 100 mls/hr Insulin Detemir (Levemir) 40 unit SC HS [facility] Last Admin: 10/27/17 21:39 Dose: 40 units Insulin Human Lispro (Humalog Low) 0 units SC ACHS [facility] PRN Reason: Protocol Last Admin: 10/28/17 16:05 Dose: 3 units Insulin Lispro Protam/Lispro Human (Humalog Mix 75/25) 20 units SC ACB [facility] Last Admin: 10/28/17 08:13 Dose: 20 units Insulin Lispro Protam/Lispro Human (Humalog Mix 75/25) 16 units SC ACD [facility] Last Admin: 10/28/17 16:05 Dose: 16 units Lidocaine (Lidoderm) 1 ea TD DAILY [facility] Last Admin: 10/28/17 09:14 Dose: 1 ea Oxycodone/Acetaminophen (Percocet 5/325 Mg Tab) 1 tab PO Q6H PRN PRN Reason: Pain, moderate (4-7) Stop: 10/29/17 19:57 Last Admin: 10/28/17 12:13 Dose: 1 tab Pantoprazole Sodium (Protonix Ec Tab) 40 mg PO 0600 [facility] Last Admin: 10/28/17 05:18 Dose: 40 mg Vancomycin HCl (Vancocin 25 Mg/Ml (Oral Use)) 250 mg PO QID [facility] PRN Reason: Protocol - Labs Labs: 10/28/17 05:00 10/28/17 05:00 PT 12.7 SECONDS (9.4-12.5) H 10/28/17 05:00 INR 1.10 10/28/17 05:00 APTT 56.3 Seconds (25.1-36.5) H 10/28/17 05:00 - Constitutional Appears: Chronically Ill - Head Exam Head Exam: ATRAUMATIC, NORMOCEPHALIC - Eye Exam Eye Exam: EOMI, PERRL Pupil Exam: NORMAL ACCOMODATION, PERRL - ENT Exam ENT Exam: Mucous Membranes Moist, Normal External Ear Exam, TM's Normal Bilaterally - Neck Exam Neck Exam: Full ROM, Normal Inspection - Respiratory Exam Respiratory Exam: Clear to Ausculation Bilateral, NORMAL BREATHING PATTERN. absent: Rales, Rhonchi, Wheezes - Cardiovascular Exam Cardiovascular Exam: REGULAR RHYTHM, RRR, +S1, +S2 - GI/Abdominal Exam GI & Abdominal Exam: Soft, Normal Bowel Sounds. absent: Distended, Tenderness - Extremities Exam Extremities Exam: Full ROM, Normal Inspection - Neurological Exam Neurological Exam: Alert, Awake, CN II-XII Intact, Oriented x3 - Psychiatric Exam Psychiatric exam: Flat Affect - Skin Skin Exam: Intact, Normal Color Assessment and Plan - Assessment and Plan (Free Text) Assessment: 41 yo male with vague complaints of feeling unwell with significant leukocytosis of 29. Extensive PMHx of L ventricular thromboectomy (2003), R Femur fracture repair (2003), IVC filter placement, arthoscopic debridement, synovectomy for right septic knee joint, splenectomy 2003, tonsillectomy 2016, AICD placement, AICD removal and replacement (2/2 infected hardware). The patient with complaints of SOB and left sided chest pain. No specific findings of the Chest X-ray. Supportive care. Continued on Cefepime and IV Vancomycin at this time. Although not tachycardia today, the patient still has hypotensive episodes. Given a single dose of Gentamicin during this hospitalization. Leukocytosis of 40 today. High of 56.8. Broad spectrum antibiotics for sepsis of unclear source. Cultures are showing gram positive diplococci. Possible Streptococci. On IV Vancomycin and Ceftriaxone. Still awaiting final cultures. Patient with back pain still that he is currently rating at 8 out of 10. Lund cultures. May need further imaging studies with CT scan. CT angio negative for PE. CT abdomen and pelvis was unremarkable. C. Diff testing was done showing positive antigen but negative toxin. Started on PO Vancomycin. 125mg PO q6hrs 10 day course. Thank you for allowing me to participate in the care of the patient, we will follow with you.
[2017-10-28] MEDS: HYDROmorphone 1 mg/ml ISec IVP PRN ×2 (17:48→22:00)
[2017-10-28] MEDS: Vancomycin 25 MG/ML PO SCH ×2 (19:08→22:03)
[2017-10-28] MEDS: Insulin Detemir 100 units/ml Vial (Levemir) SC SCH (21:46)
[2017-10-29] MEDS: Heparin25000 units/250ml 1/2NS 25,000 UNITS/250 ML BAG IV SCH ×2 (00:03→13:52)
[2017-10-29] MEDS: HYDROmorphone 1 mg/ml ISec IVP PRN ×5 (02:48→22:52)
[2017-10-29] MEDS: Pantoprazole 40 mg EC Tab PO SCH (05:26)
[2017-10-29 06:41] LABS: BASO # 0.13 K/mm3 (0.0-2.0); BASO % 0.8 % (0.0-3.0); EOS # 0.4 (0.0-0.7); EOS % 2.1 % (1.5-5.0); GRAN # 9.27 (1.4-6.5); GRAN % 56.3 % (50.0-68.0); HEMOGLOBIN 10.5 g/dL (14.0-18.0); LYMPH # 4.7 (1.2-3.4); LYMPH % 28.6 % (22.0-35.0); MEAN CELL VOLUME 82.6 fl (80.0-105.0); MEAN CORPUSCULAR HEMOGLOBIN 27.6 pg (25.0-35.0); MEAN CORPUSCULAR HGB CONC 33.4 g/dl (31.0-37.0); MEAN PLATELET VOLUME 12.3 fl (7.0-11.0); MONO % 12.2 % (1.0-6.0); RBC 3.8 10^6/uL (3.5-6.1); RED CELL DISTRIBUTION WIDTH 15.3 % (11.5-14.5); WHITE BLOOD COUNT 16.5 10^3/ul (4.5-11.0)
[2017-10-29 07:02] LABS: ALB/GLOB RATIO 1.4 (1.1-1.8); ALBUMIN 2.8 g/dL (3.0-4.8); ALT/SGPT 45 U/L (7-56); AST/SGOT 27 U/L (17-59); BLOOD UREA NITROGEN 9 mg/dL (7-21); CALCIUM 8.5 mg/dL (8.4-10.5); GFR NON-AFRICAN AMERICAN > 60
[2017-10-29] MEDS ORDERED: Insulin Regular 1 UNITS/0.01 ML ML SC STA (07:51)
[2017-10-29] MEDS: Insulin Lispro (humaLOG) LOW Coverage SC SCH ×3 (09:04→16:43)
[2017-10-29] MEDS: Lidocaine 5% Patch TD SCH (09:16)
[2017-10-29] MEDS: cefTRIAXone 1 gm 1 GM/100 ML BAG IVPB SCH (09:16)
--- NOTE | 2017-10-29 10:32 | CT ---
CT lumbar spine without IV contrast Indication: Lower back pain bilateral Comparison: CTA chest performed 10/24/17, CT abdomen and pelvis without contrast performed 10/24/17 Technique: Noncontrast axial images of the lumbar spine were provided. Sagittal and coronal reformatted images were generated and reviewed. This CT exam was performed using 1 or more of the following dose reduction techniques: Automated exposure control, adjustment of the MAA and/or kV according to patient size, and/or use of iterative reconstruction technique. Total exam DLP: 1043.24 MGy-cm Findings: Vertebral body heights appear within normal limits. Alignment appears satisfactory. No acute fracture or subluxation identified. Paraspinal soft tissues appear unremarkable. Limited visualization of the intra-abdominal and intrapelvic contents: IVC filter. Small pelvic free fluid, unusual in a young male patient. Partially imaged lung bases reveal right basilar atelectasis. Impression: No acute fracture or subluxation identified. Limited visualization of the intra-abdominal and intrapelvic contents: IVC filter. Small pelvic free fluid, unusual in a young male patient. Mild right basilar atelectasis.
--- NOTE | 2017-10-29 10:34 | CP.PCM.PN ---
<Hubert Mayendany - Last Filed: 10/29/17 10:29> Subjective - Date & Time of Evaluation Date of Evaluation: 10/29/17 Time of Evaluation: 10:29 - Subjective Subjective: Medicine progress note for Dr. Tsai: Faheem, PGY - 2 Patient seen and examined at bedside. Patient sugars were trending upward overnight; Patient otherwise had no acute complaints overnight. Patient states that his pain has been much better controlled on the Dilaudid, and he got his last dose at 2:48A. He is still having pleuritic chest pain, but is overall feeling better. Objective - Vital Signs/Intake and Output Vital Signs (last 24 hours): Temp Pulse Resp BP Pulse Ox 98.6 F 91 H 18 134/92 H 100 10/29/17 06:00 10/29/17 06:00 10/29/17 06:00 10/29/17 06:00 10/29/17 06:00 Intake and Output: 10/29/17 10/29/17 06:59 18:59 Intake Total 1529 Balance 1529 - Medications Medications: Current Medications Acetaminophen (Tylenol 325mg Tab) 650 mg PO Q6H PRN PRN Reason: Temperature Last Admin: 10/25/17 18:18 Dose: 650 mg Albuterol Sulfate (Albuterol 0.083% Inhal Isha (2.5 Mg/3 Ml) Ud) 2.5 mg INH [id number] PRN PRN Reason: Shortness of Breath Aspirin (Aspirin Chewable) 81 mg PO DAILY [facility] Last Admin: 10/29/17 09:15 Dose: 81 mg Atorvastatin Calcium (Lipitor) 20 mg PO DIN [facility] Last Admin: 10/28/17 17:49 Dose: 20 mg Carvedilol (Coreg) 3.125 mg PO 0800,1800 [facility] Cyclobenzaprine HCl (Flexeril) 5 mg PO TID PRN PRN Reason: Pain, severe (8-10) Last Admin: 10/28/17 08:19 Dose: 5 mg Hydromorphone HCl (Dilaudid) 1 mg IVP Q4H PRN PRN Reason: Pain, severe (8-10) Last Admin: 10/29/17 09:15 Dose: 1 mg Heparin Sodium/Sodium Chloride (Heparin 37755 Units/250ml 1/2 Normal Saline) 25 ,000 units in 250 mls @ 14.288 mls/hr IV .[id number] LA; 18 UNITS/KG/HR PRN Reason: Protocol Last Admin: 10/29/17 00:03 Dose: 25 units/kg/hr, 19.845 mls/hr Norepinephrine Bitartrate 8 mg (/ Sodium Chloride) 508 mls @ 15.24 mls/hr IV .Q24H PRN; Protocol; 4 MCG/MIN PRN Reason: TITRATE PER MD ORDER Last Titration: 10/26/17 09:00 Dose: 0 mcg/min, 0 mls/hr Dobutamine HCl/Dextrose (Dobutamine/Dextrose 5% 500mg/250ml) 500 mg in 250 mls @ 4.714 mls/hr IV .Q24H PRN; Protocol; 2 MCG/KG/MIN PRN Reason: TITRATE PER PROTOCOL Last Admin: 10/28/17 10:11 Dose: 2 mcg/kg/min, 4.714 mls/hr Ceftriaxone Sodium (Rocephin 1 Gram Ivpb) 1 gm in 100 mls @ 100 mls/hr IVPB DAILY [facility] PRN Reason: Protocol Last Admin: 10/29/17 09:16 Dose: 100 mls/hr Insulin Detemir (Levemir) 40 unit SC HS [facility] Last Admin: 10/28/17 21:46 Dose: 40 units Insulin Human Lispro (Humalog Low) 0 units SC ACHS [facility] PRN Reason: Protocol Last Admin: 10/29/17 09:04 Dose: Not Given Insulin Lispro Protam/Lispro Human (Humalog Mix 75/25) 20 units SC ACB [facility] Last Admin: 10/28/17 08:13 Dose: 20 units Insulin Lispro Protam/Lispro Human (Humalog Mix 75/25) 16 units SC ACD [facility] Last Admin: 10/28/17 16:05 Dose: 16 units Lidocaine (Lidoderm) 1 ea TD DAILY [facility] Last Admin: 10/29/17 09:16 Dose: Not Given Oxycodone/Acetaminophen (Percocet 5/325 Mg Tab) 1 tab PO Q6H PRN PRN Reason: Pain, moderate (4-7) Stop: 10/29/17 19:57 Last Admin: 10/28/17 12:13 Dose: 1 tab Pantoprazole Sodium (Protonix Ec Tab) 40 mg PO 0600 [facility] Last Admin: 10/29/17 05:26 Dose: 40 mg Vancomycin HCl (Vancocin 25 Mg/Ml (Oral Use)) 250 mg PO QID [facility] PRN Reason: Protocol Last Admin: 10/28/17 22:03 Dose: 250 mg - Labs Labs: 10/29/17 06:15 10/29/17 06:15 PT 12.7 SECONDS (9.4-12.5) H 10/28/17 05:00 INR 1.10 10/28/17 05:00 APTT 48.8 Seconds (25.1-36.5) H 10/29/17 06:15 - Constitutional Appears: Well - Head Exam Head Exam: ATRAUMATIC, NORMAL INSPECTION, NORMOCEPHALIC - Eye Exam Eye Exam: EOMI, Normal appearance, PERRL Pupil Exam: NORMAL ACCOMODATION, PERRL - ENT Exam ENT Exam: Mucous Membranes Moist, Normal Exam - Neck Exam Neck Exam: Full ROM, Normal Inspection. absent: Lymphadenopathy - Respiratory Exam Respiratory Exam: Clear to Ausculation Bilateral, NORMAL BREATHING PATTERN - Cardiovascular Exam Cardiovascular Exam: REGULAR RHYTHM, +S1, +S2. absent: Murmur - GI/Abdominal Exam GI & Abdominal Exam: Soft, Normal Bowel Sounds. absent: Tenderness - Extremities Exam Extremities Exam: Full ROM, Normal Capillary Refill, Normal Inspection. absent : Joint Swelling, Pedal Edema - Back Exam Back Exam: NORMAL INSPECTION Additional comments: Tenderness to palpation in upper back near T3-T4 region - Neurological Exam Neurological Exam: Alert, Awake, CN II-XII Intact, Normal Gait, Oriented x3 - Psychiatric Exam Psychiatric exam: Normal Affect, Normal Mood - Skin Skin Exam: Dry, Intact, Normal Color, Warm Assessment and Plan - Assessment and Plan (Free Text) Assessment: 41 year old male initially admitted for DKA as well as chest pain with concern for PE vs ACS. Patient was found to have a leukocytosis, which turned out to be sepsis with fever, T max of 105.6 on 10/25. Patient also had a temp of 99.9 on 10/27, but has not technically been febrile since 10/25. Patient's leukocytosis is also trending down, is down to 25.9 today, maxed at 56; Patient has been on Maxipime, but was switched to Rocephin. This information combined indicates that patient's sepsis is getting better. The source of the sepsis at this point is unclear, but given coag negative staph, the top differential right now would be AICD infection, as these tend to live on artificial implants. RE: patient's DKA, AG is closed and is at 7. However, FS and random glucose have been severely elevated today and overnight, with Random glucose being the highest it's been since 10/25. Patient is receiving near his home regimen of 120 units total of insulin over 24 hours here at the hospital - 121 total units of insulin over the past 24 hours yesterday, 10/28. However, since patient's glucose is increasing again, we might need to readdress his regimen. RE: patient's troponins, however, patient's last troponin remains elevated at .19; but it maxed at .27. It is uncertain whether this indicates Type II WA from demand ischemia due to infection, or if it this is a result of an NSTEMI or cardiogenic shock. Of note, patient's C. Diff antigen is positive but toxin is negative. Of note, patient pain is well controlled today, 10/29, with new regimen including Dilaudid Plan: Possible cardiogenic shock, likely 2/2 Systolic Dysfunction due to Ischemic Cardiomyopathy - Continue dobutamine drip, non-titrating because patient is on tele floors - ROBYN scheduled for Monday Elevated troponins, likely 2/2 NSTEMI VS Type II WA VS Cardiogenic shock - Continue heparin drip for now Sepsis, likely 2/2 AICD Infection VS Endocarditis VS C. Diff, VS Mixed Picture or Unknown Etiology - ROBYN scheduled for Monday with Dr. Santoyo - Continue Rocephin for antibiotic coverage - Patient off fluids for now Possible C. Diff Diarrhea - Start oral vancomycin as per most current guidelines - Contact precautions Hypokalemia - Resolved - Will continue to monitor with CMPs Acute Back Pain - Continue Dilaudid, Lidoderm, Flexeril as per orders and Pain mgmt recommendations - Lumbar and sacral CT's were obtained, official read pending Acute Productive Cough - Will order chest XR DKA - Resolved - Monitor for changes in AG and order BG accordingly if gap re-opens - Continue with insulin regimen of RISS Low + Lispro 20 ACB and 16 ACD with 40 of levemir - Insulin drip discontinued Hx Factor V Leiden - Coumadin on hold 2/2 subtherapeutic INR 1.19 - Continue Heparin drip for bridge to coumadin Hx HTN - Hold coreg right now, patient may have cardiogenic shock Hx CHF s/p AICD placement X 2 - Continue ASA, Lipitor, hold coreg as above Hx DM - Management as per DKA assessment above Hx HLD - Continue lipitor as above Hx Psoriatic Arthritis - Continue pain management as in back pain assessment above GI/DVT PPX -Protonix/Heparin <Keith Tsai - Last Filed: 10/29/17 21:50> Objective - Vital Signs/Intake and Output Vital Signs (last 24 hours): Temp Pulse Resp BP Pulse Ox 99.1 F 77 17 137/91 H 100 10/29/17 18:00 10/29/17 18:00 10/29/17 18:00 10/29/17 18:00 10/29/17 18:00 Intake and Output: 10/29/17 10/30/17 18:59 06:59 Intake Total 1150 Balance 1150 - Medications Medications: Current Medications Acetaminophen (Tylenol 325mg Tab) 650 mg PO Q6H PRN PRN Reason: Temperature Last Admin: 10/25/17 18:18 Dose: 650 mg Albuterol Sulfate (Albuterol 0.083% Inhal Isha (2.5 Mg/3 Ml) Ud) 2.5 mg INH [id number] PRN PRN Reason: Shortness of Breath Aspirin (Aspirin Chewable) 81 mg PO DAILY [facility] Last Admin: 10/29/17 09:15 Dose: 81 mg Atorvastatin Calcium (Lipitor) 20 mg PO DIN [facility] Last Admin: 10/29/17 17:30 Dose: 20 mg Carvedilol (Coreg) 3.125 mg PO 0800,1800 [facility] Cyclobenzaprine HCl (Flexeril) 5 mg PO TID PRN PRN Reason: Pain, severe (8-10) Last Admin: 10/28/17 08:19 Dose: 5 mg Hydromorphone HCl (Dilaudid) 1 mg IVP Q4H PRN PRN Reason: Pain, severe (8-10) Last Admin: 10/29/17 18:44 Dose: 1 mg Heparin Sodium/Sodium Chloride (Heparin 55058 Units/250ml 1/2 Normal Saline) 25 ,000 units in 250 mls @ 14.288 mls/hr IV .[id number] LA; 18 UNITS/KG/HR PRN Reason: Protocol Last Admin: 10/29/17 13:52 Dose: 27 units/kg/hr, 21.432 mls/hr Norepinephrine Bitartrate 8 mg (/ Sodium Chloride) 508 mls @ 15.24 mls/hr IV .Q24H PRN; Protocol; 4 MCG/MIN PRN Reason: TITRATE PER MD ORDER Last Titration: 10/26/17 09:00 Dose: 0 mcg/min, 0 mls/hr Dobutamine HCl/Dextrose (Dobutamine/Dextrose 5% 500mg/250ml) 500 mg in 250 mls @ 4.714 mls/hr IV .Q24H PRN; Protocol; 2 MCG/KG/MIN PRN Reason: TITRATE PER PROTOCOL Last Admin: 10/28/17 10:11 Dose: 2 mcg/kg/min, 4.714 mls/hr Ceftriaxone Sodium (Rocephin 1 Gram Ivpb) 1 gm in 100 mls @ 100 mls/hr IVPB DAILY [facility] PRN Reason: Protocol Last Admin: 10/29/17 09:16 Dose: 100 mls/hr Insulin Detemir (Levemir) 40 unit SC HS [facility] Last Admin: 10/28/17 21:46 Dose: 40 units Insulin Human Regular (Humulin R Med) 0 units SC ACHS [facility] PRN Reason: Protocol Insulin Lispro Protam/Lispro Human (Humalog Mix 75/25) 22 units SC ACB [facility] Insulin Lispro Protam/Lispro Human (Humalog Mix 75/25) 18 units SC ACD [facility] Lidocaine (Lidoderm) 1 ea TD DAILY [facility] Last Admin: 10/29/17 09:16 Dose: Not Given Losartan Potassium (Cozaar) 12.5 mg PO DAILY [facility] Last Admin: 10/29/17 13:41 Dose: 12.5 mg Pantoprazole Sodium (Protonix Ec Tab) 40 mg PO 0600 [facility] Last Admin: 10/29/17 05:26 Dose: 40 mg Vancomycin HCl (Vancocin 25 Mg/Ml (Oral Use)) 250 mg PO QID [facility] PRN Reason: Protocol Last Admin: 10/29/17 17:30 Dose: 250 mg - Labs Labs: 10/29/17 06:15 10/29/17 06:15 PT 12.7 SECONDS (9.4-12.5) H 10/28/17 05:00 INR 1.10 10/28/17 05:00 APTT 74.8 Seconds (25.1-36.5) H 10/29/17 16:54 Attending/Attestation - Attestation I have personally seen and examined this patient.: Yes I have fully participated in the care of the patient.: Yes I have reviewed all pertinent clinical information, including history, physical exam and plan: Yes Notes (Text): 10/29/17 21:46 Patient seen and examined at bedside. Overall feels better. No overnight issues reported except 1 episode of loose stools today. Back pain is better today. FSBS elevated and ISS and insulin regimen adjusted. Continue Vancomycin/ Rocephin regimen. Awaiting ROBYN on Monday. Multi-speciality follow up ongoing. Agree with the plan of care as discussed and outlined by the resident.
[2017-10-29] MEDS: Vancomycin 25 MG/ML PO SCH ×4 (10:57→23:27)
[2017-10-29] MEDS: Insulin Lispro (humaLOG) MIX 75/25(10 ml) SC SCH ×2 (10:58→17:29)
--- NOTE | 2017-10-29 11:01 | CT ---
Date of service: 10/29/17 CT thoracic spine without IV contrast Indication: Upper back pain bilateral Comparison: CT chest performed 10/25/15 Technique: Noncontrast axial images of the thoracic spine were provided. Sagittal and coronal reformatted images were generated and reviewed. This CT exam was performed using 1 or more of the following dose reduction techniques: Automated exposure control, adjustment of the MAA and/or kV according to patient size, and/or use of iterative reconstruction technique. Total exam DLP: 951.61 MGy-cm Findings: L2 sclerotic focus, may be bone island. Vertebral body heights appear within normal limits. Alignment appears satisfactory. No acute fracture or subluxation identified. Paraspinal soft tissues appear unremarkable. Limited visualization of intrathoracic and intra-abdominal contents: median sternotomy wires ; partially imaged right IJ approach central venous catheter ; left-sided AICD. Cardiomegaly. Distal esophageal wall thickening. Left upper quadrant surgical clips. Cholelithiasis. Impression: No acute fracture or subluxation identified. Additional findings as above.
--- NOTE | 2017-10-29 12:37 | RAD ---
HISTORY: Productive cough COMPARISON: Chest x-ray performed 10/25/17 TECHNIQUE: Chest, one view. FINDINGS: Right IJ approach central venous catheter extends expected location of the SVC. LUNGS: Mild pulmonary venous congestion. Please note that chest x-ray has limited sensitivity for the detection of pulmonary masses. PLEURA: No significant pleural effusion identified. No definite pneumothorax . CARDIOVASCULAR: Left-sided AICD. Median sternotomy wires. Cardiomegaly. Bilateral hilar prominence. OSSEOUS STRUCTURES: No acute osseous abnormality identified. VISUALIZED UPPER ABDOMEN: Next surgical clips. OTHER FINDINGS: None. IMPRESSION: Right IJ approach central venous catheter. Left-sided AICD. Cardiomegaly. Bilateral hilar prominence. Mild pulmonary venous congestion.
--- NOTE | 2017-10-29 16:21 | CP.PCM.PN ---
Subjective - Date & Time of Evaluation Date of Evaluation: 10/29/17 Time of Evaluation: 15:30 - Subjective Subjective: Infectious Disease Follow Up: October 29, 2017 41 yo male with extensive PMHx that includes Factor V Leiden s/p DVTs/PEs/IVC filter/L ventricular thrombectomy (2004) on Coumadin, HTN, DM, CHF s/p AICD placement, AICD replacement 2/2 [place] [facility] [place] psoriatic arthritis, HLD, and splenectomy (2003) who presents with complaint of shortness of breath and left-sided chest pain x3 days. As per patient, he started to feel unwell 3 weeks ago after receiving last Cosentyn injection. He apparently received Bentyl and Prednisone for 5 days with 10 days of Augmentin. No improvement. Had SOB at home and high glucose levels above 400. Claimed poor oral intake. Elevated trop in ER here at [facility]. Question of medication compliance as the patient's pharmacy has several medications listed there that have not been filled in the past year. Tachcardia under control today. Still with episodes of hypotension. Remains on Vancomycin and Rocephin for antibiotic coverage. Complains of less back pain today. Cultures showing streptococcus anginosus growth. C. Diff studies showing positive antigen but negative toxin. Noted oral Vancomycin started. Blood cultures showing Streptococci Anginosus. For ROBYN on Monday to rule out endocarditis. WBC is down to 16.5 today. Objective - Vital Signs/Intake and Output Vital Signs (last 24 hours): Temp Pulse Resp BP Pulse Ox 98.4 F 108 H 16 137/81 100 10/29/17 12:00 10/29/17 14:00 10/29/17 12:00 10/29/17 13:41 10/29/17 06:00 Intake and Output: 10/29/17 10/29/17 06:59 18:59 Intake Total 1529 250 Balance 1529 250 - Medications Medications: Current Medications Acetaminophen (Tylenol 325mg Tab) 650 mg PO Q6H PRN PRN Reason: Temperature Last Admin: 10/25/17 18:18 Dose: 650 mg Albuterol Sulfate (Albuterol 0.083% Inhal Isha (2.5 Mg/3 Ml) Ud) 2.5 mg INH [id number] PRN PRN Reason: Shortness of Breath Aspirin (Aspirin Chewable) 81 mg PO DAILY [facility] Last Admin: 10/29/17 09:15 Dose: 81 mg Atorvastatin Calcium (Lipitor) 20 mg PO DIN [facility] Last Admin: 10/28/17 17:49 Dose: 20 mg Carvedilol (Coreg) 3.125 mg PO 0800,1800 [facility] Cyclobenzaprine HCl (Flexeril) 5 mg PO TID PRN PRN Reason: Pain, severe (8-10) Last Admin: 10/28/17 08:19 Dose: 5 mg Hydromorphone HCl (Dilaudid) 1 mg IVP Q4H PRN PRN Reason: Pain, severe (8-10) Last Admin: 10/29/17 13:47 Dose: 1 mg Heparin Sodium/Sodium Chloride (Heparin 21305 Units/250ml 1/2 Normal Saline) 25 ,000 units in 250 mls @ 14.288 mls/hr IV .[id number] LA; 18 UNITS/KG/HR PRN Reason: Protocol Last Admin: 10/29/17 13:52 Dose: 27 units/kg/hr, 21.432 mls/hr Norepinephrine Bitartrate 8 mg (/ Sodium Chloride) 508 mls @ 15.24 mls/hr IV .Q24H PRN; Protocol; 4 MCG/MIN PRN Reason: TITRATE PER MD ORDER Last Titration: 10/26/17 09:00 Dose: 0 mcg/min, 0 mls/hr Dobutamine HCl/Dextrose (Dobutamine/Dextrose 5% 500mg/250ml) 500 mg in 250 mls @ 4.714 mls/hr IV .Q24H PRN; Protocol; 2 MCG/KG/MIN PRN Reason: TITRATE PER PROTOCOL Last Admin: 10/28/17 10:11 Dose: 2 mcg/kg/min, 4.714 mls/hr Ceftriaxone Sodium (Rocephin 1 Gram Ivpb) 1 gm in 100 mls @ 100 mls/hr IVPB DAILY [facility] PRN Reason: Protocol Last Admin: 10/29/17 09:16 Dose: 100 mls/hr Insulin Detemir (Levemir) 40 unit SC HS [facility] Last Admin: 10/28/17 21:46 Dose: 40 units Insulin Human Lispro (Humalog Low) 0 units SC ACHS [facility] PRN Reason: Protocol Last Admin: 10/29/17 12:10 Dose: Not Given Insulin Lispro Protam/Lispro Human (Humalog Mix 75/25) 20 units SC ACB [facility] Last Admin: 10/29/17 10:58 Dose: 20 units Insulin Lispro Protam/Lispro Human (Humalog Mix 75/25) 16 units SC ACD [facility] Last Admin: 10/28/17 16:05 Dose: 16 units Lidocaine (Lidoderm) 1 ea TD DAILY [facility] Last Admin: 10/29/17 09:16 Dose: Not Given Losartan Potassium (Cozaar) 12.5 mg PO DAILY [facility] Last Admin: 10/29/17 13:41 Dose: 12.5 mg Oxycodone/Acetaminophen (Percocet 5/325 Mg Tab) 1 tab PO Q6H PRN PRN Reason: Pain, moderate (4-7) Stop: 10/29/17 19:57 Last Admin: 10/28/17 12:13 Dose: 1 tab Pantoprazole Sodium (Protonix Ec Tab) 40 mg PO 0600 [facility] Last Admin: 10/29/17 05:26 Dose: 40 mg Vancomycin HCl (Vancocin 25 Mg/Ml (Oral Use)) 250 mg PO QID [facility] PRN Reason: Protocol Last Admin: 10/29/17 13:42 Dose: 250 mg - Labs Labs: 10/29/17 06:15 10/29/17 06:15 PT 12.7 SECONDS (9.4-12.5) H 10/28/17 05:00 INR 1.10 10/28/17 05:00 APTT 48.8 Seconds (25.1-36.5) H 10/29/17 06:15 - Constitutional Appears: Non-toxic, Chronically Ill - Head Exam Head Exam: ATRAUMATIC, NORMOCEPHALIC - Eye Exam Eye Exam: EOMI, PERRL Pupil Exam: NORMAL ACCOMODATION, PERRL - ENT Exam ENT Exam: Mucous Membranes Moist, Normal External Ear Exam, TM's Normal Bilaterally - Neck Exam Neck Exam: Full ROM, Normal Inspection - Respiratory Exam Respiratory Exam: Clear to Ausculation Bilateral, NORMAL BREATHING PATTERN. absent: Rales, Rhonchi, Wheezes - Cardiovascular Exam Cardiovascular Exam: REGULAR RHYTHM, RRR, +S1, +S2 - GI/Abdominal Exam GI & Abdominal Exam: Soft, Normal Bowel Sounds. absent: Distended, Tenderness - Extremities Exam Extremities Exam: Full ROM, Normal Inspection - Neurological Exam Neurological Exam: Alert, Awake, CN II-XII Intact, Oriented x3 - Psychiatric Exam Psychiatric exam: Normal Affect, Normal Mood - Skin Skin Exam: Intact, Normal Color Assessment and Plan - Assessment and Plan (Free Text) Assessment: 41 yo male with vague complaints of feeling unwell with significant leukocytosis of 29. Extensive PMHx of L ventricular thromboectomy (2003), R Femur fracture repair (2003), IVC filter placement, arthoscopic debridement, synovectomy for right septic knee joint, splenectomy 2003, tonsillectomy 2016, AICD placement, AICD removal and replacement (2/2 infected hardware). The patient with complaints of SOB and left sided chest pain. No specific findings of the Chest X-ray. Supportive care. Continued on Cefepime and IV Vancomycin at this time. Although not tachycardia today, the patient still has hypotensive episodes. Given a single dose of Gentamicin during this hospitalization. Leukocytosis of 15.6, which is a significant improvement. High of 56.8. Broad spectrum antibiotics for sepsis of unclear source. Cultures are showing gram positive diplococci. Possible Streptococci. On IV Vancomycin and Ceftriaxone. Still awaiting final cultures. Patient with back pain still but improving. Lund cultures. May need further imaging studies with CT scan. CT angio negative for PE. CT abdomen and pelvis was unremarkable. C. Diff testing was done showing positive antigen but negative toxin. Started on PO Vancomycin. 125mg PO q6hrs 10 day course. Thank you for allowing me to participate in the care of the patient, we will follow with you.
[2017-10-29] MEDS ORDERED: Insulin Lispro (humaLOG) MIX 75/25(10 ml) SC SCH ×2 (17:51)
--- NOTE | 2017-10-29 18:02 | PN ---
Copied To: Jodi Burrows MD Attending MD: Jodi Burrows MD DATE: 10/29/2017 ENDOCRINOLOGY FOLLOWUP NOTE This is a 41-year-old male with recent history of uncontrolled type 2 insulin-requiring diabetes, presenting here because of chest pain and is now being followed closely for metabolic management. He continues to have glycemic fluctuations and the overnight glucose levels have ranged from 353 to 324 and 395 mg/dL. His latest chemistry showed a BUN of 9. Sodium 137, potassium of 4.1, chloride 102, CO2 of 28. Glucose 316. Creatinine 0.5. At this time, we will modify once again his basal and premixed insulin regimen and increase the Levemir to 50 units subcu at the bedside daily as given. We will also increase the Humalog 75/25 units before breakfast and 20 units before dinner to start today. We will continue the low dose correction scale using Humalog insulin as given. We will titrate incrementally as indicated to optimize metabolic control. We will follow and advise accordingly. Jodi Burrows MD
--- NOTE | 2017-10-29 18:14 | PN ---
Copied To: Campbell Mackenzie MD Attending MD: Campbell Mackenzie MD DATE: 10/29/2017 SUBJECTIVE: The patient denies any chest pain. He is breathing comfortable at this time. PHYSICAL EXAMINATION: VITAL SIGNS: Blood pressure 134/92, heart rate 87, temperature 98.6, respirations 18. HEENT: Pale conjunctivae. CHEST: Bibasilar rhonchi. HEART: S1, S2 regular. EXTREMITIES: Trace edema. LABORATORY EXAM: Hemoglobin and hematocrit 10.5 and 31.4, white count 16.5, platelet count 225,000. SMA-7: Sodium 137, potassium 4.1, chloride 102, CO2 of 28, glucose 716, BUN 9, creatinine 0.5. DIAGNOSTIC DATA: Chest x-ray revealed cardiomegaly with [id number] CHF. Thoracic spine CT scan, no acute fracture or subluxation. Lumbar spine CT scan, no acute fracture or subluxation. IVC filter was noted. ASSESSMENT: 1. Dilated cardiomyopathy. 2. Coronary artery disease. 3. Streptococcal bacteremia. 4. Status post replacement of pulse generator for implantable defibrillator. 5. Uncontrolled hypertension. RECOMMENDATIONS: Continue aspirin 81 mg once a day, intravenous heparin infusion, Lipitor 20 mg once a day, vancomycin 250 mg p.o. four times a day, Rocephin 1 g intravenously daily repeating this one. Continue Dobutrex infusion. Start Cozaar at 12.5 mg twice a day. Campbell Mackenzie MD
[2017-10-29] MEDS ORDERED: Insulin Reg-MEDIUM-Coverage SC SCH (22:00)
[2017-10-29] MEDS ORDERED: Insulin Detemir 100 units/ml Vial (Levemir) SC SCH ×2 (22:00→22:15)
[2017-10-30] MEDS: Heparin25000 units/250ml 1/2NS 25,000 UNITS/250 ML BAG IV SCH ×2 (02:43→15:04)
[2017-10-30] MEDS: HYDROmorphone 1 mg/ml ISec IVP PRN (05:02)
[2017-10-30] MEDS: Pantoprazole 40 mg EC Tab PO SCH (05:02)
[2017-10-30 06:46] LABS: BASO # 0.07 K/mm3 (0.0-2.0); BASO % 0.4 % (0.0-3.0); EOS # 0.5 (0.0-0.7); EOS % 2.7 % (1.5-5.0); GRAN # 10.66 (1.4-6.5); GRAN % 56.2 % (50.0-68.0); HEMOGLOBIN 10.3 g/dL (14.0-18.0); LYMPH # 4.9 (1.2-3.4); LYMPH % 25.7 % (22.0-35.0); MEAN CORPUSCULAR HGB CONC 33.3 g/dl (31.0-37.0); MEAN PLATELET VOLUME 12.5 fl (7.0-11.0); MONO # 2.8 (0.1-0.6); RBC 3.68 10^6/uL (3.5-6.1); RED CELL DISTRIBUTION WIDTH 15.4 % (11.5-14.5)
[2017-10-30 07:43] LABS: ALB/GLOB RATIO 1.4 (1.1-1.8); ALBUMIN 2.9 g/dL (3.0-4.8); ALT/SGPT 52 U/L (7-56); AST/SGOT 37 U/L (17-59); BLOOD UREA NITROGEN 9 mg/dL (7-21); CALCIUM 8.4 mg/dL (8.4-10.5); GFR NON-AFRICAN AMERICAN > 60
[2017-10-30] MEDS: Insulin Lispro (humaLOG) LOW Coverage SC SCH ×4 (08:21→21:48)
[2017-10-30] MEDS: Insulin Lispro (humaLOG) MIX 75/25(10 ml) SC SCH (09:07)
[2017-10-30] MEDS: cefTRIAXone 1 gm 1 GM/100 ML BAG IVPB SCH (09:10)
[2017-10-30] MEDS: Lidocaine 5% Patch TD SCH (09:12)
[2017-10-30] MEDS ORDERED: Insulin Detemir 100 units/ml Vial (Levemir) SC SCH (09:28)
[2017-10-30] MEDS: Vancomycin 25 MG/ML PO SCH ×4 (09:29→22:42)
[2017-10-30] MEDS: HYDROmorphone 0.5 mg/0.5 ml ISec IVP PRN ×3 (11:26→21:37)
[2017-10-30] MEDS: DOBUTamine 500mg/250ml D5W 500 MG/250 ML BAG IV PRN (11:26)
--- NOTE | 2017-10-30 12:14 | PN ---
Copied To: oJdi Burrows MD Attending MD: Jodi Burrows MD DATE: 10/30/2017 ENDO FOLLOWUP NOTE LOCATION: In room 260. SUBJECTIVE: This is a 41-year-old male with recent uncontrolled type 2 insulin-requiring diabetes, presenting here with precordial chest pain and undergoing cardiac workup at this time and is actually scheduled for a ROBYN procedure and has been placed n.p.o. as noted. His glycemic levels are fluctuating, but much improved at this time and the latest glucose levels overnight have ranged from 195-263 mg/dL. His latest chemistry showed a BUN of 9, sodium 137, potassium 3.7, chloride 98, CO2 of 30, glucose 206 and creatinine 0.5. So at this time, we will continue the basal and premixed insulin regimen as modified overnight and with Humalog 75/25 given as 30 units before breakfast and 20 units before dinner as ordered. We will also continue the basal insulin given at a higher dose of Levemir at 50 units subcu at bedtime daily as ordered. The medical staffs have actually modify this insulin dosing because of the scheduled ROBYN procedure as noted. We will obtain serial chemistries and supplement accordingly as needed. We will follow. Jodi Burrows MD
--- NOTE | 2017-10-30 14:04 | CP.PCM.PN ---
<Flex Regan - Last Filed: 10/30/17 15:27> Subjective - Date & Time of Evaluation Date of Evaluation: 10/30/17 Time of Evaluation: 06:00 - Subjective Subjective: Pt seen and examined at bedside this morning. Pt reports some mild upper back pain. Pt denies fever, chills, or diaphoresis. No new complaints at this time. Objective - Vital Signs/Intake and Output Vital Signs (last 24 hours): Temp Pulse Resp BP Pulse Ox 99.1 F 85 18 123/73 97 10/30/17 12:16 10/30/17 12:16 10/30/17 12:16 10/30/17 12:16 10/30/17 09:00 Intake and Output: 10/30/17 10/30/17 06:59 18:59 Intake Total 1442 250 Balance 1442 250 - Medications Medications: Current Medications Acetaminophen (Tylenol 325mg Tab) 650 mg PO Q6H PRN PRN Reason: Temperature Last Admin: 10/25/17 18:18 Dose: 650 mg Albuterol Sulfate (Albuterol 0.083% Inhal Isha (2.5 Mg/3 Ml) Ud) 2.5 mg INH [id number] PRN PRN Reason: Shortness of Breath Aspirin (Aspirin Chewable) 81 mg PO DAILY [facility] Last Admin: 10/30/17 09:11 Dose: 81 mg Atorvastatin Calcium (Lipitor) 20 mg PO DIN [facility] Last Admin: 10/29/17 17:30 Dose: 20 mg Carvedilol (Coreg) 3.125 mg PO 0800,1800 [facility] Cyclobenzaprine HCl (Flexeril) 5 mg PO TID PRN PRN Reason: Pain, severe (8-10) Last Admin: 10/28/17 08:19 Dose: 5 mg Hydromorphone HCl (Dilaudid) 1 mg IVP Q4H PRN PRN Reason: Pain, severe (8-10) Last Admin: 10/30/17 11:26 Dose: 1 mg Heparin Sodium/Sodium Chloride (Heparin 86447 Units/250ml 1/2 Normal Saline) 25 ,000 units in 250 mls @ 14.288 mls/hr IV .[id number] [place]; 18 UNITS/KG/HR PRN Reason: Protocol Last Admin: 10/30/17 02:43 Dose: 27 units/kg/hr, 21.432 mls/hr Dobutamine HCl/Dextrose (Dobutamine/Dextrose 5% 500mg/250ml) 500 mg in 250 mls @ 4.714 mls/hr IV .Q24H PRN; Protocol; 2 MCG/KG/MIN PRN Reason: TITRATE PER PROTOCOL Last Admin: 10/30/17 11:26 Dose: 2 mcg/kg/min, 4.714 mls/hr Ceftriaxone Sodium (Rocephin 1 Gram Ivpb) 1 gm in 100 mls @ 100 mls/hr IVPB DAILY [facility] PRN Reason: Protocol Last Admin: 10/30/17 09:10 Dose: 100 mls/hr Insulin Detemir (Levemir) 25 unit SC HS [facility] Insulin Human Lispro (Humalog Low) 0 units SC ACHS [facility] PRN Reason: Protocol Last Admin: 10/30/17 11:20 Dose: Not Given Insulin Lispro Protam/Lispro Human (Humalog Mix 75/25) 30 units SC ACB [facility] Last Admin: 10/30/17 09:07 Dose: 30 units Insulin Lispro Protam/Lispro Human (Humalog Mix 75/25) 20 units SC ACD [facility] Lidocaine (Lidoderm) 1 ea TD DAILY [facility] Last Admin: 10/30/17 09:12 Dose: Not Given Losartan Potassium (Cozaar) 12.5 mg PO DAILY [facility] Last Admin: 10/30/17 09:11 Dose: 12.5 mg Pantoprazole Sodium (Protonix Ec Tab) 40 mg PO 0600 [facility] Last Admin: 10/30/17 05:02 Dose: 40 mg Vancomycin HCl (Vancocin 25 Mg/Ml (Oral Use)) 250 mg PO QID [facility] PRN Reason: Protocol Last Admin: 10/30/17 13:53 Dose: 250 mg - Labs Labs: 10/30/17 05:30 10/30/17 05:30 PT 12.7 SECONDS (9.4-12.5) H 10/28/17 05:00 INR 1.10 10/28/17 05:00 APTT 65.7 Seconds (25.1-36.5) H 10/30/17 08:02 - Constitutional Appears: No Acute Distress - Head Exam Head Exam: ATRAUMATIC, NORMAL INSPECTION, NORMOCEPHALIC - Eye Exam Eye Exam: EOMI - ENT Exam ENT Exam: Mucous Membranes Moist - Neck Exam Neck Exam: Full ROM, Normal Inspection - Respiratory Exam Respiratory Exam: Clear to Ausculation Bilateral, NORMAL BREATHING PATTERN. absent: Accessory Muscle Use, Rhonchi, Wheezes, Respiratory Distress, Stridor - Cardiovascular Exam Cardiovascular Exam: REGULAR RHYTHM, RRR, +S1, +S2. absent: JVD - GI/Abdominal Exam GI & Abdominal Exam: Soft, Normal Bowel Sounds. absent: Distended, Firm, Guarding, Rigid, Tenderness - Extremities Exam Extremities Exam: Full ROM. absent: Calf Tenderness - Back Exam Back Exam: Full ROM, NORMAL INSPECTION. absent: CVA tenderness (L), CVA tenderness (R) Additional comments: pt reports pain to palpation of the upper back - Neurological Exam Neurological Exam: Alert, Awake, Oriented x3 - Psychiatric Exam Psychiatric exam: Normal Affect, Normal Mood - Skin Skin Exam: Dry, Normal Color, Warm Assessment and Plan - Assessment and Plan (Free Text) Assessment: Pt is a 41 yo Male with PMH of Factor V Leiden, DVT, PE, HTN, DM, CHF, HLD, and splenectomy who presents with complaint of SOB and left-sided chest pain x3 days , who was treated for DKA. Pt is experiencing persistent bacteremia, possible AICD infection. Plan: Persistent Bacteremia - WBC 19, overall trending down - possible infected AICD - pt scheduled for ROBYN tomorrow with Dr Santoyo, Cardiology - continue rocephin - ID following - Heme/onc following C. Diff - continue oral vancomycin Back Pain - continue Dilaudid, Lidoderm, Flexeril DKA, DM - resolved, continue to monitor - continue current insulin regimen HTN - carvedilol being held for now HLD - continue lipitor CHF - continue current management Factor V Leiden - continue heparin Psoriatic Arthritis - continue current management Ppx - protonix - heparin Pt seen, examined, and assessment/plan discussed with Dr Bernie Regan PGY1 Internal Medicine Resident <Yury Gibbs - Last Filed: 10/31/17 14:43> Objective - Vital Signs/Intake and Output Vital Signs (last 24 hours): Temp Pulse Resp BP Pulse Ox 98.5 F 103 H 20 130/87 100 10/31/17 11:44 10/31/17 14:00 10/31/17 11:44 10/31/17 11:44 10/31/17 10:41 Intake and Output: 10/31/17 10/31/17 06:59 18:59 Intake Total 560 200 Balance 560 200 - Medications Medications: Current Medications Acetaminophen (Tylenol 325mg Tab) 650 mg PO Q6H PRN PRN Reason: Temperature Last Admin: 10/25/17 18:18 Dose: 650 mg Albuterol Sulfate (Albuterol 0.083% Inhal Isha (2.5 Mg/3 Ml) Ud) 2.5 mg INH [id number] PRN PRN Reason: Shortness of Breath Aspirin (Aspirin Chewable) 81 mg PO DAILY [facility] Last Admin: 10/31/17 10:56 Dose: 81 mg Atorvastatin Calcium (Lipitor) 20 mg PO DIN [facility] Last Admin: 10/30/17 17:26 Dose: 20 mg Carvedilol (Coreg) 3.125 mg PO 0800,1800 [facility] Cyclobenzaprine HCl (Flexeril) 5 mg PO TID PRN PRN Reason: Pain, severe (8-10) Last Admin: 10/28/17 08:19 Dose: 5 mg Hydromorphone HCl (Dilaudid) 1 mg IVP Q4H PRN PRN Reason: Pain, severe (8-10) Last Admin: 10/31/17 11:45 Dose: 1 mg Heparin Sodium/Sodium Chloride (Heparin 76011 Units/250ml 1/2 Normal Saline) 25 ,000 units in 250 mls @ 14.288 mls/hr IV .[id number] [place]; 18 UNITS/KG/HR PRN Reason: Protocol Last Titration: 10/31/17 08:25 Dose: 25 units/kg/hr, 19.845 mls/hr Dobutamine HCl/Dextrose (Dobutamine/Dextrose 5% 500mg/250ml) 500 mg in 250 mls @ 4.714 mls/hr IV .Q24H PRN; Protocol; 2 MCG/KG/MIN PRN Reason: TITRATE PER PROTOCOL Last Admin: 10/30/17 11:26 Dose: 2 mcg/kg/min, 4.714 mls/hr Ceftriaxone Sodium (Rocephin 1 Gram Ivpb) 1 gm in 100 mls @ 100 mls/hr IVPB DAILY [facility] PRN Reason: Protocol Last Admin: 10/31/17 10:56 Dose: 100 mls/hr Insulin Detemir (Levemir) 50 unit SC HS [facility] Insulin Human Lispro (Humalog Low) 0 units SC ACHS [facility] PRN Reason: Protocol Last Admin: 10/31/17 11:28 Dose: Not Given Insulin Lispro Protam/Lispro Human (Humalog Mix 75/25) 30 units SC ACB [facility] Last Admin: 10/30/17 09:07 Dose: 30 units Insulin Lispro Protam/Lispro Human (Humalog Mix 75/25) 20 units SC ACD [facility] Lidocaine (Lidoderm) 1 ea TD DAILY [facility] Last Admin: 10/30/17 09:12 Dose: Not Given Losartan Potassium (Cozaar) 12.5 mg PO DAILY [facility] Last Admin: 10/31/17 10:55 Dose: 12.5 mg Pantoprazole Sodium (Protonix Ec Tab) 40 mg PO 0600 [facility] Last Admin: 10/31/17 06:00 Dose: 40 mg Vancomycin HCl (Vancocin 25 Mg/Ml (Oral Use)) 250 mg PO QID [facility] PRN Reason: Protocol Last Admin: 10/31/17 13:30 Dose: 250 mg Warfarin Sodium (Coumadin) 5 mg PO DAILY [facility] PRN Reason: Protocol - Labs Labs: 10/31/17 07:00 10/31/17 07:00 PT 12.7 SECONDS (9.4-12.5) H 10/28/17 05:00 INR 1.10 10/28/17 05:00 APTT 85.6 Seconds (25.1-36.5) H 10/31/17 06:30 Attending/Attestation - Attestation I have personally seen and examined this patient.: Yes I have fully participated in the care of the patient.: Yes I have reviewed all pertinent clinical information, including history, physical exam and plan: Yes Notes (Text): 10/31/17 14:38 Medical record note made by the resident after discussion with my direction and input after the patient was personally seen and examined by me. I have reviewed the chart and agree that the record accurately reflects by personal performance of the history, physical exam, data review, and medical decision-making, in the course for the patient. I have also personally directed the plan of care. 41 yo male with PMH of L ventricular thromboectomy (2003), R Femur fracture repair (2003), IVC filter placement, arthoscopic debridement, synovectomy for right septic knee joint, splenectomy 2003, tonsillectomy 2016, AICD placement, AICD removal and replacement (2/2 infected hardware) was admitted with DKA, and sepsis due to streptocicus anginosus . DKA is resolved on levemir and novolog insulin.Patient is on IV Rocephin, repeat blood cultures are negative, scheduled for ROBYN on 10/31/17 to rule out endocarditis. C. Diff colitis on PO Vancomycin. 125mg PO q6hrs 10 day course, diarhhea is improving. Management plan was discussed in detail with patient. Education was provided.
--- NOTE | 2017-10-30 15:29 | CP.PCM.PN ---
Subjective - Date & Time of Evaluation Date of Evaluation: 10/30/17 Time of Evaluation: 14:00 - Subjective Subjective: Infectious Disease Follow Up: October 29, 2017 41 yo male with extensive PMHx that includes Factor V Leiden s/p DVTs/PEs/IVC filter/L ventricular thrombectomy (2004) on Coumadin, HTN, DM, CHF s/p AICD placement, AICD replacement 2/2 infected hardware (May 2017 at [facility] as per patient), psoriatic arthritis, HLD, and splenectomy (2003) who presents with complaint of shortness of breath and left-sided chest pain x3 days. As per patient, he started to feel unwell 3 weeks ago after receiving last Cosentyn injection. He apparently received Bentyl and Prednisone for 5 days with 10 days of Augmentin. No improvement. Had SOB at home and high glucose levels above 400. Claimed poor oral intake. Elevated trop in ER here at [facility]. Question of medication compliance as the patient's pharmacy has several medications listed there that have not been filled in the past year. Tachcardia under control today. Still with episodes of hypotension. Remains on Vancomycin and Rocephin for antibiotic coverage. Complains of less back pain today. Cultures showing streptococcus anginosus growth. C. Diff studies showing positive antigen but negative toxin. Noted oral Vancomycin started. Blood cultures showing Streptococci Anginosus. For ROBYN on Monday to rule out endocarditis. WBC increased slightly to 19.0 from 16.5 today. Objective - Vital Signs/Intake and Output Vital Signs (last 24 hours): Temp Pulse Resp BP Pulse Ox 99.1 F 85 18 123/73 97 10/30/17 12:16 10/30/17 14:00 10/30/17 12:16 10/30/17 12:16 10/30/17 09:00 Intake and Output: 10/30/17 10/30/17 06:59 18:59 Intake Total 1442 500 Balance 1442 500 - Medications Medications: Current Medications Acetaminophen (Tylenol 325mg Tab) 650 mg PO Q6H PRN PRN Reason: Temperature Last Admin: 10/25/17 18:18 Dose: 650 mg Albuterol Sulfate (Albuterol 0.083% Inhal Isha (2.5 Mg/3 Ml) Ud) 2.5 mg INH [id number] PRN PRN Reason: Shortness of Breath Aspirin (Aspirin Chewable) 81 mg PO DAILY [facility] Last Admin: 10/30/17 09:11 Dose: 81 mg Atorvastatin Calcium (Lipitor) 20 mg PO DIN [facility] Last Admin: 10/29/17 17:30 Dose: 20 mg Carvedilol (Coreg) 3.125 mg PO 0800,1800 [facility] Cyclobenzaprine HCl (Flexeril) 5 mg PO TID PRN PRN Reason: Pain, severe (8-10) Last Admin: 10/28/17 08:19 Dose: 5 mg Hydromorphone HCl (Dilaudid) 1 mg IVP Q4H PRN PRN Reason: Pain, severe (8-10) Last Admin: 10/30/17 11:26 Dose: 1 mg Heparin Sodium/Sodium Chloride (Heparin 24793 Units/250ml 1/2 Normal Saline) 25 ,000 units in 250 mls @ 14.288 mls/hr IV .[id number] LA; 18 UNITS/KG/HR PRN Reason: Protocol Last Admin: 10/30/17 15:04 Dose: 27 units/kg/hr, 21.432 mls/hr Dobutamine HCl/Dextrose (Dobutamine/Dextrose 5% 500mg/250ml) 500 mg in 250 mls @ 4.714 mls/hr IV .Q24H PRN; Protocol; 2 MCG/KG/MIN PRN Reason: TITRATE PER PROTOCOL Last Admin: 10/30/17 11:26 Dose: 2 mcg/kg/min, 4.714 mls/hr Ceftriaxone Sodium (Rocephin 1 Gram Ivpb) 1 gm in 100 mls @ 100 mls/hr IVPB DAILY LA PRN Reason: Protocol Last Admin: 10/30/17 09:10 Dose: 100 mls/hr Insulin Detemir (Levemir) 25 unit SC HS [facility] Insulin Human Lispro (Humalog Low) 0 units SC ACHS LA PRN Reason: Protocol Last Admin: 10/30/17 11:20 Dose: Not Given Insulin Lispro Protam/Lispro Human (Humalog Mix 75/25) 30 units SC ACB [facility] Last Admin: 10/30/17 09:07 Dose: 30 units Insulin Lispro Protam/Lispro Human (Humalog Mix 75/25) 20 units SC ACD [facility] Lidocaine (Lidoderm) 1 ea TD DAILY [facility] Last Admin: 10/30/17 09:12 Dose: Not Given Losartan Potassium (Cozaar) 12.5 mg PO DAILY [facility] Last Admin: 10/30/17 09:11 Dose: 12.5 mg Pantoprazole Sodium (Protonix Ec Tab) 40 mg PO 0600 [facility] Last Admin: 10/30/17 05:02 Dose: 40 mg Vancomycin HCl (Vancocin 25 Mg/Ml (Oral Use)) 250 mg PO QID [facility] PRN Reason: Protocol Last Admin: 10/30/17 13:53 Dose: 250 mg - Labs Labs: 10/30/17 05:30 10/30/17 05:30 PT 12.7 SECONDS (9.4-12.5) H 10/28/17 05:00 INR 1.10 10/28/17 05:00 APTT 65.7 Seconds (25.1-36.5) H 10/30/17 08:02 - Constitutional Appears: Non-toxic, Chronically Ill - Head Exam Head Exam: ATRAUMATIC, NORMOCEPHALIC - Eye Exam Eye Exam: EOMI, PERRL Pupil Exam: NORMAL ACCOMODATION, PERRL - ENT Exam ENT Exam: Mucous Membranes Moist, Normal External Ear Exam, TM's Normal Bilaterally - Neck Exam Neck Exam: Full ROM, Normal Inspection - Respiratory Exam Respiratory Exam: Clear to Ausculation Bilateral, NORMAL BREATHING PATTERN. absent: Rales, Rhonchi, Wheezes - Cardiovascular Exam Cardiovascular Exam: REGULAR RHYTHM, RRR, +S1, +S2 - GI/Abdominal Exam GI & Abdominal Exam: Soft, Normal Bowel Sounds. absent: Distended, Tenderness - Extremities Exam Extremities Exam: Full ROM, Normal Inspection - Neurological Exam Neurological Exam: Alert, Awake, CN II-XII Intact, Oriented x3 - Psychiatric Exam Psychiatric exam: Normal Affect, Normal Mood - Skin Skin Exam: Intact, Normal Color Assessment and Plan - Assessment and Plan (Free Text) Assessment: 41 yo male with vague complaints of feeling unwell with significant leukocytosis of 29. Extensive PMHx of L ventricular thromboectomy (2003), R Femur fracture repair (2003), IVC filter placement, arthoscopic debridement, synovectomy for right septic knee joint, splenectomy 2003, tonsillectomy 2016, AICD placement, AICD removal and replacement (2/2 infected hardware). The patient with complaints of SOB and left sided chest pain. No specific findings of the Chest X-ray. Supportive care. Continued on Cefepime and IV Vancomycin at this time. Although not tachycardia today, the patient still has hypotensive episodes. Given a single dose of Gentamicin during this hospitalization. Leukocytosis 19.0 today. High of 56.8. Broad spectrum antibiotics for sepsis of unclear source. Cultures are showing gram positive diplococci. Possible Streptococci. On IV Vancomycin and Ceftriaxone. Still awaiting final cultures. Patient with back pain still but improving. Lund cultures. May need further imaging studies with CT scan. CT angio negative for PE. CT abdomen and pelvis was unremarkable. C. Diff testing was done showing positive antigen but negative toxin. Started on PO Vancomycin. 125mg PO q6hrs 10 day course. On the whole the patient is having less back pain. Thank you for allowing me to participate in the care of the patient, we will follow with you.
--- NOTE | 2017-10-30 16:16 | PN ---
Copied To: Campbell Mackenzie MD Attending MD: Campbell Mackenzie MD DATE: 10/30/2017 SUBJECTIVE: The patient complains of sharp left inframammary chest pain. He denies any orthopnea. No fever or chills. PHYSICAL EXAMINATION: VITAL SIGNS: Blood pressure 142/95, heart rate 89, temperature 97.4, respiration 16. HEENT: Normocephalic. CHEST: Clear. HEART: Sounds regular. EXTREMITIES: No edema. LABORATORY DATA: Hemoglobin and hematocrit 10.3 and 30.9, white count 19,000, platelet count 259,000. Recent SMA-7 is within normal limit except for glucose of 106 and creatinine 0.5. ASSESSMENT: 1. Dilated cardiomyopathy. 2. Coronary artery disease. 3. Streptococcus bacteremia. 4. Status post recent replacement of an implantable cardioverter-defibrillator pulse generator. 5. Hypertension. RECOMMENDATIONS: Continue aspirin 81 mg once a day, Coreg 3.125 mg twice a day, Cozaar 12.5 mg once a day, Dobutrex infusion and intravenous heparin in therapeutic regimen, Lipitor 20 mg once a day, Rocephin 1 g intravenously daily, vancomycin 250 mg p.o. q.i.d. The plan is for the patient to have transesophageal echocardiography study tomorrow. Campbell Mackenzie MD
[2017-10-30] MEDS ORDERED: Insulin Lispro (humaLOG) MIX 75/25(10 ml) SC SCH (16:30)
[2017-10-31] MEDS: HYDROmorphone 0.5 mg/0.5 ml ISec IVP PRN ×5 (02:27→21:16)
[2017-10-31] MEDS: Pantoprazole 40 mg EC Tab PO SCH (06:00)
--- NOTE | 2017-10-31 07:12 | CP.PCM.PN ---
<Flex Regan - Last Filed: 10/31/17 21:30> Subjective - Date & Time of Evaluation Date of Evaluation: 10/31/17 Time of Evaluation: 07:00 - Subjective Subjective: Pt seen and examined this morning at bedside. Pt reports mild back pain which is worse with breathing. Pt denies chest pain, SOB, nausea or vomiting. Objective - Vital Signs/Intake and Output Vital Signs (last 24 hours): Temp Pulse Resp BP Pulse Ox 98.5 F 86 20 126/82 95 10/31/17 05:49 10/31/17 05:49 10/31/17 05:49 10/31/17 05:49 10/31/17 05:49 Intake and Output: 10/31/17 10/31/17 06:59 18:59 Intake Total 560 Balance 560 - Medications Medications: Current Medications Acetaminophen (Tylenol 325mg Tab) 650 mg PO Q6H PRN PRN Reason: Temperature Last Admin: 10/25/17 18:18 Dose: 650 mg Albuterol Sulfate (Albuterol 0.083% Inhal Isha (2.5 Mg/3 Ml) Ud) 2.5 mg INH [id number] PRN PRN Reason: Shortness of Breath Aspirin (Aspirin Chewable) 81 mg PO DAILY [facility] Last Admin: 10/30/17 09:11 Dose: 81 mg Atorvastatin Calcium (Lipitor) 20 mg PO DIN LA Last Admin: 10/30/17 17:26 Dose: 20 mg Carvedilol (Coreg) 3.125 mg PO 0800,1800 [place] Cyclobenzaprine HCl (Flexeril) 5 mg PO TID PRN PRN Reason: Pain, severe (8-10) Last Admin: 10/28/17 08:19 Dose: 5 mg Hydromorphone HCl (Dilaudid) 1 mg IVP Q4H PRN PRN Reason: Pain, severe (8-10) Last Admin: 10/31/17 02:27 Dose: 1 mg Heparin Sodium/Sodium Chloride (Heparin 57934 Units/250ml 1/2 Normal Saline) 25 ,000 units in 250 mls @ 14.288 mls/hr IV .[id number] LA; 18 UNITS/KG/HR PRN Reason: Protocol Last Titration: 10/31/17 02:43 Dose: 27 units/kg/hr, 21.432 mls/hr Dobutamine HCl/Dextrose (Dobutamine/Dextrose 5% 500mg/250ml) 500 mg in 250 mls @ 4.714 mls/hr IV .Q24H PRN; Protocol; 2 MCG/KG/MIN PRN Reason: TITRATE PER PROTOCOL Last Admin: 10/30/17 11:26 Dose: 2 mcg/kg/min, 4.714 mls/hr Ceftriaxone Sodium (Rocephin 1 Gram Ivpb) 1 gm in 100 mls @ 100 mls/hr IVPB DAILY LA PRN Reason: Protocol Last Admin: 10/30/17 09:10 Dose: 100 mls/hr Insulin Detemir (Levemir) 25 unit SC HS [facility] Last Admin: 10/30/17 21:47 Dose: 25 units Insulin Human Lispro (Humalog Low) 0 units SC ACHS [facility] PRN Reason: Protocol Last Admin: 10/30/17 21:48 Dose: 2 units Insulin Lispro Protam/Lispro Human (Humalog Mix 75/25) 30 units SC ACB [facility] Last Admin: 10/30/17 09:07 Dose: 30 units Insulin Lispro Protam/Lispro Human (Humalog Mix 75/25) 20 units SC ACD [facility] Lidocaine (Lidoderm) 1 ea TD DAILY [facility] Last Admin: 10/30/17 09:12 Dose: Not Given Losartan Potassium (Cozaar) 12.5 mg PO DAILY [facility] Last Admin: 10/30/17 09:11 Dose: 12.5 mg Pantoprazole Sodium (Protonix Ec Tab) 40 mg PO 0600 [facility] Last Admin: 10/31/17 06:00 Dose: 40 mg Vancomycin HCl (Vancocin 25 Mg/Ml (Oral Use)) 250 mg PO QID [facility] PRN Reason: Protocol Last Admin: 10/30/17 22:42 Dose: 250 mg - Labs Labs: 10/30/17 05:30 10/30/17 05:30 PT 12.7 SECONDS (9.4-12.5) H 10/28/17 05:00 INR 1.10 10/28/17 05:00 APTT 85.6 Seconds (25.1-36.5) H 10/31/17 06:30 - Constitutional Appears: No Acute Distress - Head Exam Head Exam: ATRAUMATIC, NORMAL INSPECTION, NORMOCEPHALIC - Eye Exam Eye Exam: EOMI - ENT Exam ENT Exam: Mucous Membranes Moist - Neck Exam Neck Exam: Full ROM - Respiratory Exam Respiratory Exam: Clear to Ausculation Bilateral, NORMAL BREATHING PATTERN. absent: Accessory Muscle Use, Rales, Rhonchi, Wheezes, Stridor - Cardiovascular Exam Cardiovascular Exam: REGULAR RHYTHM, RRR, +S1, +S2. absent: Diastolic murmur, JVD - GI/Abdominal Exam GI & Abdominal Exam: Soft, Normal Bowel Sounds. absent: Distended, Firm, Guarding, Rigid, Tenderness, Rebound - Extremities Exam Extremities Exam: Full ROM. absent: Calf Tenderness - Back Exam Back Exam: Full ROM, NORMAL INSPECTION. absent: CVA tenderness (L), CVA tenderness (R) - Neurological Exam Neurological Exam: Alert, Awake, Oriented x3 - Psychiatric Exam Psychiatric exam: Normal Affect, Normal Mood - Skin Skin Exam: Dry, Normal Color, Warm Assessment and Plan - Assessment and Plan (Free Text) Assessment: Pt is a 41 yo Male with PMH of Factor V Leiden, DVT, PE, HTN, DM, CHF, HLD, and splenectomy who presents with SOB and left-sided chest pain x3 days, treated for DKA. Pt is experiencing persistent leukocytosis. Plan: Persistent Leukocytosis - WBC 19 - ROBYN showed no vegetations, AICD in place and not infected - Start PICC line, for out pt IV antibiotics Factor V Leiden - restart Warfarin C diff - continue PO Vanc - symptoms has resolved Back Pain - continue flexeril, diladid, lidoderm HTN - continue losartan HLD - continue lipitor DM - DKA resolved - continue current insulin regiment CHF - continue current management Ppx - SCD - pantoprazole Pt seen, examined, and assessment/ plan discussed with Dr Bernie Regan PGY1 Internal Medicine Resident <Yury Gibbs - Last Filed: 11/01/17 08:48> Objective - Vital Signs/Intake and Output Vital Signs (last 24 hours): Temp Pulse Resp BP Pulse Ox 98.6 F 92 H 12 118/76 96 11/01/17 05:29 11/01/17 05:30 11/01/17 05:29 11/01/17 05:29 11/01/17 05:29 Intake and Output: 11/01/17 11/01/17 06:59 18:59 Intake Total 1151 Balance 1151 - Medications Medications: Current Medications Acetaminophen (Tylenol 325mg Tab) 650 mg PO Q6H PRN PRN Reason: Temperature Last Admin: 10/25/17 18:18 Dose: 650 mg Albuterol Sulfate (Albuterol 0.083% Inhal Isha (2.5 Mg/3 Ml) Ud) 2.5 mg INH [id number] PRN PRN Reason: Shortness of Breath Aspirin (Aspirin Chewable) 81 mg PO DAILY [facility] Last Admin: 10/31/17 10:56 Dose: 81 mg Atorvastatin Calcium (Lipitor) 20 mg PO DIN [facility] Last Admin: 10/31/17 16:48 Dose: 20 mg Carvedilol (Coreg) 3.125 mg PO 0800,1800 [place] Cyclobenzaprine HCl (Flexeril) 5 mg PO TID PRN PRN Reason: Pain, severe (8-10) Last Admin: 10/28/17 08:19 Dose: 5 mg Hydromorphone HCl (Dilaudid) 1 mg IVP Q4H PRN PRN Reason: Pain, severe (8-10) Last Admin: 11/01/17 05:49 Dose: 1 mg Heparin Sodium/Sodium Chloride (Heparin 01415 Units/250ml 1/2 Normal Saline) 25 ,000 units in 250 mls @ 14.288 mls/hr IV .[id number] [facility]; 18 UNITS/KG/HR PRN Reason: Protocol Last Titration: 11/01/17 05:52 Dose: 25 units/kg/hr, 19.845 mls/hr Dobutamine HCl/Dextrose (Dobutamine/Dextrose 5% 500mg/250ml) 500 mg in 250 mls @ 4.714 mls/hr IV .Q24H PRN; Protocol; 2 MCG/KG/MIN PRN Reason: TITRATE PER PROTOCOL Last Admin: 10/30/17 11:26 Dose: 2 mcg/kg/min, 4.714 mls/hr Ceftriaxone Sodium (Rocephin 1 Gram Ivpb) 1 gm in 100 mls @ 100 mls/hr IVPB DAILY [facility] PRN Reason: Protocol Insulin Detemir (Levemir) 50 unit SC HS [facility] Last Admin: 10/31/17 22:34 Dose: 50 units Insulin Human Lispro (Humalog Low) 0 units SC ACHS [facility] PRN Reason: Protocol Last Admin: 11/01/17 06:41 Dose: 3 units Insulin Lispro Protam/Lispro Human (Humalog Mix 75/25) 30 units SC ACB [facility] Last Admin: 11/01/17 07:50 Dose: 30 units Insulin Lispro Protam/Lispro Human (Humalog Mix 75/25) 20 units SC ACD [facility] Lidocaine (Lidoderm) 1 ea TD DAILY [facility] Last Admin: 10/31/17 11:45 Dose: Not Given Losartan Potassium (Cozaar) 12.5 mg PO DAILY [facility] Last Admin: 10/31/17 10:55 Dose: 12.5 mg Pantoprazole Sodium (Protonix Ec Tab) 40 mg PO 0600 [facility] Last Admin: 11/01/17 05:17 Dose: 40 mg Vancomycin HCl (Vancocin 25 Mg/Ml (Oral Use)) 250 mg PO QID [facility] PRN Reason: Protocol Last Admin: 10/31/17 21:17 Dose: 250 mg Warfarin Sodium (Coumadin) 5 mg PO DAILY [facility] PRN Reason: Protocol Last Admin: 10/31/17 16:47 Dose: 5 mg - Labs Labs: 10/31/17 07:00 10/31/17 07:00 PT 13.6 SECONDS (9.4-12.5) H 11/01/17 05:15 INR 1.18 11/01/17 05:15 APTT 83.7 Seconds (25.1-36.5) H 11/01/17 05:15 Attending/Attestation - Attestation I have personally seen and examined this patient.: Yes I have fully participated in the care of the patient.: Yes I have reviewed all pertinent clinical information, including history, physical exam and plan: Yes Notes (Text): 11/01/17 08:47 Medical record note made by the resident after discussion with my direction and input after the patient was personally seen and examined by me. I have reviewed the chart and agree that the record accurately reflects by personal performance of the history, physical exam, data review, and medical decision-making, in the course for the patient. I have also personally directed the plan of care. 41 yo male with PMH of L ventricular thromboectomy (2003), R Femur fracture repair (2003), IVC filter placement, arthoscopic debridement, synovectomy for right septic knee joint, splenectomy 2003, tonsillectomy 2017, AICD placement, AICD removal and replacement (2/2 infected hardware) was admitted with DKA, and sepsis due to streptocicus anginosus . DKA is resolved on levemir and novolog insulin.Patient is on IV Rocephin, repeat blood cultures are negative, ROBYN on 10/31/17 is negative for endocarditis.We will get PICC line.Case was discussed with ID, will need 2 weeks of IV Rocephin since negative blood cultures. C. Diff colitis on PO Vancomycin. 125mg PO q6hrs 10 day course, diarrhea is improving. Management plan was discussed in detail with patient. Education was provided.
[2017-10-31] MEDS: Insulin Lispro (humaLOG) LOW Coverage SC SCH ×4 (08:08→22:31)
[2017-10-31 08:31] LABS: BASO # 0.16 K/mm3 (0.0-2.0); BASO % 0.8 % (0.0-3.0); EOS # 0.6 (0.0-0.7); EOS % 3.3 % (1.5-5.0); GRAN # 10.08 (1.4-6.5); HEMOGLOBIN 10.8 g/dL (14.0-18.0); LYMPH # 5.4 (1.2-3.4); LYMPH % 28.2 % (22.0-35.0); MEAN CELL VOLUME 84.2 fl (80.0-105.0); MEAN CORPUSCULAR HGB CONC 33.2 g/dl (31.0-37.0); MEAN PLATELET VOLUME 12.8 fl (7.0-11.0); MONO # 2.8 (0.1-0.6); MONO % 14.7 % (1.0-6.0); RBC 3.86 10^6/uL (3.5-6.1); RED CELL DISTRIBUTION WIDTH 15.5 % (11.5-14.5)
[2017-10-31 08:57] LABS: ALB/GLOB RATIO 1.6 (1.1-1.8); ALBUMIN 2.9 g/dL (3.0-4.8); ALT/SGPT 51 U/L (7-56); AST/SGOT 20 U/L (17-59); BLOOD UREA NITROGEN 7 mg/dL (7-21); CALCIUM 8.7 mg/dL (8.4-10.5); GFR NON-AFRICAN AMERICAN > 60
[2017-10-31] MEDS ORDERED: Midazolam 2 MG/2 ML VIAL ONE (09:24)
[2017-10-31] MEDS ORDERED: Naloxone 0.4 mg/ml Inj (Adult) ONE (09:24)
[2017-10-31] MEDS ORDERED: Flumazenil 0.1 mg/ml Inj (5ml) IVP ONE (09:24)
[2017-10-31] MEDS ORDERED: Midazolam 2 MG/2 ML VIAL IV ONE ×5 (09:28→09:40)
[2017-10-31] MEDS: Vancomycin 25 MG/ML PO SCH ×4 (10:55→21:17)
[2017-10-31] MEDS: cefTRIAXone 1 gm 1 GM/100 ML BAG IVPB SCH (10:56)
--- NOTE | 2017-10-31 11:19 | CARD ---
APPROVED REPORT Date of service: 10/31/2017 EXAM: Transesophageal echocardiogram with color flow Doppler. INDICATION Infection : Rule out subacute bacterial endocarditis Reason For Test : Rule out endocarditis. PROCEDURE After obtaining informed consent, patient underwent transesophageal echo in the Echo Lab. Type of Sedation : Conscious Sedation Sedation was administered by Dr. Bolton. Sedation was achieved with Versed and , Fentanyl 4 mg and 100mcg intravenously. Transesophageal probe was inserted and advanced into esophagus without difficulty. Echo enhancement indication: R/O Septal defect. Echo enhancement agent administered: Agitated Saline The ROBYN was performed without complications. Throughout the procedure, the blood pressure, pulse oximetry, cardiac rhythm, and rate were monitored. The patient tolerated the procedure without adverse effects. Recovery from conscious sedation was uneventful and vital signs were stable. LEFT VENTRICLE The left ventricle is normal size. There is borderline concentric left ventricular hypertrophy. Left ventricle systolic function is severely impaired.EF-15-20% There is severe diffuse hypokinesis The left ventricular diastolic function is normal. No left ventricle thrombus noted on this study. There is no ventricular septal defect visualized. There is no left ventricular aneurysm. There is no mass noted in the left ventricle. RIGHT VENTRICLE The right ventricle is mildly dilated. There is normal right ventricular wall thickness. Systolic function is moderately reduced. There is a pacemaker lead in the right ventricle. ATRIA The left atrium is mildly dilated. The right atrium is moderately dilated. There is a catheter/pacemaker lead seen in the right atrium. The interatrial septum is intact with no evidence for an atrial septal defect. AORTIC VALVE The aortic valve is normal in structure. There is trace to mild aortic regurgitation. There is no aortic valvular stenosis. There is no aortic valvular vegetation. MITRAL VALVE The mitral valve leaflets are thickened. There is no evidence of mitral valve prolapse. There is no mitral valve stenosis. Mitral regurgitation is moderate. TRICUSPID VALVE The tricuspid valve is normal in structure. There is moderate tricuspid regurgitation.RVSP-51 mmof hg. There is no tricuspid valve prolapse or vegetation. There is no tricuspid valve stenosis. PULMONIC VALVE The pulmonary valve is normal in structure. There is mild pulmonic valvular regurgitation. There is no pulmonic valvular stenosis. GREAT VESSELS The aortic root is normal in size. The ascending aorta is normal in size. The pulmonary artery is normal. The IVC is normal in size and collapses >50% with inspiration. PERICARDIAL EFFUSION There is no pericardial effusion. There is no pleural effusion. <Conclusion> Four chamber Dilatation C/w CMP ,EF-15-20% There is trace to mild aortic regurgitation. There is no evidence of mitral valve prolapse. There is moderate tricuspid regurgitation.RVSP-51 mmof hg. There is mild pulmonic valvular regurgitation. PPM/AICD lead noted in RA/RV No Vegetation noted.
[2017-10-31] MEDS: Lidocaine 5% Patch TD SCH (11:45)
--- NOTE | 2017-10-31 14:05 | PN ---
Copied To: Jodi Burrows MD Attending MD: Jodi Burrows MD DATE: 10/31/2017 ENDOCRINOLOGY FOLLOWUP NOTE LOCATION: In room 260. SUBJECTIVE: This is a 41-year-old male with a recent uncontrolled type 2 insulin-requiring diabetes, currently undergoing a transesophageal echo or ROBYN today as noted. His insulin regimen has been held by the medical staff at this time with expected hyperglycemic accelerations thereof. His glucose values have ranged from 284 to 369 mg/dL. His latest chemistry showed a BUN of 7. Sodium 134, potassium 4.8, chloride 96, CO2 of 29. Glucose 273. Creatinine 0.5. So at this time, since the procedure for the ROBYN has been completed and his diet has been resumed, then we will also resume the same basal and premixed insulin regimen as given. He was previously on Humalog 75/25 given as 30 units before breakfast and 20 units before dinner as ordered. We will also continue Levemir given as 50 units subcu at bedtime daily to start tonight. We will continue the low-dose correction scale using Humalog insulin as ordered. We will obtain serial chemistries and supplement accordingly as needed. We will follow. Jodi Burrows MD
[2017-10-31] MEDS ORDERED: Insulin Detemir 100 units/ml Vial (Levemir) SC SCH (14:36)
--- NOTE | 2017-10-31 15:55 | PN ---
Copied To: Jasbir Santoyo MD Attending MD: Jasbir Santoyo MD DATE: 10/31/2017 CARDIOLOGY FOLLOWUP SUBJECTIVE: The patient tolerated ROBYN. There are no evidence for vegetations. PHYSICAL EXAMINATION GENERAL: The patient is comfortable in bed. VITAL SIGNS: Blood pressure is 130/87, the heart rate is in the 80s. NECK: Negative JVD. LUNGS: Without rales. HEART: Reveals S1 and S2. EXTREMITIES: Without edema. LABORATORY DATA: Hemoglobin is 10.8, white count is down to 19,000. Chemistries: BUN and creatinine are unremarkable. Glucose is 273. IMPRESSION: 1. Septicemia. 2. No evidence for endocarditis on transesophageal echocardiogram. 3. Severe dilated cardiomyopathy. 4. Diabetes mellitus. 5. Coronary artery disease. 6. History of implantable cardioverter defibrillator placement. PLAN: Given these findings, there is no evidence for vegetations. We will continue IV antibiotics. Once the infection is better, we will consider enrolling the patient in a heart transplant program. Jasbir Santoyo MD
[2017-10-31] MEDS: Heparin25000 units/250ml 1/2NS 25,000 UNITS/250 ML BAG IV SCH (17:28)
[2017-10-31] MEDS ORDERED: Insulin Lispro 1 UNITS/0.01 ML SC STA (17:53)
--- NOTE | 2017-10-31 18:03 | CP.PCM.PN ---
Subjective - Date & Time of Evaluation Date of Evaluation: 10/31/17 Time of Evaluation: 16:30 - Subjective Subjective: Infectious Disease Follow Up: October 31, 2017 41 yo male with extensive PMHx that includes Factor V Leiden s/p DVTs/PEs/IVC filter/L ventricular thrombectomy (2004) on Coumadin, HTN, DM, CHF s/p AICD placement, AICD replacement 2/2 infected hardware (May 2017 at [facility] [place]), psoriatic arthritis, HLD, and splenectomy (2003) who presents with complaint of shortness of breath and left-sided chest pain x3 days. As per patient, he started to feel unwell 3 weeks ago after receiving last Cosentyn injection. He apparently received Bentyl and Prednisone for 5 days with 10 days of Augmentin. No improvement. Had SOB at home and high glucose levels above 400. Claimed poor oral intake. Elevated trop in ER here at [facility] [place]. Question of medication compliance as the patient's pharmacy has several medications listed there that have not been filled in the past year. Tachcardia under control today. Still with episodes of hypotension. Remains on Vancomycin and Rocephin for antibiotic coverage. Complains of less back pain today. Cultures showing streptococcus anginosus growth. C. Diff studies showing positive antigen but negative toxin. Noted oral Vancomycin started. Blood cultures showing Streptococci Anginosus. For ROBYN on Monday to rule out endocarditis. WBC increased slightly to 19.0 from 16.5 today. ROBYN did not show any vegetations. Objective - Vital Signs/Intake and Output Vital Signs (last 24 hours): Temp Pulse Resp BP Pulse Ox 98.5 F 103 H 20 130/87 100 10/31/17 11:44 10/31/17 14:00 10/31/17 11:44 10/31/17 11:44 10/31/17 10:41 Intake and Output: 10/31/17 10/31/17 06:59 18:59 Intake Total 560 1475 Balance 560 1475 - Medications Medications: Current Medications Acetaminophen (Tylenol 325mg Tab) 650 mg PO Q6H PRN PRN Reason: Temperature Last Admin: 10/25/17 18:18 Dose: 650 mg Albuterol Sulfate (Albuterol 0.083% Inhal Isha (2.5 Mg/3 Ml) Ud) 2.5 mg INH [id number] PRN PRN Reason: Shortness of Breath Aspirin (Aspirin Chewable) 81 mg PO DAILY [facility] [place] Last Admin: 10/31/17 10:56 Dose: 81 mg Atorvastatin Calcium (Lipitor) 20 mg PO DIN [facility] [place] Last Admin: 10/31/17 16:48 Dose: 20 mg Carvedilol (Coreg) 3.125 mg PO 0800,1800 [facility] [place] Cyclobenzaprine HCl (Flexeril) 5 mg PO TID PRN PRN Reason: Pain, severe (8-10) Last Admin: 10/28/17 08:19 Dose: 5 mg Hydromorphone HCl (Dilaudid) 1 mg IVP Q4H PRN PRN Reason: Pain, severe (8-10) Last Admin: 10/31/17 16:47 Dose: 1 mg Heparin Sodium/Sodium Chloride (Heparin 67882 Units/250ml 1/2 Normal Saline) 25 ,000 units in 250 mls @ 14.288 mls/hr IV .[id number] LA; 18 UNITS/KG/HR PRN Reason: Protocol Last Admin: 10/31/17 17:28 Dose: 25 units/kg/hr, 19.845 mls/hr Dobutamine HCl/Dextrose (Dobutamine/Dextrose 5% 500mg/250ml) 500 mg in 250 mls @ 4.714 mls/hr IV .Q24H PRN; Protocol; 2 MCG/KG/MIN PRN Reason: TITRATE PER PROTOCOL Last Admin: 10/30/17 11:26 Dose: 2 mcg/kg/min, 4.714 mls/hr Insulin Detemir (Levemir) 50 unit SC HS [facility] [place] Insulin Human Lispro (Humalog Low) 0 units SC ACHS [facility] [place] PRN Reason: Protocol Last Admin: 10/31/17 17:26 Dose: 5 units Insulin Lispro Protam/Lispro Human (Humalog Mix 75/25) 30 units SC ACB [facility] [place] Last Admin: 10/30/17 09:07 Dose: 30 units Insulin Lispro Protam/Lispro Human (Humalog Mix 75/25) 20 units SC ACD [facility] [place] Lidocaine (Lidoderm) 1 ea TD DAILY [facility] [place] Last Admin: 10/31/17 11:45 Dose: Not Given Losartan Potassium (Cozaar) 12.5 mg PO DAILY [facility] [place] Last Admin: 10/31/17 10:55 Dose: 12.5 mg Pantoprazole Sodium (Protonix Ec Tab) 40 mg PO 0600 [facility] [place] Last Admin: 10/31/17 06:00 Dose: 40 mg Vancomycin HCl (Vancocin 25 Mg/Ml (Oral Use)) 250 mg PO QID [facility] [place] PRN Reason: Protocol Last Admin: 10/31/17 17:27 Dose: 250 mg Warfarin Sodium (Coumadin) 5 mg PO DAILY [facility] [place] PRN Reason: Protocol Last Admin: 10/31/17 16:47 Dose: 5 mg - Labs Labs: 10/31/17 07:00 10/31/17 07:00 PT 12.7 SECONDS (9.4-12.5) H 10/28/17 05:00 INR 1.10 10/28/17 05:00 APTT 85.6 Seconds (25.1-36.5) H 10/31/17 06:30 - Constitutional Appears: Non-toxic, Chronically Ill - Head Exam Head Exam: ATRAUMATIC, NORMOCEPHALIC - Eye Exam Eye Exam: EOMI, PERRL Pupil Exam: NORMAL ACCOMODATION, PERRL - ENT Exam ENT Exam: Mucous Membranes Moist, Normal External Ear Exam, TM's Normal Bilaterally - Neck Exam Neck Exam: Full ROM, Normal Inspection - Respiratory Exam Respiratory Exam: Clear to Ausculation Bilateral, NORMAL BREATHING PATTERN. absent: Rales, Rhonchi, Wheezes - Cardiovascular Exam Cardiovascular Exam: REGULAR RHYTHM, RRR, +S1, +S2 - GI/Abdominal Exam GI & Abdominal Exam: Soft, Normal Bowel Sounds. absent: Distended, Tenderness - Extremities Exam Extremities Exam: Full ROM, Normal Inspection - Neurological Exam Neurological Exam: Alert, Awake, CN II-XII Intact, Oriented x3 - Psychiatric Exam Psychiatric exam: Normal Affect, Normal Mood - Skin Skin Exam: Intact, Normal Color Assessment and Plan - Assessment and Plan (Free Text) Assessment: 41 yo male with vague complaints of feeling unwell with significant leukocytosis of 29. Extensive PMHx of L ventricular thromboectomy (2003), R Femur fracture repair (2003), IVC filter placement, arthoscopic debridement, synovectomy for right septic knee joint, splenectomy 2003, tonsillectomy 2016, AICD placement, AICD removal and replacement (2/2 infected hardware). The patient with complaints of SOB and left sided chest pain. No specific findings of the Chest X-ray. Supportive care. Continued on Cefepime and IV Vancomycin at this time. Although not tachycardia today, the patient still has hypotensive episodes. Given a single dose of Gentamicin during this hospitalization. Leukocytosis 19.0 today. High of 56.8. Broad spectrum antibiotics for sepsis of unclear source. Cultures are showing gram positive diplococci. Possible Streptococci. On IV Vancomycin and Ceftriaxone. Still awaiting final cultures. Patient with back pain still but improving. Lund cultures. May need further imaging studies with CT scan. CT angio negative for PE. CT abdomen and pelvis was unremarkable. C. Diff testing was done showing positive antigen but negative toxin. Started on PO Vancomycin. 125mg PO q6hrs 10 day course. On the whole the patient is having less back pain compared to admission. The patient with ROBYN negative for vegetations. Thank you for allowing me to participate in the care of the patient, we will follow with you.
[2017-10-31] MEDS ORDERED: Insulin Regular 1 UNITS/0.01 ML ML SC STA (20:09)
[2017-11-01] MEDS: HYDROmorphone 0.5 mg/0.5 ml ISec IVP PRN ×4 (01:42→13:35)
[2017-11-01] MEDS: Heparin25000 units/250ml 1/2NS 25,000 UNITS/250 ML BAG IV SCH (05:16)
[2017-11-01] MEDS: Pantoprazole 40 mg EC Tab PO SCH (05:17)
--- NOTE | 2017-11-01 06:15 | CP.PCM.PN ---
<JassFlexpratima Funez - Last Filed: 11/01/17 17:55> Subjective - Date & Time of Evaluation Date of Evaluation: 11/01/17 Time of Evaluation: 06:00 - Subjective Subjective: Pt seen and examined at bedside this morning. Spoke with pt nurse, she reported high blood glucose levels yesterday night, after ROBYN. Pt denies diarrhea, chest pain, or SOB. Objective - Vital Signs/Intake and Output Vital Signs (last 24 hours): Temp Pulse Resp BP Pulse Ox 98.6 F 92 H 12 118/76 96 11/01/17 05:29 11/01/17 05:30 11/01/17 05:29 11/01/17 05:29 11/01/17 05:29 Intake and Output: 10/31/17 11/01/17 18:59 06:59 Intake Total 1980 840 Output Total 5 Balance 1975 840 - Medications Medications: Current Medications Acetaminophen (Tylenol 325mg Tab) 650 mg PO Q6H PRN PRN Reason: Temperature Last Admin: 10/25/17 18:18 Dose: 650 mg Albuterol Sulfate (Albuterol 0.083% Inhal Isha (2.5 Mg/3 Ml) Ud) 2.5 mg INH [id number] PRN PRN Reason: Shortness of Breath Aspirin (Aspirin Chewable) 81 mg PO DAILY [facility] Last Admin: 10/31/17 10:56 Dose: 81 mg Atorvastatin Calcium (Lipitor) 20 mg PO DIN [place] Last Admin: 10/31/17 16:48 Dose: 20 mg Carvedilol (Coreg) 3.125 mg PO 0800,1800 [facility] Cyclobenzaprine HCl (Flexeril) 5 mg PO TID PRN PRN Reason: Pain, severe (8-10) Last Admin: 10/28/17 08:19 Dose: 5 mg Hydromorphone HCl (Dilaudid) 1 mg IVP Q4H PRN PRN Reason: Pain, severe (8-10) Last Admin: 11/01/17 05:49 Dose: 1 mg Heparin Sodium/Sodium Chloride (Heparin 87319 Units/250ml 1/2 Normal Saline) 25 ,000 units in 250 mls @ 14.288 mls/hr IV .[id number] LA; 18 UNITS/KG/HR PRN Reason: Protocol Last Titration: 11/01/17 05:52 Dose: 25 units/kg/hr, 19.845 mls/hr Dobutamine HCl/Dextrose (Dobutamine/Dextrose 5% 500mg/250ml) 500 mg in 250 mls @ 4.714 mls/hr IV .Q24H PRN; Protocol; 2 MCG/KG/MIN PRN Reason: TITRATE PER PROTOCOL Last Admin: 10/30/17 11:26 Dose: 2 mcg/kg/min, 4.714 mls/hr Insulin Detemir (Levemir) 50 unit SC HS [facility] Last Admin: 10/31/17 22:34 Dose: 50 units Insulin Human Lispro (Humalog Low) 0 units SC ACHS [place] PRN Reason: Protocol Last Admin: 10/31/17 22:31 Dose: Not Given Insulin Lispro Protam/Lispro Human (Humalog Mix 75/25) 30 units SC ACB [facility] Last Admin: 10/30/17 09:07 Dose: 30 units Insulin Lispro Protam/Lispro Human (Humalog Mix 75/25) 20 units SC ACD [facility] Lidocaine (Lidoderm) 1 ea TD DAILY [facility] Last Admin: 10/31/17 11:45 Dose: Not Given Losartan Potassium (Cozaar) 12.5 mg PO DAILY [facility] Last Admin: 10/31/17 10:55 Dose: 12.5 mg Pantoprazole Sodium (Protonix Ec Tab) 40 mg PO 0600 [facility] Last Admin: 11/01/17 05:17 Dose: 40 mg Vancomycin HCl (Vancocin 25 Mg/Ml (Oral Use)) 250 mg PO QID LA PRN Reason: Protocol Last Admin: 10/31/17 21:17 Dose: 250 mg Warfarin Sodium (Coumadin) 5 mg PO DAILY [facility] PRN Reason: Protocol Last Admin: 10/31/17 16:47 Dose: 5 mg - Labs Labs: 10/31/17 07:00 10/31/17 07:00 PT 12.7 SECONDS (9.4-12.5) H 10/28/17 05:00 INR 1.10 10/28/17 05:00 APTT 83.7 Seconds (25.1-36.5) H 11/01/17 05:15 - Constitutional Appears: No Acute Distress - Head Exam Head Exam: ATRAUMATIC, NORMOCEPHALIC - Eye Exam Eye Exam: EOMI - ENT Exam ENT Exam: Mucous Membranes Moist - Neck Exam Neck Exam: Full ROM - Respiratory Exam Respiratory Exam: Clear to Ausculation Bilateral, NORMAL BREATHING PATTERN. absent: Accessory Muscle Use, Wheezes, Respiratory Distress, Stridor - Cardiovascular Exam Cardiovascular Exam: REGULAR RHYTHM, RRR, +S1. absent: JVD - GI/Abdominal Exam GI & Abdominal Exam: Soft, Normal Bowel Sounds. absent: Guarding, Rigid, Tenderness, Rebound - Extremities Exam Extremities Exam: Full ROM. absent: Calf Tenderness, Pedal Edema - Back Exam Back Exam: Full ROM, NORMAL INSPECTION. absent: CVA tenderness (L), CVA tenderness (R) - Neurological Exam Neurological Exam: Alert, Awake, Oriented x3 - Psychiatric Exam Psychiatric exam: Normal Affect, Normal Mood - Skin Skin Exam: Dry, Normal Color, Warm Assessment and Plan - Assessment and Plan (Free Text) Assessment: Pt is a 41 yo Male with PMH of Factor V Leiden, DVT, PE, HTN, DM, CHF, HLD, and splenectomy who presented with SOB and left-sided chest pain x3 days, treated for DKA. Pt is experiencing persistent leukocytosis, pt has PICC line placed for out pt IV antibiotics. Cardio suggests pt stay for IV dobutamin, and has an exercise stress test after leukocytosis has returned to normal limits. Plan: Persistent Leukocytosis - Pt started on a PICC line, will start 7 days of Rocephin, (for a total of 2 weeks from negative blood cultures) - pt to continue IV Rocephin as out pt Factor V Leiden - pt started on lovenox bridge - continue warfarin C. Diff - continue PO vanc for 5 more days Back Pain - continue diladid 1mg IVP q4h PRN DM - Levemir 60 HS - Lispro 75/25 30 units ACD - Lispro 75/25 40 units ACB - ISS Low CHF - Cardio recommendations: symptoms well controlled on IV dobutamine, continue for the next 24 hours. Once infection is better, evaluate with an exercise tolerance test. After the exercise tolerance test, the pt will be evaluated to see if he should be added to the heart transplant program. - continue losartan - continue lipitor 20mg - continue to monitor Ppx - SCD - pantoprazole Pt seen, examined, and assessment/ plan discussed with Dr Gibbs. Flex Regan PGY1, Internal Medicine Resident <Yury Gibbs - Last Filed: 11/02/17 17:48> Objective - Vital Signs/Intake and Output Vital Signs (last 24 hours): Temp Pulse Resp BP Pulse Ox 98.5 F 76 18 110/75 98 11/02/17 12:00 11/02/17 12:00 11/02/17 12:00 11/02/17 12:00 11/02/17 12:00 Intake and Output: 11/02/17 11/02/17 06:59 18:59 Intake Total 301 70.71 Balance 301 70.71 - Labs Labs: 11/02/17 06:00 11/02/17 06:00 PT 13.2 SECONDS (9.4-12.5) H 11/01/17 11:40 INR 1.14 11/01/17 11:40 APTT 69.1 Seconds (25.1-36.5) H 11/01/17 11:40 Attending/Attestation - Attestation I have personally seen and examined this patient.: Yes I have fully participated in the care of the patient.: Yes I have reviewed all pertinent clinical information, including history, physical exam and plan: Yes Notes (Text): 11/02/17 17:48 Medical record note made by the resident after discussion with my direction and input after the patient was personally seen and examined by me. I have reviewed the chart and agree that the record accurately reflects by personal performance of the history, physical exam, data review, and medical decision-making, in the course for the patient. I have also personally directed the plan of care.
[2017-11-01] MEDS: Insulin Lispro (humaLOG) LOW Coverage SC SCH ×4 (06:41→21:35)
[2017-11-01 07:49] LABS: INR 1.18; PROTHROMBIN TIME 13.6 SECONDS (9.4-12.5)
[2017-11-01] MEDS: Insulin Lispro (humaLOG) MIX 75/25(10 ml) SC SCH (07:50)
[2017-11-01 09:12] LABS: HEMOGLOBIN 10.7 g/dL (14.0-18.0); MEAN CELL VOLUME 85.1 fl (80.0-105.0); MEAN CORPUSCULAR HEMOGLOBIN 27.9 pg (25.0-35.0); MEAN CORPUSCULAR HGB CONC 32.8 g/dl (31.0-37.0); MEAN PLATELET VOLUME 12.3 fl (7.0-11.0); RBC 3.83 10^6/uL (3.5-6.1); RED CELL DISTRIBUTION WIDTH 15.8 % (11.5-14.5); WHITE BLOOD COUNT 17.4 10^3/ul (4.5-11.0)
[2017-11-01] MEDS: Vancomycin 25 MG/ML PO SCH ×4 (09:24→21:40)
[2017-11-01] MEDS: Lidocaine 5% Patch TD SCH (09:25)
[2017-11-01] MEDS: cefTRIAXone 1 gm 1 GM/100 ML BAG IVPB SCH (09:25)
--- NOTE | 2017-11-01 10:48 | PN ---
Copied To: Jodi Burrows MD Attending MD: Jodi Burrows MD DATE: 11/01/2017 ENDOCRINOLOGY FOLLOWUP NOTE SUBJECTIVE: This is a 41-year-old male with recent uncontrolled type 2 insulin-requiring diabetes presenting here with chest pain and undergoing cardiac workup at this time and just underwent a ROBYN procedure yesterday as noted. Hyperglycemic levels supervened overnight with glucose levels ranging from 349-443 and 471 mg/dL. His latest chemistry showed a BUN of 7, sodium 134, potassium 4.8, chloride 96, CO2 of 29, glucose 273 and creatinine 0.5. So at this time, we will modify once again his basal and bolus insulin regimen and increase the premixed insulin with Humalog 75 25 given as 40 units before breakfast and 30 units before dinner to start today. We will all. We will also increase the basal insulin with Levemir to be given at 60 units subcu at bedtime daily to start tonight. We will continue the low-dose correction scale using Humalog insulin as ordered. We will obtain serial chemistries and supplement accordingly as needed. We will follow. Jodi Burrows MD
[2017-11-01 12:00] LABS: INR 1.14; PARTIAL THROMBOPLASTIN TIME 69.1 Seconds (25.1-36.5); PROTHROMBIN TIME 13.2 SECONDS (9.4-12.5)
--- NOTE | 2017-11-01 13:45 | CP.PCM.DIS ---
Provider - Provider Date of Admission: 10/24/17 15:28 Attending physician: Yury Gibbs MD Primary care physician: Allyssa Lowe DO Consults: Cardio Endocrine Heme/ onc ID GI ICU Time Spent in preparation of Discharge (in minutes): 45 Diagnosis - Discharge Diagnosis (1) Leukocytosis Status: Acute Priority: High (2) Shortness of breath Status: Acute Priority: High (3) Cardiomyopathy Status: Acute Priority: High (4) Coagulopathy Status: Acute Priority: Medium (5) Congestive heart failure (CHF) Status: Acute Priority: High (6) Factor V deficiency Status: Acute Priority: Medium (7) DKA (diabetic ketoacidoses) Status: Acute Priority: High Hospital Course - Lab Results Lab Results: Micro Results 10/27/17 14:15 Blood-Venous Blood Culture - Preliminary NO GROWTH AFTER 4 DAYS 10/27/17 14:00 Blood-Venous Blood Culture - Preliminary NO GROWTH AFTER 4 DAYS 10/27/17 11:00 Stool C. difficile Antigen & Toxin A,B (M - Final 10/24/17 22:03 Naris MRSA Culture (Admit) - Final MRSA NOT DETECTED 10/25/17 00:25 Blood-Venous Blood Culture - Final Streptococcus anginosus group 10/25/17 00:25 Blood-Venous Gram Stain - Final 10/25/17 00:15 Blood-Venous S.aureus & Coag-Neg Staph PNA FISH - Final 10/25/17 00:15 Blood-Venous Blood Culture - Final Streptococcus anginosus group 10/25/17 00:15 Blood-Venous Gram Stain - Final 10/24/17 23:19 Urine Urine Culture - Final No Growth (<1,000 CFU/ML) Most Recent Lab Values WBC 17.4 10^3/ul (4.5-11.0) H 11/01/17 06:30 RBC 3.83 10^6/uL (3.5-6.1) 11/01/17 06:30 Hgb 10.7 g/dL (14.0-18.0) L 11/01/17 06:30 Hct 32.6 % (42.0-52.0) L 11/01/17 06:30 MCV 85.1 fl (80.0-105.0) 11/01/17 06:30 MCH 27.9 pg (25.0-35.0) 11/01/17 06:30 MCHC 32.8 g/dl (31.0-37.0) 11/01/17 06:30 RDW 15.8 % (11.5-14.5) H 11/01/17 06:30 Plt Count 413 10^3/uL (120.0-450.0) 11/01/17 06:30 MPV 12.3 fl (7.0-11.0) H 11/01/17 06:30 Gran % 53.0 % (50.0-68.0) 10/31/17 07:00 Lymph % (Auto) 28.2 % (22.0-35.0) 10/31/17 07:00 [place] % (Auto) 14.7 % (1.0-6.0) H 10/31/17 07:00 Eos % (Auto) 3.3 % (1.5-5.0) 10/31/17 07:00 Baso % (Auto) 0.8 % (0.0-3.0) 10/31/17 07:00 Gran # 10.08 (1.4-6.5) H 10/31/17 07:00 Lymph # (Auto) 5.4 (1.2-3.4) H 10/31/17 07:00 [place] # (Auto) 2.8 (0.1-0.6) H 10/31/17 07:00 Eos # (Auto) 0.6 (0.0-0.7) 10/31/17 07:00 Baso # (Auto) 0.16 K/mm3 (0.0-2.0) 10/31/17 07:00 Neutrophils % (Manual) 72 % (50.0-70.0) H 10/25/17 05:30 Band Neutrophils % 7 % (0-2) H 10/25/17 05:30 Lymphocytes % (Manual) 17 % (22.0-35.0) L 10/25/17 05:30 Monocytes % (Manual) 4 % (1.0-6.0) 10/25/17 05:30 Platelet Evaluation Normal (NORMAL) 10/25/17 05:30 PT 13.2 SECONDS (9.4-12.5) H 11/01/17 11:40 INR 1.14 11/01/17 11:40 APTT 69.1 Seconds (25.1-36.5) H 11/01/17 11:40 D-Dimer, Quantitative 380 ng/mlDDU (0-243) H 10/24/17 14:21 pCO2 29 mm/Hg (35-45) L 10/24/17 17:35 pO2 89.0 mm/Hg (80-100) 10/24/17 17:35 HCO3 16.8 mmol/L (21-28) L 10/24/17 17:35 ABG pH 7.37 (7.35-7.45) 10/24/17 17:35 ABG Total CO2 17.7 mmol.L (22-28) L 10/24/17 17:35 ABG O2 Saturation 98.1 % (95-98) H 10/24/17 17:35 ABG Base Excess -7.1 mmol/L (-2.0-3.0) L 10/24/17 17:35 ABG Potassium 4.3 mmol/L (3.6-5.2) 10/24/17 17:35 Sodium 129.0 mmol/L (132-148) L 10/24/17 17:35 Chloride 96.0 mmol/L (98-107) L 10/24/17 17:35 Glucose 445 mg/dl (75-110) H* 10/24/17 17:35 Lactate 1.3 mmol/L (0.7-2.1) 10/24/17 17:35 FiO2 21.0 % 10/24/17 17:35 Sodium 134 mmol/L (132-148) 10/31/17 07:00 Potassium 4.8 mmol/L (3.6-5.0) 10/31/17 07:00 Chloride 96 mmol/L (98-107) L 10/31/17 07:00 Carbon Dioxide 29 mmol/L (21-33) 10/31/17 07:00 Anion Gap 14 (10-20) 10/31/17 07:00 BUN 7 mg/dL (7-21) 10/31/17 07:00 Creatinine 0.5 mg/dl (0.8-1.5) L 10/31/17 07:00 Est GFR ( Amer) > 60 10/31/17 07:00 Est GFR (Non-Af Amer) > 60 10/31/17 07:00 POC Glucose (mg/dL) 97 mg/dL (65-110) 11/01/17 11:34 Random Glucose 273 mg/dL (70-110) H 10/31/17 07:00 Hemoglobin A1c 9.3 % (4.2-6.5) H 10/24/17 14:21 Lactic Acid 1.5 mmol/L (0.7-2.1) 10/26/17 09:30 Calcium 8.7 mg/dL (8.4-10.5) 10/31/17 07:00 Phosphorus 3.6 mg/dL (2.5-4.5) 10/30/17 05:30 Magnesium 1.9 mg/dL (1.7-2.2) 10/30/17 05:30 Total Bilirubin 0.4 mg/dL (0.2-1.3) 10/31/17 07:00 AST 20 U/L (17-59) 10/31/17 07:00 ALT 51 U/L (7-56) 10/31/17 07:00 Alkaline Phosphatase 276 U/L (38-126) H 10/31/17 07:00 Troponin I 0.19 ng/mL H* D 10/26/17 02:10 NT-Pro-B Natriuret Pep 2160 pg/mL (0-450) H 10/24/17 14:21 Total Protein 4.7 g/dL (5.8-8.3) L 10/31/17 07:00 Albumin 2.9 g/dL (3.0-4.8) L 10/31/17 07:00 Globulin 1.8 gm/dL 10/31/17 07:00 Albumin/Globulin Ratio 1.6 (1.1-1.8) 10/31/17 07:00 Triglycerides 140 mg/dL (35-160) 10/25/17 05:30 Cholesterol 141 mg/dL (130-200) 10/25/17 05:30 LDL Cholesterol Direct 94 mg/dL (0-129) 10/25/17 05:30 HDL Cholesterol 23 mg/dL (29-60) L 10/25/17 05:30 Procalcitonin 1.91 NG/ML (0.19-0.49) H 10/24/17 14:21 Arterial Blood Potassium 4.3 mmol/L (3.6-5.2) 10/24/17 17:35 Urine Color Yellow (YELLOW) 10/24/17 21:07 Urine Appearance Clear (CLEAR) 10/24/17 21:07 Urine pH 6.0 (4.7-8.0) 10/24/17 21:07 Ur Specific [place]inson 1.015 (1.005-1.035) 10/24/17 21:07 Urine Protein Negative mg/dL (<30 mg/dL) 10/24/17 21:07 Urine Glucose (UA) >=1000 mg/dL (NEGATIVE) 10/24/17 21:07 Urine Ketones 40 mg/dL (NEGATIVE) H 10/24/17 21:07 Urine Blood Negative (NEGATIVE) 10/24/17 21:07 Urine Nitrate Negative (NEGATIVE) 10/24/17 21:07 Urine Bilirubin Negative (NEGATIVE) 10/24/17 21:07 Urine Urobilinogen 0.2 E.U./dL (<1 E.U./dL) 10/24/17 21:07 Ur Leukocyte Esterase Negative Cori/uL (NEGATIVE) 10/24/17 21:07 Vancomycin Trough 5.8 ug/mL (5.0-10.0) 10/27/17 17:27 Urine Opiates Screen Positive (NEGATIVE) H 10/24/17 21:07 Urine Methadone Screen Negative (NEGATIVE) 10/24/17 21:07 Ur Barbiturates Screen Negative (NEGATIVE) 10/24/17 21:07 Ur Phencyclidine Scrn Negative (NEGATIVE) 10/24/17 21:07 Ur Amphetamines Screen Negative (NEGATIVE) 10/24/17 21:07 U Benzodiazepines Scrn Negative (NEGATIVE) 10/24/17 21:07 U Oth Cocaine Metabols Negative (NEGATIVE) 10/24/17 21:07 U Cannabinoids Screen Negative (NEGATIVE) 10/24/17 21:07 - Hospital Course Hospital Course: Pt is a 41 yo male with a PMH of Factor Leiden, DVT, PE, ventricular thrombectomy, HTN, CHF, DM, CHF, AICD, HLD, splenectomy who presents with SOB and left sided chest pain for 3 days prior to admission. Pt is a poor historian. Pt reports taking Cosentyn approximately 3 weeks ago for his psoriatic arthritis, which is about the same time that he started feeling unwell. As per pt's pharmacy, he was started on Bentyl 40mg and Prednisone 20mg daily each for 5 days, and Augmentin 875mg BID for 10 days. Pt reports completion of the course, but with no improvement of symptoms, and for the last 2-3 days, feeling so weak and malaised that he remained in bed, did not eat anything (reports "vomiting up" any PO liquid intake during this time), and did not take his medications. On the day of admission, he checked his blood sugars, found them elevated in the 400's, took some of his home insulin, did not see an improvement, and presented to [facility] [place]. Pt reports left sided non-radiating chest pain which was made worse with deep breathing/ palpation. Pt denies shortness of breath currently at rest, but admits to at-rest shortness of breath while at home and exertional shortness of breath. Pt admitted to intermittent diarrhea but denied melena or hematochezia. Upon admission pt was found to have a troponin of 0.13 and his EKG was concerning for new T wave depression in V4-V6, a leukocytosis of 29 an anion gap of 18. Pt was treated for DKA in the ICU and moved to the floor. Pt had persistent leukocytosis, and an ECHO was performed to rule out endocarditis or an infected AICD. On 10/26 blood cultures grew Gram + cocci in chains, ROBYN to be done as per Cardio, severely elevated white count ( > 50's). Pt was placed on Rocephin while in pt, and we will continue for 7 more days as out pt via PICC line. Pt was found positive for C. diff infection and was treated with oral vanc, we will continue with oral vanc 250mg QID for 5 days. Started on lovenox and will be bridged to Warfarin. Cardio suggested pt be added to a heart transplant list. Pt advised to follow up with Dr Santoyo. Pt advised to return to the closest ED if symptoms return/ worsen. - Date & Time of H&P Date of H&P: 11/01/17 Time of H&P: 07:00 Discharge Exam - Head Exam Head Exam: ATRAUMATIC, NORMOCEPHALIC - Eye Exam Eye Exam: EOMI - ENT Exam ENT Exam: Mucous Membranes Moist - Respiratory Exam Respiratory Exam: NORMAL BREATHING PATTERN, UNREMARKABLE. absent: Accessory Muscle Use, Wheezes, Respiratory Distress - Cardiovascular Exam Cardiovascular Exam: REGULAR RHYTHM, RRR, +S1, +S2. absent: Diastolic murmur, JVD, Systolic Murmur - GI/Abdominal Exam GI & Abdominal Exam: Normal Bowel Sounds - Extremities Exam Extremities exam: full ROM - Back Exam Back exam: FULL ROM. absent: CVA tenderness (L), CVA tenderness (R) - Neurological Exam Neurological exam: Alert, Oriented x3 - Psychiatric Exam Psychiatric exam: Normal Affect, Normal Mood - Skin Skin Exam: Dry, Normal Color, Warm Discharge Plan - Follow Up Plan Condition: FAIR Disposition: HOME/ ROUTINE Instructions: Chest Pain, Clostridium difficile Additional Instructions: 1. Follow up with PMD within 3-5 days 2. Continue with warfarin, continue to subcutaneous lovenox twice a day 80 mg every 12 hours and recheck INR on Monday. 3. Follow up with gas engine performance engineer , suggest pt be added to heart transplant list 4. Please get CBC, CMP, CRP, INR within one week. 5. Pt has picc line for Rocephin, continue to take until 11/09. 6. You will continue to take Vancomycin 250mg four times per day until 11/06 Referrals: Allyssa Lowe DO [Primary Care Provider] -
--- NOTE | 2017-11-01 13:59 | PN ---
Copied To: Jasbir Santoyo MD Attending MD: Jasbir Santoyo MD DATE: 11/01/2017 CARDIOLOGY FOLLOWUP The patient is in bed ambulating to the bathroom without symptoms. OBJECTIVE: VITAL SIGNS: Blood pressure is 126/90, the heart rate is in the 90s. NECK: Negative JVD. LUNGS: Without rales. HEART: Reveal S1, S2. EXTREMITIES: Without edema. LABORATORY DATA: White count is down to 17,000, hemoglobin is 10.7, glucose is 97. IMPRESSION: 1. Sepsis. 2. No evidence for endocarditis. 3. Diabetes mellitus. 4. End-stage dilated cardiomyopathy. 5. Resolution of congestive heart failure. Congestive heart failure symptoms are well controlled on IV dobutamine. Given these findings, we will continue dobutamine for next 24 hours. Once his infection is better, we will have a better chance to evaluate his exercise tolerance with his cardiomyopathy. Whether the patient should be referred to the heart transplant program would e a question to be answered once we understand his exercise tolerance. Jasbir Santoyo MD
--- NOTE | 2017-11-01 15:11 | CP.PCM.PN ---
Subjective - Date & Time of Evaluation Date of Evaluation: 11/01/17 Time of Evaluation: 14:00 - Subjective Subjective: Infectious Disease Follow Up: November 01, 2017 41 yo male with extensive PMHx that includes Factor V Leiden s/p DVTs/PEs/IVC filter/L ventricular thrombectomy (2004) on Coumadin, HTN, DM, CHF s/p AICD placement, AICD replacement 2/2 [place] [facility] [place] psoriatic arthritis, HLD, and splenectomy (2003) who presents with complaint of shortness of breath and left-sided chest pain x3 days. As per patient, he started to feel unwell 3 weeks ago after receiving last Cosentyn injection. He apparently received Bentyl and Prednisone for 5 days with 10 days of Augmentin. No improvement. Had SOB at home and high glucose levels above 400. Claimed poor oral intake. [place] trop in [place] [facility] Question of medication compliance as the patient's pharmacy has several medications listed there that have not been filled in the past year. Tachcardia under control today. Still with episodes of hypotension. Remains on Vancomycin and Rocephin for antibiotic coverage. Complains of less back pain today. Cultures showing streptococcus anginosus growth. C. Diff studies showing positive antigen but negative toxin. Noted oral Vancomycin started. Blood cultures showing Streptococci Anginosus. For ROBYN on Monday to rule out endocarditis. WBC increased slightly to 19.0 from 17.4 today. ROBYN did not show any vegetations. Objective - Vital Signs/Intake and Output Vital Signs (last 24 hours): Temp Pulse Resp BP Pulse Ox 98.6 F 94 H 20 126/90 96 11/01/17 11:50 11/01/17 11:50 11/01/17 11:50 11/01/17 11:50 11/01/17 05:29 Intake and Output: 11/01/17 11/01/17 06:59 18:59 Intake Total 1151 Balance 1151 - Medications Medications: Current Medications Acetaminophen (Tylenol 325mg Tab) 650 mg PO Q6H PRN PRN Reason: Temperature Last Admin: 10/25/17 18:18 Dose: 650 mg Albuterol Sulfate (Albuterol 0.083% Inhal Isha (2.5 Mg/3 Ml) Ud) 2.5 mg INH [id number] PRN PRN Reason: Shortness of Breath Aspirin (Aspirin Chewable) 81 mg PO DAILY [facility] Last Admin: 11/01/17 09:24 Dose: 81 mg Atorvastatin Calcium (Lipitor) 20 mg PO DIN [facility] Last Admin: 10/31/17 16:48 Dose: 20 mg Carvedilol (Coreg) 3.125 mg PO 0800,1800 [facility] Cyclobenzaprine HCl (Flexeril) 5 mg PO TID PRN PRN Reason: Pain, severe (8-10) Last Admin: 10/28/17 08:19 Dose: 5 mg Hydromorphone HCl (Dilaudid) 1 mg IVP Q4H PRN PRN Reason: Pain, severe (8-10) Heparin Sodium/Sodium Chloride (Heparin 34487 Units/250ml 1/2 Normal Saline) 25 ,000 units in 250 mls @ 14.288 mls/hr IV .[id number] LA; 18 UNITS/KG/HR PRN Reason: Protocol Last Titration: 11/01/17 05:52 Dose: 25 units/kg/hr, 19.845 mls/hr Dobutamine HCl/Dextrose (Dobutamine/Dextrose 5% 500mg/250ml) 500 mg in 250 mls @ 4.714 mls/hr IV .Q24H PRN; Protocol; 2 MCG/KG/MIN PRN Reason: TITRATE PER PROTOCOL Last Admin: 10/30/17 11:26 Dose: 2 mcg/kg/min, 4.714 mls/hr Ceftriaxone Sodium (Rocephin 1 Gram Ivpb) 1 gm in 100 mls @ 100 mls/hr IVPB DAILY [facility] PRN Reason: Protocol Last Admin: 11/01/17 09:25 Dose: 100 mls/hr Insulin Detemir (Levemir) 60 unit SC HS LA Insulin Human Lispro (Humalog Low) 0 units SC ACHS LA PRN Reason: Protocol Last Admin: 11/01/17 12:02 Dose: Not Given Insulin Lispro Protam/Lispro Human (Humalog Mix 75/25) 40 units SC ACB LA Insulin Lispro Protam/Lispro Human (Humalog Mix 75/25) 30 units SC ACD [facility] Lidocaine (Lidoderm) 1 ea TD DAILY [facility] Last Admin: 11/01/17 09:25 Dose: 1 ea Losartan Potassium (Cozaar) 12.5 mg PO DAILY [facility] Last Admin: 11/01/17 09:23 Dose: 12.5 mg Pantoprazole Sodium (Protonix Ec Tab) 40 mg PO 0600 [facility] Last Admin: 11/01/17 05:17 Dose: 40 mg Vancomycin HCl (Vancocin 25 Mg/Ml (Oral Use)) 250 mg PO QID [facility] PRN Reason: Protocol Last Admin: 11/01/17 13:35 Dose: 250 mg Warfarin Sodium (Coumadin) 5 mg PO DAILY [facility] PRN Reason: Protocol Last Admin: 11/01/17 09:24 Dose: 5 mg - Labs Labs: 11/01/17 06:30 10/31/17 07:00 PT 13.2 SECONDS (9.4-12.5) H 11/01/17 11:40 INR 1.14 11/01/17 11:40 APTT 69.1 Seconds (25.1-36.5) H 11/01/17 11:40 - Constitutional Appears: Non-toxic, No Acute Distress, Chronically Ill - Head Exam Head Exam: ATRAUMATIC, NORMOCEPHALIC - Eye Exam Eye Exam: EOMI, PERRL Pupil Exam: NORMAL ACCOMODATION, PERRL - ENT Exam ENT Exam: Mucous Membranes Moist, Normal External Ear Exam, TM's Normal Bilaterally - Neck Exam Neck Exam: Full ROM, Normal Inspection - Respiratory Exam Respiratory Exam: Clear to Ausculation Bilateral, NORMAL BREATHING PATTERN. absent: Rales, Rhonchi, Wheezes - Cardiovascular Exam Cardiovascular Exam: REGULAR RHYTHM, RRR, +S1, +S2 - GI/Abdominal Exam GI & Abdominal Exam: Soft, Normal Bowel Sounds. absent: Distended, Tenderness - Extremities Exam Extremities Exam: Full ROM, Normal Inspection - Neurological Exam Neurological Exam: Alert, Awake, CN II-XII Intact, Oriented x3 - Psychiatric Exam Psychiatric exam: Normal Affect, Normal Mood - Skin Skin Exam: Intact, Normal Color Assessment and Plan - Assessment and Plan (Free Text) Assessment: 41 yo male with vague complaints of feeling unwell with significant leukocytosis of 29. Extensive PMHx of L ventricular thromboectomy (2003), R Femur fracture repair (2003), IVC filter placement, arthoscopic debridement, synovectomy for right septic knee joint, splenectomy 2003, tonsillectomy 2016, AICD placement, AICD removal and replacement (2/2 infected hardware). The patient with complaints of SOB and left sided chest pain. No specific findings of the Chest X-ray. Supportive care. Continued on Cefepime and IV Vancomycin at this time. Although not tachycardia today, the patient still has hypotensive episodes. Given a single dose of Gentamicin during this hospitalization. Leukocytosis 19.0 today. High of 56.8. Broad spectrum antibiotics for sepsis of unclear source. Cultures are showing gram positive diplococci. Possible Streptococci. On Ceftriaxone. Still awaiting final cultures. Patient with back pain still but improving. Lund cultures. May need further imaging studies with CT scan. CT angio negative for PE. CT abdomen and pelvis was unremarkable. C. Diff testing was done showing positive antigen but negative toxin. Started on PO Vancomycin. 125mg PO q6hrs 10 day course. On the whole the patient is having less back pain compared to admission. The patient with ROBYN negative for vegetations. Can complete two week course of Rocephin. Thank you for allowing me to participate in the care of the patient, we will follow with you.
[2017-11-01] MEDS ORDERED: Insulin Lispro (humaLOG) MIX 75/25(10 ml) SC SCH (16:30)
[2017-11-01] MEDS: HYDROmorphone 1 mg/ml ISec IVP PRN ×2 (18:08→21:40)
[2017-11-01] MEDS: DOBUTamine 500mg/250ml D5W 500 MG/250 ML BAG IV PRN (19:29)
[2017-11-01] MEDS ORDERED: Insulin Detemir 100 units/ml Vial (Levemir) SC SCH (22:00)
[2017-11-02 00:12] VITALS: RESP 18
[2017-11-02] MEDS: HYDROmorphone 1 mg/ml ISec IVP PRN ×4 (01:55→13:54)
[2017-11-02] MEDS: Pantoprazole 40 mg EC Tab PO SCH (05:50)
--- NOTE | 2017-11-02 06:19 | CP.PCM.PN ---
Subjective - Date & Time of Evaluation Date of Evaluation: 11/02/17 Time of Evaluation: 06:15 - Subjective Subjective: Pt seen and examined this morning. Pt denies chest pain, SOB, fevers, or chills. Pt reports some back pain, which has not changed. Objective - Vital Signs/Intake and Output Vital Signs (last 24 hours): Temp Pulse Resp BP Pulse Ox 98.2 F 86 18 113/73 97 11/02/17 06:00 11/02/17 06:00 11/02/17 06:00 11/02/17 06:00 11/02/17 06:00 Intake and Output: 11/01/17 11/02/17 18:59 06:59 Intake Total 208 301 Balance 208 301 - Medications Medications: Current Medications Acetaminophen (Tylenol 325mg Tab) 650 mg PO Q6H PRN PRN Reason: Temperature Last Admin: 10/25/17 18:18 Dose: 650 mg Albuterol Sulfate (Albuterol 0.083% Inhal Isha (2.5 Mg/3 Ml) Ud) 2.5 mg INH [id number] PRN PRN Reason: Shortness of Breath Aspirin (Aspirin Chewable) 81 mg PO DAILY [facility] Last Admin: 11/01/17 09:24 Dose: 81 mg Atorvastatin Calcium (Lipitor) 20 mg PO DIN [facility] [place] Last Admin: 11/01/17 18:00 Dose: 20 mg Carvedilol (Coreg) 3.125 mg PO 0800,1800 [place] Cyclobenzaprine HCl (Flexeril) 5 mg PO TID PRN PRN Reason: Pain, severe (8-10) Last Admin: 10/28/17 08:19 Dose: 5 mg Hydromorphone HCl (Dilaudid) 1 mg IVP Q4H PRN PRN Reason: Pain, severe (8-10) Last Admin: 11/02/17 05:50 Dose: 1 mg Dobutamine HCl/Dextrose (Dobutamine/Dextrose 5% 500mg/250ml) 500 mg in 250 mls @ 4.714 mls/hr IV .Q24H PRN; Protocol; 2 MCG/KG/MIN PRN Reason: TITRATE PER PROTOCOL Last Admin: 11/01/17 19:29 Dose: 2 mcg/kg/min, 4.714 mls/hr Ceftriaxone Sodium (Rocephin 1 Gram Ivpb) 1 gm in 100 mls @ 100 mls/hr IVPB DAILY [facility] PRN Reason: Protocol Last Admin: 11/01/17 09:25 Dose: 100 mls/hr Insulin Detemir (Levemir) 60 unit SC HS [facility] [place] Last Admin: 11/01/17 21:35 Dose: 60 units Insulin Human Lispro (Humalog Low) 0 units SC ACHS [facility] PRN Reason: Protocol Last Admin: 11/01/17 21:35 Dose: Not Given Insulin Lispro Protam/Lispro Human (Humalog Mix 75/25) 40 units SC ACB [facility] [place] Insulin Lispro Protam/Lispro Human (Humalog Mix 75/25) 30 units SC ACD [facility] [place] Last Admin: 11/01/17 17:59 Dose: 30 unit Lidocaine (Lidoderm) 1 ea TD DAILY [facility] [place] Last Admin: 11/01/17 09:25 Dose: 1 ea Losartan Potassium (Cozaar) 12.5 mg PO DAILY [facility] [place] Last Admin: 11/01/17 09:23 Dose: 12.5 mg Pantoprazole Sodium (Protonix Ec Tab) 40 mg PO 0600 [facility] [place] Last Admin: 11/02/17 05:50 Dose: 40 mg Vancomycin HCl (Vancocin 25 Mg/Ml (Oral Use)) 250 mg PO QID [facility] PRN Reason: Protocol Last Admin: 11/01/17 21:40 Dose: 250 mg Warfarin Sodium (Coumadin) 5 mg PO DAILY [facility] PRN Reason: Protocol Last Admin: 11/01/17 09:24 Dose: 5 mg - Labs Labs: 11/01/17 06:30 10/31/17 07:00 PT 13.2 SECONDS (9.4-12.5) H 11/01/17 11:40 INR 1.14 11/01/17 11:40 APTT 69.1 Seconds (25.1-36.5) H 11/01/17 11:40 - Constitutional Appears: No Acute Distress - Head Exam Head Exam: ATRAUMATIC, NORMOCEPHALIC - Eye Exam Eye Exam: EOMI - ENT Exam ENT Exam: Mucous Membranes Moist - Respiratory Exam Respiratory Exam: Clear to Ausculation Bilateral, NORMAL BREATHING PATTERN - Cardiovascular Exam Cardiovascular Exam: REGULAR RHYTHM, RRR, +S1, +S2 - GI/Abdominal Exam GI & Abdominal Exam: Soft, Normal Bowel Sounds. absent: Tenderness - Extremities Exam Extremities Exam: Full ROM - Back Exam Back Exam: absent: CVA tenderness (L), CVA tenderness (R) - Neurological Exam Neurological Exam: Alert, Awake, Oriented x3 - Psychiatric Exam Psychiatric exam: Normal Affect, Normal Mood - Skin Skin Exam: Dry, Normal Color, Warm Assessment and Plan - Assessment and Plan (Free Text) Assessment: Pt is a 41 yo Male with PMH of Factor V Leiden, DVT, PE, HTN, DM, CHF, HLD, and splenectomy who presented with SOB and left-sided chest pain x3 days, treated for DKA. Pt is experiencing persistent leukocytosis, pt has PICC line placed for out pt IV antibiotics. Cardio suggests pt stay for IV dobutamin, and has an exercise stress test after leukocytosis has resolved.
[2017-11-02 06:24] LABS: HEMOGLOBIN 11.6 g/dL (14.0-18.0); MEAN CELL VOLUME 85.6 fl (80.0-105.0); MEAN CORPUSCULAR HEMOGLOBIN 28.3 pg (25.0-35.0); MEAN PLATELET VOLUME 11.8 fl (7.0-11.0); RBC 4.1 10^6/uL (3.5-6.1); WHITE BLOOD COUNT 15.4 10^3/ul (4.5-11.0)
[2017-11-02] MEDS ORDERED: Insulin Lispro (humaLOG) MIX 75/25(10 ml) SC SCH (07:30)
[2017-11-02 07:31] LABS: ALB/GLOB RATIO 1.6 (1.1-1.8); ALBUMIN 3.4 g/dL (3.0-4.8); ALT/SGPT 35 U/L (7-56); AST/SGOT 22 U/L (17-59); BLOOD UREA NITROGEN 6 mg/dL (7-21); GFR NON-AFRICAN AMERICAN > 60
[2017-11-02] MEDS: Insulin Lispro (humaLOG) LOW Coverage SC SCH ×2 (07:48→11:39)
[2017-11-02] MEDS: cefTRIAXone 1 gm 1 GM/100 ML BAG IVPB SCH (09:55)
[2017-11-02] MEDS: Lidocaine 5% Patch TD SCH (09:55)
[2017-11-02] MEDS: Vancomycin 25 MG/ML PO SCH (10:17)
--- NOTE | 2017-11-02 11:42 | PN ---
DATE: 11/02/2017 CARDIOLOGY FOLLOWUP SUBJECTIVE: The patient's breathing is fine. No shortness of breath. PHYSICAL EXAMINATION: VITAL SIGNS: Blood pressure is 113/73, the heart rate is in the 80s. NECK: Negative JVD. LUNGS: Without rales. HEART: Reveals S1, S2. EXTREMITIES: Without edema. LABORATORY DATA: Hemoglobin is 11.6, white count is down to 15,000. Potassium is 4.3. IMPRESSION: 1. Resolution of congestive heart failure. 2. Sepsis. 3. History of dilated cardiomyopathy. 4. Good response to IV ionotropic therapy. PLAN: Given these findings, we can discontinue his ionotropic therapy. The patient can be discharged from a cardiac perspective. Followup and instructions have been given to the patient in detail. Jasbir Santoyo MD
[2017-11-02 13:24] VITALS: BP 110/75; O2SAT 98
[2017-11-02 14:17] VITALS: TEMP 98.5
--- NOTE | 2017-11-02 17:50 | PN ---
DATE: 11/02/2017 ENDO FOLLOWUP NOTE LOCATION: In room 260. SUBJECTIVE: This is a 41-year-old male with recent uncontrolled type 2 insulin-requiring diabetes, now being followed closely for metabolic management. His glycemic levels are fluctuating, but much improved at this time and the latest glucose levels have ranged from 148-162 mg/dL. It was 65 early this morning before breakfast as noted. His latest chemistry showed a BUN of 6, sodium 141, potassium 4.3, chloride 101, CO2 of 32, glucose 74 and creatinine 0.6. So at this time, we will modify once again his basal insulin and lower the Levemir to 40 units subcu at bedtime daily to start tonight. We will continue the premixed insulin regimen with Humalog 75 25 given as 40 units before breakfast and 30 units before dinner to start today. We will titrate incrementally as indicated to optimize metabolic control. He will follow with his primary doctor for ongoing diabetic and medical management as he is scheduled for discharge today. We will follow. Jodi Burrows MD
--- NOTE | 2017-11-02 18:45 | CP.PCM.PN ---
Subjective - Date & Time of Evaluation Date of Evaluation: 11/02/17 Time of Evaluation: 14:45 - Subjective Subjective: Infectious Disease Follow Up: November 02, 2017 41 yo male with extensive PMHx that includes Factor V Leiden s/p DVTs/PEs/IVC filter/L ventricular thrombectomy (2004) on Coumadin, HTN, DM, CHF s/p AICD placement, AICD replacement 2/2 infected hardware (May 2017 at [facility] [place] as per patient), psoriatic arthritis, HLD, and splenectomy (2003) who presents with complaint of shortness of breath and left-sided chest pain x3 days. As per patient, he started to feel unwell 3 weeks ago after receiving last Cosentyn injection. He apparently received Bentyl and Prednisone for 5 days with 10 days of Augmentin. No improvement. Had SOB at home and high glucose levels above 400. Claimed poor oral intake. Elevated trop in ER here at [facility]. Question of medication compliance as the patient's pharmacy has several medications listed there that have not been filled in the past year. Tachcardia under control today. Still with episodes of hypotension. Remains on Vancomycin and Rocephin for antibiotic coverage. Complains of less back pain today. Cultures showing streptococcus anginosus growth. C. Diff studies showing positive antigen but negative toxin. Noted oral Vancomycin started. Blood cultures showing Streptococci Anginosus. For ROBYN on Monday to rule out endocarditis. WBC decreased to 15.4 today. ROBYN did not show any vegetations. Objective - Vital Signs/Intake and Output Vital Signs (last 24 hours): Temp Pulse Resp BP Pulse Ox 98.5 F 76 18 110/75 98 11/02/17 12:00 11/02/17 12:00 11/02/17 12:00 11/02/17 12:00 11/02/17 12:00 Intake and Output: 11/02/17 11/02/17 06:59 18:59 Intake Total 301 70.71 Balance 301 70.71 - Labs Labs: 11/02/17 06:00 11/02/17 06:00 PT 13.2 SECONDS (9.4-12.5) H 11/01/17 11:40 INR 1.14 11/01/17 11:40 APTT 69.1 Seconds (25.1-36.5) H 11/01/17 11:40 - Constitutional Appears: Non-toxic, No Acute Distress, Chronically Ill - Head Exam Head Exam: ATRAUMATIC, NORMOCEPHALIC - Eye Exam Eye Exam: EOMI, PERRL Pupil Exam: NORMAL ACCOMODATION, PERRL - ENT Exam ENT Exam: Mucous Membranes Moist, Normal External Ear Exam, TM's Normal Bilaterally - Respiratory Exam Respiratory Exam: Clear to Ausculation Bilateral, NORMAL BREATHING PATTERN. absent: Rales, Rhonchi, Wheezes - GI/Abdominal Exam GI & Abdominal Exam: Soft, Normal Bowel Sounds. absent: Distended, Tenderness - Extremities Exam Extremities Exam: Full ROM, Normal Inspection - Neurological Exam Neurological Exam: Alert, Awake, CN II-XII Intact, Oriented x3 - Psychiatric Exam Psychiatric exam: Normal Affect, Normal Mood - Skin Skin Exam: Intact, Normal Color Assessment and Plan - Assessment and Plan (Free Text) Assessment: 41 yo male with vague complaints of feeling unwell with significant leukocytosis of 29. Extensive PMHx of L ventricular thromboectomy (2003), R Femur fracture repair (2003), IVC filter placement, arthoscopic debridement, synovectomy for right septic knee joint, splenectomy 2003, tonsillectomy 2016, AICD placement, AICD removal and replacement (2/2 infected hardware). The patient with complaints of SOB and left sided chest pain. No specific findings of the Chest X-ray. Supportive care. Continued on Cefepime and IV Vancomycin at this time. Although not tachycardia today, the patient still has hypotensive episodes. Given a single dose of Gentamicin during this hospitalization. Leukocytosis 19.0 today. High of 56.8. Broad spectrum antibiotics for sepsis of unclear source. Cultures are showing gram positive diplococci. Possible Streptococci. On Ceftriaxone. Still awaiting final cultures. Patient with back pain still but improving. Lund cultures. May need further imaging studies with CT scan. CT angio negative for PE. CT abdomen and pelvis was unremarkable. C. Diff testing was done showing positive antigen but negative toxin. Started on PO Vancomycin. 125mg PO q6hrs 10 day course. On the whole the patient is having less back pain compared to admission. The patient with ROBYN negative for vegetations. Can complete two week course of Rocephin. No new issues. Thank you for allowing me to participate in the care of the patient, we will follow with you.
[2017-11-02 19:03] VITALS: PULSE 93
[2017-11-02] MEDS ORDERED: Insulin Detemir 100 units/ml Vial (Levemir) SC SCH (22:00)
== END 2017-11-02 16:45 | disposition home or self-care (01) | DRG 871 ==
LOC: ED 13:06 → ERH 15:28 → CCU 21:31 → 2RNO 10-28 17:19
PROVIDERS: ADMIT Hospitalist; ATTEND Internal Medicine
PROC: 05HM33Z Insertion of Infusion Device into Right Internal Jugular Vein, Percutaneous Approach (ICD-10-PCS; 2017-10-25)
PROC: B543ZZA Ultrasonography of Right Jugular Veins, Guidance (ICD-10-PCS; 2017-10-25)
PROC: 3E033XZ Introduction of Vasopressor into Peripheral Vein, Percutaneous Approach (ICD-10-PCS; 2017-10-25)
PROC: 02HV33Z Insertion of Infusion Device into Superior Vena Cava, Percutaneous Approach (ICD-10-PCS; 2017-10-31)
PROC: B54MZZA Ultrasonography of Right Upper Extremity Veins, Guidance (ICD-10-PCS; 2017-10-31)
PROC: B246ZZ4 Ultrasonography of Right and Left Heart, Transesophageal (ICD-10-PCS; principal; 2017-10-31 10:00)
DX: A40.9 Streptococcal sepsis, unspecified (principal); E11.10 Type 2 diabetes mellitus with ketoacidosis without coma; I21.4 Non-ST elevation (NSTEMI) myocardial infarction; R65.21 Severe sepsis with septic shock; I42.0 Dilated cardiomyopathy; I50.22 Chronic systolic (congestive) heart failure; D68.2 Hereditary deficiency of other clotting factors; D68.51 Activated protein C resistance; D68.59 Other primary thrombophilia; A04.72 Enterocolitis due to Clostridium difficile, not specified as recurrent; I11.0 Hypertensive heart disease with heart failure; E83.42 Hypomagnesemia; E87.6 Hypokalemia; I25.10 Atherosclerotic heart disease of native coronary artery without angina pectoris; K21.9 Gastro-esophageal reflux disease without esophagitis; L40.50 Arthropathic psoriasis, unspecified; L80 Vitiligo; F17.200 Nicotine dependence, unspecified, uncomplicated; I37.1 Nonrheumatic pulmonary valve insufficiency; E78.5 Hyperlipidemia, unspecified; M54.6 Pain in thoracic spine; Z79.01 Long term (current) use of anticoagulants; Z79.4 Long term (current) use of insulin; Z79.82 Long term (current) use of aspirin; Z86.711 Personal history of pulmonary embolism; Z86.718 Personal history of other venous thrombosis and embolism; Z95.810 Presence of automatic (implantable) cardiac defibrillator; Z90.81 Acquired absence of spleen; Z82.49 Family history of ischemic heart disease and other diseases of the circulatory system